=== PATIENT | female | born 1930 | race American Indian/Alaskan Native ===

== ENCOUNTER 2016-08-31 10:09 | Observation (INO) | payer MEDICARE, OTHER ==
[2016-08-31 10:24] VITALS: BMI 27.8
--- NOTE | 2016-08-31 10:37 | ED PDOC ---
Arrival/HPI - General Historian: Patient <Becky Morgan - Last Filed: 08/31/16 12:25> <Luca Nunezsteff - Last Filed: 08/31/16 16:24> - General Chief Complaint: Shortness Of Breath Time Seen by Provider: 08/31/16 10:15 - History of Present Illness Narrative History of Present Illness (Text): 08/31/16 10:29 86yo female with PMHx of congestive heart failure, arrhythmia with pace maker in place present with complaint of dyspnea on exertion and lower leg edema. States that lower leg edema started a week ago and IVY with orthopnea started yesterday. Admits to cough. Notes that she had cold like symptoms a week ago and just came back from vacation yesterday. She did not take her medications today. Denies chest pain, fever, chills, diaphoresis, calf pain, abdominal pain , nausea, vomiting, diarrhea, dizziness, any other complaint. she have a port in place on her right sided sternal chest. (Becky Morgan) Past Medical History - Provider Review Nursing Documentation Reviewed: Yes - Infectious Disease Hx of Infectious Diseases: None - Tetanus Immunization Tetanus Immunization: Unknown - Reproductive Menopause: Yes - Cardiac Hx Cardiac Disorders: Yes (Chronic Afib, cardiomyopathy) Hx Congestive Heart Failure: Yes (R port chest for primacor) Hx Hypertension: Yes (Pulmonary HTN) Hx Pacemaker: Yes Hx Peripheral Edema: Yes Other/Comment: defib with pacemaker - Pulmonary Hx Respiratory Disorders: Yes Hx Chronic Obstructive Pulmonary Disease (COPD): Yes - Neurological HX Cerebrovascular Accident: Yes - HEENT Hx HEENT Disorder: Yes (eyeglasses) Hx Blind: No - Renal Hx Renal Disorder: No - Endocrine/Metabolic Hx Hypothyroidism: Yes - Hematological/Oncological Hx Blood Transfusions: No Hx Blood Transfusion Reaction: No - Integumentary Hx Dermatological Disorder: Yes (b/l pedal edema) - Musculoskeletal/Rheumatological Hx Falls: Yes - Gastrointestinal Hx Gastrointestinal Disorders: Yes Other/Comment: ABDOMINAL HERNIA REPAIR,CHOLECYSTECTOMY - Genitourinary/Gynecological Hx Genitourinary Disorders: No Hx Reproductive Disorders: No - Psychiatric Hx Emotional Abuse: No Hx Physical Abuse: No Hx Substance Use: No - Surgical History Hx Cholecystectomy: Yes Other/Comment: hammer toe surgery, laminectomy in 1990, had an abdominal hernia repair. pacemaker/defib in L chest wall. R chest wall port placement - Anesthesia Hx Anesthesia: Yes Hx Anesthesia Reactions: No Hx Malignant Hyperthermia: No - Suicidal Assessment Feels Threatened In Home Enviroment: No <Becky Morgan - Last Filed: 08/31/16 12:25> Family/Social History - Physician Review Nursing Documentation Reviewed: Yes Family/Social History: Unknown Family HX Smoking Status: Former Smoker Hx Alcohol Use: No Hx Substance Use: No <Becky Morgan A - Last Filed: 08/31/16 12:25> Allergies/Home Meds <Becky Morgan A - Last Filed: 08/31/16 12:25> <Natty Nunez - Last Filed: 08/31/16 16:24> Allergies/Adverse Reactions: Allergies codeine Allergy (Verified 08/31/16 10:22) SHORTNESS OF BREATH Penicillins Allergy (Verified 08/31/16 10:22) RASH Review of Systems - Physician Review All systems were reviewed & negative as marked: Yes - Review of Systems Constitutional: Normal Eyes: Normal ENT: Normal Respiratory: SOB, Cough. absent: Sputum, Wheezing Cardiovascular: Edema, IVY, Orthopnea. absent: Chest Pain, Palpitations, Calf Pain Gastrointestinal: Normal Genitourinary Female: Normal Musculoskeletal: Normal Skin: Normal Neurological: Normal Endocrine: Normal Hemo/Lymphatic: Normal Psychiatric: Normal <Becky Morgan A - Last Filed: 08/31/16 12:25> Physical Exam Vital Signs Reviewed: Yes Temperature: Afebrile Blood Pressure: Normal Pulse: Regular Respiratory Rate: Normal Appearance: Positive for: Well-Appearing, Non-Toxic, Comfortable Pain Distress: None Mental Status: Positive for: Alert and Oriented X 3 - Systems Exam Head: Present: Atraumatic, Normocephalic Pupils: Present: PERRL Extroacular Muscles: Present: EOMI Conjunctiva: Present: Normal Mouth: Present: Moist Mucous Membranes Neck: Present: Normal Range of Motion Respiratory/Chest: Present: Clear to Auscultation, Good Air Exchange, Other ( bibsilar crackles noted). No: Respiratory Distress, Accessory Muscle Use, Wheezes, Decreased Breath Sounds, Rales, Retracting, Rhonchi, Tachypneic Cardiovascular: Present: Regular Rate and Rhythm, Normal S1, S2. No: Murmurs Abdomen: Present: Normal Bowel Sounds. No: Tenderness, Distention, Peritoneal Signs Back: Present: Normal Inspection Upper Extremity: Present: Normal Inspection. No: Cyanosis, Edema Lower Extremity: Present: Normal Inspection, Edema (3+ bipedal edema noted), CALF TENDERNESS, NORMAL PULSES, Normal ROM. No: Tenderness Neurological: Present: GCS=15, CN II-XII Intact, Speech Normal Skin: Present: Warm, Dry, Normal Color. No: Rashes Psychiatric: Present: Alert, Oriented x 3, Normal Insight, Normal Concentration <Diru,Happiness A - Last Filed: 08/31/16 12:25> Medical Decision Making <Diru,Happiness A - Last Filed: 08/31/16 12:25> <Natty Nunez - Last Filed: 08/31/16 16:24> ED Course and Treatment: 08/31/16 10:38 PT with history of CHF in ED for IVY and orthopnea. She is not hypoxic and anon toxic in ED. LE edema noted. Labs was ordered Chest xray ordered EKG - Completely paced @72bpm Pt likely having CHF exacerbation. She did not take her Lasix today. Will wait for lab and reassess for possible admission. 08/31/16 12:25 Pt remain hemodynamic (Diru,Happiness A) 08/31/16 16:22 Patient seen and examined by me with PA. History and meds reviewed. On exam, she has edema with crackles in both lung kraus, oxygen saturation is 86% on room air, when placed on nasal cannula oxygen saturations improved to 98%. Patient is on milrinone drip, will consult cardiology and restart drip, order lasix for likely component of CHF. Treatment plan d/w hospitalist and family, plan to admit for CHF, cardiac monitoring. On re-exam, no respiratory distress noted. (Natty Nunez) - Lab Interpretations Lab Results: 08/31/16 10:50 08/31/16 11:25 Lab Results 08/31/16 13:10: Urine Color Yellow, Urine Appearance Sl cloudy, Urine pH 6.0, Ur Specific [place] 1.015, Urine Protein Trace H, Urine Glucose (UA) Negative, Urine Ketones Negative, Urine Blood Trace-intact H, Urine Nitrate Negative, Urine Bilirubin Negative, Urine Urobilinogen 1.0 H, Ur Leukocyte Esterase Small H, Urine RBC 0 - 2, Urine WBC 0 - 2, Ur Epithelial Cells 1 - 3 08/31/16 11:25: PT 22.7 H, INR 2.10 H, APTT 31.1 H 08/31/16 11:25: Digoxin 1.5 08/31/16 11:25: Sodium 135, Chloride 96 L, Potassium 3.9, Carbon Dioxide 29, Anion Gap 14, BUN 25 H, Creatinine 1.4, Est GFR ( Amer) 43, Est GFR (Non- Af Amer) 36, Random Glucose 90, Calcium 9.3, Total Bilirubin 1.5 H, AST 29, ALT 27, Alkaline Phosphatase 97, Lactate Dehydrogenase 665, Total Creatine Kinase 69 , Troponin I 0.07 D, NT-Pro-B Natriuret Pep 6300 H, Total Protein 7.2, Albumin 3.7, Globulin 3.5, Albumin/Globulin Ratio 1.1 08/31/16 10:50: pO2 48, VBG pH 7.38, VBG pCO2 56.0, VBG HCO3 33.1 H, VBG Total CO2 34.8 H, VBG O2 Sat (Calc) 84.5 H, VBG Base Excess 6.6 H, VBG Potassium 4.0, Sodium 137.0, Chloride 98.0, Glucose 91, Lactate 1.8, FiO2 21.0, Venous Blood Potassium 4.0 08/31/16 10:50: WBC 6.8, RBC 3.72, Hgb 11.4 L, Hct 35.1 L, MCV 94.4, MCH 30.6, MCHC 32.5, RDW 17.0 H, Plt Count 170, MPV 10.6, Gran % 54.9, Lymph % (Auto) 32.0 , [place] % (Auto) 10.3 H, Eos % (Auto) 1.9, Baso % (Auto) 0.9, Gran # 3.72, Lymph # 2.2, [place] # 0.7 H, Eos # 0.1, Baso # 0.06 - RAD Interpretation Radiology Orders: 08/31/16 10:27 CHEST PORTABLE [RAD] Stat - Medication Orders Current Medication Orders: Amiodarone HCl (Cordarone) 400 mg PO 0800,1800 YAA Colchicine (Colocrys) 0.6 mg PO DAILY YAA Digoxin (Lanoxin) 0.125 mg PO 1400 YAA Last Admin: 08/31/16 15:10 Dose: 0.125 mg Doxycycline Hyclate (Doryx) 100 mg PO BID [facility] PRN Reason: Protocol Furosemide (Lasix) 40 mg IVP BID YAA Guaifenesin (Robitussin) 100 mg PO Q4H PRN PRN Reason: Cough Milrinone Lactate/Dextrose (Primacor 20mg/100ml D5w) 100 mls @ 4.545 mls/hr IV .Q22H1M PRN; Protocol; 0.2 MCG/KG/MIN PRN Reason: TITRATE PER MD ORDER Last Admin: 08/31/16 13:48 Dose: 4.545 mls/hr Isosorbide Mononitrate (Imdur) 60 mg PO 0600 YAA Levothyroxine Sodium (Synthroid) 112 mcg PO 0600 YAA Losartan Potassium (Cozaar) 100 mg PO DAILY YAA Metoprolol Succinate (Toprol Xl) 50 mg PO BRK YAA Pantoprazole Sodium (Protonix Ec Tab) 40 mg PO 0600 YAA Potassium Chloride (K-Dur 20 Meq Er Tab) 20 meq PO 0800,1800 YAA Warfarin Sodium (Coumadin) 7.5 mg PO 1800 [facility] PRN Reason: Protocol Discontinued Medications Doxycycline Hyclate (Doryx) 100 mg PO DAILY [facility] PRN Reason: Protocol Furosemide (Lasix) 40 mg IVP ONCE ONE Stop: 08/31/16 12:22 Last Admin: 08/31/16 13:58 Dose: 40 mg - PA / SENIOR MOBILE DEVELOPER / Resident Statement /DO has reviewed & agrees with the documentation as recorded. /DO has examined the patient and agrees with the treatment plan. <Natty Nunez - Last Filed: 08/31/16 16:24> Disposition/Present on Arrival - Present on Arrival Any Indicators Present on Arrival: No History of DVT/PE: No History of Uncontrolled Diabetes: No Urinary Catheter: No History of Decub. Ulcer: No History Surgical Site Infection Following: None - Disposition Have Diagnosis and Disposition been Completed?: Yes Disposition Time: 12:25 <Becky Morgan - Last Filed: 08/31/16 12:25> <Natty Nunez - Last Filed: 08/31/16 16:24> - Disposition Diagnosis: Congestive heart failure, Pneumonia Disposition: HOSPITALIZED Patient Problems: Current Active Problems Problem Status Onset Congestive heart failure Acute Pneumonia Acute Condition: FAIR
[2016-08-31 11:15] LABS: BASO # 0.06 K/mm3 (0.0-2.0); BASO % 0.9 % (0.0-3.0); EOS # 0.1 (0.0-0.7); EOS % 1.9 % (1.5-5.0); GRAN # 3.72 (1.4-6.5); GRAN % 54.9 % (50.0-68.0); HEMOGLOBIN 11.4 gm/dL (12.0-16.0); LYMPH # 2.2 (1.2-3.4); MEAN CELL VOLUME 94.4 fL (80.0-105.0); MEAN CORPUSCULAR HEMOGLOBIN 30.6 pg (25.0-35.0); MEAN CORPUSCULAR HGB CONC 32.5 g/dl (31.0-37.0); MEAN PLATELET VOLUME 10.6 fl (7.0-11.0); MONO # 0.7 (0.1-0.6); MONO % 10.3 % (1.0-6.0); PLATELET COUNT 170 10^3/uL (120.0-450.0); RBC 3.72 10^6/uL (3.5-6.1); WHITE BLOOD COUNT 6.8 10^3/ul (4.5-11.0)
[2016-08-31 11:16] LABS: VENOUS BLOOD GAS BASE EXCESS 6.6 mmol/L (0.0-2.0); VENOUS BLOOD GAS PO2 48 mm/Hg (30-55); VENOUS BLOOD PH 7.38 (7.32-7.43)
[2016-08-31 11:42] LABS: ALB/GLOB RATIO 1.1 (1.1-1.8); ALBUMIN 3.7 g/dL (3.0-4.8); CALCIUM 9.3 mg/dL (8.4-10.5)
[2016-08-31 11:47] LABS: INR 2.1 (0.93-1.08); PARTIAL THROMBOPLASTIN TIME 31.1 Seconds (23.7-30.8); PROTHROMBIN TIME 22.7 Seconds (9.9-11.8)
--- NOTE | 2016-08-31 11:52 | CARD ---
APPROVED REPORT EKG Measurement Heart [id number] <Conclusion> Electronic ventricular pacemaker
[2016-08-31 11:54] LABS: TROPONIN I 0.07 ng/mL
--- NOTE | 2016-08-31 12:02 | RAD ---
HISTORY: SOB COMPARISON: 03/29/2016 FINDINGS: The right IJV line terminates at the cavoatrial junction. LUNGS: Lung markings are accentuated with prominent central vasculature. There is pulmonary redistribution. There is question of left retrocardiac opacity PLEURA: There are small pleural effusions. No pneumothorax. CARDIOVASCULAR: There is persistent moderate cardiomegaly. Stable position of left-sided transvenous permanent pacing device. OSSEOUS STRUCTURES: No significant abnormalities. VISUALIZED UPPER ABDOMEN: Normal. OTHER FINDINGS: None. IMPRESSION: Findings are compatible with mild congestive heart failure. Left lower lobe atelectasis/pneumonia. Follow-up is advised.
[2016-08-31 13:24] LABS: URINE APPEARANCE SL CLOUDY (CLEAR); URINE BILIRUBIN NEGATIVE (NEGATIVE); URINE BLOOD TRACE-INTACT (NEGATIVE); URINE COLOR YELLOW (YELLOW); URINE GLUCOSE (UA) NEGATIVE (NEGATIVE); URINE LEUKOCYTE ESTERASE SMALL Leu/uL (NEGATIVE); URINE NITRATE NEGATIVE (NEGATIVE); URINE PROTEIN TRACE mg/dL (<30 mg/dL)
[2016-08-31 13:40] LABS: URINE RBC 0 - 2 /hpf (0-2); URINE WBC 0 - 2 /hpf (0-6)
[2016-08-31] MEDS: Milrinone 20mg/100ml D5W 100 ML IV PRN (13:48)
[2016-08-31] MEDS ORDERED: guaiFENesin 100 mg/5 ml Syrup UD PO PRN (15:00)
[2016-08-31] MEDS: Digoxin 125 mcg (0.125 mg) Tab PO SCH (15:10)
--- NOTE | 2016-08-31 15:39 | CP.PCM.HP ---
<Dino Prather - Last Filed: 08/31/16 15:21> History of Present Illness - History of Present Illness History of Present Illness: CC: Shortness of breath This is a 86 y/o female with hx systolic heart failure, atrial fibrillation - on coumadin, hypothyroidism presenting with complaints of shortness of breath for the past 5 days. Patient and daughter, who is at bedside, note increasing dyspnea on exertion. Patient ambulates about 15 to 20 paces back and forth to the bathroom at home. She is unable to exert herself beyond this without significant dyspnea. Patient and daughter state she is compliant with all medications. Patient has been on Milrinone infusion for about 2 years. Patient does report a cold-like illness about 3 weeks ago with an associated cough. She denies any other more recent illness. Patient also denies any chest pain, arm pain, or back pain. She further denies abdominal pain, nausea, vomiting or diarrhea. Most recent echo done on 03/2016 reveals an EF of 8.7% with 4 chamber dilation. PMH: systolic heart failure s/p ICD placement, Afib w/ pacer, hypothyroidism, gout, PSH: laminectomy, cholecystectomy, hernia repair FH: non-contributory Allergies: codeine Social hx: former smoker - quit 1990. Denies alcohol or illicit drug use PMD: Dr. [facility] [place]: Dr. Alcantara Present on Admission - Present on Admission Any Indicators Present on Admission: No Review of Systems - Constitutional Constitutional: Anorexia. absent: Chills, Fever - EENT Eyes: absent: Blurred Vision, Change in Vision Nose/Mouth/Throat: absent: Nasal Congestion, Nasal Discharge, Sore Throat - Cardiovascular Cardiovascular: Dyspnea, Dyspnea on Exertion, Edema, Leg Edema. absent: Chest Pain, Diaphoresis, Lightheadedness, Palpitations, Syncope - Respiratory Respiratory: Cough, Dyspnea. absent: Hemoptysis, Wheezing - Gastrointestinal Gastrointestinal: absent: Abdominal Pain, Diarrhea, Nausea, Vomiting - Genitourinary Genitourinary: absent: Dysuria, Hematuria - Musculoskeletal Musculoskeletal: absent: Back Pain - Integumentary Integumentary: absent: Pruritus, Rash - Neurological Neurological: absent: Dizziness, Numbness, Focal Weakness - Psychiatric Psychiatric: absent: Anxiety, Depression - Endocrine Endocrine: absent: Fatigue, Palpitations Past Patient History - Infectious Disease Hx of Infectious Diseases: None - Tetanus Immunizations Tetanus Immunization: Unknown - Past Medical History & Family History Past Medical History?: Yes - Past Social History Smoking Status: Former Smoker - CARDIAC Hx Cardiac Disorders: Yes (Chronic Afib, cardiomyopathy) Hx Congestive Heart Failure: Yes (R port chest for primacor) Hx Hypertension: Yes (Pulmonary HTN) Hx Pacemaker: Yes Hx Peripheral Edema: Yes Other/Comment: defib with pacemaker - PULMONARY Hx Respiratory Disorders: Yes Hx Chronic Obstructive Pulmonary Disease (COPD): Yes - NEUROLOGICAL HX Cerebrovascular Accident: Yes - HEENT Hx HEENT Problems: Yes (eyeglasses) Hx Blind: No - RENAL Hx Chronic Kidney Disease: No - ENDOCRINE/METABOLIC Hx Hypothyroidism: Yes - HEMATOLOGICAL/ONCOLOGICAL Hx Blood Transfusions: No Hx Blood Transfusion Reaction: No - INTEGUMENTARY Hx Dermatological Problems: Yes (b/l pedal edema) - MUSCULOSKELETAL/RHEUMATOLOGICAL Hx Falls: Yes - GASTROINTESTINAL Hx Gastrointestinal Disorders: Yes Other/Comment: ABDOMINAL HERNIA REPAIR,CHOLECYSTECTOMY - GENITOURINARY/GYNECOLOGICAL Hx Genitourinary Disorders: No Hx Reproductive Disorders: No - PSYCHIATRIC Hx Emotional Abuse: No Hx Physical Abuse: No Hx Substance Use: No - SURGICAL HISTORY Hx Cholecystectomy: Yes Other/Comment: hammer toe surgery, laminectomy in 1990, had an abdominal hernia repair. pacemaker/defib in L chest wall. R chest wall port placement - ANESTHESIA Hx Anesthesia: Yes Hx Anesthesia Reactions: No Hx Malignant Hyperthermia: No Meds Allergies/Adverse Reactions: Allergies Allergy/AdvReac Type Severity Reaction Status Date / Time codeine Allergy SHORTNESS Verified 08/31/16 10:22 OF BREATH Penicillins Allergy RASH Verified 08/31/16 10:22 Physical Exam - Constitutional Appears: Non-toxic, No Acute Distress - Head Exam Head Exam: ATRAUMATIC, NORMOCEPHALIC - Eye Exam Eye Exam: EOMI, PERRL - ENT Exam ENT Exam: Mucous Membranes Dry - Neck Exam Neck exam: Positive for: Normal Inspection - Respiratory Exam Respiratory Exam: Rales (right base ). absent: Accessory Muscle Use, Clear to Auscultation Bilateral, Rhonchi, Wheezes, Respiratory Distress - Cardiovascular Exam Cardiovascular Exam: REGULAR RHYTHM, +S1, +S2 - GI/Abdominal Exam GI & Abdominal Exam: Soft. absent: Distended, Tenderness - Extremities Exam Extremities exam: Positive for: full ROM, pedal edema, pedal pulses present. Negative for: calf tenderness, tenderness - Neurological Exam Neurological exam: Alert, Oriented x3 - Psychiatric Exam Psychiatric exam: Normal Affect, Normal Mood - Skin Skin Exam: Dry, Warm Results - Vital Signs Recent Vital Signs: Last Vital Signs Temp 97.9 F 08/31/16 10:24 Pulse 70 08/31/16 13:48 Resp 18 08/31/16 13:26 BP 140/71 08/31/16 13:58 Pulse Ox 97 08/31/16 13:26 - Labs Result Diagrams: 08/31/16 10:50 08/31/16 11:25 Assessment & Plan - Assessment and Plan (Free Text) Assessment: 86 y/o female with severe systolic heart failure presenting with shortness of breath secondary to CHF exacerbation. Recent echo reveals EF 8.7%. Patient is on continuous Milrinone infusion with an ICD. There is some pulmonary venous congestion noted on chest xray however this is similar to old films. There is mild LE edema. No evidence of acute cardiac ischemia. exacerbation of systolic heart failure - Lasix 40mg IV daily - continue home medications includin Digoxin, Milrinone, Lopressor, Losartan - Cardiology consulted - f.u I/O's - low sodium diet - started on Doxycycline as there is a recent hx of illness with cough hx atrial fibrillation - afib rate controlled - continue amiodarone - continue warfarin - f/u daily INR hx hypothroidism - continue synthroid - f/u TSH hx gout - continue colchicine ppx - cont warfarin - scd's - protonix 40 mg iv daily Patient seen and discussed with attending. <Marvin Guerrero - Last Filed: 08/31/16 16:25> Results - Vital Signs Recent Vital Signs: Last Vital Signs Temp 97.9 F 08/31/16 10:24 Pulse 70 08/31/16 15:27 Resp 18 08/31/16 15:27 BP 138/68 08/31/16 15:27 Pulse Ox 100 08/31/16 15:27 - Labs Result Diagrams: 08/31/16 10:50 08/31/16 11:25 Attending/Attestation - Attestation I have personally seen and examined this patient.: Yes I have fully participated in the care of the patient.: Yes I have reviewed all pertinent clinical information: Yes Notes (Text): 08/31/16 16:17 attending note; Patient seen and examined with resident in ER. Patient's daughter by the bedside. Patient is a 85-year-old female with a past medical history of cardiomyopathy, AICD, valvular heart disease, pulmonary hypertension, on home milrinone drip is admitted with increasing leg swelling and shortness of breath. Acute decompensated systolic heart failure. strict I's and O's. Daily weights. Cardiac diet ordered. Cardiology evaluation with requested. Continue milrinone drip. last echo showed EF of 9% in mar 2016.. advanced cardiomyopathy. continue digoxin, amiadarone, cozaar amd metoprolol. Therapeutic INR; continue on Coumadin. Upon discharge patient will follow-up with PMD . patient is DNR only. The diagnosis and treatment discussed with patient and patient's daughter in detail. 08/31/16 16:24
[2016-08-31] MEDS: Potassium Chloride 20 mEq ER Tab PO SCH (19:02)
[2016-08-31] MEDS ORDERED: Pneumococcal 23-Valent Vaccine IM ONE (19:40)
[2016-09-01] MEDS: Levothyroxine 112 MCG TAB PO SCH (05:34)
[2016-09-01] MEDS: Pantoprazole 40 mg EC Tab PO SCH (05:34)
[2016-09-01] MEDS: Potassium Chloride 20 mEq ER Tab PO SCH ×2 (09:23→17:53)
[2016-09-01] MEDS: Metoprolol Succinate 50 mg XL Tab PO SCH (09:23)
--- NOTE | 2016-09-01 12:09 | CP.PCM.PN ---
<YamilkaDino - Last Filed: 09/02/16 06:59> Subjective - Date & Time of Evaluation Date of Evaluation: 09/01/16 Time of Evaluation: 12:03 - Subjective Subjective: Patient seen and examined. No acute events overnight. Patient continues to complain of shortness of breath. Denies chest pain, palpitations. Continued on nasal oxygen. Objective - Vital Signs/Intake and Output Vital Signs (last 24 hours): Temp Pulse Resp BP Pulse Ox 97.8 F 70 20 140/82 98 09/01/16 05:57 09/01/16 09:23 09/01/16 05:57 09/01/16 09:24 09/01/16 05:57 Intake and Output: 09/01/16 09/01/16 06:59 18:59 Intake Total 148 Output Total 0 Balance 148 - Medications Medications: Current Medications Amiodarone HCl (Cordarone) 400 mg PO 0800,1800 [facility] Last Admin: 09/01/16 09:22 Dose: 400 mg Colchicine (Colocrys) 0.6 mg PO DAILY [facility] Last Admin: 09/01/16 09:23 Dose: 0.6 mg Digoxin (Lanoxin) 0.125 mg PO 1400 [facility] Last Admin: 08/31/16 15:10 Dose: 0.125 mg Doxycycline Hyclate (Doryx) 100 mg PO BID [facility] PRN Reason: Protocol Last Admin: 09/01/16 09:23 Dose: 100 mg Furosemide (Lasix) 40 mg IVP BID [facility] Last Admin: 09/01/16 09:24 Dose: 40 mg Guaifenesin (Robitussin) 100 mg PO Q4H PRN PRN Reason: Cough Milrinone Lactate/Dextrose (Primacor 20mg/100ml D5w) 100 mls @ 4.545 mls/hr IV .Q22H1M PRN; Protocol; 0.2 MCG/KG/MIN PRN Reason: TITRATE PER MD ORDER Last Admin: 08/31/16 13:48 Dose: 4.545 mls/hr Isosorbide Mononitrate (Imdur) 60 mg PO 0600 [facility] Last Admin: 09/01/16 05:34 Dose: 60 mg Levothyroxine Sodium (Synthroid) 112 mcg PO 0600 [facility] Last Admin: 09/01/16 05:34 Dose: 112 mcg Losartan Potassium (Cozaar) 100 mg PO DAILY [facility] Last Admin: 09/01/16 09:22 Dose: 100 mg Metoprolol Succinate (Toprol Xl) 50 mg PO BRK [facility] Last Admin: 09/01/16 09:23 Dose: 50 mg Pantoprazole Sodium (Protonix Ec Tab) 40 mg PO 0600 [facility] Last Admin: 09/01/16 05:34 Dose: 40 mg Potassium Chloride (K-Dur 20 Meq Er Tab) 20 meq PO 0800,1800 [facility] Last Admin: 09/01/16 09:23 Dose: 20 meq Warfarin Sodium (Coumadin) 7.5 mg PO 1800 [facility] PRN Reason: Protocol Last Admin: 08/31/16 19:02 Dose: 7.5 mg - Labs Labs: PT 22.7 Seconds (9.9-11.8) H 08/31/16 11:25 INR 2.10 (0.93-1.08) H 08/31/16 11:25 APTT 31.1 Seconds (23.7-30.8) H 08/31/16 11:25 - Constitutional Appears: Non-toxic, No Acute Distress - Head Exam Head Exam: ATRAUMATIC, NORMOCEPHALIC - Eye Exam Eye Exam: EOMI, PERRL - ENT Exam ENT Exam: Mucous Membranes Moist - Neck Exam Neck Exam: Full ROM, Normal Inspection - Respiratory Exam Respiratory Exam: Rales (bases). absent: Clear to Ausculation Bilateral, Rhonchi, Wheezes - Cardiovascular Exam Cardiovascular Exam: REGULAR RHYTHM, +S1, +S2 - GI/Abdominal Exam GI & Abdominal Exam: Soft, Normal Bowel Sounds. absent: Tenderness - Extremities Exam Extremities Exam: Full ROM, Pedal Edema (bilaterally extending to ankles ) - Neurological Exam Neurological Exam: Alert, Awake, Oriented x3 - Psychiatric Exam Psychiatric exam: Normal Affect, Normal Mood - Skin Skin Exam: Dry, Warm Assessment and Plan - Assessment and Plan (Free Text) Assessment: 86 y/o female with severe systolic heart failure presenting with shortness of breath secondary to CHF exacerbation. Recent echo reveals EF 8.7%. Patient is on continuous Milrinone infusion with an ICD. There is some pulmonary venous congestion noted on chest xray however this is similar to old films. There is mild LE edema. No evidence of acute cardiac ischemia. exacerbation of systolic heart failure - Lasix 40mg IV daily - continue home medications includin Digoxin, Milrinone, Lopressor, Losartan - Cardiology consulted - f.u I/O's - low sodium diet - started on Doxycycline as there is a recent hx of illness with cough hx atrial fibrillation - afib rate controlled - continue amiodarone - continue warfarin - f/u daily INR hx hypothroidism - continue synthroid - f/u TSH hx gout - continue colchicine ppx - cont warfarin - scd's - protonix 40 mg iv daily Patient seen and discussed with attending. <Marleny Man - Last Filed: 09/02/16 21:44> Objective - Vital Signs/Intake and Output Vital Signs (last 24 hours): Temp Pulse Resp BP Pulse Ox 97.5 F L 73 18 148/71 100 09/02/16 18:00 09/02/16 18:00 09/02/16 18:00 09/02/16 18:00 09/02/16 06:00 Intake and Output: 09/02/16 09/03/16 18:59 06:59 Intake Total 522 898 Output Total 500 850 Balance 22 48 - Medications Medications: Current Medications Amiodarone HCl (Cordarone) 400 mg PO 0800,1800 [facility] Last Admin: 09/02/16 08:36 Dose: Not Given Colchicine (Colocrys) 0.6 mg PO DAILY [facility] Last Admin: 09/02/16 10:04 Dose: 0.6 mg Digoxin (Lanoxin) 0.125 mg PO 1400 [facility] Last Admin: 09/02/16 14:21 Dose: 0.125 mg Doxycycline Hyclate (Doryx) 100 mg PO BID [facility] PRN Reason: Protocol Last Admin: 09/02/16 17:39 Dose: 100 mg Furosemide (Lasix) 40 mg IVP BID [facility] Last Admin: 09/02/16 17:38 Dose: 40 mg Guaifenesin (Robitussin) 100 mg PO Q4H PRN PRN Reason: Cough Milrinone Lactate/Dextrose (Primacor 20mg/100ml D5w) 100 mls @ 4.545 mls/hr IV .Q22H1M PRN; Protocol; 0.2 MCG/KG/MIN PRN Reason: TITRATE PER MD ORDER Last Admin: 09/02/16 09:57 Dose: 0.19 mcg/kg/min, 4.5 mls/hr Isosorbide Mononitrate (Imdur) 60 mg PO 0600 [facility] Last Admin: 09/02/16 05:35 Dose: 60 mg Levothyroxine Sodium (Synthroid) 112 mcg PO 0600 [facility] Last Admin: 09/02/16 05:35 Dose: 112 mcg Losartan Potassium (Cozaar) 100 mg PO DAILY [facility] Last Admin: 09/02/16 10:05 Dose: 100 mg Metoprolol Succinate (Toprol Xl) 50 mg PO BRK [facility] Last Admin: 09/02/16 08:40 Dose: 50 mg Pantoprazole Sodium (Protonix Ec Tab) 40 mg PO 0600 [facility] Last Admin: 09/02/16 05:35 Dose: 40 mg Potassium Chloride (K-Dur 20 Meq Er Tab) 20 meq PO 0800,1800 [facility] Last Admin: 09/02/16 17:39 Dose: 20 meq Warfarin Sodium (Coumadin) 7.5 mg PO 1800 [facility] PRN Reason: Protocol Last Admin: 09/02/16 17:39 Dose: 7.5 mg - Labs Labs: 09/02/16 06:10 09/02/16 06:10 PT 25.4 Seconds (9.9-11.8) H 09/02/16 06:10 INR 2.35 (0.93-1.08) H 09/02/16 06:10 APTT 31.1 Seconds (23.7-30.8) H 08/31/16 11:25 Attending/Attestation - Attestation I have personally seen and examined this patient.: Yes I have fully participated in the care of the patient.: Yes I have reviewed all pertinent clinical information, including history, physical exam and plan: Yes Notes (Text): 09/01/16 86 year old female with past medical history of cardiomyopathy, AICD, pulmonary hypertension and afib who is admitted for CHF exacerbation. Continue with iv lasix and milrinone. Daily weights and strict Is and Os. She is also on coumadin for anticoagulation. Cardiology is following. Marleny Man MD Hospitalist.
[2016-09-01] MEDS: Milrinone 20mg/100ml D5W 100 ML IV PRN (12:22)
--- NOTE | 2016-09-01 12:59 | CP.PCM.CON ---
History of Present Illness - History of Present Illness History of Present Illness: Britt Barlow is an 86-year-old old and well known to us with a history of a congestive cardiomyopathy and severe LV dysfunction. She was admitted with worsening dyspnea and leg edema from home. She was treated with IV diuretics in the emergency room. She feels mildly improved. She continues to have exertional dyspnea with minimal effort. She claims compliance with her medications. She has been on chronic home milrinone infusion as well. Review of Systems - Constitutional Constitutional: Weight Gain - Cardiovascular Cardiovascular: Dyspnea on Exertion, Edema - Respiratory Respiratory: Dyspnea - Gastrointestinal Gastrointestinal: absent: As Per HPI, Abdominal Pain, Belching, Bloating, Change in Bowel Habits, Change in Stool Character, Coffee Ground Emesis, Constipation, Cramping, Diarrhea, Dyspepsia, Dysphagia, Early Satiety, Excessive Flatus, Fecal Incontinence, Heartburn, Hematemesis, Hematochezia, Loose Stools, Melena, Nausea, Odynophagia, Temesmus, Vomiting, Other - Musculoskeletal Musculoskeletal: Limited Range of Motion, Stiffness Past Patient History - Infectious Disease Hx of Infectious Diseases: None - Tetanus Immunizations Tetanus Immunization: Unknown - Past Medical History & Family History Past Medical History?: Yes - Past Social History Smoking Status: Former Smoker - CARDIAC Hx Cardiac Disorders: Yes (Chronic Afib, cardiomyopathy) Hx Congestive Heart Failure: Yes (R port chest for primacor) Hx Hypertension: Yes (Pulmonary HTN) Hx Internal Defibrillator: Yes Hx Pacemaker: Yes Hx Peripheral Edema: Yes (+1 pitting ) Other/Comment: defib with pacemaker, aicd implant 2006 replaced 2011, rcw pac for milrinone infusion - PULMONARY Hx Respiratory Disorders: Yes Hx Chronic Obstructive Pulmonary Disease (COPD): Yes - NEUROLOGICAL HX Cerebrovascular Accident: Yes - HEENT Hx HEENT Problems: Yes (eyeglasses) Hx Blind: No Hx Cataracts: Yes (r eye 01/24/13) - RENAL Hx Chronic Kidney Disease: No - ENDOCRINE/METABOLIC Hx Hypothyroidism: Yes - HEMATOLOGICAL/ONCOLOGICAL Hx Blood Transfusions: No Hx Blood Transfusion Reaction: No - INTEGUMENTARY Hx Dermatological Problems: Yes (b/l pedal edema) - MUSCULOSKELETAL/RHEUMATOLOGICAL Hx Falls: No - GASTROINTESTINAL Hx Gastrointestinal Disorders: Yes Other/Comment: ABDOMINAL HERNIA REPAIR,CHOLECYSTECTOMY - GENITOURINARY/GYNECOLOGICAL Other/Comment: r breast bx benigh - PSYCHIATRIC Hx Substance Use: No - SURGICAL HISTORY Hx Cholecystectomy: Yes Other/Comment: hammer toe surgery, laminectomy in 1990, had an abdominal hernia repair. pacemaker/defib in L chest wall. R chest wall port placement - ANESTHESIA Hx Anesthesia: Yes Hx Anesthesia Reactions: No Hx Malignant Hyperthermia: No Meds Allergies/Adverse Reactions: Allergies Allergy/AdvReac Type Severity Reaction Status Date / Time codeine Allergy SHORTNESS Verified 08/31/16 10:22 OF BREATH Penicillins Allergy RASH Verified 08/31/16 10:22 - Medications Medications: Current Medications Amiodarone HCl (Cordarone) 400 mg PO 0800,1800 [facility] Last Admin: 09/01/16 09:22 Dose: 400 mg Colchicine (Colocrys) 0.6 mg PO DAILY [facility] Last Admin: 09/01/16 09:23 Dose: 0.6 mg Digoxin (Lanoxin) 0.125 mg PO 1400 [facility] Last Admin: 08/31/16 15:10 Dose: 0.125 mg Doxycycline Hyclate (Doryx) 100 mg PO BID [facility] PRN Reason: Protocol Last Admin: 09/01/16 09:23 Dose: 100 mg Furosemide (Lasix) 40 mg IVP BID [facility] Last Admin: 09/01/16 09:24 Dose: 40 mg Guaifenesin (Robitussin) 100 mg PO Q4H PRN PRN Reason: Cough Milrinone Lactate/Dextrose (Primacor 20mg/100ml D5w) 100 mls @ 4.545 mls/hr IV .Q22H1M PRN; Protocol; 0.2 MCG/KG/MIN PRN Reason: TITRATE PER MD ORDER Last Admin: 09/01/16 12:22 Dose: 0.19 mcg/kg/min, 4.5 mls/hr Isosorbide Mononitrate (Imdur) 60 mg PO 0600 [facility] Last Admin: 09/01/16 05:34 Dose: 60 mg Levothyroxine Sodium (Synthroid) 112 mcg PO 0600 [facility] Last Admin: 09/01/16 05:34 Dose: 112 mcg Losartan Potassium (Cozaar) 100 mg PO DAILY [facility] Last Admin: 09/01/16 09:22 Dose: 100 mg Metoprolol Succinate (Toprol Xl) 50 mg PO BRK [facility] Last Admin: 09/01/16 09:23 Dose: 50 mg Pantoprazole Sodium (Protonix Ec Tab) 40 mg PO 0600 [facility] Last Admin: 09/01/16 05:34 Dose: 40 mg Potassium Chloride (K-Dur 20 Meq Er Tab) 20 meq PO 0800,1800 [facility] Last Admin: 09/01/16 09:23 Dose: 20 meq Warfarin Sodium (Coumadin) 7.5 mg PO 1800 [facility] PRN Reason: Protocol Last Admin: 08/31/16 19:02 Dose: 7.5 mg Physical Exam - Constitutional Appears: Chronically Ill - Head Exam Head Exam: NORMAL INSPECTION - Respiratory Exam Additional comments: Diminished breath sounds at the bases. Bilateral rhonchi are heard. - Cardiovascular Exam Cardiovascular Exam: REGULAR RHYTHM - Expanded Cardiovascular Exam Expanded Type of murmur: Systolic Location: [place], [place] Lower Sternal Border - GI/Abdominal Exam GI & Abdominal Exam: Normal Bowel Sounds, Soft - Extremities Exam Extremities exam: Positive for: pedal edema - Neurological Exam Neurological exam: Alert, Oriented x3 - Psychiatric Exam Psychiatric exam: Normal Affect, Normal Mood Results - Vital Signs Recent Vital Signs: Last Vital Signs Temp 97.8 F 09/01/16 05:57 Pulse 74 09/01/16 12:22 Resp 19 09/01/16 12:00 BP 125/69 09/01/16 12:22 Pulse Ox 98 09/01/16 05:57 - Labs Result Diagrams: 08/31/16 10:50 08/31/16 11:25 - EKG Data EKG comments: ventricular paced rhythm, unchanged Assessment & Plan - Assessment and Plan (Free Text) Assessment: Impression: * Decompensated congestive heart failure, acute on chronic, systolic * severe congestive cardiomyopathy * Status post ICD implant Recommendations: * Continue milrinone infusion. * IV diuretics for now. * Continue rest of her oral medications unchanged. * Leg elevation and sodium restriction. * Will follow. - Date & Time Date: 09/01/16 Time: 12:00
[2016-09-01] MEDS: Digoxin 125 mcg (0.125 mg) Tab PO SCH (13:45)
[2016-09-02 00:16] VITALS: O2SAT 100
[2016-09-02] MEDS: Levothyroxine 112 MCG TAB PO SCH (05:35)
[2016-09-02] MEDS: Pantoprazole 40 mg EC Tab PO SCH (05:35)
[2016-09-02 06:40] LABS: INR 2.35 (0.93-1.08); PROTHROMBIN TIME 25.4 Seconds (9.9-11.8)
[2016-09-02 06:44] LABS: ALBUMIN 3.6 g/dL (3.0-4.8); CALCIUM 8.9 mg/dL (8.4-10.5)
[2016-09-02 06:54] LABS: BASO # 0.04 K/mm3 (0.0-2.0); BASO % 0.6 % (0.0-3.0); EOS # 0.2 (0.0-0.7); EOS % 3.4 % (1.5-5.0); GRAN # 4.13 (1.4-6.5); GRAN % 61.3 % (50.0-68.0); HEMOGLOBIN 11.3 gm/dL (12.0-16.0); LYMPH # 1.6 (1.2-3.4); LYMPH % 24.2 % (22.0-35.0); MEAN CELL VOLUME 94.4 fL (80.0-105.0); MEAN CORPUSCULAR HEMOGLOBIN 30.1 pg (25.0-35.0); MEAN CORPUSCULAR HGB CONC 31.9 g/dl (31.0-37.0); MEAN PLATELET VOLUME 10.7 fl (7.0-11.0); MONO # 0.7 (0.1-0.6); MONO % 10.5 % (1.0-6.0); PLATELET COUNT 152 10^3/uL (120.0-450.0); RBC 3.75 10^6/uL (3.5-6.1); WHITE BLOOD COUNT 6.7 10^3/ul (4.5-11.0)
--- NOTE | 2016-09-02 08:34 | CP.PCM.PN ---
Subjective - Date & Time of Evaluation Date of Evaluation: 09/02/16 Time of Evaluation: 07:00 - Subjective Subjective: Stable on 2R. Less dyspnea. She feels better. GI distress with amiod. doses>she wants to stop it. V/S noted. V. Paced PE: Lungs: rhonchi Cor.: S1S2 Abd.: soft Ext.: + edema Neuro.: alert I/O not done Labs noted: INR = 2.35, Cr.= 1.3, K+= 4.2 BC x2 NG at 24 hrs. Objective - Vital Signs/Intake and Output Vital Signs (last 24 hours): Temp Pulse Resp BP Pulse Ox 97.3 F L 65 18 126/72 100 09/02/16 06:00 09/02/16 06:00 09/02/16 06:00 09/02/16 06:00 09/02/16 06:00 Intake and Output: 09/02/16 09/02/16 06:59 18:59 Intake Total 120 122 Balance 120 122 - Medications Medications: Current Medications Amiodarone HCl (Cordarone) 400 mg PO 0800,1800 [facility] Last Admin: 09/01/16 18:01 Dose: Not Given Colchicine (Colocrys) 0.6 mg PO DAILY [facility] Last Admin: 09/01/16 09:23 Dose: 0.6 mg Digoxin (Lanoxin) 0.125 mg PO 1400 [facility] Last Admin: 09/01/16 13:45 Dose: 0.125 mg Doxycycline Hyclate (Doryx) 100 mg PO BID [facility] PRN Reason: Protocol Last Admin: 09/01/16 17:55 Dose: 100 mg Furosemide (Lasix) 40 mg IVP BID [facility] Last Admin: 09/01/16 17:55 Dose: 40 mg Guaifenesin (Robitussin) 100 mg PO Q4H PRN PRN Reason: Cough Milrinone Lactate/Dextrose (Primacor 20mg/100ml D5w) 100 mls @ 4.545 mls/hr IV .Q22H1M PRN; Protocol; 0.2 MCG/KG/MIN PRN Reason: TITRATE PER MD ORDER Last Admin: 09/01/16 12:22 Dose: 0.19 mcg/kg/min, 4.5 mls/hr Isosorbide Mononitrate (Imdur) 60 mg PO 0600 [facility] Last Admin: 09/02/16 05:35 Dose: 60 mg Levothyroxine Sodium (Synthroid) 112 mcg PO 0600 [facility] Last Admin: 09/02/16 05:35 Dose: 112 mcg Losartan Potassium (Cozaar) 100 mg PO DAILY [facility] Last Admin: 09/01/16 09:22 Dose: 100 mg Metoprolol Succinate (Toprol Xl) 50 mg PO BRK [facility] Last Admin: 09/01/16 09:23 Dose: 50 mg Pantoprazole Sodium (Protonix Ec Tab) 40 mg PO 0600 [facility] Last Admin: 09/02/16 05:35 Dose: 40 mg Potassium Chloride (K-Dur 20 Meq Er Tab) 20 meq PO 0800,1800 [facility] Last Admin: 09/01/16 17:53 Dose: 20 meq Warfarin Sodium (Coumadin) 7.5 mg PO 1800 [facility] PRN Reason: Protocol Last Admin: 09/01/16 17:54 Dose: 7.5 mg - Labs Labs: 09/02/16 06:10 09/02/16 06:10 PT 25.4 Seconds (9.9-11.8) H 09/02/16 06:10 INR 2.35 (0.93-1.08) H 09/02/16 06:10 APTT 31.1 Seconds (23.7-30.8) H 08/31/16 11:25 Assessment and Plan - Assessment and Plan (Free Text) Assessment: Dyspnea and edema CHF, Class IV with exacerbation CMP with severe LVD on home milrinone infusion VT/Bi-V ICD Severe MR, TR and PH CVA Gout Hypothyroidism S/P GB, Back and hernia surgeries Plan: Continue IV Lasix and milrinone infusion Hold amiodarone b/o GI upset Monitor I/O, weights, sats., labs. OOB as mireille. Will follow.
[2016-09-02] MEDS: Potassium Chloride 20 mEq ER Tab PO SCH ×2 (08:39→17:39)
[2016-09-02] MEDS: Metoprolol Succinate 50 mg XL Tab PO SCH (08:40)
[2016-09-02] MEDS: Milrinone 20mg/100ml D5W 100 ML IV PRN (09:57)
--- NOTE | 2016-09-02 11:50 | CP.PCM.PN ---
<YamilkaDino - Last Filed: 09/02/16 14:05> Subjective - Date & Time of Evaluation Date of Evaluation: 09/02/16 Time of Evaluation: 11:47 - Subjective Subjective: Patient seen and examined. No acute events overnight. Continued on nasal oxygen with adequate oxygen saturation. Shortness of breath is improved. 650cc/24hr urine output. Patient denies chest pain, abdominal pain, fever or chills. Objective - Vital Signs/Intake and Output Vital Signs (last 24 hours): Temp Pulse Resp BP Pulse Ox 97.3 F L 65 18 128/70 100 09/02/16 06:00 09/02/16 08:40 09/02/16 06:00 09/02/16 10:04 09/02/16 06:00 Intake and Output: 09/02/16 09/02/16 06:59 18:59 Intake Total 120 222 Balance 120 222 - Medications Medications: Current Medications Amiodarone HCl (Cordarone) 400 mg PO 0800,1800 [facility] Last Admin: 09/02/16 08:36 Dose: Not Given Colchicine (Colocrys) 0.6 mg PO DAILY [facility] Last Admin: 09/02/16 10:04 Dose: 0.6 mg Digoxin (Lanoxin) 0.125 mg PO 1400 [facility] Last Admin: 09/01/16 13:45 Dose: 0.125 mg Doxycycline Hyclate (Doryx) 100 mg PO BID [facility] PRN Reason: Protocol Last Admin: 09/02/16 10:04 Dose: 100 mg Furosemide (Lasix) 40 mg IVP BID [facility] Last Admin: 09/02/16 10:04 Dose: 40 mg Guaifenesin (Robitussin) 100 mg PO Q4H PRN PRN Reason: Cough Milrinone Lactate/Dextrose (Primacor 20mg/100ml D5w) 100 mls @ 4.545 mls/hr IV .Q22H1M PRN; Protocol; 0.2 MCG/KG/MIN PRN Reason: TITRATE PER MD ORDER Last Admin: 09/02/16 09:57 Dose: 0.19 mcg/kg/min, 4.5 mls/hr Isosorbide Mononitrate (Imdur) 60 mg PO 0600 [facility] Last Admin: 09/02/16 05:35 Dose: 60 mg Levothyroxine Sodium (Synthroid) 112 mcg PO 0600 [facility] Last Admin: 09/02/16 05:35 Dose: 112 mcg Losartan Potassium (Cozaar) 100 mg PO DAILY [facility] Last Admin: 09/02/16 10:05 Dose: 100 mg Metoprolol Succinate (Toprol Xl) 50 mg PO BRK [facility] Last Admin: 09/02/16 08:40 Dose: 50 mg Pantoprazole Sodium (Protonix Ec Tab) 40 mg PO 0600 [facility] Last Admin: 09/02/16 05:35 Dose: 40 mg Potassium Chloride (K-Dur 20 Meq Er Tab) 20 meq PO 0800,1800 [facility] Last Admin: 09/02/16 08:39 Dose: 20 meq Warfarin Sodium (Coumadin) 7.5 mg PO 1800 [facility] PRN Reason: Protocol Last Admin: 09/01/16 17:54 Dose: 7.5 mg - Labs Labs: 09/02/16 06:10 09/02/16 06:10 PT 25.4 Seconds (9.9-11.8) H 09/02/16 06:10 INR 2.35 (0.93-1.08) H 09/02/16 06:10 APTT 31.1 Seconds (23.7-30.8) H 08/31/16 11:25 - Constitutional Appears: Non-toxic, No Acute Distress - Head Exam Head Exam: ATRAUMATIC, NORMOCEPHALIC - Eye Exam Eye Exam: EOMI, PERRL - ENT Exam ENT Exam: Mucous Membranes Moist - Neck Exam Neck Exam: Full ROM, Normal Inspection - Respiratory Exam Respiratory Exam: Rales (bilateral bases ). absent: Accessory Muscle Use, Clear to Ausculation Bilateral, Rhonchi, Wheezes, Respiratory Distress - Cardiovascular Exam Cardiovascular Exam: Irregular Rhythm, +S1, +S2. absent: Tachycardia - GI/Abdominal Exam GI & Abdominal Exam: Soft, Normal Bowel Sounds. absent: Tenderness - Extremities Exam Extremities Exam: Pedal Edema (mild ). absent: Calf Tenderness - Neurological Exam Neurological Exam: Alert, Awake, Oriented x3 - Psychiatric Exam Psychiatric exam: Normal Affect, Normal Mood - Skin Skin Exam: Dry, Warm Assessment and Plan - Assessment and Plan (Free Text) Assessment: 86 y/o female with severe systolic heart failure presenting with shortness of breath secondary to CHF exacerbation. Recent echo reveals EF 8.7%. Patient is on continuous Milrinone infusion with an ICD. LE edema and respiratory status is improved. Adequate urine output. exacerbation of systolic heart failure - Lasix 40mg IV daily - continue home medications includin Digoxin, Milrinone, Lopressor, Losartan - Cardiology following -rec continued medical management as above. - f.u I/O's - low sodium diet - started on Doxycycline as there is a recent hx of illness with cough hx atrial fibrillation - afib rate controlled - amiodarone held due to gastric upset - continue warfarin - f/u daily INR hx hypothroidism - continue synthroid hx gout - continue colchicine ppx - cont warfarin - scd's - protonix 40 mg iv daily Patient seen and discussed with attending. <Marvin Guerrero - Last Filed: 09/02/16 15:52> Objective - Vital Signs/Intake and Output Vital Signs (last 24 hours): Temp Pulse Resp BP Pulse Ox 97.4 F L 71 18 135/74 100 09/02/16 12:00 09/02/16 12:00 09/02/16 12:00 09/02/16 12:00 09/02/16 06:00 Intake and Output: 09/02/16 09/02/16 06:59 18:59 Intake Total 120 222 Balance 120 222 - Medications Medications: Current Medications Amiodarone HCl (Cordarone) 400 mg PO 0800,1800 [facility] Last Admin: 09/02/16 08:36 Dose: Not Given Colchicine (Colocrys) 0.6 mg PO DAILY [facility] Last Admin: 09/02/16 10:04 Dose: 0.6 mg Digoxin (Lanoxin) 0.125 mg PO 1400 [facility] Last Admin: 09/02/16 14:21 Dose: 0.125 mg Doxycycline Hyclate (Doryx) 100 mg PO BID [facility] PRN Reason: Protocol Last Admin: 09/02/16 10:04 Dose: 100 mg Furosemide (Lasix) 40 mg IVP BID [facility] Last Admin: 09/02/16 10:04 Dose: 40 mg Guaifenesin (Robitussin) 100 mg PO Q4H PRN PRN Reason: Cough Milrinone Lactate/Dextrose (Primacor 20mg/100ml D5w) 100 mls @ 4.545 mls/hr IV .Q22H1M PRN; Protocol; 0.2 MCG/KG/MIN PRN Reason: TITRATE PER MD ORDER Last Admin: 09/02/16 09:57 Dose: 0.19 mcg/kg/min, 4.5 mls/hr Isosorbide Mononitrate (Imdur) 60 mg PO 0600 [facility] Last Admin: 09/02/16 05:35 Dose: 60 mg Levothyroxine Sodium (Synthroid) 112 mcg PO 0600 [facility] Last Admin: 09/02/16 05:35 Dose: 112 mcg Losartan Potassium (Cozaar) 100 mg PO DAILY [facility] Last Admin: 09/02/16 10:05 Dose: 100 mg Metoprolol Succinate (Toprol Xl) 50 mg PO BRK [facility] Last Admin: 09/02/16 08:40 Dose: 50 mg Pantoprazole Sodium (Protonix Ec Tab) 40 mg PO 0600 [facility] Last Admin: 09/02/16 05:35 Dose: 40 mg Potassium Chloride (K-Dur 20 Meq Er Tab) 20 meq PO 0800,1800 [facility] Last Admin: 09/02/16 08:39 Dose: 20 meq Warfarin Sodium (Coumadin) 7.5 mg PO 1800 [facility] PRN Reason: Protocol Last Admin: 09/01/16 17:54 Dose: 7.5 mg - Labs Labs: 09/02/16 06:10 09/02/16 06:10 PT 25.4 Seconds (9.9-11.8) H 09/02/16 06:10 INR 2.35 (0.93-1.08) H 09/02/16 06:10 APTT 31.1 Seconds (23.7-30.8) H 08/31/16 11:25 Attending/Attestation - Attestation I have personally seen and examined this patient.: Yes I have fully participated in the care of the patient.: Yes I have reviewed all pertinent clinical information, including history, physical exam and plan: Yes Notes (Text): 09/02/16 15:49 attending note; Patient seen and examined with resident in ER. Patient's daughter by the bedside. Patient is a 85-year-old female with a past medical history of cardiomyopathy, AICD, valvular heart disease, pulmonary hypertension, on home milrinone drip is admitted with increasing leg swelling and shortness of breath. Acute decompensated systolic heart failure. leg swelling is improving slowly. Cardiology evaluation with appreciated. Continue milrinone drip. last echo showed EF of 9% in mar 2016.. advanced cardiomyopathy. continue digoxin, cozaar amd metoprolol. amiadarone on hold. Therapeutic INR; continue on Coumadin. Upon discharge patient will follow-up with PMD . patient is DNR only. The diagnosis and treatment discussed with patient and patient's daughter in detail.
[2016-09-02] MEDS: Digoxin 125 mcg (0.125 mg) Tab PO SCH (14:21)
[2016-09-02 14:22] VITALS: PULSE 71
[2016-09-03] MEDS: Pantoprazole 40 mg EC Tab PO SCH (06:12)
[2016-09-03] MEDS: Levothyroxine 112 MCG TAB PO SCH (06:12)
[2016-09-03] MEDS: Milrinone 20mg/100ml D5W 100 ML IV PRN (06:12)
[2016-09-03 07:29] VITALS: TEMP 97.4
--- NOTE | 2016-09-03 08:01 | CP.PCM.PN ---
Subjective - Date & Time of Evaluation Date of Evaluation: 09/03/16 Time of Evaluation: 07:00 - Subjective Subjective: Stable on 2R. Less dyspnea. She feels better. GI distress with amiod. doses>she wants to stop it. V/S noted. V. Paced PE: Lungs: rhonchi Cor.: S1S2 Abd.: soft Ext.: + edema Neuro.: alert I/O: urine out 1350 cc. according to evening nurse. Labs 09/02 noted: Tp's labs pending. BC x2 NG at 48 hrs. Objective - Vital Signs/Intake and Output Vital Signs (last 24 hours): Temp Pulse Resp BP Pulse Ox 97.4 F L 74 21 128/72 100 09/03/16 06:00 09/03/16 06:00 09/03/16 06:00 09/03/16 06:00 09/03/16 00:01 Intake and Output: 09/03/16 09/03/16 06:59 18:59 Intake Total 2015 Output Total 1999 Balance 16 - Medications Medications: Current Medications Amiodarone HCl (Cordarone) 400 mg PO 0800,1800 [facility] Last Admin: 09/02/16 08:36 Dose: Not Given Colchicine (Colocrys) 0.6 mg PO DAILY [facility] Last Admin: 09/02/16 10:04 Dose: 0.6 mg Digoxin (Lanoxin) 0.125 mg PO 1400 [facility] Last Admin: 09/02/16 14:21 Dose: 0.125 mg Doxycycline Hyclate (Doryx) 100 mg PO BID [facility] PRN Reason: Protocol Last Admin: 09/02/16 17:39 Dose: 100 mg Furosemide (Lasix) 40 mg IVP BID [facility] Last Admin: 09/02/16 17:38 Dose: 40 mg Guaifenesin (Robitussin) 100 mg PO Q4H PRN PRN Reason: Cough Milrinone Lactate/Dextrose (Primacor 20mg/100ml D5w) 100 mls @ 4.545 mls/hr IV .Q22H1M PRN; Protocol; 0.2 MCG/KG/MIN PRN Reason: TITRATE PER MD ORDER Last Admin: 09/03/16 06:12 Dose: 0.19 mcg/kg/min, 4.318 mls/hr Isosorbide Mononitrate (Imdur) 60 mg PO 0600 [facility] Last Admin: 09/03/16 06:12 Dose: 60 mg Levothyroxine Sodium (Synthroid) 112 mcg PO 0600 [facility] Last Admin: 09/03/16 06:12 Dose: 112 mcg Losartan Potassium (Cozaar) 100 mg PO DAILY [facility] Last Admin: 09/02/16 10:05 Dose: 100 mg Metoprolol Succinate (Toprol Xl) 50 mg PO BRK [facility] Last Admin: 09/02/16 08:40 Dose: 50 mg Pantoprazole Sodium (Protonix Ec Tab) 40 mg PO 0600 [facility] Last Admin: 09/03/16 06:12 Dose: 40 mg Potassium Chloride (K-Dur 20 Meq Er Tab) 20 meq PO 0800,1800 [facility] Last Admin: 09/02/16 17:39 Dose: 20 meq Warfarin Sodium (Coumadin) 7.5 mg PO 1800 [facility] PRN Reason: Protocol Last Admin: 09/02/16 17:39 Dose: 7.5 mg - Labs Labs: 09/02/16 06:10 09/02/16 06:10 PT 25.4 Seconds (9.9-11.8) H 09/02/16 06:10 INR 2.35 (0.93-1.08) H 09/02/16 06:10 APTT 31.1 Seconds (23.7-30.8) H 08/31/16 11:25 Assessment and Plan - Assessment and Plan (Free Text) Assessment: Dyspnea and edema CHF, 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 Continue IV Lasix and milrinone infusion Hold amiodarone b/o GI upset Monitor I/O, weights, sats., labs. OOB as mireille./PT Will follow.
[2016-09-03] MEDS: Potassium Chloride 20 mEq ER Tab PO SCH ×2 (08:18→17:26)
[2016-09-03] MEDS: Metoprolol Succinate 50 mg XL Tab PO SCH (08:18)
[2016-09-03 09:00] LABS: ALBUMIN 3.5 g/dL (3.0-4.8); CALCIUM 8.7 mg/dL (8.4-10.5)
[2016-09-03 09:04] LABS: BASO # 0.04 K/mm3 (0.0-2.0); BASO % 0.6 % (0.0-3.0); EOS # 0.3 (0.0-0.7); EOS % 3.8 % (1.5-5.0); GRAN # 3.72 (1.4-6.5); HEMOGLOBIN 11.2 gm/dL (12.0-16.0); LYMPH % 29.4 % (22.0-35.0); MEAN CELL VOLUME 95.1 fL (80.0-105.0); MEAN CORPUSCULAR HEMOGLOBIN 30.6 pg (25.0-35.0); MEAN CORPUSCULAR HGB CONC 32.2 g/dl (31.0-37.0); MEAN PLATELET VOLUME 10.7 fl (7.0-11.0); MONO # 0.7 (0.1-0.6); MONO % 10.2 % (1.0-6.0); PLATELET COUNT 158 10^3/uL (120.0-450.0); RBC 3.66 10^6/uL (3.5-6.1); RED CELL DISTRIBUTION WIDTH 16.8 % (11.5-14.5); WHITE BLOOD COUNT 6.6 10^3/ul (4.5-11.0)
[2016-09-03 09:21] LABS: PROTHROMBIN TIME 45.3 Seconds (9.9-11.8)
[2016-09-03 09:24] LABS: INR 4.19 (0.93-1.08)
[2016-09-03 12:16] VITALS: RESP 18
[2016-09-03] MEDS: Digoxin 125 mcg (0.125 mg) Tab PO SCH (14:11)
--- NOTE | 2016-09-03 15:33 | CP.PCM.DIS ---
Provider - Provider Date of Admission: 08/31/16 14:27 Attending physician: Marvin Guerrero MD Primary care physician: Boaz Green MD Time Spent in preparation of Discharge (in minutes): 35 Diagnosis - Discharge Diagnosis (1) Congestive heart failure Status: Acute Hospital Course - Lab Results Lab Results: Most Recent Lab Values WBC 6.6 10^3/ul (4.5-11.0) 09/03/16 08:45 RBC 3.66 10^6/uL (3.5-6.1) 09/03/16 08:45 Hgb 11.2 gm/dL (12.0-16.0) L 09/03/16 08:45 Hct 34.8 % (36.0-48.0) L 09/03/16 08:45 MCV 95.1 fL (80.0-105.0) 09/03/16 08:45 MCH 30.6 pg (25.0-35.0) 09/03/16 08:45 MCHC 32.2 g/dl (31.0-37.0) 09/03/16 08:45 RDW 16.8 % (11.5-14.5) H 09/03/16 08:45 Plt Count 158 10^3/uL (120.0-450.0) 09/03/16 08:45 MPV 10.7 fl (7.0-11.0) 09/03/16 08:45 Gran % 56.0 % (50.0-68.0) 09/03/16 08:45 Lymph % (Auto) 29.4 % (22.0-35.0) 09/03/16 08:45 [place] % (Auto) 10.2 % (1.0-6.0) H 09/03/16 08:45 Eos % (Auto) 3.8 % (1.5-5.0) 09/03/16 08:45 Baso % (Auto) 0.6 % (0.0-3.0) 09/03/16 08:45 Gran # 3.72 (1.4-6.5) 09/03/16 08:45 Lymph # 2.0 (1.2-3.4) 09/03/16 08:45 [place] # 0.7 (0.1-0.6) H 09/03/16 08:45 Eos # 0.3 (0.0-0.7) 09/03/16 08:45 Baso # 0.04 K/mm3 (0.0-2.0) 09/03/16 08:45 PT 45.3 Seconds (9.9-11.8) H* 09/03/16 08:45 INR 4.19 (0.93-1.08) H* 09/03/16 08:45 APTT 31.1 Seconds (23.7-30.8) H 08/31/16 11:25 pO2 48 mm/Hg (30-55) 08/31/16 10:50 VBG pH 7.38 (7.32-7.43) 08/31/16 10:50 VBG pCO2 56.0 (40-60) 08/31/16 10:50 VBG HCO3 33.1 mmol/l (21-28) H 08/31/16 10:50 VBG Total CO2 34.8 mmol.L (22-28) H 08/31/16 10:50 VBG O2 Sat (Calc) 84.5 % (40-65) H 08/31/16 10:50 VBG Base Excess 6.6 mmol/L (0.0-2.0) H 08/31/16 10:50 VBG Potassium 4.0 mmol/L (3.6-5.2) 08/31/16 10:50 Sodium 137.0 mmol/L (132-148) 08/31/16 10:50 Chloride 98.0 mmol/L (98-107) 08/31/16 10:50 Glucose 91 mg/dl (65-105) 08/31/16 10:50 Lactate 1.8 mmol/L (0.7-2.1) 08/31/16 10:50 FiO2 21.0 % 08/31/16 10:50 Sodium 136 mmol/L (132-148) 09/03/16 08:45 Potassium 5.0 mmol/L (3.6-5.0) 09/03/16 08:45 Chloride 96 mmol/L (98-107) L 09/03/16 08:45 Carbon Dioxide 32 mmol/L (21-33) 09/03/16 08:45 Anion Gap 13 (10-20) 09/03/16 08:45 BUN 28 mg/dL (7-21) H 09/03/16 08:45 Creatinine 1.4 mg/dL (0.5-1.4) 09/03/16 08:45 Est GFR ( Amer) 43 09/03/16 08:45 Est GFR (Non-Af Amer) 36 09/03/16 08:45 Random Glucose 121 mg/dL (70-110) H 09/03/16 08:45 Calcium 8.7 mg/dL (8.4-10.5) 09/03/16 08:45 Total Bilirubin 1.3 mg/dL (0.2-1.3) 09/03/16 08:45 AST 33 U/L (15-39) 09/03/16 08:45 ALT 32 U/L (7-56) 09/03/16 08:45 Alkaline Phosphatase 99 U/L (38-133) 09/03/16 08:45 Lactate Dehydrogenase 665 U/L (333-699) 08/31/16 11:25 Total Creatine Kinase 69 U/L (35-230) 08/31/16 11:25 Troponin I 0.07 ng/mL D 08/31/16 11:25 NT-Pro-B Natriuret Pep 6300 pg/mL (0-450) H 08/31/16 11:25 Total Protein 7.0 g/dL (5.8-8.3) 09/03/16 08:45 Albumin 3.5 g/dL (3.0-4.8) 09/03/16 08:45 Globulin 3.5 gm/dL 09/03/16 08:45 Albumin/Globulin Ratio 1.0 (1.1-1.8) L 09/03/16 08:45 TSH 3rd Generation 4.27 mIU/mL (0.46-4.68) 09/02/16 06:10 Venous Blood Potassium 4.0 mmol/L (3.6-5.2) 08/31/16 10:50 Urine Color Yellow (YELLOW) 08/31/16 13:10 Urine Appearance Sl cloudy (CLEAR) 08/31/16 13:10 Urine pH 6.0 (4.7-8.0) 08/31/16 13:10 Ur Specific [place] 1.015 (1.005-1.035) 08/31/16 13:10 Urine Protein Trace mg/dL (<30 mg/dL) H 08/31/16 13:10 Urine Glucose (UA) Negative mg/dL (NEGATIVE) 08/31/16 13:10 Urine Ketones Negative mg/dL (NEGATIVE) 08/31/16 13:10 Urine Blood Trace-intact (NEGATIVE) H 08/31/16 13:10 Urine Nitrate Negative (NEGATIVE) 08/31/16 13:10 Urine Bilirubin Negative (NEGATIVE) 08/31/16 13:10 Urine Urobilinogen 1.0 E.U./dL (<1 E.U./dL) H 08/31/16 13:10 Ur Leukocyte Esterase Small Nay/uL (NEGATIVE) H 08/31/16 13:10 Urine RBC 0 - 2 /hpf (0-2) 08/31/16 13:10 Urine WBC 0 - 2 /hpf (0-6) 08/31/16 13:10 Ur Epithelial Cells 1 - 3 /hpf (0-5) 08/31/16 13:10 Digoxin 1.5 ng/mL (0.8-2.0) 08/31/16 11:25 - Hospital Course Hospital Course: This is a 86 y/o female with hx systolic heart failure, atrial fibrillation - on coumadin, hypothyroidism presenting with complaints of shortness of breath for the past 5 days. Patient and daughter, who is at bedside, note increasing dyspnea on exertion. Patient ambulates about 15 to 20 paces back and forth to the bathroom at home. She is unable to exert herself beyond this without significant dyspnea. Patient and daughter state she is compliant with all medications. Patient has been on Milrinone infusion for about 2 years. Patient does report a cold-like illness about 3 weeks ago with an associated cough. She denies any other more recent illness. Patient also denies any chest pain, arm pain, or back pain. She further denies abdominal pain, nausea, vomiting or diarrhea. Most recent echo done on 03/2016 reveals an EF of 8.7% with 4 chamber dilation. Patient was admitted with CHF exacerbation. Chest xray revealed mild pulmonary edema Discharge Exam - Head Exam Head Exam: ATRAUMATIC, NORMOCEPHALIC Discharge Plan - Follow Up Plan Condition: FAIR Disposition: REHAB FACILITY/REHAB UNIT Referrals: Boaz Green MD [Primary Care Provider] -
--- NOTE | 2016-09-03 15:42 | CP.PCM.DIS ---
<Dino Prather - Last Filed: 09/03/16 15:38> Provider - Provider Date of Admission: 08/31/16 14:27 Attending physician: Marvin Guerrero MD Primary care physician: Boaz Green MD Consults: cardiology - Dr. Alcantara Time Spent in preparation of Discharge (in minutes): 35 Diagnosis - Discharge Diagnosis (1) Congestive heart failure Status: Acute Hospital Course - Lab Results Lab Results: Most Recent Lab Values WBC 6.6 10^3/ul (4.5-11.0) 09/03/16 08:45 RBC 3.66 10^6/uL (3.5-6.1) 09/03/16 08:45 Hgb 11.2 gm/dL (12.0-16.0) L 09/03/16 08:45 Hct 34.8 % (36.0-48.0) L 09/03/16 08:45 MCV 95.1 fL (80.0-105.0) 09/03/16 08:45 MCH 30.6 pg (25.0-35.0) 09/03/16 08:45 MCHC 32.2 g/dl (31.0-37.0) 09/03/16 08:45 RDW 16.8 % (11.5-14.5) H 09/03/16 08:45 Plt Count 158 10^3/uL (120.0-450.0) 09/03/16 08:45 MPV 10.7 fl (7.0-11.0) 09/03/16 08:45 Gran % 56.0 % (50.0-68.0) 09/03/16 08:45 Lymph % (Auto) 29.4 % (22.0-35.0) 09/03/16 08:45 [place] % (Auto) 10.2 % (1.0-6.0) H 09/03/16 08:45 Eos % (Auto) 3.8 % (1.5-5.0) 09/03/16 08:45 Baso % (Auto) 0.6 % (0.0-3.0) 09/03/16 08:45 Gran # 3.72 (1.4-6.5) 09/03/16 08:45 Lymph # 2.0 (1.2-3.4) 09/03/16 08:45 [place] # 0.7 (0.1-0.6) H 09/03/16 08:45 Eos # 0.3 (0.0-0.7) 09/03/16 08:45 Baso # 0.04 K/mm3 (0.0-2.0) 09/03/16 08:45 PT 45.3 Seconds (9.9-11.8) H* 09/03/16 08:45 INR 4.19 (0.93-1.08) H* 09/03/16 08:45 APTT 31.1 Seconds (23.7-30.8) H 08/31/16 11:25 pO2 48 mm/Hg (30-55) 08/31/16 10:50 VBG pH 7.38 (7.32-7.43) 08/31/16 10:50 VBG pCO2 56.0 (40-60) 08/31/16 10:50 VBG HCO3 33.1 mmol/l (21-28) H 08/31/16 10:50 VBG Total CO2 34.8 mmol.L (22-28) H 08/31/16 10:50 VBG O2 Sat (Calc) 84.5 % (40-65) H 08/31/16 10:50 VBG Base Excess 6.6 mmol/L (0.0-2.0) H 08/31/16 10:50 VBG Potassium 4.0 mmol/L (3.6-5.2) 08/31/16 10:50 Sodium 137.0 mmol/L (132-148) 08/31/16 10:50 Chloride 98.0 mmol/L (98-107) 08/31/16 10:50 Glucose 91 mg/dl (65-105) 08/31/16 10:50 Lactate 1.8 mmol/L (0.7-2.1) 08/31/16 10:50 FiO2 21.0 % 08/31/16 10:50 Sodium 136 mmol/L (132-148) 09/03/16 08:45 Potassium 5.0 mmol/L (3.6-5.0) 09/03/16 08:45 Chloride 96 mmol/L (98-107) L 09/03/16 08:45 Carbon Dioxide 32 mmol/L (21-33) 09/03/16 08:45 Anion Gap 13 (10-20) 09/03/16 08:45 BUN 28 mg/dL (7-21) H 09/03/16 08:45 Creatinine 1.4 mg/dL (0.5-1.4) 09/03/16 08:45 Est GFR ( Amer) 43 09/03/16 08:45 Est GFR (Non-Af Amer) 36 09/03/16 08:45 Random Glucose 121 mg/dL (70-110) H 09/03/16 08:45 Calcium 8.7 mg/dL (8.4-10.5) 09/03/16 08:45 Total Bilirubin 1.3 mg/dL (0.2-1.3) 09/03/16 08:45 AST 33 U/L (15-39) 09/03/16 08:45 ALT 32 U/L (7-56) 09/03/16 08:45 Alkaline Phosphatase 99 U/L (38-133) 09/03/16 08:45 Lactate Dehydrogenase 665 U/L (333-699) 08/31/16 11:25 Total Creatine Kinase 69 U/L (35-230) 08/31/16 11:25 Troponin I 0.07 ng/mL D 08/31/16 11:25 NT-Pro-B Natriuret Pep 6300 pg/mL (0-450) H 08/31/16 11:25 Total Protein 7.0 g/dL (5.8-8.3) 09/03/16 08:45 Albumin 3.5 g/dL (3.0-4.8) 09/03/16 08:45 Globulin 3.5 gm/dL 09/03/16 08:45 Albumin/Globulin Ratio 1.0 (1.1-1.8) L 09/03/16 08:45 TSH 3rd Generation 4.27 mIU/mL (0.46-4.68) 09/02/16 06:10 Venous Blood Potassium 4.0 mmol/L (3.6-5.2) 08/31/16 10:50 Urine Color Yellow (YELLOW) 08/31/16 13:10 Urine Appearance Sl cloudy (CLEAR) 08/31/16 13:10 Urine pH 6.0 (4.7-8.0) 08/31/16 13:10 Ur Specific [place] 1.015 (1.005-1.035) 08/31/16 13:10 Urine Protein Trace mg/dL (<30 mg/dL) H 08/31/16 13:10 Urine Glucose (UA) Negative mg/dL (NEGATIVE) 08/31/16 13:10 Urine Ketones Negative mg/dL (NEGATIVE) 08/31/16 13:10 Urine Blood Trace-intact (NEGATIVE) H 08/31/16 13:10 Urine Nitrate Negative (NEGATIVE) 08/31/16 13:10 Urine Bilirubin Negative (NEGATIVE) 08/31/16 13:10 Urine Urobilinogen 1.0 E.U./dL (<1 E.U./dL) H 08/31/16 13:10 Ur Leukocyte Esterase Small Nay/uL (NEGATIVE) H 08/31/16 13:10 Urine RBC 0 - 2 /hpf (0-2) 08/31/16 13:10 Urine WBC 0 - 2 /hpf (0-6) 08/31/16 13:10 Ur Epithelial Cells 1 - 3 /hpf (0-5) 08/31/16 13:10 Digoxin 1.5 ng/mL (0.8-2.0) 08/31/16 11:25 - Hospital Course Hospital Course: This is a 86 y/o female with hx systolic heart failure, atrial fibrillation - on coumadin, hypothyroidism presenting with complaints of shortness of breath for the past 5 days. Patient and daughter, who is at bedside, note increasing dyspnea on exertion. Patient ambulates about 15 to 20 paces back and forth to the bathroom at home. She is unable to exert herself beyond this without significant dyspnea. Patient and daughter state she is compliant with all medications. Patient has been on Milrinone infusion for about 2 years. Patient does report a cold-like illness about 3 weeks ago with an associated cough. She denies any other more recent illness. Patient also denies any chest pain, arm pain, or back pain. She further denies abdominal pain, nausea, vomiting or diarrhea. Most recent echo done on 03/2016 reveals an EF of 8.7% with 4 chamber dilation. The patient was admitted with acute CHF exacerbation. Chest xray revealed mild pulmonary edema however this was relatively unchanged from prior images. The patient was continued on Milrinone as well as beta emilia, aspirin, statin, VIDA/ARB. Lasix was given IV BID with improvement in LE edema as well as respiratory status. Cardiology was consulted and recommended continued medical management. Echo was done in March, revealing EF of 8.7%. Patient was evaluated by PT and assess to be deconditioned and would benefit from physical rehabilitation. The patient is transferred to TCU for further medical management of CHF as well as for physical rehabilitation. Discharge Exam - Head Exam Head Exam: ATRAUMATIC, NORMOCEPHALIC - Eye Exam Eye Exam: EOMI, PERRL - ENT Exam ENT Exam: Mucous Membranes Moist - Respiratory Exam Respiratory Exam: Rales. absent: Rhonchi, Wheezes, Respiratory Distress - Cardiovascular Exam Cardiovascular Exam: REGULAR RHYTHM, +S1, +S2 - GI/Abdominal Exam GI & Abdominal Exam: Normal Bowel Sounds, Unremarkable - Extremities Exam Extremities exam: full ROM, pedal edema - Neurological Exam Neurological exam: Alert, Oriented x3 - Psychiatric Exam Psychiatric exam: Normal Affect, Normal Mood - Skin Skin Exam: Dry, Warm Discharge Plan - Follow Up Plan Condition: FAIR Disposition: REHAB FACILITY/REHAB UNIT Instructions: Heart Failure (DC), Heart Failure (GEN), Chest Pain (DC), Pacemaker (DC), Pulmonary Edema (GEN) Additional Instructions: 1. Transfer to TCU. 2. Follow up with Cardiology DR. Alcantara. 3. Follow up with PT. 4. Follow up with PMD DR. Green. Referrals: Boaz Green MD [Primary Care Provider] - <Marvin Guerrero - Last Filed: 09/03/16 17:03> Provider - Provider Date of Admission: 08/31/16 14:27 Attending physician: Marvin Guerrero MD Primary care physician: Boaz Green MD Hospital Course - Lab Results Lab Results: Most Recent Lab Values WBC 6.6 10^3/ul (4.5-11.0) 09/03/16 08:45 RBC 3.66 10^6/uL (3.5-6.1) 09/03/16 08:45 Hgb 11.2 gm/dL (12.0-16.0) L 09/03/16 08:45 Hct 34.8 % (36.0-48.0) L 09/03/16 08:45 MCV 95.1 fL (80.0-105.0) 09/03/16 08:45 MCH 30.6 pg (25.0-35.0) 09/03/16 08:45 MCHC 32.2 g/dl (31.0-37.0) 09/03/16 08:45 RDW 16.8 % (11.5-14.5) H 09/03/16 08:45 Plt Count 158 10^3/uL (120.0-450.0) 09/03/16 08:45 MPV 10.7 fl (7.0-11.0) 09/03/16 08:45 Gran % 56.0 % (50.0-68.0) 09/03/16 08:45 Lymph % (Auto) 29.4 % (22.0-35.0) 09/03/16 08:45 [place] % (Auto) 10.2 % (1.0-6.0) H 09/03/16 08:45 Eos % (Auto) 3.8 % (1.5-5.0) 09/03/16 08:45 Baso % (Auto) 0.6 % (0.0-3.0) 09/03/16 08:45 Gran # 3.72 (1.4-6.5) 09/03/16 08:45 Lymph # 2.0 (1.2-3.4) 09/03/16 08:45 [place] # 0.7 (0.1-0.6) H 09/03/16 08:45 Eos # 0.3 (0.0-0.7) 09/03/16 08:45 Baso # 0.04 K/mm3 (0.0-2.0) 09/03/16 08:45 PT 45.3 Seconds (9.9-11.8) H* 09/03/16 08:45 INR 4.19 (0.93-1.08) H* 09/03/16 08:45 APTT 31.1 Seconds (23.7-30.8) H 08/31/16 11:25 pO2 48 mm/Hg (30-55) 08/31/16 10:50 VBG pH 7.38 (7.32-7.43) 08/31/16 10:50 VBG pCO2 56.0 (40-60) 08/31/16 10:50 VBG HCO3 33.1 mmol/l (21-28) H 08/31/16 10:50 VBG Total CO2 34.8 mmol.L (22-28) H 08/31/16 10:50 VBG O2 Sat (Calc) 84.5 % (40-65) H 08/31/16 10:50 VBG Base Excess 6.6 mmol/L (0.0-2.0) H 08/31/16 10:50 VBG Potassium 4.0 mmol/L (3.6-5.2) 08/31/16 10:50 Sodium 137.0 mmol/L (132-148) 08/31/16 10:50 Chloride 98.0 mmol/L (98-107) 08/31/16 10:50 Glucose 91 mg/dl (65-105) 08/31/16 10:50 Lactate 1.8 mmol/L (0.7-2.1) 08/31/16 10:50 FiO2 21.0 % 08/31/16 10:50 Sodium 136 mmol/L (132-148) 09/03/16 08:45 Potassium 5.0 mmol/L (3.6-5.0) 09/03/16 08:45 Chloride 96 mmol/L (98-107) L 09/03/16 08:45 Carbon Dioxide 32 mmol/L (21-33) 09/03/16 08:45 Anion Gap 13 (10-20) 09/03/16 08:45 BUN 28 mg/dL (7-21) H 09/03/16 08:45 Creatinine 1.4 mg/dL (0.5-1.4) 09/03/16 08:45 Est GFR ( Amer) 43 09/03/16 08:45 Est GFR (Non-Af Amer) 36 09/03/16 08:45 Random Glucose 121 mg/dL (70-110) H 09/03/16 08:45 Calcium 8.7 mg/dL (8.4-10.5) 09/03/16 08:45 Total Bilirubin 1.3 mg/dL (0.2-1.3) 09/03/16 08:45 AST 33 U/L (15-39) 09/03/16 08:45 ALT 32 U/L (7-56) 09/03/16 08:45 Alkaline Phosphatase 99 U/L (38-133) 09/03/16 08:45 Lactate Dehydrogenase 665 U/L (333-699) 08/31/16 11:25 Total Creatine Kinase 69 U/L (35-230) 08/31/16 11:25 Troponin I 0.07 ng/mL D 08/31/16 11:25 NT-Pro-B Natriuret Pep 6300 pg/mL (0-450) H 08/31/16 11:25 Total Protein 7.0 g/dL (5.8-8.3) 09/03/16 08:45 Albumin 3.5 g/dL (3.0-4.8) 09/03/16 08:45 Globulin 3.5 gm/dL 09/03/16 08:45 Albumin/Globulin Ratio 1.0 (1.1-1.8) L 09/03/16 08:45 TSH 3rd Generation 4.27 mIU/mL (0.46-4.68) 09/02/16 06:10 Venous Blood Potassium 4.0 mmol/L (3.6-5.2) 08/31/16 10:50 Urine Color Yellow (YELLOW) 08/31/16 13:10 Urine Appearance Sl cloudy (CLEAR) 08/31/16 13:10 Urine pH 6.0 (4.7-8.0) 08/31/16 13:10 Ur Specific [place] 1.015 (1.005-1.035) 08/31/16 13:10 Urine Protein Trace mg/dL (<30 mg/dL) H 08/31/16 13:10 Urine Glucose (UA) Negative mg/dL (NEGATIVE) 08/31/16 13:10 Urine Ketones Negative mg/dL (NEGATIVE) 08/31/16 13:10 Urine Blood Trace-intact (NEGATIVE) H 08/31/16 13:10 Urine Nitrate Negative (NEGATIVE) 08/31/16 13:10 Urine Bilirubin Negative (NEGATIVE) 08/31/16 13:10 Urine Urobilinogen 1.0 E.U./dL (<1 E.U./dL) H 08/31/16 13:10 Ur Leukocyte Esterase Small Nay/uL (NEGATIVE) H 08/31/16 13:10 Urine RBC 0 - 2 /hpf (0-2) 08/31/16 13:10 Urine WBC 0 - 2 /hpf (0-6) 08/31/16 13:10 Ur Epithelial Cells 1 - 3 /hpf (0-5) 08/31/16 13:10 Digoxin 1.5 ng/mL (0.8-2.0) 08/31/16 11:25 Attending/Attestation - Attestation I have personally seen and examined this patient.: Yes I have fully participated in the care of the patient.: Yes I have reviewed all pertinent clinical information, including history, physical exam and plan: Yes Notes (Text): 09/03/16 17:01 attending note; Patient seen and examined with resident. Patient is a 85-year-old female with a past medical history of cardiomyopathy, AICD, valvular heart disease, pulmonary hypertension, on home milrinone drip is admitted with increasing leg swelling and shortness of breath. Acute decompensated systolic heart failure. leg swelling is improving slowly. Cardiology evaluation with appreciated. Continue milrinone drip. continue digoxin, cozaar amd metoprolol. amiadarone on hold. Therapeutic INR; continue on Coumadin. PT evaluation appreciated. Transfer the patient to TCU. Upon discharge patient will follow-up with PMD . diagnosis; severe cardiomyopathy AICD pulmonary hypertension
[2016-09-03 17:28] VITALS: BP 124/63
[2016-09-03 18:19] VITALS: PULSE 70
== END 2016-09-03 18:11 ==
LOC: ED 10:09 → INTOOBSV 14:27 → ERH 14:27 → 2RNO 17:19
PROVIDERS: ADMIT Internal Medicine; ATTEND Internal Medicine
DX: I11.0 Hypertensive heart disease with heart failure (principal); I50.23 Acute on chronic systolic (congestive) heart failure; I27.2 Other secondary pulmonary hypertension; I42.0 Dilated cardiomyopathy; I48.2 Chronic atrial fibrillation; M10.9 Gout, unspecified; E03.9 Hypothyroidism, unspecified; Z66 Do not resuscitate; J44.9 Chronic obstructive pulmonary disease, unspecified; Z79.01 Long term (current) use of anticoagulants; Z86.73 Personal history of transient ischemic attack (TIA), and cerebral infarction without residual deficits; Z95.810 Presence of automatic (implantable) cardiac defibrillator; Z87.891 Personal history of nicotine dependence
CPT/HCPCS: 36415; 71010; 80053; 80162; 81001; 82550; 82803; 83615; 83880; 84443; 84484; 85025; 85610; 85730; 87040; 87086; 93005; 96374; 97110; 97116; 97162; 97530; 99285; G0378; G8978; G8979; J1940; J2260

== ENCOUNTER 2016-09-03 18:12 | Inpatient (IN) | payer MEDICARE, OTHER ==
[2016-09-03 18:42] VITALS: BMI 27.6
[2016-09-03] MEDS ORDERED: guaiFENesin 100 mg/5 ml Syrup UD PO PRN (18:42)
[2016-09-03] MEDS ORDERED: [UNRECOGNIZED DRUG - OTHER] IV SCH (18:45)
[2016-09-03] MEDS ORDERED: MILRINONE 20 MG/100 ML IV SCH (18:45)
[2016-09-03] MEDS ORDERED: Milrinone 20mg/100ml D5W 100 ML IV PRN (19:03)
[2016-09-04] MEDS: Milrinone 20mg/100ml D5W 100 ML IV PRN ×2 (05:09→23:58)
[2016-09-04] MEDS: Pantoprazole 40 mg EC Tab PO SCH (05:11)
[2016-09-04] MEDS: Levothyroxine 112 MCG TAB PO SCH (06:31)
[2016-09-04 06:37] LABS: BASO # 0.05 K/mm3 (0.0-2.0); BASO % 0.8 % (0.0-3.0); EOS # 0.2 (0.0-0.7); EOS % 3.2 % (1.5-5.0); GRAN # 3.43 (1.4-6.5); GRAN % 54.4 % (50.0-68.0); HEMOGLOBIN 11.4 gm/dL (12.0-16.0); LYMPH # 1.9 (1.2-3.4); MEAN CELL VOLUME 94.5 fL (80.0-105.0); MEAN CORPUSCULAR HEMOGLOBIN 30.1 pg (25.0-35.0); MEAN CORPUSCULAR HGB CONC 31.8 g/dl (31.0-37.0); MEAN PLATELET VOLUME 10.6 fl (7.0-11.0); MONO # 0.7 (0.1-0.6); MONO % 11.6 % (1.0-6.0); PLATELET COUNT 155 10^3/uL (120.0-450.0); RBC 3.79 10^6/uL (3.5-6.1); RED CELL DISTRIBUTION WIDTH 16.9 % (11.5-14.5); WHITE BLOOD COUNT 6.3 10^3/ul (4.5-11.0)
[2016-09-04 06:41] LABS: CALCIUM 9.1 mg/dL (8.4-10.5)
[2016-09-04 06:51] LABS: PROTHROMBIN TIME 55.4 Seconds (9.9-11.8)
[2016-09-04 06:54] LABS: INR 5.13 (0.93-1.08)
[2016-09-04] MEDS: Potassium Chloride 20 mEq ER Tab PO SCH (08:39)
[2016-09-04] MEDS: Metoprolol Succinate 50 mg XL Tab PO SCH (08:46)
--- NOTE | 2016-09-04 22:42 | CP.PCM.HP ---
<Jose Enrique Feliz - Last Filed: 09/04/16 22:39> Meds Allergies/Adverse Reactions: Allergies Allergy/AdvReac Type Severity Reaction Status Date / Time codeine Allergy SHORTNESS Verified 08/31/16 10:22 OF BREATH Penicillins Allergy RASH Verified 08/31/16 10:22 Results - Vital Signs Recent Vital Signs: Last Vital Signs Temp 98.1 F 09/04/16 05:48 Pulse 77 09/04/16 08:46 Resp 20 09/04/16 05:48 BP 126/69 09/04/16 13:37 Pulse Ox 100 09/04/16 05:48 - Labs Result Diagrams: 09/04/16 06:20 09/04/16 06:20 Labs: Laboratory Results - last 24 hr 09/04/16 09/04/16 09/04/16 06:20 06:20 06:20 WBC 6.3 RBC 3.79 Hgb 11.4 L Hct 35.8 L MCV 94.5 MCH 30.1 MCHC 31.8 RDW 16.9 H Plt Count 155 MPV 10.6 Gran % 54.4 Lymph % (Auto) 30.0 [place] % (Auto) 11.6 H Eos % (Auto) 3.2 Baso % (Auto) 0.8 Gran # 3.43 Lymph # 1.9 [place] # 0.7 H Eos # 0.2 Baso # 0.05 PT 55.4 H* INR 5.13 H* Sodium 136 Potassium 4.6 Chloride 98 Carbon Dioxide 28 Anion Gap 15 BUN 30 H Creatinine 1.3 Est GFR ( Amer) 47 Est GFR (Non-Af Amer) 39 Random Glucose 87 Calcium 9.1 Attending/Attestation - Attestation I have personally seen and examined this patient.: Yes I have fully participated in the care of the patient.: Yes I have reviewed all pertinent clinical information: Yes Notes (Text): 09/04/16 22:39 Patient recently discharged from the acute care facility. Currently undergoing rehab in TCU setting. Abdominal symptoms are improved. Labs and INR noted. Hold coumadin. Cardiology consultation needed for continuation of Amiodarone. Agree with the plan of care outlined by the resident. <Dino Prather - Last Filed: 09/05/16 16:26> History of Present Illness - History of Present Illness History of Present Illness: This is a 86 y/o female with hx systolic heart failure, atrial fibrillation - on coumadin, hypothyroidism presenting with complaints of shortness of breath for the past 5 days. Patient and daughter, who is at bedside, note increasing dyspnea on exertion. Patient ambulates about 15 to 20 paces back and forth to the bathroom at home. She is unable to exert herself beyond this without significant dyspnea. Patient and daughter state she is compliant with all medications. Patient has been on Milrinone infusion for about 2 years. Patient does report a cold-like illness about 3 weeks ago with an associated cough. She denies any other more recent illness. Patient also denies any chest pain, arm pain, or back pain. She further denies abdominal pain, nausea, vomiting or diarrhea. Most recent echo done on 03/2016 reveals an EF of 8.7% with 4 chamber dilation. The patient was admitted with acute CHF exacerbation. Chest xray revealed mild pulmonary edema however this was relatively unchanged from prior images. The patient was continued on Milrinone as well as beta emilia, aspirin, statin, VIDA/ARB. Lasix was given IV BID with improvement in LE edema as well as respiratory status. Cardiology was consulted and recommended continued medical management. Echo was done in March, revealing EF of 8.7%. Patient was evaluated by PT and assess to be deconditioned and would benefit from physical rehabilitation. The patient is transferred to TCU for further medical management of CHF as well as for physical rehabilitation. Currently the patient is in TCU sitting up in the chair. Shortness of breath is improved. Patient is participating in physical therapy. She is afebrile. Denies chest pain, abdominal pain, n/v/d, fever or chills. Present on Admission - Present on Admission Any Indicators Present on Admission: No Past Patient History - Infectious Disease Hx of Infectious Diseases: None - Tetanus Immunizations Tetanus Immunization: Unknown - Past Medical History & Family History Past Medical History?: Yes - Past Social History Smoking Status: Former Smoker - CARDIAC Hx Cardiac Disorders: Yes (Chronic Afib, cardiomyopathy) Hx Congestive Heart Failure: Yes (R port chest for primacor) Hx Hypertension: Yes (Pulmonary HTN) - PULMONARY Hx Chronic Obstructive Pulmonary Disease (COPD): Yes - NEUROLOGICAL HX Cerebrovascular Accident: Yes - HEENT Hx HEENT Problems: Yes (eyeglasses) Hx Blind: No Hx Cataracts: Yes (r eye 01/24/13) - RENAL Hx Chronic Kidney Disease: No - ENDOCRINE/METABOLIC Hx Hypothyroidism: Yes - HEMATOLOGICAL/ONCOLOGICAL Hx Blood Transfusions: No Hx Blood Transfusion Reaction: No - INTEGUMENTARY Hx Dermatological Problems: Yes (b/l pedal edema) - MUSCULOSKELETAL/RHEUMATOLOGICAL Hx Falls: Yes - GASTROINTESTINAL Hx Gastrointestinal Disorders: Yes Other/Comment: ABDOMINAL HERNIA REPAIR,CHOLECYSTECTOMY - GENITOURINARY/GYNECOLOGICAL Hx Reproductive Disorders: No Other/Comment: r breast bx benigh - PSYCHIATRIC Hx Emotional Abuse: No Hx Physical Abuse: No - SURGICAL HISTORY Hx Cholecystectomy: Yes Other/Comment: hammer toe surgery, laminectomy in 1990, had an abdominal hernia repair. pacemaker/defib in L chest wall. R chest wall port placement - ANESTHESIA Hx Anesthesia: Yes Hx Anesthesia Reactions: No Hx Malignant Hyperthermia: No Results - Vital Signs Recent Vital Signs: Last Vital Signs Temp 98.1 F 09/04/16 05:48 Pulse 77 09/04/16 08:46 Resp 20 09/04/16 05:48 BP 126/69 09/04/16 08:46 Pulse Ox 100 09/04/16 05:48 - Labs Result Diagrams: 09/05/16 08:10 09/05/16 08:10 Labs: Laboratory Results - last 24 hr 09/04/16 09/04/16 09/04/16 06:20 06:20 06:20 WBC 6.3 RBC 3.79 Hgb 11.4 L Hct 35.8 L MCV 94.5 MCH 30.1 MCHC 31.8 RDW 16.9 H Plt Count 155 MPV 10.6 Gran % 54.4 Lymph % (Auto) 30.0 [place] % (Auto) 11.6 H Eos % (Auto) 3.2 Baso % (Auto) 0.8 Gran # 3.43 Lymph # 1.9 [place] # 0.7 H Eos # 0.2 Baso # 0.05 PT 55.4 H* INR 5.13 H* Sodium 136 Potassium 4.6 Chloride 98 Carbon Dioxide 28 Anion Gap 15 BUN 30 H Creatinine 1.3 Est GFR ( Amer) 47 Est GFR (Non-Af Amer) 39 Random Glucose 87 Calcium 9.1
[2016-09-05] MEDS: Levothyroxine 112 MCG TAB PO SCH (06:10)
[2016-09-05] MEDS: Pantoprazole 40 mg EC Tab PO SCH (06:10)
[2016-09-05] MEDS: Potassium Chloride 20 mEq ER Tab PO SCH ×2 (08:06→17:11)
[2016-09-05] MEDS: Metoprolol Succinate 50 mg XL Tab PO SCH (08:07)
[2016-09-05 08:33] LABS: BASO # 0.04 K/mm3 (0.0-2.0); BASO % 0.6 % (0.0-3.0); CALCIUM 9.3 mg/dL (8.4-10.5); EOS # 0.3 (0.0-0.7); GRAN # 3.12 (1.4-6.5); GRAN % 50.1 % (50.0-68.0); HEMOGLOBIN 10.9 gm/dL (12.0-16.0); LYMPH # 2.3 (1.2-3.4); MEAN CELL VOLUME 93.9 fL (80.0-105.0); MEAN CORPUSCULAR HEMOGLOBIN 30.4 pg (25.0-35.0); MEAN CORPUSCULAR HGB CONC 32.4 g/dl (31.0-37.0); MEAN PLATELET VOLUME 10.7 fl (7.0-11.0); MONO # 0.5 (0.1-0.6); MONO % 8.3 % (1.0-6.0); PLATELET COUNT 165 10^3/uL (120.0-450.0); RBC 3.58 10^6/uL (3.5-6.1); RED CELL DISTRIBUTION WIDTH 16.6 % (11.5-14.5); WHITE BLOOD COUNT 6.2 10^3/ul (4.5-11.0)
[2016-09-05 08:41] LABS: PROTHROMBIN TIME 42.6 Seconds (9.9-11.8)
[2016-09-05 08:59] LABS: INR 3.94 (0.93-1.08)
[2016-09-05] MEDS: Digoxin 125 mcg (0.125 mg) Tab PO SCH (14:14)
[2016-09-05] MEDS: Milrinone 20mg/100ml D5W 100 ML IV PRN (19:15)
[2016-09-06] MEDS: Pantoprazole 40 mg EC Tab PO SCH (05:30)
[2016-09-06] MEDS: Levothyroxine 112 MCG TAB PO SCH (05:30)
--- NOTE | 2016-09-06 07:59 | CP.PCM.PN ---
Subjective - Date & Time of Evaluation Date of Evaluation: 09/06/16 Time of Evaluation: 07:00 - Subjective Subjective: Stable in TCU. She feels better. No CP, SOB, edema V/S noted. PE: Lungs: clear Cor.: S1S2 Abd.: soft Ext.: no edema Neuro.: alert Labs noted 09/05: INR = 3.94. Todays's labs pending. Objective - Vital Signs/Intake and Output Vital Signs (last 24 hours): Temp Pulse Resp BP Pulse Ox 97.5 F L 69 20 127/67 99 09/06/16 06:00 09/06/16 06:00 09/06/16 06:00 09/06/16 06:00 09/06/16 06:00 Intake and Output: 09/06/16 09/06/16 06:59 18:59 Intake Total 100 Balance 100 - Medications Medications: Current Medications Colchicine (Colocrys) 0.6 mg PO DAILY YAA PRN Reason: Protocol Last Admin: 09/05/16 10:01 Dose: 0.6 mg Digoxin (Lanoxin) 0.125 mg PO 1400 YAA PRN Reason: Protocol Last Admin: 09/05/16 14:14 Dose: 0.125 mg Doxycycline Hyclate (Doryx) 100 mg PO BID YAA PRN Reason: Protocol Last Admin: 09/05/16 17:11 Dose: 100 mg Furosemide (Lasix) 40 mg IVP 0600,1400 YAA PRN Reason: Protocol Last Admin: 09/06/16 05:27 Dose: 40 mg Guaifenesin (Robitussin) 100 mg PO Q4H PRN; Protocol PRN Reason: Cough Milrinone Lactate/Dextrose (Primacor 20mg/100ml D5w) 100 mls @ 4.545 mls/hr IV .Q22H1M PRN; Protocol; 0.2 MCG/KG/MIN PRN Reason: TITRATE PER MD ORDER Last Admin: 09/05/16 19:15 Dose: 0.2 mcg/kg/min, 4.545 mls/hr Isosorbide Mononitrate (Imdur) 60 mg PO 0600 YAA PRN Reason: Protocol Last Admin: 09/06/16 05:30 Dose: 60 mg Levothyroxine Sodium (Synthroid) 112 mcg PO 0600 YAA PRN Reason: Protocol Last Admin: 09/06/16 05:30 Dose: 112 mcg Losartan Potassium (Cozaar) 100 mg PO DAILY YAA PRN Reason: Protocol Last Admin: 09/05/16 10:01 Dose: 100 mg Metoprolol Succinate (Toprol Xl) 50 mg PO 0800 YAA PRN Reason: Protocol Last Admin: 09/05/16 08:07 Dose: 50 mg Pantoprazole Sodium (Protonix Ec Tab) 40 mg PO 0600 YAA PRN Reason: Protocol Last Admin: 09/06/16 05:30 Dose: 40 mg Potassium Chloride (K-Dur 20 Meq Er Tab) 20 meq PO 0800,1800 YAA PRN Reason: Protocol Last Admin: 09/05/16 17:11 Dose: 20 meq Warfarin Sodium (Coumadin) 7.5 mg PO 1800 YAA PRN Reason: Protocol - Labs Labs: 09/05/16 08:10 09/05/16 08:10 PT 42.6 Seconds (9.9-11.8) H* 09/05/16 08:10 INR 3.94 (0.93-1.08) H* 09/05/16 08:10 Assessment and Plan - Assessment and Plan (Free Text) Assessment: Dyspnea, edema CHF/Class IV CMP/severe LVD/home milrinone infusion Severe MR, TR and PH CVA Gout Hypothyroidism S/P GB, Back and hernia surgeries Plan: Await AM labs. IV > PO Lasix Warfarin by INR's OOB/PT/Rehab efforts
[2016-09-06] MEDS: Potassium Chloride 20 mEq ER Tab PO SCH ×2 (09:00→18:22)
[2016-09-06] MEDS: Metoprolol Succinate 50 mg XL Tab PO SCH (11:29)
[2016-09-06] MEDS: Digoxin 125 mcg (0.125 mg) Tab PO SCH (13:52)
[2016-09-06 16:00] LABS: HEMOGLOBIN 11.4 gm/dL (12.0-16.0); MEAN CELL VOLUME 92.5 fL (80.0-105.0); MEAN CORPUSCULAR HEMOGLOBIN 30.4 pg (25.0-35.0); MEAN CORPUSCULAR HGB CONC 32.9 g/dl (31.0-37.0); MEAN PLATELET VOLUME 10.6 fl (7.0-11.0); RBC 3.75 10^6/uL (3.5-6.1); RED CELL DISTRIBUTION WIDTH 16.2 % (11.5-14.5); WHITE BLOOD COUNT 6.8 10^3/ul (4.5-11.0)
--- NOTE | 2016-09-06 16:02 | CP.PCM.PN ---
<BRITNI DAMON - Last Filed: 09/06/16 17:43> Subjective - Date & Time of Evaluation Date of Evaluation: 09/06/16 Time of Evaluation: 10:25 - Subjective Subjective: Medicine Progress Note: Pt was seen and assessed at bedside. Pt stable in TCU with no new complaints. Pt states that her dyspnea has improved over the course of hospital stay. Pt denied headache, dizziness, fever, dyspnea, chest pain, nausea/vomiting, diarrhea or abdominal pain Objective - Vital Signs/Intake and Output Vital Signs (last 24 hours): Temp Pulse Resp BP Pulse Ox 97.6 F 69 12 121/63 94 L 09/06/16 10:46 09/06/16 11:29 09/06/16 10:46 09/06/16 11:29 09/06/16 10:46 Intake and Output: 09/06/16 09/06/16 06:59 18:59 Intake Total 100 Balance 100 - Medications Medications: Current Medications Colchicine (Colocrys) 0.6 mg PO DAILY [facility] PRN Reason: Protocol Last Admin: 09/06/16 11:30 Dose: 0.6 mg Digoxin (Lanoxin) 0.125 mg PO 1400 [facility] PRN Reason: Protocol Last Admin: 09/06/16 13:52 Dose: 0.125 mg Doxycycline Hyclate (Doryx) 100 mg PO BID [facility] PRN Reason: Protocol Last Admin: 09/06/16 11:00 Dose: 100 mg Furosemide (Lasix) 40 mg PO DAILY [facility] Last Admin: 09/06/16 11:00 Dose: 40 mg Guaifenesin (Robitussin) 100 mg PO Q4H PRN; Protocol PRN Reason: Cough Milrinone Lactate/Dextrose (Primacor 20mg/100ml D5w) 100 mls @ 4.545 mls/hr IV .Q22H1M PRN; Protocol; 0.2 MCG/KG/MIN PRN Reason: TITRATE PER MD ORDER Last Admin: 09/05/16 19:15 Dose: 0.2 mcg/kg/min, 4.545 mls/hr Isosorbide Mononitrate (Imdur) 60 mg PO 0600 [facility] PRN Reason: Protocol Last Admin: 09/06/16 05:30 Dose: 60 mg Levothyroxine Sodium (Synthroid) 112 mcg PO 0600 [facility] PRN Reason: Protocol Last Admin: 09/06/16 05:30 Dose: 112 mcg Losartan Potassium (Cozaar) 100 mg PO DAILY [facility] PRN Reason: Protocol Last Admin: 09/06/16 11:00 Dose: 100 mg Metoprolol Succinate (Toprol Xl) 50 mg PO 0800 [facility] PRN Reason: Protocol Last Admin: 09/06/16 11:29 Dose: 50 mg Pantoprazole Sodium (Protonix Ec Tab) 40 mg PO 0600 [facility] PRN Reason: Protocol Last Admin: 09/06/16 05:30 Dose: 40 mg Potassium Chloride (K-Dur 20 Meq Er Tab) 20 meq PO 0800,1800 [facility] PRN Reason: Protocol Last Admin: 09/06/16 09:00 Dose: 20 meq Warfarin Sodium (Coumadin) 7.5 mg PO 1800 [facility] PRN Reason: Protocol - Labs Labs: 09/05/16 08:10 09/05/16 08:10 PT 42.6 Seconds (9.9-11.8) H* 09/05/16 08:10 INR 3.94 (0.93-1.08) H* 09/05/16 08:10 - Head Exam Head Exam: ATRAUMATIC, NORMAL INSPECTION, NORMOCEPHALIC - Eye Exam Eye Exam: EOMI, Normal appearance - ENT Exam ENT Exam: Mucous Membranes Moist, Normal Exam - Neck Exam Neck Exam: Full ROM - Respiratory Exam Respiratory Exam: Clear to Ausculation Bilateral, NORMAL BREATHING PATTERN. absent: Rales, Wheezes, Respiratory Distress - Cardiovascular Exam Cardiovascular Exam: REGULAR RHYTHM, +S1, +S2. absent: Murmur - GI/Abdominal Exam GI & Abdominal Exam: absent: Distended - Extremities Exam Extremities Exam: absent: Calf Tenderness, Pedal Edema - Neurological Exam Neurological Exam: Alert, Awake, CN II-XII Intact, Oriented x3 - Psychiatric Exam Psychiatric exam: Normal Affect, Normal Mood - Skin Skin Exam: Normal Color Assessment and Plan - Assessment and Plan (Free Text) Assessment: 86 yo female with a history of systolic heart failure and afib who was admitted for dyspnea 1. CHF -Pt transitioned from IV to PO Lasix -Continue Cozaar, Toprol XL and Milrinone injections -CMP qd ordered to assess electrolytes -euvomlemic on exam -Continue PT therapy 2. Afib -hold coumadin for now based on supratherapeutic INR of 3.27 -INR scheduled qd -will await cardiology consult for continuation of amiodarone 3. GI ppx -protonix Case and plan was seen reviewed and discussed in detail with Dr Man. <Marleny Man - Last Filed: 09/07/16 08:06> Objective - Vital Signs/Intake and Output Vital Signs (last 24 hours): Temp Pulse Resp BP Pulse Ox 97.6 F 76 12 112/60 94 L 09/06/16 10:46 09/06/16 18:16 09/06/16 10:46 09/06/16 18:16 09/06/16 10:46 - Medications Medications: Current Medications Colchicine (Colocrys) 0.6 mg PO DAILY [facility] PRN Reason: Protocol Last Admin: 09/06/16 11:30 Dose: 0.6 mg Digoxin (Lanoxin) 0.125 mg PO 1400 [facility] PRN Reason: Protocol Last Admin: 09/06/16 13:52 Dose: 0.125 mg Doxycycline Hyclate (Doryx) 100 mg PO BID [facility] PRN Reason: Protocol Last Admin: 09/06/16 18:22 Dose: 100 mg Furosemide (Lasix) 40 mg PO DAILY [facility] Last Admin: 09/06/16 11:00 Dose: 40 mg Guaifenesin (Robitussin) 100 mg PO Q4H PRN; Protocol PRN Reason: Cough Milrinone Lactate/Dextrose (Primacor 20mg/100ml D5w) 100 mls @ 4.545 mls/hr IV .Q22H1M PRN; Protocol; 0.2 MCG/KG/MIN PRN Reason: TITRATE PER MD ORDER Last Admin: 09/06/16 18:16 Dose: 0.2 mcg/kg/min, 4.545 mls/hr Isosorbide Mononitrate (Imdur) 60 mg PO 0600 [facility] PRN Reason: Protocol Last Admin: 09/07/16 05:30 Dose: 60 mg Levothyroxine Sodium (Synthroid) 112 mcg PO 0600 [facility] PRN Reason: Protocol Last Admin: 09/07/16 05:30 Dose: 112 mcg Losartan Potassium (Cozaar) 100 mg PO DAILY [facility] PRN Reason: Protocol Last Admin: 09/06/16 11:00 Dose: 100 mg Metoprolol Succinate (Toprol Xl) 50 mg PO 0800 [facility] PRN Reason: Protocol Last Admin: 09/06/16 11:29 Dose: 50 mg Pantoprazole Sodium (Protonix Ec Tab) 40 mg PO 0600 [facility] PRN Reason: Protocol Last Admin: 09/07/16 05:30 Dose: 40 mg Potassium Chloride (K-Dur 20 Meq Er Tab) 20 meq PO 0800,1800 [facility] PRN Reason: Protocol Last Admin: 09/06/16 18:22 Dose: 20 meq Warfarin Sodium (Coumadin) 7.5 mg PO 1800 [facility] PRN Reason: Protocol - Labs Labs: 09/07/16 05:30 09/07/16 05:30 PT 29.1 Seconds (9.9-11.8) H 09/07/16 05:30 INR 2.69 (0.93-1.08) H 09/07/16 05:30 Attending/Attestation - Attestation I have personally seen and examined this patient.: Yes I have fully participated in the care of the patient.: Yes I have reviewed all pertinent clinical information, including history, physical exam and plan: Yes Notes (Text): 09/06/16 86 year old female with past medical history of cardiomyopathy, systolic CHF and chronic afib who presented with CHF exacerbation. Her symptoms improved with iv lasix and milrinone and she was transferred to TCU for rehab therapy. Her lasix was switched to po and decreased to once daily. She is on cozaar and toprol as well. Cardiology is following the patient. Creatinine today is mildly elevated at 1.5, probably from diuretics as above. Will monitor for now , if increasing may need to hold cozaar. Her coumadin is on hold due to supratherapeutic INR. Today's level is 3.27. Her amiodarone is currently on hold; will follow up with cardiology when to resume. Marleny Man MD Hospitalist.
[2016-09-06 16:15] LABS: CALCIUM 9.3 mg/dL (8.4-10.5)
[2016-09-06 16:19] LABS: INR 3.27 (0.93-1.08); PROTHROMBIN TIME 35.3 Seconds (9.9-11.8)
[2016-09-06] MEDS: Milrinone 20mg/100ml D5W 100 ML IV PRN (18:16)
[2016-09-07] MEDS: Levothyroxine 112 MCG TAB PO SCH (05:30)
[2016-09-07] MEDS: Pantoprazole 40 mg EC Tab PO SCH (05:30)
[2016-09-07 06:06] LABS: BASO # 0.06 K/mm3 (0.0-2.0); EOS # 0.2 (0.0-0.7); EOS % 3.8 % (1.5-5.0); GRAN % 55.7 % (50.0-68.0); HEMOGLOBIN 11.4 gm/dL (12.0-16.0); LYMPH % 31.1 % (22.0-35.0); MEAN CELL VOLUME 92.5 fL (80.0-105.0); MEAN CORPUSCULAR HEMOGLOBIN 30.7 pg (25.0-35.0); MEAN CORPUSCULAR HGB CONC 33.2 g/dl (31.0-37.0); MEAN PLATELET VOLUME 10.8 fl (7.0-11.0); MONO # 0.5 (0.1-0.6); MONO % 8.4 % (1.0-6.0); PLATELET COUNT 176 10^3/uL (120.0-450.0); RBC 3.71 10^6/uL (3.5-6.1); RED CELL DISTRIBUTION WIDTH 16.3 % (11.5-14.5); WHITE BLOOD COUNT 6.3 10^3/ul (4.5-11.0)
[2016-09-07 06:08] LABS: INR 2.69 (0.93-1.08); PROTHROMBIN TIME 29.1 Seconds (9.9-11.8)
[2016-09-07 06:21] LABS: ALB/GLOB RATIO 0.9 (1.1-1.8); ALBUMIN 3.7 g/dL (3.0-4.8); CALCIUM 9.4 mg/dL (8.4-10.5)
[2016-09-07] MEDS: Potassium Chloride 20 mEq ER Tab PO SCH ×2 (08:00→17:38)
[2016-09-07] MEDS: Metoprolol Succinate 50 mg XL Tab PO SCH (08:12)
--- NOTE | 2016-09-07 10:00 | CP.PCM.PN ---
Subjective - Date & Time of Evaluation Date of Evaluation: 09/07/16 Time of Evaluation: 09:15 - Subjective Subjective: . Seen for followup on transitional care unit. Feeling a little better. Edema is improved. Continues to participate in physical therapy. denies any chest pain. Exertional dyspnea about the same. Objective - Vital Signs/Intake and Output Vital Signs (last 24 hours): Temp Pulse Resp BP Pulse Ox 97.6 F 69 12 116/64 94 L 09/06/16 10:46 09/07/16 08:12 09/06/16 10:46 09/07/16 08:12 09/06/16 10:46 - Medications Medications: Current Medications Colchicine (Colocrys) 0.6 mg PO DAILY [facility] PRN Reason: Protocol Last Admin: 09/06/16 11:30 Dose: 0.6 mg Digoxin (Lanoxin) 0.125 mg PO 1400 [facility] PRN Reason: Protocol Last Admin: 09/06/16 13:52 Dose: 0.125 mg Doxycycline Hyclate (Doryx) 100 mg PO BID [facility] PRN Reason: Protocol Last Admin: 09/06/16 18:22 Dose: 100 mg Furosemide (Lasix) 40 mg PO DAILY [facility] Last Admin: 09/06/16 11:00 Dose: 40 mg Guaifenesin (Robitussin) 100 mg PO Q4H PRN; Protocol PRN Reason: Cough Milrinone Lactate/Dextrose (Primacor 20mg/100ml D5w) 100 mls @ 4.545 mls/hr IV .Q22H1M PRN; Protocol; 0.2 MCG/KG/MIN PRN Reason: TITRATE PER MD ORDER Last Admin: 09/06/16 18:16 Dose: 0.2 mcg/kg/min, 4.545 mls/hr Isosorbide Mononitrate (Imdur) 60 mg PO 0600 [facility] PRN Reason: Protocol Last Admin: 09/07/16 05:30 Dose: 60 mg Levothyroxine Sodium (Synthroid) 112 mcg PO 0600 [facility] PRN Reason: Protocol Last Admin: 09/07/16 05:30 Dose: 112 mcg Losartan Potassium (Cozaar) 100 mg PO DAILY [facility] PRN Reason: Protocol Last Admin: 09/06/16 11:00 Dose: 100 mg Metoprolol Succinate (Toprol Xl) 50 mg PO 0800 [facility] PRN Reason: Protocol Last Admin: 09/07/16 08:12 Dose: 50 mg Pantoprazole Sodium (Protonix Ec Tab) 40 mg PO 0600 [facility] PRN Reason: Protocol Last Admin: 09/07/16 05:30 Dose: 40 mg Potassium Chloride (K-Dur 20 Meq Er Tab) 20 meq PO 0800,1800 [facility] PRN Reason: Protocol Last Admin: 09/06/16 18:22 Dose: 20 meq Warfarin Sodium (Coumadin) 7.5 mg PO 1800 [facility] PRN Reason: Protocol - Labs Labs: 09/07/16 05:30 09/07/16 05:30 PT 29.1 Seconds (9.9-11.8) H 09/07/16 05:30 INR 2.69 (0.93-1.08) H 09/07/16 05:30 - Constitutional Appears: Well - Neck Exam Neck Exam: Full ROM, Normal Inspection. absent: Lymphadenopathy - Respiratory Exam Respiratory Exam: Clear to Ausculation Bilateral - Cardiovascular Exam Cardiovascular Exam: absent: Murmur Additional comments: Soft heart tones. Soft systolic murmur at the left sternal border and apex. - GI/Abdominal Exam GI & Abdominal Exam: Soft, Normal Bowel Sounds. absent: Tenderness Assessment and Plan - Assessment and Plan (Free Text) Assessment: . Impression: * Severe LV dysfunction * Dilated cardiomyopathy * Mitral and tricuspid regurgitation. * History of ventricular tachycardia, status post ICD implant * all no known dependency. Plan: . Recommendations: * Continue current cardiac medications. * Continue milrinone infusion. * Resume amiodarone. * Continue exercise efforts as able.
[2016-09-07] MEDS: Digoxin 125 mcg (0.125 mg) Tab PO SCH (14:34)
[2016-09-08] MEDS: Levothyroxine 112 MCG TAB PO SCH (05:55)
[2016-09-08] MEDS: Pantoprazole 40 mg EC Tab PO SCH (05:55)
[2016-09-08 06:27] LABS: BASO # 0.04 K/mm3 (0.0-2.0); BASO % 0.6 % (0.0-3.0); EOS # 0.3 (0.0-0.7); EOS % 4.2 % (1.5-5.0); GRAN # 3.44 (1.4-6.5); GRAN % 55.4 % (50.0-68.0); HEMOGLOBIN 10.9 gm/dL (12.0-16.0); LYMPH # 1.9 (1.2-3.4); LYMPH % 30.3 % (22.0-35.0); MEAN CELL VOLUME 92.1 fL (80.0-105.0); MEAN CORPUSCULAR HEMOGLOBIN 29.7 pg (25.0-35.0); MEAN CORPUSCULAR HGB CONC 32.2 g/dl (31.0-37.0); MEAN PLATELET VOLUME 10.9 fl (7.0-11.0); MONO # 0.6 (0.1-0.6); MONO % 9.5 % (1.0-6.0); PLATELET COUNT 160 10^3/uL (120.0-450.0); RBC 3.67 10^6/uL (3.5-6.1); RED CELL DISTRIBUTION WIDTH 16.4 % (11.5-14.5); WHITE BLOOD COUNT 6.2 10^3/ul (4.5-11.0)
[2016-09-08 06:36] LABS: INR 2.31 (0.93-1.08); PROTHROMBIN TIME 24.9 Seconds (9.9-11.8)
[2016-09-08 06:39] LABS: ALBUMIN 3.5 g/dL (3.0-4.8); CALCIUM 9.3 mg/dL (8.4-10.5)
[2016-09-08] MEDS: Potassium Chloride 20 mEq ER Tab PO SCH ×2 (08:39→18:26)
[2016-09-08] MEDS: Metoprolol Succinate 50 mg XL Tab PO SCH (08:39)
--- NOTE | 2016-09-08 10:11 | CP.PCM.PN ---
Subjective - Date & Time of Evaluation Date of Evaluation: 09/08/16 Time of Evaluation: 08:50 - Subjective Subjective: Seen for follow up on transitional care unit. Feeling better. Does notice some mild ankle edema. Refusing amiodarone. States that she is extremely concerned about potential side effects. Concerned that she will lose her vision. Objective - Vital Signs/Intake and Output Vital Signs (last 24 hours): Temp Pulse Resp BP Pulse Ox 97.5 F L 69 18 120/64 99 09/08/16 06:00 09/08/16 08:39 09/08/16 06:00 09/08/16 08:39 09/08/16 06:00 Intake and Output: 09/08/16 09/08/16 06:59 18:59 Intake Total 480 Balance 480 - Medications Medications: Current Medications Amiodarone HCl (Cordarone) 200 mg PO BID [facility] Last Admin: 09/07/16 17:38 Dose: 200 mg Colchicine (Colocrys) 0.6 mg PO DAILY [facility] PRN Reason: Protocol Last Admin: 09/07/16 11:35 Dose: 0.6 mg Digoxin (Lanoxin) 0.125 mg PO 1400 [facility] PRN Reason: Protocol Last Admin: 09/07/16 14:34 Dose: 0.125 mg Doxycycline Hyclate (Doryx) 100 mg PO BID [facility] PRN Reason: Protocol Last Admin: 09/07/16 17:39 Dose: Not Given Furosemide (Lasix) 40 mg PO DAILY [facility] Last Admin: 09/07/16 11:36 Dose: 40 mg Guaifenesin (Robitussin) 100 mg PO Q4H PRN; Protocol PRN Reason: Cough Milrinone Lactate/Dextrose (Primacor 20mg/100ml D5w) 100 mls @ 4.545 mls/hr IV .Q22H1M PRN; Protocol; 0.2 MCG/KG/MIN PRN Reason: TITRATE PER MD ORDER Last Admin: 09/06/16 18:16 Dose: 0.2 mcg/kg/min, 4.545 mls/hr Isosorbide Mononitrate (Imdur) 60 mg PO 0600 [facility] PRN Reason: Protocol Last Admin: 09/08/16 05:54 Dose: 60 mg Levothyroxine Sodium (Synthroid) 112 mcg PO 0600 [facility] PRN Reason: Protocol Last Admin: 09/08/16 05:55 Dose: 112 mcg Losartan Potassium (Cozaar) 100 mg PO DAILY [facility] PRN Reason: Protocol Last Admin: 09/07/16 11:35 Dose: 100 mg Metoprolol Succinate (Toprol Xl) 50 mg PO 0800 [facility] PRN Reason: Protocol Last Admin: 09/08/16 08:39 Dose: 50 mg Pantoprazole Sodium (Protonix Ec Tab) 40 mg PO 0600 [facility] PRN Reason: Protocol Last Admin: 09/08/16 05:55 Dose: 40 mg Potassium Chloride (K-Dur 20 Meq Er Tab) 20 meq PO 0800,1800 [facility] PRN Reason: Protocol Last Admin: 09/08/16 08:39 Dose: 20 meq Warfarin Sodium (Coumadin) 4 mg PO 1800 [facility] PRN Reason: Protocol Last Admin: 09/07/16 17:39 Dose: 4 mg - Labs Labs: 09/08/16 05:50 09/08/16 05:50 PT 24.9 Seconds (9.9-11.8) H 09/08/16 05:50 INR 2.31 (0.93-1.08) H 09/08/16 05:50 - Constitutional Appears: No Acute Distress - Neck Exam Neck Exam: Full ROM, Normal Inspection. absent: Lymphadenopathy - Respiratory Exam Additional comments: bilateral rhonchi. - Cardiovascular Exam Additional comments: soft tones. Systolic murmur present at the lateral border and apex. Soft S3 present. - GI/Abdominal Exam GI & Abdominal Exam: Soft, Normal Bowel Sounds. absent: Tenderness - Extremities Exam Additional comments: trace to 1+ bilateral lower extremity edema. - Neurological Exam Neurological Exam: Alert, Oriented x3 Assessment and Plan - Assessment and Plan (Free Text) Assessment: Impression: * Severe congestive cardiomyopathy with recent acute on chronic congestive heart failure, predominant systolic. * History of ventricular tachycardia, status post ICD implant. * Chronic atrial fibrillation. * Mitral and tricuspid regurgitation. * Severely deconditioned. Plan: Recommendations: * Had discussion regarding potential benefit of amiodarone given prior ventricle tachycardia. Explained that visual problems at this point are not likely. * Discussed risks and benefits oftherapy but she continues to refuse amiodarone use. * Continue rest of medications unchanged. * Add compression stockings to combat peripheral edema. * Increase activities as tolerated.
[2016-09-08] MEDS: Digoxin 125 mcg (0.125 mg) Tab PO SCH (13:22)
--- NOTE | 2016-09-08 16:40 | CP.PCM.PN ---
<BRITNI DAMON - Last Filed: 09/08/16 16:48> Subjective - Date & Time of Evaluation Date of Evaluation: 09/08/16 Time of Evaluation: 10:15 - Subjective Subjective: Medicine Progress Note: Pt seen and assessed at bedside in TCU. Pt has no complaints at this time. States that previous nausea has resolved. Pt denies SOB, chest pain, fever, headache, visual changes, nausea/vomiting, and abdominal pain. Objective - Vital Signs/Intake and Output Vital Signs (last 24 hours): Temp Pulse Resp BP Pulse Ox 98.3 F 18 L 70 H 176/88 H 95 09/08/16 16:00 09/08/16 16:00 09/08/16 16:00 09/08/16 16:00 09/08/16 10:00 Intake and Output: 09/08/16 09/08/16 06:59 18:59 Intake Total 480 Balance 480 - Medications Medications: Current Medications Colchicine (Colocrys) 0.6 mg PO DAILY [facility] PRN Reason: Protocol Last Admin: 09/08/16 10:26 Dose: 0.6 mg Digoxin (Lanoxin) 0.125 mg PO 1400 [facility] PRN Reason: Protocol Last Admin: 09/08/16 13:22 Dose: 0.125 mg Doxycycline Hyclate (Doryx) 100 mg PO BID [facility] PRN Reason: Protocol Last Admin: 09/08/16 13:22 Dose: Not Given Furosemide (Lasix) 40 mg PO DAILY [facility] Last Admin: 09/08/16 10:26 Dose: 40 mg Guaifenesin (Robitussin) 100 mg PO Q4H PRN; Protocol PRN Reason: Cough Milrinone Lactate/Dextrose (Primacor 20mg/100ml D5w) 100 mls @ 4.545 mls/hr IV .Q22H1M PRN; Protocol; 0.2 MCG/KG/MIN PRN Reason: TITRATE PER MD ORDER Last Admin: 09/06/16 18:16 Dose: 0.2 mcg/kg/min, 4.545 mls/hr Isosorbide Mononitrate (Imdur) 60 mg PO 0600 [facility] PRN Reason: Protocol Last Admin: 09/08/16 05:54 Dose: 60 mg Levothyroxine Sodium (Synthroid) 112 mcg PO 0600 [facility] PRN Reason: Protocol Last Admin: 09/08/16 05:55 Dose: 112 mcg Losartan Potassium (Cozaar) 100 mg PO DAILY [facility] PRN Reason: Protocol Last Admin: 09/08/16 10:26 Dose: 100 mg Metoprolol Succinate (Toprol Xl) 50 mg PO 0800 [facility] PRN Reason: Protocol Last Admin: 09/08/16 08:39 Dose: 50 mg Pantoprazole Sodium (Protonix Ec Tab) 40 mg PO 0600 [facility] PRN Reason: Protocol Last Admin: 09/08/16 05:55 Dose: 40 mg Potassium Chloride (K-Dur 20 Meq Er Tab) 20 meq PO 0800,1800 [facility] PRN Reason: Protocol Last Admin: 09/08/16 08:39 Dose: 20 meq Warfarin Sodium (Coumadin) 4 mg PO 1800 [facility] PRN Reason: Protocol Last Admin: 09/07/16 17:39 Dose: 4 mg - Labs Labs: 09/08/16 05:50 09/08/16 05:50 PT 24.9 Seconds (9.9-11.8) H 09/08/16 05:50 INR 2.31 (0.93-1.08) H 09/08/16 05:50 - Constitutional Appears: No Acute Distress - Head Exam Head Exam: ATRAUMATIC, NORMAL INSPECTION - Eye Exam Eye Exam: EOMI, Normal appearance - ENT Exam ENT Exam: Mucous Membranes Moist, Normal Exam - Neck Exam Neck Exam: Full ROM - Respiratory Exam Respiratory Exam: Clear to Ausculation Bilateral, NORMAL BREATHING PATTERN. absent: Rales, Rhonchi, Wheezes, Respiratory Distress - Cardiovascular Exam Cardiovascular Exam: REGULAR RHYTHM, +S1, +S2. absent: Murmur - GI/Abdominal Exam GI & Abdominal Exam: absent: Distended, Tenderness - Extremities Exam Extremities Exam: absent: Calf Tenderness, Pedal Edema - Neurological Exam Neurological Exam: Alert, Awake, Normal Gait - Psychiatric Exam Psychiatric exam: Normal Affect, Normal Mood - Skin Skin Exam: Dry, Intact, Normal Color, Warm Assessment and Plan - Assessment and Plan (Free Text) Assessment: 86 yo female with a history of systolic heart failure and afib who was admitted for dyspnea 1. CHF -Pt currently tolerating PO Lasix with stable creatinine -Continue Cozaar, Toprol XL and Milrinone injections -CMP qd ordered to assess electrolytes -plan to work with PT for 2-3 more days -will consult with oil field caser for length of stay 2. Afib -Comadin 4 PO started -INR in therapeutic range at 2.31 today -INR scheduled qd -still refuses amiodarone after cardio consult 3. GI ppx -protonix Case and plan was seen reviewed and discussed in detail with Dr Man. <Marleny Man - Last Filed: 09/08/16 17:32> Objective - Vital Signs/Intake and Output Vital Signs (last 24 hours): Temp Pulse Resp BP Pulse Ox 98.3 F 18 L 70 H 176/88 H 95 09/08/16 16:00 09/08/16 16:00 09/08/16 16:00 09/08/16 16:00 09/08/16 10:00 Intake and Output: 09/08/16 09/08/16 06:59 18:59 Intake Total 480 Balance 480 - Medications Medications: Current Medications Colchicine (Colocrys) 0.6 mg PO DAILY [facility] PRN Reason: Protocol Last Admin: 09/08/16 10:26 Dose: 0.6 mg Digoxin (Lanoxin) 0.125 mg PO 1400 [facility] PRN Reason: Protocol Last Admin: 09/08/16 13:22 Dose: 0.125 mg Doxycycline Hyclate (Doryx) 100 mg PO BID [facility] PRN Reason: Protocol Last Admin: 09/08/16 13:22 Dose: Not Given Furosemide (Lasix) 40 mg PO DAILY [facility] Last Admin: 09/08/16 10:26 Dose: 40 mg Guaifenesin (Robitussin) 100 mg PO Q4H PRN; Protocol PRN Reason: Cough Milrinone Lactate/Dextrose (Primacor 20mg/100ml D5w) 100 mls @ 4.545 mls/hr IV .Q22H1M PRN; Protocol; 0.2 MCG/KG/MIN PRN Reason: TITRATE PER MD ORDER Last Admin: 09/06/16 18:16 Dose: 0.2 mcg/kg/min, 4.545 mls/hr Isosorbide Mononitrate (Imdur) 60 mg PO 0600 [facility] PRN Reason: Protocol Last Admin: 09/08/16 05:54 Dose: 60 mg Levothyroxine Sodium (Synthroid) 112 mcg PO 0600 [facility] PRN Reason: Protocol Last Admin: 09/08/16 05:55 Dose: 112 mcg Losartan Potassium (Cozaar) 100 mg PO DAILY [facility] PRN Reason: Protocol Last Admin: 09/08/16 10:26 Dose: 100 mg Metoprolol Succinate (Toprol Xl) 50 mg PO 0800 [facility] PRN Reason: Protocol Last Admin: 09/08/16 08:39 Dose: 50 mg Pantoprazole Sodium (Protonix Ec Tab) 40 mg PO 0600 [facility] PRN Reason: Protocol Last Admin: 09/08/16 05:55 Dose: 40 mg Potassium Chloride (K-Dur 20 Meq Er Tab) 20 meq PO 0800,1800 [facility] PRN Reason: Protocol Last Admin: 09/08/16 08:39 Dose: 20 meq Warfarin Sodium (Coumadin) 4 mg PO 1800 [facility] PRN Reason: Protocol Last Admin: 09/07/16 17:39 Dose: 4 mg - Labs Labs: 09/08/16 05:50 09/08/16 05:50 PT 24.9 Seconds (9.9-11.8) H 09/08/16 05:50 INR 2.31 (0.93-1.08) H 09/08/16 05:50 Attending/Attestation - Attestation I have personally seen and examined this patient.: Yes I have fully participated in the care of the patient.: Yes I have reviewed all pertinent clinical information, including history, physical exam and plan: Yes Notes (Text): 09/08/16 17:28 86 year old female with past medical history of cardiomyopathy, systolic CHF and chronic afib who presented with CHF exacerbation. Her symptoms improved with iv lasix and milrinone and she was transferred to TCU for rehab therapy. She is currently on po lasix, cozaar, toprol and milrinone. Cardiology is following the patient. Amiodarone was resumed by cardiology which the patient is currently refusing. Her coumadin was initially held due to supratherapeutic INR which has come down. INR today is 2.31 and she is on 4 mg of coumadin. Continue with physical therapy. She is currently out of bed to chair. Daughter is at bedside and questions were answered. Marleny Man MD Hospitalist.
[2016-09-09] MEDS: Levothyroxine 112 MCG TAB PO SCH (05:30)
[2016-09-09] MEDS: Pantoprazole 40 mg EC Tab PO SCH (05:31)
[2016-09-09 05:49] LABS: BASO # 0.04 K/mm3 (0.0-2.0); BASO % 0.7 % (0.0-3.0); EOS # 0.2 (0.0-0.7); EOS % 3.3 % (1.5-5.0); GRAN # 3.44 (1.4-6.5); GRAN % 55.9 % (50.0-68.0); HEMOGLOBIN 10.9 gm/dL (12.0-16.0); LYMPH # 1.8 (1.2-3.4); LYMPH % 29.8 % (22.0-35.0); MEAN CELL VOLUME 91.7 fL (80.0-105.0); MEAN CORPUSCULAR HEMOGLOBIN 30.1 pg (25.0-35.0); MEAN CORPUSCULAR HGB CONC 32.8 g/dl (31.0-37.0); MEAN PLATELET VOLUME 10.4 fl (7.0-11.0); MONO # 0.6 (0.1-0.6); MONO % 10.3 % (1.0-6.0); PLATELET COUNT 155 10^3/uL (120.0-450.0); RBC 3.62 10^6/uL (3.5-6.1); RED CELL DISTRIBUTION WIDTH 16.4 % (11.5-14.5); WHITE BLOOD COUNT 6.1 10^3/ul (4.5-11.0)
[2016-09-09 06:00] LABS: INR 2.38 (0.93-1.08); PROTHROMBIN TIME 25.7 Seconds (9.9-11.8)
[2016-09-09 06:14] LABS: ALB/GLOB RATIO 0.9 (1.1-1.8); ALBUMIN 3.4 g/dL (3.0-4.8); CALCIUM 9.1 mg/dL (8.4-10.5)
[2016-09-09] MEDS: Potassium Chloride 20 mEq ER Tab PO SCH ×3 (08:36→17:55)
[2016-09-09] MEDS: Metoprolol Succinate 50 mg XL Tab PO SCH (08:38)
--- NOTE | 2016-09-09 08:38 | CP.PCM.PN ---
Subjective - Date & Time of Evaluation Date of Evaluation: 09/09/16 Time of Evaluation: 07:00 - Subjective Subjective: Stable in TCU. She feels better. No CP, SOB, edema V/S noted. PE: Lungs: clear Cor.: S1S2 Abd.: soft Ext.: no edema Neuro.: alert Labs noted : INR= 2.38, Cr.= 1.5, K+= 4.4 Objective - Vital Signs/Intake and Output Vital Signs (last 24 hours): Temp Pulse Resp BP Pulse Ox 98.3 F 18 L 70 H 176/88 H 95 09/08/16 16:00 09/08/16 16:00 09/08/16 16:00 09/08/16 16:00 09/08/16 10:00 Intake and Output: 09/09/16 09/09/16 06:59 18:59 Intake Total 420 Balance 420 - Medications Medications: Current Medications Colchicine (Colocrys) 0.6 mg PO DAILY [facility] PRN Reason: Protocol Last Admin: 09/08/16 10:26 Dose: 0.6 mg Digoxin (Lanoxin) 0.125 mg PO 1400 [facility] PRN Reason: Protocol Last Admin: 09/08/16 13:22 Dose: 0.125 mg Doxycycline Hyclate (Doryx) 100 mg PO BID [facility] PRN Reason: Protocol Last Admin: 09/08/16 18:26 Dose: Not Given Furosemide (Lasix) 40 mg PO DAILY [facility] Last Admin: 09/08/16 10:26 Dose: 40 mg Guaifenesin (Robitussin) 100 mg PO Q4H PRN; Protocol PRN Reason: Cough Milrinone Lactate/Dextrose (Primacor 20mg/100ml D5w) 100 mls @ 4.545 mls/hr IV .Q22H1M PRN; Protocol; 0.2 MCG/KG/MIN PRN Reason: TITRATE PER MD ORDER Last Admin: 09/06/16 18:16 Dose: 0.2 mcg/kg/min, 4.545 mls/hr Isosorbide Mononitrate (Imdur) 60 mg PO 0600 [facility] PRN Reason: Protocol Last Admin: 09/09/16 05:31 Dose: 60 mg Levothyroxine Sodium (Synthroid) 112 mcg PO 0600 [facility] PRN Reason: Protocol Last Admin: 09/09/16 05:30 Dose: 112 mcg Losartan Potassium (Cozaar) 100 mg PO DAILY [facility] PRN Reason: Protocol Last Admin: 09/08/16 10:26 Dose: 100 mg Metoprolol Succinate (Toprol Xl) 50 mg PO 0800 [facility] PRN Reason: Protocol Last Admin: 09/08/16 08:39 Dose: 50 mg Pantoprazole Sodium (Protonix Ec Tab) 40 mg PO 0600 [facility] PRN Reason: Protocol Last Admin: 09/09/16 05:31 Dose: 40 mg Potassium Chloride (K-Dur 20 Meq Er Tab) 20 meq PO 0800,1800 [facility] PRN Reason: Protocol Last Admin: 09/08/16 18:26 Dose: 20 meq Warfarin Sodium (Coumadin) 4 mg PO 1800 [facility] PRN Reason: Protocol Last Admin: 09/08/16 18:25 Dose: 4 mg - Labs Labs: 09/09/16 05:35 09/09/16 05:35 PT 25.7 Seconds (9.9-11.8) H 09/09/16 05:35 INR 2.38 (0.93-1.08) H 09/09/16 05:35 Assessment and Plan - Assessment and Plan (Free Text) Assessment: Dyspnea, edema 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 for now. Will continue to discuss with her.
[2016-09-09] MEDS: Digoxin 125 mcg (0.125 mg) Tab PO SCH ×2 (14:26→14:28)
[2016-09-09 16:54] VITALS: RESP 18
[2016-09-10 06:22] VITALS: BP 129/58; PULSE 70; TEMP 97.8; O2SAT 97
[2016-09-10] MEDS: Pantoprazole 40 mg EC Tab PO SCH (06:57)
[2016-09-10] MEDS: Levothyroxine 112 MCG TAB PO SCH (06:57)
[2016-09-10 07:35] LABS: INR 2.62 (0.93-1.08); PROTHROMBIN TIME 28.3 Seconds (9.9-11.8)
[2016-09-10] MEDS: Metoprolol Succinate 50 mg XL Tab PO SCH (08:05)
[2016-09-10] MEDS: Potassium Chloride 20 mEq ER Tab PO SCH (08:47)
--- NOTE | 2016-09-10 09:01 | CP.PCM.PN ---
Subjective - Date & Time of Evaluation Date of Evaluation: 09/10/16 Time of Evaluation: 07:00 - Subjective Subjective: Stable in TCU. Ambulated yesterday. Barnhart well until last night when she developed low abd. pain. She could not sleep. Still mild pain this AM. Had BMs yesterday. V/S noted. PE: Lungs: clear Cor.: S1S2 Abd.: soft Ext.: no edema Neuro.: alert Labs noted : INR= 2.62 Objective - Vital Signs/Intake and Output Vital Signs (last 24 hours): Temp Pulse Resp BP Pulse Ox 97.8 F 70 18 129/58 L 97 09/10/16 06:00 09/10/16 06:00 09/10/16 06:00 09/10/16 06:00 09/10/16 06:00 - Medications Medications: Current Medications Colchicine (Colocrys) 0.6 mg PO DAILY [facility] PRN Reason: Protocol Last Admin: 09/09/16 09:39 Dose: 0.6 mg Digoxin (Lanoxin) 0.125 mg PO 1400 [facility] PRN Reason: Protocol Last Admin: 09/09/16 14:28 Dose: 0.125 mg Doxycycline Hyclate (Doryx) 100 mg PO BID [facility] PRN Reason: Protocol Last Admin: 09/09/16 17:57 Dose: Not Given Furosemide (Lasix) 40 mg PO DAILY [facility] Last Admin: 09/09/16 09:42 Dose: 40 mg Guaifenesin (Robitussin) 100 mg PO Q4H PRN; Protocol PRN Reason: Cough Milrinone Lactate/Dextrose (Primacor 20mg/100ml D5w) 100 mls @ 4.545 mls/hr IV .Q22H1M PRN; Protocol; 0.2 MCG/KG/MIN PRN Reason: TITRATE PER MD ORDER Last Admin: 09/06/16 18:16 Dose: 0.2 mcg/kg/min, 4.545 mls/hr Isosorbide Mononitrate (Imdur) 60 mg PO 0600 [facility] PRN Reason: Protocol Last Admin: 09/10/16 06:57 Dose: 60 mg Levothyroxine Sodium (Synthroid) 112 mcg PO 0600 [facility] PRN Reason: Protocol Last Admin: 09/10/16 06:57 Dose: 112 mcg Losartan Potassium (Cozaar) 100 mg PO DAILY [facility] PRN Reason: Protocol Last Admin: 09/09/16 09:40 Dose: 100 mg Metoprolol Succinate (Toprol Xl) 50 mg PO 0800 [facility] PRN Reason: Protocol Last Admin: 09/09/16 08:38 Dose: 50 mg Pantoprazole Sodium (Protonix Ec Tab) 40 mg PO 0600 [facility] PRN Reason: Protocol Last Admin: 09/10/16 06:57 Dose: 40 mg Potassium Chloride (K-Dur 20 Meq Er Tab) 20 meq PO 0800,1800 [facility] PRN Reason: Protocol Last Admin: 09/10/16 08:47 Dose: 20 meq Warfarin Sodium (Coumadin) 4 mg PO 1800 [facility] PRN Reason: Protocol Last Admin: 09/09/16 17:54 Dose: 4 mg - Labs Labs: 09/09/16 05:35 09/09/16 05:35 PT 28.3 Seconds (9.9-11.8) H 09/10/16 07:00 INR 2.62 (0.93-1.08) H 09/10/16 07:00 Assessment and Plan - Assessment and Plan (Free Text) Assessment: Abdominal Pain Dyspnea, edema CHF/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 Pain. Continue PO Lasix Warfarin by INR's OOB/PT/Rehab efforts Hold amiod. for now. Will continue to discuss with her.
--- NOTE | 2016-09-10 11:36 | CP.PCM.DIS ---
<BRITNI DAMON - Last Filed: 09/10/16 13:03> Provider - Provider Date of Admission: 09/03/16 18:12 Attending physician: Marleny Man MD Primary care physician: Boaz Green MD Consults: Cardiology: Dr. Maria and Dr. Thompson Time Spent in preparation of Discharge (in minutes): 52 Hospital Course - Lab Results Lab Results: Most Recent Lab Values WBC 6.1 10^3/ul (4.5-11.0) 09/09/16 05:35 RBC 3.62 10^6/uL (3.5-6.1) 09/09/16 05:35 Hgb 10.9 gm/dL (12.0-16.0) L 09/09/16 05:35 Hct 33.2 % (36.0-48.0) L 09/09/16 05:35 MCV 91.7 fL (80.0-105.0) 09/09/16 05:35 MCH 30.1 pg (25.0-35.0) 09/09/16 05:35 MCHC 32.8 g/dl (31.0-37.0) 09/09/16 05:35 RDW 16.4 % (11.5-14.5) H 09/09/16 05:35 Plt Count 155 10^3/uL (120.0-450.0) 09/09/16 05:35 MPV 10.4 fl (7.0-11.0) 09/09/16 05:35 Gran % 55.9 % (50.0-68.0) 09/09/16 05:35 Lymph % (Auto) 29.8 % (22.0-35.0) 09/09/16 05:35 [place] % (Auto) 10.3 % (1.0-6.0) H 09/09/16 05:35 Eos % (Auto) 3.3 % (1.5-5.0) 09/09/16 05:35 Baso % (Auto) 0.7 % (0.0-3.0) 09/09/16 05:35 Gran # 3.44 (1.4-6.5) 09/09/16 05:35 Lymph # 1.8 (1.2-3.4) 09/09/16 05:35 [place] # 0.6 (0.1-0.6) 09/09/16 05:35 Eos # 0.2 (0.0-0.7) 09/09/16 05:35 Baso # 0.04 K/mm3 (0.0-2.0) 09/09/16 05:35 PT 28.3 Seconds (9.9-11.8) H 09/10/16 07:00 INR 2.62 (0.93-1.08) H 09/10/16 07:00 Sodium 135 mmol/L (132-148) 09/09/16 05:35 Potassium 4.4 mmol/L (3.6-5.0) 09/09/16 05:35 Chloride 97 mmol/L (98-107) L 09/09/16 05:35 Carbon Dioxide 29 mmol/L (21-33) 09/09/16 05:35 Anion Gap 13 (10-20) 09/09/16 05:35 BUN 40 mg/dL (7-21) H 09/09/16 05:35 Creatinine 1.5 mg/dL (0.5-1.4) H 09/09/16 05:35 Est GFR ( Amer) 40 09/09/16 05:35 Est GFR (Non-Af Amer) 33 09/09/16 05:35 Random Glucose 82 mg/dL (70-110) 09/09/16 05:35 Calcium 9.1 mg/dL (8.4-10.5) 09/09/16 05:35 Total Bilirubin 1.4 mg/dL (0.2-1.3) H 09/09/16 05:35 AST 34 U/L (15-39) 09/09/16 05:35 ALT 34 U/L (7-56) 09/09/16 05:35 Alkaline Phosphatase 105 U/L (38-133) 09/09/16 05:35 Total Protein 7.0 g/dL (5.8-8.3) 09/09/16 05:35 Albumin 3.4 g/dL (3.0-4.8) 09/09/16 05:35 Globulin 3.6 gm/dL 09/09/16 05:35 Albumin/Globulin Ratio 0.9 (1.1-1.8) L 09/09/16 05:35 - Hospital Course Hospital Course: 86 year old female with a past medical history of systolic heart failure, atrial fibrillation, and hypothyroidism presented with complaints of shortness of breath for the past 5 days. A Chest Xray revealed mild pulmonary edema, however this was relatively unchanged from prior images. The patient was continued on Milrinone as well as beta emilia, aspirin, statin, VIDA/ARB. Lasix was given IV BID with improvement in LE edema as well as respiratory status. Cardiology was consulted and recommended continued medical management. Echo was done in March, revealing EF of 8.7%. Patient was evaluated by PT and assessed to be deconditioned and would benefit from physical rehabilitation. The patient then transferred to TCU for further medical management of CHF as well as for physical rehabilitation. An abdominal xray was performed and showed no acute process. - Date & Time of H&P Date of H&P: 09/04/16 Time of H&P: 11:45 Discharge Exam - Head Exam Head Exam: ATRAUMATIC, NORMAL INSPECTION - Eye Exam Eye Exam: EOMI, Normal appearance - ENT Exam ENT Exam: Mucous Membranes Moist, Normal Exam - Neck Exam Neck exam: Full Rom - Respiratory Exam Respiratory Exam: NORMAL BREATHING PATTERN, UNREMARKABLE. absent: Rales, Rhonchi, Wheezes, Respiratory Distress - Cardiovascular Exam Cardiovascular Exam: REGULAR RHYTHM, RRR, +S1, +S2 - GI/Abdominal Exam GI & Abdominal Exam: Normal Bowel Sounds. absent: Distended, Mass - Extremities Exam Additional comments: no lower extremity edema or tenderness - Neurological Exam Neurological exam: Alert, Normal Gait, Oriented x3 - Psychiatric Exam Psychiatric exam: Normal Affect, Normal Mood - Skin Skin Exam: Dry, Intact, Normal Color, Warm Discharge Plan - Discharge Medications Prescriptions: Milrinone 20mg/100ml D5W [Primacor 20mg/100ml D5W] 20 mg IV 2XW #104 bag Pantoprazole [Protonix EC Tab] 40 mg PO 0600 #30 ect Warfarin [Coumadin] 3 mg PO 1800 #30 tab - Follow Up Plan Condition: GOOD Disposition: HOME/ ROUTINE Instructions: Heart Failure (DC), Dilated Cardiomyopathy (DC), Pulmonary Edema (DC), Laminectomy (DC), Gout (DC) Additional Instructions: 1. If you have new or worsening symptoms, please seek emergency medical assistance. 2. Schedule a follow up visit with your primary care physician to discuss the medical conditions addressed at this hospital visit. 3. Follow up with Dr. Castrejon for your gastrointestinal discomfort. Referrals: Boaz Green MD [Primary Care Provider] - <Marleny Man - Last Filed: 09/10/16 13:18> Provider - Provider Date of Admission: 09/03/16 18:12 Attending physician: Marleny Man MD Primary care physician: Boaz Green MD Hospital Course - Lab Results Lab Results: Most Recent Lab Values WBC 6.1 10^3/ul (4.5-11.0) 09/09/16 05:35 RBC 3.62 10^6/uL (3.5-6.1) 09/09/16 05:35 Hgb 10.9 gm/dL (12.0-16.0) L 09/09/16 05:35 Hct 33.2 % (36.0-48.0) L 09/09/16 05:35 MCV 91.7 fL (80.0-105.0) 09/09/16 05:35 MCH 30.1 pg (25.0-35.0) 09/09/16 05:35 MCHC 32.8 g/dl (31.0-37.0) 09/09/16 05:35 RDW 16.4 % (11.5-14.5) H 09/09/16 05:35 Plt Count 155 10^3/uL (120.0-450.0) 09/09/16 05:35 MPV 10.4 fl (7.0-11.0) 09/09/16 05:35 Gran % 55.9 % (50.0-68.0) 09/09/16 05:35 Lymph % (Auto) 29.8 % (22.0-35.0) 09/09/16 05:35 [place] % (Auto) 10.3 % (1.0-6.0) H 09/09/16 05:35 Eos % (Auto) 3.3 % (1.5-5.0) 09/09/16 05:35 Baso % (Auto) 0.7 % (0.0-3.0) 09/09/16 05:35 Gran # 3.44 (1.4-6.5) 09/09/16 05:35 Lymph # 1.8 (1.2-3.4) 09/09/16 05:35 [place] # 0.6 (0.1-0.6) 09/09/16 05:35 Eos # 0.2 (0.0-0.7) 09/09/16 05:35 Baso # 0.04 K/mm3 (0.0-2.0) 09/09/16 05:35 PT 28.3 Seconds (9.9-11.8) H 09/10/16 07:00 INR 2.62 (0.93-1.08) H 09/10/16 07:00 Sodium 135 mmol/L (132-148) 09/09/16 05:35 Potassium 4.4 mmol/L (3.6-5.0) 09/09/16 05:35 Chloride 97 mmol/L (98-107) L 09/09/16 05:35 Carbon Dioxide 29 mmol/L (21-33) 09/09/16 05:35 Anion Gap 13 (10-20) 09/09/16 05:35 BUN 40 mg/dL (7-21) H 09/09/16 05:35 Creatinine 1.5 mg/dL (0.5-1.4) H 09/09/16 05:35 Est GFR ( Amer) 40 09/09/16 05:35 Est GFR (Non-Af Amer) 33 09/09/16 05:35 Random Glucose 82 mg/dL (70-110) 09/09/16 05:35 Calcium 9.1 mg/dL (8.4-10.5) 09/09/16 05:35 Total Bilirubin 1.4 mg/dL (0.2-1.3) H 09/09/16 05:35 AST 34 U/L (15-39) 09/09/16 05:35 ALT 34 U/L (7-56) 09/09/16 05:35 Alkaline Phosphatase 105 U/L (38-133) 09/09/16 05:35 Total Protein 7.0 g/dL (5.8-8.3) 09/09/16 05:35 Albumin 3.4 g/dL (3.0-4.8) 09/09/16 05:35 Globulin 3.6 gm/dL 09/09/16 05:35 Albumin/Globulin Ratio 0.9 (1.1-1.8) L 09/09/16 05:35 Attending/Attestation - Attestation I have personally seen and examined this patient.: Yes I have fully participated in the care of the patient.: Yes I have reviewed all pertinent clinical information, including history, physical exam and plan: Yes Notes (Text): 09/10/16 13:09 86 year old female with past medical history of cardiomyopathy, systolic CHF and chronic afib who presented with CHF exacerbation. Her symptoms improved with iv lasix and milrinone and she was transferred to TCU for rehab therapy. She was maintained on po lasix, cozaar, toprol and milrinone and followed by cardiology. Patient refused to be on amiodarone. She is on coumadin for afib. Today she complained of mild epigastric pain x 2 weeks. AXR was negative. She is tolerating diet. She is on PPI. Patient will be discharged home today. Follow up with pmd and cardiology. If abdominal discomfort persists follow up with GI. Marleny Man MD Hospitalist.
--- NOTE | 2016-09-10 12:09 | RAD ---
HISTORY: Abdominal pain COMPARISON: No prior. FINDINGS: BOWEL: Normal. No obstruction. No free air. BONES: Multilevel degenerative changes are seen OTHER FINDINGS: None. IMPRESSION: No active disease.
[2016-09-10] MEDS: Digoxin 125 mcg (0.125 mg) Tab PO SCH (13:38)
[2016-09-10 13:40] VITALS: PULSE 69
--- NOTE | 2016-09-15 12:58 | CP.PCM.PN ---
Subjective - Date & Time of Evaluation Date of Evaluation: 09/04/16 Time of Evaluation: 09:12 - Subjective Subjective: Pt is seen sitting in bed on the transition of care. She is comfortable at rest. She states her dyspnea is somewhat improved. Her current meds include IV Milrinone, Coumadin 7.5mg daily, Colchicine, Cozaar 100 mg daily, Doxycycline, Imdur 60 mg daily, Lasix 40mg BID, K 20 mEq BID, Digoxin .125 mg daily, Protonix 40 mg daily, Synthroid 112 micrograms daily, Metropolol XL 50 mg daily, Objective - Vital Signs/Intake and Output Vital Signs (last 24 hours): Temp Pulse Resp BP Pulse Ox 97.8 F 70 18 129/58 L 97 09/10/16 06:00 09/10/16 08:05 09/10/16 06:00 09/10/16 09:54 09/10/16 06:00 - Medications Medications: Her current meds include IV Milrinone, Coumadin 7.5mg daily, Colchicine, Cozaar 100 mg daily, Doxycycline, Imdur 60 mg daily, Lasix 40mg BID, K 20 mEq BID, Digoxin .125 mg daily, Protonix 40 mg daily, Synthroid 112 micrograms daily, Metropolol XL 50 mg daily, - Labs Labs: 09/09/16 05:35 09/09/16 05:35 PT 28.3 Seconds (9.9-11.8) H 09/10/16 07:00 INR 2.62 (0.93-1.08) H 09/10/16 07:00 - Constitutional Appears: Other (Very elderly woman who appears comfortable at rest. BP 126/70 Pulse 76 Respirations are 16. She is afebrile.) - Respiratory Exam Respiratory Exam: Rhonchi Additional comments: Bilateral scattered rhonchi with diminished breath sounds at the left base - Cardiovascular Exam Cardiovascular Exam: absent: JVD Additional comments: PMI displaced laterally with soft tones noted, systolic murmur present lower left sternal border in the apex. - GI/Abdominal Exam GI & Abdominal Exam: Soft, Normal Bowel Sounds. absent: Tenderness Additional comments: obese - Extremities Exam Extremities Exam: Pedal Edema (trace) - Additional Findings Additional findings: Diagnostic data: K is 4.6, BUN and Creatinine are 30 and 1.3 Hemoglobin and Hematocrit are 11.4 and 35.8 with a white count of 6.3 and a platelet count of 155,000 INR today is 5.13 Assessment and Plan - Assessment and Plan (Free Text) Assessment: 1. [id number] Decompensated CHF predominantly systolic, clinically improved 2.Congestive cardiomyopathy nonischemic 3. Excessive anticoagulation 4. Rester problems as noted Plan: Coumadin will be withheld for today. IV Lasix will be continued. Chronic Milrinone therapy will be continued as well. Daily INR will be monitored. We will continue to follow along and make further recommendations as appropriate.
== END 2016-09-10 18:04 | disposition home or self-care (01) | DRG 293 ==
LOC: TRCU 18:12
PROVIDERS: ADMIT Internal Medicine; ATTEND Internal Medicine
PROC: F07Z9FZ Gait Training/Functional Ambulation Treatment using Assistive, Adaptive, Supportive or Protective Equipment (ICD-10-PCS; principal; 2016-09-04)
PROC: F08Z4FZ Home Management Treatment using Assistive, Adaptive, Supportive or Protective Equipment (ICD-10-PCS; 2016-09-06)
DX: I11.0 Hypertensive heart disease with heart failure (principal); I50.23 Acute on chronic systolic (congestive) heart failure; I27.2 Other secondary pulmonary hypertension; I42.0 Dilated cardiomyopathy; I48.2 Chronic atrial fibrillation; Z79.01 Long term (current) use of anticoagulants; I08.1 Rheumatic disorders of both mitral and tricuspid valves; E03.9 Hypothyroidism, unspecified; M10.9 Gout, unspecified; R79.1 Abnormal coagulation profile; Z86.73 Personal history of transient ischemic attack (TIA), and cerebral infarction without residual deficits; Z95.810 Presence of automatic (implantable) cardiac defibrillator; Z87.891 Personal history of nicotine dependence

== ENCOUNTER 2016-09-25 06:12 | Inpatient (IN) | payer MEDICARE, OTHER ==
[2016-09-25 06:16] VITALS: BMI 28.3
--- NOTE | 2016-09-25 07:35 | ED PDOC ---
Arrival/HPI - General Chief Complaint: Shortness Of Breath Time Seen by Provider: 09/25/16 07:07 Historian: Patient - History of Present Illness Narrative History of Present Illness (Text): 09/25/16 07:07 Britt Barlow is an 86 year old, whose past medical history includes congestive heart failure, arrhythmia with pace maker, female who presents to the emergency department complaining of shortness of breath and bilateral swelling to her legs for a few weeks. Patient notes that she was in the hospital a few days ago for the same symptoms which have been consistent since leaving the hospital. Patient states that she experiences difficulty walking and her symptoms worsen upon exertion. Patient says that she met with her sales representative electric service, Dr. Alcantara, two days ago for the same symptoms and states that she was advised to come to the ER. Patient denies any fever, chills, chest pain , nausea, vomiting, diarrhea, urinary symptoms, back pain, neck pain, headache, dizziness, or any other complaints. PMD: Dr. Green Hotel Maintenance Technician: Dr. Alcantara Time/Duration: < month Symptom Onset: Gradual Symptom Course: Unchanged Severity Level: Moderate Activities at Onset: Rest Context: Home Past Medical History - Provider Review Nursing Documentation Reviewed: Yes - Infectious Disease Hx of Infectious Diseases: None - Tetanus Immunization Tetanus Immunization: Unknown - Cardiac Hx Cardiac Disorders: Yes (Chronic Afib, cardiomyopathy) Hx Hypertension: Yes (Pulmonary HTN) - Pulmonary Hx Chronic Obstructive Pulmonary Disease (COPD): Yes - Neurological HX Cerebrovascular Accident: Yes - HEENT Hx HEENT Disorder: Yes (eyeglasses) Hx Blind: No Hx Cataracts: Yes (r eye 01/24/13) - Renal Hx Renal Disorder: No - Endocrine/Metabolic Hx Hypothyroidism: Yes - Hematological/Oncological Hx Blood Transfusions: No Hx Blood Transfusion Reaction: No - Integumentary Hx Dermatological Disorder: Yes (b/l pedal edema) - Musculoskeletal/Rheumatological Hx Falls: Yes - Gastrointestinal Hx Gastrointestinal Disorders: Yes Other/Comment: ABDOMINAL HERNIA REPAIR,CHOLECYSTECTOMY - Genitourinary/Gynecological Hx Reproductive Disorders: No Other/Comment: r breast bx benigh - Psychiatric Hx Emotional Abuse: No Hx Physical Abuse: No Hx Substance Use: No - Surgical History Hx Cholecystectomy: Yes Other/Comment: hammer toe surgery, laminectomy in 1990, had an abdominal hernia repair. pacemaker/defib in L chest wall. R chest wall port placement - Anesthesia Hx Anesthesia: Yes Hx Anesthesia Reactions: No Hx Malignant Hyperthermia: No - Suicidal Assessment Feels Threatened In Home Enviroment: No Family/Social History - Physician Review Nursing Documentation Reviewed: Yes Family/Social History: No Known Family HX Smoking Status: Former Smoker Hx Alcohol Use: No Hx Substance Use: No Allergies/Home Meds Allergies/Adverse Reactions: Allergies codeine Allergy (Verified 09/25/16 06:16) SHORTNESS OF BREATH Penicillins Allergy (Verified 09/25/16 06:16) RASH Review of Systems - Review of Systems Constitutional: Fatigue. absent: Fevers Eyes: absent: Vision Changes, Eye Pain ENT: absent: Hearing Changes, Sore Throat, Rhinorrhea Respiratory: SOB. absent: Cough Cardiovascular: Edema, IVY, Orthopnea. absent: Chest Pain, Syncope Gastrointestinal: absent: Abdominal Pain, Nausea, Vomiting Genitourinary Female: absent: Dysuria Musculoskeletal: absent: Arthralgias, Back Pain Skin: absent: Rash Neurological: absent: Headache, Dizziness, Focal Weakness Endocrine: absent: Diaphoresis Hemo/Lymphatic: absent: Adenopathy Psychiatric: absent: Anxiety Physical Exam - Physical Exam Narrative Physical Exam (Text): Head: Atraumatic. Normocephalic. Eyes: PERRL. EOMI. Conjunctivae are not pale. ENT: Mucous membranes are moist and intact. Oropharynx is clear and symmetric. Neck: Positive JVD. No meningeal signs. Cardiovascular: Right sided chest wall port in place. Regular rate and rhythm, systolic murmur. Pulmonary/Chest: Bilateral Crackles. Mildly tachypneic. No respiratory distress. No retractions. Abdominal: Soft and non-distended. There is no tenderness. No rebound, guarding, or rigidity. No organomegaly. Good bowel sounds. Back: No CVA tenderness. Extremities: Positive bilateral LE Edema. No calf pain. Full range of motion. Skin: Skin is warm and dry. No petechiae. No purpura. Neurological: Alert, awake, and oriented to person, place, time, and situation. Normal speech. Motor and sensory intact. Psychiatric: Good eye contact. Normal interaction, affect, and behavior. Vital Signs Reviewed: Yes Vital Signs Temp Pulse Resp BP Pulse Ox 09/25/16 09:01 75 127/74 09/25/16 08:49 74 130/71 07/22/17 08:12 72 17 130/71 96 09/25/16 07:27 116/64 09/25/16 06:30 24 97 09/25/16 06:24 97.6 F 76 24 129/70 96 Temperature: Afebrile Blood Pressure: Normal Pulse: Regular Respiratory Rate: Tachypneic Appearance: Positive for: Non-Toxic, Comfortable Pain Distress: Mild Mental Status: Positive for: Alert and Oriented X 3 Medical Decision Making ED Course and Treatment: 09/25/16 0707 Impression: 86 year old female complaining of shortness of breath and bilateral swelling to LE for a few weeks. Differential Diagnosis included but are not limited to: Cardiomyopathy vs. CHF Plan: -- EKG -- Chest X-ray -- Urinalysis -- Labs -- Reassess and disposition Prior Visits: Notes and results from previous visits were reviewed. Patient last seen in the ED on 08/31/16 for dyspnea on exertion and lower leg edema for one week. Patient was admitted to hospitalist care for further evaluation. Progress Notes: Patient is not hypoxic on room air, but crackles noted with elevated BNP, chest xray also suggestive of pulmonary vascular congestion. EKG: Ordered, reviewed, and independently interpreted the EKG. Rate : 76 BPM Rhythm : Electronic ventricular pace maker rhythm Interpretation : No ST-segment elevations or depressions, no T-wave inversions, normal intervals. Patient already on Milrinone drip. IV lasix ordered. 09/25/16 08:[address] Alcantara, patient's sales representative electric service, exam and labs reviewed. Will admit for management of CHF. No active bleeding. Anemia noted, but chronic. No calf pain. On re-examination, respiratory rate is 14 at rest. 09/25/16 08:[address] Guerrero, who is aware and agrees with patient plant for admission. - Lab Interpretations Lab Results: 09/25/16 06:40 09/25/16 06:40 Lab Results 09/25/16 06:40: Digoxin 1.3 09/25/16 06:40: Sodium 138, Potassium 3.4 L, Chloride 98, Carbon Dioxide 30, Anion Gap 13, BUN 30 H, Creatinine 1.4, Est GFR ( Amer) 43, Est GFR (Non- Af Amer) 36, Random Glucose 107, Calcium 9.2, Total Bilirubin 0.9, AST 29, ALT 26, Alkaline Phosphatase 92, Lactate Dehydrogenase 560, Total Creatine Kinase 41 , Troponin I 0.06, NT-Pro-B Natriuret Pep 4000 H, Total Protein 7.0, Albumin 3.5 , Globulin 3.6, Albumin/Globulin Ratio 1.0 L 09/25/16 06:40: PT 16.1 H, INR 1.49 H, APTT 28.9 09/25/16 06:40: WBC 6.0, RBC 3.57, Hgb 10.6 L, Hct 33.2 L, MCV 93.0, MCH 29.7, MCHC 31.9, RDW 16.7 H, Plt Count 155, MPV 11.2 H, Gran % 62.0, Lymph % (Auto) 25.5, [place] % (Auto) 9.7 H, Eos % (Auto) 2.3, Baso % (Auto) 0.5, Gran # 3.73, Lymph # 1.5, [place] # 0.6, Eos # 0.1, Baso # 0.03 I have reviewed the lab results: Yes - RAD Interpretation Radiology Orders: 09/25/16 07:13 CHEST PORTABLE [RAD] Stat - EKG Interpretation Interpreted by ED Physician: Yes Type: 12 lead EKG - Medication Orders Current Medication Orders: Amiodarone HCl (Cordarone) 400 mg PO 0800,1800 YAA Digoxin (Lanoxin) 0.125 mg PO 1400 YAA Enoxaparin Sodium (Lovenox) 70 mg SC Q12H YAA PRN Reason: Protocol Furosemide (Lasix) 40 mg IVP Q12 YAA Guaifenesin (Robitussin) 100 mg PO Q4H PRN PRN Reason: Cough Milrinone Lactate/Dextrose (Primacor 20mg/100ml D5w) 100 mls @ 4.627 mls/hr IV .[id number] PRN; Protocol; 0.2 MCG/KG/MIN PRN Reason: TITRATE PER MD ORDER Last Admin: 09/25/16 09:01 Dose: 0.2 mcg/kg/min, 4.627 mls/hr Isosorbide Mononitrate (Imdur) 60 mg PO 0600 YAA Levothyroxine Sodium (Synthroid) 112 mcg PO 0600 YAA Losartan Potassium (Cozaar) 100 mg PO DAILY YAA Metoprolol Succinate (Toprol Xl) 50 mg PO BRK YAA Last Admin: 09/25/16 08:49 Dose: 50 mg Pantoprazole Sodium (Protonix Ec Tab) 40 mg PO 0600 YAA Potassium Chloride (Potassium Chloride Oral Soln) 40 meq PO DAILY YAA Warfarin Sodium (Coumadin) 5 mg PO 1800 YAA PRN Reason: Protocol Discontinued Medications Furosemide (Lasix) 40 mg IVP ONCE ONE Stop: 09/25/16 07:15 Last Admin: 09/25/16 07:27 Dose: 40 mg Non-Formulary Medication (Milrinone 20mg/100ml D5w [Primacor 20mg/100ml D5w]) 20 mg IV 2XW YAA Potassium Chloride (K-Dur 20 Meq Er Tab) 20 meq PO STAT STA Stop: 09/25/16 08:22 Last Admin: 09/25/16 08:46 Dose: Potassium Chloride (K-Dur 20 Meq Er Tab) 20 meq PO 0800,1800 YAA Potassium Chloride (Potassium Chloride Oral Soln) 40 meq PO ONCE ONE Stop: 09/25/16 08:43 Last Admin: 09/25/16 08:49 Dose: 40 meq - Dewayneibe Statement The provider has reviewed the documentation as recorded by the Shaila Vuong Provider Scribe Attestation: All medical record entries made by the Dewayneibgwen were at my direction and personally dictated by me. I have reviewed the chart and agree that the record accurately reflects my personal performance of the history, physical exam, medical decision making, and the department course for this patient. I have also personally directed, reviewed, and agree with the discharge instructions and disposition. Disposition/Present on Arrival - Present on Arrival Any Indicators Present on Arrival: No History of DVT/PE: No History of Uncontrolled Diabetes: No Urinary Catheter: No History of Decub. Ulcer: No History Surgical Site Infection Following: None - Disposition Have Diagnosis and Disposition been Completed?: Yes Diagnosis: Congestive heart failure Disposition: HOSPITALIZED Disposition Time: 08:18 Patient Plan: Admission, Observation, Telemetry Patient Problems: Current Active Problems Problem Status Onset Congestive heart failure Acute Condition: FAIR
[2016-09-25 07:48] LABS: ALBUMIN 3.5 g/dL (3.0-4.8); CALCIUM 9.2 mg/dL (8.4-10.5)
[2016-09-25 07:57] LABS: TROPONIN I 0.06 ng/mL
[2016-09-25 08:01] LABS: INR 1.49 (0.93-1.08); PARTIAL THROMBOPLASTIN TIME 28.9 Seconds (23.7-30.8); PROTHROMBIN TIME 16.1 Seconds (9.9-11.8)
[2016-09-25 08:04] LABS: BASO # 0.03 K/mm3 (0.0-2.0); BASO % 0.5 % (0.0-3.0); EOS # 0.1 (0.0-0.7); EOS % 2.3 % (1.5-5.0); GRAN # 3.73 (1.4-6.5); HEMOGLOBIN 10.6 gm/dL (12.0-16.0); LYMPH # 1.5 (1.2-3.4); LYMPH % 25.5 % (22.0-35.0); MEAN CORPUSCULAR HEMOGLOBIN 29.7 pg (25.0-35.0); MEAN CORPUSCULAR HGB CONC 31.9 g/dl (31.0-37.0); MEAN PLATELET VOLUME 11.2 fl (7.0-11.0); MONO # 0.6 (0.1-0.6); MONO % 9.7 % (1.0-6.0); PLATELET COUNT 155 10^3/uL (120.0-450.0); RBC 3.57 10^6/uL (3.5-6.1); RED CELL DISTRIBUTION WIDTH 16.7 % (11.5-14.5)
[2016-09-25] MEDS ORDERED: Potassium Chloride 20 mEq ER Tab PO STA (08:21)
[2016-09-25] MEDS ORDERED: guaiFENesin 100 mg/5 ml Syrup UD PO PRN (08:37)
[2016-09-25] MEDS ORDERED: Potassium Chloride 40 mEq/30 ml LIQ UD PO ONE (08:42)
[2016-09-25] MEDS: Metoprolol Succinate 50 mg XL Tab PO SCH (08:49)
[2016-09-25] MEDS: Milrinone 20mg/100ml D5W 100 ML IV PRN (09:01)
[2016-09-25] MEDS ORDERED: Potassium Chloride 40 mEq/30 ml LIQ UD PO SCH (10:00)
[2016-09-25] MEDS ORDERED: [UNRECOGNIZED DRUG - OTHER] IV SCH (10:00)
[2016-09-25] MEDS ORDERED: MILRINONE 20 MG/100 ML IV SCH (10:00)
[2016-09-25] MEDS: Enoxaparin 80 mg Syringe SC SCH ×2 (10:49→21:12)
--- NOTE | 2016-09-25 12:11 | CP.PCM.HP ---
<BRITNI DAMON - Last Filed: 09/25/16 12:00> History of Present Illness - History of Present Illness History of Present Illness: CC: Shortness of breath/Leg Swelling Mrs. Barlow is an 86 year old female with a past medical history of systolic heart failure, atrial fibrillation, and hypothyroidism presenting with complaints of shortness of breath and bilateral lower leg swelling for a few weeks. Patient was recently discharged from [facility] a few weeks ago where she was admitted after presenting with similar symptoms. She reports the shortness of breath and leg swelling have been consistent for quite some time now. Patient states that she experiences dyspnea when walking even 20 steps and her symptoms worsen upon further exertion. Patient says that she met with her mucker operator, Dr. Alcantara, two days ago for the same symptoms and states that she was advised to come to the ER. She reports that she didn't go at that time because she "just didn't want to". Patient states that she is compliant with all medications and has been on a Milrinone infusion for 2 years. She denies any recent illness, headache, changes in vision, chest pain, palpitations, abdominal pain, nausea, vomiting or diarrhea. Most recent echo done on 03/2016 reveals an EF of 8.7% with 4 chamber dilation. PMH: Systolic Heart Failure w/ ICD placement, Atrial Fibrillation w/ PPM, Hypothyroidism, Gout PSH: Laminectomy, Cholecystectomy, Hernia Repair FH: non-contributory Allergies: codeine, penicillins Social hx: former smoker - quit 1990. Denies alcohol or illicit drug use PMD: Dr. Green Supervisor Smoke Control: Dr. Alcantara Present on Admission - Present on Admission Any Indicators Present on Admission: No Review of Systems - Review of Systems Review of Systems: Please refer to HPI Past Patient History - Infectious Disease Hx of Infectious Diseases: None - Tetanus Immunizations Tetanus Immunization: Unknown - Past Medical History & Family History Past Medical History?: Yes - Past Social History Smoking Status: Former Smoker - CARDIAC Hx Cardiac Disorders: Yes (Chronic Afib, cardiomyopathy) Hx Hypertension: Yes (Pulmonary HTN) - PULMONARY Hx Chronic Obstructive Pulmonary Disease (COPD): Yes - NEUROLOGICAL HX Cerebrovascular Accident: Yes - HEENT Hx HEENT Problems: Yes (eyeglasses) Hx Blind: No Hx Cataracts: Yes (r eye 01/24/13) - RENAL Hx Chronic Kidney Disease: No - ENDOCRINE/METABOLIC Hx Hypothyroidism: Yes - HEMATOLOGICAL/ONCOLOGICAL Hx Blood Transfusions: No Hx Blood Transfusion Reaction: No - INTEGUMENTARY Hx Dermatological Problems: Yes (b/l pedal edema) - MUSCULOSKELETAL/RHEUMATOLOGICAL Hx Falls: Yes - GASTROINTESTINAL Hx Gastrointestinal Disorders: Yes Other/Comment: ABDOMINAL HERNIA REPAIR,CHOLECYSTECTOMY - GENITOURINARY/GYNECOLOGICAL Hx Reproductive Disorders: No Other/Comment: r breast bx benigh - PSYCHIATRIC Hx Emotional Abuse: No Hx Physical Abuse: No Hx Substance Use: No - SURGICAL HISTORY Hx Cholecystectomy: Yes Other/Comment: hammer toe surgery, laminectomy in 1990, had an abdominal hernia repair. pacemaker/defib in L chest wall. R chest wall port placement - ANESTHESIA Hx Anesthesia: Yes Hx Anesthesia Reactions: No Hx Malignant Hyperthermia: No Meds Allergies/Adverse Reactions: Allergies Allergy/AdvReac Type Severity Reaction Status Date / Time codeine Allergy SHORTNESS Verified 09/25/16 12:23 OF BREATH Penicillins Allergy RASH Verified 09/25/16 12:23 Physical Exam - Constitutional Appears: No Acute Distress - Head Exam Head Exam: NORMAL INSPECTION, NORMOCEPHALIC - Eye Exam Eye Exam: EOMI, Normal appearance - ENT Exam ENT Exam: Mucous Membranes Moist, Normal Exam - Neck Exam Neck exam: Positive for: Full Rom. Negative for: Lymphadenopathy Additional comments: JVD - Respiratory Exam Respiratory Exam: Rhonchi. absent: Chest Wall Tenderness, Prolonged Expiratory Phase, Respiratory Distress - Cardiovascular Exam Cardiovascular Exam: REGULAR RHYTHM, RRR, Systolic Murmur Additional comments: R chest wall port in place - GI/Abdominal Exam GI & Abdominal Exam: Normal Bowel Sounds. absent: Diminished Bowel Sounds, Distended, Firm, Tenderness - Extremities Exam Extremities exam: Positive for: pedal edema, pedal pulses present. Negative for : calf tenderness Additional comments: 2+ pitting edema bilaterally extending up from the ankles to the mid calf - Back Exam Back exam: absent: CVA tenderness (L), CVA tenderness (R) - Neurological Exam Neurological exam: Alert, Oriented x3 - Psychiatric Exam Psychiatric exam: Normal Affect, Normal Mood - Skin Skin Exam: Dry, Intact, Normal Color, Warm Results - Vital Signs Recent Vital Signs: Last Vital Signs Temp 97.7 F 09/25/16 10:43 Pulse 74 09/25/16 10:43 Resp 21 09/25/16 10:43 BP 134/78 09/25/16 10:43 Pulse Ox 96 09/25/16 10:43 - Labs Result Diagrams: 09/25/16 06:40 09/25/16 06:40 - EKG Data EKG Interpreted by: ER Physician EKG shows normal: Sinus rhythm, Intervals, QRS complexes, ST-T waves Rate: Normal Assessment & Plan - Assessment and Plan (Free Text) Assessment: Mrs. Barlow is an 86 year old female with a past medical history of systolic heart failure, atrial fibrillation, and hypothyroidism presenting with complaints of shortness of breath and bilateral lower leg swelling. Plan: 1. CHF Exacerbation -Cardiology ([facility]) consulted, all recommendations appreciated; [facility] follows patient in clinic -EKG and Chest XR done in ED, reports pending -follow up with U/S doppler of bilateral LE's done to r/o DVT -40mg Lasix given once in ED -IV Lasix 40mg Q12, Digoxin, Cozaar, Toprol -Heart healthy diet and strict I's and O's -PT/OT evaluation and treatment when clinically appropriate -Telemetry 2. History of Atrial Fibrillation -cont home amiodarone and milrinone -Coumadin 5mg and Therapeutic Lovenox -INR of 1.49 today; will monitor and adjust AC regiment accordingly 3. Hypokalemia -40meq KCl oral solution given once in ED -cont home KCl 4. History of Hypothyroidism -cont home synthroid 5. GI/DVT Prohpylaxis -Protonix/Lovenox Patient seen and case discussed in detail with attending, Dr. Guerreor. - Date & Time Date: 09/25/16 Time: 12:49 Decision To Admit - . Bed Request Type: Telemetry <Marvin Guerrero - Last Filed: 09/25/16 14:34> Results - Vital Signs Recent Vital Signs: Last Vital Signs Temp 97.7 F 09/25/16 12:23 Pulse 74 09/25/16 12:23 Resp 21 09/25/16 12:23 BP 134/78 09/25/16 12:23 Pulse Ox 96 09/25/16 10:43 - Labs Result Diagrams: 09/25/16 06:40 09/25/16 06:40 Attending/Attestation - Attestation I have personally seen and examined this patient.: Yes I have fully participated in the care of the patient.: Yes I have reviewed all pertinent clinical information: Yes Notes (Text): 09/25/16 14:30 attending note; Patient seen and examined with resident in ER. Patient's sister and son by the bedside. Patient is a 85-year-old female with a past medical history of cardiomyopathy, AICD, valvular heart disease, pulmonary hypertension, on home milrinone drip is admitted with increasing leg swelling and shortness of breath. Acute decompensated systolic heart failure on chronic CHF. Git 1 dose of IV lasix in ER. strict I's and O's. Daily weights. Cardiac diet ordered. Cardiology evaluation with requested. Continue milrinone drip. last echo showed EF of 9% in mar 2016.. advanced cardiomyopathy. continue digoxin, amiadarone, cozaar amd metoprolol. SUbTherapeutic INR; continue on Coumadin. started on lovenox bridge therapy till INR is therapeutic. General Deconditioning. Upon discharge patient will follow-up with PMD . The diagnosis and treatment discussed with patient in detail. 09/25/16 14:34
--- NOTE | 2016-09-25 13:04 | RAD ---
HISTORY: sob, chf COMPARISON: 08/31/2016 FINDINGS: LUNGS: Minimal opacity at right lung base, likely subsegmental atelectasis. No infiltrate PLEURA: Elsewhere. Very small right pleural effusion. No definite left pleural effusion though costophrenic angle is obscured by AICD electronic nodule. CARDIOVASCULAR: Normal heart size. AICD. Right internal jugular central venous infusion port. OSSEOUS STRUCTURES: No significant abnormalities. VISUALIZED UPPER ABDOMEN: Normal. OTHER FINDINGS: None. IMPRESSION: Small right pleural effusion. Probable subsegmental atelectasis at right base. AICD.
--- NOTE | 2016-09-25 13:07 | US ---
HISTORY: Leg pain and swelling. Evaluate for DVT PHYSICIAN(S): Ki Ruth MD. TECHNIQUE: Duplex sonography and color-flow Doppler with graded compression were used to evaluate the deep venous systems of both lower extremities. The exam is somewhat limited by edema. The tibial veins are not well seen. FINDINGS: The visualized deep venous systems of both lower extremities are sonographically normal and compressible. Normal wave forms and augmentation are seen. There is no sonographic evidence for deep venous thrombosis in the visualized segments of both lower extremities. IMPRESSION: No sonographic evidence for deep venous thrombosis in the visualized segments of both lower extremities.
[2016-09-25] MEDS ORDERED: Pneumococcal 23-Valent Vaccine IM ONE (13:09)
[2016-09-25] MEDS: Digoxin 125 mcg (0.125 mg) Tab PO SCH (13:37)
[2016-09-25] MEDS ORDERED: Potassium Chloride 20 mEq ER Tab PO SCH (18:00)
--- NOTE | 2016-09-25 20:43 | CARD ---
APPROVED REPORT EKG Measurement Heart [id number] <Conclusion> Atrial sensed, ventricular paced rhythm, PVCs
[2016-09-26 00:34] LABS: PH,URINE 6.5 (4.7-8.0); URINE BILIRUBIN NEGATIVE (NEGATIVE); URINE BLOOD NEGATIVE (NEGATIVE); URINE GLUCOSE (UA) NEGATIVE (NEGATIVE); URINE LEUKOCYTE ESTERASE MODERATE Leu/uL (NEGATIVE); URINE NITRATE NEGATIVE (NEGATIVE); URINE PROTEIN NEGATIVE mg/dL (<30 mg/dL)
[2016-09-26 00:40] LABS: URINE APPEARANCE CLEAR (CLEAR)
[2016-09-26 00:51] LABS: URINE AMORPHOUS SEDIMENT TRACE; URINE BACTERIA TRACE (NEG)
[2016-09-26] MEDS: Milrinone 20mg/100ml D5W 100 ML IV PRN ×3 (02:00→20:58)
[2016-09-26] MEDS: Levothyroxine 112 MCG TAB PO SCH (05:07)
[2016-09-26] MEDS: Pantoprazole 40 mg EC Tab PO SCH (05:07)
[2016-09-26 07:56] LABS: INR 1.99 (0.93-1.08); PARTIAL THROMBOPLASTIN TIME 37.7 Seconds (23.7-30.8); PROTHROMBIN TIME 21.5 Seconds (9.9-11.8)
[2016-09-26] MEDS: Metoprolol Succinate 50 mg XL Tab PO SCH (08:03)
[2016-09-26 08:09] LABS: BASO # 0.08 K/mm3 (0.0-2.0); BASO % 1.1 % (0.0-3.0); EOS # 0.1 (0.0-0.7); EOS % 1.3 % (1.5-5.0); GRAN # 4.21 (1.4-6.5); GRAN % 59.6 % (50.0-68.0); HEMOGLOBIN 11.8 gm/dL (12.0-16.0); LYMPH # 1.9 (1.2-3.4); LYMPH % 27.5 % (22.0-35.0); MEAN CELL VOLUME 93.6 fL (80.0-105.0); MEAN CORPUSCULAR HEMOGLOBIN 30.1 pg (25.0-35.0); MEAN CORPUSCULAR HGB CONC 32.2 g/dl (31.0-37.0); MONO # 0.7 (0.1-0.6); MONO % 10.5 % (1.0-6.0); PLATELET COUNT 143 10^3/uL (120.0-450.0); RBC 3.92 10^6/uL (3.5-6.1); WHITE BLOOD COUNT 7.1 10^3/ul (4.5-11.0)
[2016-09-26] MEDS ORDERED: Milrinone 20mg/100ml D5W 100 ML IV PRN (09:00)
[2016-09-26 09:11] LABS: ALBUMIN 3.5 g/dL (3.0-4.8); CALCIUM 9.7 mg/dL (8.4-10.5)
[2016-09-26] MEDS: Potassium Chloride 20 mEq ER Tab PO SCH ×2 (09:38→17:15)
--- NOTE | 2016-09-26 11:59 | CP.PCM.PN ---
<BRITNI DAMON - Last Filed: 09/26/16 15:38> Subjective - Date & Time of Evaluation Date of Evaluation: 09/26/16 Time of Evaluation: 08:00 - Subjective Subjective: Medicine Progress Note: Pt seen and assessed at bedside. Pt had no new complaints at todays visit. She does report that she had an episode overnight where it was hard to catch her breath but that this is a chronic night-time problem for her and has since resolved requiring no intervention. Pt denies headache, fever, changes in vision , chest pain, palpitations, shortness of breath, abdominal pain, N/V, or diarrhea. Objective - Vital Signs/Intake and Output Vital Signs (last 24 hours): Temp Pulse Resp BP Pulse Ox 98.2 F 68 18 133/69 98 09/26/16 06:00 09/26/16 10:00 09/26/16 06:00 09/26/16 09:37 09/26/16 06:00 Intake and Output: 09/26/16 09/26/16 06:59 18:59 Intake Total 155 120 Output Total 400 Balance 155 -280 - Medications Medications: Current Medications Digoxin (Lanoxin) 0.125 mg PO 1400 [facility] Last Admin: 09/25/16 13:37 Dose: 0.125 mg Furosemide (Lasix) 40 mg IVP Q12 [facility] Last Admin: 09/26/16 09:37 Dose: 40 mg Guaifenesin (Robitussin) 100 mg PO Q4H PRN PRN Reason: Cough Milrinone Lactate/Dextrose (Primacor 20mg/100ml D5w) 100 mls @ 5.783 mls/hr IV .[id number] PRN; 0.25 MCG/KG/MIN PRN Reason: TITRATE PER MD ORDER Last Admin: 09/26/16 09:35 Dose: 5.783 mls/hr Isosorbide Mononitrate (Imdur) 60 mg PO 0600 [facility] Last Admin: 09/26/16 05:07 Dose: 60 mg Levothyroxine Sodium (Synthroid) 112 mcg PO 0600 [facility] Last Admin: 09/26/16 05:07 Dose: 112 mcg Losartan Potassium (Cozaar) 100 mg PO DAILY [facility] Last Admin: 09/26/16 09:38 Dose: 100 mg Metoprolol Succinate (Toprol Xl) 50 mg PO BRK [facility] Last Admin: 09/26/16 08:03 Dose: 50 mg Pantoprazole Sodium (Protonix Ec Tab) 40 mg PO 0600 [facility] Last Admin: 09/26/16 05:07 Dose: 40 mg Potassium Chloride (K-Dur 20 Meq Er Tab) 30 meq PO BID [facility] Last Admin: 09/26/16 09:38 Dose: 30 meq Warfarin Sodium (Coumadin) 5 mg PO 1800 [facility] PRN Reason: Protocol - Labs Labs: 09/26/16 07:30 09/26/16 07:30 PT 21.5 Seconds (9.9-11.8) H 09/26/16 07:00 INR 1.99 (0.93-1.08) H 09/26/16 07:00 APTT 37.7 Seconds (23.7-30.8) H 09/26/16 07:00 - Constitutional Appears: No Acute Distress - Head Exam Head Exam: NORMAL INSPECTION, NORMOCEPHALIC - Eye Exam Eye Exam: EOMI, Normal appearance - ENT Exam ENT Exam: Mucous Membranes Moist, Normal Exam - Neck Exam Neck Exam: Full ROM - Respiratory Exam Respiratory Exam: Clear to Ausculation Bilateral, NORMAL BREATHING PATTERN. absent: Rales, Rhonchi, Wheezes, Respiratory Distress - Cardiovascular Exam Cardiovascular Exam: REGULAR RHYTHM, +S1, +S2, Murmur. absent: JVD - GI/Abdominal Exam GI & Abdominal Exam: Normal Bowel Sounds. absent: Distended, Guarding, Tenderness - Extremities Exam Extremities Exam: Normal Capillary Refill, Pedal Edema. absent: Calf Tenderness , Tenderness Additional comments: +1 pitting pedal edema bilaterally extending to ankles - Neurological Exam Neurological Exam: Alert, Awake, Oriented x3 - Psychiatric Exam Psychiatric exam: Normal Affect, Normal Mood - Skin Skin Exam: Dry, Intact, Normal Color, Warm Assessment and Plan - Assessment and Plan (Free Text) Assessment: Mrs. Barlow is an 86 year old female with a past medical history of systolic heart failure, atrial fibrillation, and hypothyroidism presenting with complaints of shortness of breath and bilateral lower leg swelling for a few weeks. Plan: 1. CHF Exacerbation -Cardiology ([facility]) consulted, all recommendations appreciated ([facility] follows patient in clinic); f/u recommendations -EKG showed atrial sensed, ventricular paced rhythm, and PVC's -Chest XRay showed right pleural effusion and possible atelectasis in right lung base -U/S Doppler showed no active DVT's -cont IV Lasix 40mg Q12, Digoxin, Cozaar, Toprol -Heart healthy diet and strict I's and O's -PT/OT evaluation and treatment when clinically appropriate -cont telemetry monitoring 2. History of Atrial Fibrillation -cont home amiodarone and milrinone -cont Coumadin 5mg -DC Therapeutic Lovenox with INR of 1.99 today -will monitor and adjust AC regiment accordingly 3. Hypokalemia -acutely improved with K+ 4.6 -cont home KCl for supplementation given on lasix 4. History of Hypothyroidism -cont home synthroid 5. DNR/DNI Status -discussed with patient -states that she wants to be "comfortable" but does not want to be resuscitated or intubated -will obtain proper documentation and place in chart 6. GI/DVT Prohpylaxis -Protonix/Coumadin Patient seen and case discussed in detail with attending, Dr. Guerrero. <Marvin Guerrero - Last Filed: 09/26/16 16:11> Objective - Vital Signs/Intake and Output Vital Signs (last 24 hours): Temp Pulse Resp BP Pulse Ox 97.5 F L 72 18 133/64 98 09/26/16 12:00 09/26/16 14:00 09/26/16 12:00 09/26/16 12:00 09/26/16 06:00 Intake and Output: 09/26/16 09/26/16 06:59 18:59 Intake Total 155 480 Output Total 800 Balance 155 -320 - Medications Medications: Current Medications Digoxin (Lanoxin) 0.125 mg PO 1400 [facility] Last Admin: 09/26/16 13:00 Dose: 0.125 mg Furosemide (Lasix) 40 mg IVP Q12 [facility] Last Admin: 09/26/16 09:37 Dose: 40 mg Guaifenesin (Robitussin) 100 mg PO Q4H PRN PRN Reason: Cough Milrinone Lactate/Dextrose (Primacor 20mg/100ml D5w) 100 mls @ 5.783 mls/hr IV .[id number] PRN; 0.25 MCG/KG/MIN PRN Reason: TITRATE PER MD ORDER Last Admin: 09/26/16 09:35 Dose: 5.783 mls/hr Isosorbide Mononitrate (Imdur) 60 mg PO 0600 [facility] Last Admin: 09/26/16 05:07 Dose: 60 mg Levothyroxine Sodium (Synthroid) 112 mcg PO 0600 [facility] Last Admin: 09/26/16 05:07 Dose: 112 mcg Losartan Potassium (Cozaar) 100 mg PO DAILY [facility] Last Admin: 09/26/16 09:38 Dose: 100 mg Metoprolol Succinate (Toprol Xl) 50 mg PO BRK [facility] Last Admin: 09/26/16 08:03 Dose: 50 mg Pantoprazole Sodium (Protonix Ec Tab) 40 mg PO 0600 [facility] Last Admin: 09/26/16 05:07 Dose: 40 mg Potassium Chloride (K-Dur 20 Meq Er Tab) 30 meq PO BID [facility] Last Admin: 09/26/16 09:38 Dose: 30 meq Warfarin Sodium (Coumadin) 5 mg PO 1800 [facility] PRN Reason: Protocol - Labs Labs: 09/26/16 07:30 09/26/16 07:30 PT 21.5 Seconds (9.9-11.8) H 09/26/16 07:00 INR 1.99 (0.93-1.08) H 09/26/16 07:00 APTT 37.7 Seconds (23.7-30.8) H 09/26/16 07:00 Attending/Attestation - Attestation I have personally seen and examined this patient.: Yes I have fully participated in the care of the patient.: Yes I have reviewed all pertinent clinical information, including history, physical exam and plan: Yes Notes (Text): 09/26/16 16:08 Attending note; Patient seen and examined with resident. Patient is a 85-year-old female with a past medical history of cardiomyopathy, AICD, valvular heart disease, pulmonary hypertension, on home milrinone drip is admitted with increasing leg swelling and shortness of breath. Acute decompensated systolic heart failure on chronic CHF. continue IV Lasix. Leg swelling is improving. Shortness of breath is improving slowly. strict I's and O's. Daily weights. Cardiac diet ordered. Cardiology evaluation with appreciated. Continue milrinone drip. last echo showed EF of 9% in mar 2016.. advanced cardiomyopathy. continue digoxin, amiadarone, cozaar amd metoprolol. amiodarone stopped by cardiology. INR is 1.99. continue on Coumadin. started on lovenox bridge therapy till INR is therapeutic. General Deconditioning. physical therapy evaluation requested. Upon discharge patient will follow-up with PMD . The diagnosis and treatment discussed with patient in detail. advanced directives discussed with patient. Patient wishes for DNI DNR.
[2016-09-26] MEDS: Digoxin 125 mcg (0.125 mg) Tab PO SCH (13:00)
--- NOTE | 2016-09-26 14:23 | CON ---
DATE: 09/26/2016 CONSULTATION INDICATIONS: Shortness of breath, edema and cardiomyopathy. HISTORY OF PRESENT ILLNESS: This is an 86-year-old woman well known to me, admitted yesterday when she presented to the emergency room with several weeks of increasing shortness of breath and edema. She was seen in the office a few days earlier and declined admission at that time, but the symptoms got worst and she came to the emergency room. She did not have chest pain. There is orthopnea. There is no PND, syncope, presyncope, lightheadedness, dizziness or vertigo. There is no fever, chills, cough, sputum production, hemoptysis, abdominal pain, nausea, vomiting, diarrhea, constipation or melena. PAST MEDICAL HISTORY: Complex. She has known severe congestive cardiomyopathy with recurrent CHF class IV, on home milrinone infusion. There is a history of a defibrillator, paroxysmal atrial fibrillation, stroke, gout, hypothyroidism, and gallbladder, back and hernia surgeries. Recent echocardiography reveals severe LV dysfunction as well as severe MR, TR and pulmonary hypertension. MEDICATIONS AT THE TIME OF ADMISSION: Include home milrinone at 0.2 mcg per kilogram per minute, colchicine, Warfarin, Cozaar, Imdur, potassium chloride, Digoxin, Lasix, pantoprazole, Synthroid and metoprolol. ALLERGIES: SHE NOTES ALLERGIES TO CODEINE AND PENICILLIN. SOCIAL HISTORY: She lives at home and has assistance from her family. She does not smokes cigarettes currently, but she did remotely. She does not drink alcohol. She is ambulatory, but limited. FAMILY HISTORY: Noncontributory. REVIEW OF SYSTEMS: Ten point review of systems, otherwise unremarkable except as noted above. PHYSICAL EXAMINATION: GENERAL: She is a well-developed elderly woman, lying flat in bed on telemetry in no acute distress. VITAL SIGNS: Notable for ventricular pace rhythm at 70 beats per minute, blood pressure of 113/68, respirations of 18 to 22, and O2 saturation of 96% to 98% on nasal canula and room air. HEENT: Reveals neck pain distention. No thyromegaly. No carotid bruit. Mucous membranes are moist. Conjunctivae pale. NECK: Supple. CHEST: Lung kraus; a few rales at the bases. CARDIOPULMONARY: Examination of the heart revealed a regular rhythm with normal first and second heart sounds and systolic murmur along with left sternal border. The PMI is displaced laterally. ABDOMEN: Soft and bowel sounds are present. No mass or organomegaly, tenderness, rebound or guarding. No CVA tenderness. No palpable abdominal aortic aneurysm. EXTREMITIES: Examination revealed cyanosis. There is 2+ lower extremity edema to the shins. NEUROLOGIC: Awake, alert and oriented. PSYCHIATRIC: Normal to less than mood and affect. SKIN: Warm and dry. No rashes or cellulitis. LABORATORY AND IMAGING DATA: A chest x-ray; a portable study reveals small right pleural effusion, probable subsegmental atelectasis at right base. EKG reveals a ventricular paced rhythm, atrial sensed. White count is normal, platelet count is normal, hemoglobin is 10.6, and hematocrit is 33.2. PT is 16.1, repeat 21.5. INR is 1.49, repeat 1.99. PTT is 28.9, repeat 37.7. Electrolytes are normal with the potassium of 3.4. BUN of 30, and creatinine of 1.4. LFT's are unremarkable. CK of 41, troponin of 0.06, and BNP of 4000. Digoxin level is 1.3. 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 PLAN: I agreed with current plans. At this point, I will increase her milrinone to 0.25 mcg/kg per minute. She will get IV Lasix 40 mg IV q. 12 h. I will increase her p.o. potassium supplementation. We will monitor I's and O's and daily weights. She can be out of bed to chair. I will review her old records. I will continue her usual medications including warfarin at 5 mg daily and monitor INRs daily. She will continue to get Cozaar, isosorbide, Digoxin, Protonix, Synthroid, and metoprolol. At this point, she does not want to take amiodarone. She has had ventricular tachycardia in the past as well as paroxysmal atrial fibrillation. This may have to be reinstituted, but at the moment, she is reluctant. I will follow along with you and I will make additional recommendation based on a clinical course. Juan Jose Alcantara MD [facility] # [id number] [facility]
[2016-09-27] MEDS: Levothyroxine 112 MCG TAB PO SCH (05:22)
[2016-09-27] MEDS: Pantoprazole 40 mg EC Tab PO SCH (05:22)
[2016-09-27] MEDS: Metoprolol Succinate 50 mg XL Tab PO SCH (07:46)
[2016-09-27 07:51] LABS: BASO # 0.05 K/mm3 (0.0-2.0); BASO % 0.8 % (0.0-3.0); EOS # 0.1 (0.0-0.7); EOS % 1.8 % (1.5-5.0); GRAN # 4.22 (1.4-6.5); HEMOGLOBIN 10.9 gm/dL (12.0-16.0); LYMPH # 1.5 (1.2-3.4); LYMPH % 22.8 % (22.0-35.0); MEAN CELL VOLUME 92.5 fL (80.0-105.0); MEAN CORPUSCULAR HEMOGLOBIN 30.1 pg (25.0-35.0); MEAN CORPUSCULAR HGB CONC 32.5 g/dl (31.0-37.0); MEAN PLATELET VOLUME 11.5 fl (7.0-11.0); MONO # 0.7 (0.1-0.6); MONO % 10.6 % (1.0-6.0); PLATELET COUNT 155 10^3/uL (120.0-450.0); RBC 3.62 10^6/uL (3.5-6.1); RED CELL DISTRIBUTION WIDTH 16.5 % (11.5-14.5); WHITE BLOOD COUNT 6.6 10^3/ul (4.5-11.0)
[2016-09-27 08:01] LABS: INR 2.49 (0.93-1.08); PROTHROMBIN TIME 26.9 Seconds (9.9-11.8)
[2016-09-27 08:11] LABS: ALB/GLOB RATIO 0.9 (1.1-1.8); ALBUMIN 3.5 g/dL (3.0-4.8); CALCIUM 9.2 mg/dL (8.4-10.5); MAGNESIUM 1.7 mg/dL (1.7-2.2)
--- NOTE | 2016-09-27 08:32 | CP.PCM.PN ---
Subjective - Date & Time of Evaluation Date of Evaluation: 09/27/16 Time of Evaluation: 07:00 - Subjective Subjective: Stable on 2R. No CP or SOB but "restless" around 2 or 3 AM. V/S noted. V. Paced. PE Lungs: rhonchi Cor.: S1S2 Abd.: soft Ext.: decreased edema Neuro.: alert urine out: 1300 cc. Labs noted: INR 2.49, Cr. 1.3 Objective - Vital Signs/Intake and Output Vital Signs (last 24 hours): Temp Pulse Resp BP Pulse Ox 97.5 F L 79 18 134/69 95 09/27/16 06:00 09/27/16 07:46 09/27/16 06:00 09/27/16 07:46 09/27/16 06:00 Intake and Output: 09/27/16 09/27/16 06:59 18:59 Intake Total 680 Output Total 300 Balance 380 - Medications Medications: Current Medications Digoxin (Lanoxin) 0.125 mg PO 1400 [facility] Last Admin: 09/26/16 13:00 Dose: 0.125 mg Furosemide (Lasix) 40 mg IVP Q12 [facility] Last Admin: 09/26/16 20:59 Dose: 40 mg Guaifenesin (Robitussin) 100 mg PO Q4H PRN PRN Reason: Cough Milrinone Lactate/Dextrose (Primacor 20mg/100ml D5w) 100 mls @ 5.783 mls/hr IV .[id number] PRN; 0.25 MCG/KG/MIN PRN Reason: TITRATE PER MD ORDER Last Admin: 09/26/16 20:58 Dose: 5.783 mls/hr Isosorbide Mononitrate (Imdur) 60 mg PO 0600 [facility] Last Admin: 09/27/16 05:22 Dose: 60 mg Levothyroxine Sodium (Synthroid) 112 mcg PO 0600 [facility] Last Admin: 09/27/16 05:22 Dose: 112 mcg Losartan Potassium (Cozaar) 100 mg PO DAILY [facility] Last Admin: 09/26/16 09:38 Dose: 100 mg Metolazone (Zaroxolyn) 2.5 mg PO ONCE ONE Stop: 09/27/16 09:01 Metoprolol Succinate (Toprol Xl) 50 mg PO BRK [facility] Last Admin: 09/27/16 07:46 Dose: 50 mg Pantoprazole Sodium (Protonix Ec Tab) 40 mg PO 0600 [facility] Last Admin: 09/27/16 05:22 Dose: 40 mg Potassium Chloride (K-Dur 20 Meq Er Tab) 30 meq PO BID [facility] Last Admin: 09/26/16 17:15 Dose: 30 meq Warfarin Sodium (Coumadin) 5 mg PO 1800 [facility] PRN Reason: Protocol Last Admin: 09/26/16 17:15 Dose: 5 mg - Labs Labs: 09/27/16 07:30 09/27/16 07:30 PT 26.9 Seconds (9.9-11.8) H 09/27/16 07:30 INR 2.49 (0.93-1.08) H 09/27/16 07:30 APTT 37.7 Seconds (23.7-30.8) H 09/26/16 07:00 Assessment and Plan - Assessment and Plan (Free Text) Assessment: Dyspnea and edema CMP with severe LVD, home milrinone CHF IV VT/ICD PAF Echo: severe LVD, severe MR, TR and PH CVA Gout Hypothyroidism Surgeries: Back, GB and Hernia Plan: Add metolazone today Continue IV Lasix, IV milrinone at 0.25 ug./Kg./min. OOB as mireille/PT Monitor labs, I/O, sats., K, etc. Will follow.
[2016-09-27] MEDS ORDERED: metOLazone 2.5 MG TAB PO ONE (09:00)
[2016-09-27] MEDS: Potassium Chloride 20 mEq ER Tab PO SCH (09:19)
--- NOTE | 2016-09-27 11:21 | CP.PCM.PN ---
<BRITNI DAMON - Last Filed: 09/27/16 11:18> Subjective - Date & Time of Evaluation Date of Evaluation: 09/27/16 Time of Evaluation: 07:30 - Subjective Subjective: Medicine Progress Note: Pt seen and assessed at bedside. Pt had no new complaints at todays visit. She reports that her leg swelling has "gone down" now that she is sitting in her chair and elevating her legs more. Pt denies headache, fever, changes in vision , chest pain, palpitations, shortness of breath, abdominal pain, N/V, or diarrhea. Objective - Vital Signs/Intake and Output Vital Signs (last 24 hours): Temp Pulse Resp BP Pulse Ox 97.5 F L 69 18 122/64 95 09/27/16 06:00 09/27/16 10:00 09/27/16 06:00 09/27/16 09:19 09/27/16 06:00 Intake and Output: 09/27/16 09/27/16 06:59 18:59 Intake Total 680 Output Total 300 Balance 380 - Medications Medications: Current Medications Digoxin (Lanoxin) 0.125 mg PO 1400 [facility] Last Admin: 09/26/16 13:00 Dose: 0.125 mg Furosemide (Lasix) 40 mg IVP Q12 [facility] Last Admin: 09/27/16 09:19 Dose: 40 mg Guaifenesin (Robitussin) 100 mg PO Q4H PRN PRN Reason: Cough Milrinone Lactate/Dextrose (Primacor 20mg/100ml D5w) 100 mls @ 5.783 mls/hr IV .[id number] PRN; 0.25 MCG/KG/MIN PRN Reason: TITRATE PER MD ORDER Last Admin: 09/26/16 20:58 Dose: 5.783 mls/hr Isosorbide Mononitrate (Imdur) 60 mg PO 0600 [facility] Last Admin: 09/27/16 05:22 Dose: 60 mg Levothyroxine Sodium (Synthroid) 112 mcg PO 0600 [facility] Last Admin: 09/27/16 05:22 Dose: 112 mcg Losartan Potassium (Cozaar) 100 mg PO DAILY [facility] Last Admin: 09/27/16 09:19 Dose: 100 mg Metoprolol Succinate (Toprol Xl) 50 mg PO BRK [facility] Last Admin: 09/27/16 07:46 Dose: 50 mg Pantoprazole Sodium (Protonix Ec Tab) 40 mg PO 0600 [facility] Last Admin: 09/27/16 05:22 Dose: 40 mg Potassium Chloride (K-Dur 20 Meq Er Tab) 30 meq PO BID [facility] Last Admin: 09/27/16 09:19 Dose: 30 meq Warfarin Sodium (Coumadin) 5 mg PO 1800 [facility] PRN Reason: Protocol Last Admin: 09/26/16 17:15 Dose: 5 mg - Labs Labs: 09/27/16 07:30 09/27/16 07:30 PT 26.9 Seconds (9.9-11.8) H 09/27/16 07:30 INR 2.49 (0.93-1.08) H 09/27/16 07:30 APTT 37.7 Seconds (23.7-30.8) H 09/26/16 07:00 - Constitutional Appears: No Acute Distress - Head Exam Head Exam: NORMAL INSPECTION - Eye Exam Eye Exam: EOMI, Normal appearance - ENT Exam ENT Exam: Mucous Membranes Moist, Normal Exam - Neck Exam Neck Exam: Full ROM - Respiratory Exam Respiratory Exam: Rhonchi, NORMAL BREATHING PATTERN. absent: Rales, Wheezes, Respiratory Distress Additional comments: Lower and middle right lobe rhonci - Cardiovascular Exam Cardiovascular Exam: REGULAR RHYTHM, +S1, +S2, Murmur - GI/Abdominal Exam GI & Abdominal Exam: Normal Bowel Sounds. absent: Distended, Firm, Tenderness - Extremities Exam Extremities Exam: Normal Capillary Refill, Pedal Edema. absent: Calf Tenderness Additional comments: +1 pitting edema bilaterally extending to the ankle - Neurological Exam Neurological Exam: Alert, Awake, Oriented x3 - Psychiatric Exam Psychiatric exam: Normal Affect, Normal Mood - Skin Skin Exam: Dry, Intact, Normal Color, Warm Assessment and Plan - Assessment and Plan (Free Text) Assessment: Mrs. Barlow is an 86 year old female with a past medical history of systolic heart failure, atrial fibrillation, and hypothyroidism presenting with complaints of shortness of breath and bilateral lower leg swelling for a few weeks. Plan: 1. CHF Exacerbation, NYHA Stage III -Cardiology ([facility]) consulted, all recommendations appreciated ([facility] follows patient in clinic); f/u recommendations -EKG showed atrial sensed, ventricular paced rhythm, and PVC's -Chest XRay showed right pleural effusion and possible atelectasis in right lung base -U/S Doppler showed no active DVT's -cont IV Lasix 40mg Q12, Digoxin, Cozaar, Toprol -start aldactone 25mg daily for NYHA Stage III CHF -milirinone dosage increased to 0.25, per cardiology -Heart healthy diet and strict I's and O's -PT/OT evaluation and treatment -cont telemetry monitoring 2. History of Atrial Fibrillation -cont home amiodarone -cont Coumadin 5mg; INR of 2.49 today -will monitor and adjust AC regiment accordingly 3. Hypokalemia -acutely improved with K+ 4.4 -holding home KCl with the start of new medication aldactone, which spares K+ -will cont to monitor with daily CMP's 4. History of Hypothyroidism -cont home synthroid 5. DNR/DNI Status -discussed with patient -states that she wants to be "comfortable" but does not want to be resuscitated or intubated -will obtain proper documentation and place in chart 6. GI/DVT Prohpylaxis -Protonix/Coumadin Patient seen and case discussed in detail with attending, Dr. Guerrero. <Marvin Guerrero - Last Filed: 09/27/16 15:12> Objective - Vital Signs/Intake and Output Vital Signs (last 24 hours): Temp Pulse Resp BP Pulse Ox 97.6 F 67 18 144/77 95 09/27/16 12:00 09/27/16 12:00 09/27/16 12:00 09/27/16 12:00 09/27/16 06:00 - Medications Medications: Current Medications Digoxin (Lanoxin) 0.125 mg PO 1400 [facility] Last Admin: 09/27/16 13:39 Dose: 0.125 mg Furosemide (Lasix) 40 mg IVP Q12 [facility] Last Admin: 09/27/16 09:19 Dose: 40 mg Guaifenesin (Robitussin) 100 mg PO Q4H PRN PRN Reason: Cough Milrinone Lactate/Dextrose (Primacor 20mg/100ml D5w) 100 mls @ 5.783 mls/hr IV .[id number] PRN; 0.25 MCG/KG/MIN PRN Reason: TITRATE PER MD ORDER Last Admin: 09/26/16 20:58 Dose: 5.783 mls/hr Isosorbide Mononitrate (Imdur) 60 mg PO 0600 [facility] Last Admin: 09/27/16 05:22 Dose: 60 mg Levothyroxine Sodium (Synthroid) 112 mcg PO 0600 [facility] Last Admin: 09/27/16 05:22 Dose: 112 mcg Losartan Potassium (Cozaar) 100 mg PO DAILY [facility] Last Admin: 09/27/16 09:19 Dose: 100 mg Metoprolol Succinate (Toprol Xl) 50 mg PO BRK [facility] Last Admin: 09/27/16 07:46 Dose: 50 mg Pantoprazole Sodium (Protonix Ec Tab) 40 mg PO 0600 [facility] Last Admin: 09/27/16 05:22 Dose: 40 mg Potassium Chloride (K-Dur 20 Meq Er Tab) 30 meq PO BID [facility] Last Admin: 09/27/16 09:19 Dose: 30 meq Spironolactone (Aldactone) 25 mg PO DAILY [facility] Warfarin Sodium (Coumadin) 5 mg PO 1800 [facility] PRN Reason: Protocol Last Admin: 09/26/16 17:15 Dose: 5 mg - Labs Labs: PT 26.9 Seconds (9.9-11.8) H 09/27/16 07:30 INR 2.49 (0.93-1.08) H 09/27/16 07:30 APTT 37.7 Seconds (23.7-30.8) H 09/26/16 07:00 Attending/Attestation - Attestation I have personally seen and examined this patient.: Yes I have fully participated in the care of the patient.: Yes I have reviewed all pertinent clinical information, including history, physical exam and plan: Yes Notes (Text): 09/27/16 14:50 Attending note; Patient seen and examined with resident. Patient is a 85-year-old female with a past medical history of cardiomyopathy, AICD, valvular heart disease, pulmonary hypertension, on home milrinone drip is admitted with increasing leg swelling and shortness of breath. Acute decompensated systolic heart failure on chronic CHF. continue IV Lasix. Leg swelling is improving. Shortness of breath is improving slowly. Cardiology evaluation with appreciated. Continue milrinone drip. last echo showed EF of 9% in mar 2016. advanced cardiomyopathy. continue digoxin, cozaar and metoprolol. INR is therapeutic . continue on Coumadin. General Deconditioning. physical therapy evaluation appreciated. TCU evaluation requested. Upon discharge patient will follow-up with PMD . The diagnosis and treatment discussed with patient in detail. Patient is DNI DNR.
[2016-09-27] MEDS: Digoxin 125 mcg (0.125 mg) Tab PO SCH (13:39)
[2016-09-27] MEDS: Milrinone 20mg/100ml D5W 100 ML IV PRN (15:53)
[2016-09-28] MEDS: Levothyroxine 112 MCG TAB PO SCH (05:26)
[2016-09-28] MEDS: Pantoprazole 40 mg EC Tab PO SCH (05:27)
[2016-09-28 05:46] LABS: BASO # 0.04 K/mm3 (0.0-2.0); BASO % 0.6 % (0.0-3.0); EOS # 0.3 (0.0-0.7); EOS % 4.8 % (1.5-5.0); GRAN # 4.16 (1.4-6.5); GRAN % 60.1 % (50.0-68.0); HEMOGLOBIN 10.5 gm/dL (12.0-16.0); LYMPH # 1.7 (1.2-3.4); LYMPH % 24.1 % (22.0-35.0); MEAN CELL VOLUME 92.1 fL (80.0-105.0); MEAN CORPUSCULAR HEMOGLOBIN 29.7 pg (25.0-35.0); MEAN CORPUSCULAR HGB CONC 32.3 g/dl (31.0-37.0); MEAN PLATELET VOLUME 11.1 fl (7.0-11.0); MONO # 0.7 (0.1-0.6); MONO % 10.4 % (1.0-6.0); PLATELET COUNT 157 10^3/uL (120.0-450.0); RBC 3.53 10^6/uL (3.5-6.1); RED CELL DISTRIBUTION WIDTH 16.5 % (11.5-14.5); WHITE BLOOD COUNT 6.9 10^3/ul (4.5-11.0)
[2016-09-28 05:57] LABS: INR 2.43 (0.93-1.08); PROTHROMBIN TIME 26.2 Seconds (9.9-11.8)
[2016-09-28 06:15] LABS: ALB/GLOB RATIO 0.9 (1.1-1.8); ALBUMIN 3.3 g/dL (3.0-4.8); CALCIUM 9.3 mg/dL (8.4-10.5); MAGNESIUM 1.7 mg/dL (1.7-2.2)
[2016-09-28] MEDS: Milrinone 20mg/100ml D5W 100 ML IV PRN (07:05)
--- NOTE | 2016-09-28 08:23 | CP.PCM.PN ---
Subjective - Date & Time of Evaluation Date of Evaluation: 09/28/16 Time of Evaluation: 07:00 - Subjective Subjective: Stable on 2R. No CP or SOB. Less edema. V/S noted. V. Paced. PE Lungs: rhonchi Cor.: S1S2 Abd.: soft Ext.: decreased edema Neuro.: alert urine out: 2300 cc. (paper record, not recorded in EHR) Labs noted: INR 2.43, Cr. 1.4, K= 4.1 Objective - Vital Signs/Intake and Output Vital Signs (last 24 hours): Temp Pulse Resp BP Pulse Ox 98.1 F 66 18 127/57 L 100 09/28/16 06:00 09/28/16 07:05 09/28/16 06:00 09/28/16 07:05 09/28/16 06:00 Intake and Output: 09/28/16 09/28/16 06:59 18:59 Intake Total 450 Output Total 400 Balance 50 - Medications Medications: Current Medications Digoxin (Lanoxin) 0.125 mg PO 1400 [facility] Last Admin: 09/27/16 13:39 Dose: 0.125 mg Furosemide (Lasix) 40 mg IVP Q12 [facility] Last Admin: 09/27/16 21:57 Dose: 40 mg Guaifenesin (Robitussin) 100 mg PO Q4H PRN PRN Reason: Cough Milrinone Lactate/Dextrose (Primacor 20mg/100ml D5w) 100 mls @ 5.783 mls/hr IV .[id number] PRN; 0.25 MCG/KG/MIN PRN Reason: TITRATE PER MD ORDER Last Admin: 09/28/16 07:05 Dose: 5.783 mls/hr Isosorbide Mononitrate (Imdur) 60 mg PO 0600 [facility] Last Admin: 09/28/16 05:27 Dose: 60 mg Levothyroxine Sodium (Synthroid) 112 mcg PO 0600 [facility] Last Admin: 09/28/16 05:26 Dose: 112 mcg Losartan Potassium (Cozaar) 100 mg PO DAILY [facility] Last Admin: 09/27/16 09:19 Dose: 100 mg Metolazone (Zaroxolyn) 2.5 mg PO ONCE ONE Stop: 09/28/16 09:01 Metoprolol Succinate (Toprol Xl) 50 mg PO BRK [facility] Last Admin: 09/27/16 07:46 Dose: 50 mg Pantoprazole Sodium (Protonix Ec Tab) 40 mg PO 0600 [facility] Last Admin: 09/28/16 05:27 Dose: 40 mg Potassium Chloride (K-Dur 20 Meq Er Tab) 30 meq PO BID [facility] Last Admin: 09/27/16 09:19 Dose: 30 meq Warfarin Sodium (Coumadin) 5 mg PO 1800 [facility] PRN Reason: Protocol Last Admin: 09/27/16 18:31 Dose: 5 mg - Labs Labs: 09/28/16 05:20 09/28/16 05:20 PT 26.2 Seconds (9.9-11.8) H 09/28/16 05:20 INR 2.43 (0.93-1.08) H 09/28/16 05:20 APTT 37.7 Seconds (23.7-30.8) H 09/26/16 07:00 Assessment and Plan - Assessment and Plan (Free Text) Assessment: Dyspnea and edema CMP with severe LVD, home milrinone CHF IV VT/ICD PAF Echo: severe LVD, severe MR, TR and PH CVA Gout Hypothyroidism Surgeries: Back, GB and Hernia Plan: Metolazone 2.5 mg. PO today Continue IV Lasix, IV milrinone at 0.25 ug./Kg./min. PO KCL. D/C spironolactone OOB as mireille/PT Monitor labs, I/O, sats., K, etc. Will follow.
[2016-09-28] MEDS: Metoprolol Succinate 50 mg XL Tab PO SCH (08:48)
[2016-09-28] MEDS ORDERED: metOLazone 2.5 MG TAB PO ONE (09:00)
[2016-09-28] MEDS: Potassium Chloride 20 mEq ER Tab PO SCH ×2 (09:40→17:04)
[2016-09-28] MEDS: Digoxin 125 mcg (0.125 mg) Tab PO SCH (13:36)
--- NOTE | 2016-09-28 14:25 | CP.PCM.PN ---
<BRITNI DAMON - Last Filed: 09/28/16 14:20> Subjective - Date & Time of Evaluation Date of Evaluation: 09/28/16 Time of Evaluation: 09:00 - Subjective Subjective: Medicine Progress Note: Pt seen and assessed with patient sitting upright with lower extremities elevated in chair. Pt had no new complaints at todays visit. She reports that her leg swelling has "gone down" and she has had no new difficulty breathing. Pt denies headache, fever, changes in vision, chest pain, palpitations, shortness of breath, abdominal pain, N/V, constipation or diarrhea. Objective - Vital Signs/Intake and Output Vital Signs (last 24 hours): Temp Pulse Resp BP Pulse Ox 97.4 F L 61 20 130/59 L 100 09/28/16 12:00 09/28/16 12:00 09/28/16 12:00 09/28/16 12:00 09/28/16 06:00 Intake and Output: 09/28/16 09/28/16 06:59 18:59 Intake Total 450 Output Total 400 Balance 50 - Medications Medications: Current Medications Digoxin (Lanoxin) 0.125 mg PO 1400 [facility] Last Admin: 09/28/16 13:36 Dose: 0.125 mg Furosemide (Lasix) 40 mg IVP Q12 [facility] Last Admin: 09/28/16 09:38 Dose: 40 mg Guaifenesin (Robitussin) 100 mg PO Q4H PRN PRN Reason: Cough Milrinone Lactate/Dextrose (Primacor 20mg/100ml D5w) 100 mls @ 5.783 mls/hr IV .[id number] PRN; 0.25 MCG/KG/MIN PRN Reason: TITRATE PER MD ORDER Last Admin: 09/28/16 07:05 Dose: 5.783 mls/hr Isosorbide Mononitrate (Imdur) 60 mg PO 0600 [facility] Last Admin: 09/28/16 05:27 Dose: 60 mg Levothyroxine Sodium (Synthroid) 112 mcg PO 0600 [facility] Last Admin: 09/28/16 05:26 Dose: 112 mcg Losartan Potassium (Cozaar) 100 mg PO DAILY [facility] Last Admin: 09/28/16 09:38 Dose: 100 mg Metoprolol Succinate (Toprol Xl) 50 mg PO BRK [facility] Last Admin: 09/28/16 08:48 Dose: 50 mg Pantoprazole Sodium (Protonix Ec Tab) 40 mg PO 0600 [facility] Last Admin: 09/28/16 05:27 Dose: 40 mg Potassium Chloride (K-Dur 20 Meq Er Tab) 30 meq PO BID [facility] Last Admin: 09/28/16 09:40 Dose: Not Given Warfarin Sodium (Coumadin) 5 mg PO 1800 [facility] PRN Reason: Protocol Last Admin: 09/27/16 18:31 Dose: 5 mg - Labs Labs: 09/28/16 05:20 09/28/16 05:20 PT 26.2 Seconds (9.9-11.8) H 09/28/16 05:20 INR 2.43 (0.93-1.08) H 09/28/16 05:20 APTT 37.7 Seconds (23.7-30.8) H 09/26/16 07:00 - Constitutional Appears: No Acute Distress - Head Exam Head Exam: NORMAL INSPECTION, NORMOCEPHALIC - Eye Exam Eye Exam: EOMI, Normal appearance - ENT Exam ENT Exam: Mucous Membranes Moist, Normal Exam - Neck Exam Neck Exam: Full ROM. absent: Lymphadenopathy - Respiratory Exam Respiratory Exam: Rhonchi, NORMAL BREATHING PATTERN. absent: Rales, Wheezes, Respiratory Distress, Stridor Additional comments: rhochorous breath sounds in R lower and middle lobes; L lung with clear breath sounds - Cardiovascular Exam Cardiovascular Exam: REGULAR RHYTHM, RRR, +S1, +S2. absent: Bradycardia, Tachycardia, Murmur - GI/Abdominal Exam GI & Abdominal Exam: Soft, Normal Bowel Sounds. absent: Distended, Firm, Guarding, Tenderness - Extremities Exam Extremities Exam: Full ROM, Normal Capillary Refill, Pedal Edema. absent: Calf Tenderness Additional comments: +1 pitting edema of bilateral lower extremities; stable from previous exam - Neurological Exam Neurological Exam: Alert, Awake, Oriented x3 - Psychiatric Exam Psychiatric exam: Normal Affect, Normal Mood - Skin Skin Exam: Dry, Intact, Normal Color, Warm Additional comments: R chest wall portacath in place with no signs of infection Assessment and Plan - Assessment and Plan (Free Text) Assessment: Mrs. Barlow is an 86 year old female with a past medical history of systolic heart failure, atrial fibrillation, and hypothyroidism presenting with complaints of shortness of breath and bilateral lower leg swelling for a few weeks. Plan: 1. CHF Exacerbation, NYHA Stage III -Cardiology ([facility]) consulted, all recommendations appreciated ([facility] follows patient in clinic); f/u recommendations -EKG showed atrial sensed, ventricular paced rhythm, and PVC's -Chest XRay showed right pleural effusion and possible atelectasis in right lung base -U/S Doppler showed no active DVT's -cont IV Lasix 40mg Q12, Digoxin, Cozaar, Toprol -D/C aldactone and restart PO KCl, per cardiology -milirinone dosage increased to 0.25, per cardiology -Heart healthy diet and strict I's and O's; patient with 2300cc of UOP per paper chart reports -PT/OT recommends TCU upon discharge -/CM reports sending TCU evaluation this AM (09/28) -cont telemetry monitoring 2. History of Atrial Fibrillation -cont home amiodarone -cont Coumadin 5mg; INR of 2.43 today -will monitor and adjust AC regiment accordingly 3. Hypokalemia -acutely improved with K+ 4.1 -restart PO KCl, per cardiology -will cont to monitor with daily CMP's 4. History of Hypothyroidism -cont home synthroid 5. DNR/DNI Status -discussed with patient and obtained her wished verbally -states that she wants to be "comfortable" but does not want to be resuscitated or intubated -F/U proper documentation to place in chart 6. GI/DVT Prohpylaxis -Protonix/Coumadin Patient seen and case discussed in detail with attending, Dr. Lopez. <Jessica GALLARDO,Eloise - Last Filed: 09/28/16 17:36> Objective - Vital Signs/Intake and Output Vital Signs (last 24 hours): Temp Pulse Resp BP Pulse Ox 97.4 F L 60 20 130/59 L 100 09/28/16 12:00 09/28/16 14:00 09/28/16 12:00 09/28/16 12:00 09/28/16 06:00 Intake and Output: 09/28/16 09/28/16 06:59 18:59 Intake Total 450 Output Total 400 Balance 50 - Medications Medications: Current Medications Digoxin (Lanoxin) 0.125 mg PO 1400 [facility] Last Admin: 09/28/16 13:36 Dose: 0.125 mg Furosemide (Lasix) 40 mg IVP Q12 [facility] Last Admin: 09/28/16 09:38 Dose: 40 mg Guaifenesin (Robitussin) 100 mg PO Q4H PRN PRN Reason: Cough Milrinone Lactate/Dextrose (Primacor 20mg/100ml D5w) 100 mls @ 5.783 mls/hr IV .[id number] PRN; 0.25 MCG/KG/MIN PRN Reason: TITRATE PER MD ORDER Last Admin: 09/28/16 07:05 Dose: 5.783 mls/hr Isosorbide Mononitrate (Imdur) 60 mg PO 0600 [facility] Last Admin: 09/28/16 05:27 Dose: 60 mg Levothyroxine Sodium (Synthroid) 112 mcg PO 0600 [facility] Last Admin: 09/28/16 05:26 Dose: 112 mcg Losartan Potassium (Cozaar) 100 mg PO DAILY [facility] Last Admin: 09/28/16 09:38 Dose: 100 mg Metoprolol Succinate (Toprol Xl) 50 mg PO BRK [facility] Last Admin: 09/28/16 08:48 Dose: 50 mg Pantoprazole Sodium (Protonix Ec Tab) 40 mg PO 0600 [facility] Last Admin: 09/28/16 05:27 Dose: 40 mg Potassium Chloride (K-Dur 20 Meq Er Tab) 30 meq PO BID [facility] Last Admin: 09/28/16 17:04 Dose: 30 meq Warfarin Sodium (Coumadin) 5 mg PO 1800 [facility] PRN Reason: Protocol Last Admin: 09/28/16 17:04 Dose: 5 mg - Labs Labs: 09/28/16 05:20 09/28/16 05:20 PT 26.2 Seconds (9.9-11.8) H 09/28/16 05:20 INR 2.43 (0.93-1.08) H 09/28/16 05:20 APTT 37.7 Seconds (23.7-30.8) H 09/26/16 07:00 Attending/Attestation - Attestation I have personally seen and examined this patient.: Yes I have fully participated in the care of the patient.: Yes I have reviewed all pertinent clinical information, including history, physical exam and plan: Yes Notes (Text): 09/28/16 17:32 Patient was seen and examined with durable medical equipment repairer. Agreed with resident assessment and plan. 86 year old female with a past medical history of systolic heart failure, atrial fibrillation, and hypothyroidism is admitted with acute on chronic systolic CHF, improving with IV lasix, Milrinone infusion, leg swelling and dyspnea is improving.Renal functions are stable. Aldactone dose can be increased if renal functions remain stable. Management plan was discussed in detail with patient Education was provided.
[2016-09-29] MEDS: Milrinone 20mg/100ml D5W 100 ML IV PRN ×2 (00:20→19:00)
[2016-09-29] MEDS: Pantoprazole 40 mg EC Tab PO SCH (06:00)
[2016-09-29] MEDS: Levothyroxine 112 MCG TAB PO SCH (06:00)
[2016-09-29 07:07] LABS: BASO # 0.05 K/mm3 (0.0-2.0); BASO % 0.7 % (0.0-3.0); EOS # 0.4 (0.0-0.7); EOS % 5.7 % (1.5-5.0); GRAN % 58.5 % (50.0-68.0); HEMOGLOBIN 10.6 gm/dL (12.0-16.0); LYMPH # 1.8 (1.2-3.4); LYMPH % 25.2 % (22.0-35.0); MEAN CORPUSCULAR HEMOGLOBIN 29.7 pg (25.0-35.0); MEAN CORPUSCULAR HGB CONC 31.9 g/dl (31.0-37.0); MEAN PLATELET VOLUME 11.3 fl (7.0-11.0); MONO # 0.7 (0.1-0.6); MONO % 9.9 % (1.0-6.0); PLATELET COUNT 165 10^3/uL (120.0-450.0); RBC 3.57 10^6/uL (3.5-6.1); RED CELL DISTRIBUTION WIDTH 16.5 % (11.5-14.5); WHITE BLOOD COUNT 7.2 10^3/ul (4.5-11.0)
[2016-09-29 07:18] LABS: CALCIUM 9.2 mg/dL (8.4-10.5); MAGNESIUM 1.6 mg/dL (1.7-2.2)
[2016-09-29] MEDS ORDERED: Magnesium Sulfate 1 gm in D5W 1 GM/100 ML BAG IVPB ONE (07:31)
[2016-09-29] MEDS: Metoprolol Succinate 50 mg XL Tab PO SCH (08:06)
[2016-09-29] MEDS: Potassium Chloride 20 mEq ER Tab PO SCH ×2 (09:46→17:01)
[2016-09-29 13:02] VITALS: PULSE 85
[2016-09-29] MEDS: Digoxin 125 mcg (0.125 mg) Tab PO SCH (13:02)
--- NOTE | 2016-09-29 18:43 | CP.PCM.PN ---
<BRITNI DAMON - Last Filed: 09/29/16 18:13> Subjective - Date & Time of Evaluation Date of Evaluation: 09/29/16 Time of Evaluation: 07:15 - Subjective Subjective: Medicine Progress Note: Pt seen and assessed at bedside. Pt reported that she has been having bilateral knee and foot pain "on and off" since shes been here but that it got worse last night. She states that she gets this pain at home from time to time and it resolves with tylenol. Pt denies headache, fever, changes in vision, chest pain , palpitations, shortness of breath, abdominal pain, N/V, constipation or diarrhea. Objective - Vital Signs/Intake and Output Vital Signs (last 24 hours): Temp Pulse Resp BP Pulse Ox 97.7 F 59 L 20 126/59 L 100 09/29/16 18:00 09/29/16 18:00 09/29/16 18:00 09/29/16 18:00 09/29/16 06:00 Intake and Output: 09/29/16 09/29/16 06:59 18:59 Intake Total 320 970 Output Total 3050 Balance 320 -2080 - Medications Medications: Current Medications Acetaminophen (Tylenol 325mg Tab) 650 mg PO Q6H PRN PRN Reason: Pain, severe (8-10) Digoxin (Lanoxin) 0.125 mg PO 1400 [facility] Last Admin: 09/29/16 13:02 Dose: 0.125 mg Furosemide (Lasix) 40 mg PO BID [facility] Guaifenesin (Robitussin) 100 mg PO Q4H PRN PRN Reason: Cough Milrinone Lactate/Dextrose (Primacor 20mg/100ml D5w) 100 mls @ 5.783 mls/hr IV .[id number] PRN; 0.25 MCG/KG/MIN PRN Reason: TITRATE PER MD ORDER Last Admin: 09/29/16 00:20 Dose: 5.783 mls/hr Isosorbide Mononitrate (Imdur) 60 mg PO 0600 [facility] Last Admin: 09/29/16 06:00 Dose: 60 mg Levothyroxine Sodium (Synthroid) 112 mcg PO 0600 [facility] Last Admin: 09/29/16 06:00 Dose: 112 mcg Losartan Potassium (Cozaar) 100 mg PO DAILY [facility] Last Admin: 09/29/16 09:46 Dose: 100 mg Metoprolol Succinate (Toprol Xl) 50 mg PO BRK [facility] Last Admin: 09/29/16 08:06 Dose: 50 mg Pantoprazole Sodium (Protonix Ec Tab) 40 mg PO 0600 [facility] Last Admin: 09/29/16 06:00 Dose: 40 mg Potassium Chloride (K-Dur 20 Meq Er Tab) 30 meq PO BID [facility] Last Admin: 09/29/16 17:01 Dose: 30 meq Warfarin Sodium (Coumadin) 5 mg PO 1800 [facility] PRN Reason: Protocol Last Admin: 09/29/16 17:01 Dose: 5 mg - Labs Labs: 09/29/16 05:00 09/29/16 06:00 PT 26.2 Seconds (9.9-11.8) H 09/28/16 05:20 INR 2.43 (0.93-1.08) H 09/28/16 05:20 APTT 37.7 Seconds (23.7-30.8) H 09/26/16 07:00 - Constitutional Appears: No Acute Distress - Head Exam Head Exam: NORMAL INSPECTION, NORMOCEPHALIC - Eye Exam Eye Exam: EOMI, Normal appearance - ENT Exam ENT Exam: Mucous Membranes Moist, Normal Exam - Neck Exam Neck Exam: Full ROM - Respiratory Exam Respiratory Exam: Rhonchi, NORMAL BREATHING PATTERN. absent: Rales, Wheezes, Respiratory Distress, Stridor Additional comments: rhonic to R lower lobe; improved from previous exam - Cardiovascular Exam Cardiovascular Exam: REGULAR RHYTHM, RRR, +S1, +S2, Murmur - GI/Abdominal Exam GI & Abdominal Exam: Normal Bowel Sounds. absent: Firm, Guarding, Tenderness - Extremities Exam Extremities Exam: Normal Capillary Refill, Pedal Edema, Tenderness. absent: Calf Tenderness Additional comments: Bilateral +1 pitting edema and tenderness of the ventral surface of the foot bilaterally as well as tenderness of both knees to palpation. Pedal pulses present. - Neurological Exam Neurological Exam: Alert, Awake, Oriented x3 - Psychiatric Exam Psychiatric exam: Normal Affect, Normal Mood - Skin Skin Exam: Dry, Intact, Normal Color, Warm Assessment and Plan - Assessment and Plan (Free Text) Assessment: Mrs. Barlow is an 86 year old female with a past medical history of systolic heart failure, atrial fibrillation, and hypothyroidism presenting with complaints of shortness of breath and bilateral lower leg swelling for a few weeks. Plan: 1. CHF Exacerbation, NYHA Stage III -Cardiology ([facility]) consulted, all recommendations appreciated ([facility] follows patient in clinic); f/u recommendations -EKG showed atrial sensed, ventricular paced rhythm, and PVC's -Chest XRay showed right pleural effusion and possible atelectasis in right lung base -U/S Doppler showed no active DVT's -IV Lasix changed from 40mg to 20mg for the PM dose on 09/29; Lasix 40mg PO BID starting 09/29 -cont milrinone drip, Digoxin, Cozaar, Toprol, KCl -Heart healthy diet and strict I's and O's; patient with 3050cc of UOP -PT/OT recommends TCU upon discharge -SW/CM reports that patient approved for TCU for 7 days; will discharge when patient had bed in TCU -cont telemetry monitoring 2. History of Atrial Fibrillation -cont home amiodarone -cont Coumadin 5mg; INR of 2.43 09/28 -will monitor and adjust AC regiment accordingly 3. Hypokalemia -acutely improved with K+ 3.9 -cont PO KCl, per cardiology -will cont to monitor with daily CMP's 4. Lower Extremity Pain -start Tylenol PRN 5. History of Hypothyroidism -cont home synthroid 6. DNR/DNI Status -discussed with patient and obtained her wished verbally -states that she wants to be "comfortable" but does not want to be resuscitated or intubated -F/U proper documentation to place in chart 7. GI/DVT Prohpylaxis -Protonix/Coumadin Patient seen and case discussed in detail with attending, Dr. Lopez. <Jessica GALLARDO,Brookevisaliajane - Last Filed: 09/30/16 15:19> Objective - Vital Signs/Intake and Output Vital Signs (last 24 hours): Temp Pulse Resp BP Pulse Ox 98 F 60 16 128/58 L 99 09/30/16 11:29 09/30/16 13:14 09/30/16 11:29 09/30/16 13:14 09/30/16 11:21 Intake and Output: 09/30/16 09/30/16 06:59 18:59 Intake Total 959 Output Total 975 Balance -16 - Labs Labs: 09/30/16 07:00 09/30/16 07:00 PT 30.0 Seconds (9.9-11.8) H 09/30/16 07:00 INR 2.78 (0.93-1.08) H 09/30/16 07:00 APTT 37.7 Seconds (23.7-30.8) H 09/26/16 07:00 Attending/Attestation - Attestation I have personally seen and examined this patient.: Yes I have fully participated in the care of the patient.: Yes I have reviewed all pertinent clinical information, including history, physical exam and plan: Yes Notes (Text): 09/30/16 15:19 Patient was seen and examined with medical lab director. Agreed with resident assessment and plan. Management plan was discussed in detail with patient Education was provided.
--- NOTE | 2016-09-29 21:26 | PN ---
DATE: 09/29/2016 SUBJECTIVE: The patient is seen lying in bed on telemetry. She complains of fatigue. She denies any dyspnea at rest. Her leg edema has improved. CURRENT MEDICATIONS: Include, intravenous milrinone, warfarin, Losartan 100 mg daily, Imdur 60 mg daily, potassium supplement, digoxin 0.125 mg daily, Lasix 20 mg b.i.d., Protonix, Synthroid, and Toprol-XL 50 mg daily. PHYSICAL EXAMINATION: GENERAL: She is a very elderly woman who appears chronically ill. VITAL SIGNS: Her blood pressure is 126/60 with pulse of 60, with ventricular pacing, respirations are 14. She is currently afebrile. HEENT: No JVD. CHEST: Diminished breath sounds at the bases. HEART: PMI displaced laterally. Very soft tones noted. ABDOMEN: Soft and nontender, normoactive bowel sounds. EXTREMITIES: Trace ankle edema. DIAGNOSTIC DATA: Potassium is 3.9. BUN and creatinine are 30 and 1.3. Magnesium is 1.6. Hemoglobin and hematocrit 10.6 and 33.2 with a white count of 7.2, platelet count 165,000. Intake and output from yesterday reportedly 250 and 1750 respectively. IMPRESSION: 1. Acute on chronic congestive heart failure, predominantly systolic. 2. 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 3. History of ventricular tachycardia, status post implantable cardioverter defibrillator implant. 4. Severe mitral regurgitation and tricuspid regurgitation. 5. Prior cerebrovascular accident. RECOMMENDATIONS: Current medications will be continued. Oral Lasix will be continued for now. There is no role for combined intravenous and oral dosing as ordered. Her overall prognosis remains poor. Comfort measures are advised. DNR order is in place. We will follow along as needed. Dino Thompson MD YEHUDA
[2016-09-30] MEDS: Levothyroxine 112 MCG TAB PO SCH (05:20)
[2016-09-30] MEDS: Pantoprazole 40 mg EC Tab PO SCH (05:21)
[2016-09-30 07:29] LABS: BASO # 0.03 K/mm3 (0.0-2.0); BASO % 0.4 % (0.0-3.0); EOS # 0.4 (0.0-0.7); EOS % 5.6 % (1.5-5.0); GRAN # 3.69 (1.4-6.5); HEMOGLOBIN 10.4 gm/dL (12.0-16.0); LYMPH # 2.2 (1.2-3.4); LYMPH % 31.2 % (22.0-35.0); MEAN CELL VOLUME 92.8 fL (80.0-105.0); MEAN CORPUSCULAR HEMOGLOBIN 29.9 pg (25.0-35.0); MEAN CORPUSCULAR HGB CONC 32.2 g/dl (31.0-37.0); MONO # 0.7 (0.1-0.6); MONO % 9.8 % (1.0-6.0); PLATELET COUNT 170 10^3/uL (120.0-450.0); RBC 3.48 10^6/uL (3.5-6.1); RED CELL DISTRIBUTION WIDTH 16.3 % (11.5-14.5)
[2016-09-30 07:34] LABS: INR 2.78 (0.93-1.08)
--- NOTE | 2016-09-30 07:44 | CP.PCM.PN ---
Subjective - Date & Time of Evaluation Date of Evaluation: 09/30/16 Time of Evaluation: 07:00 - Subjective Subjective: Stable on 2R. No CP or SOB. Less edema. V/S noted. V. Paced. PE Lungs: rhonchi Cor.: S1S2 Abd.: soft Ext.: min. edema Neuro.: alert urine out:1928/4025. Wt = 168 Labs 09/29 noted: Todays INR 2.78 other labs pending. Objective - Vital Signs/Intake and Output Vital Signs (last 24 hours): Temp Pulse Resp BP Pulse Ox 98.3 F 63 19 130/64 94 L 09/30/16 06:00 09/30/16 06:00 09/30/16 06:00 09/30/16 06:00 09/30/16 06:00 Intake and Output: 09/30/16 09/30/16 06:59 18:59 Intake Total 959 Output Total 975 Balance -16 - Medications Medications: Current Medications Acetaminophen (Tylenol 325mg Tab) 650 mg PO Q6H PRN PRN Reason: Pain, severe (8-10) Last Admin: 09/29/16 22:09 Dose: 650 mg Digoxin (Lanoxin) 0.125 mg PO 1400 [facility] Last Admin: 09/29/16 13:02 Dose: 0.125 mg Furosemide (Lasix) 40 mg PO BID [facility] Guaifenesin (Robitussin) 100 mg PO Q4H PRN PRN Reason: Cough Last Admin: 09/30/16 05:21 Dose: 100 mg Milrinone Lactate/Dextrose (Primacor 20mg/100ml D5w) 100 mls @ 5.783 mls/hr IV .[id number] PRN; 0.25 MCG/KG/MIN PRN Reason: TITRATE PER MD ORDER Last Admin: 09/29/16 19:00 Dose: 5.783 mls/hr Isosorbide Mononitrate (Imdur) 60 mg PO 0600 [facility] Last Admin: 09/30/16 05:20 Dose: 60 mg Levothyroxine Sodium (Synthroid) 112 mcg PO 0600 [facility] Last Admin: 09/30/16 05:20 Dose: 112 mcg Losartan Potassium (Cozaar) 100 mg PO DAILY [facility] Last Admin: 09/29/16 09:46 Dose: 100 mg Metoprolol Succinate (Toprol Xl) 50 mg PO BRK [facility] Last Admin: 09/29/16 08:06 Dose: 50 mg Pantoprazole Sodium (Protonix Ec Tab) 40 mg PO 0600 [facility] Last Admin: 09/30/16 05:21 Dose: 40 mg Potassium Chloride (K-Dur 20 Meq Er Tab) 30 meq PO BID [facility] Last Admin: 09/29/16 17:01 Dose: 30 meq Warfarin Sodium (Coumadin) 5 mg PO 1800 [facility] PRN Reason: Protocol Last Admin: 09/29/16 17:01 Dose: 5 mg - Labs Labs: 09/29/16 05:00 09/29/16 06:00 PT 30.0 Seconds (9.9-11.8) H 09/30/16 07:00 INR 2.78 (0.93-1.08) H 09/30/16 07:00 APTT 37.7 Seconds (23.7-30.8) H 09/26/16 07:00 Assessment and Plan - Assessment and Plan (Free Text) Assessment: Dyspnea and edema CMP with severe LVD, 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 Continue PO Lasix, IV milrinone at 0.25 ug./Kg./min. OOB as mireille/PT TCU Eval. Monitor labs, I/O, sats., K, etc. Will follow.
[2016-09-30 07:55] LABS: ALBUMIN 3.3 g/dL (3.0-4.8)
[2016-09-30] MEDS: Metoprolol Succinate 50 mg XL Tab PO SCH (08:14)
[2016-09-30] MEDS: Potassium Chloride 20 mEq ER Tab PO SCH (09:42)
[2016-09-30 11:18] VITALS: RESP 16; O2SAT 99
[2016-09-30 11:32] VITALS: TEMP 98
[2016-09-30] MEDS: Milrinone 20mg/100ml D5W 100 ML IV PRN (13:14)
[2016-09-30 13:26] VITALS: BP 128/58; PULSE 60
--- NOTE | 2016-09-30 23:23 | CP.PCM.DIS ---
<BRITNI DAMON - Last Filed: 09/30/16 23:17> Provider - Provider Date of Admission: 09/27/16 13:23 Attending physician: Eloise Lopez MD Consults: Cardio: [facility] Time Spent in preparation of Discharge (in minutes): 51 Hospital Course - Lab Results Lab Results: Most Recent Lab Values WBC 7.0 10^3/ul (4.5-11.0) 09/30/16 07:00 RBC 3.48 10^6/uL (3.5-6.1) L 09/30/16 07:00 Hgb 10.4 gm/dL (12.0-16.0) L 09/30/16 07:00 Hct 32.3 % (36.0-48.0) L 09/30/16 07:00 MCV 92.8 fL (80.0-105.0) 09/30/16 07:00 MCH 29.9 pg (25.0-35.0) 09/30/16 07:00 MCHC 32.2 g/dl (31.0-37.0) 09/30/16 07:00 RDW 16.3 % (11.5-14.5) H 09/30/16 07:00 Plt Count 170 10^3/uL (120.0-450.0) 09/30/16 07:00 MPV 11.0 fl (7.0-11.0) 09/30/16 07:00 Gran % 53.0 % (50.0-68.0) 09/30/16 07:00 Lymph % (Auto) 31.2 % (22.0-35.0) 09/30/16 07:00 [place] % (Auto) 9.8 % (1.0-6.0) H 09/30/16 07:00 Eos % (Auto) 5.6 % (1.5-5.0) H 09/30/16 07:00 Baso % (Auto) 0.4 % (0.0-3.0) 09/30/16 07:00 Gran # 3.69 (1.4-6.5) 09/30/16 07:00 Lymph # 2.2 (1.2-3.4) 09/30/16 07:00 [place] # 0.7 (0.1-0.6) H 09/30/16 07:00 Eos # 0.4 (0.0-0.7) 09/30/16 07:00 Baso # 0.03 K/mm3 (0.0-2.0) 09/30/16 07:00 PT 30.0 Seconds (9.9-11.8) H 09/30/16 07:00 INR 2.78 (0.93-1.08) H 09/30/16 07:00 APTT 37.7 Seconds (23.7-30.8) H 09/26/16 07:00 Sodium 134 mmol/L (132-148) 09/30/16 07:00 Potassium 4.5 mmol/L (3.6-5.0) 09/30/16 07:00 Chloride 90 mmol/L (95-110) L 09/30/16 07:00 Carbon Dioxide 36 mmol/L (21-33) H 09/30/16 07:00 Anion Gap 13 (10-20) 09/30/16 07:00 BUN 27 mg/dL (7-21) H 09/30/16 07:00 Creatinine 1.1 mg/dL (0.5-1.4) 09/30/16 07:00 Est GFR ( Amer) 57 09/30/16 07:00 Est GFR (Non-Af Amer) 47 09/30/16 07:00 Random Glucose 85 mg/dL (70-110) 09/30/16 07:00 Calcium 9.0 mg/dL (8.4-10.5) 09/30/16 07:00 Magnesium 1.6 mg/dL (1.7-2.2) L 09/29/16 06:00 Total Bilirubin 0.9 mg/dL (0.2-1.3) 09/30/16 07:00 AST 28 U/L (15-39) 09/30/16 07:00 ALT 27 U/L (7-56) 09/30/16 07:00 Alkaline Phosphatase 94 U/L (38-133) 09/30/16 07:00 Lactate Dehydrogenase 560 U/L (333-699) 09/25/16 06:40 Total Creatine Kinase 41 U/L (35-230) 09/25/16 06:40 Troponin I 0.06 ng/mL 09/25/16 06:40 NT-Pro-B Natriuret Pep 4000 pg/mL (0-450) H 09/25/16 06:40 Total Protein 6.6 g/dL (5.8-8.3) 09/30/16 07:00 Albumin 3.3 g/dL (3.0-4.8) 09/30/16 07:00 Globulin 3.3 gm/dL 09/30/16 07:00 Albumin/Globulin Ratio 1.0 (1.1-1.8) L 09/30/16 07:00 TSH 3rd Generation 2.88 mIU/mL (0.46-4.68) 09/26/16 07:00 Urine Color yellow (YELLOW) 09/26/16 00:20 Urine Appearance Clear (CLEAR) 09/26/16 00:20 Urine pH 6.5 (4.7-8.0) 09/26/16 00:20 Ur Specific [place] 1.015 (1.005-1.035) 09/26/16 00:20 Urine Protein Negative mg/dL (<30 mg/dL) 09/26/16 00:20 Urine Glucose (UA) Negative mg/dL (NEGATIVE) 09/26/16 00:20 Urine Ketones Negative mg/dL (NEGATIVE) 09/26/16 00:20 Urine Blood Negative (NEGATIVE) 09/26/16 00:20 Urine Nitrate Negative (NEGATIVE) 09/26/16 00:20 Urine Bilirubin Negative (NEGATIVE) 09/26/16 00:20 Urine Urobilinogen 1.0 E.U./dL (<1 E.U./dL) H 09/26/16 00:20 Ur Leukocyte Esterase Moderate Nay/uL (NEGATIVE) H 09/26/16 00:20 Urine RBC TEST NOT PERFORMED 09/26/16 00:20 Urine WBC 5 - 10 /hpf (0-6) 09/26/16 00:20 Ur Epithelial Cells 10 - 12 /hpf (0-5) 09/26/16 00:20 Amorphous Sediment Trace 09/26/16 00:20 Urine Bacteria Trace (NEG) 09/26/16 00:20 Digoxin 1.3 ng/mL (0.8-2.0) 09/25/16 06:40 - Hospital Course Hospital Course: Mrs. Barlow is an 86 year old female with a past medical history of systolic heart failure, atrial fibrillation, and hypothyroidism presenting with complaints of shortness of breath and bilateral lower leg swelling for a few weeks. Cardiology was consulted. ECG ordered and showed no acute changes. An ECHO was not ordered because one had been done in March that showed EF of 8.7%. Patient treated symptomatically with IV Lasix 40mg BID as well as continuance of her home medications once she was admitted. She was eventually transitioned to PO Lasix 40mg BID. She had no major events during the course of the next 5 days and was managed symptomatically until her discharge to the TCU for deconditioning on 09/30. During her stay, she informed medicine team that she would like to be DNR/DNI, and this was noted in orders. - Date & Time of H&P Date of H&P: 09/25/16 Time of H&P: 12:00 Discharge Exam - Head Exam Head Exam: NORMAL INSPECTION, NORMOCEPHALIC - Eye Exam Eye Exam: EOMI, Normal appearance - ENT Exam ENT Exam: Mucous Membranes Moist, Normal Exam - Neck Exam Neck exam: Full Rom - Respiratory Exam Respiratory Exam: NORMAL BREATHING PATTERN, UNREMARKABLE. absent: Rales, Rhonchi, Wheezes, Respiratory Distress - Cardiovascular Exam Cardiovascular Exam: REGULAR RHYTHM, RRR, +S1, +S2, Systolic Murmur - GI/Abdominal Exam GI & Abdominal Exam: Normal Bowel Sounds. absent: Distended, Firm, Tenderness - Extremities Exam Additional comments: no calf tenderness or pedal edema bilaterally on exam - Neurological Exam Neurological exam: Alert, Oriented x3 - Psychiatric Exam Psychiatric exam: Normal Affect, Normal Mood - Skin Skin Exam: Dry, Intact, Normal Color, Warm Discharge Plan - Follow Up Plan Condition: FAIR Disposition: TRANSF TO SNF Instructions: Heart Failure (DC), Pulmonary Edema (DC) Additional Instructions: TRANSFER TO TCU. Continue all medications as ordered on floor <Eloise Lopez MD - Last Filed: 10/01/16 15:04> Provider - Provider Date of Admission: 09/27/16 13:23 Attending physician: Eloise Lopez MD Hospital Course - Lab Results Lab Results: Most Recent Lab Values WBC 7.0 10^3/ul (4.5-11.0) 09/30/16 07:00 RBC 3.48 10^6/uL (3.5-6.1) L 09/30/16 07:00 Hgb 10.4 gm/dL (12.0-16.0) L 09/30/16 07:00 Hct 32.3 % (36.0-48.0) L 09/30/16 07:00 MCV 92.8 fL (80.0-105.0) 09/30/16 07:00 MCH 29.9 pg (25.0-35.0) 09/30/16 07:00 MCHC 32.2 g/dl (31.0-37.0) 09/30/16 07:00 RDW 16.3 % (11.5-14.5) H 09/30/16 07:00 Plt Count 170 10^3/uL (120.0-450.0) 09/30/16 07:00 MPV 11.0 fl (7.0-11.0) 09/30/16 07:00 Gran % 53.0 % (50.0-68.0) 09/30/16 07:00 Lymph % (Auto) 31.2 % (22.0-35.0) 09/30/16 07:00 [place] % (Auto) 9.8 % (1.0-6.0) H 09/30/16 07:00 Eos % (Auto) 5.6 % (1.5-5.0) H 09/30/16 07:00 Baso % (Auto) 0.4 % (0.0-3.0) 09/30/16 07:00 Gran # 3.69 (1.4-6.5) 09/30/16 07:00 Lymph # 2.2 (1.2-3.4) 09/30/16 07:00 [place] # 0.7 (0.1-0.6) H 09/30/16 07:00 Eos # 0.4 (0.0-0.7) 09/30/16 07:00 Baso # 0.03 K/mm3 (0.0-2.0) 09/30/16 07:00 PT 30.0 Seconds (9.9-11.8) H 09/30/16 07:00 INR 2.78 (0.93-1.08) H 09/30/16 07:00 APTT 37.7 Seconds (23.7-30.8) H 09/26/16 07:00 Sodium 134 mmol/L (132-148) 09/30/16 07:00 Potassium 4.5 mmol/L (3.6-5.0) 09/30/16 07:00 Chloride 90 mmol/L (95-110) L 09/30/16 07:00 Carbon Dioxide 36 mmol/L (21-33) H 09/30/16 07:00 Anion Gap 13 (10-20) 09/30/16 07:00 BUN 27 mg/dL (7-21) H 09/30/16 07:00 Creatinine 1.1 mg/dL (0.5-1.4) 09/30/16 07:00 Est GFR ( Amer) 57 09/30/16 07:00 Est GFR (Non-Af Amer) 47 09/30/16 07:00 Random Glucose 85 mg/dL (70-110) 09/30/16 07:00 Calcium 9.0 mg/dL (8.4-10.5) 09/30/16 07:00 Magnesium 1.6 mg/dL (1.7-2.2) L 09/29/16 06:00 Total Bilirubin 0.9 mg/dL (0.2-1.3) 09/30/16 07:00 AST 28 U/L (15-39) 09/30/16 07:00 ALT 27 U/L (7-56) 09/30/16 07:00 Alkaline Phosphatase 94 U/L (38-133) 09/30/16 07:00 Lactate Dehydrogenase 560 U/L (333-699) 09/25/16 06:40 Total Creatine Kinase 41 U/L (35-230) 09/25/16 06:40 Troponin I 0.06 ng/mL 09/25/16 06:40 NT-Pro-B Natriuret Pep 4000 pg/mL (0-450) H 09/25/16 06:40 Total Protein 6.6 g/dL (5.8-8.3) 09/30/16 07:00 Albumin 3.3 g/dL (3.0-4.8) 09/30/16 07:00 Globulin 3.3 gm/dL 09/30/16 07:00 Albumin/Globulin Ratio 1.0 (1.1-1.8) L 09/30/16 07:00 TSH 3rd Generation 2.88 mIU/mL (0.46-4.68) 09/26/16 07:00 Urine Color yellow (YELLOW) 09/26/16 00:20 Urine Appearance Clear (CLEAR) 09/26/16 00:20 Urine pH 6.5 (4.7-8.0) 09/26/16 00:20 Ur Specific [place] 1.015 (1.005-1.035) 09/26/16 00:20 Urine Protein Negative mg/dL (<30 mg/dL) 09/26/16 00:20 Urine Glucose (UA) Negative mg/dL (NEGATIVE) 09/26/16 00:20 Urine Ketones Negative mg/dL (NEGATIVE) 09/26/16 00:20 Urine Blood Negative (NEGATIVE) 09/26/16 00:20 Urine Nitrate Negative (NEGATIVE) 09/26/16 00:20 Urine Bilirubin Negative (NEGATIVE) 09/26/16 00:20 Urine Urobilinogen 1.0 E.U./dL (<1 E.U./dL) H 09/26/16 00:20 Ur Leukocyte Esterase Moderate Nay/uL (NEGATIVE) H 09/26/16 00:20 Urine RBC TEST NOT PERFORMED 09/26/16 00:20 Urine WBC 5 - 10 /hpf (0-6) 09/26/16 00:20 Ur Epithelial Cells 10 - 12 /hpf (0-5) 09/26/16 00:20 Amorphous Sediment Trace 09/26/16 00:20 Urine Bacteria Trace (NEG) 09/26/16 00:20 Digoxin 1.3 ng/mL (0.8-2.0) 09/25/16 06:40 Attending/Attestation - Attestation I have personally seen and examined this patient.: Yes I have fully participated in the care of the patient.: Yes I have reviewed all pertinent clinical information, including history, physical exam and plan: Yes Notes (Text): 10/01/16 15:00 Patient was seen and examined with medical liaison. Agreed with resident assessment and plan. 86 year old female with a past medical history of systolic heart failure, atrial fibrillation, and hypothyroidism was admitted with acute on chronic systolic CHF, Shortness of breath and leg swelling has improved with diuresis and Milrinone infusion. Renal functions are stable. Patient is deconditioned, will be discharged to TCU for rehabilitation. Management plan was discussed in detail with patient Education was provided.
== END 2016-09-30 14:00 | DRG 292 ==
LOC: ED 06:12 → ERH 08:35 → 2RSO 09:58 → OBSVTOIN 09-27 13:23 → 2RSO 09-27 20:51
PROVIDERS: ADMIT Hospitalist; ATTEND Internal Medicine
DX: I50.23 Acute on chronic systolic (congestive) heart failure (principal); I42.0 Dilated cardiomyopathy; I27.2 Other secondary pulmonary hypertension; I48.0 Paroxysmal atrial fibrillation; M10.9 Gout, unspecified; E03.9 Hypothyroidism, unspecified; E87.6 Hypokalemia; I08.1 Rheumatic disorders of both mitral and tricuspid valves; Z66 Do not resuscitate; Z86.73 Personal history of transient ischemic attack (TIA), and cerebral infarction without residual deficits; Z95.810 Presence of automatic (implantable) cardiac defibrillator; Z87.891 Personal history of nicotine dependence

== ENCOUNTER 2016-09-30 14:02 | Inpatient (IN) | payer MEDICARE, OTHER ==
[2016-09-30 14:10] VITALS: BMI 26.6
[2016-09-30] MEDS ORDERED: guaiFENesin 100 mg/5 ml Syrup UD PO PRN (15:11)
[2016-09-30] MEDS ORDERED: Pneumococcal 23-Valent Vaccine IM ONE (16:07)
[2016-09-30] MEDS: Potassium Chloride 10 mEq ER Tab PO SCH (17:45)
[2016-10-01] MEDS: Milrinone 20mg/100ml D5W 100 ML IV PRN (05:51)
[2016-10-01] MEDS: Levothyroxine 112 MCG TAB PO SCH (05:59)
[2016-10-01] MEDS: Pantoprazole 40 mg EC Tab PO SCH (05:59)
--- NOTE | 2016-10-01 07:17 | CP.PCM.HP ---
<BRITNI DAMON - Last Filed: 10/01/16 13:38> History of Present Illness - History of Present Illness History of Present Illness: CC: Deconditioning HPI: Mrs. Barlow is an 86 year old female with a past medical history of systolic heart failure, atrial fibrillation, and hypothyroidism who presented with complaints of shortness of breath and bilateral lower leg swelling on 09/25. Cardiology was consulted. ECG ordered and showed no acute changes. An ECHO was not ordered because one had been done in March that showed EF of 8.7%. Patient treated symptomatically with IV Lasix 40mg BID as well as continuance of her home medications once she was admitted. She was eventually transitioned to PO Lasix 40mg BID. She had no major events during the course of the next 5 days and was managed symptomatically until her discharge to the TCU for deconditioning on 09/30. Currently, patient is complaining of continued foot and knee pain which is noted to be chronic. This pain has not changed in quality or intensity She has no other complaints at this time. PMH: Systolic Heart Failure w/ ICD placement, Atrial Fibrillation w/ PPM, Hypothyroidism, Gout PSH: Laminectomy, Cholecystectomy, Hernia Repair FH: non-contributory Allergies: codeine, penicillins Social hx: former smoker - quit 1990. Denies alcohol or illicit drug use PMD: Dr. Green Vascular Ultrasound Technician: Dr. Alcantara Present on Admission - Present on Admission Any Indicators Present on Admission: No Review of Systems - Review of Systems Review of Systems: Refer to HPI Past Patient History - Infectious Disease Hx of Infectious Diseases: None - Tetanus Immunizations Tetanus Immunization: Unknown - Past Medical History & Family History Past Medical History?: Yes - Past Social History Smoking Status: Former Smoker - CARDIAC Hx Cardiac Disorders: Yes (Chronic Afib, cardiomyopathy) Hx Hypertension: Yes (Pulmonary HTN) - PULMONARY Hx Chronic Obstructive Pulmonary Disease (COPD): Yes - NEUROLOGICAL HX Cerebrovascular Accident: Yes - HEENT Hx HEENT Problems: Yes (eyeglasses) Hx Blind: No Hx Cataracts: Yes (r eye 01/24/13) - RENAL Hx Chronic Kidney Disease: No - ENDOCRINE/METABOLIC Hx Hypothyroidism: Yes - HEMATOLOGICAL/ONCOLOGICAL Hx Blood Transfusions: No Hx Blood Transfusion Reaction: No - INTEGUMENTARY Hx Dermatological Problems: Yes (b/l pedal edema) - MUSCULOSKELETAL/RHEUMATOLOGICAL Hx Falls: Yes - GASTROINTESTINAL Hx Gastrointestinal Disorders: Yes (HERNIA SX,CHOLEYCSTECTOMY) - GENITOURINARY/GYNECOLOGICAL Hx Genitourinary Disorders: No Hx Reproductive Disorders: No - PSYCHIATRIC Hx Emotional Abuse: No Hx Physical Abuse: No Hx Substance Use: No - SURGICAL HISTORY Hx Cholecystectomy: Yes Other/Comment: hammer toe surgery, laminectomy in 1990, had an abdominal hernia repair. pacemaker/defib in L chest wall. R chest wall port placement - ANESTHESIA Hx Anesthesia: Yes Hx Anesthesia Reactions: No Hx Malignant Hyperthermia: No Meds Allergies/Adverse Reactions: Allergies Allergy/AdvReac Type Severity Reaction Status Date / Time codeine Allergy SHORTNESS Verified 09/25/16 12:23 OF BREATH Penicillins Allergy RASH Verified 09/25/16 12:23 Physical Exam - Constitutional Appears: No Acute Distress - Head Exam Head Exam: NORMAL INSPECTION, NORMOCEPHALIC - Eye Exam Eye Exam: EOMI, Normal appearance - ENT Exam ENT Exam: Mucous Membranes Moist, Normal Exam - Neck Exam Neck exam: Positive for: Full Rom - Respiratory Exam Respiratory Exam: NORMAL BREATHING PATTERN. absent: Rales, Wheezes, Respiratory Distress - Cardiovascular Exam Cardiovascular Exam: REGULAR RHYTHM, +S1, +S2, Systolic Murmur. absent: Bradycardia, Tachycardia - GI/Abdominal Exam GI & Abdominal Exam: Normal Bowel Sounds. absent: Distended, Firm, Tenderness - Extremities Exam Extremities exam: Positive for: normal capillary refill, tenderness, pedal pulses present. Negative for: calf tenderness, pedal edema - Neurological Exam Neurological exam: Alert, Oriented x3 - Psychiatric Exam Psychiatric exam: Normal Affect, Normal Mood - Skin Skin Exam: Dry, Intact, Normal Color, Warm Results - Vital Signs Recent Vital Signs: Last Vital Signs Temp 97.2 F L 09/30/16 16:30 Pulse 72 10/01/16 05:51 Resp 18 09/30/16 16:30 BP 132/69 10/01/16 05:51 Pulse Ox 99 09/30/16 16:30 - Labs Result Diagrams: 10/01/16 10:00 10/01/16 10:00 Assessment & Plan - Assessment and Plan (Free Text) Assessment: Mrs. Barlow is an 86 year old female with a past medical history of systolic heart failure, atrial fibrillation, and hypothyroidism presenting with deconditioning s/p discharge from [facility] to [facility]. Plan: 1. CHF Exacerbation, NYHA Stage III -Cardiology ([facility]) consulted, all recommendations appreciated ([facility] follows patient in clinic); f/u recommendations -start Lasix 40mg PO BID -cont milrinone drip, Digoxin, Cozaar, Toprol, KCl -Heart healthy diet and strict I's and O's -cont PT/OT 2. History of Atrial Fibrillation -cont home amiodarone -cont Coumadin 5mg -will monitor and adjust AC regiment accordingly 3. Hypokalemia -cont PO KCl -will cont to monitor with daily CMP's 4. Lower Extremity Pain -bilateral knee xray -started prednisone 30mg once to see if relief is provided -follow up uric acid 5. History of Hypothyroidism -cont home synthroid 6. DNR/DNI Status -discussed with patient and obtained her wished verbally -states that she wants to be "comfortable" but does not want to be resuscitated or intubated -F/U proper documentation to place in chart 7. GI/DVT Prohpylaxis -Protonix/Coumadin Patient seen and case discussed in detail with attending, Dr. Lopez. - Date & Time Date: 10/01/16 Time: 07:30 <Jessica GALLARDO,[facility] - Last Filed: 10/01/16 15:07> Results - Vital Signs Recent Vital Signs: Last Vital Signs Temp 98.7 F 10/01/16 10:18 Pulse 59 L 10/01/16 10:18 Resp 18 10/01/16 10:18 BP 110/50 L 10/01/16 10:27 Pulse Ox 94 L 10/01/16 10:18 - Labs Result Diagrams: 10/01/16 10:00 10/01/16 10:00 Labs: Laboratory Results - last 24 hr 10/01/16 10/01/16 10/01/16 10:00 10:00 10:00 WBC 6.7 RBC 3.68 Hgb 10.9 L Hct 34.5 L MCV 93.8 MCH 29.6 MCHC 31.6 RDW 16.3 H Plt Count 171 MPV 9.9 Gran % 60.9 Lymph % (Auto) 24.3 [place] % (Auto) 9.6 H Eos % (Auto) 4.5 Baso % (Auto) 0.7 Gran # 4.07 Lymph # 1.6 [place] # 0.6 Eos # 0.3 Baso # 0.05 PT 28.4 H INR 2.63 H Sodium 136 Potassium 3.8 Chloride 91 L Carbon Dioxide 38 H Anion Gap 11 BUN 26 H Creatinine 1.2 Est GFR ( Amer) 52 Est GFR (Non-Af Amer) 43 Random Glucose 103 Uric Acid Calcium 9.3 Magnesium 1.6 L Total Bilirubin 1.0 AST 29 ALT 26 Alkaline Phosphatase 93 Total Protein 7.0 Albumin 3.5 Globulin 3.5 Albumin/Globulin Ratio 1.0 L 10/01/16 12:20 WBC RBC Hgb Hct MCV MCH MCHC RDW Plt Count MPV Gran % Lymph % (Auto) [place] % (Auto) Eos % (Auto) Baso % (Auto) Gran # Lymph # [place] # Eos # Baso # PT INR Sodium Potassium Chloride Carbon Dioxide Anion Gap BUN Creatinine Est GFR ( Amer) Est GFR (Non-Af Amer) Random Glucose Uric Acid 8.7 H Calcium Magnesium Total Bilirubin AST ALT Alkaline Phosphatase Total Protein Albumin Globulin Albumin/Globulin Ratio Attending/Attestation - Attestation I have personally seen and examined this patient.: Yes I have fully participated in the care of the patient.: Yes I have reviewed all pertinent clinical information: Yes Notes (Text): 10/01/16 15:05 Patient was seen and examined with district medical examiner. Agreed with resident assessment and plan. 86 year old female with a past medical history of systolic heart failure, atrial fibrillation, and hypothyroidism was admitted with acute on chronic systolic CHF, Shortness of breath and leg swelling has improved with diuresis and Milrinone infusion. Renal functions are stable. Patient is deconditioned, and is admitted to TCU for rehabilitation.Patient is c /o knee and ankle pain, no swelling of joint, has history of gout, will check uric acid level , will also get X rays. Management plan was discussed in detail with patient Education was provided.
--- NOTE | 2016-10-01 08:34 | CP.PCM.PN ---
Subjective - Date & Time of Evaluation Date of Evaluation: 10/01/16 Time of Evaluation: 07:00 - Subjective Subjective: Stable in TCU now. + joint pains but no SOB or CP. Edema is gone now. V/S noted. PE: Lungs: few rhonchi Cor.: S1S2 Abd.: soft Ext. no edema Neuro.: alert Labs pending. Objective - Vital Signs/Intake and Output Vital Signs (last 24 hours): Temp Pulse Resp BP Pulse Ox 97.2 F L 72 18 132/69 99 09/30/16 16:30 10/01/16 05:51 09/30/16 16:30 10/01/16 05:51 09/30/16 16:30 - Medications Medications: Current Medications Acetaminophen (Tylenol 325mg Tab) 650 mg PO Q6H PRN PRN Reason: Pain, moderate (4-7) Digoxin (Lanoxin) 0.125 mg PO 1400 [facility] Furosemide (Lasix) 40 mg PO BID [facility] Last Admin: 09/30/16 17:47 Dose: 40 mg Guaifenesin (Robitussin) 100 mg PO Q4H PRN PRN Reason: Cough Milrinone Lactate/Dextrose (Primacor 20mg/100ml D5w) 100 mls @ 5.783 mls/hr IV .[id number] PRN; Protocol PRN Reason: TITRATE PER MD ORDER Last Admin: 10/01/16 05:51 Dose: 5.783 mls/hr Isosorbide Mononitrate (Imdur) 60 mg PO 0600 [facility] Last Admin: 10/01/16 05:59 Dose: 60 mg Levothyroxine Sodium (Synthroid) 112 mcg PO 0600 [facility] Last Admin: 10/01/16 05:59 Dose: 112 mcg Losartan Potassium (Cozaar) 100 mg PO DAILY [facility] Metoprolol Succinate (Toprol Xl) 50 mg PO BRK [facility] Pantoprazole Sodium (Protonix Ec Tab) 40 mg PO 0600 [facility] Last Admin: 10/01/16 05:59 Dose: 40 mg Potassium Chloride (Klor-Con 10) 30 meq PO BID [facility] Last Admin: 09/30/16 17:45 Dose: 30 meq Warfarin Sodium (Coumadin) 5 mg PO 1800 [facility] PRN Reason: Protocol Last Admin: 09/30/16 17:44 Dose: 5 mg Assessment and Plan - Assessment and Plan (Free Text) Assessment: Dyspnea,edema, improved CMP with severe LVD on home milrinone CHF IV VT/ICD PAF CVA Gout, possible acute attack Hypothyroidism Surgeries: back, GB, Hernia Echo: Severe LVD, MR,TR and PH Plan: Rx. for joint wong, possible acute gout Continue cardiac meds and IV milrinone Await AM labs, INR OOB as mireille/PT/Rehab Efforts
[2016-10-01] MEDS: Metoprolol Succinate 50 mg XL Tab PO SCH (08:39)
[2016-10-01] MEDS: Potassium Chloride 10 mEq ER Tab PO SCH ×2 (10:27→17:33)
[2016-10-01 10:29] LABS: BASO # 0.05 K/mm3 (0.0-2.0); BASO % 0.7 % (0.0-3.0); EOS # 0.3 (0.0-0.7); EOS % 4.5 % (1.5-5.0); GRAN # 4.07 (1.4-6.5); GRAN % 60.9 % (50.0-68.0); HEMOGLOBIN 10.9 gm/dL (12.0-16.0); LYMPH # 1.6 (1.2-3.4); LYMPH % 24.3 % (22.0-35.0); MEAN CELL VOLUME 93.8 fL (80.0-105.0); MEAN CORPUSCULAR HEMOGLOBIN 29.6 pg (25.0-35.0); MEAN CORPUSCULAR HGB CONC 31.6 g/dl (31.0-37.0); MEAN PLATELET VOLUME 9.9 fl (7.0-11.0); MONO # 0.6 (0.1-0.6); MONO % 9.6 % (1.0-6.0); PLATELET COUNT 171 10^3/uL (120.0-450.0); RBC 3.68 10^6/uL (3.5-6.1); RED CELL DISTRIBUTION WIDTH 16.3 % (11.5-14.5); WHITE BLOOD COUNT 6.7 10^3/ul (4.5-11.0)
[2016-10-01 10:38] LABS: INR 2.63 (0.93-1.08); PROTHROMBIN TIME 28.4 Seconds (9.9-11.8)
[2016-10-01 10:39] LABS: ALBUMIN 3.5 g/dL (3.0-4.8); CALCIUM 9.3 mg/dL (8.4-10.5); MAGNESIUM 1.6 mg/dL (1.7-2.2)
[2016-10-01] MEDS: Digoxin 125 mcg (0.125 mg) Tab PO SCH (15:02)
[2016-10-01] MEDS: Magnesium Oxide 400 mg Tab UD PO SCH ×2 (15:03→17:35)
--- NOTE | 2016-10-01 15:14 | RAD ---
PROCEDURE: Bilateral knees dated 09/23/2016. HISTORY: Pain. COMPARISON: No prior study available comparison FINDINGS: Right knee findings: Current study reveals no evidence of acute displaced fracture nor dislocation. There are calcifications are present within the lateral and to a lesser degree medial compartments are consistent with chondrocalcinosis. Rule out CPPD. 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 . Small posterior patellar osteophytes and exuberant anterior inferior and slightly smaller anterior superior patella enthesophyte. Left knee findings: No evidence of acute displaced fracture nor dislocation. . . Note also made of calcifications within the lateral and medial compartments consist with chondrocalcinosis; rule out CPPD. 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 Prominent anterior superior and smaller anterior inferior patellar enthesophytes. Suspect trace suprapatellar joint effusion. Impression: No acute fractures. Chondrocalcinosis; rule out CPPD. The secondary degenerative osteoarthritis changes both knees most notably affecting the lateral and patellofemoral compartments as detailed above.
[2016-10-02 07:38] LABS: BASO # 0.02 K/mm3 (0.0-2.0); BASO % 0.3 % (0.0-3.0); GRAN # 5.38 (1.4-6.5); GRAN % 77.3 % (50.0-68.0); HEMOGLOBIN 11.2 gm/dL (12.0-16.0); LYMPH # 1.3 (1.2-3.4); LYMPH % 18.7 % (22.0-35.0); MEAN CELL VOLUME 92.5 fL (80.0-105.0); MEAN CORPUSCULAR HEMOGLOBIN 29.9 pg (25.0-35.0); MEAN CORPUSCULAR HGB CONC 32.4 g/dl (31.0-37.0); MEAN PLATELET VOLUME 10.5 fl (7.0-11.0); MONO # 0.3 (0.1-0.6); MONO % 3.7 % (1.0-6.0); PLATELET COUNT 205 10^3/uL (120.0-450.0); RBC 3.74 10^6/uL (3.5-6.1)
[2016-10-02 07:46] LABS: INR 2.44 (0.93-1.08); PROTHROMBIN TIME 26.3 Seconds (9.9-11.8)
[2016-10-02] MEDS: Pantoprazole 40 mg EC Tab PO SCH (07:49)
[2016-10-02] MEDS: Levothyroxine 112 MCG TAB PO SCH (07:49)
[2016-10-02 07:56] LABS: ALBUMIN 3.6 g/dL (3.0-4.8); CALCIUM 9.4 mg/dL (8.4-10.5)
[2016-10-02] MEDS: Metoprolol Succinate 50 mg XL Tab PO SCH (08:14)
[2016-10-02] MEDS: Potassium Chloride 10 mEq ER Tab PO SCH ×2 (11:30→17:54)
[2016-10-02] MEDS: Magnesium Oxide 400 mg Tab UD PO SCH ×3 (11:30→17:55)
--- NOTE | 2016-10-02 12:42 | PN ---
DATE: 10/02/2016 SUBJECTIVE: The patient is seen sitting in a chair in TCU. She is currently comfortable. She denies any dyspnea at rest. CURRENT MEDICATIONS: Include warfarin, Cozaar, Imdur, potassium, digoxin, Lasix 40 mg b.i.d., milrinone infusion, Protonix, Synthroid, metoprolol 50 mg daily. OBJECTIVE: GENERAL: She is a very elderly woman, appears comfortable at the present time. VITAL SIGNS: Her blood pressure is 122/76 with a pulse of 70 regular, respirations are 16. She is afebrile. HEENT: No JVD. CHEST: Diminished breath sounds at the bases. HEART: PMI displaced laterally with soft tones are noted. ABDOMEN: Soft and nontender with bowel sounds. EXTREMITIES: Trace edema. DIAGNOSTIC DATA: Potassium of 5.0, BUN and creatinine of 31 and 1.1. Hemoglobin and hematocrit 11.2 and 34.6 with a white count of 7.0, and platelet count 205,000. INR is 2.44. IMPRESSION: 1. 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 History of ventricular tachycardia, status post implantable cardioverter defibrillator. 3. Paroxysmal atrial fibrillation. 4. Possible acute knee gout. RECOMMENDATIONS: Her current medications should be continued. IV milrinone infusion is planned. Maintenance of the prerenal state is advised. Increase activities as tolerated as recommended. We will continue to follow and make further recommendations as appropriate. Dino Thompson MD MTDD
[2016-10-02] MEDS: Digoxin 125 mcg (0.125 mg) Tab PO SCH (13:40)
[2016-10-02] MEDS: Milrinone 20mg/100ml D5W 100 ML IV PRN (14:40)
[2016-10-03] MEDS: Milrinone 20mg/100ml D5W 100 ML IV PRN ×2 (06:07→23:29)
[2016-10-03] MEDS: Pantoprazole 40 mg EC Tab PO SCH (06:10)
[2016-10-03] MEDS: Levothyroxine 112 MCG TAB PO SCH (06:10)
[2016-10-03 07:05] LABS: CALCIUM 9.2 mg/dL (8.4-10.5); MAGNESIUM 2.2 mg/dL (1.7-2.2)
[2016-10-03] MEDS: Metoprolol Succinate 50 mg XL Tab PO SCH (08:23)
[2016-10-03] MEDS: Magnesium Oxide 400 mg Tab UD PO SCH ×3 (11:37→17:49)
--- NOTE | 2016-10-03 12:35 | CP.PCM.PN ---
<IsidroJose - Last Filed: 10/03/16 12:35> Subjective - Date & Time of Evaluation Date of Evaluation: 10/03/16 Time of Evaluation: 08:45 - Subjective Subjective: Pt s/e bedside. Pt states she is feeling well, pain is chronic but no worse. No further complaints. Objective - Vital Signs/Intake and Output Vital Signs (last 24 hours): Temp Pulse Resp BP Pulse Ox 98.0 F 68 18 137/57 L 97 10/02/16 16:27 10/03/16 08:23 10/02/16 16:27 10/03/16 11:38 10/02/16 06:00 Intake and Output: 10/03/16 10/03/16 06:59 18:59 Intake Total 200 Balance 200 - Medications Medications: Current Medications Acetaminophen (Tylenol 325mg Tab) 650 mg PO Q6H PRN PRN Reason: Pain, moderate (4-7) Last Admin: 10/01/16 08:40 Dose: 650 mg Digoxin (Lanoxin) 0.125 mg PO 1400 [facility] Last Admin: 10/02/16 13:40 Dose: 0.125 mg Furosemide (Lasix) 20 mg PO BID [facility] Last Admin: 10/03/16 11:38 Dose: 20 mg Guaifenesin (Robitussin) 100 mg PO Q4H PRN PRN Reason: Cough Milrinone Lactate/Dextrose (Primacor 20mg/100ml D5w) 100 mls @ 5.783 mls/hr IV .[id number] PRN; Protocol PRN Reason: TITRATE PER MD ORDER Last Admin: 10/03/16 06:07 Dose: 5.783 mls/hr Isosorbide Mononitrate (Imdur) 60 mg PO 0600 [facility] Last Admin: 10/03/16 06:10 Dose: 60 mg Levothyroxine Sodium (Synthroid) 112 mcg PO 0600 [facility] Last Admin: 10/03/16 06:10 Dose: 112 mcg Losartan Potassium (Cozaar) 100 mg PO DAILY [facility] Last Admin: 10/02/16 11:29 Dose: 100 mg Magnesium Oxide (Mag-Ox) 400 mg PO TID [facility] Last Admin: 10/03/16 11:37 Dose: 400 mg Metoprolol Succinate (Toprol Xl) 50 mg PO BRK [facility] Last Admin: 10/03/16 08:23 Dose: 50 mg Pantoprazole Sodium (Protonix Ec Tab) 40 mg PO 0600 [facility] Last Admin: 10/03/16 06:10 Dose: 40 mg Warfarin Sodium (Coumadin) 5 mg PO 1800 [facility] PRN Reason: Protocol Last Admin: 10/02/16 17:54 Dose: 5 mg - Labs Labs: 10/02/16 07:00 10/03/16 06:00 PT 26.3 Seconds (9.9-11.8) H 10/02/16 07:00 INR 2.44 (0.93-1.08) H 10/02/16 07:00 - Additional Findings Additional findings: Phys Exam: VS as below Constitutional: a&o x 4, nad Head and Neck: neck supple, no jvd, trachea midline, carotid midline, no cervical/head mass Eyes: chip, nonicteric sclera, eom intact ENT: auditory acuity grossly intact, throat not congested, no nasal deformity Cardio: rrr, no m/r/g, no carotid bruit, nml s1, s2 Pulm: no accessory muscle use, equal nml breath sounds bilaterally, ctab Abd: s/nt/nd, nbs x 4 q, no palpable masses Derm: no rashes, no ulcers, no lesions Extr: + pt no longer has edema; no cyanosis, no calf tenderness, no lesions, no varicosities Neuro: cn II-XII grossly intact, ue and le 5/5 muscle strength bilaterally, no los ue, le bilaterally and core Assessment and Plan - Assessment and Plan (Free Text) Assessment: Assessment: Mrs. Barlow is an 86 year old female with a past medical history of systolic heart failure, atrial fibrillation, and hypothyroidism presenting with deconditioning s/p discharge from [facility] to [facility]. Plan: 1. CHF Exacerbation, NYHA Stage III -Cardiology ([facility]) consulted, all recommendations appreciated ([facility] follows patient in clinic); f/u recommendations -Lasix down to 20 mg PO bid -cont milrinone drip, Digoxin, Cozaar, Toprol, KCl -Heart healthy diet and strict I's and O's -cont PT/OT 2. History of Atrial Fibrillation -cont home amiodarone -cont Coumadin 5mg -will monitor and adjust AC regiment accordingly 3. Hypokalemia -Was noted to be slightly hyPERkalemic today - will recheck labs, hold losartan and K+. Once potassium normalizes, can resume potassium -will cont to monitor with daily CMP's 4. Lower Extremity Pain -bilateral knee xray -10 mg prednisone today; 5 tmrw; then stop -follow up uric acid 5. History of Hypothyroidism -cont home synthroid 6. DNR/DNI Status -discussed with patient and obtained her wished verbally -states that she wants to be "comfortable" but does not want to be resuscitated or intubated -F/U proper documentation to place in chart 7. GI/DVT Prohpylaxis -Protonix/Coumadin Patient seen and case discussed in detail with attending, Dr. Lopez. <Jessica GALLARDO,[facility] - Last Filed: 10/03/16 13:14> Objective - Vital Signs/Intake and Output Vital Signs (last 24 hours): Temp Pulse Resp BP Pulse Ox 98.0 F 68 18 137/57 L 97 10/02/16 16:27 10/03/16 08:23 10/02/16 16:27 10/03/16 11:38 10/02/16 06:00 Intake and Output: 10/03/16 10/03/16 06:59 18:59 Intake Total 200 Balance 200 - Medications Medications: Current Medications Acetaminophen (Tylenol 325mg Tab) 650 mg PO Q6H PRN PRN Reason: Pain, moderate (4-7) Last Admin: 10/01/16 08:40 Dose: 650 mg Digoxin (Lanoxin) 0.125 mg PO 1400 [facility] Last Admin: 10/02/16 13:40 Dose: 0.125 mg Furosemide (Lasix) 20 mg PO BID [facility] Last Admin: 10/03/16 11:38 Dose: 20 mg Guaifenesin (Robitussin) 100 mg PO Q4H PRN PRN Reason: Cough Milrinone Lactate/Dextrose (Primacor 20mg/100ml D5w) 100 mls @ 5.783 mls/hr IV .[id number] PRN; Protocol PRN Reason: TITRATE PER MD ORDER Last Admin: 10/03/16 06:07 Dose: 5.783 mls/hr Isosorbide Mononitrate (Imdur) 60 mg PO 0600 [facility] Last Admin: 10/03/16 06:10 Dose: 60 mg Levothyroxine Sodium (Synthroid) 112 mcg PO 0600 [facility] Last Admin: 10/03/16 06:10 Dose: 112 mcg Losartan Potassium (Cozaar) 100 mg PO DAILY [facility] Last Admin: 10/02/16 11:29 Dose: 100 mg Magnesium Oxide (Mag-Ox) 400 mg PO TID [facility] Last Admin: 10/03/16 11:37 Dose: 400 mg Metoprolol Succinate (Toprol Xl) 50 mg PO BRK [facility] Last Admin: 10/03/16 08:23 Dose: 50 mg Pantoprazole Sodium (Protonix Ec Tab) 40 mg PO 0600 [facility] Last Admin: 10/03/16 06:10 Dose: 40 mg Warfarin Sodium (Coumadin) 5 mg PO 1800 [facility] PRN Reason: Protocol Last Admin: 10/02/16 17:54 Dose: 5 mg - Labs Labs: 10/02/16 07:00 10/03/16 06:00 PT 26.3 Seconds (9.9-11.8) H 10/02/16 07:00 INR 2.44 (0.93-1.08) H 10/02/16 07:00 Attending/Attestation - Attestation I have personally seen and examined this patient.: Yes I have fully participated in the care of the patient.: Yes I have reviewed all pertinent clinical information, including history, physical exam and plan: Yes Notes (Text): 10/03/16 13:08 Patient was seen and examined with emergency medicine medical director. 86 year old female with a past medical history of systolic heart failure, atrial fibrillation, and hypothyroidism was admitted with acute on chronic systolic CHF, was initially on telemetry floor and then was transfered to TCU. Shortness of breath and leg swelling improved with diuresis and Milrinone infusion. Creatinin is mildly increased , will decrease the dose of lasix to 20 mg PO BID.Potassium is 5.4 today, will stop PO KCL, will hold ARB, EKG is negative for hyperkalemic changes, patient is asymptomatic, will repeat K level. Knee pain was due to gout, uric acid level was high , has improved with prednisone. Management plan was discussed in detail with patient Education was provided. 10/03/16 13:13
--- NOTE | 2016-10-03 13:32 | CARD ---
APPROVED REPORT EKG Measurement Heart [id number] [id number] <Conclusion> AV sequential or dual chamber electronic pacemaker
[2016-10-03] MEDS: Digoxin 125 mcg (0.125 mg) Tab PO SCH (13:58)
[2016-10-04] MEDS ORDERED: Oxycodone/Acetaminophen 5/325 mg Tab PO PRN (02:36)
[2016-10-04] MEDS: Levothyroxine 112 MCG TAB PO SCH (06:21)
[2016-10-04] MEDS: Pantoprazole 40 mg EC Tab PO SCH (06:21)
--- NOTE | 2016-10-04 08:04 | CP.PCM.PN ---
Subjective - Date & Time of Evaluation Date of Evaluation: 10/04/16 Time of Evaluation: 07:00 - Subjective Subjective: Stable in TCU. + joint pains but no SOB or CP. V/S noted. PE: Lungs: few rhonchi Cor.: S1S2 Abd.: soft Ext. no edema Neuro.: alert Labs 10/03 noted. K+= 5.4 > 4.9 ECG 10/03 noted: AV paced. Objective - Vital Signs/Intake and Output Vital Signs (last 24 hours): Temp Pulse Resp BP Pulse Ox 97.5 F L 61 18 123/55 L 97 10/03/16 10:00 10/03/16 10:00 10/03/16 10:00 10/03/16 17:49 10/02/16 06:00 Intake and Output: 10/04/16 10/04/16 06:59 18:59 Intake Total 1000 Balance 1000 - Medications Medications: Current Medications Acetaminophen (Tylenol 325mg Tab) 650 mg PO Q6H PRN PRN Reason: Pain, moderate (4-7) Last Admin: 10/03/16 21:02 Dose: 650 mg Digoxin (Lanoxin) 0.125 mg PO 1400 [facility] Last Admin: 10/03/16 13:58 Dose: Not Given Furosemide (Lasix) 20 mg PO BID [facility] Last Admin: 10/03/16 17:49 Dose: 20 mg Guaifenesin (Robitussin) 100 mg PO Q4H PRN PRN Reason: Cough Milrinone Lactate/Dextrose (Primacor 20mg/100ml D5w) 100 mls @ 5.783 mls/hr IV .[id number] PRN; Protocol PRN Reason: TITRATE PER MD ORDER Last Admin: 10/03/16 23:29 Dose: 5.783 mls/hr Isosorbide Mononitrate (Imdur) 60 mg PO 0600 [facility] Last Admin: 10/04/16 06:21 Dose: 60 mg Ketorolac Tromethamine (Toradol) 30 mg IVP Q6H PRN PRN Reason: Pain, moderate (4-7) Levothyroxine Sodium (Synthroid) 112 mcg PO 0600 [facility] Last Admin: 10/04/16 06:21 Dose: 112 mcg Losartan Potassium (Cozaar) 100 mg PO DAILY [facility] Last Admin: 10/02/16 11:29 Dose: 100 mg Magnesium Oxide (Mag-Ox) 400 mg PO TID [facility] Last Admin: 10/03/16 17:49 Dose: 400 mg Metoprolol Succinate (Toprol Xl) 50 mg PO BRK [facility] Last Admin: 10/03/16 08:23 Dose: 50 mg Pantoprazole Sodium (Protonix Ec Tab) 40 mg PO 0600 [facility] Last Admin: 10/04/16 06:21 Dose: 40 mg Warfarin Sodium (Coumadin) 5 mg PO 1800 [facility] PRN Reason: Protocol Last Admin: 10/03/16 17:49 Dose: 5 mg - Labs Labs: 10/02/16 07:00 10/03/16 12:50 PT 26.3 Seconds (9.9-11.8) H 10/02/16 07:00 INR 2.44 (0.93-1.08) H 10/02/16 07:00 Assessment and Plan - Assessment and Plan (Free Text) Assessment: Dyspnea,edema, improved CMP with severe LVD on home milrinone CHF IV VT/ICD PAF CVA Gout, possible acute attack Hypothyroidism Surgeries: back, GB, Hernia Echo: Severe LVD, MR,TR and PH Plan: Rx. for joint pans. Continue cardiac meds and IV milrinone Await AM labs, INR today OOB as mireille/PT/Rehab Efforts
[2016-10-04] MEDS: Metoprolol Succinate 50 mg XL Tab PO SCH (08:27)
[2016-10-04 09:22] LABS: INR 3.36 (0.93-1.08); PROTHROMBIN TIME 36.3 Seconds (9.9-11.8)
[2016-10-04] MEDS: Magnesium Oxide 400 mg Tab UD PO SCH ×3 (09:34→17:06)
[2016-10-04] MEDS: Digoxin 125 mcg (0.125 mg) Tab PO SCH (14:22)
[2016-10-04] MEDS: Milrinone 20mg/100ml D5W 100 ML IV PRN (17:01)
[2016-10-05] MEDS: Pantoprazole 40 mg EC Tab PO SCH (06:09)
[2016-10-05] MEDS: Levothyroxine 112 MCG TAB PO SCH (06:09)
[2016-10-05 07:28] LABS: INR 2.95 (0.93-1.08); PROTHROMBIN TIME 31.9 Seconds (9.9-11.8)
--- NOTE | 2016-10-05 07:41 | CP.PCM.PN ---
Subjective - Date & Time of Evaluation Date of Evaluation: 10/05/16 Time of Evaluation: 07:00 - Subjective Subjective: Stable in TCU. + joint pains but no SOB or CP. V/S noted. PE: Lungs: few rhonchi Cor.: S1S2 Abd.: soft Ext. no edema Neuro.: alert Labs pending. INR = 2.95 ECG 10/03 noted: AV paced. Objective - Vital Signs/Intake and Output Vital Signs (last 24 hours): Temp Pulse Resp BP Pulse Ox 97.9 F 60 20 130/58 L 97 10/04/16 15:58 10/04/16 17:01 10/04/16 15:58 10/04/16 17:06 10/04/16 15:58 - Medications Medications: Current Medications Acetaminophen (Tylenol 325mg Tab) 650 mg PO Q6H PRN PRN Reason: Pain, moderate (4-7) Last Admin: 10/05/16 03:57 Dose: 650 mg Digoxin (Lanoxin) 0.125 mg PO 1400 [facility] Last Admin: 10/04/16 14:22 Dose: 0.125 mg Furosemide (Lasix) 20 mg PO BID [facility] Last Admin: 10/04/16 17:06 Dose: 20 mg Guaifenesin (Robitussin) 100 mg PO Q4H PRN PRN Reason: Cough Milrinone Lactate/Dextrose (Primacor 20mg/100ml D5w) 100 mls @ 5.783 mls/hr IV .[id number] PRN; Protocol PRN Reason: TITRATE PER MD ORDER Last Admin: 10/04/16 17:01 Dose: 5.783 mls/hr Isosorbide Mononitrate (Imdur) 60 mg PO 0600 [facility] Last Admin: 10/05/16 06:09 Dose: 60 mg Levothyroxine Sodium (Synthroid) 112 mcg PO 0600 [facility] Last Admin: 10/05/16 06:09 Dose: 112 mcg Losartan Potassium (Cozaar) 100 mg PO DAILY [facility] Last Admin: 10/04/16 09:34 Dose: 100 mg Magnesium Oxide (Mag-Ox) 400 mg PO TID [facility] Last Admin: 10/04/16 17:06 Dose: 400 mg Metoprolol Succinate (Toprol Xl) 50 mg PO BRK [facility] Last Admin: 07/31/17 08:27 Dose: 50 mg Pantoprazole Sodium (Protonix Ec Tab) 40 mg PO 0600 [facility] Last Admin: 10/05/16 06:09 Dose: 40 mg Prednisone (Prednisone Tab) 5 mg PO DAILY [facility] Warfarin Sodium (Coumadin) 5 mg PO 1800 [facility] PRN Reason: Protocol Last Admin: 10/03/16 17:49 Dose: 5 mg - Labs Labs: 10/02/16 07:00 10/04/16 09:00 PT 31.9 Seconds (9.9-11.8) H* 10/05/16 06:00 INR 2.95 (0.93-1.08) H 10/05/16 06:00 Assessment and Plan - Assessment and Plan (Free Text) Assessment: Dyspnea,edema, improved CMP with severe LVD on home milrinone CHF IV VT/ICD PAF CVA Gout, possible acute attack Hypothyroidism Surgeries: back, GB, Hernia Echo: Severe LVD, MR,TR and PH Plan: Rx. for joint pains. Would not use prednisone. Suggest: D/W her head men's golf coach Dr. Green ([phone]) Continue cardiac meds and IV milrinone Await AM BMP. Hold warfarin today. Monitor INR's daily. OOB as mireille/PT/Rehab Efforts
[2016-10-05 08:12] LABS: CALCIUM 8.8 mg/dL (8.4-10.5)
[2016-10-05] MEDS: Metoprolol Succinate 50 mg XL Tab PO SCH (09:00)
[2016-10-05] MEDS: Magnesium Oxide 400 mg Tab UD PO SCH ×3 (10:22→17:52)
[2016-10-05 11:32] LABS: BASO # 0.05 K/mm3 (0.0-2.0); BASO % 0.6 % (0.0-3.0); EOS # 0.2 (0.0-0.7); EOS % 2.2 % (1.5-5.0); GRAN # 4.39 (1.4-6.5); GRAN % 50.7 % (50.0-68.0); HEMOGLOBIN 10.7 gm/dL (12.0-16.0); LYMPH % 34.1 % (22.0-35.0); MEAN CELL VOLUME 93.9 fL (80.0-105.0); MEAN CORPUSCULAR HEMOGLOBIN 29.9 pg (25.0-35.0); MEAN CORPUSCULAR HGB CONC 31.8 g/dl (31.0-37.0); MEAN PLATELET VOLUME 9.6 fl (7.0-11.0); MONO # 1.1 (0.1-0.6); MONO % 12.4 % (1.0-6.0); PLATELET COUNT 205 10^3/uL (120.0-450.0); RBC 3.58 10^6/uL (3.5-6.1); RED CELL DISTRIBUTION WIDTH 15.9 % (11.5-14.5); WHITE BLOOD COUNT 8.7 10^3/ul (4.5-11.0)
[2016-10-05] MEDS: Digoxin 125 mcg (0.125 mg) Tab PO SCH (13:39)
--- NOTE | 2016-10-05 13:56 | CP.PCM.PN ---
<ToritoEvelin - Last Filed: 10/05/16 13:52> Subjective - Date & Time of Evaluation Date of Evaluation: 10/05/16 Time of Evaluation: 13:52 - Subjective Subjective: PT S&E at bedside. JENNIFER. Complaining of the same pain as yesterday in the right foot, knees. Patient denies F/C, N/V, C/D. Patient is tolerating pain well. Patient has no other complaints. Objective - Vital Signs/Intake and Output Vital Signs (last 24 hours): Temp Pulse Resp BP Pulse Ox 98.5 F 60 18 131/52 L 97 10/05/16 10:17 10/05/16 10:17 10/05/16 10:17 10/05/16 10:21 10/05/16 10:17 - Medications Medications: Current Medications Acetaminophen (Tylenol 325mg Tab) 650 mg PO Q6H PRN PRN Reason: Pain, moderate (4-7) Last Admin: 10/05/16 10:25 Dose: 650 mg Colchicine (Colocrys) 0.6 mg PO DAILY [facility] Last Admin: 10/05/16 10:20 Dose: 0.6 mg Digoxin (Lanoxin) 0.125 mg PO 1400 [facility] Last Admin: 10/05/16 13:39 Dose: 0.125 mg Furosemide (Lasix) 20 mg PO BID [facility] Last Admin: 10/05/16 10:21 Dose: 20 mg Guaifenesin (Robitussin) 100 mg PO Q4H PRN PRN Reason: Cough Milrinone Lactate/Dextrose (Primacor 20mg/100ml D5w) 100 mls @ 5.783 mls/hr IV .[id number] PRN; Protocol PRN Reason: TITRATE PER MD ORDER Last Admin: 10/04/16 17:01 Dose: 5.783 mls/hr Isosorbide Mononitrate (Imdur) 60 mg PO 0600 [facility] Last Admin: 10/05/16 06:09 Dose: 60 mg Levothyroxine Sodium (Synthroid) 112 mcg PO 0600 [facility] Last Admin: 10/05/16 06:09 Dose: 112 mcg Losartan Potassium (Cozaar) 100 mg PO DAILY [facility] Last Admin: 10/05/16 10:21 Dose: 100 mg Magnesium Oxide (Mag-Ox) 400 mg PO TID [facility] Last Admin: 10/05/16 10:22 Dose: 400 mg Metoprolol Succinate (Toprol Xl) 50 mg PO BRK [facility] Last Admin: 10/05/16 09:00 Dose: 50 mg Pantoprazole Sodium (Protonix Ec Tab) 40 mg PO 0600 [facility] Last Admin: 10/05/16 06:09 Dose: 40 mg Warfarin Sodium (Coumadin) 2 mg PO 1800 [facility] PRN Reason: Protocol - Labs Labs: 10/05/16 11:29 10/05/16 06:00 PT 31.9 Seconds (9.9-11.8) H* 10/05/16 06:00 INR 2.95 (0.93-1.08) H 10/05/16 06:00 - Constitutional Appears: No Acute Distress - Head Exam Head Exam: NORMAL INSPECTION - Eye Exam Eye Exam: EOMI, Normal appearance - ENT Exam ENT Exam: Mucous Membranes Moist - Neck Exam Neck Exam: Full ROM, Normal Inspection - Respiratory Exam Respiratory Exam: NORMAL BREATHING PATTERN. absent: Accessory Muscle Use, Wheezes, Respiratory Distress - Cardiovascular Exam Cardiovascular Exam: REGULAR RHYTHM. absent: Bradycardia, Tachycardia - Extremities Exam Extremities Exam: Tenderness. absent: Pedal Edema Additional comments: patient has pain on bottom of right foot: tenderness to palpation. - Neurological Exam Neurological Exam: Alert, Awake, Oriented x3 - Skin Skin Exam: Dry, Intact, Normal Color, Warm Assessment and Plan - Assessment and Plan (Free Text) Assessment: 86F presents with CHF exacerbation. Patient has a PMH of Systolic HF, EF 8.7%, hypothyroid, gout, and afib. 1) Afib 2) CHF, EF 8.7% 3)hypothyroid 4) gout Plan: Diet: HHD, supplemental diet PT eval and treat ordered. f/u HOB elevated OOB as tolerated PRN 1) Afib coumadin 2) CHF, EF 8.7% lasix 20 mg PO Q4H PRN isosorbide mononitrate meoprolol succ digoxin 3)hypothyroid levothyhroxine 4) gout, worsening joint pain colchicine prednisone 20 mg given today 5) Pain: tylenol, <Rangasamy,Ajantha - Last Filed: 10/05/16 15:09> Objective - Vital Signs/Intake and Output Vital Signs (last 24 hours): Temp Pulse Resp BP Pulse Ox 98.5 F 60 18 131/52 L 97 10/05/16 10:17 10/05/16 10:17 10/05/16 10:17 10/05/16 10:21 10/05/16 10:17 Intake and Output: 10/05/16 10/05/16 06:59 18:59 Intake Total 100 Balance 100 - Medications Medications: Current Medications Acetaminophen (Tylenol 325mg Tab) 650 mg PO Q6H PRN PRN Reason: Pain, moderate (4-7) Last Admin: 10/05/16 10:25 Dose: 650 mg Colchicine (Colocrys) 0.6 mg PO DAILY [facility] Last Admin: 10/05/16 10:20 Dose: 0.6 mg Digoxin (Lanoxin) 0.125 mg PO 1400 [facility] Last Admin: 10/05/16 13:39 Dose: 0.125 mg Furosemide (Lasix) 20 mg PO BID [facility] Last Admin: 10/05/16 10:21 Dose: 20 mg Guaifenesin (Robitussin) 100 mg PO Q4H PRN PRN Reason: Cough Milrinone Lactate/Dextrose (Primacor 20mg/100ml D5w) 100 mls @ 5.783 mls/hr IV .[id number] PRN; Protocol PRN Reason: TITRATE PER MD ORDER Last Admin: 10/05/16 14:37 Dose: 5.783 mls/hr Isosorbide Mononitrate (Imdur) 60 mg PO 0600 [facility] Last Admin: 10/05/16 06:09 Dose: 60 mg Levothyroxine Sodium (Synthroid) 112 mcg PO 0600 [facility] Last Admin: 10/05/16 06:09 Dose: 112 mcg Losartan Potassium (Cozaar) 100 mg PO DAILY [facility] Last Admin: 10/05/16 10:21 Dose: 100 mg Magnesium Oxide (Mag-Ox) 400 mg PO TID [facility] Last Admin: 10/05/16 10:22 Dose: 400 mg Metoprolol Succinate (Toprol Xl) 50 mg PO BRK [facility] Last Admin: 10/05/16 09:00 Dose: 50 mg Pantoprazole Sodium (Protonix Ec Tab) 40 mg PO 0600 [facility] Last Admin: 10/05/16 06:09 Dose: 40 mg Warfarin Sodium (Coumadin) 2 mg PO 1800 [facility] PRN Reason: Protocol - Labs Labs: 10/05/16 11:29 10/05/16 11:59 PT 31.9 Seconds (9.9-11.8) H* 10/05/16 06:00 INR 2.95 (0.93-1.08) H 10/05/16 06:00 Attending/Attestation - Attestation I have personally seen and examined this patient.: Yes I have fully participated in the care of the patient.: Yes I have reviewed all pertinent clinical information, including history, physical exam and plan: Yes Notes (Text): 10/05/16 15:08 Attending note; Patient seen and examined in TCU. Patient is a 85-year-old female with a past medical history of cardiomyopathy, AICD, pulmonary hypertension, on home milrinone drip is admitted with Acute decompensated systolic heart failure on chronic CHF. continue I Lasix. Leg swelling is improving. Shortness of breath is improving slowly. Cardiology evaluation with appreciated. INR is 2.9 today. Coumadin on hold. Continue aggressive physical therapy. Upon discharge patient will follow-up with PMD . The diagnosis and treatment discussed with patient in detail. DNI DNR.
[2016-10-05 14:08] LABS: ALBUMIN 3.4 g/dL (3.0-4.8); CALCIUM 8.9 mg/dL (8.4-10.5)
[2016-10-05] MEDS: Milrinone 20mg/100ml D5W 100 ML IV PRN (14:37)
[2016-10-06] MEDS: Levothyroxine 112 MCG TAB PO SCH (05:54)
[2016-10-06] MEDS: Pantoprazole 40 mg EC Tab PO SCH (05:54)
[2016-10-06] MEDS: Milrinone 20mg/100ml D5W 100 ML IV PRN ×2 (05:56→22:15)
[2016-10-06 07:05] LABS: INR 2.35 (0.93-1.08); PROTHROMBIN TIME 25.4 Seconds (9.9-11.8)
[2016-10-06] MEDS: Metoprolol Succinate 50 mg XL Tab PO SCH (08:35)
[2016-10-06] MEDS: Magnesium Oxide 400 mg Tab UD PO SCH ×3 (09:07→17:35)
--- NOTE | 2016-10-06 10:56 | PN ---
DATE: 10/06/2016 SUBJECTIVE: The patient is seen sitting in a chair in Transitional Care Unit. She continues to have exquisite pain involving her left knee. She states that her dyspnea has improved. CURRENT MEDICATIONS: Include colchicine 0.6 mg daily, Coumadin was 5 mg daily, Imdur 60 mg daily, digoxin 0.125 mg daily, Lasix 20 mg b.i.d., magnesium supplement, milrinone infusion, Protonix 40 mg daily, Robitussin, Synthroid 112 mcg daily, Toprol-XL 50 mg daily. OBJECTIVE: GENERAL: She is a very elderly woman who appears uncomfortable because of her knee pain. VITAL SIGNS: Her blood pressure is 130/64 with a pulse of 68, respirations are 16. She is afebrile. HEENT: No JVD. CHEST: Diminished breath sounds at the bases. HEART: PMI displaced laterally with soft tones noted. ABDOMEN: Soft and nontender, normoactive bowel sounds. EXTREMITIES: Trace leg edema, moderate rubor and tenderness of the left knee is noted. IMPRESSION: 1. Decompensated congestive heart failure, [id number], predominantly systolic. 2. Severe left ventricular dysfunction, maintained on milrinone therapy. 3. History of ventricular tachycardia, status post implantable cardioverter-defibrillator implant. 4. Probable gout flare-up. 5. Mitral and tricuspid regurgitation. 6. Paroxysmal atrial fibrillation. RECOMMENDATIONS: Her current cardiac medications should continue. It would be advised for her to increase her colchicine dose for a short term in attempt to control her gout symptoms. Continue monitoring for renal function is advised. We will continue to follow and make further recommendations as appropriate. Dino Thompson MD [facility]
--- NOTE | 2016-10-06 12:25 | RAD ---
PROCEDURE: Left Knee Radiographs. HISTORY: Pain. COMPARISON: None. FINDINGS: BONES: Normal. No fracture. JOINTS: Meniscal calcifications are seen consistent with chondrocalcinosis JOINT EFFUSION: None. OTHER FINDINGS: None. IMPRESSION: Chondrocalcinosis.
[2016-10-06] MEDS: Digoxin 125 mcg (0.125 mg) Tab PO SCH (13:49)
[2016-10-07] MEDS: Levothyroxine 112 MCG TAB PO SCH (05:08)
[2016-10-07] MEDS: Pantoprazole 40 mg EC Tab PO SCH (05:08)
--- NOTE | 2016-10-07 07:53 | CP.PCM.PN ---
Subjective - Date & Time of Evaluation Date of Evaluation: 10/07/16 Time of Evaluation: 07:00 - Subjective Subjective: Stable in TCU. Left knee pain better. No SOB or CP. V/S noted. PE: Lungs: few rhonchi Cor.: S1S2 Abd.: soft Ext. no edema Neuro.: alert Labs 10/06 noted. INR = 2.35. Today's labs pending. ECG 10/03 noted: AV paced. Knee Xray noted. Objective - Vital Signs/Intake and Output Vital Signs (last 24 hours): Temp Pulse Resp BP Pulse Ox 98.4 F 60 18 137/57 L 99 10/07/16 06:00 10/07/16 06:00 10/07/16 06:00 10/07/16 06:00 10/07/16 06:00 Intake and Output: 10/07/16 10/07/16 06:59 18:59 Intake Total 100 Balance 100 - Medications Medications: Current Medications Acetaminophen (Tylenol 325mg Tab) 650 mg PO Q6H PRN PRN Reason: Pain, moderate (4-7) Last Admin: 10/06/16 09:08 Dose: 650 mg Bupivacaine HCl (Marcaine 0.5%) 0.5 ml IJ ONCE ONE Stop: 10/07/16 08:01 Colchicine (Colocrys) 0.6 mg PO Q6H [facility] Stop: 10/09/16 04:01 Last Admin: 10/07/16 05:08 Dose: 0.6 mg Digoxin (Lanoxin) 0.125 mg PO 1400 [facility] Last Admin: 10/06/16 13:49 Dose: 0.125 mg Furosemide (Lasix) 20 mg PO BID [facility] Last Admin: 10/06/16 17:34 Dose: 20 mg Guaifenesin (Robitussin) 100 mg PO Q4H PRN PRN Reason: Cough Milrinone Lactate/Dextrose (Primacor 20mg/100ml D5w) 100 mls @ 5.783 mls/hr IV .[id number] PRN; Protocol PRN Reason: TITRATE PER MD ORDER Last Admin: 10/06/16 22:15 Dose: 5.783 mls/hr Isosorbide Mononitrate (Imdur) 60 mg PO 0600 [facility] Last Admin: 10/07/16 05:08 Dose: 60 mg Levothyroxine Sodium (Synthroid) 112 mcg PO 0600 [facility] Last Admin: 10/07/16 05:08 Dose: 112 mcg Losartan Potassium (Cozaar) 100 mg PO DAILY [facility] Last Admin: 10/06/16 09:07 Dose: 100 mg Magnesium Oxide (Mag-Ox) 400 mg PO TID [facility] Last Admin: 10/06/16 17:35 Dose: 400 mg Methylprednisolone Acetate (Depo-Medrol) 40 mg IM ONCE ONE Stop: 10/07/16 08:01 Metoprolol Succinate (Toprol Xl) 50 mg PO BRK [facility] Last Admin: 10/06/16 08:35 Dose: 50 mg Pantoprazole Sodium (Protonix Ec Tab) 40 mg PO 0600 [facility] Last Admin: 10/07/16 05:08 Dose: 40 mg Warfarin Sodium (Coumadin) 2 mg PO 1800 [facility] PRN Reason: Protocol Last Admin: 10/06/16 17:34 Dose: 2 mg - Labs Labs: 10/05/16 11:29 10/05/16 11:59 PT 25.4 Seconds (9.9-11.8) H 10/06/16 06:30 INR 2.35 (0.93-1.08) H 10/06/16 06:30 Assessment and Plan - Assessment and Plan (Free Text) Assessment: Dyspnea,edema, improved CMP with severe LVD on home milrinone CHF IV VT/ICD PAF CVA Gout, possible acute attack Hypothyroidism Surgeries: back, GB, Hernia Echo: Severe LVD, MR,TR and PH Plan: Ortho Eval. Getting colchicine Q 6 Hrs. Continue cardiac meds and IV milrinone Monitor INR's daily. OOB as mireille/PT/Rehab Efforts
[2016-10-07] MEDS ORDERED: MethylPREDNISolone Depo 40 mg/ml Inj IM ONE (08:00)
[2016-10-07] MEDS ORDERED: Bupivacaine 0.5% Inj(30mL) IJ ONE (08:00)
[2016-10-07 08:27] LABS: BASO # 0.05 K/mm3 (0.0-2.0); BASO % 0.6 % (0.0-3.0); EOS # 0.3 (0.0-0.7); EOS % 3.9 % (1.5-5.0); GRAN # 3.98 (1.4-6.5); GRAN % 50.2 % (50.0-68.0); HEMOGLOBIN 10.8 gm/dL (12.0-16.0); LYMPH # 2.9 (1.2-3.4); LYMPH % 36.6 % (22.0-35.0); MEAN CELL VOLUME 92.9 fL (80.0-105.0); MEAN CORPUSCULAR HEMOGLOBIN 29.7 pg (25.0-35.0); MEAN PLATELET VOLUME 9.9 fl (7.0-11.0); MONO # 0.7 (0.1-0.6); MONO % 8.7 % (1.0-6.0); PLATELET COUNT 238 10^3/uL (120.0-450.0); RBC 3.64 10^6/uL (3.5-6.1); RED CELL DISTRIBUTION WIDTH 15.8 % (11.5-14.5); WHITE BLOOD COUNT 7.9 10^3/ul (4.5-11.0)
[2016-10-07] MEDS: Metoprolol Succinate 50 mg XL Tab PO SCH (08:32)
[2016-10-07 08:39] LABS: ALB/GLOB RATIO 0.9 (1.1-1.8); ALBUMIN 3.3 g/dL (3.0-4.8); CALCIUM 8.7 mg/dL (8.4-10.5)
[2016-10-07 08:50] LABS: INR 1.79 (0.93-1.08); PROTHROMBIN TIME 19.3 Seconds (9.9-11.8)
[2016-10-07] MEDS: Magnesium Oxide 400 mg Tab UD PO SCH ×3 (09:28→17:48)
--- NOTE | 2016-10-07 11:22 | CP.PCM.PN ---
<ToritoEvelin - Last Filed: 10/07/16 19:22> Subjective - Date & Time of Evaluation Date of Evaluation: 10/07/16 Time of Evaluation: 11:18 - Subjective Subjective: PT S&E at bedside. JENNIFER. Patient states she met with Dr. Hope, who gave her an injection in her left knee. PT is tolerating pain well. Patient denies F/ C, N/V, C/D. Objective - Vital Signs/Intake and Output Vital Signs (last 24 hours): Temp Pulse Resp BP Pulse Ox 97.5 F L 60 18 124/62 96 10/07/16 10:49 10/07/16 10:49 10/07/16 10:49 10/07/16 10:49 10/07/16 10:49 Intake and Output: 10/07/16 10/07/16 06:59 18:59 Intake Total 100 Balance 100 - Medications Medications: Current Medications Acetaminophen (Tylenol 325mg Tab) 650 mg PO Q6H PRN PRN Reason: Pain, moderate (4-7) Last Admin: 10/06/16 09:08 Dose: 650 mg Colchicine (Colocrys) 0.6 mg PO Q6H [facility] Stop: 10/09/16 04:01 Last Admin: 10/07/16 09:28 Dose: 0.6 mg Digoxin (Lanoxin) 0.125 mg PO 1400 [facility] Last Admin: 10/06/16 13:49 Dose: 0.125 mg Furosemide (Lasix) 20 mg PO BID [facility] Last Admin: 10/07/16 09:34 Dose: 20 mg Guaifenesin (Robitussin) 100 mg PO Q4H PRN PRN Reason: Cough Milrinone Lactate/Dextrose (Primacor 20mg/100ml D5w) 100 mls @ 5.783 mls/hr IV .[id number] PRN; Protocol PRN Reason: TITRATE PER MD ORDER Last Admin: 10/06/16 22:15 Dose: 5.783 mls/hr Isosorbide Mononitrate (Imdur) 60 mg PO 0600 [facility] Last Admin: 10/07/16 05:08 Dose: 60 mg Levothyroxine Sodium (Synthroid) 112 mcg PO 0600 [facility] Last Admin: 10/07/16 05:08 Dose: 112 mcg Losartan Potassium (Cozaar) 100 mg PO DAILY [facility] Last Admin: 10/07/16 09:28 Dose: 100 mg Magnesium Oxide (Mag-Ox) 400 mg PO TID [facility] Last Admin: 10/07/16 09:28 Dose: 400 mg Metoprolol Succinate (Toprol Xl) 50 mg PO BRK [facility] Last Admin: 10/07/16 08:32 Dose: 50 mg Pantoprazole Sodium (Protonix Ec Tab) 40 mg PO 0600 [facility] Last Admin: 10/07/16 05:08 Dose: 40 mg Warfarin Sodium (Coumadin) 4 mg PO 1800 [facility] PRN Reason: Protocol - Labs Labs: 10/07/16 08:20 10/07/16 08:20 PT 19.3 Seconds (9.9-11.8) H 10/07/16 06:00 INR 1.79 (0.93-1.08) H 10/07/16 06:00 - Constitutional Appears: Non-toxic - Head Exam Head Exam: NORMAL INSPECTION, NORMOCEPHALIC - Eye Exam Eye Exam: EOMI, Normal appearance - ENT Exam ENT Exam: Mucous Membranes Moist - Respiratory Exam Respiratory Exam: Clear to Ausculation Bilateral, NORMAL BREATHING PATTERN. absent: Accessory Muscle Use, Respiratory Distress - Cardiovascular Exam Cardiovascular Exam: REGULAR RHYTHM. absent: Bradycardia, Tachycardia - GI/Abdominal Exam GI & Abdominal Exam: Soft. absent: Firm, Guarding, Rigid, Tenderness, Hypoactive Bowel Sounds - Neurological Exam Neurological Exam: Alert, Awake, Normal Gait - Skin Skin Exam: Dry, Intact, Normal Color, Warm Assessment and Plan - Assessment and Plan (Free Text) Assessment: 86F presents with CHF exacerbation. Patient has a PMH of Systolic HF, EF 8.7%, hypothyroid, gout, and afib. 1) Afib 2) CHF, EF 8.7% 3)hypothyroid 4) gout Plan: Diet: HHD, supplemental diet f/u PT eval and treat HOB elevated OOB as tolerated PRN 1) Afib coumadin 2) CHF, EF 8.7% lasix 20 mg PO Q4H PRN isosorbide mononitrate meoprolol succ digoxin 3)hypothyroid levothyhroxine 4) gout, worsening joint pain colchicine 5) Pain: tylenol Evelin Eng, DO PGY1 <Marvin Guerrero - Last Filed: 10/09/16 12:17> Objective - Vital Signs/Intake and Output Vital Signs (last 24 hours): Temp Pulse Resp BP Pulse Ox 97.7 F 60 20 132/61 100 10/08/16 16:58 10/08/16 16:58 10/08/16 16:58 10/08/16 17:42 10/08/16 16:58 - Labs Labs: 10/07/16 08:20 10/07/16 08:20 PT 14.7 Seconds (9.9-11.8) H 10/08/16 08:00 INR 1.36 (0.93-1.08) H 10/08/16 08:00 Attending/Attestation - Attestation I have personally seen and examined this patient.: Yes I have fully participated in the care of the patient.: Yes I have reviewed all pertinent clinical information, including history, physical exam and plan: Yes Notes (Text): 10/09/16 12:15 Attending note; Patient seen and examined in TCU. Patient is a 85-year-old female with a past medical history of cardiomyopathy, AICD, pulmonary hypertension, on home milrinone drip is admitted with Acute decompensated systolic heart failure on chronic CHF. continue I Lasix. Leg swelling is improving. Shortness of breath is improving slowly. Cardiology evaluation with appreciated. INR is 1.79 today. continue Coumadin. Left knee swelling. s/p steroid injection by DR. Ambriz. continue colchicine. X ray showed chondrocalcinosis. Continue physical therapy. Upon discharge patient will follow-up with PMD . The diagnosis and treatment discussed with patient in detail. DNI DNR.
[2016-10-07] MEDS: Digoxin 125 mcg (0.125 mg) Tab PO SCH (13:58)
[2016-10-07] MEDS: Milrinone 20mg/100ml D5W 100 ML IV PRN (18:03)
[2016-10-08] MEDS: Levothyroxine 112 MCG TAB PO SCH (06:17)
[2016-10-08] MEDS: Pantoprazole 40 mg EC Tab PO SCH (06:17)
--- NOTE | 2016-10-08 07:39 | CP.PCM.PN ---
Subjective - Date & Time of Evaluation Date of Evaluation: 10/08/16 Time of Evaluation: 07:00 - Subjective Subjective: Stable in TCU. Left knee pain better s/p injection. No SOB or CP. V/S noted. PE: Lungs: few rhonchi Cor.: S1S2 Abd.: soft Ext. no edema Neuro.: alert Labs 10/07 noted. INR = 1.79, K+= 5.0. Today's labs pending. ECG 10/03 noted: AV paced. Knee Xray noted. Objective - Vital Signs/Intake and Output Vital Signs (last 24 hours): Temp Pulse Resp BP Pulse Ox 97.4 F L 63 14 143/66 96 10/07/16 17:07 10/07/16 17:07 10/07/16 17:07 10/07/16 17:49 10/07/16 10:49 - Medications Medications: Current Medications Acetaminophen (Tylenol 325mg Tab) 650 mg PO Q6H PRN PRN Reason: Pain, moderate (4-7) Last Admin: 10/06/16 09:08 Dose: 650 mg Colchicine (Colocrys) 0.6 mg PO Q6H [facility] Stop: 10/09/16 04:01 Last Admin: 10/08/16 05:00 Dose: 0.6 mg Digoxin (Lanoxin) 0.125 mg PO 1400 [facility] Last Admin: 10/07/16 13:58 Dose: 0.125 mg Furosemide (Lasix) 20 mg PO BID [facility] Last Admin: 10/07/16 17:49 Dose: 20 mg Guaifenesin (Robitussin) 100 mg PO Q4H PRN PRN Reason: Cough Milrinone Lactate/Dextrose (Primacor 20mg/100ml D5w) 100 mls @ 5.783 mls/hr IV .[id number] PRN; Protocol PRN Reason: TITRATE PER MD ORDER Last Admin: 10/07/16 18:03 Dose: 5.783 mls/hr Isosorbide Mononitrate (Imdur) 60 mg PO 0600 [facility] Last Admin: 10/08/16 06:17 Dose: 60 mg Levothyroxine Sodium (Synthroid) 112 mcg PO 0600 [facility] Last Admin: 10/08/16 06:17 Dose: 112 mcg Losartan Potassium (Cozaar) 100 mg PO DAILY [facility] Last Admin: 10/07/16 09:28 Dose: 100 mg Magnesium Oxide (Mag-Ox) 400 mg PO TID [facility] Last Admin: 10/07/16 17:48 Dose: 400 mg Metoprolol Succinate (Toprol Xl) 50 mg PO BRK [facility] Last Admin: 10/07/16 08:32 Dose: 50 mg Pantoprazole Sodium (Protonix Ec Tab) 40 mg PO 0600 [facility] Last Admin: 10/08/16 06:17 Dose: 40 mg Warfarin Sodium (Coumadin) 4 mg PO 1800 [facility] PRN Reason: Protocol Last Admin: 10/07/16 17:53 Dose: 4 mg - Labs Labs: 10/07/16 08:20 10/07/16 08:20 PT 19.3 Seconds (9.9-11.8) H 10/07/16 06:00 INR 1.79 (0.93-1.08) H 10/07/16 06:00 Assessment and Plan - Assessment and Plan (Free Text) Assessment: Dyspnea,edema, improved CMP with severe LVD on home milrinone CHF IV VT/ICD PAF CVA Gout, possible acute attack Hypothyroidism Surgeries: back, GB, Hernia Echo: Severe LVD, MR,TR and PH Plan: Ortho Eval. Getting colchicine. Knee injected. Continue cardiac meds and IV milrinone Monitor INR's daily. OOB as mireille/PT/Rehab Efforts
--- NOTE | 2016-10-08 08:27 | CON ---
DATE: 10/07/2016 This is an 86-year-old female who denies any history of trauma. The patient has a long history of having left knee problems. The patient has seen an orthopedic surgeon as an outpatient . On examination of the left knee . She does have both medial and lateral joint line tenderness as well as 100 degrees of flexion . LABORATORY DATA: X-rays of the left knee shows degenerative changes calcinosis. No acute fractures or dislocations are appreciated. ASSESSMENT AND PLAN: treatment options and we are going to try a steroid injection to see if this helps calm her pain down. Risks and benefits were discussed and she wants to proceed. Left knee . The plan at this point, weight bear as tolerated and she is going to follow up with her orthopedic surgeon once she gets discharge from the hospital. Zander Hope MD
[2016-10-08] MEDS: Metoprolol Succinate 50 mg XL Tab PO SCH (08:33)
[2016-10-08 08:39] LABS: INR 1.36 (0.93-1.08); PROTHROMBIN TIME 14.7 Seconds (9.9-11.8)
[2016-10-08] MEDS: Magnesium Oxide 400 mg Tab UD PO SCH ×3 (09:35→17:42)
[2016-10-08 10:47] VITALS: TEMP 97.7; O2SAT 100
[2016-10-08] MEDS: Milrinone 20mg/100ml D5W 100 ML IV PRN (12:43)
[2016-10-08] MEDS: Digoxin 125 mcg (0.125 mg) Tab PO SCH (13:44)
[2016-10-08 13:46] VITALS: PULSE 64
--- NOTE | 2016-10-08 16:49 | CP.PCM.DIS ---
<Evelin Ugarte - Last Filed: 10/08/16 16:56> Provider - Provider Date of Admission: 09/30/16 14:02 Attending physician: Marvin Guerrero MD Consults: Dr. Hope Time Spent in preparation of Discharge (in minutes): 20 Hospital Course - Lab Results Lab Results: Most Recent Lab Values WBC 7.9 10^3/ul (4.5-11.0) 10/07/16 08:20 RBC 3.64 10^6/uL (3.5-6.1) 10/07/16 08:20 Hgb 10.8 gm/dL (12.0-16.0) L 10/07/16 08:20 Hct 33.8 % (36.0-48.0) L 10/07/16 08:20 MCV 92.9 fL (80.0-105.0) 10/07/16 08:20 MCH 29.7 pg (25.0-35.0) 10/07/16 08:20 MCHC 32.0 g/dl (31.0-37.0) 10/07/16 08:20 RDW 15.8 % (11.5-14.5) H 10/07/16 08:20 Plt Count 238 10^3/uL (120.0-450.0) 10/07/16 08:20 MPV 9.9 fl (7.0-11.0) 10/07/16 08:20 Gran % 50.2 % (50.0-68.0) 10/07/16 08:20 Lymph % (Auto) 36.6 % (22.0-35.0) H 10/07/16 08:20 [place] % (Auto) 8.7 % (1.0-6.0) H 10/07/16 08:20 Eos % (Auto) 3.9 % (1.5-5.0) 10/07/16 08:20 Baso % (Auto) 0.6 % (0.0-3.0) 10/07/16 08:20 Gran # 3.98 (1.4-6.5) 10/07/16 08:20 Lymph # 2.9 (1.2-3.4) 10/07/16 08:20 [place] # 0.7 (0.1-0.6) H 10/07/16 08:20 Eos # 0.3 (0.0-0.7) 10/07/16 08:20 Baso # 0.05 K/mm3 (0.0-2.0) 10/07/16 08:20 PT 14.7 Seconds (9.9-11.8) H 10/08/16 08:00 INR 1.36 (0.93-1.08) H 10/08/16 08:00 Sodium 135 mmol/L (132-148) 10/07/16 08:20 Potassium 5.0 mmol/L (3.6-5.0) 10/07/16 08:20 Chloride 98 mmol/L (98-107) 10/07/16 08:20 Carbon Dioxide 29 mmol/L (21-33) 10/07/16 08:20 Anion Gap 13 (10-20) 10/07/16 08:20 BUN 40 mg/dL (7-21) H 10/07/16 08:20 Creatinine 1.2 mg/dL (0.5-1.4) 10/07/16 08:20 Est GFR ( Amer) 52 10/07/16 08:20 Est GFR (Non-Af Amer) 43 10/07/16 08:20 Random Glucose 85 mg/dL (70-110) 10/07/16 08:20 Uric Acid 7.5 mg/dL (2.5-6.2) H 10/08/16 08:00 Calcium 8.7 mg/dL (8.4-10.5) 10/07/16 08:20 Magnesium 2.2 mg/dL (1.7-2.2) 10/03/16 06:00 Total Bilirubin 1.0 mg/dL (0.2-1.3) 10/07/16 08:20 AST 52 U/L (15-39) H 10/07/16 08:20 ALT 54 U/L (7-56) 10/07/16 08:20 Alkaline Phosphatase 100 U/L (38-133) 10/07/16 08:20 Total Protein 6.9 g/dL (5.8-8.3) 10/07/16 08:20 Albumin 3.3 g/dL (3.0-4.8) 10/07/16 08:20 Globulin 3.6 gm/dL 10/07/16 08:20 Albumin/Globulin Ratio 0.9 (1.1-1.8) L 10/07/16 08:20 Vitamin B6 < 2.0 ng/mL (2.1-21.7) L 10/04/16 19:20 Vitamin B12 737 pg/mL (239-931) 10/04/16 11:59 - Hospital Course Hospital Course: 86 year old female presented with complaints of shortness of breath and bilateral lower leg swelling on 09/25. past medical history of systolic heart failure, atrial fibrillation, and hypothyroidism Cardiology was consulted. ECG ordered and showed no acute changes. An ECHO was not ordered because one had been done in March that showed EF of 8.7%. Patient treated symptomatically with IV Lasix 40mg BID as well as continuance of her home medications once she was admitted. Patient as transitioned to Lasix 40mg POBID. Patient had no major events during the course of the next 5 days and was managed symptomatically until her discharge to the TCU for deconditioning on 09/30. During her stay in the TCU, patient complained of continued foot and knee pain which is noted to be chronic. This pain has not changed in quality or intensity She has no other complaints at this time. Dr. Hope was consulted to evaluate and a left knee steroid injection was placed. PMH: Systolic Heart Failure w/ ICD placement, Atrial Fibrillation w/ PPM, Hypothyroidism, Gout PSH: Laminectomy, Cholecystectomy, Hernia Repair FH: non-contributory Allergies: codeine, penicillins Social hx: former smoker - quit 1990. Denies alcohol or illicit drug use PMD: Dr. Green Silverware Supervisor: Dr. Alcantara Imaging" Dr. Alcantara: CHF Dr. Hope: Left Knee Pain 10/06 XRAY knee: chondrocalcinosis 10/01 XRAY knee: no evidence of acute displaced fracture or dislocation. consistent with chondrocalcinosis 10/03 EKbpm, paced rate Patient was seen and examined at beside today. Patient states pain, but tolerates it well. Patient denies CP, F/C, N/V. Patient states she's doing better and is aware of plans for discharge to [facility]. - Date & Time of H&P Date of H&P: 10/08/16 Time of H&P: 16:58 Discharge Exam - Head Exam Head Exam: NORMAL INSPECTION, NORMOCEPHALIC - Eye Exam Eye Exam: EOMI, Normal appearance - ENT Exam ENT Exam: Mucous Membranes Moist - Neck Exam Neck exam: Full Rom - Respiratory Exam Respiratory Exam: Decreased Breath Sounds, NORMAL BREATHING PATTERN. absent: Accessory Muscle Use, Respiratory Distress - Cardiovascular Exam Cardiovascular Exam: REGULAR RHYTHM - GI/Abdominal Exam GI & Abdominal Exam: Soft, Unremarkable. absent: Tenderness - Extremities Exam Extremities exam: tenderness Additional comments: arthritic bilateral knees - Neurological Exam Neurological exam: Alert, Oriented x3 - Skin Skin Exam: Dry, Intact, Normal Color, Warm Discharge Plan - Follow Up Plan Condition: IMPROVED Disposition: REHAB FACILITY/REHAB UNIT Patient education suggested?: Yes Instructions: Dobutamine/Dextrose Premix (By injection), Heart Failure (DC), Heart Failure (GEN), Pacemaker (DC), Pacemaker (GEN), Pulmonary Edema (DC), Pulmonary Edema (GEN), Fall Prevention for Older Adults (GEN), Bacterial Pneumonia (DC), Ascites (DC), Ascites (GEN) Additional Instructions: Continue with current medications monitor uric acid levels if patient admits to pain in joints take warfarin 6mg POQD for two days 10/09, 10/10, (recheck INR on wednesday 10/11) <Jessica GALLARDO,[facility] - Last Filed: 10/08/16 17:26> Provider - Provider Date of Admission: 09/30/16 14:02 Attending physician: Marvin Guerrero MD Hospital Course - Lab Results Lab Results: Most Recent Lab Values WBC 7.9 10^3/ul (4.5-11.0) 10/07/16 08:20 RBC 3.64 10^6/uL (3.5-6.1) 10/07/16 08:20 Hgb 10.8 gm/dL (12.0-16.0) L 10/07/16 08:20 Hct 33.8 % (36.0-48.0) L 10/07/16 08:20 MCV 92.9 fL (80.0-105.0) 10/07/16 08:20 MCH 29.7 pg (25.0-35.0) 10/07/16 08:20 MCHC 32.0 g/dl (31.0-37.0) 10/07/16 08:20 RDW 15.8 % (11.5-14.5) H 10/07/16 08:20 Plt Count 238 10^3/uL (120.0-450.0) 10/07/16 08:20 MPV 9.9 fl (7.0-11.0) 10/07/16 08:20 Gran % 50.2 % (50.0-68.0) 10/07/16 08:20 Lymph % (Auto) 36.6 % (22.0-35.0) H 10/07/16 08:20 [place] % (Auto) 8.7 % (1.0-6.0) H 10/07/16 08:20 Eos % (Auto) 3.9 % (1.5-5.0) 10/07/16 08:20 Baso % (Auto) 0.6 % (0.0-3.0) 10/07/16 08:20 Gran # 3.98 (1.4-6.5) 10/07/16 08:20 Lymph # 2.9 (1.2-3.4) 10/07/16 08:20 [place] # 0.7 (0.1-0.6) H 10/07/16 08:20 Eos # 0.3 (0.0-0.7) 10/07/16 08:20 Baso # 0.05 K/mm3 (0.0-2.0) 10/07/16 08:20 PT 14.7 Seconds (9.9-11.8) H 10/08/16 08:00 INR 1.36 (0.93-1.08) H 10/08/16 08:00 Sodium 135 mmol/L (132-148) 10/07/16 08:20 Potassium 5.0 mmol/L (3.6-5.0) 10/07/16 08:20 Chloride 98 mmol/L (98-107) 10/07/16 08:20 Carbon Dioxide 29 mmol/L (21-33) 10/07/16 08:20 Anion Gap 13 (10-20) 10/07/16 08:20 BUN 40 mg/dL (7-21) H 10/07/16 08:20 Creatinine 1.2 mg/dL (0.5-1.4) 10/07/16 08:20 Est GFR ( Amer) 52 10/07/16 08:20 Est GFR (Non-Af Amer) 43 10/07/16 08:20 Random Glucose 85 mg/dL (70-110) 10/07/16 08:20 Uric Acid 7.5 mg/dL (2.5-6.2) H 10/08/16 08:00 Calcium 8.7 mg/dL (8.4-10.5) 10/07/16 08:20 Magnesium 2.2 mg/dL (1.7-2.2) 10/03/16 06:00 Total Bilirubin 1.0 mg/dL (0.2-1.3) 10/07/16 08:20 AST 52 U/L (15-39) H 10/07/16 08:20 ALT 54 U/L (7-56) 10/07/16 08:20 Alkaline Phosphatase 100 U/L (38-133) 10/07/16 08:20 Total Protein 6.9 g/dL (5.8-8.3) 10/07/16 08:20 Albumin 3.3 g/dL (3.0-4.8) 10/07/16 08:20 Globulin 3.6 gm/dL 10/07/16 08:20 Albumin/Globulin Ratio 0.9 (1.1-1.8) L 10/07/16 08:20 Vitamin B6 < 2.0 ng/mL (2.1-21.7) L 10/04/16 19:20 Vitamin B12 737 pg/mL (239-931) 10/04/16 11:59 Attending/Attestation - Attestation I have personally seen and examined this patient.: Yes I have fully participated in the care of the patient.: Yes I have reviewed all pertinent clinical information, including history, physical exam and plan: Yes Notes (Text): 10/08/16 17:20 Patient was seen and examined with medical driver. 86 year old female with a past medical history of systolic heart failure, atrial fibrillation, and hypothyroidism was admitted with acute on chronic systolic CHF, was initially on telemetry floor and then was transferred to TCU. Shortness of breath and leg swelling improved with diuresis and Milrinone infusion. Creatinin is at base line on ,Patient is on oral lasix. Patient INR is not therapeutic warfarin dose has been increased to 6 mg po daily , will need repeat INR in 3 days ( 10/11/16).Warfarin dose may need to be changed based on INR. , Patient is going to be discharged to [facility]. Prognosis is guarded. Management plan was discussed in detail with patient Education was provided.
[2016-10-08 16:59] VITALS: BP 132/61; PULSE 60; RESP 20
== END 2016-10-09 00:33 | DRG 292 ==
LOC: TRCU 14:02
PROVIDERS: ADMIT Internal Medicine; ATTEND Internal Medicine
PROC: F07Z9FZ Gait Training/Functional Ambulation Treatment using Assistive, Adaptive, Supportive or Protective Equipment (ICD-10-PCS; principal; 2016-10-01)
PROC: F08Z4FZ Home Management Treatment using Assistive, Adaptive, Supportive or Protective Equipment (ICD-10-PCS; 2016-10-01)
PROC: 3E0U33Z Introduction of Anti-inflammatory into Joints, Percutaneous Approach (ICD-10-PCS; 2016-10-07)
DX: I50.23 Acute on chronic systolic (congestive) heart failure (principal); I42.9 Cardiomyopathy, unspecified; I27.2 Other secondary pulmonary hypertension; I48.0 Paroxysmal atrial fibrillation; J44.9 Chronic obstructive pulmonary disease, unspecified; E03.9 Hypothyroidism, unspecified; M10.9 Gout, unspecified; Z66 Do not resuscitate; I08.1 Rheumatic disorders of both mitral and tricuspid valves; M25.562 Pain in left knee; Z79.01 Long term (current) use of anticoagulants; Z95.810 Presence of automatic (implantable) cardiac defibrillator; Z86.73 Personal history of transient ischemic attack (TIA), and cerebral infarction without residual deficits; Z87.891 Personal history of nicotine dependence

== ENCOUNTER 2017-01-31 13:49 | Inpatient (IN) | payer MEDICARE, OTHER ==
--- NOTE | 2017-01-31 14:16 | ED PDOC ---
Arrival/HPI - General Chief Complaint: Shortness Of Breath Time Seen by Provider: 01/31/17 13:59 Historian: Patient, Family - History of Present Illness Time/Duration: Other (Several days) Symptom Onset: Gradual Symptom Course: Worsening Severity Level: Moderate Activities at Onset: Rest Associated Symptoms (Text): 01/31/17 14:14 Patient complains of a several day history of worsening shortness of breath, especially dyspnea on exertion. Complains of increasing pedal edema and weight gain. She has a history of CHF and is on a chronic milrinone drip. She reports she has been taking her Lasix 80 mg. She denies any chest pain. She quit smoking 25 years ago. No cough congestion or URI. Past Medical History - Provider Review Nursing Documentation Reviewed: Yes - Infectious Disease Hx of Infectious Diseases: None - Tetanus Immunization Tetanus Immunization: Unknown - Cardiac Hx Congestive Heart Failure: Yes - Pulmonary Hx Chronic Obstructive Pulmonary Disease (COPD): Yes - Neurological HX Cerebrovascular Accident: Yes - HEENT Hx HEENT Disorder: Yes (eyeglasses) Hx Blind: No Hx Cataracts: Yes (r eye 01/24/13) - Renal Hx Renal Disorder: No - Endocrine/Metabolic Hx Hypothyroidism: Yes - Hematological/Oncological Hx Blood Transfusions: No Hx Blood Transfusion Reaction: No - Integumentary Hx Dermatological Disorder: Yes (b/l pedal edema) - Musculoskeletal/Rheumatological Hx Falls: Yes - Gastrointestinal Hx Gastrointestinal Disorders: Yes (HERNIA SX,CHOLEYCSTECTOMY) - Genitourinary/Gynecological Hx Genitourinary Disorders: No Hx Reproductive Disorders: No - Psychiatric Hx Emotional Abuse: No Hx Physical Abuse: No Hx Substance Use: No - Surgical History Hx Cholecystectomy: Yes Other/Comment: hammer toe surgery, laminectomy in 1990, had an abdominal hernia repair. pacemaker/defib in L chest wall. R chest wall port placement - Anesthesia Hx Anesthesia: Yes Hx Anesthesia Reactions: No Hx Malignant Hyperthermia: No - Suicidal Assessment Feels Threatened In Home Enviroment: No Family/Social History - Physician Review Nursing Documentation Reviewed: Yes Family/Social History: Unknown Family HX Smoking Status: Former Smoker Hx Alcohol Use: No Hx Substance Use: No Allergies/Home Meds Allergies/Adverse Reactions: Allergies codeine Allergy (Verified 01/31/17 14:21) SHORTNESS OF BREATH Penicillins Allergy (Verified 01/31/17 14:21) RASH Home Medications: Home Meds Medication Instructions Recorded Confirmed Furosemide [Lasix] 40 mg PO BID 01/31/17 01/31/17 Metoprolol Succinate [Toprol XL] 25 mg PO BID 01/31/17 01/31/17 Potassium Chloride [K-Dur 20 mEq 20 meq PO DAILY 01/31/17 01/31/17 ER Tab] Review of Systems - Physician Review All systems were reviewed & negative as marked: Yes - Review of Systems Constitutional: Fatigue. absent: Fevers Respiratory: SOB. absent: Cough, Sputum, Wheezing Cardiovascular: absent: Chest Pain, Palpitations, Syncope Gastrointestinal: absent: Abdominal Pain, Nausea, Vomiting Genitourinary Female: Normal Neurological: Normal Physical Exam Vital Signs Pulse Resp BP Pulse Ox 01/31/17 14:51 70 20 121/67 99 01/31/17 14:38 131/97 H 01/31/17 14:25 20 99 01/31/17 14:14 80 17 131/97 H 100 Temperature: Afebrile Blood Pressure: Normal Pulse: Regular Respiratory Rate: Normal Appearance: Positive for: Well-Appearing, Non-Toxic, Uncomfortable Pain Distress: None Mental Status: Positive for: Alert and Oriented X 3 - Systems Exam Head: Present: Atraumatic, Normocephalic Pupils: Present: PERRL Extroacular Muscles: Present: EOMI Conjunctiva: Present: Normal Mouth: Present: Moist Mucous Membranes Pharnyx: No: ERYTHEMA, EXUDATE, TONSILS ENLARGED Neck: Present: Normal Range of Motion Respiratory/Chest: Present: Decreased Breath Sounds, Rales (bibasilar rales). No: Respiratory Distress, Accessory Muscle Use, Wheezes, Retracting, Rhonchi, Tachypneic Cardiovascular: Present: Regular Rate and Rhythm, Normal S1, S2. No: Murmurs Abdomen: Present: Normal Bowel Sounds. No: Tenderness, Distention, Peritoneal Signs, Rebound, Guarding Upper Extremity: Present: Normal Inspection. No: Cyanosis, Edema Lower Extremity: Present: Edema (2+ bilateral lower extremity edema) Neurological: Present: GCS=15, CN II-XII Intact, Speech Normal, Motor Func Grossly Intact Skin: Present: Warm, Dry, Normal Color. No: Rashes Psychiatric: Present: Alert, Oriented x 3, Normal Insight, Normal Concentration Medical Decision Making ED Course and Treatment: 01/31/17 14:16 EKG is pacing rate approximately 70 01/31/2017 14:50 Chest X-ray IMPRESSION: Mild vascular congestion. Dictator: Riky Patel MD - Lab Interpretations Lab Results: 01/31/17 14:30 01/31/17 15:09 Lab Results 01/31/17 15:09: Sodium 139, Potassium 4.4, Chloride 100, Carbon Dioxide 29, Anion Gap 15, BUN 26 H, Creatinine 1.3 H, Est GFR ( Amer) 47, Est GFR ( Non-Af Amer) 39, Random Glucose 88, Calcium 9.5, Total Bilirubin 1.5 H, AST 27, ALT 26, Alkaline Phosphatase 109, Lactate Dehydrogenase 640, Total Creatine Kinase 49, Troponin I 0.07, NT-Pro-B Natriuret Pep 5540 H, Total Protein 7.8, Albumin 3.9, Globulin 3.9, Albumin/Globulin Ratio 1.0 L 01/31/17 15:08: PT 32.3 H, INR 2.90 H, APTT 36.9 H 01/31/17 14:30: WBC 6.6, RBC 3.47 L, Hgb 10.8 L, Hct 33.5 L, MCV 96.5, MCH 31.1 , MCHC 32.2, RDW 16.7 H, Plt Count 204, MPV 11.1 H, Gran % 62.0, Lymph % (Auto) 26.2, [place] % (Auto) 9.3 H, Eos % (Auto) 1.7, Baso % (Auto) 0.8, Gran # 4.12, Lymph # 1.7, [place] # 0.6, Eos # 0.1, Baso # 0.05 - RAD Interpretation Radiology Orders: 01/31/17 14:12 CHEST PORTABLE [RAD] Stat Chest one view shows cardiomegaly CHF and a pacemaker present Printing Roller Handler: Radiologist - Medication Orders Current Medication Orders: Discontinued Medications Furosemide (Lasix) 80 mg IVP ONCE ONE Stop: 01/31/17 14:14 Last Admin: 01/31/17 14:38 Dose: 80 mg MAR Blood Pressure Document 01/31/17 14:38 SE (Rec: 01/31/17 14:38 SE [id number]) Blood Pressure Blood Pressure (100/60-150/90 mm Hg) 131/97 IVP Administration Document 01/31/17 14:38 SE (Rec: 01/31/17 14:38 SE [id number]) Charges for Administration # of IVP Administrations 1 Disposition/Present on Arrival - Present on Arrival Any Indicators Present on Arrival: No History of DVT/PE: No History of Uncontrolled Diabetes: No Urinary Catheter: No History of Decub. Ulcer: No History Surgical Site Infection Following: None - Disposition Have Diagnosis and Disposition been Completed?: Yes Diagnosis: Congestive heart failure, Dyspnea Disposition: HOSPITALIZED Disposition Time: 16:12 Patient Plan: Observation, Telemetry Condition: FAIR Discharge Instructions (ExitCare): Heart Failure (ED) Referrals: Boaz Green MD [Primary Care Provider] - Follow up with primary Forms: Glyde (Maori)
[2017-01-31 14:44] LABS: BASO # 0.05 K/mm3 (0.0-2.0); BASO % 0.8 % (0.0-3.0); EOS # 0.1 (0.0-0.7); EOS % 1.7 % (1.5-5.0); GRAN # 4.12 (1.4-6.5); HEMATOCRIT 33.5 % (36.0-48.0); LYMPH # 1.7 (1.2-3.4); LYMPH % 26.2 % (22.0-35.0); MEAN CELL VOLUME 96.5 fl (80.0-105.0); MEAN CORPUSCULAR HEMOGLOBIN 31.1 pg (25.0-35.0); MEAN CORPUSCULAR HGB CONC 32.2 g/dl (31.0-37.0); MEAN PLATELET VOLUME 11.1 fl (7.0-11.0); MONO # 0.6 (0.1-0.6); MONO % 9.3 % (1.0-6.0); RED CELL DISTRIBUTION WIDTH 16.7 % (11.5-14.5); WHITE BLOOD COUNT 6.6 10^3/ul (4.5-11.0)
--- NOTE | 2017-01-31 14:52 | RAD ---
HISTORY: sob COMPARISON: 09/25/2016 FINDINGS: LUNGS: No active pulmonary disease. PLEURA: No significant pleural effusion identified, no pneumothorax apparent. CARDIOVASCULAR: Moderate cardiomegaly. Mild vascular congestion. OSSEOUS STRUCTURES: No significant abnormalities. VISUALIZED UPPER ABDOMEN: Normal. OTHER FINDINGS: Dual lead pacemaker. Right-sided Port-A-Cath IMPRESSION: Mild vascular congestion
[2017-01-31 15:26] LABS: INR 2.9 (0.93-1.08); PARTIAL THROMBOPLASTIN TIME 36.9 Seconds (25.1-36.5)
[2017-01-31 15:33] LABS: TROPONIN I 0.07 ng/mL
[2017-01-31 15:39] LABS: BILIRUBIN,TOTAL 1.5 mg/dL (0.2-1.3); CALCIUM 9.5 mg/dL (8.4-10.5); POTASSIUM 4.4 mmol/L (3.6-5.0); TOTAL PROTEIN 7.8 g/dL (5.8-8.3)
[2017-01-31] MEDS ORDERED: [UNRECOGNIZED DRUG - OTHER] IV SCH (17:30)
[2017-01-31] MEDS ORDERED: MILRINONE 20 MG/100 ML IV SCH (17:30)
[2017-01-31] MEDS ORDERED: Milrinone 20mg/100ml D5W 100 ML IV PRN (17:32)
--- NOTE | 2017-01-31 17:38 | CP.PCM.HP ---
Addendum entered and electronically signed by Marcos Leroy DO 01/31/17 17: 54: Plan: DAPHNE Likely secondary to CHF exacerbation Will continue to trend creatinine daily Original Note: <Marcos Leroy - Last Filed: 01/31/17 17:33> History of Present Illness - History of Present Illness History of Present Illness: 86 y/o F with PMH of CHF with EF of 8% and ICD placement on home Milrinone , A- fib, hypothyroidism, and gout presents to the hospital for a 2 week history of progressive SOB. Pt states she first noticed her legs becoming more edematous and she became progressively short of breath. Pt becomes short of breath when walking to the bathroom. Pt states she has been compliant with all her medications. Pt is on a home Milrinone drip that is changed twice weekly, on Tuesday and Tuesday. Pt was last here in 09/2016 for CHF exacerbation. Pt was sent to [facility] for CESARIO. Pt did not follow up with deicer repairer electric after leaving hospital. Pt currently lives at home by herself. She uses a cane for ambulation. Denies CP, N/V/D, fever, chills, recent sick contacts, blurry vision, numbness, tingling, falls, cold/heat intolerance. PMH: Systolic Heart Failure w/ ICD placement, Atrial Fibrillation, Hypothyroidism, Gout PSH: Laminectomy, Cholecystectomy, Hernia Repair FH: non-contributory Allergies: codeine, penicillins Social hx: former smoker, quit 1990. Denies alcohol or illicit drug use Medications: As per MAY PMD: Dr. Green Concert Pianist: Dr. Alcantara Present on Admission - Present on Admission Any Indicators Present on Admission: No Review of Systems - Review of Systems Review of Systems: 12 pt ROS as per HPI, otherwise negative. Past Patient History - Infectious Disease Hx of Infectious Diseases: None - Tetanus Immunizations Tetanus Immunization: Unknown - Past Medical History & Family History Past Medical History?: Yes - Past Social History Smoking Status: Former Smoker - CARDIAC Hx Congestive Heart Failure: Yes - PULMONARY Hx Chronic Obstructive Pulmonary Disease (COPD): Yes - NEUROLOGICAL HX Cerebrovascular Accident: Yes - HEENT Hx HEENT Problems: Yes (eyeglasses) Hx Blind: No Hx Cataracts: Yes (r eye 01/24/13) - RENAL Hx Chronic Kidney Disease: No - ENDOCRINE/METABOLIC Hx Hypothyroidism: Yes - HEMATOLOGICAL/ONCOLOGICAL Hx Blood Transfusions: No Hx Blood Transfusion Reaction: No - INTEGUMENTARY Hx Dermatological Problems: Yes (b/l pedal edema) - MUSCULOSKELETAL/RHEUMATOLOGICAL Hx Falls: Yes - GASTROINTESTINAL Hx Gastrointestinal Disorders: Yes (HERNIA SX,CHOLEYCSTECTOMY) - GENITOURINARY/GYNECOLOGICAL Hx Genitourinary Disorders: No Hx Reproductive Disorders: No - PSYCHIATRIC Hx Emotional Abuse: No Hx Physical Abuse: No Hx Substance Use: No - SURGICAL HISTORY Hx Cholecystectomy: Yes Other/Comment: hammer toe surgery, laminectomy in 1990, had an abdominal hernia repair. pacemaker/defib in L chest wall. R chest wall port placement - ANESTHESIA Hx Anesthesia: Yes Hx Anesthesia Reactions: No Hx Malignant Hyperthermia: No Meds Allergies/Adverse Reactions: Allergies Allergy/AdvReac Type Severity Reaction Status Date / Time codeine Allergy SHORTNESS Verified 01/31/17 21:19 OF BREATH Penicillins Allergy RASH Verified 01/31/17 21:19 Physical Exam - Constitutional Appears: Non-toxic, No Acute Distress - Head Exam Head Exam: ATRAUMATIC, NORMAL INSPECTION, NORMOCEPHALIC - Eye Exam Eye Exam: EOMI, Normal appearance - ENT Exam ENT Exam: Mucous Membranes Moist, Normal Exam - Neck Exam Neck exam: Positive for: Normal Inspection. Negative for: Lymphadenopathy - Respiratory Exam Respiratory Exam: Rales (Mild b/l lower lung kraus), NORMAL BREATHING PATTERN. absent: Rhonchi, Wheezes - Cardiovascular Exam Cardiovascular Exam: RRR, +S1, +S2 Additional comments: Chest port for Milrinone - GI/Abdominal Exam GI & Abdominal Exam: Normal Bowel Sounds, Soft. absent: Tenderness - Extremities Exam Extremities exam: Positive for: pedal edema (2+ to knees b/l). Negative for: calf tenderness - Neurological Exam Neurological exam: Alert, CN II-XII Intact, Oriented x3 - Psychiatric Exam Psychiatric exam: Normal Affect, Normal Mood - Skin Skin Exam: Intact, Normal Color, Warm Results - Vital Signs Recent Vital Signs: Last Vital Signs Temp Pulse 73 01/31/17 17:03 Resp 18 01/31/17 17:03 BP 122/68 01/31/17 17:03 Pulse Ox 100 01/31/17 17:03 - Labs Result Diagrams: 01/31/17 14:30 01/31/17 15:09 Labs: Laboratory Results - last 24 hr 01/31/17 01/31/17 01/31/17 14:30 15:08 15:09 WBC 6.6 RBC 3.47 L Hgb 10.8 L Hct 33.5 L MCV 96.5 MCH 31.1 MCHC 32.2 RDW 16.7 H Plt Count 204 MPV 11.1 H Gran % 62.0 Lymph % (Auto) 26.2 [place] % (Auto) 9.3 H Eos % (Auto) 1.7 Baso % (Auto) 0.8 Gran # 4.12 Lymph # 1.7 [place] # 0.6 Eos # 0.1 Baso # 0.05 PT 32.3 H INR 2.90 H APTT 36.9 H Sodium 139 Potassium 4.4 Chloride 100 Carbon Dioxide 29 Anion Gap 15 BUN 26 H Creatinine 1.3 H Est GFR ( Amer) 47 Est GFR (Non-Af Amer) 39 Random Glucose 88 Calcium 9.5 Total Bilirubin 1.5 H AST 27 ALT 26 Alkaline Phosphatase 109 Lactate Dehydrogenase 640 Total Creatine Kinase 49 Troponin I 0.07 NT-Pro-B Natriuret Pep 5540 H Total Protein 7.8 Albumin 3.9 Globulin 3.9 Albumin/Globulin Ratio 1.0 L Assessment & Plan - Assessment and Plan (Free Text) Plan: 86 y/o F with PMH of CHF with EF of 8% and ICD placement, A-fib, hypothyroidism , and gout presents with CHF exacerbation. Pt will receive diuretic therapy and have home meds restarted. Will change Warfarin to 4 mg as INR is 2.9. Will consult cardiology and monitor pt closely. 1. CHF exacerbation Lasix 40 mg daily Continue Milrinone drip Continue home Digoxin, Imdur, Cozaar Hold Toprol in acute exacerbation Strict I's and O's Daily weights Head of bed to 30 degrees HHD, low salt diet Cardiology consulted 2. A-fib Rate controlled Change Warfarin to 4 mg daily INR daily 3. Hypothyroidism Continue Synthroid 4. Gout Continue Colchicine 5. PPX Warfarin Protonix Mariaa, PGY-2 <Marvin Guerrero - Last Filed: 02/01/17 12:38> Results - Vital Signs Recent Vital Signs: Last Vital Signs Temp 98.1 F 02/01/17 05:32 Pulse 72 02/01/17 10:00 Resp 14 02/01/17 05:32 BP 128/75 02/01/17 10:27 Pulse Ox 91 L 02/01/17 05:32 - Labs Result Diagrams: 02/01/17 06:30 02/01/17 06:30 Attending/Attestation - Attestation I have personally seen and examined this patient.: Yes I have fully participated in the care of the patient.: Yes I have reviewed all pertinent clinical information: Yes Notes (Text): attending note; Patient seen and examined with resident in ER. Patient is a 85-year-old female with a past medical history of cardiomyopathy, AICD, pulmonary hypertension, on home milrinone drip is admitted with Acute decompensated systolic heart failure on chronic CHF. started on IV Lasix. strict input and output ordered. Daily weight ordered. The patient gained about 10 pounds over a few weeks. Patient is also noncompliance with low salt diet. Cardiology evaluation with Requested. Continue milrinone drip. INR is 2.9 today. decreased the dose of Coumadin. monitor INR closely. Upon discharge patient will follow-up with PMD . The diagnosis and treatment discussed with patient in detail.
[2017-01-31] MEDS: Milrinone 20mg/100ml D5W 100 ML IV PRN (17:58)
--- NOTE | 2017-01-31 18:54 | CARD ---
APPROVED REPORT EKG Measurement Heart [id number] P96 [id number] <Conclusion> Electronic ventricular pacemaker
[2017-01-31] MEDS ORDERED: Pneumococcal 23-Valent Vaccine IM ONE (23:20)
[2017-01-31] MEDS ORDERED: Influenza Vaccine 60 mcg/0.5 mL SYR (4YR UP) IM ONE (23:20)
[2017-02-01] MEDS: Levothyroxine 112 MCG TAB PO SCH (05:47)
[2017-02-01] MEDS: Pantoprazole 40 mg EC Tab PO SCH (05:47)
[2017-02-01 06:59] LABS: BASO # 0.08 K/mm3 (0.0-2.0); BASO % 1.1 % (0.0-3.0); EOS # 0.1 (0.0-0.7); EOS % 1.6 % (1.5-5.0); GRAN # 3.85 (1.4-6.5); LYMPH # 2.4 (1.2-3.4); LYMPH % 34.3 % (22.0-35.0); MEAN CELL VOLUME 96.4 fl (80.0-105.0); MEAN CORPUSCULAR HEMOGLOBIN 30.4 pg (25.0-35.0); MEAN CORPUSCULAR HGB CONC 31.6 g/dl (31.0-37.0); MEAN PLATELET VOLUME 10.8 fl (7.0-11.0); MONO # 0.6 (0.1-0.6); RED CELL DISTRIBUTION WIDTH 16.1 % (11.5-14.5)
[2017-02-01 07:00] LABS: BILIRUBIN,TOTAL 1.8 mg/dL (0.2-1.3); CALCIUM 9.2 mg/dL (8.4-10.5); POTASSIUM 4.1 mmol/L (3.6-5.0)
[2017-02-01] MEDS: Milrinone 20mg/100ml D5W 100 ML IV PRN (08:14)
[2017-02-01] MEDS ORDERED: Potassium Chloride 20 mEq ER Tab PO SCH (10:00)
--- NOTE | 2017-02-01 11:30 | CP.PCM.PN ---
<Feliberto Sprague - Last Filed: 02/01/17 11:51> Subjective - Date & Time of Evaluation Date of Evaluation: 02/01/17 Time of Evaluation: 11:27 - Subjective Subjective: Feliberto Sprague DO, PGY-1, Hospitalist Service Patient seen and examined at bedside. Patient reports improvement in breathing since admission. Patient is sitting OOB in chair. Denies chest pain, nausea, vomiting, or diaphoresis. Objective - Vital Signs/Intake and Output Vital Signs (last 24 hours): Temp Pulse Resp BP Pulse Ox 98.1 F 69 14 128/75 91 L 02/01/17 05:32 02/01/17 05:32 02/01/17 05:32 02/01/17 10:27 02/01/17 05:32 - Medications Medications: Current Medications Colchicine (Colocrys) 0.6 mg PO DAILY [facility] Last Admin: 02/01/17 10:27 Dose: 0.6 mg Digoxin (Lanoxin) 0.125 mg PO 1400 [facility] Furosemide (Lasix) 40 mg IVP BID [facility] Last Admin: 02/01/17 10:27 Dose: 40 mg Milrinone Lactate/Dextrose (Primacor 20mg/100ml D5w) 100 mls @ 5.39 mls/hr IV .[id number] PRN; Protocol; 0.233 MCG/KG/MIN PRN Reason: TITRATE PER MD ORDER Last Admin: 02/01/17 08:14 Dose: 0.233 mcg/kg/min, 5.39 mls/hr Isosorbide Mononitrate (Imdur) 60 mg PO 0600 [facility] Last Admin: 02/01/17 05:47 Dose: 60 mg Levothyroxine Sodium (Synthroid) 112 mcg PO 0600 [facility] Last Admin: 02/01/17 05:47 Dose: 112 mcg Losartan Potassium (Cozaar) 100 mg PO DAILY [facility] Last Admin: 02/01/17 10:27 Dose: 100 mg Pantoprazole Sodium (Protonix Ec Tab) 40 mg PO 0600 [facility] Last Admin: 02/01/17 05:47 Dose: 40 mg Potassium Chloride (K-Dur 20 Meq Er Tab) 20 meq PO DAILY [facility] Last Admin: 02/01/17 10:26 Dose: 20 meq Warfarin Sodium (Coumadin) 4 mg PO 1800 [facility] PRN Reason: Protocol Last Admin: 01/31/17 19:00 Dose: 4 mg - Labs Labs: PT 33.7 SECONDS (9.4-12.5) H 02/01/17 06:30 INR 3.00 (0.93-1.08) H 02/01/17 06:30 APTT 36.9 Seconds (25.1-36.5) H 01/31/17 15:08 - Constitutional Appears: Non-toxic, No Acute Distress - Head Exam Head Exam: ATRAUMATIC, NORMOCEPHALIC - Eye Exam Eye Exam: EOMI, Normal appearance, PERRL Pupil Exam: NORMAL ACCOMODATION - ENT Exam ENT Exam: Mucous Membranes Moist, Normal Oropharynx - Neck Exam Additional comments: JVD noted - Respiratory Exam Respiratory Exam: Rales (heard diffusely ) - Cardiovascular Exam Cardiovascular Exam: +S1, +S2 Additional comments: Paced - GI/Abdominal Exam GI & Abdominal Exam: Soft, Normal Bowel Sounds - Extremities Exam Extremities Exam: Normal Capillary Refill. absent: Calf Tenderness Additional comments: 3/4 pitting edema bilaterally - Back Exam Back Exam: NORMAL INSPECTION. absent: CVA tenderness (L), CVA tenderness (R) - Neurological Exam Neurological Exam: Alert, CN II-XII Intact, Oriented x3 - Psychiatric Exam Psychiatric exam: Normal Affect, Normal Mood - Skin Skin Exam: Dry, Intact, Normal Color, Warm Assessment and Plan - Assessment and Plan (Free Text) Assessment: 86 year old female with a past medical of CHF (EF of 8% with an AICD on IV Milrinone), atrial fibrillation, hypothyroidism, and gout who presents with acute on chronic CHF exacerbation. Plan: 1. CHF exacerbation Lasix 40 mg daily Continue Milrinone drip Continue home Digoxin, Imdur, Cozaar Strict I's and O's Daily weights Head of bed to 30 degrees HHD, low salt diet Cardiology consulted 2. A-fib Rate controlled Warfarin held given INR of 3.0, will repeat INR daily INR daily 3. Hypothyroidism Continue Synthroid 4. Gout Continue Colchicine 5. PPX Warfarin Protonix <Rangasamy,Ajantha - Last Filed: 02/01/17 12:42> Objective - Vital Signs/Intake and Output Vital Signs (last 24 hours): Temp Pulse Resp BP Pulse Ox 98.1 F 72 14 128/75 91 L 02/01/17 05:32 02/01/17 10:00 02/01/17 05:32 02/01/17 10:27 02/01/17 05:32 - Medications Medications: Current Medications Colchicine (Colocrys) 0.6 mg PO DAILY [facility] Last Admin: 02/01/17 10:27 Dose: 0.6 mg Digoxin (Lanoxin) 0.125 mg PO 1400 [facility] Furosemide (Lasix) 40 mg IVP BID [facility] Last Admin: 02/01/17 10:27 Dose: 40 mg Milrinone Lactate/Dextrose (Primacor 20mg/100ml D5w) 100 mls @ 5.39 mls/hr IV .[id number] PRN; Protocol; 0.233 MCG/KG/MIN PRN Reason: TITRATE PER MD ORDER Last Admin: 02/01/17 08:14 Dose: 0.233 mcg/kg/min, 5.39 mls/hr Isosorbide Mononitrate (Imdur) 60 mg PO 0600 [facility] Last Admin: 02/01/17 05:47 Dose: 60 mg Levothyroxine Sodium (Synthroid) 112 mcg PO 0600 [facility] Last Admin: 02/01/17 05:47 Dose: 112 mcg Losartan Potassium (Cozaar) 100 mg PO DAILY [facility] Last Admin: 02/01/17 10:27 Dose: 100 mg Pantoprazole Sodium (Protonix Ec Tab) 40 mg PO 0600 [facility] Last Admin: 02/01/17 05:47 Dose: 40 mg Spironolactone (Aldactone) 25 mg PO BID [facility] Warfarin Sodium (Coumadin) 4 mg PO 1800 [facility] PRN Reason: Protocol Last Admin: 01/31/17 19:00 Dose: 4 mg - Labs Labs: PT 33.7 SECONDS (9.4-12.5) H 02/01/17 06:30 INR 3.00 (0.93-1.08) H 02/01/17 06:30 APTT 36.9 Seconds (25.1-36.5) H 01/31/17 15:08 Attending/Attestation - Attestation I have personally seen and examined this patient.: Yes I have fully participated in the care of the patient.: Yes I have reviewed all pertinent clinical information, including history, physical exam and plan: Yes Notes (Text): 02/01/17 12:41 attending note; Patient seen and examined with resident. Patient is a 85-year-old female with a past medical history of cardiomyopathy, AICD, pulmonary hypertension, on home milrinone drip is admitted with Acute decompensated systolic heart failure on chronic CHF. started on IV Lasix. chronic swelling is improving. Urine output is increasing. The patient gained about 10 pounds over a few weeks. Patient is also noncompliance with low salt diet. Cardiology evaluation with Dr. Serna appreciated. Continue milrinone drip. Aldactone added. INR is 3.0 today.hold Coumadin. monitor INR closely. PT evaluation requested. Upon discharge patient will follow-up with PMD . The diagnosis and treatment discussed with patient in detail.
[2017-02-01] MEDS: Digoxin 125 mcg (0.125 mg) Tab PO SCH (15:00)
--- NOTE | 2017-02-01 21:01 | CON ---
DATE: 02/01/2017 REQUESTING PHYSICIAN: Marvin Guerrero MD REASON FOR CONSULTATION: Dyspnea and leg edema. HISTORY OF PRESENT ILLNESS: This is an 86-year-old woman well known to us with history of superior LV systolic dysfunction secondary to congestive cardiomyopathy as well as history of atrial fibrillation and prior ICD implant, maintained on milrinone therapy at home. Over the past several weeks, she has had worsening dyspnea, leg edema as well as weight gain. She presents to the emergency room and was admitted. She last admitted several months ago and was sent to subacute rehabilitation center; however, recently returned home. She complained compliance with her medications as well as dietary restrictions. PAST MEDICAL HISTORY: Notable for the problems mentioned above. She has a history of hypothyroidism, gout, prior cholecystectomy, back surgery, and hernia repair. MEDICATIONS: Her medications at home include intravenous milrinone, colchicine, Coumadin, losartan 100 mg daily, Imdur 60 mg daily, potassium supplement, digoxin 0.125 mg daily, Lasix 40 mg b.i.d., Synthroid, and metoprolol 25 mg b.i.d. SOCIAL HISTORY: She is a former smoker. She denies alcohol use. FAMILY HISTORY: Both parents are from age-related illness. REVIEW OF SYSTEMS: A 10-point review of systems is notable mainly for the problems as mentioned above. PHYSICAL EXAMINATION: GENERAL: She is a very elderly woman who is comfortable at rest. VITAL SIGNS: Her blood pressure is 128/76 with pulse of 70 with ventricular pacing, respirations are 14, and she is afebrile. NECK: JVD is present. Neck is supple. CHEST: Bibasilar rales. HEART: PMI displaced laterally with soft tones noted. Systolic murmur is present in the lower left sternal border as well as the apex. ABDOMEN: Soft and nontender with normoactive bowel sounds. Liver is palpable 4 cm below the left costal margin. EXTREMITIES: Revealed 2 to 3+ leg edema bilaterally. SKIN: Warm and dry. PSYCHIATRIC: Normal mood and affect. NEUROLOGIC: No gross motor or sensory deficits appreciated. DIAGNOSTIC DATA: Potassium 4.1 and BUN and creatinine 27 and 1.3. White count is 7.0, hemoglobin and hematocrit 10.1 and 32.0 with a platelet count of 174,000. INR was 3.0. BNP is 5540. Troponin is 0.07. Electrocardiogram reveals ventricular paced rhythm. Chest x-ray reveals moderately increased cardiac silhouette unchanged from prior films with some mild vascular congestion noted. IMPRESSION: 1. Decompensated congestive heart failure, [id number], predominantly systolic. 2. Congestive cardiomyopathy. 3. Severe left ventricular systolic dysfunction. 4. Underlying atrial fibrillation with conduction system disease. 5. History of ventricular tachycardia, status post implantable cardioverter defibrillator implant. RECOMMENDATIONS: IV Lasix will be continued for now. Oral spironolactone will be added. IV milrinone will be continued as well. The rest of medications will be continued and unchanged at this time. Sodium and fluid restrictions are advised given advanced age, obviously continue conservative management is most appropriate. We will be happy to follow throughout the hospital course as needed. Dino Thompson MD
[2017-02-02] MEDS: Milrinone 20mg/100ml D5W 100 ML IV PRN ×2 (01:20→18:19)
[2017-02-02] MEDS: Levothyroxine 112 MCG TAB PO SCH (06:32)
[2017-02-02] MEDS: Pantoprazole 40 mg EC Tab PO SCH (06:32)
--- NOTE | 2017-02-02 07:42 | CP.PCM.PN ---
<Feliberto Sprague - Last Filed: 02/02/17 08:00> Subjective - Date & Time of Evaluation Date of Evaluation: 02/02/17 Time of Evaluation: 07:38 - Subjective Subjective: Feliberto Sprague DO, PGY-1, Hospitalist Service Patient seen and examined at bedside. Patient denies any CP, SOB, N/V/D. Nurse reports no events overnight. Objective - Vital Signs/Intake and Output Vital Signs (last 24 hours): Temp Pulse Resp BP Pulse Ox 97.9 F 70 18 116/71 91 L 02/02/17 00:01 02/02/17 00:01 02/02/17 00:01 02/02/17 00:01 02/01/17 05:32 Intake and Output: 02/02/17 02/02/17 06:59 18:59 Intake Total 500 Balance 500 - Medications Medications: Current Medications Colchicine (Colocrys) 0.6 mg PO DAILY [facility] Last Admin: 02/01/17 10:27 Dose: 0.6 mg Digoxin (Lanoxin) 0.125 mg PO 1400 [facility] Last Admin: 02/01/17 15:00 Dose: 0.125 mg Furosemide (Lasix) 40 mg IVP BID [facility] Last Admin: 02/01/17 17:16 Dose: 40 mg Milrinone Lactate/Dextrose (Primacor 20mg/100ml D5w) 100 mls @ 5.39 mls/hr IV .[id number] PRN; Protocol; 0.233 MCG/KG/MIN PRN Reason: TITRATE PER MD ORDER Last Admin: 02/02/17 01:20 Dose: 0.233 mcg/kg/min, 5.39 mls/hr Isosorbide Mononitrate (Imdur) 60 mg PO 0600 [facility] Last Admin: 02/02/17 06:32 Dose: 60 mg Levothyroxine Sodium (Synthroid) 112 mcg PO 0600 [facility] Last Admin: 02/02/17 06:32 Dose: 112 mcg Losartan Potassium (Cozaar) 100 mg PO DAILY [facility] Last Admin: 02/01/17 10:27 Dose: 100 mg Pantoprazole Sodium (Protonix Ec Tab) 40 mg PO 0600 [facility] Last Admin: 02/02/17 06:32 Dose: 40 mg Spironolactone (Aldactone) 25 mg PO BID [facility] Last Admin: 02/01/17 17:16 Dose: 25 mg Warfarin Sodium (Coumadin) 4 mg PO 1800 [facility] PRN Reason: Protocol Last Admin: 01/31/17 19:00 Dose: 4 mg - Labs Labs: PT 33.7 SECONDS (9.4-12.5) H 02/01/17 06:30 INR 3.00 (0.93-1.08) H 02/01/17 06:30 APTT 36.9 Seconds (25.1-36.5) H 01/31/17 15:08 - Constitutional Appears: Non-toxic, No Acute Distress - Head Exam Head Exam: ATRAUMATIC, NORMOCEPHALIC - Eye Exam Eye Exam: EOMI, Normal appearance, PERRL - ENT Exam ENT Exam: Mucous Membranes Moist, Normal Oropharynx - Neck Exam Additional comments: JVD present, liver palpated 4 cm below the costal margin. - Respiratory Exam Respiratory Exam: Clear to Ausculation Bilateral, NORMAL BREATHING PATTERN - Cardiovascular Exam Cardiovascular Exam: RRR, +S1, +S2 - GI/Abdominal Exam GI & Abdominal Exam: Soft, Normal Bowel Sounds - Extremities Exam Extremities Exam: Normal Capillary Refill. absent: Calf Tenderness Additional comments: 2/4 LE edema, patient wearing tight fitting compression stockings. - Back Exam Back Exam: NORMAL INSPECTION. absent: CVA tenderness (L), CVA tenderness (R) - Neurological Exam Neurological Exam: Alert, Awake, CN II-XII Intact, Oriented x3 - Psychiatric Exam Psychiatric exam: Normal Affect, Normal Mood - Skin Skin Exam: Dry, Intact, Normal Color, Warm Assessment and Plan - Assessment and Plan (Free Text) Assessment: 86 year old female with a past medical of CHF (EF of 8% with an AICD on IV Milrinone), atrial fibrillation, hypothyroidism, and gout who presents with acute on chronic CHF exacerbation. Plan: 1. CHF exacerbation Lasix 40 mg daily Continue Milrinone drip Digoxin 0.125 Isosorbide mononitrate Cozaar 100 mg Spirinolactone 25 mg BID Strict I's and O's Daily weights Head of bed to 30 degrees HHD, low salt diet Cardiology consulted 2. A-fib Rate controlled Warfarin held given INR of 3.0 on 02/01, will repeat INR daily 3. Hypothyroidism Continue Synthroid 4. Gout Continue Colchicine 5. PPX Warfarin (held) Protonix 40 mg <RangasaCornelius [email or web address] - Last Filed: 02/02/17 14:29> Objective - Vital Signs/Intake and Output Vital Signs (last 24 hours): Temp Pulse Resp BP Pulse Ox 97.6 F 70 18 128/59 L 96 02/02/17 12:00 02/02/17 12:00 02/02/17 12:00 02/02/17 12:00 02/02/17 06:00 Intake and Output: 02/02/17 02/02/17 06:59 18:59 Intake Total 500 Balance 500 - Medications Medications: Current Medications Colchicine (Colocrys) 0.6 mg PO DAILY [facility] Last Admin: 02/02/17 09:43 Dose: 0.6 mg Digoxin (Lanoxin) 0.125 mg PO 1400 [facility] Last Admin: 02/02/17 14:19 Dose: 0.125 mg Furosemide (Lasix) 40 mg IVP BID [facility] Last Admin: 02/02/17 09:44 Dose: 40 mg Milrinone Lactate/Dextrose (Primacor 20mg/100ml D5w) 100 mls @ 5.39 mls/hr IV .[id number] PRN; Protocol; 0.233 MCG/KG/MIN PRN Reason: TITRATE PER MD ORDER Last Admin: 02/02/17 01:20 Dose: 0.233 mcg/kg/min, 5.39 mls/hr Isosorbide Mononitrate (Imdur) 60 mg PO 0600 [facility] Last Admin: 02/02/17 06:32 Dose: 60 mg Levothyroxine Sodium (Synthroid) 112 mcg PO 0600 [facility] Last Admin: 02/02/17 06:32 Dose: 112 mcg Losartan Potassium (Cozaar) 100 mg PO DAILY [facility] Last Admin: 02/02/17 09:43 Dose: 100 mg Ondansetron HCl (Zofran Inj) 4 mg IVP Q4H PRN PRN Reason: Nausea/Vomiting Pantoprazole Sodium (Protonix Ec Tab) 40 mg PO 0600 [facility] Last Admin: 02/02/17 06:32 Dose: 40 mg Spironolactone (Aldactone) 25 mg PO BID [facility] Last Admin: 02/02/17 09:43 Dose: 25 mg Warfarin Sodium (Coumadin) 4 mg PO 1800 [facility] PRN Reason: Protocol Last Admin: 01/31/17 19:00 Dose: 4 mg - Labs Labs: 02/02/17 09:30 PT 32.2 SECONDS (9.4-12.5) H 02/02/17 09:30 INR 2.87 (0.93-1.08) H 02/02/17 09:30 APTT 36.9 Seconds (25.1-36.5) H 01/31/17 15:08 Attending/Attestation - Attestation I have personally seen and examined this patient.: Yes I have fully participated in the care of the patient.: Yes I have reviewed all pertinent clinical information, including history, physical exam and plan: Yes Notes (Text): 02/02/17 14:27 attending note; Patient seen and examined with resident. Patient is a 85-year-old female with a past medical history of cardiomyopathy, AICD, pulmonary hypertension, on home milrinone drip is admitted with Acute decompensated systolic heart failure on chronic CHF. started on IV Lasix. leg swelling is improving. Urine output is increasing. Cardiology evaluation with Dr. Serna appreciated. Continue milrinone drip. Aldactone added. INR is 2.8 today.hold Coumadin. monitor INR closely. PT evaluation appreciated. TCU evaluation requested. Upon discharge patient will follow-up with PMD .
[2017-02-02 08:06] VITALS: O2SAT 96
--- NOTE | 2017-02-02 10:08 | IP.NPCORE ---
Heart Failure Core Measure - Heart Failure Ejection Fraction: Less Than 40 % Left Ventricular Function to be assessed after discharge: Yes VIDA Inhibitor Prescribed: No Contraindication/Reason for not providing: shorty Angiotensin II Receptor Marisa Prescribed: Yes AnticoagulationTherapy for Atrial Fibrillation/Atrialflutter: Yes Aldosterone Antagonist Prescribed: Yes Hydralazine Nitrate Prescribed: Yes Implantable Cardioverter Defibrillator Therapy: Yes Cardiac Resynchronization Therapy Prescribed: Yes - Follow up Will be discharged to: Home Follow Up Date (must be within 7 days from discharge): 02/09/17 Follow Up Time: 09:00
[2017-02-02 10:13] LABS: INR 2.87 (0.93-1.08)
[2017-02-02 10:18] VITALS: BMI 28.6
[2017-02-02 10:22] LABS: ALB/GLOB RATIO 1.1 (1.1-1.8); BILIRUBIN,TOTAL 1.9 mg/dL (0.2-1.3); CALCIUM 9.2 mg/dL (8.4-10.5); POTASSIUM 4.7 mmol/L (3.6-5.0); TOTAL PROTEIN 6.4 g/dL (5.8-8.3)
--- NOTE | 2017-02-02 12:51 | CP.PCM.DIS ---
<Feliberto Sprague - Last Filed: 02/02/17 13:13> Provider - Provider Date of Admission: 02/01/17 09:14 Attending physician: Marvin Guerrero MD Primary care physician: Boaz Green MD Consults: Dr. Alcantraa Time Spent in preparation of Discharge (in minutes): 35 Hospital Course - Lab Results Lab Results: Most Recent Lab Values WBC 7.0 10^3/ul (4.5-11.0) 02/01/17 06:30 RBC 3.32 10^6/uL (3.5-6.1) L 02/01/17 06:30 Hgb 10.1 g/dL (12.0-16.0) L 02/01/17 06:30 Hct 32.0 % (36.0-48.0) L 02/01/17 06:30 MCV 96.4 fl (80.0-105.0) 02/01/17 06:30 MCH 30.4 pg (25.0-35.0) 02/01/17 06:30 MCHC 31.6 g/dl (31.0-37.0) 02/01/17 06:30 RDW 16.1 % (11.5-14.5) H 02/01/17 06:30 Plt Count 174 10^3/uL (120.0-450.0) 02/01/17 06:30 MPV 10.8 fl (7.0-11.0) 02/01/17 06:30 Gran % 55.0 % (50.0-68.0) 02/01/17 06:30 Lymph % (Auto) 34.3 % (22.0-35.0) 02/01/17 06:30 Roane % (Auto) 8.0 % (1.0-6.0) H 02/01/17 06:30 Eos % (Auto) 1.6 % (1.5-5.0) 02/01/17 06:30 Baso % (Auto) 1.1 % (0.0-3.0) 02/01/17 06:30 Gran # 3.85 (1.4-6.5) 02/01/17 06:30 Lymph # 2.4 (1.2-3.4) 02/01/17 06:30 Roane # 0.6 (0.1-0.6) 02/01/17 06:30 Eos # 0.1 (0.0-0.7) 02/01/17 06:30 Baso # 0.08 K/mm3 (0.0-2.0) 02/01/17 06:30 PT 32.2 SECONDS (9.4-12.5) H 02/02/17 09:30 INR 2.87 (0.93-1.08) H 02/02/17 09:30 APTT 36.9 Seconds (25.1-36.5) H 01/31/17 15:08 Sodium 135 mmol/L (132-148) 02/02/17 09:30 Potassium 4.7 mmol/L (3.6-5.0) 02/02/17 09:30 Chloride 101 mmol/L (98-107) 02/02/17 09:30 Carbon Dioxide 25 mmol/L (21-33) 02/02/17 09:30 Anion Gap 14 (10-20) 02/02/17 09:30 BUN 28 mg/dL (7-21) H 02/02/17 09:30 Creatinine 1.3 mg/dl (0.7-1.2) H 02/02/17 09:30 Est GFR ( Amer) 47 02/02/17 09:30 Est GFR (Non-Af Amer) 39 02/02/17 09:30 Random Glucose 138 mg/dL (70-110) H 02/02/17 09:30 Calcium 9.2 mg/dL (8.4-10.5) 02/02/17 09:30 Total Bilirubin 1.9 mg/dL (0.2-1.3) H 02/02/17 09:30 AST 28 U/L (14-36) 02/02/17 09:30 ALT 25 U/L (7-56) 02/02/17 09:30 Alkaline Phosphatase 89 U/L (38-126) 02/02/17 09:30 Lactate Dehydrogenase 640 U/L (333-699) 01/31/17 15:09 Total Creatine Kinase 49 U/L (35-230) 01/31/17 15:09 Troponin I 0.07 ng/mL 01/31/17 15:09 NT-Pro-B Natriuret Pep 5540 pg/mL (0-450) H 01/31/17 15:09 Total Protein 6.4 g/dL (5.8-8.3) 02/02/17 09:30 Albumin 3.4 g/dL (3.0-4.8) 02/02/17 09:30 Globulin 3.1 gm/dL 02/02/17 09:30 Albumin/Globulin Ratio 1.1 (1.1-1.8) 02/02/17 09:30 Digoxin 1.0 ng/mL (0.8-2.0) 01/31/17 18:40 - Hospital Course Hospital Course: 86 year old female with a past medical history of CHF (EF of 8%) maintained on a Milrinone drip with an AICD and biventricular pacemaker, congestive cardiomyopathy, atrial fibrillation, hypothyrodism, and gout who presented with gradually worsening dyspnea and lower extremity edema. She was found to have an acute on chronic CHF exacerbation and an DAPHNE. She was medically stabilized on telemetry by resuming her home medications, oxygen, and IV diuretics. Physical therapy saw the patient and recommended CESARIO. Subsequently, the patient was discharged with instructions to restrict her sodium intake, monitor her weight daily using the same scale, and to follow up with her PMD. - Date & Time of H&P Date of H&P: 02/02/17 Time of H&P: 13:06 Discharge Exam - Head Exam Head Exam: ATRAUMATIC, NORMOCEPHALIC - Eye Exam Eye Exam: EOMI, Normal appearance - ENT Exam ENT Exam: Mucous Membranes Moist, Normal Oropharynx - Neck Exam Neck exam: Normal Inspection Additional comments: JVD present - Respiratory Exam Respiratory Exam: Decreased Breath Sounds, NORMAL BREATHING PATTERN. absent: Respiratory Distress - Cardiovascular Exam Cardiovascular Exam: RRR, +S1, +S2 - GI/Abdominal Exam GI & Abdominal Exam: Normal Bowel Sounds Additional comments: liver palpated 4 cm below the costal margin - Extremities Exam Additional comments: 2/4 pitting edema (patient is wearing compression stockings) - Back Exam Back exam: NORMAL INSPECTION. absent: CVA tenderness (L), CVA tenderness (R) - Neurological Exam Neurological exam: Alert, CN II-XII Intact, Oriented x3 - Psychiatric Exam Psychiatric exam: Normal Affect, Normal Mood - Skin Skin Exam: Dry, Intact, Normal Color, Warm Discharge Plan - Follow Up Plan Condition: FAIR Disposition: REHAB FACILITY/REHAB UNIT Instructions: Heart Failure (DC), Heart Failure (GEN), Pacemaker (DC), Pacemaker (GEN), Pulmonary Edema (DC), Pulmonary Edema (GEN), Ascites (DC), Ascites (GEN) Additional Instructions: 1) Patient to take any medications as prescribed. 2) Patient to follow up with PMD within 7 days of discharge. 3) Patient to monitor weight daily using the same scale. 4) Patient to restrict Na intake. 5) Patient to return to the ED for any worsening of symptoms. Referrals: Boaz Green MD [Primary Care Provider] - <Marvin Guerrero - Last Filed: 02/02/17 16:30> Provider - Provider Date of Admission: 02/01/17 09:14 Attending physician: Marvin Guerrero MD Primary care physician: Boaz Green MD Hospital Course - Lab Results Lab Results: Most Recent Lab Values WBC 7.0 10^3/ul (4.5-11.0) 02/01/17 06:30 RBC 3.32 10^6/uL (3.5-6.1) L 02/01/17 06:30 Hgb 10.1 g/dL (12.0-16.0) L 02/01/17 06:30 Hct 32.0 % (36.0-48.0) L 02/01/17 06:30 MCV 96.4 fl (80.0-105.0) 02/01/17 06:30 MCH 30.4 pg (25.0-35.0) 02/01/17 06:30 MCHC 31.6 g/dl (31.0-37.0) 02/01/17 06:30 RDW 16.1 % (11.5-14.5) H 02/01/17 06:30 Plt Count 174 10^3/uL (120.0-450.0) 02/01/17 06:30 MPV 10.8 fl (7.0-11.0) 02/01/17 06:30 Gran % 55.0 % (50.0-68.0) 02/01/17 06:30 Lymph % (Auto) 34.3 % (22.0-35.0) 02/01/17 06:30 Roane % (Auto) 8.0 % (1.0-6.0) H 02/01/17 06:30 Eos % (Auto) 1.6 % (1.5-5.0) 02/01/17 06:30 Baso % (Auto) 1.1 % (0.0-3.0) 02/01/17 06:30 Gran # 3.85 (1.4-6.5) 02/01/17 06:30 Lymph # 2.4 (1.2-3.4) 02/01/17 06:30 Roane # 0.6 (0.1-0.6) 02/01/17 06:30 Eos # 0.1 (0.0-0.7) 02/01/17 06:30 Baso # 0.08 K/mm3 (0.0-2.0) 02/01/17 06:30 PT 32.2 SECONDS (9.4-12.5) H 02/02/17 09:30 INR 2.87 (0.93-1.08) H 02/02/17 09:30 APTT 36.9 Seconds (25.1-36.5) H 01/31/17 15:08 Sodium 135 mmol/L (132-148) 02/02/17 09:30 Potassium 4.7 mmol/L (3.6-5.0) 02/02/17 09:30 Chloride 101 mmol/L (98-107) 02/02/17 09:30 Carbon Dioxide 25 mmol/L (21-33) 02/02/17 09:30 Anion Gap 14 (10-20) 02/02/17 09:30 BUN 28 mg/dL (7-21) H 02/02/17 09:30 Creatinine 1.3 mg/dl (0.7-1.2) H 02/02/17 09:30 Est GFR ( Amer) 47 02/02/17 09:30 Est GFR (Non-Af Amer) 39 02/02/17 09:30 Random Glucose 138 mg/dL (70-110) H 02/02/17 09:30 Calcium 9.2 mg/dL (8.4-10.5) 02/02/17 09:30 Total Bilirubin 1.9 mg/dL (0.2-1.3) H 02/02/17 09:30 AST 28 U/L (14-36) 02/02/17 09:30 ALT 25 U/L (7-56) 02/02/17 09:30 Alkaline Phosphatase 89 U/L (38-126) 02/02/17 09:30 Lactate Dehydrogenase 640 U/L (333-699) 01/31/17 15:09 Total Creatine Kinase 49 U/L (35-230) 01/31/17 15:09 Troponin I 0.07 ng/mL 01/31/17 15:09 NT-Pro-B Natriuret Pep 5540 pg/mL (0-450) H 01/31/17 15:09 Total Protein 6.4 g/dL (5.8-8.3) 02/02/17 09:30 Albumin 3.4 g/dL (3.0-4.8) 02/02/17 09:30 Globulin 3.1 gm/dL 02/02/17 09:30 Albumin/Globulin Ratio 1.1 (1.1-1.8) 02/02/17 09:30 Digoxin 1.0 ng/mL (0.8-2.0) 01/31/17 18:40 Attending/Attestation - Attestation I have personally seen and examined this patient.: Yes I have fully participated in the care of the patient.: Yes I have reviewed all pertinent clinical information, including history, physical exam and plan: Yes Notes (Text): 02/02/17 16:29 attending note; Patient seen and examined with resident. Patient is a 85-year-old female with a past medical history of cardiomyopathy, AICD/ppm, pulmonary hypertension, on home milrinone drip is admitted with Acute decompensated systolic heart failure on chronic CHF. on IV Lasix. leg swelling is improving. Urine output is increasing. Cardiology evaluation with Dr. Serna appreciated. Continue milrinone drip. Aldactone added. INR is 2.8 today.hold Coumadin. monitor INR closely. PT evaluation appreciated. transfer to TCU today. Upon discharge patient will follow-up with PMD .
[2017-02-02 14:19] VITALS: PULSE 72
[2017-02-02] MEDS: Digoxin 125 mcg (0.125 mg) Tab PO SCH (14:19)
[2017-02-02 17:31] VITALS: BP 136/76
[2017-02-02 17:37] VITALS: RESP 20; TEMP 97.4
--- NOTE | 2017-02-02 18:02 | PN ---
DATE: 02/02/2017 SUBJECTIVE: The patient is seen sitting in bed on telemetry. She is feeling somewhat better. Dyspnea is improved. Seen in the presence of her family. CURRENT MEDICATIONS: Include Aldactone 25 mg b.i.d., colchicine, Coumadin, losartan 100 mg daily, Imdur 60 mg daily, digoxin 0.125 mg daily, Lasix 40 mg b.i.d., milrinone infusion, Protonix, and Synthroid 112 mcg daily. OBJECTIVE: GENERAL: She is a very elderly woman, appears comfortable at rest. VITAL SIGNS: Blood pressure is 130/50 with a pulse of 70 in ventricular paced, respiration 16. She is afebrile. HEENT: No JVD. CHEST: Bibasilar rales. HEART: PMI displaced laterally with soft tones present. ABDOMEN: Soft, nontender with bowel sounds. EXTREMITIES: 2+ leg edema. Compression stockings are in place. DIAGNOSTIC DATA: Potassium 4.7, BUN and creatinine 28 and 1.3. INR is 2.87, potassium 4.7. Intake and output not accurately recorded. IMPRESSION: 1. Decompensated congestive heart failure, acute on chronic; clinically improving. 2. Severe left ventricular systolic dysfunction. 3. History of ventricle tachycardia status post implantable cardioverter-defibrillator implant. RECOMMENDATIONS: Her current medications should continue. The plan is being made for possible TCU evaluation. Continue sodium and fluid restriction are advised. Her overall prognosis remains poor. DNR/DNI orders in place. We will follow as needed. Dino Thompson MD
[2017-02-02 18:24] VITALS: PULSE 72
== END 2017-02-02 18:50 | DRG 292 ==
LOC: ED 13:49 → ERH 16:26 → 2RSO 18:11 → OBSVTOIN 02-01 09:14
PROVIDERS: ADMIT Internal Medicine; ATTEND Internal Medicine
DX: I50.23 Acute on chronic systolic (congestive) heart failure (principal); I42.8 Other cardiomyopathies; N17.9 Acute kidney failure, unspecified; I27.20 Pulmonary hypertension, unspecified; J44.9 Chronic obstructive pulmonary disease, unspecified; I48.91 Unspecified atrial fibrillation; E03.9 Hypothyroidism, unspecified; I45.9 Conduction disorder, unspecified; M10.9 Gout, unspecified; Z86.73 Personal history of transient ischemic attack (TIA), and cerebral infarction without residual deficits; Z86.79 Personal history of other diseases of the circulatory system; Z95.0 Presence of cardiac pacemaker; Z95.810 Presence of automatic (implantable) cardiac defibrillator; Z91.11 Patient's noncompliance with dietary regimen; Z90.49 Acquired absence of other specified parts of digestive tract; Z87.891 Personal history of nicotine dependence; H26.9 Unspecified cataract; Z88.5 Allergy status to narcotic agent; Z88.0 Allergy status to penicillin; R40.2412 Glasgow coma scale score 13-15, at arrival to emergency department

== ENCOUNTER 2017-02-02 18:54 | Inpatient (IN) | payer MEDICARE, OTHER ==
[2017-02-02 20:04] VITALS: BMI 29.8
[2017-02-02] MEDS ORDERED: Influenza Vaccine 60 mcg/0.5 mL SYR (4YR UP) IM ONE (21:08)
[2017-02-02] MEDS ORDERED: Pneumococcal 23-Valent Vaccine IM ONE (21:08)
[2017-02-03] MEDS: Levothyroxine 112 MCG TAB PO SCH (05:12)
[2017-02-03] MEDS: Pantoprazole 40 mg EC Tab PO SCH (05:14)
--- NOTE | 2017-02-03 07:52 | CP.PCM.HP ---
<Feliberto Sprague - Last Filed: 02/03/17 13:04> History of Present Illness - History of Present Illness History of Present Illness: 86 year old female with a past medical history of CHF (EF of 8%)- maintained on a Milrinone drip for the past 2.5 years with an AICD and pacemaker- atrial fibrillation, hypothyroidism, and gout who presented with gradually worsening dyspnea and lower extremity edema. She was found to have an acute decompensated systolic heart failure on chronic CHF exacerbation and an DAPHNE. She was medically stabilized on telemetry by resuming her home medications, providing oxygen therapy, and IV diuretics. Physical therapy saw the patient and recommended Subacute Rehabilation. Subsequently, the patient was discharged with instructions to restrict her sodium intake, monitor her weight daily, and to follow up with her PMD when she is discharged from the Transitional Care Unit. She was admitted to the TCU for deconditioning and gait instability. Cardiology will continue to monitor the patient and she will be monitored closely for her chronic medical problems. Present on Admission - Present on Admission Any Indicators Present on Admission: No Review of Systems - Constitutional Constitutional: absent: Anorexia, Daytime Sleepiness, Excessive Sweating - EENT Eyes: absent: Blurred Vision, Dry Eye Ears: absent: Decreased Hearing, Ear Discharge, Ear Pain Nose/Mouth/Throat: absent: Nasal Congestion, Nasal Discharge, Nose Pain - Cardiovascular Cardiovascular: Edema, Leg Edema. absent: Chest Pain, Palpitations - Respiratory Respiratory: absent: Cough, Dyspnea, Excessive Mucous Production - Gastrointestinal Gastrointestinal: absent: Abdominal Pain, Bloating, Dysphagia - Genitourinary Genitourinary: absent: Change in Urinary Stream, Urinary Frequency - Musculoskeletal Musculoskeletal: absent: Back Pain, Muscle Cramps - Neurological Neurological: absent: Abnormal Hearing, Burning Sensations, Confusion, Focal Weakness - Psychiatric Psychiatric: absent: Behavioral Changes, Homicidal Ideation, Hopelessness, Panic Attacks - Endocrine Endocrine: absent: Excessive Sweating, Heat Intolorance, Increase in Ring/Shoe/ Hat Size Past Patient History - Infectious Disease Hx of Infectious Diseases: None - Tetanus Immunizations Tetanus Immunization: Unknown - Past Medical History & Family History Past Medical History?: Yes - Past Social History Smoking Status: Former Smoker - CARDIAC Hx Cardiac Disorders: Yes Hx Circulatory Problems: Yes Hx Congestive Heart Failure: Yes - PULMONARY Hx Respiratory Disorders: Yes (USED TO SMOKE CIGARETTES QUIT 25 YRS AGO.) Hx Chronic Obstructive Pulmonary Disease (COPD): Yes Hx Pneumonia: Yes - NEUROLOGICAL Hx Neurological Disorder: Yes HX Cerebrovascular Accident: Yes - HEENT Hx HEENT Problems: Yes (eyeglasses) Hx Blind: No Hx Cataracts: Yes (r eye 01/24/13) - RENAL Hx Chronic Kidney Disease: No - ENDOCRINE/METABOLIC Hx Endocrine Disorders: Yes Hx Hypothyroidism: Yes - HEMATOLOGICAL/ONCOLOGICAL Hx Blood Disorders: No - INTEGUMENTARY Hx Dermatological Problems: Yes (b/l pedal edema) - MUSCULOSKELETAL/RHEUMATOLOGICAL Hx Falls: Yes - GASTROINTESTINAL Hx Gastrointestinal Disorders: Yes (CHOLECYSTECTOMY,HERNIORHAPPHY) - GENITOURINARY/GYNECOLOGICAL Hx Genitourinary Disorders: No Hx Reproductive Disorders: No - PSYCHIATRIC Hx Emotional Abuse: No Hx Physical Abuse: No Hx Substance Use: No - SURGICAL HISTORY Hx Surgeries: Yes (CATARAC SX) Hx Cholecystectomy: Yes Other/Comment: hammer toe surgery, laminectomy in 1990, had an abdominal hernia repair. pacemaker/defib in L chest wall. R chest wall port placement - ANESTHESIA Hx Anesthesia: Yes Hx Anesthesia Reactions: No Hx Malignant Hyperthermia: No Meds Allergies/Adverse Reactions: Allergies Allergy/AdvReac Type Severity Reaction Status Date / Time codeine Allergy SHORTNESS Verified 02/02/17 19:56 OF BREATH Penicillins Allergy RASH Verified 02/02/17 19:56 Physical Exam - Constitutional Appears: Non-toxic, No Acute Distress - Head Exam Head Exam: ATRAUMATIC, NORMOCEPHALIC - Eye Exam Eye Exam: EOMI, Normal appearance, PERRL - ENT Exam ENT Exam: Mucous Membranes Moist, Normal Oropharynx - Neck Exam Neck exam: Positive for: Normal Inspection Additional comments: JVD - Respiratory Exam Respiratory Exam: Rales (left greater than right), NORMAL BREATHING PATTERN - Cardiovascular Exam Cardiovascular Exam: RRR, +S1, +S2 - GI/Abdominal Exam GI & Abdominal Exam: Normal Bowel Sounds, Soft - Extremities Exam Additional comments: 1/4 pitting edema - Back Exam Back exam: NORMAL INSPECTION. absent: CVA tenderness (L), CVA tenderness (R) - Neurological Exam Neurological exam: Alert, CN II-XII Intact, Oriented x3 - Psychiatric Exam Psychiatric exam: Normal Affect, Normal Mood - Skin Skin Exam: Dry, Intact, Normal Color, Warm Results - Vital Signs Recent Vital Signs: Last Vital Signs Temp 97.5 F L 02/03/17 06:00 Pulse 70 02/03/17 06:00 Resp 20 02/03/17 06:00 BP 138/62 02/03/17 06:00 Pulse Ox 92 L 02/03/17 06:00 - Labs Result Diagrams: 02/03/17 08:00 02/03/17 08:00 Assessment & Plan - Assessment and Plan (Free Text) Assessment: 86 year old female with a past medical of CHF (EF of 8% with an AICD on IV Milrinone for the past 2.5 years), atrial fibrillation, hypothyroidism, and gout who presents with acute on chronic CHF that improved significantly with medical therapy, including, but not limited to diuresis, oxygen therapy, and the the recommendations from exercise instruct. Plan: 1. CHF exacerbation Lasix 40 mg daily Continue Milrinone drip Digoxin 0.125 Isosorbide mononitrate Cozaar 100 mg Spirinolactone 25 mg BID Strict I's and O's Daily weights Head of bed to 30 degrees HHD, low salt diet Cardiology consulted 2. Atrial fibrillation Rate controlled with Carvedilol Warfarin held given INR of 3.0 on 02/01, will repeat INR daily 3. Hypothyroidism Continue Synthroid 4. Gout Continue Colchicine 5. PPX Warfarin (held) Protonix 40 mg 6) Physical therapy for deconditioning and gait instabillity - Date & Time Date: 02/03/17 Time: 13:08 <Marvin Guerrero - Last Filed: 02/03/17 16:08> Results - Vital Signs Recent Vital Signs: Last Vital Signs Temp 97.5 F L 02/03/17 14:00 Pulse 70 02/03/17 14:00 Resp 18 02/03/17 14:00 BP 129/64 02/03/17 14:00 Pulse Ox 98 02/03/17 14:00 - Labs Result Diagrams: 02/03/17 08:00 02/03/17 08:00 Labs: Laboratory Results - last 24 hr 02/03/17 02/03/17 02/03/17 08:00 08:00 08:00 WBC 7.2 RBC 3.46 L Hgb 10.7 L Hct 33.4 L MCV 96.5 MCH 30.9 MCHC 32.0 RDW 15.9 H Plt Count 189 MPV 10.5 Gran % 60.5 Lymph % (Auto) 25.3 Williams % (Auto) 10.8 H Eos % (Auto) 2.6 Baso % (Auto) 0.8 Gran # 4.34 Lymph # 1.8 Williams # 0.8 H Eos # 0.2 Baso # 0.06 PT 29.7 H INR 2.65 H Sodium 137 Potassium 4.5 Chloride 99 Carbon Dioxide 29 Anion Gap 14 BUN 28 H Creatinine 1.4 H Est GFR ( Amer) 43 Est GFR (Non-Af Amer) 36 Random Glucose 102 Calcium 9.6 Total Bilirubin 2.4 H AST 29 ALT 32 Alkaline Phosphatase 116 Total Protein 7.5 Albumin 3.7 Globulin 3.8 Albumin/Globulin Ratio 1.0 L Attending/Attestation - Attestation I have personally seen and examined this patient.: Yes I have fully participated in the care of the patient.: Yes I have reviewed all pertinent clinical information: Yes Notes (Text): 02/03/17 16:06 attending note; Patient seen and examined with resident in TCU. Patient is a 85-year-old female with a past medical history of cardiomyopathy, AICD/ppm, pulmonary hypertension, on home milrinone drip is admitted with Acute decompensated systolic heart failure on chronic CHF. on IV Lasix. leg swelling is improving. Urine output is increasing. weight is 175 lbs today. Cardiology evaluation appreciated. Continue milrinone drip. Aldactone added. INR is 2.6 today. monitor INR closely. Continue physical therapy and gait training. Upon discharge patient will follow-up with PMD .
[2017-02-03 08:13] LABS: BASO # 0.06 K/mm3 (0.0-2.0); BASO % 0.8 % (0.0-3.0); EOS # 0.2 (0.0-0.7); EOS % 2.6 % (1.5-5.0); GRAN # 4.34 (1.4-6.5); GRAN % 60.5 % (50.0-68.0); HEMATOCRIT 33.4 % (36.0-48.0); LYMPH # 1.8 (1.2-3.4); LYMPH % 25.3 % (22.0-35.0); MEAN CELL VOLUME 96.5 fl (80.0-105.0); MEAN CORPUSCULAR HEMOGLOBIN 30.9 pg (25.0-35.0); MEAN PLATELET VOLUME 10.5 fl (7.0-11.0); MONO # 0.8 (0.1-0.6); MONO % 10.8 % (1.0-6.0); RED CELL DISTRIBUTION WIDTH 15.9 % (11.5-14.5); WHITE BLOOD COUNT 7.2 10^3/ul (4.5-11.0)
--- NOTE | 2017-02-03 08:16 | CP.PCM.PN ---
Subjective - Date & Time of Evaluation Date of Evaluation: 02/03/17 Time of Evaluation: 07:00 - Subjective Subjective: Stable on TCU now. She feels better. No CP or SOB V/S noted PE: Lungs: few rhonchi Cor: S1s2, sys. murmur Abd.: soft Ext: no edema Neuro: alert 02/01 and 02/02 labs noted. Objective - Vital Signs/Intake and Output Vital Signs (last 24 hours): Temp Pulse Resp BP Pulse Ox 97.5 F L 70 20 138/62 92 L 02/03/17 06:00 02/03/17 06:00 02/03/17 06:00 02/03/17 06:00 02/03/17 06:00 - Medications Medications: Current Medications Colchicine (Colocrys) 0.6 mg PO DAILY YAA PRN Reason: Protocol Digoxin (Lanoxin) 0.125 mg PO 1400 YAA PRN Reason: Protocol Furosemide (Lasix) 40 mg IVP BID YAA PRN Reason: Protocol Milrinone Lactate/Dextrose (Primacor 20mg/100ml D5w) 100 mls @ 5.866 mls/hr IV .Q17H3M PRN; Protocol; 0.233 MCG/KG/MIN PRN Reason: TITRATE PER MD ORDER Isosorbide Mononitrate (Imdur) 60 mg PO 0600 YAA PRN Reason: Protocol Last Admin: 02/03/17 05:14 Dose: 60 mg Levothyroxine Sodium (Synthroid) 112 mcg PO 0600 YAA PRN Reason: Protocol Last Admin: 02/03/17 05:12 Dose: 112 mcg Losartan Potassium (Cozaar) 100 mg PO DAILY YAA PRN Reason: Protocol Ondansetron HCl (Zofran Inj) 4 mg IVP Q4H PRN; Protocol PRN Reason: Nausea/Vomiting Pantoprazole Sodium (Protonix Ec Tab) 40 mg PO 0600 YAA PRN Reason: Protocol Last Admin: 02/03/17 05:14 Dose: 40 mg Spironolactone (Aldactone) 25 mg PO BID YAA PRN Reason: Protocol Warfarin Sodium (Coumadin) 4 mg PO 1800 YAA PRN Reason: Protocol Assessment and Plan - Assessment and Plan (Free Text) Assessment: Dyspnea/Edema CHF-IV CCM on home milrinone infusion Severe MR,TR and PH on echo PAF ICD Stroke Gout Hypothyroidism GB, Back and Hernia Surgery Plan: TCU/PT/Rehab Efforts Continue milrinone, IV Lasix, PO spironolactone Monitor Labs OOB as mireille Will Follow.
[2017-02-03 08:20] LABS: INR 2.65 (0.93-1.08)
[2017-02-03 09:21] LABS: BILIRUBIN,TOTAL 2.4 mg/dL (0.2-1.3); CALCIUM 9.6 mg/dL (8.4-10.5); POTASSIUM 4.5 mmol/L (3.6-5.0); TOTAL PROTEIN 7.5 g/dL (5.8-8.3)
[2017-02-03] MEDS: Milrinone 20mg/100ml D5W 100 ML IV PRN (11:10)
[2017-02-03] MEDS: Digoxin 125 mcg (0.125 mg) Tab PO SCH (13:08)
[2017-02-04] MEDS: Pantoprazole 40 mg EC Tab PO SCH (05:08)
[2017-02-04] MEDS: Levothyroxine 112 MCG TAB PO SCH (05:08)
[2017-02-04] MEDS: Milrinone 20mg/100ml D5W 100 ML IV PRN (06:03)
--- NOTE | 2017-02-04 08:15 | CP.PCM.PN ---
Subjective - Date & Time of Evaluation Date of Evaluation: 02/04/17 Time of Evaluation: 07:00 - Subjective Subjective: Stable on TCU now. She feels better. No CP or SOB. No edema now. + ambulation yesterday. V/S noted PE: Lungs: few rhonchi Cor: S1s2, sys. murmur Abd.: soft Ext: no edema Neuro: alert 02/03 labs noted. INR 2.65. Today's labs pending. Objective - Vital Signs/Intake and Output Vital Signs (last 24 hours): Temp Pulse Resp BP Pulse Ox 97.7 F 69 20 119/56 L 93 L 02/04/17 05:51 02/04/17 06:03 02/04/17 05:51 02/04/17 06:03 02/04/17 05:51 Intake and Output: 02/04/17 02/04/17 06:59 18:59 Intake Total 420 Balance 420 - Medications Medications: Current Medications Colchicine (Colocrys) 0.6 mg PO DAILY YAA PRN Reason: Protocol Digoxin (Lanoxin) 0.125 mg PO 1400 YAA PRN Reason: Protocol Last Admin: 02/03/17 13:08 Dose: 0.125 mg Furosemide (Lasix) 40 mg IVP DAILY YAA PRN Reason: Protocol Milrinone Lactate/Dextrose (Primacor 20mg/100ml D5w) 100 mls @ 5.866 mls/hr IV .Q17H3M PRN; Protocol; 0.233 MCG/KG/MIN PRN Reason: TITRATE PER MD ORDER Last Admin: 02/04/17 06:03 Dose: 0.233 mcg/kg/min, 5.866 mls/hr Isosorbide Mononitrate (Imdur) 60 mg PO 0600 YAA PRN Reason: Protocol Last Admin: 02/04/17 05:08 Dose: 60 mg Levothyroxine Sodium (Synthroid) 112 mcg PO 0600 YAA PRN Reason: Protocol Last Admin: 02/04/17 05:08 Dose: 112 mcg Losartan Potassium (Cozaar) 100 mg PO DAILY YAA PRN Reason: Protocol Last Admin: 02/03/17 10:43 Dose: 100 mg Ondansetron HCl (Zofran Inj) 4 mg IVP Q4H PRN; Protocol PRN Reason: Nausea/Vomiting Pantoprazole Sodium (Protonix Ec Tab) 40 mg PO 0600 YAA PRN Reason: Protocol Last Admin: 02/04/17 05:08 Dose: 40 mg Spironolactone (Aldactone) 25 mg PO BID YAA PRN Reason: Protocol Last Admin: 02/03/17 17:19 Dose: 25 mg Warfarin Sodium (Coumadin) 4 mg PO 1800 YAA PRN Reason: Protocol Last Admin: 02/03/17 17:22 Dose: 4 mg - Labs Labs: 02/03/17 08:00 02/03/17 08:00 PT 29.7 SECONDS (9.4-12.5) H 02/03/17 08:00 INR 2.65 (0.93-1.08) H 02/03/17 08:00 Assessment and Plan - Assessment and Plan (Free Text) Assessment: Dyspnea/Edema CHF-IV CCM on home milrinone infusion Severe MR,TR and PH on echo PAF ICD Stroke Gout Hypothyroidism GB, Back and Hernia Surgery Plan: Todays's labs pending. TCU/PT/Rehab Efforts Continue milrinone,PO spironolactone. Switch to PO lasix. Monitor Labs, INR's OOB as mireille Will Follow.
[2017-02-04 08:30] LABS: INR 2.26 (0.93-1.08)
[2017-02-04 08:49] LABS: BILIRUBIN,TOTAL 1.9 mg/dL (0.2-1.3); CALCIUM 9.4 mg/dL (8.4-10.5); POTASSIUM 4.5 mmol/L (3.6-5.0); TOTAL PROTEIN 6.8 g/dL (5.8-8.3)
[2017-02-04] MEDS: Digoxin 125 mcg (0.125 mg) Tab PO SCH (13:38)
[2017-02-05] MEDS: Milrinone 20mg/100ml D5W 100 ML IV PRN ×2 (00:57→21:48)
[2017-02-05] MEDS: Pantoprazole 40 mg EC Tab PO SCH (05:08)
[2017-02-05] MEDS: Levothyroxine 112 MCG TAB PO SCH (05:09)
[2017-02-05 08:15] LABS: INR 2.27 (0.93-1.08)
--- NOTE | 2017-02-05 11:16 | CP.PCM.PN ---
<Feliberto Sprague - Last Filed: 02/05/17 12:02> Subjective - Date & Time of Evaluation Date of Evaluation: 02/05/17 Time of Evaluation: 08:35 - Subjective Subjective: Feliberto Sprague DO, PGY-1, Hospitalist Service Patient seen and examined at bedside. Patient denies any increase in weight, changes in appetite, dyspnea, or worsening LE edema. Nurse reports no events overnight. Objective - Vital Signs/Intake and Output Vital Signs (last 24 hours): Temp Pulse Resp BP Pulse Ox 97.6 F 67 20 124/54 L 98 02/05/17 06:00 02/05/17 06:00 02/05/17 06:00 02/05/17 10:51 02/05/17 06:00 Intake and Output: 02/05/17 02/05/17 06:59 18:59 Intake Total 100 Balance 100 - Medications Medications: Current Medications Colchicine (Colocrys) 0.6 mg PO DAILY [facility] PRN Reason: Protocol Last Admin: 02/05/17 10:50 Dose: 0.6 mg Digoxin (Lanoxin) 0.125 mg PO 1400 [facility] PRN Reason: Protocol Last Admin: 02/04/17 13:38 Dose: 0.125 mg Furosemide (Lasix) 40 mg PO DAILY [facility] Last Admin: 02/05/17 10:51 Dose: 40 mg Milrinone Lactate/Dextrose (Primacor 20mg/100ml D5w) 100 mls @ 5.866 mls/hr IV .Q17H3M PRN; Protocol; 0.233 MCG/KG/MIN PRN Reason: TITRATE PER MD ORDER Last Admin: 02/05/17 00:57 Dose: 0.233 mcg/kg/min, 5.866 mls/hr Isosorbide Mononitrate (Imdur) 60 mg PO 0600 [facility] PRN Reason: Protocol Last Admin: 02/05/17 05:09 Dose: 60 mg Levothyroxine Sodium (Synthroid) 112 mcg PO 0600 [facility] PRN Reason: Protocol Last Admin: 02/05/17 05:09 Dose: 112 mcg Losartan Potassium (Cozaar) 100 mg PO DAILY [facility] PRN Reason: Protocol Last Admin: 02/05/17 10:50 Dose: Not Given Metoprolol Tartrate (Lopressor) 25 mg PO BRKDIN [facility] Ondansetron HCl (Zofran Inj) 4 mg IVP Q4H PRN; Protocol PRN Reason: Nausea/Vomiting Pantoprazole Sodium (Protonix Ec Tab) 40 mg PO 0600 [facility] PRN Reason: Protocol Last Admin: 02/05/17 05:08 Dose: 40 mg Spironolactone (Aldactone) 25 mg PO BID [facility] PRN Reason: Protocol Last Admin: 02/05/17 10:50 Dose: 25 mg Warfarin Sodium (Coumadin) 2 mg PO 1800 [facility] PRN Reason: Protocol Last Admin: 02/04/17 17:11 Dose: 2 mg - Labs Labs: 02/03/17 08:00 02/04/17 08:00 PT 25.4 SECONDS (9.4-12.5) H 02/05/17 07:20 INR 2.27 (0.93-1.08) H 02/05/17 07:20 - Constitutional Appears: Well, No Acute Distress - Head Exam Head Exam: ATRAUMATIC, NORMOCEPHALIC - Eye Exam Eye Exam: EOMI, Normal appearance - ENT Exam ENT Exam: Mucous Membranes Moist, Normal Oropharynx - Neck Exam Neck Exam: Normal Inspection. absent: Lymphadenopathy - Respiratory Exam Respiratory Exam: Rales (left lung base), NORMAL BREATHING PATTERN - Cardiovascular Exam Cardiovascular Exam: RRR, +S1, +S2 - GI/Abdominal Exam GI & Abdominal Exam: Soft, Normal Bowel Sounds - Extremities Exam Extremities Exam: Normal Capillary Refill, Normal Inspection. absent: Pedal Edema - Back Exam Back Exam: NORMAL INSPECTION. absent: CVA tenderness (L), CVA tenderness (R) - Neurological Exam Neurological Exam: Alert, Awake, CN II-XII Intact, Oriented x3 - Psychiatric Exam Psychiatric exam: Normal Affect, Normal Mood - Skin Skin Exam: Dry, Intact, Normal Color, Warm Assessment and Plan - Assessment and Plan (Free Text) Assessment: 86 year old female with a past medical of CHF (EF of 8% with an AICD on IV Milrinone for the past 2.5 years), atrial fibrillation, hypothyroidism, and gout who presents with acute on chronic CHF that improved significantly with medical therapy, including, but not limited to diuresis, oxygen therapy, and the the recommendations from cardiology. She is currently in the TCU receiving physical therapy for deconditioning. Her weight has come down, legs are much less swollen, and her symptoms of dyspnea has nearly resolved. Plan: 1) CHF exacerbation -Lasix 40 mg daily -Continue Milrinone drip -Digoxin 0.125 - Isosorbide mononitrate 60 mg PO daily - Cozaar 100 mg -Spirinonolactone 25 mg BID -Strict I's and O's -Daily weights: 174 lbs -Head of bed to 30 degrees -HHD, low salt diet - MARLEEN stockings added 2) Atrial fibrillation - Metoprolol 25 mg BID - Coumadin 2 mg PO daily: monitor INR daily in AM 3) Hypothyroidism -Continue Synthroid 112 mcg PO daily 4) Gout -Colchicine 0.6 mg daily PO 5. GI prophylaxis -Protonix 40 mg 6) Physical therapy: deconditioning and gait instability <Marvin Guerrero - Last Filed: 02/05/17 13:37> Objective - Vital Signs/Intake and Output Vital Signs (last 24 hours): Temp Pulse Resp BP Pulse Ox 97.6 F 67 20 124/54 L 98 02/05/17 06:00 02/05/17 06:00 02/05/17 06:00 02/05/17 10:51 02/05/17 06:00 Intake and Output: 02/05/17 02/05/17 06:59 18:59 Intake Total 100 Balance 100 - Medications Medications: Current Medications Colchicine (Colocrys) 0.6 mg PO DAILY [facility] PRN Reason: Protocol Last Admin: 02/05/17 10:50 Dose: 0.6 mg Digoxin (Lanoxin) 0.125 mg PO 1400 [facility] PRN Reason: Protocol Last Admin: 02/04/17 13:38 Dose: 0.125 mg Furosemide (Lasix) 40 mg PO DAILY [facility] Last Admin: 02/05/17 10:51 Dose: 40 mg Milrinone Lactate/Dextrose (Primacor 20mg/100ml D5w) 100 mls @ 5.866 mls/hr IV .Q17H3M PRN; Protocol; 0.233 MCG/KG/MIN PRN Reason: TITRATE PER MD ORDER Last Admin: 02/05/17 00:57 Dose: 0.233 mcg/kg/min, 5.866 mls/hr Isosorbide Mononitrate (Imdur) 60 mg PO 0600 [facility] PRN Reason: Protocol Last Admin: 02/05/17 05:09 Dose: 60 mg Levothyroxine Sodium (Synthroid) 112 mcg PO 0600 [facility] PRN Reason: Protocol Last Admin: 02/05/17 05:09 Dose: 112 mcg Losartan Potassium (Cozaar) 100 mg PO DAILY [facility] PRN Reason: Protocol Last Admin: 02/05/17 10:50 Dose: Not Given Metoprolol Tartrate (Lopressor) 25 mg PO BRKDIN [facility] Ondansetron HCl (Zofran Inj) 4 mg IVP Q4H PRN; Protocol PRN Reason: Nausea/Vomiting Pantoprazole Sodium (Protonix Ec Tab) 40 mg PO 0600 [facility] PRN Reason: Protocol Last Admin: 02/05/17 05:08 Dose: 40 mg Spironolactone (Aldactone) 25 mg PO BID [facility] PRN Reason: Protocol Last Admin: 02/05/17 10:50 Dose: 25 mg Warfarin Sodium (Coumadin) 2 mg PO 1800 [facility] PRN Reason: Protocol Last Admin: 02/04/17 17:11 Dose: 2 mg - Labs Labs: 02/03/17 08:00 02/04/17 08:00 PT 25.4 SECONDS (9.4-12.5) H 02/05/17 07:20 INR 2.27 (0.93-1.08) H 02/05/17 07:20 Attending/Attestation - Attestation I have personally seen and examined this patient.: Yes I have fully participated in the care of the patient.: Yes I have reviewed all pertinent clinical information, including history, physical exam and plan: Yes Notes (Text): 02/05/17 13:36 attending note; Patient seen and examined with resident in TCU. Patient is a 85-year-old female with a past medical history of cardiomyopathy, AICD/ppm, pulmonary hypertension, on home milrinone drip is admitted with Acute decompensated systolic heart failure on chronic CHF. Treated with IV Lasix. leg swelling is improving. Urine output is increasing. weight is 174 lbs today. Currently on by mouth Lasix. Cardiology evaluation appreciated. Continue milrinone drip. Aldactone added. INR is 2.2 today. Continue Coumadin. Continue physical therapy and gait training. Upon discharge patient will follow-up with PMD .
--- NOTE | 2017-02-05 11:44 | PN ---
DATE: 02/05/2017 SUBJECTIVE: The patient is seen lying in bed on Transitional Care Unit. She feels better. Her dyspnea is improved. She continues to have some leg edema. Her medications remain unchanged. They are Aldactone 25 mg b.i.d., Colchicine 0.6 mg daily, Coumadin, Cozaar 100 mg daily, Imdur 60 mg daily, digoxin 0.125 mg daily, Lasix 40 mg daily, milrinone infusion, Protonix, Synthroid 112 mcg daily. PHYSICAL EXAMINATION: GENERAL: She is a very elderly woman, appears comfortable at rest. VITAL SIGNS: Her blood pressure is 122/60 with a pulse of 66, respirations are 14. She is afebrile. HEENT: No JVD. CHEST: Bilateral scattered rhonchi with faint rales at the left base. HEART: PMI displaced laterally with soft tones noted. ABDOMEN: Soft, nontender. Normoactive bowel sounds. EXTREMITIES: 1+ leg edema. DIAGNOSTIC DATA: INR is 2.27. Last BUN and creatinine were 28 and 1.5 with a potassium of 4.5. IMPRESSION: 1. Advanced congestive heart failure with recent decompensation, predominantly systolic. 2. Congestive cardiomyopathy. 3. Severe mitral and tricuspid regurgitation. 4. Paroxysmal atrial fibrillation. 5. Status post prior implantable cardioverter-defibrillator implant. RECOMMENDATIONS: Her all medications will be continued at this time as well as her IV milrinone. Her beta emilia therapy will be resumed as this was discontinued for some unclear reason. Decreased activity and exercise as advised. Continue use of compression stockings as advised as well. Continued sodium restriction was recommended. We will continue to follow and make further recommendations as appropriate. Dino Thompson MD
[2017-02-05] MEDS: Digoxin 125 mcg (0.125 mg) Tab PO SCH (14:16)
[2017-02-06] MEDS: Levothyroxine 112 MCG TAB PO SCH (05:44)
[2017-02-06] MEDS: Pantoprazole 40 mg EC Tab PO SCH (05:44)
[2017-02-06 07:30] LABS: INR 2.36 (0.93-1.08)
[2017-02-06] MEDS: Digoxin 125 mcg (0.125 mg) Tab PO SCH (14:44)
[2017-02-06] MEDS: Milrinone 20mg/100ml D5W 100 ML IV PRN (16:55)
[2017-02-07] MEDS: Levothyroxine 112 MCG TAB PO SCH (05:23)
[2017-02-07] MEDS: Pantoprazole 40 mg EC Tab PO SCH (05:23)
--- NOTE | 2017-02-07 07:16 | CP.PCM.PN ---
<Feliberto Sprague - Last Filed: 02/07/17 11:57> Subjective - Date & Time of Evaluation Date of Evaluation: 02/07/17 Time of Evaluation: 07:13 - Subjective Subjective: Feliberto Sprague DO, PGY-1, Hospitalist Service Patient seen and examined at bedside. Patient is sleeping in recliner. Patient denies any fever, chills, dyspnea, chest pain, or worsening lower extremity edema. Last weight was 174 lbs taken yesterday on a standing scale. Input have equaled output for the past 2 days. Night resident reports patient complained of headache and was given 650 of Acetaminophen at 22:30 last night. Objective - Vital Signs/Intake and Output Vital Signs (last 24 hours): Temp Pulse Resp BP Pulse Ox 97.7 F 70 20 126/81 97 02/07/17 06:00 02/07/17 06:00 02/07/17 06:00 02/07/17 06:00 02/07/17 06:00 - Medications Medications: Current Medications Colchicine (Colocrys) 0.6 mg PO DAILY [facility] PRN Reason: Protocol Last Admin: 02/06/17 10:14 Dose: 0.6 mg Digoxin (Lanoxin) 0.125 mg PO 1400 [facility] PRN Reason: Protocol Last Admin: 02/06/17 14:44 Dose: 0.125 mg Furosemide (Lasix) 40 mg PO DAILY [facility] Last Admin: 02/06/17 10:14 Dose: 40 mg Milrinone Lactate/Dextrose (Primacor 20mg/100ml D5w) 100 mls @ 5.866 mls/hr IV .Q17H3M PRN; Protocol; 0.233 MCG/KG/MIN PRN Reason: TITRATE PER MD ORDER Last Admin: 02/06/17 16:55 Dose: 0.233 mcg/kg/min, 5.866 mls/hr Isosorbide Mononitrate (Imdur) 60 mg PO 0600 [facility] PRN Reason: Protocol Last Admin: 02/07/17 05:23 Dose: 60 mg Levothyroxine Sodium (Synthroid) 112 mcg PO 0600 [facility] PRN Reason: Protocol Last Admin: 02/07/17 05:23 Dose: 112 mcg Losartan Potassium (Cozaar) 100 mg PO DAILY [facility] PRN Reason: Protocol Last Admin: 02/06/17 10:14 Dose: 100 mg Metoprolol Tartrate (Lopressor) 25 mg PO BRKDIN [facility] Last Admin: 02/06/17 17:43 Dose: 25 mg Ondansetron HCl (Zofran Inj) 4 mg IVP Q4H PRN; Protocol PRN Reason: Nausea/Vomiting Last Admin: 02/06/17 11:41 Dose: 4 mg Pantoprazole Sodium (Protonix Ec Tab) 40 mg PO 0600 [facility] PRN Reason: Protocol Last Admin: 02/07/17 05:23 Dose: 40 mg Spironolactone (Aldactone) 25 mg PO BID [facility] PRN Reason: Protocol Last Admin: 02/06/17 17:43 Dose: 25 mg Warfarin Sodium (Coumadin) 2 mg PO 1800 [facility] PRN Reason: Protocol Last Admin: 02/06/17 17:44 Dose: 2 mg - Labs Labs: 02/03/17 08:00 02/04/17 08:00 PT 26.4 SECONDS (9.4-12.5) H 02/06/17 06:00 INR 2.36 (0.93-1.08) H 02/06/17 06:00 - Constitutional Appears: Well, Non-toxic, No Acute Distress - Head Exam Head Exam: ATRAUMATIC, NORMOCEPHALIC - Eye Exam Eye Exam: EOMI, Normal appearance, PERRL Pupil Exam: NORMAL ACCOMODATION - ENT Exam ENT Exam: Mucous Membranes Moist - Neck Exam Neck Exam: Normal Inspection. absent: Lymphadenopathy - Respiratory Exam Respiratory Exam: Rales (some rales in left lung base, right lung was clear to auscultation) - Cardiovascular Exam Cardiovascular Exam: RRR, +S1, +S2 - GI/Abdominal Exam GI & Abdominal Exam: Soft, Normal Bowel Sounds - Extremities Exam Extremities Exam: Normal Capillary Refill, Normal Inspection. absent: Pedal Edema Additional comments: Wearing Marleen stockings, 2/4 pitting edema bilaterally - Back Exam Back Exam: NORMAL INSPECTION. absent: CVA tenderness (L), CVA tenderness (R) - Neurological Exam Neurological Exam: Alert, Awake, CN II-XII Intact, Oriented x3 Neuro motor strength exam: Left Upper Extremity: 5, Right Upper Extremity: 5, Left Lower Extremity: 5, Right Lower Extremity: 5 - Psychiatric Exam Psychiatric exam: Normal Affect, Normal Mood - Skin Skin Exam: Dry, Intact, Normal Color, Warm Assessment and Plan - Assessment and Plan (Free Text) Assessment: 86 year old female with a past medical of CHF (EF of 8% with an AICD on IV Milrinone for the past 2.5 years), atrial fibrillation, hypothyroidism, and gout who presents with acute on chronic CHF that improved significantly with medical therapy, including, but not limited to diuresis, oxygen therapy, and the the recommendations from cardiology. She is currently in the TCU receiving physical therapy for deconditioning. Her weight has come down, her legs are much less swollen, her symptoms of dyspnea have resolved, and her INR is currently therapeutic. Plan: 1) CHF exacerbation -Lasix 40 mg daily -Continue Milrinone drip -Digoxin 0.125 - Isosorbide mononitrate 60 mg PO daily - Cozaar 100 mg -Spirinonolactone 25 mg BID -Strict I's and O's -Daily weights: 174 lbs -Head of bed to 30 degrees -HHD, low salt diet - MARLEEN stockings 2) Atrial fibrillation - Metoprolol 25 mg BID - Coumadin 2 mg PO daily: monitor INR daily in AM 3) Hypothyroidism -Continue Synthroid 112 mcg PO daily 4) Gout -Colchicine 0.6 mg daily PO 5. GI prophylaxis -Protonix 40 mg 6) Physical therapy: continue with deconditioning and gait instability <Marleny Man - Last Filed: 02/07/17 12:10> Objective - Vital Signs/Intake and Output Vital Signs (last 24 hours): Temp Pulse Resp BP Pulse Ox 98.8 F 70 16 112/52 L 97 02/07/17 11:22 02/07/17 11:22 02/07/17 11:22 02/07/17 11:22 02/07/17 11:22 - Medications Medications: Current Medications Colchicine (Colocrys) 0.6 mg PO DAILY [facility] PRN Reason: Protocol Last Admin: 02/07/17 10:40 Dose: 0.6 mg Digoxin (Lanoxin) 0.125 mg PO 1400 [facility] PRN Reason: Protocol Last Admin: 02/06/17 14:44 Dose: 0.125 mg Furosemide (Lasix) 40 mg PO DAILY [facility] Last Admin: 02/07/17 10:58 Dose: 40 mg Milrinone Lactate/Dextrose (Primacor 20mg/100ml D5w) 100 mls @ 5.866 mls/hr IV .Q17H3M PRN; Protocol; 0.233 MCG/KG/MIN PRN Reason: TITRATE PER MD ORDER Last Admin: 02/06/17 16:55 Dose: 0.233 mcg/kg/min, 5.866 mls/hr Isosorbide Mononitrate (Imdur) 60 mg PO 0600 [facility] PRN Reason: Protocol Last Admin: 02/07/17 05:23 Dose: 60 mg Levothyroxine Sodium (Synthroid) 112 mcg PO 0600 [facility] PRN Reason: Protocol Last Admin: 02/07/17 05:23 Dose: 112 mcg Losartan Potassium (Cozaar) 100 mg PO DAILY [facility] PRN Reason: Protocol Last Admin: 02/07/17 10:58 Dose: Not Given Metoprolol Tartrate (Lopressor) 25 mg PO BRKDIN [facility] Last Admin: 02/07/17 08:31 Dose: 25 mg Ondansetron HCl (Zofran Inj) 4 mg IVP Q4H PRN; Protocol PRN Reason: Nausea/Vomiting Last Admin: 02/06/17 11:41 Dose: 4 mg Pantoprazole Sodium (Protonix Ec Tab) 40 mg PO 0600 [facility] PRN Reason: Protocol Last Admin: 02/07/17 05:23 Dose: 40 mg Spironolactone (Aldactone) 25 mg PO BID [facility] PRN Reason: Protocol Last Admin: 02/07/17 10:40 Dose: 25 mg Warfarin Sodium (Coumadin) 2 mg PO 1800 [facility] PRN Reason: Protocol Last Admin: 02/06/17 17:44 Dose: 2 mg - Labs Labs: 02/03/17 08:00 02/04/17 08:00 PT 24.4 SECONDS (9.4-12.5) H 02/07/17 08:55 INR 2.18 (0.93-1.08) H 02/07/17 08:55 Attending/Attestation - Attestation I have personally seen and examined this patient.: Yes I have fully participated in the care of the patient.: Yes I have reviewed all pertinent clinical information, including history, physical exam and plan: Yes Notes (Text): 02/07/17 12:06 86 year old female with past medical history of cardiomyopathy, AICD/PPM, and hypothyroidism who was admitted for acute CHF exaceration. Symptoms improved with iv lasix and milrinone infusion. She is also on spironalactone, digoxin, imdur, cozaar and metoprolol. She is on coumadin and metoprolol for history of AFib. INR this morning is 2.18. Cardiology is following the patient. Continue with synthroid for hypothyroidism. Continue with physical therapy while in TCU. Marleny Man MD Hospitalist.
--- NOTE | 2017-02-07 08:01 | CP.PCM.PN ---
Subjective - Date & Time of Evaluation Date of Evaluation: 02/07/17 Time of Evaluation: 07:00 - Subjective Subjective: Stable on TCU. Nausea and vomited once, clear fluid, during the night. No CP or SOB. V/S noted PE: Lungs: few rhonchi Cor: S1s2, sys. murmur Abd.: soft Ext: no edema Neuro: alert 02/06 INR = 2.36 Objective - Vital Signs/Intake and Output Vital Signs (last 24 hours): Temp Pulse Resp BP Pulse Ox 97.7 F 70 20 126/81 97 02/07/17 06:00 02/07/17 06:00 02/07/17 06:00 02/07/17 06:00 02/07/17 06:00 - Medications Medications: Current Medications Colchicine (Colocrys) 0.6 mg PO DAILY [facility] PRN Reason: Protocol Last Admin: 02/06/17 10:14 Dose: 0.6 mg Digoxin (Lanoxin) 0.125 mg PO 1400 [facility] PRN Reason: Protocol Last Admin: 02/06/17 14:44 Dose: 0.125 mg Furosemide (Lasix) 40 mg PO DAILY [facility] Last Admin: 02/06/17 10:14 Dose: 40 mg Milrinone Lactate/Dextrose (Primacor 20mg/100ml D5w) 100 mls @ 5.866 mls/hr IV .Q17H3M PRN; Protocol; 0.233 MCG/KG/MIN PRN Reason: TITRATE PER MD ORDER Last Admin: 02/06/17 16:55 Dose: 0.233 mcg/kg/min, 5.866 mls/hr Isosorbide Mononitrate (Imdur) 60 mg PO 0600 [facility] PRN Reason: Protocol Last Admin: 02/07/17 05:23 Dose: 60 mg Levothyroxine Sodium (Synthroid) 112 mcg PO 0600 [facility] PRN Reason: Protocol Last Admin: 02/07/17 05:23 Dose: 112 mcg Losartan Potassium (Cozaar) 100 mg PO DAILY [facility] PRN Reason: Protocol Last Admin: 02/06/17 10:14 Dose: 100 mg Metoprolol Tartrate (Lopressor) 25 mg PO BRKDIN [facility] Last Admin: 02/06/17 17:43 Dose: 25 mg Ondansetron HCl (Zofran Inj) 4 mg IVP Q4H PRN; Protocol PRN Reason: Nausea/Vomiting Last Admin: 02/06/17 11:41 Dose: 4 mg Pantoprazole Sodium (Protonix Ec Tab) 40 mg PO 0600 [facility] PRN Reason: Protocol Last Admin: 02/07/17 05:23 Dose: 40 mg Spironolactone (Aldactone) 25 mg PO BID [facility] PRN Reason: Protocol Last Admin: 02/06/17 17:43 Dose: 25 mg Warfarin Sodium (Coumadin) 2 mg PO 1800 [facility] PRN Reason: Protocol Last Admin: 02/06/17 17:44 Dose: 2 mg - Labs Labs: 02/03/17 08:00 02/04/17 08:00 PT 26.4 SECONDS (9.4-12.5) H 02/06/17 06:00 INR 2.36 (0.93-1.08) H 02/06/17 06:00 Assessment and Plan - Assessment and Plan (Free Text) Assessment: Dyspnea/Edema CHF-IV CCM on home milrinone infusion Severe MR,TR and PH on echo PAF ICD Stroke Gout Hypothyroidism GB, Back and Hernia Surgery Plan: Await today's INR TCU/PT/Rehab Efforts Continue milrinone,PO spironolactone, PO lasix. Monitor Labs, INR's in AM OOB as mireille Will Follow.
[2017-02-07 09:08] LABS: INR 2.18 (0.93-1.08)
[2017-02-07] MEDS: Milrinone 20mg/100ml D5W 100 ML IV PRN (12:14)
[2017-02-07] MEDS: Digoxin 125 mcg (0.125 mg) Tab PO SCH (14:27)
[2017-02-08] MEDS: Levothyroxine 112 MCG TAB PO SCH (05:42)
[2017-02-08] MEDS: Pantoprazole 40 mg EC Tab PO SCH (05:43)
[2017-02-08 07:22] LABS: INR 2.01 (0.93-1.08)
[2017-02-08 07:29] LABS: CALCIUM 9.2 mg/dL (8.4-10.5); MAGNESIUM 1.8 mg/dL (1.7-2.2)
[2017-02-08] MEDS: Milrinone 20mg/100ml D5W 100 ML IV PRN ×2 (07:39→23:38)
--- NOTE | 2017-02-08 07:58 | CP.PCM.PN ---
Subjective - Date & Time of Evaluation Date of Evaluation: 02/08/17 Time of Evaluation: 07:00 - Subjective Subjective: Stable on TCU. No CP or SOB. V/S noted PE: Lungs: few rhonchi Cor: S1s2, sys. murmur Abd.: soft Ext: no edema Neuro: alert 02/06 INR = 2.01, Cr. = 1.6, += 5.0 Objective - Vital Signs/Intake and Output Vital Signs (last 24 hours): Temp Pulse Resp BP Pulse Ox 98.0 F 69 20 123/58 L 97 02/08/17 06:00 02/08/17 07:39 02/08/17 06:00 02/08/17 07:39 02/08/17 06:00 Intake and Output: 02/08/17 02/08/17 06:59 18:59 Intake Total 100 Balance 100 - Medications Medications: Current Medications Colchicine (Colocrys) 0.6 mg PO DAILY [facility] PRN Reason: Protocol Last Admin: 02/07/17 10:40 Dose: 0.6 mg Digoxin (Lanoxin) 0.125 mg PO 1400 [facility] PRN Reason: Protocol Last Admin: 02/07/17 14:27 Dose: 0.125 mg Furosemide (Lasix) 40 mg PO DAILY [facility] Last Admin: 02/07/17 10:58 Dose: 40 mg Milrinone Lactate/Dextrose (Primacor 20mg/100ml D5w) 100 mls @ 5.866 mls/hr IV .Q17H3M PRN; Protocol; 0.233 MCG/KG/MIN PRN Reason: TITRATE PER MD ORDER Last Admin: 02/08/17 07:39 Dose: 0.233 mcg/kg/min, 5.866 mls/hr Isosorbide Mononitrate (Imdur) 60 mg PO 0600 [facility] PRN Reason: Protocol Last Admin: 02/08/17 05:43 Dose: 60 mg Levothyroxine Sodium (Synthroid) 112 mcg PO 0600 [facility] PRN Reason: Protocol Last Admin: 02/08/17 05:42 Dose: 112 mcg Losartan Potassium (Cozaar) 100 mg PO DAILY [facility] PRN Reason: Protocol Last Admin: 02/07/17 10:58 Dose: Not Given Metoprolol Tartrate (Lopressor) 25 mg PO BRKDIN [facility] Last Admin: 02/07/17 18:53 Dose: Not Given Ondansetron HCl (Zofran Inj) 4 mg IVP Q4H PRN; Protocol PRN Reason: Nausea/Vomiting Last Admin: 02/06/17 11:41 Dose: 4 mg Pantoprazole Sodium (Protonix Ec Tab) 40 mg PO 0600 [facility] PRN Reason: Protocol Last Admin: 02/08/17 05:43 Dose: 40 mg Spironolactone (Aldactone) 25 mg PO BID [facility] PRN Reason: Protocol Last Admin: 02/07/17 18:55 Dose: 25 mg Warfarin Sodium (Coumadin) 2.5 mg PO 1800 [facility] PRN Reason: Protocol Last Admin: 02/07/17 18:52 Dose: 2.5 mg - Labs Labs: 02/03/17 08:00 02/08/17 06:30 PT 22.4 SECONDS (9.4-12.5) H 02/08/17 06:50 INR 2.01 (0.93-1.08) H 02/08/17 06:50 Assessment and Plan - Assessment and Plan (Free Text) Assessment: Dyspnea/Edema CHF-IV CCM on home milrinone infusion Severe MR,TR and PH on echo PAF ICD Stroke Gout Hypothyroidism GB, Back and Hernia Surgery Plan: TCU/PT/Rehab Efforts Continue milrinone, PO lasix. Hold spironolactone today. Recheck K+, Cr. in AM. OOB as mireille Will Follow.
[2017-02-08 09:45] LABS: BASO # 0.05 K/mm3 (0.0-2.0); BASO % 0.7 % (0.0-3.0); EOS # 0.2 (0.0-0.7); GRAN # 4.22 (1.4-6.5); GRAN % 59.7 % (50.0-68.0); HEMATOCRIT 32.7 % (36.0-48.0); LYMPH # 1.9 (1.2-3.4); LYMPH % 27.1 % (22.0-35.0); MEAN CORPUSCULAR HEMOGLOBIN 31.2 pg (25.0-35.0); MEAN CORPUSCULAR HGB CONC 32.1 g/dl (31.0-37.0); MEAN PLATELET VOLUME 10.6 fl (7.0-11.0); MONO # 0.7 (0.1-0.6); MONO % 9.5 % (1.0-6.0); RED CELL DISTRIBUTION WIDTH 15.7 % (11.5-14.5); WHITE BLOOD COUNT 7.1 10^3/ul (4.5-11.0)
[2017-02-08] MEDS: Digoxin 125 mcg (0.125 mg) Tab PO SCH (13:53)
[2017-02-09] MEDS: Pantoprazole 40 mg EC Tab PO SCH (05:27)
[2017-02-09] MEDS: Levothyroxine 112 MCG TAB PO SCH (05:27)
[2017-02-09 07:51] LABS: INR 1.98 (0.93-1.08)
[2017-02-09 08:10] LABS: CALCIUM 9.3 mg/dL (8.4-10.5); POTASSIUM 5.1 mmol/L (3.6-5.0)
--- NOTE | 2017-02-09 09:58 | PN ---
DATE: 02/09/2017 SUBJECTIVE: The patient is seen lying in bed on Transitional Care Unit. She is comfortable at the present time. She denies any dyspnea at rest. She said unaware of any palpitations. Plan is being made for discharge home soon. Her current medications include Aldactone 25 mg b.i.d., colchicine 0.6 mg daily, Coumadin 2.5 mg daily, Cozaar 100 mg daily, Imdur 60 mg daily, digoxin 0.125 mg daily, Lasix 40 mg daily, metoprolol 25 mg b.i.d., milrinone infusion, Protonix, Synthroid 112 mcg daily and Zofran p.r.n. OBJECTIVE: GENERAL: She is a very elderly woman who is comfortable at rest. VITAL SIGNS: Blood pressure is 116/56 with pulse of 70, respirations are 14. She is afebrile. HEENT: No JVD. CHEST: Bilateral scattered rhonchi. HEART: PMI displaced laterally with soft tones noted. Systolic murmur at the apex. ABDOMEN: Soft, nontender with normoactive bowel sounds. EXTREMITIES: Trace ankle edema. DIAGNOSTIC DATA: BUN, creatinine at 30 and 1.5, potassium 5.1, INR is 1.98. IMPRESSION: 1. Congestive cardiomyopathy with class III heart failure symptoms, maintained on home milrinone infusion. 2. Severe mitral and tricuspid regurgitation. 3. Paroxysmal atrial fibrillation. 4. Status post implantable cardioverter-defibrillator implant. 5. Prior cerebrovascular accident. RECOMMENDATIONS: Her current medications should continue. From a cardiac standpoint, she appears fairly stable for discharge once medically cleared. An outpatient followup will be arranged upon discharge. Continue sodium and fluid restriction advised. Dino Thompson MD
--- NOTE | 2017-02-09 11:27 | CP.PCM.PN ---
<Feliberto Sprague - Last Filed: 02/09/17 13:57> Subjective - Date & Time of Evaluation Date of Evaluation: 02/09/17 Time of Evaluation: 11:25 - Subjective Subjective: Feliberto Sprague DO, PGY-1, Hospitalist Service Patient seen and examined at bedside. Patient denies any chest pain, dyspnea, nausea, vomiting or diarrhea. Nurse reports no events overnight. Patient is agreeable to going home tomorrow. Objective - Vital Signs/Intake and Output Vital Signs (last 24 hours): Temp Pulse Resp BP Pulse Ox 97.6 F 71 20 108/56 L 96 02/09/17 05:59 02/09/17 08:30 02/09/17 05:59 02/09/17 10:39 02/09/17 05:59 Intake and Output: 02/09/17 02/09/17 06:59 18:59 Intake Total 100 Balance 100 - Medications Medications: Current Medications Colchicine (Colocrys) 0.[address] [facility] PRN Reason: Protocol Last Admin: 02/09/17 10:37 Dose: 0.6 mg Digoxin (Lanoxin) 0.[address] [facility] PRN Reason: Protocol Last Admin: 02/08/17 13:53 Dose: 0.125 mg Furosemide (Lasix) [address] [facility] Last Admin: 02/09/17 10:39 Dose: 40 mg Milrinone Lactate/Dextrose (Primacor 20mg/100ml D5w) 100 mls @ 5.866 mls/hr IV .Q17H3M PRN; Protocol; 0.233 MCG/KG/MIN PRN Reason: TITRATE PER MD ORDER Last Admin: 02/08/17 23:38 Dose: 0.233 mcg/kg/min, 5.866 mls/hr Isosorbide Mononitrate (Imdur) [address] [facility] PRN Reason: Protocol Last Admin: 02/09/17 05:28 Dose: 60 mg Levothyroxine Sodium (Synthroid) [address] [facility] PRN Reason: Protocol Last Admin: 02/09/17 05:27 Dose: 112 mcg Losartan Potassium (Cozaar) [address] [facility] PRN Reason: Protocol Last Admin: 02/09/17 10:39 Dose: Not Given Metoprolol Tartrate (Lopressor) [address] [facility] Last Admin: 02/09/17 08:30 Dose: Not Given Ondansetron HCl (Zofran Inj) 4 mg IVP Q4H PRN; Protocol PRN Reason: Nausea/Vomiting Last Admin: 02/06/17 11:41 Dose: 4 mg Pantoprazole Sodium (Protonix Ec Tab) [address] [facility] PRN Reason: Protocol Last Admin: 02/09/17 05:27 Dose: 40 mg Spironolactone (Aldactone) [address] [facility] PRN Reason: Protocol Last Admin: 02/09/17 10:37 Dose: 25 mg Warfarin Sodium (Coumadin) 2.[address] [facility] PRN Reason: Protocol Last Admin: 02/08/17 17:38 Dose: 2.5 mg Warfarin Sodium (Coumadin) [address] [facility] PRN Reason: Protocol - Labs Labs: 02/08/17 09:20 02/09/17 07:10 PT 22.1 SECONDS (9.4-12.5) H 02/09/17 07:10 INR 1.98 (0.93-1.08) H 02/09/17 07:10 - Constitutional Appears: Well, Non-toxic - Head Exam Head Exam: ATRAUMATIC, NORMOCEPHALIC - Eye Exam Eye Exam: EOMI, Normal appearance Pupil Exam: NORMAL ACCOMODATION - ENT Exam ENT Exam: Mucous Membranes Moist - Neck Exam Neck Exam: Normal Inspection - Respiratory Exam Respiratory Exam: Clear to Ausculation Bilateral, NORMAL BREATHING PATTERN. absent: Rales - Cardiovascular Exam Cardiovascular Exam: Irregular Rhythm, +S1, +S2 - GI/Abdominal Exam GI & Abdominal Exam: Soft, Normal Bowel Sounds - Extremities Exam Extremities Exam: Full ROM, Normal Capillary Refill, Normal Inspection - Back Exam Back Exam: NORMAL INSPECTION. absent: CVA tenderness (L), CVA tenderness (R) - Neurological Exam Neurological Exam: Alert, Awake, CN II-XII Intact, Oriented x3 - Psychiatric Exam Psychiatric exam: Normal Affect, Normal Mood - Skin Skin Exam: Dry, Intact, Normal Color, Warm Assessment and Plan - Assessment and Plan (Free Text) Assessment: 86 year old female with a past medical of congestive cardiomyopathy (EF of 8% with an AICD on IV Milrinone for the past 2.5 years), atrial fibrillation, hypothyroidism, and gout who presents with acute on chronic CHF that improved significantly with medical therapy, including, but not limited to diuresis, oxygen therapy, and the the recommendations from cardiology. She is currently in the TCU receiving physical therapy for deconditioning. Her weight has come down, her legs are much less swollen, her symptoms of dyspnea have resolved. Plan: 1) CHF exacerbation -Lasix 40 mg daily -Continue Milrinone drip -Digoxin 0.125 - Isosorbide mononitrate 60 mg PO daily - Cozaar 100 mg -Spirinonolactone 25 mg BID (hold) -Strict I's and O's: balance of zero -Daily weights: 174 lbs -Head of bed to 30 degrees -HHD, low salt diet -MARLEEN stockings 1a) Elevated Cr and hyperkalemia: Spirinolactone held 2) Atrial fibrillation - Metoprolol 25 mg BID - Coumadin increased from 2.5 to 3 mg PO daily: last INR was 1.98. 3) Hypothyroidism -Continue Synthroid 112 mcg PO daily 4) Gout -Colchicine 0.6 mg daily PO 5. GI prophylaxis -Protonix 40 mg 6) Physical therapy: continue with deconditioning and gait instability Disposition: Patient to be discharged tomorrow. Infusion services will set up the at home Milrinone drip. <Marleny Man - Last Filed: 02/09/17 15:27> Objective - Vital Signs/Intake and Output Vital Signs (last 24 hours): Temp Pulse Resp BP Pulse Ox 97.6 F 71 20 108/56 L 96 02/09/17 05:59 02/09/17 08:30 02/09/17 05:59 02/09/17 10:39 02/09/17 05:59 Intake and Output: 02/09/17 02/09/17 06:59 18:59 Intake Total 100 Balance 100 - Medications Medications: Current Medications Colchicine (Colocrys) 0.6 mg PO DAILY [facility] PRN Reason: Protocol Last Admin: 02/09/17 10:37 Dose: 0.6 mg Digoxin (Lanoxin) 0.125 mg PO 1400 [facility] PRN Reason: Protocol Last Admin: 02/09/17 14:42 Dose: 0.125 mg Furosemide (Lasix) 40 mg PO DAILY [facility] Last Admin: 02/09/17 10:39 Dose: 40 mg Milrinone Lactate/Dextrose (Primacor 20mg/100ml D5w) 100 mls @ 5.866 mls/hr IV .Q17H3M PRN; Protocol; 0.233 MCG/KG/MIN PRN Reason: TITRATE PER MD ORDER Last Admin: 02/08/17 23:38 Dose: 0.233 mcg/kg/min, 5.866 mls/hr Isosorbide Mononitrate (Imdur) [address] [facility] PRN Reason: Protocol Last Admin: 02/09/17 05:28 Dose: 60 mg Levothyroxine Sodium (Synthroid) 112 mcg PO 0600 [facility] PRN Reason: Protocol Last Admin: 02/09/17 05:27 Dose: 112 mcg Losartan Potassium (Cozaar) [address] [facility] PRN Reason: Protocol Last Admin: 02/09/17 10:39 Dose: Not Given Metoprolol Tartrate (Lopressor) 25 mg PO BRKDIN [facility] Last Admin: 02/09/17 08:30 Dose: Not Given Ondansetron HCl (Zofran Inj) 4 mg IVP Q4H PRN; Protocol PRN Reason: Nausea/Vomiting Last Admin: 02/06/17 11:41 Dose: 4 mg Pantoprazole Sodium (Protonix Ec Tab) [address] [facility] PRN Reason: Protocol Last Admin: 02/09/17 05:27 Dose: 40 mg Spironolactone (Aldactone) [address] [facility] PRN Reason: Protocol Last Admin: 02/09/17 10:37 Dose: 25 mg Warfarin Sodium (Coumadin) [address] [facility] PRN Reason: Protocol - Labs Labs: 02/08/17 09:20 02/09/17 07:10 PT 22.1 SECONDS (9.4-12.5) H 02/09/17 07:10 INR 1.98 (0.93-1.08) H 02/09/17 07:10 Attending/Attestation - Attestation I have personally seen and examined this patient.: Yes I have fully participated in the care of the patient.: Yes I have reviewed all pertinent clinical information, including history, physical exam and plan: Yes Notes (Text): 02/09/17 14:47 86 year old female with past medical history of cardiomyopathy, AICD/PPM, and hypothyroidism who was admitted for acute CHF exaceration. Symptoms improved with iv lasix and milrinone infusion. She was also on spironalactone, digoxin, imdur, cozaar and metoprolol. Her spironalactone was held due to CKD which is stable. Potassium today is 5.1. Will monitor and repeat tomorrow. She is on coumadin and metoprolol for history of AFib. INR this morning is 1.98. Will increase her coumadin. Cardiology is following the patient. Continue with synthroid for hypothyroidism. Continue with physical therapy while in TCU. D/c planning possibly tomorrow. Marleny Man MD Hospitalist.
[2017-02-09] MEDS: Digoxin 125 mcg (0.125 mg) Tab PO SCH (14:42)
[2017-02-09 14:43] VITALS: PULSE 70
[2017-02-09] MEDS: Milrinone 20mg/100ml D5W 100 ML IV PRN (18:02)
[2017-02-10] MEDS: Pantoprazole 40 mg EC Tab PO SCH (05:44)
[2017-02-10] MEDS: Levothyroxine 112 MCG TAB PO SCH (05:44)
[2017-02-10 06:18] VITALS: RESP 20; O2SAT 99
--- NOTE | 2017-02-10 07:46 | CP.PCM.PN ---
Subjective - Date & Time of Evaluation Date of Evaluation: 02/10/17 Time of Evaluation: 07:00 - Subjective Subjective: Stable on TCU. No CP or SOB. V/S noted PE: Lungs: few rhonchi Cor: S1s2, sys. murmur Abd.: soft Ext: no edema Neuro: alert 02/09 INR = 1.98, Cr. = 1.5, += 5.1 Objective - Vital Signs/Intake and Output Vital Signs (last 24 hours): Temp Pulse Resp BP Pulse Ox 98 F 69 20 143/67 99 02/10/17 06:00 02/10/17 06:00 02/10/17 06:00 02/10/17 06:00 02/10/17 06:00 - Medications Medications: Current Medications Colchicine (Colocrys) 0.6 mg PO DAILY [facility] PRN Reason: Protocol Last Admin: 02/09/17 10:37 Dose: 0.6 mg Digoxin (Lanoxin) 0.125 mg PO 1400 [facility] PRN Reason: Protocol Last Admin: 02/09/17 14:42 Dose: 0.125 mg Furosemide (Lasix) 40 mg PO DAILY [facility] Last Admin: 02/09/17 10:39 Dose: 40 mg Milrinone Lactate/Dextrose (Primacor 20mg/100ml D5w) 100 mls @ 5.866 mls/hr IV .Q17H3M PRN; Protocol; 0.233 MCG/KG/MIN PRN Reason: TITRATE PER MD ORDER Last Admin: 02/09/17 18:02 Dose: 0.233 mcg/kg/min, 5.866 mls/hr Isosorbide Mononitrate (Imdur) 60 mg PO 0600 [facility] PRN Reason: Protocol Last Admin: 02/10/17 05:44 Dose: 60 mg Levothyroxine Sodium (Synthroid) 112 mcg PO 0600 [facility] PRN Reason: Protocol Last Admin: 02/10/17 05:44 Dose: 112 mcg Losartan Potassium (Cozaar) 100 mg PO DAILY [facility] PRN Reason: Protocol Last Admin: 02/09/17 10:39 Dose: Not Given Metoprolol Tartrate (Lopressor) 25 mg PO BRKDIN [facility] Last Admin: 02/09/17 18:00 Dose: 25 mg Ondansetron HCl (Zofran Inj) 4 mg IVP Q4H PRN; Protocol PRN Reason: Nausea/Vomiting Last Admin: 02/06/17 11:41 Dose: 4 mg Pantoprazole Sodium (Protonix Ec Tab) 40 mg PO 0600 [facility] PRN Reason: Protocol Last Admin: 02/10/17 05:44 Dose: 40 mg Spironolactone (Aldactone) 25 mg PO BID [facility] PRN Reason: Protocol Last Admin: 02/09/17 18:00 Dose: 25 mg Warfarin Sodium (Coumadin) 3 mg PO 1800 [facility] PRN Reason: Protocol Last Admin: 02/09/17 18:01 Dose: 3 mg - Labs Labs: 02/08/17 09:20 02/09/17 07:10 PT 22.1 SECONDS (9.4-12.5) H 02/09/17 07:10 INR 1.98 (0.93-1.08) H 02/09/17 07:10 Assessment and Plan - Assessment and Plan (Free Text) Assessment: Dyspnea/Edema CHF-IV CCM on home milrinone infusion Severe MR,TR and PH on echo PAF ICD Stroke Gout Hypothyroidism GB, Back and Hernia Surgery Plan: TCU/PT/Rehab Efforts Continue milrinone, PO lasix. Reduce spironolactone to 25 mg. QD. Hold spironolactone today. OOB as mireille. D/C planning for today. Will arrange OV for next week and infusion service for milrinone.
[2017-02-10 07:50] LABS: INR 1.94 (0.93-1.08)
[2017-02-10 08:24] LABS: BILIRUBIN,TOTAL 1.6 mg/dL (0.2-1.3); CALCIUM 9.4 mg/dL (8.4-10.5); POTASSIUM 4.8 mmol/L (3.6-5.0); TOTAL PROTEIN 7.2 g/dL (5.8-8.3)
[2017-02-10 10:16] VITALS: BP 140/78; PULSE 88
[2017-02-10 12:41] VITALS: TEMP 98
--- NOTE | 2017-02-10 14:06 | CP.PCM.DIS ---
<Feliberto Sprague - Last Filed: 02/10/17 14:35> Provider - Provider Date of Admission: 02/02/17 18:54 Attending physician: Marleny Man MD Primary care physician: Boaz Green MD Consults: Dr. Alcantara and Dr. Hunt Time Spent in preparation of Discharge (in minutes): 45 Hospital Course - Lab Results Lab Results: Most Recent Lab Values WBC 7.1 10^3/ul (4.5-11.0) 02/08/17 09:20 RBC 3.37 10^6/uL (3.5-6.1) L 02/08/17 09:20 Hgb 10.5 g/dL (12.0-16.0) L 02/08/17 09:20 Hct 32.7 % (36.0-48.0) L 02/08/17 09:20 MCV 97.0 fl (80.0-105.0) 02/08/17 09:20 MCH 31.2 pg (25.0-35.0) 02/08/17 09:20 MCHC 32.1 g/dl (31.0-37.0) 02/08/17 09:20 RDW 15.7 % (11.5-14.5) H 02/08/17 09:20 Plt Count 162 10^3/uL (120.0-450.0) 02/08/17 09:20 MPV 10.6 fl (7.0-11.0) 02/08/17 09:20 Gran % 59.7 % (50.0-68.0) 02/08/17 09:20 Lymph % (Auto) 27.1 % (22.0-35.0) 02/08/17 09:20 [place] % (Auto) 9.5 % (1.0-6.0) H 02/08/17 09:20 Eos % (Auto) 3.0 % (1.5-5.0) 02/08/17 09:20 Baso % (Auto) 0.7 % (0.0-3.0) 02/08/17 09:20 Gran # 4.22 (1.4-6.5) 02/08/17 09:20 Lymph # 1.9 (1.2-3.4) 02/08/17 09:20 [place] # 0.7 (0.1-0.6) H 02/08/17 09:20 Eos # 0.2 (0.0-0.7) 02/08/17 09:20 Baso # 0.05 K/mm3 (0.0-2.0) 02/08/17 09:20 PT 21.6 SECONDS (9.4-12.5) H 02/10/17 07:00 INR 1.94 (0.93-1.08) H 02/10/17 07:00 Sodium 132 mmol/L (132-148) 02/10/17 07:00 Potassium 4.8 mmol/L (3.6-5.0) 02/10/17 07:00 Chloride 97 mmol/L (98-107) L 02/10/17 07:00 Carbon Dioxide 25 mmol/L (21-33) 02/10/17 07:00 Anion Gap 15 (10-20) 02/10/17 07:00 BUN 30 mg/dL (7-21) H 02/10/17 07:00 Creatinine 1.5 mg/dl (0.7-1.2) H 02/10/17 07:00 Est GFR ( Amer) 40 02/10/17 07:00 Est GFR (Non-Af Amer) 33 02/10/17 07:00 Random Glucose 89 mg/dL (70-110) 02/10/17 07:00 Calcium 9.4 mg/dL (8.4-10.5) 02/10/17 07:00 Magnesium 1.8 mg/dL (1.7-2.2) 02/08/17 06:30 Total Bilirubin 1.6 mg/dL (0.2-1.3) H 02/10/17 07:00 AST 30 U/L (14-36) 02/10/17 07:00 ALT 26 U/L (7-56) 02/10/17 07:00 Alkaline Phosphatase 104 U/L (38-126) 02/10/17 07:00 Total Protein 7.2 g/dL (5.8-8.3) 02/10/17 07:00 Albumin 3.6 g/dL (3.0-4.8) 02/10/17 07:00 Globulin 3.6 gm/dL 02/10/17 07:00 Albumin/Globulin Ratio 1.0 (1.1-1.8) L 02/10/17 07:00 - Hospital Course Hospital Course: 86 year old female with a past medical of congestive cardiomyopathy (EF of 8% with an AICD on IV Milrinone for the past 2.5 years), atrial fibrillation, hypothyroidism, and gout who presents with acute on chronic CHF that improved significantly with medical therapy, including, but not limited to diuresis, oxygen therapy, and recommendations from cardiology. Whilst in the hospital her weight came down to baseline, her lower extremity edema improved, and her symptoms of dyspnea resolved. She was transferred to the Transitional Care Unit with physical therapy for deconditioning. . Whilst in the the Transitional Care Unit she was treated with physical therapy and followed by cardiology daily. She was educated on checking her weight daily using the same scale, restricting her Sodium intake to less than 2 grams, monitoring her urine output, eating a heart healthy diet, arranged for at home health services (including infusion services) and informed to follow-up with her PMD and have her INR checked and her Coumadin dosed accordingly. - Date & Time of H&P Date of H&P: 02/10/17 Time of H&P: 14:19 Discharge Exam - Head Exam Head Exam: ATRAUMATIC, NORMOCEPHALIC - Eye Exam Eye Exam: EOMI, Normal appearance, PERRL - ENT Exam ENT Exam: Mucous Membranes Moist, Normal Oropharynx - Neck Exam Neck exam: Normal Inspection Additional comments: No JVD - Respiratory Exam Respiratory Exam: Clear to PA & Lateral, NORMAL BREATHING PATTERN - Cardiovascular Exam Cardiovascular Exam: RRR, +S1, +S2 - GI/Abdominal Exam GI & Abdominal Exam: Normal Bowel Sounds, Unremarkable. absent: Guarding - Extremities Exam Extremities exam: normal capillary refill, pedal edema (trace) - Back Exam Back exam: NORMAL INSPECTION. absent: CVA tenderness (L), CVA tenderness (R) - Neurological Exam Neurological exam: Alert, CN II-XII Intact, Oriented x3 - Psychiatric Exam Psychiatric exam: Normal Affect, Normal Mood - Skin Skin Exam: Dry, Intact, Normal Color, Warm Discharge Plan - Discharge Medications Prescriptions: Colchicine 0.6 mg PO DAILY 30 Days tablet Digoxin [Lanoxin] 0.125 mg PO 1400 #30 tab Furosemide [Lasix] 20 mg PO BID #60 tab Isosorbide Mononitrate [Imdur] 60 mg PO 0600 #30 tab Levothyroxine [Synthroid] 112 mcg PO 0600 30 Days #30 tab Losartan [Cozaar] 100 mg PO DAILY #30 tab Metoprolol Succinate [Toprol XL] 50 mg PO ONCE #30 tab Warfarin [Coumadin] 4 mg PO DAILY #4 tab - Follow Up Plan Condition: GOOD Disposition: HOME/ ROUTINE Instructions: Heart Failure (DC), Heart Failure (GEN), Atrial Fibrillation (DC) , Pacemaker (DC), Pacemaker (GEN), Pulmonary Edema (DC), Pulmonary Edema (GEN), Ascites (DC), Ascites (GEN), Fall Prevention (DC), Edema (DC), Stroke (DC) Additional Instructions: 1) Patient to follow up with her PMD within the next week. 2) Patient to check INR within the next 3 days 3) Patient to take any medications as directed. 4) Patient to restrict Na intake to less than 2 grams per day. 5) Patient to return to the ED for any worsening of symptoms. Referrals: Boaz Green MD [Primary Care Provider] - Clinical Quality Measures - CQM - Heart Failure Ejection Fraction: Less Than 40 % Beta-Marisa Prescribed: Metoprolol Succinate Angiotensin II Receptor Marisa Prescribed: Yes AnticoagulationTherapy for Atrial Fibrillation/Atrialflutter: Yes Aldosterone Antagonist Prescribed: Yes Implantable Cardioverter Defibrillator Therapy: Yes Will be discharged to: Home Follow Up Date (must be within 7 days from discharge): 02/22/17 Follow Up Time: 14:45 - Date & Time of Discharge Summary Date of Discharge Summary: 02/10/17 Time of Discharge Summary: 14:22 <Marleny Man - Last Filed: 02/10/17 14:52> Provider - Provider Date of Admission: 02/02/17 18:54 Attending physician: Marleny Man MD Primary care physician: Boaz Green MD Hospital Course - Lab Results Lab Results: Most Recent Lab Values WBC 7.1 10^3/ul (4.5-11.0) 02/08/17 09:20 RBC 3.37 10^6/uL (3.5-6.1) L 02/08/17 09:20 Hgb 10.5 g/dL (12.0-16.0) L 02/08/17 09:20 Hct 32.7 % (36.0-48.0) L 02/08/17 09:20 MCV 97.0 fl (80.0-105.0) 02/08/17 09:20 MCH 31.2 pg (25.0-35.0) 02/08/17 09:20 MCHC 32.1 g/dl (31.0-37.0) 02/08/17 09:20 RDW 15.7 % (11.5-14.5) H 02/08/17 09:20 Plt Count 162 10^3/uL (120.0-450.0) 02/08/17 09:20 MPV 10.6 fl (7.0-11.0) 02/08/17 09:20 Gran % 59.7 % (50.0-68.0) 02/08/17 09:20 Lymph % (Auto) 27.1 % (22.0-35.0) 02/08/17 09:20 [place] % (Auto) 9.5 % (1.0-6.0) H 02/08/17 09:20 Eos % (Auto) 3.0 % (1.5-5.0) 02/08/17 09:20 Baso % (Auto) 0.7 % (0.0-3.0) 02/08/17 09:20 Gran # 4.22 (1.4-6.5) 02/08/17 09:20 Lymph # 1.9 (1.2-3.4) 02/08/17 09:20 [place] # 0.7 (0.1-0.6) H 02/08/17 09:20 Eos # 0.2 (0.0-0.7) 02/08/17 09:20 Baso # 0.05 K/mm3 (0.0-2.0) 02/08/17 09:20 PT 21.6 SECONDS (9.4-12.5) H 02/10/17 07:00 INR 1.94 (0.93-1.08) H 02/10/17 07:00 Sodium 132 mmol/L (132-148) 02/10/17 07:00 Potassium 4.8 mmol/L (3.6-5.0) 02/10/17 07:00 Chloride 97 mmol/L (98-107) L 02/10/17 07:00 Carbon Dioxide 25 mmol/L (21-33) 02/10/17 07:00 Anion Gap 15 (10-20) 02/10/17 07:00 BUN 30 mg/dL (7-21) H 02/10/17 07:00 Creatinine 1.5 mg/dl (0.7-1.2) H 02/10/17 07:00 Est GFR ( Amer) 40 02/10/17 07:00 Est GFR (Non-Af Amer) 33 02/10/17 07:00 Random Glucose 89 mg/dL (70-110) 02/10/17 07:00 Calcium 9.4 mg/dL (8.4-10.5) 02/10/17 07:00 Magnesium 1.8 mg/dL (1.7-2.2) 02/08/17 06:30 Total Bilirubin 1.6 mg/dL (0.2-1.3) H 02/10/17 07:00 AST 30 U/L (14-36) 02/10/17 07:00 ALT 26 U/L (7-56) 02/10/17 07:00 Alkaline Phosphatase 104 U/L (38-126) 02/10/17 07:00 Total Protein 7.2 g/dL (5.8-8.3) 02/10/17 07:00 Albumin 3.6 g/dL (3.0-4.8) 02/10/17 07:00 Globulin 3.6 gm/dL 02/10/17 07:00 Albumin/Globulin Ratio 1.0 (1.1-1.8) L 02/10/17 07:00 Attending/Attestation - Attestation I have personally seen and examined this patient.: Yes I have fully participated in the care of the patient.: Yes I have reviewed all pertinent clinical information, including history, physical exam and plan: Yes Notes (Text): 02/10/17 14:49 86 year old female with past medical history of cardiomyopathy, AICD/PPM, and hypothyroidism who was admitted for acute CHF exaceration. She was on milrinone infusion and started on iv lasix with improvement of symptoms. She was transferred to TCU for physical therapy. She was being followed by cardiology. Overall she is doing well. She is being discharged home today. Follow up with pmd and cardiology. Monitor creatinine and INR checks per pmd. Marleny Man MD Hospitalist.
== END 2017-02-10 12:59 | disposition home or self-care (01) | DRG 292 ==
LOC: TRCU 18:54
PROVIDERS: ADMIT Internal Medicine; ATTEND Internal Medicine
PROC: F07Z9FZ Gait Training/Functional Ambulation Treatment using Assistive, Adaptive, Supportive or Protective Equipment (ICD-10-PCS; principal; 2017-02-03)
PROC: F07 Physical Rehabilitation and Diagnostic Audiology, Rehabilitation, Motor Treatment (ICD-10-PCS; 2017-02-03)
PROC: F08Z4ZZ Home Management Treatment (ICD-10-PCS; 2017-02-03)
DX: I50.23 Acute on chronic systolic (congestive) heart failure (principal); I42.0 Dilated cardiomyopathy; N17.9 Acute kidney failure, unspecified; I27.20 Pulmonary hypertension, unspecified; I08.1 Rheumatic disorders of both mitral and tricuspid valves; E03.9 Hypothyroidism, unspecified; I48.0 Paroxysmal atrial fibrillation; Z86.73 Personal history of transient ischemic attack (TIA), and cerebral infarction without residual deficits; M10.9 Gout, unspecified; J44.9 Chronic obstructive pulmonary disease, unspecified; N18.9 Chronic kidney disease, unspecified; Z79.01 Long term (current) use of anticoagulants; Z79.899 Other long term (current) drug therapy; Z87.01 Personal history of pneumonia (recurrent); Z87.891 Personal history of nicotine dependence; Z90.49 Acquired absence of other specified parts of digestive tract

== ENCOUNTER 2017-03-01 14:54 | Inpatient (IN) | payer MEDICARE, OTHER ==
[2017-03-01 14:55] VITALS: BMI 29.8
--- NOTE | 2017-03-01 15:16 | ED PDOC ---
Arrival/HPI - General Chief Complaint: Shortness Of Breath Time Seen by Provider: 03/01/17 15:08 Historian: Patient, Family - History of Present Illness Narrative History of Present Illness (Text): 03/01/17 15:15 86yr old female with hx of chf on chronic milrinone drip presents today with with worsening lower leg swelling and increasing shortness of breath. pt c/o dyspnea on exertion. pt states that she noticed the swelling in the lower legs has been increasing and now spreading to the upper thighs. no fever/chills. denies cough. no vomiting/diarrhea. 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 Time/Duration: Other (2-3 days) Symptom Onset: Gradual Symptom Course: Worsening Past Medical History - Provider Review Nursing Documentation Reviewed: Yes - Travel History Have you recently traveled outside [place] w/in the past 3 mons?: No - Infectious Disease Hx of Infectious Diseases: None - Tetanus Immunization Tetanus Immunization: Unknown - Cardiac Hx Cardiac Arrhythmia: Yes Hx Congestive Heart Failure: Yes Hx Pacemaker: Yes Hx Peripheral Edema: Yes - Pulmonary Hx Respiratory Disorders: Yes (USED TO SMOKE CIGARETTES QUIT 25 YRS AGO.) Hx Chronic Obstructive Pulmonary Disease (COPD): Yes Hx Pneumonia: Yes - Neurological Hx Neurological Disorder: Yes HX Cerebrovascular Accident: Yes - HEENT Hx HEENT Disorder: Yes (eyeglasses) Hx Blind: No Hx Cataracts: Yes (r eye 01/24/13) - Renal Hx Renal Disorder: No - Endocrine/Metabolic Hx Hypothyroidism: Yes - Hematological/Oncological Hx Blood Disorders: No - Integumentary Hx Dermatological Disorder: Yes (b/l pedal edema) - Musculoskeletal/Rheumatological Hx Arthritis: Yes (Gout) - Gastrointestinal Hx Gastrointestinal Disorders: Yes (CHOLECYSTECTOMY,HERNIORHAPPHY) - Genitourinary/Gynecological Hx Genitourinary Disorders: No Hx Reproductive Disorders: No - Psychiatric Hx Emotional Abuse: No Hx Physical Abuse: No Hx Substance Use: No - Surgical History Hx Cholecystectomy: Yes Other/Comment: hammer toe surgery, laminectomy in 1990, had an abdominal hernia repair. pacemaker/defib in L chest wall. R chest wall port placement - Anesthesia Hx Anesthesia: Yes Hx Anesthesia Reactions: No Hx Malignant Hyperthermia: No - Suicidal Assessment Feels Threatened In Home Enviroment: No Family/Social History - Physician Review Nursing Documentation Reviewed: Yes Family/Social History: Unknown Family HX Smoking Status: Former Smoker Hx Alcohol Use: No Hx Substance Use: No Allergies/Home Meds Allergies/Adverse Reactions: Allergies codeine Allergy (Verified 03/01/17 15:05) SHORTNESS OF BREATH Penicillins Allergy (Verified 03/01/17 15:05) RASH Review of Systems - Review of Systems Constitutional: absent: Fatigue, Fevers ENT: absent: Sinus Congestion Respiratory: SOB, Other (IVY). absent: Cough Cardiovascular: absent: Chest Pain, Palpitations Gastrointestinal: absent: Abdominal Pain, Nausea, Vomiting Genitourinary Female: absent: Dysuria Musculoskeletal: Other (bilateral leg swelling) Skin: absent: Rash Neurological: absent: Headache, Dizziness Psychiatric: absent: Anxiety, Depression Physical Exam Vital Signs Reviewed: Yes Vital Signs Temp Pulse Resp BP Pulse Ox 03/01/17 20:05 69 18 131/68 97 03/01/17 18:52 70 126/64 03/01/17 18:42 70 126/64 03/01/17 16:51 72 18 129/60 97 03/01/17 16:50 129/60 03/01/17 15:58 20 97 03/01/17 15:18 97.5 F L 70 16 137/65 96 Temperature: Afebrile Blood Pressure: Normal Pulse: Regular Respiratory Rate: Normal Appearance: Positive for: Well-Appearing, Non-Toxic, Comfortable Pain Distress: None Mental Status: Positive for: Alert and Oriented X 3 - Systems Exam Head: Present: Atraumatic Mouth: Present: Moist Mucous Membranes Neck: Present: Normal Range of Motion Respiratory/Chest: Present: Good Air Exchange, Decreased Breath Sounds, Rales ( Bibasilar rales). No: Clear to Auscultation, Respiratory Distress, Accessory Muscle Use Cardiovascular: Present: Regular Rate and Rhythm, Murmurs Abdomen: No: Tenderness Back: Present: Normal Inspection. No: Midline Tenderness, Paraspinal Tenderness Upper Extremity: Present: Normal ROM Lower Extremity: Present: Edema, Neurovascularly Intact, Capillary Refill < 2 s Neurological: Present: GCS=15, Speech Normal Skin: Present: Warm, Dry Psychiatric: Present: Alert, Oriented x 3 Medical Decision Making ED Course and Treatment: 03/01/17 15:47 86-year-old female with CHF on milrinone drip complaining of dyspnea on exertion and bilateral lower leg swelling that has been worsening denies CP vitals are stable; pt speaking in full sentences. cbc WNL cmp: cr; 1.6 BNP:5140 cxr;FINDINGS: The right IJV line terminates at the cavoatrial junction. LUNGS: The lungs are well inflated. Again seen is pulmonary venous congestion and fluid in minor fissure. PLEURA: There are small bilateral pleural effusions, no pneumothorax apparent. CARDIOVASCULAR: There is persistent moderate cardiomegaly. There is stable position of a left- sided dual lead transvenous permanent pacing device. OSSEOUS STRUCTURES: Within normal limits for the patient's age. VISUALIZED UPPER ABDOMEN: Normal. OTHER FINDINGS: None. IMPRESSION: Mild congestive heart failure. ekg; electronic paced rhythm at 70 bpm 40mg lasix iv pt seen and evaluated by dr. vásquez 03/01/17 16:[address] Lopez; accepts tele obs for chf exacerbation. Impression: CHF observational status admission to tele. 03/01/17 17:[address] santiago; advised continue milrinone drip, and lasix. - Lab Interpretations Lab Results: 03/01/17 15:30 03/01/17 15:30 Lab Results 03/01/17 15:30: Lactate Dehydrogenase 804 H, Total Creatine Kinase 70, Troponin I 0.07 03/01/17 15:30: WBC 5.7, RBC 3.93, Hgb 11.8 L, Hct 36.6, MCV 93.1 D, MCH 30.0, MCHC 32.2, RDW 14.9 H, Plt Count 183, MPV 11.5 H, Gran % 66.9, Lymph % (Auto) 21.8 L, [place] % (Auto) 7.3 H, Eos % (Auto) 2.4, Baso % (Auto) 1.6, Gran # 3.84, Lymph # 1.3, [place] # 0.4, Eos # 0.1, Baso # 0.09 03/01/17 15:30: Sodium 136, Potassium 4.1, Chloride 99, Carbon Dioxide 25, Anion Gap 16, BUN 39 H, Creatinine 1.6 H, Est GFR ( Amer) 37, Est GFR ( Non-Af Amer) 31, Random Glucose 143 H, Calcium 9.6, Total Bilirubin 2.1 H, AST 40 H D, ALT 31, Alkaline Phosphatase 123, NT-Pro-B Natriuret Pep 5140 H, Total Protein 7.9, Albumin 3.8, Globulin 4.0, Albumin/Globulin Ratio 1.0 L, Lipase 34 03/01/17 15:30: PT 23.2 H, INR 2.10 H, APTT 34.1 - RAD Interpretation Radiology Orders: 03/01/17 15:10 CHEST PORTABLE [RAD] Stat - Medication Orders Current Medication Orders: Colchicine (Colocrys) 0.6 mg PO DAILY YAA Last Admin: 03/01/17 18:42 Dose: 0.6 mg Digoxin (Lanoxin) 0.125 mg PO 1400 YAA Furosemide (Lasix) 40 mg IVP Q12 YAA Milrinone Lactate/Dextrose (Primacor 20mg/100ml D5w) 100 mls @ 4.74 mls/hr IV .Q21H6M PRN; Protocol; 0.2 MCG/KG/MIN PRN Reason: TITRATE PER MD ORDER Last Admin: 03/01/17 18:52 Dose: 0.2 mcg/kg/min, 4.74 mls/hr eMAR Start Stop Document 03/01/17 18:52 EQ (Rec: 03/01/17 19:00 [id number]) Intravenous Solution Start Date 03/01/17 Start Time 18:52 MAR Pulse and Blood Pressure Document 03/01/17 18:52 EQ (Rec: 03/01/17 19:[address] [facility] [id number]) Pulse Pulse Rate (60-90 beats/min) 70 Blood Pressure Blood Pressure (100/60-150/90 mm Hg) 126/64 Titration Intervention Document 03/01/17 18:52 EQ (Rec: 03/01/17 19:[address] [facility] [place] [id number]) Titration Intake Waste Amount 0 Container Volume 100 Titration Dosing Titration Dose 0.2 IV Rate 4.74 Intake/Decrease Started Isosorbide Mononitrate (Imdur) 60 mg PO 0600 [facility] Levothyroxine Sodium (Synthroid) 112 mcg PO 0600 [facility] Losartan Potassium (Cozaar) 100 mg PO DAILY [facility] Metoprolol Succinate (Toprol Xl) 50 mg PO ONCE YAA Last Admin: 03/01/17 18:42 Dose: 50 mg MAR Pulse and Blood Pressure Document 03/01/17 18:42 EQ (Rec: 03/01/17 18:[address] [facility] [id number]) Pulse Pulse Rate (60-90 beats/min) 70 Blood Pressure Blood Pressure (100/60-150/90 mm Hg) 126/64 Pantoprazole Sodium (Protonix Inj) 40 mg IVP Q12 YAA Spironolactone (Aldactone) 25 mg PO ONCE YAA Last Admin: 03/01/17 18:42 Dose: 25 mg Warfarin Sodium (Coumadin) 4 mg PO 1800 YAA Last Admin: 03/01/17 18:42 Dose: 4 mg MAR aPTT Document 03/01/17 18:42 EQ (Rec: 03/01/17 18:47 EQ [facility] [id number]) aPTT aPTT (secs) 2.1 Discontinued Medications Furosemide (Lasix) 40 mg IVP STAT STA Stop: 03/01/17 16:28 Last Admin: 03/01/17 16:50 Dose: 40 mg MAR Blood Pressure Document 03/01/17 16:50 EQ (Rec: 03/01/17 16:50 EQ [facility] [id number]) Blood Pressure Blood Pressure (100/60-150/90 mm Hg) 129/60 IVP Administration Document 03/01/17 16:50 EQ (Rec: 03/01/17 16:50 EQ [facility] [id number]) Charges for Administration # of IVP Administrations 1 Warfarin Sodium (Coumadin) 4 mg PO ONCE ONE Stop: 03/01/17 18:46 Last Admin: 03/01/17 19:03 Dose: MAR aPTT Document 03/01/17 19:03 EQ (Rec: 03/01/17 19:03 EQ [facility] [id number]) aPTT aPTT (secs) 2.1 Disposition/Present on Arrival - Present on Arrival Any Indicators Present on Arrival: No History of DVT/PE: No History of Uncontrolled Diabetes: No Urinary Catheter: No History of Decub. Ulcer: No History Surgical Site Infection Following: None - Disposition Have Diagnosis and Disposition been Completed?: Yes Diagnosis: Congestive heart failure, Pedal edema Disposition: HOSPITALIZED Disposition Time: 16:30 Patient Plan: Observation Patient Problems: Current Active Problems Problem Status Onset Congestive heart failure Acute Pedal edema Acute Condition: FAIR
--- NOTE | 2017-03-01 16:00 | RAD ---
HISTORY: shortness of breath/leg edema COMPARISON: 01/31/2017. FINDINGS: The right IJV line terminates at the cavoatrial junction. LUNGS: The lungs are well inflated. Again seen is pulmonary venous congestion and fluid in minor fissure. PLEURA: There are small bilateral pleural effusions, no pneumothorax apparent. CARDIOVASCULAR: There is persistent moderate cardiomegaly. There is stable position of a left-sided dual lead transvenous permanent pacing device. OSSEOUS STRUCTURES: Within normal limits for the patient's age. VISUALIZED UPPER ABDOMEN: Normal. OTHER FINDINGS: None. IMPRESSION: Mild congestive heart failure.
[2017-03-01 16:03] LABS: BASO # 0.09 K/mm3 (0.0-2.0); BASO % 1.6 % (0.0-3.0); EOS # 0.1 (0.0-0.7); EOS % 2.4 % (1.5-5.0); GRAN # 3.84 (1.4-6.5); GRAN % 66.9 % (50.0-68.0); HEMOGLOBIN 11.8 g/dL (12.0-16.0); LYMPH # 1.3 (1.2-3.4); LYMPH % 21.8 % (22.0-35.0); MEAN CELL VOLUME 93.1 fl (80.0-105.0); MEAN CORPUSCULAR HGB CONC 32.2 g/dl (31.0-37.0); MEAN PLATELET VOLUME 11.5 fl (7.0-11.0); MONO # 0.4 (0.1-0.6); MONO % 7.3 % (1.0-6.0); RBC 3.93 10^6/uL (3.5-6.1); RED CELL DISTRIBUTION WIDTH 14.9 % (11.5-14.5); WHITE BLOOD COUNT 5.7 10^3/ul (4.5-11.0)
[2017-03-01 16:15] LABS: ALBUMIN 3.8 g/dL (3.0-4.8); CALCIUM 9.6 mg/dL (8.4-10.5)
[2017-03-01 16:18] LABS: INR 2.1 (0.93-1.08); PARTIAL THROMBOPLASTIN TIME 34.1 Seconds (25.1-36.5); PROTHROMBIN TIME 23.2 SECONDS (9.4-12.5)
[2017-03-01 17:33] LABS: TROPONIN I 0.07 ng/mL
--- NOTE | 2017-03-01 17:34 | CARD ---
APPROVED REPORT EKG Measurement Heart [id number] NE [id number] [id number] <Conclusion> Electronic ventricular pacemaker
--- NOTE | 2017-03-01 17:48 | CP.PCM.HP ---
<Delicia Burciaga - Last Filed: 03/01/17 17:40> History of Present Illness - History of Present Illness History of Present Illness: Delicia Burciaga, PGY1, H&P for Dr Lopez: CC: worsening lower extremity swelling 86yr old female with hx of chf (EF 8% on 03/2016) on chronic milrinone drip, AICD, afib on Coumadin, hypothyroidism, gout, [place] [facility] [place], presents for worsening lower extremity edema for past 1 week. Pt was recent [place] [facility] [place] for same complaint. Pt states that she is also sob with mild exertion, like walking around house, but that is her baseline. Pt states that her lower extremity swelling now extends to her bilateral knees. Denies swelling, increased warmth or tenderness to the area. Denies fever, chills, n/v, abdominal pain, cough, urinary symptoms. Pt called Dr alcantara this evening for her LE swelling and was told to come here. In ED, pt afebrile, hemodynamically stable, bibasilar crackles on lung exam, bnp 5140 (prev 5540), therapeutic INR, mild elevation in AST 40, Cr 1.6 ( baseline 1.4). CXR shows midl vascular congestion, EKG shows HR 70, electronic paced rhythm. Given Lasix 40 mg iV x1. Explained to pt, daughter and sister at bedside regarding resuscitation status, and pt states that she would like to be DNR/DNI. 12 point ROS obtained and neg as per HPI PMH: Systolic Heart Failure w/ ICD placement, Atrial Fibrillation, Hypothyroidism, Gout PSH: Laminectomy, Cholecystectomy, Hernia Repair FH: non-contributory Allergies: codeine, penicillins Social hx: former smoker, quit 1990. Denies alcohol or illicit drug use Medications: As per MAR PMD: Dr. Green Drapery Worker: Dr. Alcantara Present on Admission - Present on Admission Any Indicators Present on Admission: No History of DVT/PE: No History of Uncontrolled Diabetes: No Urinary Catheter: No Decubitus Ulcer Present: No Review of Systems - Review of Systems All systems: reviewed and no additional remarkable complaints except Review of Systems: as per HPI Past Patient History - Infectious Disease Hx of Infectious Diseases: None - Tetanus Immunizations Tetanus Immunization: Unknown - Past Medical History & Family History Past Medical History?: Yes - Past Social History Smoking Status: Former Smoker - CARDIAC Hx Cardia Arrhythmia: Yes Hx Congestive Heart Failure: Yes Hx Pacemaker: Yes Hx Peripheral Edema: Yes - PULMONARY Hx Respiratory Disorders: Yes (USED TO SMOKE CIGARETTES QUIT 25 YRS AGO.) Hx Chronic Obstructive Pulmonary Disease (COPD): Yes Hx Pneumonia: Yes - NEUROLOGICAL Hx Neurological Disorder: Yes HX Cerebrovascular Accident: Yes - HEENT Hx HEENT Problems: Yes (eyeglasses) Hx Blind: No Hx Cataracts: Yes (r eye 01/24/13) - RENAL Hx Chronic Kidney Disease: No - ENDOCRINE/METABOLIC Hx Hypothyroidism: Yes - HEMATOLOGICAL/ONCOLOGICAL Hx Blood Disorders: No - INTEGUMENTARY Hx Dermatological Problems: Yes (b/l pedal edema) - MUSCULOSKELETAL/RHEUMATOLOGICAL Hx Arthritis: Yes (Gout) - GASTROINTESTINAL Hx Gastrointestinal Disorders: Yes (CHOLECYSTECTOMY,HERNIORHAPPHY) - GENITOURINARY/GYNECOLOGICAL Hx Genitourinary Disorders: No Hx Reproductive Disorders: No - PSYCHIATRIC Hx Emotional Abuse: No Hx Physical Abuse: No Hx Substance Use: No - SURGICAL HISTORY Hx Cholecystectomy: Yes Other/Comment: hammer toe surgery, laminectomy in 1990, had an abdominal hernia repair. pacemaker/defib in L chest wall. R chest wall port placement - ANESTHESIA Hx Anesthesia: Yes Hx Anesthesia Reactions: No Hx Malignant Hyperthermia: No Meds Allergies/Adverse Reactions: Allergies Allergy/AdvReac Type Severity Reaction Status Date / Time codeine Allergy SHORTNESS Verified 03/01/17 15:05 OF BREATH Penicillins Allergy RASH Verified 03/01/17 15:05 Physical Exam - Constitutional Appears: Non-toxic, Older Than Stated Age, Chronically Ill - Head Exam Head Exam: ATRAUMATIC, NORMOCEPHALIC - Eye Exam Eye Exam: EOMI, PERRL. absent: Conjunctival injection, Scleral icterus Pupil Exam: NORMAL ACCOMODATION, PERRL - ENT Exam ENT Exam: Mucous Membranes Moist - Neck Exam Neck exam: Negative for: Lymphadenopathy, Tenderness, Thyromegaly Additional comments: + JVD - Respiratory Exam Respiratory Exam: absent: Accessory Muscle Use, Respiratory Distress Additional comments: + bibasilar crackles - Cardiovascular Exam Cardiovascular Exam: +S1, +S2 Additional comments: paced - GI/Abdominal Exam GI & Abdominal Exam: Normal Bowel Sounds, Soft. absent: Distended, Guarding, Mass, Organomegaly, Rebound, Rigid, Tenderness - Extremities Exam Extremities exam: Positive for: pedal edema, pedal pulses present. Negative for : calf tenderness Additional comments: + DP pulses, 1+ due to overlying edema 3+ edema b/l extending to below the knee - Back Exam Back exam: NORMAL INSPECTION - Neurological Exam Neurological exam: Alert, Oriented x3 - Psychiatric Exam Psychiatric exam: Normal Affect, Normal Mood - Skin Skin Exam: Dry, Normal Color, Warm Results - Vital Signs Recent Vital Signs: Last Vital Signs Temp 97.5 F L 03/01/17 15:18 Pulse 72 03/01/17 16:51 Resp 18 03/01/17 16:51 BP 129/60 03/01/17 16:51 Pulse Ox 97 03/01/17 16:51 - Labs Result Diagrams: 03/01/17 15:30 03/01/17 15:30 Assessment & Plan - Assessment and Plan (Free Text) Assessment: 86 y/o F with PMH of CHF with EF of 8% and ICD placement on chronic IV milrinone therapy (for past 2.5 years), A-fib on Coumadin, hypothyroidism, and gout admitted for worsening of lower extremity edema: Worsening LE edema: 2/2 likely CHF exacerbation - F/u UA - Received 40 mg IV lasix in ED. - Last echo 03/2016 showed EF 8%. Severe MR/TR. four chamber enlargement, severe lv systolic dysfxn - cont home IV milrinone, BB, ARB, DIgoxin, Coazaar, Aldactone - Strict I&Os - Daily weights - Fluid restriction - HHD, 2 gm Na, <1200 ml fluids - Cont to monitor leg swelling and lung exam. Elevated Cr: 2/2 likely CKD - baseline Cr 1.3-1.4 - Cont to monitor - Avoid nephrotoxic drugs/contrast A-fib: Rate controlled C/w Warfarin 4 mg daily INR daily Hypothyroidism: Continue Synthroid Gout: Continue Colchicine PPX Warfarin Protonix Discussed with Dr Jessica Burciaga, PGY1 - Date & Time Date: 03/01/17 Time: 18:01 <Eloise Lopez - Last Filed: 03/02/17 13:38> Results - Vital Signs Recent Vital Signs: Last Vital Signs Temp 98.4 F 03/02/17 12:00 Pulse 71 03/02/17 12:00 Resp 19 03/02/17 12:00 BP 106/63 03/02/17 12:00 Pulse Ox 99 03/02/17 06:00 - Labs Result Diagrams: 03/02/17 06:00 03/02/17 06:00 Labs: Laboratory Results - last 24 hr 03/01/17 03/01/17 03/02/17 19:57 20:50 02:30 WBC RBC Hgb Hct MCV MCH MCHC RDW Plt Count MPV Gran % Lymph % (Auto) [place] % (Auto) Eos % (Auto) Baso % (Auto) Gran # Lymph # [place] # Eos # Baso # PT INR APTT Sodium Potassium Chloride Carbon Dioxide Anion Gap BUN Creatinine Est GFR ( Amer) Est GFR (Non-Af Amer) Random Glucose Calcium Phosphorus Magnesium Total Bilirubin AST ALT Alkaline Phosphatase Troponin I 0.06 0.07 Total Protein Albumin Globulin Albumin/Globulin Ratio Urine Color Yellow Urine Appearance Clear Urine pH 6.0 Ur Specific [place] 1.010 Urine Protein Negative Urine Glucose (UA) Negative Urine Ketones Negative Urine Blood Negative Urine Nitrate Negative Urine Bilirubin Negative Urine Urobilinogen 0.2 Ur Leukocyte Esterase Negative 03/02/17 03/02/17 03/02/17 06:00 06:00 06:00 WBC 6.0 RBC 3.56 Hgb 10.5 L Hct 33.1 L MCV 93.0 MCH 29.5 MCHC 31.7 RDW 15.0 H Plt Count 163 MPV 11.5 H Gran % 61.6 Lymph % (Auto) 25.7 [place] % (Auto) 8.6 H Eos % (Auto) 2.8 Baso % (Auto) 1.3 Gran # 3.72 Lymph # 1.6 [place] # 0.5 Eos # 0.2 Baso # 0.08 PT 24.8 H INR 2.22 H APTT 129.1 H* Sodium 136 Potassium 3.8 Chloride 99 Carbon Dioxide 27 Anion Gap 14 BUN 40 H Creatinine 1.6 H Est GFR ( Amer) 37 Est GFR (Non-Af Amer) 31 Random Glucose 100 Calcium 9.0 Phosphorus 3.7 Magnesium 1.7 Total Bilirubin 1.3 AST 30 ALT 29 Alkaline Phosphatase 114 Troponin I Total Protein 6.9 Albumin 3.3 Globulin 3.6 Albumin/Globulin Ratio 0.9 L Urine Color Urine Appearance Urine pH Ur Specific [place] Urine Protein Urine Glucose (UA) Urine Ketones Urine Blood Urine Nitrate Urine Bilirubin Urine Urobilinogen Ur Leukocyte Esterase 03/02/17 09:10 WBC RBC Hgb Hct MCV MCH MCHC RDW Plt Count MPV Gran % Lymph % (Auto) [place] % (Auto) Eos % (Auto) Baso % (Auto) Gran # Lymph # [place] # Eos # Baso # PT 23.7 H INR 2.12 H APTT 35.9 Sodium Potassium Chloride Carbon Dioxide Anion Gap BUN Creatinine Est GFR ( Amer) Est GFR (Non-Af Amer) Random Glucose Calcium Phosphorus Magnesium Total Bilirubin AST ALT Alkaline Phosphatase Troponin I Total Protein Albumin Globulin Albumin/Globulin Ratio Urine Color Urine Appearance Urine pH Ur Specific [place] Urine Protein Urine Glucose (UA) Urine Ketones Urine Blood Urine Nitrate Urine Bilirubin Urine Urobilinogen Ur Leukocyte Esterase Attending/Attestation - Attestation I have personally seen and examined this patient.: Yes I have fully participated in the care of the patient.: Yes I have reviewed all pertinent clinical information: Yes Notes (Text): 03/02/17 13:30 Patient was seen and examined with medical photographer. Family is at bed side. 86 year old female with a past medical history of systolic heart failure EF 8-10%,SP AICD , atrial fibrillation on anticogulation with warfarin and hypothyroidism is admitted with acute on chronic systolic CHF, Agreed with IV lasix, we will monitor BUN and creatinin. We will continue Milrinone infusion. Patient INR is therapeutic warfarin with current dose . Patient is DNR and DNI. Prognosis is guarded. Management plan was discussed in detail with patient Education was provided.
[2017-03-01] MEDS: Metoprolol Succinate 50 mg XL Tab PO SCH (18:42)
[2017-03-01] MEDS: Milrinone 20mg/100ml D5W 100 ML IV PRN (18:52)
[2017-03-01 21:24] LABS: URINE BILIRUBIN NEGATIVE (NEGATIVE); URINE BLOOD NEGATIVE (NEGATIVE); URINE GLUCOSE (UA) NEGATIVE (NEGATIVE); URINE LEUKOCYTE ESTERASE NEGATIVE Leu/uL (NEGATIVE); URINE NITRATE NEGATIVE (NEGATIVE); URINE PROTEIN NEGATIVE mg/dL (<30 mg/dL); URINE UROBILINOGEN 0.2 E.U./dL (<1 E.U./dL)
[2017-03-01 21:25] LABS: URINE APPEARANCE CLEAR (CLEAR); URINE COLOR YELLOW (YELLOW)
[2017-03-02] MEDS: Levothyroxine 112 MCG TAB PO SCH (05:17)
[2017-03-02 06:13] LABS: BASO # 0.08 K/mm3 (0.0-2.0); BASO % 1.3 % (0.0-3.0); EOS # 0.2 (0.0-0.7); EOS % 2.8 % (1.5-5.0); GRAN # 3.72 (1.4-6.5); GRAN % 61.6 % (50.0-68.0); HEMOGLOBIN 10.5 g/dL (12.0-16.0); LYMPH # 1.6 (1.2-3.4); LYMPH % 25.7 % (22.0-35.0); MEAN CORPUSCULAR HEMOGLOBIN 29.5 pg (25.0-35.0); MEAN CORPUSCULAR HGB CONC 31.7 g/dl (31.0-37.0); MEAN PLATELET VOLUME 11.5 fl (7.0-11.0); MONO # 0.5 (0.1-0.6); MONO % 8.6 % (1.0-6.0); RBC 3.56 10^6/uL (3.5-6.1)
[2017-03-02 06:32] LABS: INR 2.22 (0.93-1.08); PROTHROMBIN TIME 24.8 SECONDS (9.4-12.5)
[2017-03-02 06:43] LABS: PARTIAL THROMBOPLASTIN TIME 129.1 Seconds (25.1-36.5)
[2017-03-02 07:39] LABS: ALB/GLOB RATIO 0.9 (1.1-1.8); ALBUMIN 3.3 g/dL (3.0-4.8); MAGNESIUM 1.7 mg/dL (1.7-2.2)
[2017-03-02 10:11] LABS: INR 2.12 (0.93-1.08); PARTIAL THROMBOPLASTIN TIME 35.9 Seconds (25.1-36.5); PROTHROMBIN TIME 23.7 SECONDS (9.4-12.5)
--- NOTE | 2017-03-02 13:16 | CP.PCM.PN ---
<Delicia Burciaga - Last Filed: 03/02/17 13:12> Subjective - Date & Time of Evaluation Date of Evaluation: 03/02/17 Time of Evaluation: 13:13 - Subjective Subjective: Delicia Burciaga, PGY1, Medicine Progress Note for Dr Lopez: Patient seen and examined at bedside. Patient was mildly more SOB overnight, and was put on 2 L NC, felt better and saturating well. No acute events. states that her leg swelling is mildly improving with diuresis, denies cp, sob, palpitations, diaphoresis, fever, chills, cough, abdominal pain, urniary complaints. Objective - Vital Signs/Intake and Output Vital Signs (last 24 hours): Temp Pulse Resp BP Pulse Ox 98.4 F 71 19 106/63 99 03/02/17 12:00 03/02/17 12:00 03/02/17 12:00 03/02/17 12:00 03/02/17 06:00 Intake and Output: 03/02/17 03/02/17 06:59 18:59 Intake Total 172 Output Total 1200 Balance -1028 - Medications Medications: Current Medications Colchicine (Colocrys) 0.6 mg PO DAILY [facility] Last Admin: 03/02/17 10:03 Dose: 0.6 mg Digoxin (Lanoxin) 0.125 mg PO 1400 [facility] Furosemide (Lasix) 40 mg IVP Q12 [facility] Last Admin: 03/02/17 10:03 Dose: 40 mg Milrinone Lactate/Dextrose (Primacor 20mg/100ml D5w) 100 mls @ 4.74 mls/hr IV .Q21H6M PRN; Protocol; 0.2 MCG/KG/MIN PRN Reason: TITRATE PER MD ORDER Last Admin: 03/01/17 18:52 Dose: 0.2 mcg/kg/min, 4.74 mls/hr Isosorbide Mononitrate (Imdur) 60 mg PO 0600 [facility] Last Admin: 03/02/17 05:17 Dose: 60 mg Levothyroxine Sodium (Synthroid) 112 mcg PO 0600 [facility] Last Admin: 03/02/17 05:17 Dose: 112 mcg Losartan Potassium (Cozaar) 100 mg PO DAILY [facility] Last Admin: 03/02/17 10:03 Dose: 100 mg Metoprolol Succinate (Toprol Xl) 50 mg PO ONCE [facility] Last Admin: 12/26/17 18:42 Dose: 50 mg Pantoprazole Sodium (Protonix Inj) 40 mg IVP Q12 [facility] Last Admin: 03/02/17 10:02 Dose: 40 mg Spironolactone (Aldactone) 25 mg PO ONCE [facility] Last Admin: 03/01/17 18:42 Dose: 25 mg Warfarin Sodium (Coumadin) 4 mg PO 1800 [facility] Last Admin: 03/01/17 18:42 Dose: 4 mg - Labs Labs: 03/02/17 06:00 03/02/17 06:00 PT 23.7 SECONDS (9.4-12.5) H 03/02/17 09:10 INR 2.12 (0.93-1.08) H 03/02/17 09:10 APTT 35.9 Seconds (25.1-36.5) 03/02/17 09:10 - Additional Findings Additional findings: - Constitutional Appears: Non-toxic, Older Than Stated Age, Chronically Ill - Head Exam Head Exam: ATRAUMATIC, NORMOCEPHALIC - Eye Exam Eye Exam: EOMI, PERRL. absent: Conjunctival injection, Scleral icterus Pupil Exam: NORMAL ACCOMODATION, PERRL - ENT Exam ENT Exam: Mucous Membranes Moist - Neck Exam Neck exam: Negative for: Lymphadenopathy, Tenderness, Thyromegaly Additional comments: + JVD - Respiratory Exam Respiratory Exam: absent: Accessory Muscle Use, Respiratory Distress Additional comments: + bibasilar crackles, improved since yesterday - Cardiovascular Exam Cardiovascular Exam: +S1, +S2 Additional comments: paced - GI/Abdominal Exam GI & Abdominal Exam: Normal Bowel Sounds, Soft. absent: Distended, Guarding, Mass, Organomegaly, Rebound, Rigid, Tenderness - Extremities Exam Extremities exam: Positive for: pedal edema, pedal pulses present. Negative for : calf tenderness Additional comments: + DP pulses, 2-3+ edema b/l extending to below the knee, MARLEEN stockings on - Back Exam Back exam: NORMAL INSPECTION - Neurological Exam Neurological exam: Alert, Oriented x3 - Psychiatric Exam Psychiatric exam: Normal Affect, Normal Mood - Skin Skin Exam: Dry, Normal Color, Warm Assessment and Plan - Assessment and Plan (Free Text) Assessment: 86 y/o F with PMH of CHF with EF of 8% and AICD placement on chronic IV milrinone therapy (for past 2.5 years), A-fib on Coumadin, hypothyroidism, and gout admitted for worsening of lower extremity edema: Worsening LE edema: 2/2 likely CHF exacerbation - UA neg for infection, trops 0.06->0.06->0.07 (same as prev admissions). - Received 40 mg IV lasix in ED. - Last echo 03/2016 showed EF 8%. Severe MR/TR. four chamber enlargement, severe lv systolic dysfxn - cont home IV milrinone, BB, ARB, DIgoxin, Coazaar, Aldactone - Strict I&Os - Daily weights - Fluid restriction - HHD, 2 gm Na, <1200 ml fluids - UO 1200 ml for past 12 hours. - will taper down on IV lasix to 20 mg IV BID - Cardio consulted Dr Alcantara. F/u recs. - Cont to monitor leg swelling and lung exam. Elevated Cr: 2/2 likely CKD - baseline Cr 1.3-1.4 - Cont to monitor - Avoid nephrotoxic drugs/contrast A-fib: Rate controlled C/w Warfarin 4 mg daily Therapeutic today INR daily Hypothyroidism: Continue Synthroid Gout: Continue Colchicine PPX Warfarin Protonix Discussed with Dr Jessica Burciaga, PGY1 <Eloise Lopez - Last Filed: 03/02/17 13:39> Objective - Vital Signs/Intake and Output Vital Signs (last 24 hours): Temp Pulse Resp BP Pulse Ox 98.4 F 71 19 106/63 99 03/02/17 12:00 03/02/17 12:00 03/02/17 12:00 03/02/17 12:00 03/02/17 06:00 Intake and Output: 03/02/17 03/02/17 06:59 18:59 Intake Total 172 Output Total 1200 Balance -1028 - Medications Medications: Current Medications Colchicine (Colocrys) 0.6 mg PO DAILY [facility] Last Admin: 03/02/17 10:03 Dose: 0.6 mg Digoxin (Lanoxin) 0.125 mg PO 1400 [facility] Furosemide (Lasix) 20 mg IVP Q12 [facility] Milrinone Lactate/Dextrose (Primacor 20mg/100ml D5w) 100 mls @ 4.74 mls/hr IV .Q21H6M PRN; Protocol; 0.2 MCG/KG/MIN PRN Reason: TITRATE PER MD ORDER Last Admin: 03/01/17 18:52 Dose: 0.2 mcg/kg/min, 4.74 mls/hr Isosorbide Mononitrate (Imdur) 60 mg PO 0600 [facility] Last Admin: 03/02/17 05:17 Dose: 60 mg Levothyroxine Sodium (Synthroid) 112 mcg PO 0600 [facility] Last Admin: 03/02/17 05:17 Dose: 112 mcg Losartan Potassium (Cozaar) 100 mg PO DAILY [facility] Last Admin: 03/02/17 10:03 Dose: 100 mg Metoprolol Succinate (Toprol Xl) 50 mg PO ONCE [facility] Last Admin: 03/01/17 18:42 Dose: 50 mg Pantoprazole Sodium (Protonix Inj) 40 mg IVP Q12 [facility] Last Admin: 03/02/17 10:02 Dose: 40 mg Spironolactone (Aldactone) 25 mg PO ONCE [facility] Last Admin: 03/01/17 18:42 Dose: 25 mg Warfarin Sodium (Coumadin) 4 mg PO 1800 [facility] Last Admin: 03/01/17 18:42 Dose: 4 mg - Labs Labs: 03/02/17 06:00 03/02/17 06:00 PT 23.7 SECONDS (9.4-12.5) H 03/02/17 09:10 INR 2.12 (0.93-1.08) H 03/02/17 09:10 APTT 35.9 Seconds (25.1-36.5) 03/02/17 09:10 Attending/Attestation - Attestation I have personally seen and examined this patient.: Yes I have fully participated in the care of the patient.: Yes I have reviewed all pertinent clinical information, including history, physical exam and plan: Yes Notes (Text): 03/02/17 13:38 Patient was seen and examined with medical technologist blood bank. 86 year old female with a past medical history of systolic heart failure EF 8-10%,SP AICD , atrial fibrillation on anticogulation with warfarin and hypothyroidism was admitted with acute on chronic systolic CHF, improvinf with IV lasix, Creatinin is stable. Patient INR is therapeutic warfarin with current dose . Patient is DNR and DNI. Prognosis is guarded. Management plan was discussed in detail with patient Education was provided.
[2017-03-02] MEDS: Milrinone 20mg/100ml D5W 100 ML IV PRN (13:52)
[2017-03-02] MEDS: Digoxin 125 mcg (0.125 mg) Tab PO SCH (13:53)
[2017-03-02] MEDS: Metoprolol Succinate 50 mg XL Tab PO SCH (22:02)
[2017-03-02] MEDS: Pantoprazole 40 mg EC Tab PO SCH (22:25)
[2017-03-03] MEDS: Levothyroxine 112 MCG TAB PO SCH (05:36)
[2017-03-03 06:32] LABS: BASO # 0.04 K/mm3 (0.0-2.0); BASO % 0.7 % (0.0-3.0); EOS # 0.2 (0.0-0.7); EOS % 3.7 % (1.5-5.0); GRAN # 3.49 (1.4-6.5); GRAN % 57.9 % (50.0-68.0); HEMOGLOBIN 10.2 g/dL (12.0-16.0); LYMPH # 1.6 (1.2-3.4); LYMPH % 27.1 % (22.0-35.0); MEAN CELL VOLUME 93.2 fl (80.0-105.0); MEAN CORPUSCULAR HGB CONC 32.2 g/dl (31.0-37.0); MEAN PLATELET VOLUME 10.8 fl (7.0-11.0); MONO # 0.6 (0.1-0.6); MONO % 10.6 % (1.0-6.0); RBC 3.4 10^6/uL (3.5-6.1); RED CELL DISTRIBUTION WIDTH 15.2 % (11.5-14.5)
[2017-03-03 06:40] LABS: INR 1.95 (0.93-1.08); PROTHROMBIN TIME 21.8 SECONDS (9.4-12.5)
[2017-03-03 06:41] LABS: ALB/GLOB RATIO 0.9 (1.1-1.8); ALBUMIN 3.3 g/dL (3.0-4.8); CALCIUM 8.9 mg/dL (8.4-10.5); MAGNESIUM 1.6 mg/dL (1.7-2.2)
[2017-03-03] MEDS ORDERED: Magnesium Sulfate 2 GM in Sodium Chloride 0.9% 100 ML IVPB ONE (07:36)
[2017-03-03] MEDS ORDERED: Potassium Chloride 20 mEq ER Tab PO SCH (08:00)
[2017-03-03] MEDS: Milrinone 20mg/100ml D5W 100 ML IV PRN (10:17)
[2017-03-03] MEDS: Potassium Chloride 10 mEq ER Tab PO SCH ×2 (10:20→17:27)
[2017-03-03] MEDS: Pantoprazole 40 mg EC Tab PO SCH ×2 (10:20→21:11)
--- NOTE | 2017-03-03 10:25 | CON ---
DATE: 03/03/2017 INDICATIONS: Shortness of breath and congestive heart failure. 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 She was admitted to telemetry. She has been treated with IV Lasix and she has improved. There was no chest pain. There was some orthopnea. There was no syncope, palpitations, dizziness, vertigo, fever, chills, cough, sputum production, hemoptysis, abdominal pain, nausea, vomiting, diarrhea, constipation, or melena. PAST MEDICAL HISTORY: Her past medical history is complex. She has a known severe cardiomyopathy with class IV congestive heart failure, on home milrinone therapy and several recent [facility] admissions for similar symptoms. She has paroxysmal atrial fibrillation. She has a defibrillator. There is a history of stroke, gout, hypothyroidism. Gallbladder, back and hernia surgery. Echocardiography fairly recently has shown severe LV dysfunction with severe MR, TR, and pulmonary hypertension. MEDICATIONS: At the time of admission were Aldactone, colchicine, warfarin, losartan, isosorbide, digoxin, Lasix, milrinone infusion, Synthroid and metoprolol. ALLERGIES: SHE NOTES ALLERGIES TO CODEINE AND PENICILLINS. FAMILY HISTORY: Noncontributory. SOCIAL HISTORY: She lives in a home with assistance of her family. She is a former smoker. She does not drink alcohol. She is ambulatory, but very limited. REVIEW OF SYSTEMS: A 10-point review of systems otherwise unremarkable except as noted above. PHYSICAL EXAMINATION: GENERAL: She is a well-developed elderly woman lying in bed on telemetry, in no acute distress. She is afebrile. She has ventricular pacing. VITAL SIGNS: Blood pressure 126/62, respirations 18 to 19, O2 saturation 99% on nasal cannula. HEENT: Reveals no neck vein distention, thyromegaly or carotid bruits. Mucous membrane is moist. Conjunctivae are pink. NECK: Supple. LUNGS: Scattered rales. HEART: Revealed normal first and second heart sounds. PMI is laterally displaced. ABDOMEN: Soft. Bowel sounds are present. No mass, organomegaly, tenderness, rebound, guarding, CVA tenderness, or palpable abdominal aortic aneurysm. EXTREMITIES: Reveals significant lower extremity edema still present. NEUROLOGIC: Awake, alert, and oriented. PSYCHIATRIC: Normal mood and affect. SKIN: Warm and dry. No rash or cellulitis. LABORATORY AND IMAGING: A portable chest x-ray revealed mild congestive heart failure. EKG demonstrates ventricular pacing. White count is normal. Hemoglobin 10.2, hematocrit 31.7, and platelet counts are normal. PT/INR consistent with warfarin therapy today 21.8 and 1.95 respectively. PTT is 32. Electrolytes today unremarkable except for potassium of 3.3, BUN 34, creatinine 1.4, LFTs unremarkable. Magnesium 1.6. Troponin were negative. Lipase was negative. 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 PLAN: I agree with current plans. She is on telemetry. She is getting IV Lasix q. 12 hours. I would continue milrinone infusion and her other cardiac medications including spironolactone, warfarin, Losartan, isosorbide, potassium replacement, digoxin, magnesium replacement, and metoprolol. She can be out of bed to chair. Potassium is being replaced. We will monitor labs, I and O. We will check stool for occult blood. We will review her old records and echocardiogram. I will increase milrinone to 2.5 mcg. I will follow along with you. I will make additional recommendations based on her clinical course. Juan Jose Alcantara MD MTDD
--- NOTE | 2017-03-03 11:15 | CP.PCM.CON ---
History of Present Illness - History of Present Illness History of Present Illness: Palliative consult requested by Dr Rosio Sparks Reason: Goals of care/advance care planning 86 kaela old female with history CHF, LV dysfunction, milrinone drip at home who presented with worsening edema of lower extremities and increasing shortness of breath/dyspnea on exertion. Denied chest pain,fever chills,nausea, vomiting, diarrhea. Chest x ray showed mild congestive disease. Labs; HGB 10.8, BUN. 108, Creat. 1.6, LDH 804, Bili. 2.1 AST. 40, BNP 5140. PMHx: CAD, CHF, ICD,cardiomyopthy, milrinone drip,atrial fibrillation, hypothyroidism, gout, s/p hernia repair. Social History: Former smoker, no alcohol or drug use.Lives independently. Family History: Non contributory. Advance Care Planning: The patient does not have an Advanced Directive. She is DNR/DNI. Review of Systems: As per HPI, 12 point review otherwise negative. Past Patient History - Infectious Disease Hx of Infectious Diseases: None - Tetanus Immunizations Tetanus Immunization: Unknown - Past Medical History & Family History Past Medical History?: Yes - Past Social History Smoking Status: Former Smoker - CARDIAC Hx Cardiac Disorders: Yes Hx Cardia Arrhythmia: Yes Hx Congestive Heart Failure: Yes Hx Hypercholesterolemia: Yes Hx Hypertension: Yes - PULMONARY Hx Chronic Obstructive Pulmonary Disease (COPD): Yes - NEUROLOGICAL HX Cerebrovascular Accident: Yes - HEENT Hx Cataracts: Yes - RENAL Hx Chronic Kidney Disease: No - ENDOCRINE/METABOLIC Hx Hypothyroidism: Yes - HEMATOLOGICAL/ONCOLOGICAL Hx Blood Disorders: No - INTEGUMENTARY Hx Dermatological Problems: Yes (b/l pedal edema) - MUSCULOSKELETAL/RHEUMATOLOGICAL Hx Arthritis: Yes Hx Falls: Yes Hx Gout: Yes - GASTROINTESTINAL Hx Gastrointestinal Disorders: Yes (CHOLECYSTECTOMY,HERNIORHAPPHY) - GENITOURINARY/GYNECOLOGICAL Hx Genitourinary Disorders: No Hx Reproductive Disorders: No - PSYCHIATRIC Hx Substance Use: No - SURGICAL HISTORY Hx Cholecystectomy: Yes - ANESTHESIA Hx Anesthesia: Yes Hx Anesthesia Reactions: No Hx Malignant Hyperthermia: No Meds Allergies/Adverse Reactions: Allergies Allergy/AdvReac Type Severity Reaction Status Date / Time codeine Allergy SHORTNESS Verified 03/01/17 15:05 OF BREATH Penicillins Allergy RASH Verified 03/01/17 15:05 - Medications Medications: Current Medications Colchicine (Colocrys) 0.6 mg PO DAILY [facility] Last Admin: 03/03/17 10:20 Dose: 0.6 mg Digoxin (Lanoxin) 0.125 mg PO 1400 [facility] Last Admin: 03/02/17 13:53 Dose: 0.125 mg Furosemide (Lasix) 20 mg IVP Q12 [facility] Last Admin: 03/03/17 10:20 Dose: 20 mg Milrinone Lactate/Dextrose (Primacor 20mg/100ml D5w) 100 mls @ 5.925 mls/hr IV .[id number] PRN; Protocol; 0.25 MCG/KG/MIN PRN Reason: TITRATE PER MD ORDER Last Admin: 03/03/17 10:17 Dose: 0.25 mcg/kg/min, 5.925 mls/hr Isosorbide Mononitrate (Imdur) 60 mg PO 0600 [facility] Last Admin: 03/03/17 05:36 Dose: 60 mg Levothyroxine Sodium (Synthroid) 112 mcg PO 0600 [facility] Last Admin: 03/03/17 05:36 Dose: 112 mcg Losartan Potassium (Cozaar) 100 mg PO DAILY [facility] Last Admin: 03/03/17 10:20 Dose: 100 mg Magnesium Oxide (Mag-Ox) 400 mg PO DAILY [facility] Stop: 03/03/17 14:01 Metoprolol Succinate (Toprol Xl) 50 mg PO ONCE [facility] Last Admin: 03/02/17 22:02 Dose: Not Given Pantoprazole Sodium (Protonix Ec Tab) 40 mg PO Q12 [facility] Last Admin: 03/03/17 10:20 Dose: 40 mg Potassium Chloride (Klor-Con 10) 30 meq PO BID [facility] Last Admin: 03/03/17 10:20 Dose: 30 meq Spironolactone (Aldactone) 25 mg PO ONCE [facility] Last Admin: 03/02/17 22:01 Dose: Not Given Warfarin Sodium (Coumadin) 4 mg PO 1800 [facility] Last Admin: 03/02/17 18:50 Dose: 4 mg Physical Exam - Constitutional Appears: Chronically Ill - Head Exam Head Exam: NORMOCEPHALIC - Eye Exam Eye Exam: Normal appearance, PERRL - ENT Exam ENT Exam: Mucous Membranes Moist, Normal Oropharynx - Neck Exam Neck exam: Positive for: Normal Inspection - Respiratory Exam Respiratory Exam: Decreased Breath Sounds, Rales - Cardiovascular Exam Cardiovascular Exam: REGULAR RHYTHM, +S1, +S2 - GI/Abdominal Exam GI & Abdominal Exam: Normal Bowel Sounds, Soft Additional comments: no tenderness - Extremities Exam Additional comments: 2 + edema of both lower extremities - Back Exam Back exam: NORMAL INSPECTION - Neurological Exam Neurological exam: Alert, Oriented x3 - Skin Skin Exam: Dry, Warm - Additional Findings Additional findings: Palliative performance scale rating 40 Results - Vital Signs Recent Vital Signs: Last Vital Signs Temp 98.1 F 03/03/17 06:00 Pulse 65 03/03/17 10:17 Resp 18 03/03/17 06:00 BP 113/52 L 03/03/17 10:20 Pulse Ox 99 03/03/17 06:00 - Labs Result Diagrams: 03/03/17 06:00 03/03/17 06:00 Labs: Laboratory Results - last 24 hr 03/03/17 03/03/17 03/03/17 06:00 06:00 06:00 WBC 6.0 RBC 3.40 L Hgb 10.2 L Hct 31.7 L MCV 93.2 MCH 30.0 MCHC 32.2 RDW 15.2 H Plt Count 158 MPV 10.8 Gran % 57.9 Lymph % (Auto) 27.1 [place] % (Auto) 10.6 H Eos % (Auto) 3.7 Baso % (Auto) 0.7 Gran # 3.49 Lymph # 1.6 [place] # 0.6 Eos # 0.2 Baso # 0.04 PT 21.8 H INR 1.95 H APTT 32.0 Sodium 137 Potassium 3.3 L Chloride 100 Carbon Dioxide 28 Anion Gap 13 BUN 34 H Creatinine 1.4 H Est GFR ( Amer) 43 Est GFR (Non-Af Amer) 36 Random Glucose 89 Calcium 8.9 Phosphorus 3.0 Magnesium 1.6 L Total Bilirubin 1.0 AST 34 ALT 26 Alkaline Phosphatase 117 Total Protein 6.8 Albumin 3.3 Globulin 3.5 Albumin/Globulin Ratio 0.9 L Assessment & Plan - Assessment and Plan (Free Text) Assessment: 86 year old female with history of severe cardiomyopathy /class IV congestive heart failure who is admitted with CHF exacerbation, shortness of breath and lower extremity edema. The patient is alert, oriented and of pleasant demeanor. 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 Goals of care discussion ensued. The patient does not want hospice care. She plans to move to her daughter's home in [place] in June. In the interim she wants to get her affairs in order. She will consider rehab if recommended. We also discussed resuscitation status. The patient is clear that she does not want to be intubated or have CPR. POLST directive explained, questions answered. POLST: DNR /DNI completed.The patients daughter Jonas Brandt is her health care proxy. A copy is placed on the chart. Psychosocial support given. Time sent with patient in goals of care and advance care planning discussion, 30 minutes Plan: POLST:DNR/DNI Palliative support in establishing goals of care
[2017-03-03] MEDS ORDERED: Magnesium Oxide 400 mg Tab UD PO ONE (14:00)
--- NOTE | 2017-03-03 14:03 | CP.PCM.PN ---
<Delicia Burciaga - Last Filed: 03/03/17 13:59> Subjective - Date & Time of Evaluation Date of Evaluation: 03/03/17 Time of Evaluation: 13:59 - Subjective Subjective: Delicia Burciaga, PGY1, Medicine Progress Note for Dr Lopez: Patient seen and examined at bedside. No acute events overnight. Patient states that her lower extremity edema is mildly decreasing. Her urine output has been 1400 ml/24 hours. Denies fever, chills, cp, increasing sob, abdominal pain, urinary symptoms. Objective - Vital Signs/Intake and Output Vital Signs (last 24 hours): Temp Pulse Resp BP Pulse Ox 98.6 F 69 18 116/59 L 99 03/03/17 12:00 03/03/17 12:00 03/03/17 12:00 03/03/17 12:00 03/03/17 06:00 Intake and Output: 03/03/17 03/03/17 06:59 18:59 Intake Total 256 Output Total 600 Balance -344 - Medications Medications: Current Medications Colchicine (Colocrys) 0.6 mg PO DAILY [facility] Last Admin: 03/03/17 10:20 Dose: 0.6 mg Digoxin (Lanoxin) 0.125 mg PO 1400 [facility] Last Admin: 03/02/17 13:53 Dose: 0.125 mg Furosemide (Lasix) 20 mg IVP Q12 [facility] Last Admin: 03/03/17 10:20 Dose: 20 mg Milrinone Lactate/Dextrose (Primacor 20mg/100ml D5w) 100 mls @ 5.925 mls/hr IV .[id number] PRN; Protocol; 0.25 MCG/KG/MIN PRN Reason: TITRATE PER MD ORDER Last Admin: 03/03/17 10:17 Dose: 0.25 mcg/kg/min, 5.925 mls/hr Isosorbide Mononitrate (Imdur) 60 mg PO 0600 [facility] Last Admin: 03/03/17 05:36 Dose: 60 mg Levothyroxine Sodium (Synthroid) 112 mcg PO 0600 [facility] Last Admin: 03/03/17 05:36 Dose: 112 mcg Losartan Potassium (Cozaar) 100 mg PO DAILY [facility] Last Admin: 03/03/17 10:20 Dose: 100 mg Magnesium Oxide (Mag-Ox) 400 mg PO DAILY [facility] Stop: 03/03/17 14:01 Metoprolol Succinate (Toprol Xl) 50 mg PO ONCE [facility] Last Admin: 03/02/17 22:02 Dose: Not Given Pantoprazole Sodium (Protonix Ec Tab) 40 mg PO Q12 [facility] Last Admin: 03/03/17 10:20 Dose: 40 mg Potassium Chloride (Klor-Con 10) 30 meq PO BID [facility] Last Admin: 03/03/17 10:20 Dose: 30 meq Spironolactone (Aldactone) 25 mg PO ONCE [facility] Last Admin: 03/02/17 22:01 Dose: Not Given Warfarin Sodium (Coumadin) 4 mg PO 1800 [facility] Last Admin: 03/02/17 18:50 Dose: 4 mg - Labs Labs: 03/03/17 06:00 03/03/17 06:00 PT 21.8 SECONDS (9.4-12.5) H 03/03/17 06:00 INR 1.95 (0.93-1.08) H 03/03/17 06:00 APTT 32.0 Seconds (25.1-36.5) 03/03/17 06:00 - Additional Findings Additional findings: - Constitutional Appears: Non-toxic, Older Than Stated Age, Chronically Ill - Head Exam Head Exam: ATRAUMATIC, NORMOCEPHALIC - Eye Exam Eye Exam: EOMI, PERRL. absent: Conjunctival injection, Scleral icterus Pupil Exam: NORMAL ACCOMODATION, PERRL - ENT Exam ENT Exam: Mucous Membranes Moist - Neck Exam Neck exam: Negative for: Lymphadenopathy, Tenderness, Thyromegaly Additional comments: + JVD - Respiratory Exam Respiratory Exam: absent: Accessory Muscle Use, Respiratory Distress Additional comments: + bibasilar crackles - Cardiovascular Exam Cardiovascular Exam: +S1, +S2 Additional comments: paced - GI/Abdominal Exam GI & Abdominal Exam: Normal Bowel Sounds, Soft. absent: Distended, Guarding, Mass, Organomegaly, Rebound, Rigid, Tenderness - Extremities Exam Extremities exam: Positive for: pedal edema, pedal pulses present. Negative for : calf tenderness Additional comments: + DP pulses, 2-3+ edema b/l extending to below the knee, MARLEEN stockings on - Back Exam Back exam: NORMAL INSPECTION - Neurological Exam Neurological exam: Alert, Oriented x3 - Psychiatric Exam Psychiatric exam: Normal Affect, Normal Mood - Skin Skin Exam: Dry, Normal Color, Warm Assessment and Plan - Assessment and Plan (Free Text) Assessment: 86 y/o F with PMH of CHF with EF of 8% and AICD placement on chronic IV milrinone therapy (for past 2.5 years), A-fib on Coumadin, hypothyroidism, and gout admitted for worsening of lower extremity edema: Worsening LE edema: 2/2 likely CHF exacerbation - UA neg for infection, trops 0.06->0.06->0.07 (same as prev admissions). - Received 40 mg IV lasix in ED. - Last echo 03/2016 showed EF 8%. Severe MR/TR. four chamber enlargement, severe lv systolic dysfxn - cont home IV milrinone, BB, ARB, DIgoxin, Cozaar, Aldactone - Strict I&Os - Daily weights - Fluid restriction - HHD, 2 gm Na, <1200 ml fluids - UO 1400 ml for past 24 hours. - Cont with V lasix to 20 mg IV BID. Will give 40 mg IV lasix x1 dose now. - Cardio consulted Dr Alcantara. F/u recs. - Cont to monitor leg swelling and lung exam. Elevated Cr: 2/2 likely CKD - baseline Cr 1.3-1.4 - Cont to monitor - Avoid nephrotoxic drugs/contrast Hypomagnesemia and Hypokalemia: - Mg 1.6, K 3.3 - Repleted - Cont to monitor A-fib: Rate controlled C/w Warfarin 4 mg daily Therapeutic today INR daily Hypothyroidism: Continue Synthroid Gout: Continue Colchicine PPX Warfarin Protonix Dispo: PT eval recommends TCU. F/u CM regarding TCU placement/availability. Will obtain Palliative consult. Lives alone at home, has nearby daughter and sister to help her out. Case seen and discussed with Dr Lopez. Delicia Burciaga, PGY1 <Eloise Lopez - Last Filed: 03/03/17 14:34> Objective - Vital Signs/Intake and Output Vital Signs (last 24 hours): Temp Pulse Resp BP Pulse Ox 98.6 F 69 18 116/59 L 99 03/03/17 12:00 03/03/17 12:00 03/03/17 12:00 03/03/17 12:00 03/03/17 06:00 Intake and Output: 03/03/17 03/03/17 06:59 18:59 Intake Total 256 Output Total 600 Balance -344 - Medications Medications: Current Medications Colchicine (Colocrys) 0.6 mg PO DAILY [facility] Last Admin: 03/03/17 10:20 Dose: 0.6 mg Digoxin (Lanoxin) 0.125 mg PO 1400 [facility] Last Admin: 03/02/17 13:53 Dose: 0.125 mg Furosemide (Lasix) 20 mg IVP Q12 [facility] Last Admin: 03/03/17 10:20 Dose: 20 mg Milrinone Lactate/Dextrose (Primacor 20mg/100ml D5w) 100 mls @ 5.925 mls/hr IV .[id number] PRN; Protocol; 0.25 MCG/KG/MIN PRN Reason: TITRATE PER MD ORDER Last Admin: 03/03/17 10:17 Dose: 0.25 mcg/kg/min, 5.925 mls/hr Isosorbide Mononitrate (Imdur) 60 mg PO 0600 [facility] Last Admin: 03/03/17 05:36 Dose: 60 mg Levothyroxine Sodium (Synthroid) 112 mcg PO 0600 [facility] Last Admin: 03/03/17 05:36 Dose: 112 mcg Losartan Potassium (Cozaar) 100 mg PO DAILY [facility] Last Admin: 03/03/17 10:20 Dose: 100 mg Metoprolol Succinate (Toprol Xl) 50 mg PO ONCE [facility] Last Admin: 03/02/17 22:02 Dose: Not Given Pantoprazole Sodium (Protonix Ec Tab) 40 mg PO Q12 [facility] Last Admin: 03/03/17 10:20 Dose: 40 mg Potassium Chloride (Klor-Con 10) 30 meq PO BID [facility] Last Admin: 03/03/17 10:20 Dose: 30 meq Spironolactone (Aldactone) 25 mg PO ONCE [facility] Last Admin: 03/02/17 22:01 Dose: Not Given Warfarin Sodium (Coumadin) 4 mg PO 1800 [facility] Last Admin: 03/02/17 18:50 Dose: 4 mg - Labs Labs: 03/03/17 06:00 03/03/17 06:00 PT 21.8 SECONDS (9.4-12.5) H 03/03/17 06:00 INR 1.95 (0.93-1.08) H 03/03/17 06:00 APTT 32.0 Seconds (25.1-36.5) 03/03/17 06:00 Attending/Attestation - Attestation I have personally seen and examined this patient.: Yes I have fully participated in the care of the patient.: Yes I have reviewed all pertinent clinical information, including history, physical exam and plan: Yes Notes (Text): 03/03/17 14:28 Patient was seen and examined with medical sales specialist. 86 year old female with a past medical history of systolic heart failure EF 8-10%,SP AICD , atrial fibrillation on anticogulation with warfarin and hypothyroidism was admitted with acute on chronic systolic CHF, Patient had good diuresis yesterday, will continue IV lasix, renal functions are stable Patient is DNR and DNI. Prognosis is guarded. Management plan was discussed in detail with patient Education was provided.
[2017-03-03] MEDS: Digoxin 125 mcg (0.125 mg) Tab PO SCH (14:49)
[2017-03-03 14:54] VITALS: PULSE 71
[2017-03-04] MEDS: Milrinone 20mg/100ml D5W 100 ML IV PRN (01:45)
[2017-03-04] MEDS: Levothyroxine 112 MCG TAB PO SCH (05:21)
[2017-03-04 06:22] LABS: BASO # 0.04 K/mm3 (0.0-2.0); BASO % 0.6 % (0.0-3.0); EOS # 0.2 (0.0-0.7); EOS % 2.9 % (1.5-5.0); GRAN # 4.22 (1.4-6.5); GRAN % 64.8 % (50.0-68.0); HEMOGLOBIN 10.3 g/dL (12.0-16.0); LYMPH # 1.5 (1.2-3.4); LYMPH % 22.5 % (22.0-35.0); MEAN CELL VOLUME 93.2 fl (80.0-105.0); MEAN CORPUSCULAR HEMOGLOBIN 29.3 pg (25.0-35.0); MEAN CORPUSCULAR HGB CONC 31.5 g/dl (31.0-37.0); MEAN PLATELET VOLUME 11.3 fl (7.0-11.0); MONO # 0.6 (0.1-0.6); MONO % 9.2 % (1.0-6.0); RBC 3.51 10^6/uL (3.5-6.1); RED CELL DISTRIBUTION WIDTH 15.4 % (11.5-14.5); WHITE BLOOD COUNT 6.5 10^3/ul (4.5-11.0)
[2017-03-04 06:26] LABS: INR 2.17 (0.93-1.08); PARTIAL THROMBOPLASTIN TIME 33.2 Seconds (25.1-36.5); PROTHROMBIN TIME 24.2 SECONDS (9.4-12.5)
[2017-03-04 06:40] LABS: ALB/GLOB RATIO 0.9 (1.1-1.8); ALBUMIN 3.3 g/dL (3.0-4.8); CALCIUM 9.2 mg/dL (8.4-10.5); MAGNESIUM 1.9 mg/dL (1.7-2.2)
[2017-03-04 06:55] VITALS: RESP 20; O2SAT 99
[2017-03-04] MEDS: Pantoprazole 40 mg EC Tab PO SCH (09:08)
[2017-03-04] MEDS: Potassium Chloride 10 mEq ER Tab PO SCH (09:09)
--- NOTE | 2017-03-04 09:27 | CP.PCM.PN ---
Subjective - Date & Time of Evaluation Date of Evaluation: 03/04/17 Time of Evaluation: 07:00 - Subjective Subjective: Stable on 2R. Upset with noisy roommate/family. Less edema and dyspnea. V/S noted. V. Paced PE: Lungs: rhonchi Cor.: S1S2 Abd.: soft Ext.: decreased edema Neuro.: alert I/O= 611/100 recorded Labs: INR= 2.17, Cr.= 1.4, K+= 4.4, Mg++= 1.9 Objective - Vital Signs/Intake and Output Vital Signs (last 24 hours): Temp Pulse Resp BP Pulse Ox 98.9 F 72 20 128/63 99 03/04/17 06:00 03/04/17 06:00 03/04/17 06:00 03/04/17 06:00 03/04/17 06:00 Intake and Output: 03/04/17 03/04/17 06:59 18:59 Intake Total 100 611 Output Total 100 Balance 100 511 - Medications Medications: Current Medications Colchicine (Colocrys) 0.6 mg PO DAILY [facility] Last Admin: 03/03/17 10:20 Dose: 0.6 mg Digoxin (Lanoxin) 0.125 mg PO 1400 [facility] Last Admin: 03/03/17 14:49 Dose: 0.125 mg Furosemide (Lasix) 40 mg IVP Q12 [facility] Milrinone Lactate/Dextrose (Primacor 20mg/100ml D5w) 100 mls @ 5.925 mls/hr IV .[id number] PRN; Protocol; 0.25 MCG/KG/MIN PRN Reason: TITRATE PER MD ORDER Last Admin: 03/04/17 01:45 Dose: 0.25 mcg/kg/min, 5.925 mls/hr Isosorbide Mononitrate (Imdur) 60 mg PO 0600 [facility] Last Admin: 03/04/17 05:21 Dose: 60 mg Levothyroxine Sodium (Synthroid) 112 mcg PO 0600 [facility] Last Admin: 03/04/17 05:21 Dose: 112 mcg Losartan Potassium (Cozaar) 100 mg PO DAILY [facility] Last Admin: 03/03/17 10:20 Dose: 100 mg Pantoprazole Sodium (Protonix Ec Tab) 40 mg PO Q12 [facility] Last Admin: 03/03/17 21:11 Dose: 40 mg Potassium Chloride (Klor-Con 10) 30 meq PO BID [facility] Last Admin: 03/03/17 17:27 Dose: 30 meq Warfarin Sodium (Coumadin) 4 mg PO 1800 [facility] Last Admin: 03/03/17 17:27 Dose: 4 mg - Labs Labs: 03/04/17 05:15 03/04/17 05:15 PT 24.2 SECONDS (9.4-12.5) H 03/04/17 05:15 INR 2.17 (0.93-1.08) H 03/04/17 05:15 APTT 33.2 Seconds (25.1-36.5) 03/04/17 05:15 Assessment and Plan - Assessment and Plan (Free Text) Assessment: Dyspnea and edema CCM/CHF lV/on home milrinone tx. Echo: Severe LVD, MR, TR and PH PAF ICD CVA Gout Hypothyroidism GB, Back and Hernia Surgery Plan: Increase IV Lasix to 40 BID Change room/roommate if possible Continue milrinone at 025 ug./Kg./min Monitor labs, I/O, sats., etc. DNR/DNI noted
[2017-03-04] MEDS ORDERED: [UNRECOGNIZED DRUG - OTHER] IV SCH (10:00)
[2017-03-04] MEDS ORDERED: MILRINONE 20 MG/100 ML IV SCH (10:00)
--- NOTE | 2017-03-04 11:28 | CP.PCM.DIS ---
<Delicia Burciaga - Last Filed: 03/04/17 12:14> Provider - Provider Date of Admission: 03/01/17 18:49 Attending physician: Eloise Lopez MD Primary care physician: Boaz Green MD Consults: Cardio [place] Pall[facility] [place] [facility] Time Spent in preparation of Discharge (in minutes): 35 Diagnosis - Discharge Diagnosis (1) Congestive heart failure Status: Chronic (2) Pedal edema Status: Chronic Hospital Course - Lab Results Lab Results: Most Recent Lab Values WBC 6.5 10^3/ul (4.5-11.0) 03/04/17 05:15 RBC 3.51 10^6/uL (3.5-6.1) 03/04/17 05:15 Hgb 10.3 g/dL (12.0-16.0) L 03/04/17 05:15 Hct 32.7 % (36.0-48.0) L 03/04/17 05:15 MCV 93.2 fl (80.0-105.0) 03/04/17 05:15 MCH 29.3 pg (25.0-35.0) 03/04/17 05:15 MCHC 31.5 g/dl (31.0-37.0) 03/04/17 05:15 RDW 15.4 % (11.5-14.5) H 03/04/17 05:15 Plt Count 173 10^3/uL (120.0-450.0) 03/04/17 05:15 MPV 11.3 fl (7.0-11.0) H 03/04/17 05:15 Gran % 64.8 % (50.0-68.0) 03/04/17 05:15 Lymph % (Auto) 22.5 % (22.0-35.0) 03/04/17 05:15 Brown % (Auto) 9.2 % (1.0-6.0) H 03/04/17 05:15 Eos % (Auto) 2.9 % (1.5-5.0) 03/04/17 05:15 Baso % (Auto) 0.6 % (0.0-3.0) 03/04/17 05:15 Gran # 4.22 (1.4-6.5) 03/04/17 05:15 Lymph # 1.5 (1.2-3.4) 03/04/17 05:15 Brown # 0.6 (0.1-0.6) 03/04/17 05:15 Eos # 0.2 (0.0-0.7) 03/04/17 05:15 Baso # 0.04 K/mm3 (0.0-2.0) 03/04/17 05:15 PT 24.2 SECONDS (9.4-12.5) H 03/04/17 05:15 INR 2.17 (0.93-1.08) H 03/04/17 05:15 APTT 33.2 Seconds (25.1-36.5) 03/04/17 05:15 Sodium 137 mmol/L (132-148) 03/04/17 05:15 Potassium 4.4 mmol/L (3.6-5.0) 03/04/17 05:15 Chloride 103 mmol/L (98-107) 03/04/17 05:15 Carbon Dioxide 27 mmol/L (21-33) 03/04/17 05:15 Anion Gap 12 (10-20) 03/04/17 05:15 BUN 33 mg/dL (7-21) H 03/04/17 05:15 Creatinine 1.4 mg/dl (0.7-1.2) H 03/04/17 05:15 Est GFR ( Amer) 43 03/04/17 05:15 Est GFR (Non-Af Amer) 36 03/04/17 05:15 Random Glucose 104 mg/dL (70-110) 03/04/17 05:15 Calcium 9.2 mg/dL (8.4-10.5) 03/04/17 05:15 Phosphorus 2.4 mg/dL (2.5-4.5) L 03/04/17 05:15 Magnesium 1.9 mg/dL (1.7-2.2) 03/04/17 05:15 Total Bilirubin 1.0 mg/dL (0.2-1.3) 03/04/17 05:15 AST 34 U/L (14-36) 03/04/17 05:15 ALT 29 U/L (7-56) 03/04/17 05:15 Alkaline Phosphatase 125 U/L (38-126) 03/04/17 05:15 Lactate Dehydrogenase 804 U/L (333-699) H 03/01/17 15:30 Total Creatine Kinase 70 U/L (35-230) 03/01/17 15:30 Troponin I 0.07 ng/mL 03/02/17 02:30 NT-Pro-B Natriuret Pep 5140 pg/mL (0-450) H 03/01/17 15:30 Total Protein 6.9 g/dL (5.8-8.3) 03/04/17 05:15 Albumin 3.3 g/dL (3.0-4.8) 03/04/17 05:15 Globulin 3.6 gm/dL 03/04/17 05:15 Albumin/Globulin Ratio 0.9 (1.1-1.8) L 03/04/17 05:15 Lipase 34 U/L (23-300) 03/01/17 15:30 Urine Color Yellow (YELLOW) 03/01/17 20:50 Urine Appearance Clear (CLEAR) 03/01/17 20:50 Urine pH 6.0 (4.7-8.0) 03/01/17 20:50 Ur Specific [place] 1.010 (1.005-1.035) 03/01/17 20:50 Urine Protein Negative mg/dL (<30 mg/dL) 03/01/17 20:50 Urine Glucose (UA) Negative mg/dL (NEGATIVE) 03/01/17 20:50 Urine Ketones Negative mg/dL (NEGATIVE) 03/01/17 20:50 Urine Blood Negative (NEGATIVE) 03/01/17 20:50 Urine Nitrate Negative (NEGATIVE) 03/01/17 20:50 Urine Bilirubin Negative (NEGATIVE) 03/01/17 20:50 Urine Urobilinogen 0.2 E.U./dL (<1 E.U./dL) 03/01/17 20:50 Ur Leukocyte Esterase Negative Nay/uL (NEGATIVE) 03/01/17 20:50 - Hospital Course Hospital Course: 86 years old female with hx of chf (EF 8% on 03/2016) on chronic milrinone drip , AICD, afib on Coumadin, hypothyroidism, gout, frequent visits to [facility] for CHF exacerbation, presents for worsening lower extremity edema for past 1 week. Pt was recently discharged from [facility] on 02/10/17 for same complaint. Pt states that she is also sob with mild exertion, like walking around house, but that is her baseline. Pt states that her lower extremity swelling now extends to her bilateral knees. Denies swelling, increased warmth or tenderness to the area. Denies fever, chills, n/v, abdominal pain, cough, urinary symptoms. Pt called Dr santiago this evening for her LE swelling and was told to come here. In ED, pt afebrile, hemodynamically stable, bibasilar crackles on lung exam, bnp 5140 ( prev 5540), therapeutic INR, mild elevation in AST 40, Cr 1.6 (baseline 1.4). CXR shows midl vascular congestion, EKG shows HR 70, electronic paced rhythm. Given Lasix 40 mg iV x1. UA negative for infection. Explained to pt, daughter and sister at bedside regarding resuscitation status, and pt states that she would like to be DNR/DNI. We were able to diurese her well with Lasix and Aldactone. PT recommends TCU. Patient to be discharged to TCU on same meds as here. Discussed with Dr Lopez. Discharge Exam - Additional Findings Additional findings: - Constitutional Appears: Non-toxic, Older Than Stated Age, Chronically Ill - Head Exam Head Exam: ATRAUMATIC, NORMOCEPHALIC - Eye Exam Eye Exam: EOMI, PERRL. absent: Conjunctival injection, Scleral icterus Pupil Exam: NORMAL ACCOMODATION, PERRL - ENT Exam ENT Exam: Mucous Membranes Moist - Neck Exam Neck exam: Negative for: Lymphadenopathy, Tenderness, Thyromegaly - Respiratory Exam Respiratory Exam: absent: Accessory Muscle Use, Respiratory Distress Additional comments: + bibasilar crackles - Cardiovascular Exam Cardiovascular Exam: +S1, +S2 Additional comments: paced - GI/Abdominal Exam GI & Abdominal Exam: Normal Bowel Sounds, Soft. absent: Distended, Guarding, Mass, Organomegaly, Rebound, Rigid, Tenderness - Extremities Exam Extremities exam: Positive for: pedal edema, pedal pulses present. Negative for : calf tenderness Additional comments: + DP pulses, 2-3+ edema b/l extending to below the knee - Back Exam Back exam: NORMAL INSPECTION - Neurological Exam Neurological exam: Alert, Oriented x3 - Psychiatric Exam Psychiatric exam: Normal Affect, Normal Mood - Skin Skin Exam: Dry, Normal Color, Warm Discharge Plan - Follow Up Plan Condition: FAIR Disposition: TRANSF TO SNF Patient education suggested?: Yes Instructions: Heart Failure (DC), Pacemaker (DC), Pulmonary Edema (DC), Heart Healthy Diet (DC) Additional Instructions: - Please continue the same medications as in the hospital. - We will keep monitoring you in TCU. Referrals: Boaz Green MD [Primary Care Provider] - <Eloise Lopez - Last Filed: 03/04/17 14:51> Provider - Provider Date of Admission: 03/01/17 18:49 Attending physician: Eloise Lopez MD Primary care physician: Boaz Green MD Hospital Course - Lab Results Lab Results: Most Recent Lab Values WBC 6.5 10^3/ul (4.5-11.0) 03/04/17 05:15 RBC 3.51 10^6/uL (3.5-6.1) 03/04/17 05:15 Hgb 10.3 g/dL (12.0-16.0) L 03/04/17 05:15 Hct 32.7 % (36.0-48.0) L 03/04/17 05:15 MCV 93.2 fl (80.0-105.0) 03/04/17 05:15 MCH 29.3 pg (25.0-35.0) 03/04/17 05:15 MCHC 31.5 g/dl (31.0-37.0) 03/04/17 05:15 RDW 15.4 % (11.5-14.5) H 03/04/17 05:15 Plt Count 173 10^3/uL (120.0-450.0) 03/04/17 05:15 MPV 11.3 fl (7.0-11.0) H 03/04/17 05:15 Gran % 64.8 % (50.0-68.0) 03/04/17 05:15 Lymph % (Auto) 22.5 % (22.0-35.0) 03/04/17 05:15 Brown % (Auto) 9.2 % (1.0-6.0) H 03/04/17 05:15 Eos % (Auto) 2.9 % (1.5-5.0) 03/04/17 05:15 Baso % (Auto) 0.6 % (0.0-3.0) 03/04/17 05:15 Gran # 4.22 (1.4-6.5) 03/04/17 05:15 Lymph # 1.5 (1.2-3.4) 03/04/17 05:15 Brown # 0.6 (0.1-0.6) 03/04/17 05:15 Eos # 0.2 (0.0-0.7) 03/04/17 05:15 Baso # 0.04 K/mm3 (0.0-2.0) 03/04/17 05:15 PT 24.2 SECONDS (9.4-12.5) H 03/04/17 05:15 INR 2.17 (0.93-1.08) H 03/04/17 05:15 APTT 33.2 Seconds (25.1-36.5) 03/04/17 05:15 Sodium 137 mmol/L (132-148) 03/04/17 05:15 Potassium 4.4 mmol/L (3.6-5.0) 03/04/17 05:15 Chloride 103 mmol/L (98-107) 03/04/17 05:15 Carbon Dioxide 27 mmol/L (21-33) 03/04/17 05:15 Anion Gap 12 (10-20) 03/04/17 05:15 BUN 33 mg/dL (7-21) H 03/04/17 05:15 Creatinine 1.4 mg/dl (0.7-1.2) H 03/04/17 05:15 Est GFR ( Amer) 43 03/04/17 05:15 Est GFR (Non-Af Amer) 36 03/04/17 05:15 Random Glucose 104 mg/dL (70-110) 03/04/17 05:15 Calcium 9.2 mg/dL (8.4-10.5) 03/04/17 05:15 Phosphorus 2.4 mg/dL (2.5-4.5) L 03/04/17 05:15 Magnesium 1.9 mg/dL (1.7-2.2) 03/04/17 05:15 Total Bilirubin 1.0 mg/dL (0.2-1.3) 03/04/17 05:15 AST 34 U/L (14-36) 03/04/17 05:15 ALT 29 U/L (7-56) 03/04/17 05:15 Alkaline Phosphatase 125 U/L (38-126) 03/04/17 05:15 Lactate Dehydrogenase 804 U/L (333-699) H 03/01/17 15:30 Total Creatine Kinase 70 U/L (35-230) 03/01/17 15:30 Troponin I 0.07 ng/mL 03/02/17 02:30 NT-Pro-B Natriuret Pep 5140 pg/mL (0-450) H 03/01/17 15:30 Total Protein 6.9 g/dL (5.8-8.3) 03/04/17 05:15 Albumin 3.3 g/dL (3.0-4.8) 03/04/17 05:15 Globulin 3.6 gm/dL 03/04/17 05:15 Albumin/Globulin Ratio 0.9 (1.1-1.8) L 03/04/17 05:15 Lipase 34 U/L (23-300) 03/01/17 15:30 Urine Color Yellow (YELLOW) 03/01/17 20:50 Urine Appearance Clear (CLEAR) 03/01/17 20:50 Urine pH 6.0 (4.7-8.0) 03/01/17 20:50 Ur Specific [place] 1.010 (1.005-1.035) 03/01/17 20:50 Urine Protein Negative mg/dL (<30 mg/dL) 03/01/17 20:50 Urine Glucose (UA) Negative mg/dL (NEGATIVE) 03/01/17 20:50 Urine Ketones Negative mg/dL (NEGATIVE) 03/01/17 20:50 Urine Blood Negative (NEGATIVE) 03/01/17 20:50 Urine Nitrate Negative (NEGATIVE) 03/01/17 20:50 Urine Bilirubin Negative (NEGATIVE) 03/01/17 20:50 Urine Urobilinogen 0.2 E.U./dL (<1 E.U./dL) 03/01/17 20:50 Ur Leukocyte Esterase Negative Nay/uL (NEGATIVE) 03/01/17 20:50 Attending/Attestation - Attestation I have personally seen and examined this patient.: Yes I have fully participated in the care of the patient.: Yes I have reviewed all pertinent clinical information, including history, physical exam and plan: Yes Notes (Text): 03/04/17 14:41 Patient was seen and examined with nurses medical assistants phlebotomists. Family is at bed side. 86 year old female with a past medical history of systolic heart failure EF 8-10%,SP AICD , chronic atrial fibrillation on anticoagulation with warfarin and hypothyroidism was admitted with acute on chronic systolic CHF, treated with IV lasix, improving slowly, on room air.Renal functions are stable.She is on room air.She will be discharged to TCU for rehabilitation. Patient INR is therapeutic warfarin with current dose . Patient is DNR and DNI. Prognosis is guarded. Management plan was discussed in detail with patient Education was provided.
[2017-03-04 12:10] VITALS: BP 135/64; PULSE 71; TEMP 97.5
== END 2017-03-04 13:02 | DRG 291 ==
LOC: ED 14:54 → ERH 16:31 → OBSVTOIN 18:49 → 2RSO 20:33
PROVIDERS: ADMIT Internal Medicine; ATTEND Internal Medicine
DX: I13.0 Hypertensive heart and chronic kidney disease with heart failure and stage 1 through stage 4 chronic kidney disease, or unspecified chronic kidney disease (principal); I50.23 Acute on chronic systolic (congestive) heart failure; I27.20 Pulmonary hypertension, unspecified; I42.9 Cardiomyopathy, unspecified; E83.42 Hypomagnesemia; J44.9 Chronic obstructive pulmonary disease, unspecified; I48.0 Paroxysmal atrial fibrillation; Z79.01 Long term (current) use of anticoagulants; I48.2 Chronic atrial fibrillation; E03.9 Hypothyroidism, unspecified; M10.9 Gout, unspecified; N18.9 Chronic kidney disease, unspecified; Z66 Do not resuscitate; I25.10 Atherosclerotic heart disease of native coronary artery without angina pectoris; E78.00 Pure hypercholesterolemia, unspecified; E87.6 Hypokalemia; Z95.810 Presence of automatic (implantable) cardiac defibrillator; Z86.73 Personal history of transient ischemic attack (TIA), and cerebral infarction without residual deficits; Z87.891 Personal history of nicotine dependence

== ENCOUNTER 2017-03-04 13:07 | Inpatient (IN) | payer MEDICARE, OTHER ==
[2017-03-04 13:10] VITALS: BMI 25.3
[2017-03-04] MEDS ORDERED: Milrinone 20mg/100ml D5W 100 ML IV PRN ×2 (13:11→13:59)
[2017-03-04] MEDS ORDERED: Influenza Vaccine 60 mcg/0.5 mL SYR (4YR UP) IM ONE (15:22)
[2017-03-04] MEDS ORDERED: Pneumococcal 23-Valent Vaccine IM ONE (15:22)
[2017-03-04] MEDS: Digoxin 125 mcg (0.125 mg) Tab PO SCH (16:22)
[2017-03-04] MEDS: Pantoprazole 40 mg EC Tab PO SCH (16:22)
[2017-03-04] MEDS: guaiFENesin DM 100 mg-10 mg/5 ml UD PO PRN (17:59)
[2017-03-04] MEDS: Milrinone 20mg/100ml D5W 100 ML IV PRN (21:21)
[2017-03-05] MEDS: Levothyroxine 112 MCG TAB PO SCH (05:36)
[2017-03-05] MEDS: Pantoprazole 40 mg EC Tab PO SCH ×2 (05:36→17:00)
[2017-03-05 07:48] LABS: BASO # 0.1 K/mm3 (0.0-2.0); BASO % 1.7 % (0.0-3.0); EOS # 0.1 (0.0-0.7); EOS % 1.5 % (1.5-5.0); GRAN # 3.77 (1.4-6.5); HEMOGLOBIN 10.5 g/dL (12.0-16.0); LYMPH # 1.2 (1.2-3.4); LYMPH % 20.8 % (22.0-35.0); MEAN CELL VOLUME 92.7 fl (80.0-105.0); MEAN CORPUSCULAR HEMOGLOBIN 29.6 pg (25.0-35.0); MEAN CORPUSCULAR HGB CONC 31.9 g/dl (31.0-37.0); MONO # 0.7 (0.1-0.6); RBC 3.55 10^6/uL (3.5-6.1); RED CELL DISTRIBUTION WIDTH 15.1 % (11.5-14.5); WHITE BLOOD COUNT 5.9 10^3/ul (4.5-11.0)
[2017-03-05 07:52] LABS: ALBUMIN 3.6 g/dL (3.0-4.8); CALCIUM 9.5 mg/dL (8.4-10.5); MAGNESIUM 1.8 mg/dL (1.7-2.2)
[2017-03-05 08:18] LABS: INR 2.47 (0.93-1.08); PARTIAL THROMBOPLASTIN TIME 33.1 Seconds (25.1-36.5); PROTHROMBIN TIME 27.7 SECONDS (9.4-12.5)
[2017-03-05] MEDS: Potassium Chloride 10 mEq ER Tab PO SCH (08:34)
--- NOTE | 2017-03-05 09:03 | PN ---
DATE: 03/05/2017 SUBJECTIVE: The patient is seen lying in bed in the TCU. She feels somewhat better. She still has some dyspnea and peripheral edema. She hopes to travel to [place], [place], to visit her daughter upon discharge. CURRENT MEDICATIONS: Remain Aldactone 25 mg b.i.d., colchicine, Coumadin, Cozaar 100 mg daily, Imdur 60 mg daily, potassium supplement, digoxin 0.125 mg daily, Lasix 40 mg IV b.i.d., Primacor infusion, Protonix, and Synthroid. OBJECTIVE: GENERAL: She is a very elderly woman who appears comfortable at rest. VITAL SIGNS: Blood pressure is 154/60 with the pulse of 70 and respirations are 14 and she is afebrile. HEENT: No JVD. CHEST: Bibasilar rales. HEART: PMI displaced laterally with very soft tones noted. ABDOMEN: Soft and nontender with normoactive bowel sounds. EXTREMITIES: Revealed 2+ leg edema. DIAGNOSTIC DATA: Potassium 4.5, BUN and creatinine 33 and 1.4. Hemoglobin and hematocrit 10.5 and 32.9 with the white count of 5.9 and platelet count of 169,000. IMPRESSION: 1. Decompensated congestive heart failure, [id number], with frequent recurrence predominantly systolic. 2. Congestive cardiomyopathy, maintained on home milrinone infusion. 3. Severe mitral and tricuspid regurgitation. 4. Paroxysmal atrial fibrillation. 5. Status post ICD implant. RECOMMENDATIONS: Her current medications will be continued for now. A dose of Zaroxolyn will be added today in an attempt to increase the diuresis. DNR/DNI order is in place. In general, conservative management will be most appropriate. We will continue to follow and make further recommendations as appropriate. Dino Thompson MD
[2017-03-05] MEDS ORDERED: metOLazone 5 MG TAB PO ONE (10:00)
[2017-03-05] MEDS: Milrinone 20mg/100ml D5W 100 ML IV PRN (12:12)
[2017-03-05] MEDS: Digoxin 125 mcg (0.125 mg) Tab PO SCH (14:10)
[2017-03-05] MEDS: guaiFENesin DM 100 mg-10 mg/5 ml UD PO PRN (14:13)
--- NOTE | 2017-03-05 16:15 | CP.PCM.HP ---
<Giles Taylor - Last Filed: 03/05/17 16:09> History of Present Illness - History of Present Illness History of Present Illness: 86 years old female with hx of chf (EF 8% on 03/2016) on chronic milrinone drip , AICD, afib on Coumadin, hypothyroidism, gout, frequent visits to [facility] for CHF exacerbation, presented for worsening lower extremity edema for past 1 week. Pt was recently discharged from [facility] on 02/10/17 for same complaint. Pt stated that she was also sob with mild exertion, like walking around house, but that is her baseline. Pt states that her lower extremity swelling now extends to her bilateral knees. Denies swelling, increased warmth or tenderness to the area. Denies fever, chills, n/v, abdominal pain, cough, urinary symptoms. Pt called Dr alcantara for her LE swelling and was told to come to ED. In ED, pt afebrile, hemodynamically stable, bibasilar crackles on lung exam, bnp 5140 (prev 5540), therapeutic INR, mild elevation in AST 40, Cr 1.6 (baseline 1.4). CXR showed mild vascular congestion, EKG shows HR 70, electronic paced rhythm. Given Lasix 40 mg iV x1. UA negative for infection. Explained to pt, daughter and sister at bedside regarding resuscitation status, and pt states that she would like to be DNR/DNI. We were able to diurese her well with Lasix and Aldactone. Admitted to TCU for deconditioning. ROS POSITIVES: SOB (Chronic) NEGATIVES: Fever, chills, abdominal pain, and urinary symptoms. PMH: Systolic Heart Failure w/ ICD placement, Atrial Fibrillation, Hypothyroidism, Gout PSH: Laminectomy, Cholecystectomy, Hernia Repair FH: non-contributory Allergies: codeine, penicillins Social hx: former smoker, quit 1990. Denies alcohol or illicit drug use Medications: As per MAY PMD: Dr. Green Maintenance Machine Repairer: Dr. Alacntara Present on Admission - Present on Admission Any Indicators Present on Admission: No Past Patient History - Infectious Disease Hx of Infectious Diseases: None - Tetanus Immunizations Tetanus Immunization: Unknown - Past Medical History & Family History Past Medical History?: Yes - Past Social History Smoking Status: Former Smoker - CARDIAC Hx Cardiac Disorders: Yes Hx Congestive Heart Failure: Yes - PULMONARY Hx Chronic Obstructive Pulmonary Disease (COPD): Yes - NEUROLOGICAL HX Cerebrovascular Accident: Yes - HEENT Hx Cataracts: Yes - RENAL Hx Chronic Kidney Disease: No - ENDOCRINE/METABOLIC Hx Hypothyroidism: Yes - HEMATOLOGICAL/ONCOLOGICAL Hx Blood Disorders: No - INTEGUMENTARY Hx Dermatological Problems: Yes (b/l pedal edema) - MUSCULOSKELETAL/RHEUMATOLOGICAL Hx Falls: No - GASTROINTESTINAL Hx Gastrointestinal Disorders: Yes (CHOLECYSTECTOMY,HERNIORHAPPHY) - GENITOURINARY/GYNECOLOGICAL Hx Reproductive Disorders: No - PSYCHIATRIC Hx Substance Use: No - SURGICAL HISTORY Hx Cholecystectomy: Yes - ANESTHESIA Hx Anesthesia: Yes Hx Anesthesia Reactions: No Hx Malignant Hyperthermia: No Meds Allergies/Adverse Reactions: Allergies Allergy/AdvReac Type Severity Reaction Status Date / Time codeine Allergy SHORTNESS Verified 03/01/17 15:05 OF BREATH Penicillins Allergy RASH Verified 03/01/17 15:05 Results - Vital Signs Recent Vital Signs: Last Vital Signs Temp 97.1 F L 03/05/17 10:00 Pulse 70 03/05/17 10:00 Resp 18 03/05/17 10:00 BP 111/61 03/05/17 14:11 Pulse Ox 94 L 03/05/17 10:00 - Labs Result Diagrams: 03/05/17 07:00 03/05/17 07:00 Labs: Laboratory Results - last 24 hr 03/05/17 03/05/17 03/05/17 07:00 07:00 07:00 WBC 5.9 RBC 3.55 Hgb 10.5 L Hct 32.9 L MCV 92.7 MCH 29.6 MCHC 31.9 RDW 15.1 H Plt Count 169 MPV 11.0 Gran % 64.0 Lymph % (Auto) 20.8 L Kent % (Auto) 12.0 H Eos % (Auto) 1.5 Baso % (Auto) 1.7 Gran # 3.77 Lymph # 1.2 Kent # 0.7 H Eos # 0.1 Baso # 0.10 PT 27.7 H INR 2.47 H APTT 33.1 Sodium 135 Potassium 4.5 Chloride 99 Carbon Dioxide 23 Anion Gap 18 BUN 33 H Creatinine 1.4 H Est GFR ( Amer) 43 Est GFR (Non-Af Amer) 36 Random Glucose 92 Calcium 9.5 Phosphorus 2.8 Magnesium 1.8 Total Bilirubin 1.7 H AST 34 ALT 34 Alkaline Phosphatase 135 H Total Protein 7.3 Albumin 3.6 Globulin 3.7 Albumin/Globulin Ratio 1.0 L Assessment & Plan - Assessment and Plan (Free Text) Assessment: 86 y/o F with PMH of CHF with EF of 8% and AICD placement on chronic IV milrinone therapy (for past 2.5 years), A-fib on Coumadin, hypothyroidism, and gout admitted for worsening of lower extremity edema. Transferred to TCU for deconditioning Plan: CHF exacerbation - UA neg for infection, trops 0.06->0.06->0.07 (same as prev admissions). - Received 40 mg IV lasix in ED. - Last echo 03/2016 showed EF 8%. Severe MR/TR. four chamber enlargement, severe lv systolic dysfxn - cont home IV milrinone, BB, ARB, DIgoxin, Cozaar, Aldactone - Strict I&Os - Daily weights - Fluid restriction (1200ml) - HHD, 2 gm Na, <1200 ml fluids - UO 1400 ml for past 24 hours. - Cont with V lasix to 20 mg IV BID. - Cardio consulted Dr Alcantara. - Recs Appreciated Added Zaroxolyn - Cont to monitor leg swelling and lung exam. Elevated Cr: 2/2 likely CKD - baseline Cr 1.3-1.4 - Cont to monitor - Avoid nephrotoxic drugs/contrast Hypomagnesemia and Hypokalemia: -Monitor A-fib: Rate controlled C/w Warfarin 4 mg daily Therapeutic today INR daily Hypothyroidism: Continue Synthroid Gout: Continue Colchicine PPX Warfarin Protonix Case seen and discussed with Dr Lopez. Giles Taylor, PGY1 <Eloise Lopez - Last Filed: 03/09/17 13:08> Results - Vital Signs Recent Vital Signs: Last Vital Signs Temp 98 F 03/09/17 06:00 Pulse 70 03/09/17 12:03 Resp 20 03/09/17 06:00 BP 96/46 L 03/09/17 06:14 Pulse Ox 99 03/09/17 12:03 - Labs Result Diagrams: 03/07/17 08:00 03/09/17 06:00 Labs: Laboratory Results - last 24 hr 03/09/17 03/09/17 06:00 06:00 PT 28.3 H INR 2.52 H Sodium 134 Potassium 4.5 Chloride 91 L Carbon Dioxide 33 Anion Gap 14 BUN 31 H Creatinine 1.5 H Est GFR ( Amer) 40 Est GFR (Non-Af Amer) 33 Random Glucose 90 Calcium 9.2 Attending/Attestation - Attestation I have personally seen and examined this patient.: Yes I have fully participated in the care of the patient.: Yes I have reviewed all pertinent clinical information: Yes Notes (Text): 03/09/17 13:07 Patient was seen and examined with medical research scientist. Family is at bed side. 86 year old female with a past medical history of systolic heart failure EF 8-10%,SP AICD , chronic atrial fibrillation on anticoagulation with warfarin and hypothyroidism was admitted with acute on chronic systolic CHF, treated with IV lasix, improving slowly, on room air.Renal functions are stable.She is on room air.She was discharged from hospital to to TCU for rehabilitation.We will continue IV lasix and will get physical therapy .We will monitor BUN and creatinin Patient INR is therapeutic warfarin with current dose . Patient is DNR and DNI. Prognosis is guarded. Management plan was discussed in detail with patient Education was provided.
[2017-03-06] MEDS: Milrinone 20mg/100ml D5W 100 ML IV PRN (05:18)
[2017-03-06] MEDS: Pantoprazole 40 mg EC Tab PO SCH ×2 (05:25→17:00)
[2017-03-06] MEDS: Levothyroxine 112 MCG TAB PO SCH (05:25)
[2017-03-06 08:06] LABS: CALCIUM 9.5 mg/dL (8.4-10.5)
[2017-03-06] MEDS: Potassium Chloride 10 mEq ER Tab PO SCH (08:21)
[2017-03-06] MEDS: guaiFENesin DM 100 mg-10 mg/5 ml UD PO PRN (13:05)
[2017-03-06] MEDS: Digoxin 125 mcg (0.125 mg) Tab PO SCH (14:33)
[2017-03-07] MEDS: Milrinone 20mg/100ml D5W 100 ML IV PRN ×2 (01:52→23:56)
[2017-03-07] MEDS: Pantoprazole 40 mg EC Tab PO SCH ×2 (06:38→18:26)
[2017-03-07] MEDS: Levothyroxine 112 MCG TAB PO SCH (06:38)
[2017-03-07 08:12] LABS: BASO # 0.04 K/mm3 (0.0-2.0); BASO % 0.8 % (0.0-3.0); EOS # 0.2 (0.0-0.7); EOS % 3.3 % (1.5-5.0); GRAN # 3.03 (1.4-6.5); GRAN % 59.3 % (50.0-68.0); HEMOGLOBIN 10.7 g/dL (12.0-16.0); LYMPH # 1.1 (1.2-3.4); LYMPH % 22.3 % (22.0-35.0); MEAN CELL VOLUME 91.6 fl (80.0-105.0); MEAN CORPUSCULAR HGB CONC 32.7 g/dl (31.0-37.0); MEAN PLATELET VOLUME 10.5 fl (7.0-11.0); MONO # 0.7 (0.1-0.6); MONO % 14.3 % (1.0-6.0); RBC 3.57 10^6/uL (3.5-6.1); WHITE BLOOD COUNT 5.1 10^3/ul (4.5-11.0)
[2017-03-07 08:17] LABS: CALCIUM 9.6 mg/dL (8.4-10.5)
[2017-03-07] MEDS: Potassium Chloride 10 mEq ER Tab PO SCH (08:23)
--- NOTE | 2017-03-07 11:52 | CP.PCM.PN ---
<Estuardo Traore - Last Filed: 03/07/17 11:59> Subjective - Date & Time of Evaluation Date of Evaluation: 03/07/17 Time of Evaluation: 06:00 - Subjective Subjective: Patient seen and evaluated bedside. States she was breathing okay, walking around and feeling better. She also stated her swelling had improved in her legs. No additional complaints at this time. Objective - Vital Signs/Intake and Output Vital Signs (last 24 hours): Temp Pulse Resp BP Pulse Ox 97.1 F L 70 18 121/63 94 L 03/05/17 10:00 03/05/17 10:00 03/05/17 10:00 03/07/17 06:07 03/05/17 10:00 Intake and Output: 03/07/17 03/07/17 06:59 18:59 Intake Total 100 Balance 100 - Medications Medications: Current Medications Colchicine (Colocrys) 0.6 mg PO DAILY YAA PRN Reason: Protocol Last Admin: 03/07/17 10:02 Dose: 0.6 mg Digoxin (Lanoxin) 0.125 mg PO 1400 YAA PRN Reason: Protocol Last Admin: 03/06/17 14:33 Dose: 0.125 mg Furosemide (Lasix) 40 mg IVP 0600,1400 YAA PRN Reason: Protocol Last Admin: 03/07/17 06:07 Dose: 40 mg Guaifenesin/Dextromethorphan (Robitussin Dm) 5 ml PO Q4H PRN PRN Reason: Cough Last Admin: 03/06/17 13:05 Dose: 5 ml Milrinone Lactate/Dextrose (Primacor 20mg/100ml D5w) 100 mls @ 5.985 mls/hr IV .[id number] PRN; Protocol; 0.28 MCG/KG/MIN PRN Reason: TITRATE PER MD ORDER Last Admin: 03/07/17 01:52 Dose: 0.28 mcg/kg/min, 5.985 mls/hr Isosorbide Mononitrate (Imdur) 60 mg PO 0600 YAA PRN Reason: Protocol Last Admin: 03/07/17 06:38 Dose: 60 mg Levothyroxine Sodium (Synthroid) 112 mcg PO 0600 YAA PRN Reason: Protocol Last Admin: 03/07/17 06:38 Dose: 112 mcg Losartan Potassium (Cozaar) 100 mg PO DAILY YAA PRN Reason: Protocol Last Admin: 03/07/17 10:07 Dose: 100 mg Pantoprazole Sodium (Protonix Ec Tab) 40 mg PO 0600,1600 YAA PRN Reason: Protocol Last Admin: 03/07/17 06:38 Dose: 40 mg Potassium Chloride (Klor-Con 10) 30 meq PO 0800 YAA PRN Reason: Protocol Last Admin: 03/07/17 08:23 Dose: 30 meq Spironolactone (Aldactone) 25 mg PO BID YAA PRN Reason: Protocol Last Admin: 03/07/17 10:02 Dose: 25 mg Warfarin Sodium (Coumadin) 4 mg PO 1800 YAA PRN Reason: Protocol Last Admin: 03/06/17 17:53 Dose: 4 mg - Labs Labs: 03/07/17 08:00 03/07/17 08:00 PT 27.7 SECONDS (9.4-12.5) H 03/05/17 07:00 INR 2.47 (0.93-1.08) H 03/05/17 07:00 APTT 33.1 Seconds (25.1-36.5) 03/05/17 07:00 - Constitutional Appears: Non-toxic, No Acute Distress, Chronically Ill - Head Exam Head Exam: ATRAUMATIC, NORMAL INSPECTION, NORMOCEPHALIC - Eye Exam Eye Exam: EOMI, PERRL - ENT Exam ENT Exam: Mucous Membranes Moist - Neck Exam Neck Exam: absent: Lymphadenopathy, Tenderness - Respiratory Exam Respiratory Exam: NORMAL BREATHING PATTERN Additional comments: bibasilar crackles - Cardiovascular Exam Cardiovascular Exam: +S1, +S2 Additional comments: Paced - GI/Abdominal Exam GI & Abdominal Exam: Soft, Normal Bowel Sounds. absent: Tenderness - Extremities Exam Extremities Exam: Pedal Edema - Neurological Exam Neurological Exam: Alert, Awake, Oriented x3 Assessment and Plan - Assessment and Plan (Free Text) Assessment: 86 y/o F with PMH of CHF with EF of 8% and AICD placement on chronic IV milrinone therapy (for past 2.5 years), A-fib on Coumadin, hypothyroidism, and gout admitted for worsening of lower extremity edema. Transferred to TCU for deconditioning. Plan: 1. CHF exacerbation - UA neg for infection, trops 0.06->0.06->0.07 (same as prev admissions). - Received 40 mg IV lasix in ED. - Last echo 03/2016 showed EF 8%. Severe MR/TR. four chamber enlargement, severe lv systolic dysfxn - cont home IV milrinone, BB, ARB, DIgoxin, Cozaar, Aldactone - Strict I&Os - Daily weights - Fluid restriction (1200ml) - HHD, 2 gm Na, <1200 ml fluids - Cont with V lasix to 20 mg IV BID. - Cardio consulted Dr Alcantara. - Recs Appreciated -Added Zaroxolyn - Cont to monitor leg swelling and lung exam. 2. Elevated Cr: 2/2 likely CKD - baseline Cr 1.3-1.4, Cr today was 1,4 - Cont to monitor - Avoid nephrotoxic drugs/contrast Hypomagnesemia and Hypokalemia: -Monitor A-fib: -Rate controlled -C/w Warfarin 4 mg daily -Therapeutic today -INR daily Hypothyroidism: -Continue Synthroid Gout: -Continue Colchicine PPX -Warfarin -Protonix <Marleny Man A - Last Filed: 03/07/17 13:50> Objective - Vital Signs/Intake and Output Vital Signs (last 24 hours): Temp Pulse Resp BP Pulse Ox 97.1 F L 70 18 121/63 94 L 03/05/17 10:00 03/05/17 10:00 03/05/17 10:00 03/07/17 06:07 03/05/17 10:00 Intake and Output: 03/07/17 03/07/17 06:59 18:59 Intake Total 100 Balance 100 - Medications Medications: Current Medications Colchicine (Colocrys) 0.6 mg PO DAILY YAA PRN Reason: Protocol Last Admin: 03/07/17 10:02 Dose: 0.6 mg Digoxin (Lanoxin) 0.125 mg PO 1400 YAA PRN Reason: Protocol Last Admin: 03/06/17 14:33 Dose: 0.125 mg Furosemide (Lasix) 40 mg IVP 0600,1400 YAA PRN Reason: Protocol Last Admin: 03/07/17 06:07 Dose: 40 mg Guaifenesin/Dextromethorphan (Robitussin Dm) 5 ml PO Q4H PRN PRN Reason: Cough Last Admin: 03/06/17 13:05 Dose: 5 ml Milrinone Lactate/Dextrose (Primacor 20mg/100ml D5w) 100 mls @ 5.985 mls/hr IV .[id number] PRN; Protocol; 0.28 MCG/KG/MIN PRN Reason: TITRATE PER MD ORDER Last Admin: 03/07/17 01:52 Dose: 0.28 mcg/kg/min, 5.985 mls/hr Isosorbide Mononitrate (Imdur) 60 mg PO 0600 YAA PRN Reason: Protocol Last Admin: 03/07/17 06:38 Dose: 60 mg Levothyroxine Sodium (Synthroid) 112 mcg PO 0600 YAA PRN Reason: Protocol Last Admin: 03/07/17 06:38 Dose: 112 mcg Losartan Potassium (Cozaar) 100 mg PO DAILY YAA PRN Reason: Protocol Last Admin: 03/07/17 10:07 Dose: 100 mg Pantoprazole Sodium (Protonix Ec Tab) 40 mg PO 0600,1600 YAA PRN Reason: Protocol Last Admin: 03/07/17 06:38 Dose: 40 mg Potassium Chloride (Klor-Con 10) 30 meq PO 0800 YAA PRN Reason: Protocol Last Admin: 03/07/17 08:23 Dose: 30 meq Spironolactone (Aldactone) 25 mg PO BID YAA PRN Reason: Protocol Last Admin: 03/07/17 10:02 Dose: 25 mg Warfarin Sodium (Coumadin) 4 mg PO 1800 YAA PRN Reason: Protocol Last Admin: 03/06/17 17:53 Dose: 4 mg - Labs Labs: 03/07/17 08:00 03/07/17 08:00 PT 31.5 SECONDS (9.4-12.5) H 03/07/17 12:20 INR 2.80 (0.93-1.08) H 03/07/17 12:20 APTT 33.1 Seconds (25.1-36.5) 03/05/17 07:00 Attending/Attestation - Attestation I have personally seen and examined this patient.: Yes I have fully participated in the care of the patient.: Yes I have reviewed all pertinent clinical information, including history, physical exam and plan: Yes Notes (Text): 03/07/17 13:46 86 year old female with past medical history of systolic CHF, s/p AICD, atrial fibrillation on anticoagulation, CKD and hypothyroidism who was admitted for acute on chronic CHF exacerbation. She is on iv lasix, digoxin, imdur, cozaar, spironalactone and milrinonone. Cardiology is following the patient. INR today is 2.8. Will decrease coumadin dose for tonight. Continue to monitor creatinine closely for CKD. Continue with physical therapy while in TCU. Patient is DNR/DNI. Marleny Man MD Hospitalist.
[2017-03-07 12:39] LABS: INR 2.8 (0.93-1.08); PROTHROMBIN TIME 31.5 SECONDS (9.4-12.5)
--- NOTE | 2017-03-07 13:33 | PN ---
DATE: 03/07/2017 SUBJECTIVE: The patient is seen lying in bed on Transitional Care Unit. She is comfortable. Her leg edema is somewhat improved. She has no dyspnea at rest. CURRENT MEDICATIONS: Remain Aldactone 25 mg b.i.d., colchicine 0.6 mg daily, warfarin 4 mg daily, Cozaar 100 mg daily, Imdur 60 mg daily, potassium 30 mEq daily, digoxin 0.125 mg daily, Lasix 40 mg IV b.i.d., milrinone infusion, Protonix, and Synthroid. PHYSICAL EXAMINATION: GENERAL: She is a very elderly woman who appears comfortable at rest. VITAL SIGNS: Her blood pressure is 120/60 with a pulse of 60, respirations are 14. She is afebrile. HEENT: No JVD. CHEST: Bibasilar rales noted. HEART: PMI displaced laterally with very soft tones present. ABDOMEN: Soft, nontender with bowel sounds. EXTREMITIES: 1 to 2+ leg edema. Compression stockings are in place. DIAGNOSTIC DATA: Potassium is 4.4, BUN and creatinine are 32 and 1.4. White count 5.1, hemoglobin and hematocrit 10.7 and 32.7 with a platelet count of 166,000. IMPRESSION: 1. Decompensated congestive heart failure, acute on chronic with severe left ventricular systolic dysfunction and class III heart failure symptoms. 2. Severe mitral and tricuspid regurgitation. 3. Paroxysmal atrial fibrillation. 4. Status post implantable cardioverter-defibrillator implant. RECOMMENDATIONS: Her current medications will be continued for now. Increase activity as tolerated is advised. DNR/DNI order are in place. Her overall prognosis remains extremely limited. Conservative management is advised. I am going to continue to follow and make further recommendations. Dino Thompson MD
[2017-03-07] MEDS: Digoxin 125 mcg (0.125 mg) Tab PO SCH (14:41)
[2017-03-08] MEDS: Levothyroxine 112 MCG TAB PO SCH (06:23)
[2017-03-08] MEDS: Pantoprazole 40 mg EC Tab PO SCH ×2 (06:24→17:00)
[2017-03-08] MEDS: Potassium Chloride 10 mEq ER Tab PO SCH (08:27)
[2017-03-08 09:06] LABS: INR 2.87 (0.93-1.08); PROTHROMBIN TIME 32.2 SECONDS (9.4-12.5)
[2017-03-08] MEDS: Digoxin 125 mcg (0.125 mg) Tab PO SCH (14:44)
[2017-03-08] MEDS: Milrinone 20mg/100ml D5W 100 ML IV PRN (21:53)
[2017-03-09] MEDS: Pantoprazole 40 mg EC Tab PO SCH ×2 (06:13→17:00)
[2017-03-09] MEDS: Levothyroxine 112 MCG TAB PO SCH (06:13)
[2017-03-09 06:58] LABS: CALCIUM 9.2 mg/dL (8.4-10.5)
[2017-03-09 07:19] LABS: INR 2.52 (0.93-1.08); PROTHROMBIN TIME 28.3 SECONDS (9.4-12.5)
[2017-03-09] MEDS: Potassium Chloride 10 mEq ER Tab PO SCH (08:42)
--- NOTE | 2017-03-09 12:21 | CP.PCM.PN ---
<Estuardo Traore - Last Filed: 03/09/17 17:13> Subjective - Date & Time of Evaluation Date of Evaluation: 03/09/17 Time of Evaluation: 06:00 - Subjective Subjective: Patient was seen and examined while seated in chair with legs up. Patient stated she felt better overall, is walking around and swelling has gone down in legs significantly. Objective - Vital Signs/Intake and Output Vital Signs (last 24 hours): Temp Pulse Resp BP Pulse Ox 98 F 70 20 96/46 L 99 03/09/17 06:00 03/09/17 12:03 03/09/17 06:00 03/09/17 06:14 03/09/17 12:03 - Medications Medications: Current Medications Colchicine (Colocrys) 0.6 mg PO DAILY YAA PRN Reason: Protocol Last Admin: 03/08/17 11:00 Dose: 0.6 mg Digoxin (Lanoxin) 0.125 mg PO 1400 YAA PRN Reason: Protocol Last Admin: 03/08/17 14:44 Dose: 0.125 mg Furosemide (Lasix) 40 mg IVP 0600,1400 YAA PRN Reason: Protocol Last Admin: 03/09/17 06:14 Dose: Not Given Guaifenesin/Dextromethorphan (Robitussin Dm) 5 ml PO Q4H PRN PRN Reason: Cough Last Admin: 03/06/17 13:05 Dose: 5 ml Milrinone Lactate/Dextrose (Primacor 20mg/100ml D5w) 100 mls @ 5.985 mls/hr IV .[id number] PRN; Protocol; 0.28 MCG/KG/MIN PRN Reason: TITRATE PER MD ORDER Last Admin: 03/08/17 21:53 Dose: 0.28 mcg/kg/min, 5.985 mls/hr Isosorbide Mononitrate (Imdur) 60 mg PO 0600 YAA PRN Reason: Protocol Last Admin: 03/09/17 06:13 Dose: 60 mg Levothyroxine Sodium (Synthroid) 112 mcg PO 0600 YAA PRN Reason: Protocol Last Admin: 03/09/17 06:13 Dose: 112 mcg Losartan Potassium (Cozaar) 100 mg PO DAILY YAA PRN Reason: Protocol Last Admin: 03/09/17 10:43 Dose: Not Given Pantoprazole Sodium (Protonix Ec Tab) 40 mg PO 0600,1600 YAA PRN Reason: Protocol Last Admin: 03/09/17 06:13 Dose: 40 mg Potassium Chloride (Klor-Con 10) 30 meq PO 0800 YAA PRN Reason: Protocol Last Admin: 03/09/17 08:42 Dose: 30 meq Spironolactone (Aldactone) 25 mg PO BID YAA PRN Reason: Protocol Last Admin: 03/09/17 10:42 Dose: 25 mg Warfarin Sodium (Coumadin) 3 mg PO 1800 YAA PRN Reason: Protocol Last Admin: 03/08/17 17:45 Dose: 3 mg - Labs Labs: 03/07/17 08:00 03/09/17 06:00 PT 28.3 SECONDS (9.4-12.5) H 03/09/17 06:00 INR 2.52 (0.93-1.08) H 03/09/17 06:00 APTT 33.1 Seconds (25.1-36.5) 03/05/17 07:00 - Constitutional Appears: Non-toxic, No Acute Distress - Head Exam Head Exam: ATRAUMATIC, NORMAL INSPECTION, NORMOCEPHALIC - Eye Exam Eye Exam: Normal appearance Pupil Exam: NORMAL ACCOMODATION - ENT Exam ENT Exam: Mucous Membranes Moist - Neck Exam Neck Exam: Full ROM, Normal Inspection - Respiratory Exam Respiratory Exam: NORMAL BREATHING PATTERN Additional comments: mild crackles in right lower lungs - Cardiovascular Exam Cardiovascular Exam: REGULAR RHYTHM, +S1, +S2 - GI/Abdominal Exam GI & Abdominal Exam: Soft - Extremities Exam Extremities Exam: Pedal Edema - Neurological Exam Neurological Exam: Alert, Awake, Oriented x3 Assessment and Plan - Assessment and Plan (Free Text) Assessment: 86 y/o F with PMH of CHF with EF of 8% and AICD placement on chronic IV milrinone therapy (for past 2.5 years), A-fib on Coumadin, hypothyroidism, and gout admitted for worsening of lower extremity edema. Transferred to TCU for deconditioning. Plan: 1. CHF exacerbation - UA neg for infection, trops 0.06->0.06->0.07 (same as prev admissions). - Received 40 mg IV lasix in ED. - Last echo 03/2016 showed EF 8%. Severe MR/TR. four chamber enlargement, severe lv systolic dysfxn - cont home IV milrinone, BB, ARB, DIgoxin, Cozaar, Aldactone - Strict I&Os - Daily weights - Fluid restriction (1200ml) - HHD, 2 gm Na, <1200 ml fluids -Hold lasix IV, switched to Lasix 40 PO due to blood pressure being 96/46 - Cardio consulted Dr Alcantara. - Recs Appreciated -Added Zaroxolyn - Cont to monitor leg swelling and lung exam. 2. Elevated Cr: 2/2 likely CKD - baseline Cr 1.3-1.4, Cr today was 1.5 - Cont to monitor - Avoid nephrotoxic drugs/contrast Hypomagnesemia and Hypokalemia: -Monitor A-fib: -Rate controlled -C/w Warfarin 3 mg daily, INR 2.52 -Therapeutic today -INR daily Hypothyroidism: -Continue Synthroid Gout: -Continue Colchicine PPX -Warfarin -Protonix <Marleny Man - Last Filed: 03/09/17 17:23> Objective - Vital Signs/Intake and Output Vital Signs (last 24 hours): Temp Pulse Resp BP Pulse Ox 98 F 70 20 96/46 L 99 03/09/17 06:00 03/09/17 12:03 03/09/17 06:00 03/09/17 06:14 03/09/17 12:03 - Medications Medications: Current Medications Colchicine (Colocrys) 0.6 mg PO DAILY YAA PRN Reason: Protocol Last Admin: 03/09/17 11:00 Dose: 0.6 mg Digoxin (Lanoxin) 0.125 mg PO 1400 YAA PRN Reason: Protocol Last Admin: 03/09/17 15:00 Dose: 0.125 mg Furosemide (Lasix) 40 mg PO DAILY YAA Guaifenesin/Dextromethorphan (Robitussin Dm) 5 ml PO Q4H PRN PRN Reason: Cough Last Admin: 03/06/17 13:05 Dose: 5 ml Milrinone Lactate/Dextrose (Primacor 20mg/100ml D5w) 100 mls @ 5.985 mls/hr IV .[id number] PRN; Protocol; 0.28 MCG/KG/MIN PRN Reason: TITRATE PER MD ORDER Last Admin: 03/08/17 21:53 Dose: 0.28 mcg/kg/min, 5.985 mls/hr Isosorbide Mononitrate (Imdur) 60 mg PO 0600 YAA PRN Reason: Protocol Last Admin: 03/09/17 06:13 Dose: 60 mg Levothyroxine Sodium (Synthroid) 112 mcg PO 0600 YAA PRN Reason: Protocol Last Admin: 03/09/17 06:13 Dose: 112 mcg Losartan Potassium (Cozaar) 100 mg PO DAILY YAA PRN Reason: Protocol Last Admin: 03/09/17 10:43 Dose: Not Given Pantoprazole Sodium (Protonix Ec Tab) 40 mg PO 0600,1600 YAA PRN Reason: Protocol Last Admin: 03/09/17 06:13 Dose: 40 mg Potassium Chloride (Klor-Con 10) 30 meq PO 0800 YAA PRN Reason: Protocol Last Admin: 03/09/17 08:42 Dose: 30 meq Spironolactone (Aldactone) 25 mg PO BID YAA PRN Reason: Protocol Last Admin: 03/09/17 10:42 Dose: 25 mg Warfarin Sodium (Coumadin) 3 mg PO 1800 YAA PRN Reason: Protocol Last Admin: 03/08/17 17:45 Dose: 3 mg - Labs Labs: 03/07/17 08:00 03/09/17 06:00 PT 28.3 SECONDS (9.4-12.5) H 03/09/17 06:00 INR 2.52 (0.93-1.08) H 03/09/17 06:00 APTT 33.1 Seconds (25.1-36.5) 03/05/17 07:00 Attending/Attestation - Attestation I have personally seen and examined this patient.: Yes I have fully participated in the care of the patient.: Yes I have reviewed all pertinent clinical information, including history, physical exam and plan: Yes Notes (Text): 03/09/17 17:22 86 year old female with past medical history of systolic CHF, s/p AICD, atrial fibrillation on anticoagulation, CKD and hypothyroidism who was admitted for acute on chronic CHF exacerbation. She is on lasix, digoxin, imdur, cozaar, spironalactone and milrinonone. Lasix is switched to po today. She is on coumadin as well for afib. Continue to monitor creatinine closely for CKD. Continue with physical therapy while in TCU. Patient is DNR/DNI. Marleny Man MD Hospitalist.
[2017-03-09] MEDS: Digoxin 125 mcg (0.125 mg) Tab PO SCH (15:00)
[2017-03-09] MEDS: Milrinone 20mg/100ml D5W 100 ML IV PRN (21:53)
--- NOTE | 2017-03-09 22:56 | PN ---
DATE: 03/09/2017 SUBJECTIVE: Patient is seen sitting in a chair on telemetry. She is currently comfortable. Her leg edema is much improved. She continues to have exertional dyspnea. MEDICATIONS: Her current medications include IV milrinone, Aldactone 25 mg b.i.d., colchicine, Coumadin, Cozaar 100 mg daily, Imdur 60 mg daily, digoxin 0.125 mg daily, Lasix 40 mg daily, and potassium supplement as well as Synthroid. PHYSICAL EXAMINATION: GENERAL: She is very elderly woman, appears comfortable at the present time. VITAL SIGNS: Blood pressure is 106/46 with a pulse of 70, respirations are 16. She is afebrile. HEENT: No JVD. CHEST: Diminished breath sounds at the bases. HEART: PMI displaced laterally with very soft tones noted. ABDOMEN: Soft and nontender with normoactive bowel sounds. EXTREMITIES: Trace angle edema. DIAGNOSTIC DATA: Potassium is 4.5, BUN and creatinine 31 and 1.5. INR is 2.5. IMPRESSION: 1. Severe chronic congestive heart failure, clinically improved. 2. Severe systolic dysfunction with class 3 heart failure. 3. Severe mitral and tricuspid regurgitation. 4. Paroxysmal atrial fibrillation. RECOMMENDATIONS: Current medications should be continued. Increased activity is advised as able. Her overall prognosis remains poor. It is her hope that she will be able to travel to [place], [place], to live with her daughter upon discharge. We will be happy to follow along as needed. Dino Thompson MD
[2017-03-10] MEDS: Levothyroxine 112 MCG TAB PO SCH (05:44)
[2017-03-10] MEDS: Pantoprazole 40 mg EC Tab PO SCH ×2 (05:44→16:37)
[2017-03-10 08:23] LABS: INR 2.28 (0.93-1.08); PROTHROMBIN TIME 26.7 SECONDS (9.4-12.5)
[2017-03-10] MEDS: Potassium Chloride 10 mEq ER Tab PO SCH (08:41)
[2017-03-10] MEDS: Digoxin 125 mcg (0.125 mg) Tab PO SCH (14:36)
[2017-03-10] MEDS: Milrinone 20mg/100ml D5W 100 ML IV PRN (17:37)
[2017-03-10 17:44] VITALS: PULSE 70
[2017-03-11] MEDS: Levothyroxine 112 MCG TAB PO SCH (05:18)
[2017-03-11] MEDS: Pantoprazole 40 mg EC Tab PO SCH ×2 (05:18→15:32)
[2017-03-11 07:59] LABS: BASO # 0.07 K/mm3 (0.0-2.0); EOS # 0.4 (0.0-0.7); EOS % 5.7 % (1.5-5.0); GRAN # 3.42 (1.4-6.5); GRAN % 47.7 % (50.0-68.0); HEMOGLOBIN 10.8 g/dL (12.0-16.0); LYMPH # 2.7 (1.2-3.4); LYMPH % 37.9 % (22.0-35.0); MEAN CELL VOLUME 89.8 fl (80.0-105.0); MEAN CORPUSCULAR HGB CONC 32.3 g/dl (31.0-37.0); MEAN PLATELET VOLUME 10.1 fl (7.0-11.0); MONO # 0.6 (0.1-0.6); MONO % 7.7 % (1.0-6.0); RBC 3.72 10^6/uL (3.5-6.1); WHITE BLOOD COUNT 7.2 10^3/ul (4.5-11.0)
[2017-03-11 08:11] LABS: ALB/GLOB RATIO 0.9 (1.1-1.8); ALBUMIN 3.6 g/dL (3.0-4.8); CALCIUM 9.1 mg/dL (8.4-10.5)
[2017-03-11 08:12] LABS: PROTHROMBIN TIME 23.3 SECONDS (9.4-12.5)
[2017-03-11] MEDS: Potassium Chloride 10 mEq ER Tab PO SCH (08:35)
[2017-03-11] MEDS: Milrinone 20mg/100ml D5W 100 ML IV PRN (10:35)
--- NOTE | 2017-03-11 13:06 | CP.PCM.PN ---
<Estuardo Traore - Last Filed: 03/11/17 14:32> Subjective - Date & Time of Evaluation Date of Evaluation: 03/11/17 Time of Evaluation: 06:00 - Subjective Subjective: Patient was seen and evaluated at bedside. Patient was eating breakfast comfortably with no issues. She stated she is walking around well, swelling in legs has gone away and is breathing well. She said because of how she sleeps at night she has pain on her left side for which she was given tylenol for and improved. She denies any other complaints at this time. Objective - Vital Signs/Intake and Output Vital Signs (last 24 hours): Temp Pulse Resp BP Pulse Ox 97.6 F 70 20 116/51 L 98 03/11/17 06:00 03/11/17 06:00 03/11/17 06:00 03/11/17 10:37 03/11/17 06:00 Intake and Output: 03/11/17 03/11/17 06:59 18:59 Intake Total 100 Balance 100 - Medications Medications: Current Medications Acetaminophen (Tylenol 325mg Tab) 650 mg PO Q6H PRN PRN Reason: Pain, Mild (1-3) Last Admin: 03/10/17 22:33 Dose: 650 mg Colchicine (Colocrys) 0.6 mg PO DAILY YAA PRN Reason: Protocol Last Admin: 03/11/17 10:37 Dose: 0.6 mg Digoxin (Lanoxin) 0.125 mg PO 1400 YAA PRN Reason: Protocol Last Admin: 03/10/17 14:36 Dose: 0.125 mg Furosemide (Lasix) 40 mg PO BID YAA Last Admin: 03/11/17 10:37 Dose: 40 mg Guaifenesin/Dextromethorphan (Robitussin Dm) 5 ml PO Q4H PRN PRN Reason: Cough Last Admin: 03/06/17 13:05 Dose: 5 ml Milrinone Lactate/Dextrose (Primacor 20mg/100ml D5w) 100 mls @ 5.985 mls/hr IV .[id number] PRN; Protocol; 0.28 MCG/KG/MIN PRN Reason: TITRATE PER MD ORDER Last Admin: 03/11/17 10:35 Dose: 0.28 mcg/kg/min, 5.985 mls/hr Isosorbide Mononitrate (Imdur) 60 mg PO 0600 YAA PRN Reason: Protocol Last Admin: 03/11/17 05:18 Dose: 60 mg Levothyroxine Sodium (Synthroid) 112 mcg PO 0600 YAA PRN Reason: Protocol Last Admin: 03/11/17 05:18 Dose: 112 mcg Losartan Potassium (Cozaar) 100 mg PO DAILY YAA PRN Reason: Protocol Last Admin: 03/11/17 10:37 Dose: 100 mg Pantoprazole Sodium (Protonix Ec Tab) 40 mg PO 0600,1600 YAA PRN Reason: Protocol Last Admin: 03/11/17 05:18 Dose: 40 mg Potassium Chloride (Klor-Con 10) 30 meq PO 0800 YAA PRN Reason: Protocol Last Admin: 03/11/17 08:35 Dose: 30 meq Spironolactone (Aldactone) 25 mg PO BID YAA PRN Reason: Protocol Last Admin: 03/10/17 17:34 Dose: 25 mg Warfarin Sodium (Coumadin) 4 mg PO 1800 YAA PRN Reason: Protocol Last Admin: 03/10/17 17:35 Dose: 4 mg - Labs Labs: 03/11/17 07:50 03/11/17 07:50 PT 23.3 SECONDS (9.4-12.5) H 03/11/17 07:50 INR 2.00 (0.93-1.08) H 03/11/17 07:50 APTT 33.1 Seconds (25.1-36.5) 03/05/17 07:00 - Constitutional Appears: Well, Non-toxic, No Acute Distress - Head Exam Head Exam: ATRAUMATIC, NORMAL INSPECTION, NORMOCEPHALIC - Eye Exam Eye Exam: EOMI, Normal appearance Pupil Exam: NORMAL ACCOMODATION - ENT Exam ENT Exam: Mucous Membranes Moist, Normal Exam - Neck Exam Neck Exam: Full ROM, Normal Inspection - Respiratory Exam Respiratory Exam: Clear to Ausculation Bilateral, NORMAL BREATHING PATTERN - Cardiovascular Exam Cardiovascular Exam: REGULAR RHYTHM, +S1, +S2 - GI/Abdominal Exam GI & Abdominal Exam: Soft - Extremities Exam Extremities Exam: Normal Capillary Refill. absent: Pedal Edema - Back Exam Back Exam: absent: CVA tenderness (L), CVA tenderness (R) - Neurological Exam Neurological Exam: Alert, Awake, Oriented x3 - Psychiatric Exam Psychiatric exam: Normal Mood Assessment and Plan - Assessment and Plan (Free Text) Plan: 1. CHF exacerbation - UA neg for infection, trops 0.06->0.06->0.07 (same as prev admissions). - Received 40 mg IV lasix in ED. - Last echo 03/2016 showed EF 8%. Severe MR/TR. four chamber enlargement, severe lv systolic dysfxn - cont home IV milrinone, BB, ARB, DIgoxin, Cozaar, Aldactone - Strict I&Os - Daily weights - Fluid restriction (1200ml) - HHD, 2 gm Na, <1200 ml fluids -Lasix PO BID 40 - Cardio consulted Dr Alcantara. - Recs Appreciated -Added Zaroxolyn - Cont to monitor leg swelling and lung exam. 2. Elevated Cr: 2/2 likely CKD - baseline Cr 1.3-1.4, Cr today was 1.4 - Cont to monitor - Avoid nephrotoxic drugs/contrast Hypomagnesemia and Hypokalemia: -Monitor A-fib: -Rate controlled -C/w Warfarin 4 mg daily, INR 2.0 -Therapeutic today -INR daily Hypothyroidism: -Continue Synthroid Gout: -Continue Colchicine PPX -Warfarin-Protonix <Marleny Man A - Last Filed: 03/11/17 14:54> Objective - Vital Signs/Intake and Output Vital Signs (last 24 hours): Temp Pulse Resp BP Pulse Ox 97.6 F 70 20 116/51 L 98 03/11/17 06:00 03/11/17 06:00 03/11/17 06:00 03/11/17 10:37 03/11/17 06:00 Intake and Output: 03/11/17 03/11/17 06:59 18:59 Intake Total 100 Balance 100 - Medications Medications: Current Medications Acetaminophen (Tylenol 325mg Tab) 650 mg PO Q6H PRN PRN Reason: Pain, Mild (1-3) Last Admin: 03/10/17 22:33 Dose: 650 mg Colchicine (Colocrys) 0.6 mg PO DAILY YAA PRN Reason: Protocol Last Admin: 03/11/17 10:37 Dose: 0.6 mg Digoxin (Lanoxin) 0.125 mg PO 1400 YAA PRN Reason: Protocol Last Admin: 03/10/17 14:36 Dose: 0.125 mg Furosemide (Lasix) 40 mg PO BID YAA Last Admin: 03/11/17 10:37 Dose: 40 mg Guaifenesin/Dextromethorphan (Robitussin Dm) 5 ml PO Q4H PRN PRN Reason: Cough Last Admin: 03/06/17 13:05 Dose: 5 ml Milrinone Lactate/Dextrose (Primacor 20mg/100ml D5w) 100 mls @ 5.985 mls/hr IV .[id number] PRN; Protocol; 0.28 MCG/KG/MIN PRN Reason: TITRATE PER MD ORDER Last Admin: 03/11/17 10:35 Dose: 0.28 mcg/kg/min, 5.985 mls/hr Isosorbide Mononitrate (Imdur) 60 mg PO 0600 YAA PRN Reason: Protocol Last Admin: 03/11/17 05:18 Dose: 60 mg Levothyroxine Sodium (Synthroid) 112 mcg PO 0600 YAA PRN Reason: Protocol Last Admin: 03/11/17 05:18 Dose: 112 mcg Losartan Potassium (Cozaar) 100 mg PO DAILY YAA PRN Reason: Protocol Last Admin: 03/11/17 10:37 Dose: 100 mg Pantoprazole Sodium (Protonix Ec Tab) 40 mg PO 0600,1600 YAA PRN Reason: Protocol Last Admin: 03/11/17 05:18 Dose: 40 mg Potassium Chloride (Klor-Con 10) 30 meq PO 0800 YAA PRN Reason: Protocol Last Admin: 03/11/17 08:35 Dose: 30 meq Spironolactone (Aldactone) 25 mg PO BID YAA PRN Reason: Protocol Last Admin: 03/10/17 17:34 Dose: 25 mg Warfarin Sodium (Coumadin) 4 mg PO 1800 [facility] PRN Reason: Protocol Last Admin: 03/10/17 17:35 Dose: 4 mg - Labs Labs: 03/11/17 07:50 03/11/17 07:50 PT 23.3 SECONDS (9.4-12.5) H 03/11/17 07:50 INR 2.00 (0.93-1.08) H 03/11/17 07:50 APTT 33.1 Seconds (25.1-36.5) 03/05/17 07:00 Attending/Attestation - Attestation I have personally seen and examined this patient.: Yes I have fully participated in the care of the patient.: Yes I have reviewed all pertinent clinical information, including history, physical exam and plan: Yes Notes (Text): 03/11/17 14:54 86 year old female with past medical history of systolic CHF, s/p AICD, atrial fibrillation on anticoagulation, CKD and hypothyroidism who was admitted for acute on chronic CHF exacerbation. She is on lasix, digoxin, imdur, cozaar, spironalactone and milrinone. She is on coumadin as well for afib. Continue to monitor creatinine closely for CKD. Continue with physical therapy while in TCU. Patient is DNR/DNI. Possible d/c planning in 1-2 days. Marleny Man MD Hospitalist.
[2017-03-11] MEDS: Digoxin 125 mcg (0.125 mg) Tab PO SCH (14:32)
[2017-03-12] MEDS: Milrinone 20mg/100ml D5W 100 ML IV PRN (02:16)
[2017-03-12] MEDS: Pantoprazole 40 mg EC Tab PO SCH (05:50)
[2017-03-12] MEDS: Levothyroxine 112 MCG TAB PO SCH (05:50)
[2017-03-12] MEDS: Potassium Chloride 10 mEq ER Tab PO SCH (08:34)
--- NOTE | 2017-03-12 09:04 | CP.PCM.PN ---
Subjective - Date & Time of Evaluation Date of Evaluation: 03/12/17 Time of Evaluation: 07:00 - Subjective Subjective: Stable on TCU. No CP. Still IVY with exertions. No edema now. V/S noted. PE Lungs: clear Cor.: S1S2, sys. murmur Abd.: soft Ext.: no edema Neuro.: alert Labs 03/11 noted: K== 5.0, INR= 2.0 Objective - Vital Signs/Intake and Output Vital Signs (last 24 hours): Temp Pulse Resp BP Pulse Ox 97.2 F L 69 24 106/51 L 97 03/12/17 06:00 03/12/17 06:00 03/12/17 06:00 03/12/17 06:00 03/12/17 06:00 Intake and Output: 03/12/17 03/12/17 06:59 18:59 Intake Total 100 Balance 100 - Medications Medications: Current Medications Acetaminophen (Tylenol 325mg Tab) 650 mg PO Q6H PRN PRN Reason: Pain, Mild (1-3) Last Admin: 03/11/17 19:41 Dose: 650 mg Colchicine (Colocrys) 0.6 mg PO DAILY [facility] PRN Reason: Protocol Last Admin: 03/11/17 10:37 Dose: 0.6 mg Digoxin (Lanoxin) 0.125 mg PO 1400 [facility] PRN Reason: Protocol Last Admin: 03/11/17 14:32 Dose: 0.125 mg Furosemide (Lasix) 40 mg PO BID YAA Last Admin: 03/11/17 18:29 Dose: 40 mg Guaifenesin/Dextromethorphan (Robitussin Dm) 5 ml PO Q4H PRN PRN Reason: Cough Last Admin: 03/06/17 13:05 Dose: 5 ml Milrinone Lactate/Dextrose (Primacor 20mg/100ml D5w) 100 mls @ 5.985 mls/hr IV .[id number] PRN; Protocol; 0.28 MCG/KG/MIN PRN Reason: TITRATE PER MD ORDER Last Admin: 03/12/17 02:16 Dose: 0.28 mcg/kg/min, 5.985 mls/hr Isosorbide Mononitrate (Imdur) 60 mg PO 0600 [facility] PRN Reason: Protocol Last Admin: 03/12/17 05:50 Dose: 60 mg Levothyroxine Sodium (Synthroid) 112 mcg PO 0600 YAA PRN Reason: Protocol Last Admin: 03/12/17 05:50 Dose: 112 mcg Losartan Potassium (Cozaar) 100 mg PO DAILY YAA PRN Reason: Protocol Last Admin: 03/11/17 10:37 Dose: 100 mg Pantoprazole Sodium (Protonix Ec Tab) 40 mg PO 0600,1600 YAA PRN Reason: Protocol Last Admin: 03/12/17 05:50 Dose: 40 mg Potassium Chloride (Klor-Con 10) 30 meq PO 0800 YAA PRN Reason: Protocol Last Admin: 03/12/17 08:34 Dose: 30 meq Spironolactone (Aldactone) 25 mg PO BID YAA PRN Reason: Protocol Last Admin: 03/11/17 18:29 Dose: 25 mg Warfarin Sodium (Coumadin) 4 mg PO 1800 YAA PRN Reason: Protocol Last Admin: 03/11/17 18:29 Dose: 4 mg - Labs Labs: 03/11/17 07:50 03/11/17 07:50 PT 23.3 SECONDS (9.4-12.5) H 03/11/17 07:50 INR 2.00 (0.93-1.08) H 03/11/17 07:50 APTT 33.1 Seconds (25.1-36.5) 03/05/17 07:00 Assessment and Plan - Assessment and Plan (Free Text) Assessment: Dyspnea on exertion Edema, resolved CHF CCM lV, on milrinone infusion at home Echo: Severe LVD, MR, TR and PH ICD CVA Gout Hypothyroidism GB, back and Hernia Surgeries Plan: Hold//D/C KCL Check BMP today. Continue home milrinone infusion and weekly labs: BMP and INR's Home later today if labs OK.
[2017-03-12 10:58] VITALS: BP 115/62; PULSE 70; RESP 20; TEMP 97.4; O2SAT 99
[2017-03-12 11:31] LABS: CALCIUM 9.4 mg/dL (8.4-10.5)
--- NOTE | 2017-03-12 14:36 | CP.PCM.DIS ---
<Baldo Finley - Last Filed: 03/12/17 14:26> Provider - Provider Date of Admission: 03/04/17 13:07 Attending physician: Marleny Man MD Primary care physician: Boaz Green MD Time Spent in preparation of Discharge (in minutes): 45 Diagnosis - Discharge Diagnosis (1) Congestive heart failure Status: Chronic Priority: High (2) Pedal edema Status: Chronic Priority: Medium (3) Atrial fibrillation Status: Chronic Priority: Medium (4) History of hypothyroidism Status: Chronic Priority: Medium (5) Gout Status: Chronic Priority: Medium Hospital Course - Lab Results Lab Results: Most Recent Lab Values WBC 7.2 10^3/ul (4.5-11.0) D 03/11/17 07:50 RBC 3.72 10^6/uL (3.5-6.1) 03/11/17 07:50 Hgb 10.8 g/dL (12.0-16.0) L 03/11/17 07:50 Hct 33.4 % (36.0-48.0) L 03/11/17 07:50 MCV 89.8 fl (80.0-105.0) 03/11/17 07:50 MCH 29.0 pg (25.0-35.0) 03/11/17 07:50 MCHC 32.3 g/dl (31.0-37.0) 03/11/17 07:50 RDW 15.0 % (11.5-14.5) H 03/11/17 07:50 Plt Count 188 10^3/uL (120.0-450.0) 03/11/17 07:50 MPV 10.1 fl (7.0-11.0) 03/11/17 07:50 Gran % 47.7 % (50.0-68.0) L 03/11/17 07:50 Lymph % (Auto) 37.9 % (22.0-35.0) H 03/11/17 07:50 [place] % (Auto) 7.7 % (1.0-6.0) H 03/11/17 07:50 Eos % (Auto) 5.7 % (1.5-5.0) H 03/11/17 07:50 Baso % (Auto) 1.0 % (0.0-3.0) 03/11/17 07:50 Gran # 3.42 (1.4-6.5) 03/11/17 07:50 Lymph # 2.7 (1.2-3.4) 03/11/17 07:50 [place] # 0.6 (0.1-0.6) 03/11/17 07:50 Eos # 0.4 (0.0-0.7) 03/11/17 07:50 Baso # 0.07 K/mm3 (0.0-2.0) 03/11/17 07:50 PT 23.3 SECONDS (9.4-12.5) H 03/11/17 07:50 INR 2.00 (0.93-1.08) H 03/11/17 07:50 APTT 33.1 Seconds (25.1-36.5) 03/05/17 07:00 Sodium 132 mmol/L (132-148) 03/12/17 11:00 Potassium 5.0 mmol/L (3.6-5.0) 03/12/17 11:00 Chloride 96 mmol/L (98-107) L 03/12/17 11:00 Carbon Dioxide 26 mmol/L (21-33) 03/12/17 11:00 Anion Gap 15 (10-20) 03/12/17 11:00 BUN 35 mg/dL (7-21) H 03/12/17 11:00 Creatinine 1.4 mg/dl (0.7-1.2) H 03/12/17 11:00 Est GFR ( Amer) 43 03/12/17 11:00 Est GFR (Non-Af Amer) 36 03/12/17 11:00 Random Glucose 136 mg/dL (70-110) H 03/12/17 11:00 Calcium 9.4 mg/dL (8.4-10.5) 03/12/17 11:00 Phosphorus 2.8 mg/dL (2.5-4.5) 03/05/17 07:00 Magnesium 1.8 mg/dL (1.7-2.2) 03/05/17 07:00 Total Bilirubin 0.8 mg/dL (0.2-1.3) 03/11/17 07:50 AST 39 U/L (14-36) H 03/11/17 07:50 ALT 36 U/L (7-56) 03/11/17 07:50 Alkaline Phosphatase 110 U/L (38-126) 03/11/17 07:50 Total Protein 7.3 g/dL (5.8-8.3) 03/11/17 07:50 Albumin 3.6 g/dL (3.0-4.8) 03/11/17 07:50 Globulin 3.8 gm/dL 03/11/17 07:50 Albumin/Globulin Ratio 0.9 (1.1-1.8) L 03/11/17 07:50 - Hospital Course Hospital Course: Patient is a 86 y/o female with a PMHx of CHF with EF of 8% and AICD placement on chronic IV milrinone therapy (for past 2.5 years), A-fib on Coumadin, hypothyroidism, and gout who was originally admitted for worsening of lower extremity edema. With the use of physical examinations, lab work, and imaging the patient was diagnosed with and treated for an CHF exacerbation in addition to her chronic conditions. During her hospital stay the patient was seen by cardiology and their recommendations were both appreciated and utilized in the care for this patient. During their hospital stay the patient underwent physical rehabilitation and their recommendations were reviewed, appreciated, and utilized in the management of the patients clinical course. Patient was treated with inotropic agents, diuretics, antihypertensives, anticoagulants amongst other empiric/therapeutic medications. At this time the patient is medically stable for discharge. Patient understands and appreciates discharge plan. Patient instructed to follow up with primary care physician and Dr. Alcantara within three to five days from discharge. Furthermore, the patient is instructed to take medications as prescribed and to return to emergency room for evaluation of intractable headache, fever, chills, dizziness, chest pain, shortness of breath, abdominal pain, nausea, vomiting, diarrhea, constipation, and urinary symptoms. This is a brief summary of the patients hospital course. Please see patient chart for full details. Discharge Exam - Head Exam Head Exam: ATRAUMATIC, NORMAL INSPECTION, NORMOCEPHALIC - Additional Findings Additional findings: - Constitutional Appears: Well, Non-toxic, No Acute Distress - Head Exam Head Exam: ATRAUMATIC, NORMAL INSPECTION, NORMOCEPHALIC - Eye Exam Eye Exam: EOMI, Normal appearance Pupil Exam: NORMAL ACCOMODATION - ENT Exam ENT Exam: Mucous Membranes Moist, Normal Exam - Neck Exam Neck Exam: Full ROM, Normal Inspection - Respiratory Exam Respiratory Exam: Clear to Ausculation Bilateral, NORMAL BREATHING PATTERN - Cardiovascular Exam Cardiovascular Exam: REGULAR RHYTHM, +S1, +S2 - GI/Abdominal Exam GI & Abdominal Exam: Soft - Extremities Exam Extremities Exam: Normal Capillary Refill. absent: Pedal Edema - Neurological Exam Neurological Exam: Alert, Awake, Oriented x3 - Psychiatric Exam Psychiatric exam: Normal Mood, normal affect Discharge Plan - Discharge Medications Prescriptions: Digoxin [Lanoxin] 0.125 mg PO 1400 #30 tab Furosemide [Lasix] 40 mg PO BID #60 tab Isosorbide Mononitrate [Imdur] 60 mg PO 0600 #30 tab Levothyroxine [Synthroid] 112 mcg PO 0600 #30 tab Losartan [Cozaar] 100 mg PO DAILY #30 tab Spironolactone [Aldactone] 25 mg PO BID #60 tab Warfarin [Coumadin] 4 mg PO 1800 #6 tab - Follow Up Plan Condition: GOOD Disposition: HOME/ ROUTINE Instructions: Heart Failure (DC), Pacemaker (DC), Gout (DC), Cataracts (GEN), Pulmonary Arterial Hypertension (DC), Stroke (DC) Additional Instructions: Patient Instructions: 1. Take medications as prescribed. - do not take potassium supplements until you repeat outpatient BMP and follow up with cardiology and PMD 2. Follow up with PMD and Dr. Alcantara outpatient on 03/14/17. 3. Return to the emergency room for evaluation of intractable headache, fever, chills, dizziness, chest pain, shortness of breath, abdominal pain, nausea, vomiting, diarrhea, constipation, and urinary symptoms Referrals: Juan Jose Alcantara MD [Staff Provider] - Boaz Green MD [Primary Care Provider] - <Marleny Man - Last Filed: 03/12/17 15:05> Provider - Provider Date of Admission: 03/04/17 13:07 Attending physician: Marleny Man MD Primary care physician: Boaz Green MD Hospital Course - Lab Results Lab Results: Most Recent Lab Values WBC 7.2 10^3/ul (4.5-11.0) D 03/11/17 07:50 RBC 3.72 10^6/uL (3.5-6.1) 03/11/17 07:50 Hgb 10.8 g/dL (12.0-16.0) L 03/11/17 07:50 Hct 33.4 % (36.0-48.0) L 03/11/17 07:50 MCV 89.8 fl (80.0-105.0) 03/11/17 07:50 MCH 29.0 pg (25.0-35.0) 03/11/17 07:50 MCHC 32.3 g/dl (31.0-37.0) 03/11/17 07:50 RDW 15.0 % (11.5-14.5) H 03/11/17 07:50 Plt Count 188 10^3/uL (120.0-450.0) 03/11/17 07:50 MPV 10.1 fl (7.0-11.0) 03/11/17 07:50 Gran % 47.7 % (50.0-68.0) L 03/11/17 07:50 Lymph % (Auto) 37.9 % (22.0-35.0) H 03/11/17 07:50 [place] % (Auto) 7.7 % (1.0-6.0) H 03/11/17 07:50 Eos % (Auto) 5.7 % (1.5-5.0) H 03/11/17 07:50 Baso % (Auto) 1.0 % (0.0-3.0) 03/11/17 07:50 Gran # 3.42 (1.4-6.5) 03/11/17 07:50 Lymph # 2.7 (1.2-3.4) 03/11/17 07:50 [place] # 0.6 (0.1-0.6) 03/11/17 07:50 Eos # 0.4 (0.0-0.7) 03/11/17 07:50 Baso # 0.07 K/mm3 (0.0-2.0) 03/11/17 07:50 PT 23.3 SECONDS (9.4-12.5) H 03/11/17 07:50 INR 2.00 (0.93-1.08) H 03/11/17 07:50 APTT 33.1 Seconds (25.1-36.5) 03/05/17 07:00 Sodium 132 mmol/L (132-148) 03/12/17 11:00 Potassium 5.0 mmol/L (3.6-5.0) 03/12/17 11:00 Chloride 96 mmol/L (98-107) L 03/12/17 11:00 Carbon Dioxide 26 mmol/L (21-33) 03/12/17 11:00 Anion Gap 15 (10-20) 03/12/17 11:00 BUN 35 mg/dL (7-21) H 03/12/17 11:00 Creatinine 1.4 mg/dl (0.7-1.2) H 03/12/17 11:00 Est GFR ( Amer) 43 03/12/17 11:00 Est GFR (Non-Af Amer) 36 03/12/17 11:00 Random Glucose 136 mg/dL (70-110) H 03/12/17 11:00 Calcium 9.4 mg/dL (8.4-10.5) 03/12/17 11:00 Phosphorus 2.8 mg/dL (2.5-4.5) 03/05/17 07:00 Magnesium 1.8 mg/dL (1.7-2.2) 03/05/17 07:00 Total Bilirubin 0.8 mg/dL (0.2-1.3) 03/11/17 07:50 AST 39 U/L (14-36) H 03/11/17 07:50 ALT 36 U/L (7-56) 03/11/17 07:50 Alkaline Phosphatase 110 U/L (38-126) 03/11/17 07:50 Total Protein 7.3 g/dL (5.8-8.3) 03/11/17 07:50 Albumin 3.6 g/dL (3.0-4.8) 03/11/17 07:50 Globulin 3.8 gm/dL 03/11/17 07:50 Albumin/Globulin Ratio 0.9 (1.1-1.8) L 03/11/17 07:50 Attending/Attestation - Attestation I have personally seen and examined this patient.: Yes I have fully participated in the care of the patient.: Yes I have reviewed all pertinent clinical information, including history, physical exam and plan: Yes Notes (Text): 03/12/17 15:04 86 year old female with past medical history of systolic CHF, s/p AICD, atrial fibrillation on anticoagulation, CKD and hypothyroidism who was admitted for acute on chronic CHF exacerbation. She was on lasix, digoxin, imdur, cozaar, spironalactone and milrinone. She was also on coumadin for afib. She was tolerated physical therapy well while in TCU. She is discharged home today to follow up with her pmd and cardiology. Monitor PT/INR and BMP (K/Cr) with pmd/supply requirements officer. Marleny Man MD Hospitalist.
[2017-03-12] MEDS: Digoxin 125 mcg (0.125 mg) Tab PO SCH (16:32)
== END 2017-03-12 16:45 | disposition home or self-care (01) | DRG 292 ==
LOC: TRCU 13:07
PROVIDERS: ADMIT Internal Medicine; ATTEND Internal Medicine
PROC: F07Z9FZ Gait Training/Functional Ambulation Treatment using Assistive, Adaptive, Supportive or Protective Equipment (ICD-10-PCS; principal; 2017-03-05)
PROC: F07M6ZZ Therapeutic Exercise Treatment of Musculoskeletal System - Whole Body (ICD-10-PCS; 2017-03-05)
PROC: F08Z2ZZ Grooming/Personal Hygiene Treatment (ICD-10-PCS; 2017-03-07)
PROC: F08Z1ZZ Dressing Techniques Treatment (ICD-10-PCS; 2017-03-07)
DX: I50.23 Acute on chronic systolic (congestive) heart failure (principal); I42.0 Dilated cardiomyopathy; I48.0 Paroxysmal atrial fibrillation; E83.42 Hypomagnesemia; I08.1 Rheumatic disorders of both mitral and tricuspid valves; E03.9 Hypothyroidism, unspecified; Z86.73 Personal history of transient ischemic attack (TIA), and cerebral infarction without residual deficits; J44.9 Chronic obstructive pulmonary disease, unspecified; M10.9 Gout, unspecified; N18.9 Chronic kidney disease, unspecified; Z66 Do not resuscitate; Z79.01 Long term (current) use of anticoagulants; Z87.891 Personal history of nicotine dependence; Z90.49 Acquired absence of other specified parts of digestive tract; Z95.810 Presence of automatic (implantable) cardiac defibrillator; E87.6 Hypokalemia

== ENCOUNTER 2017-04-18 11:56 | Inpatient (IN) | payer MEDICARE, OTHER ==
--- NOTE | 2017-04-18 14:12 | ED PDOC ---
Arrival/HPI - General Chief Complaint: Lower Extremity Problem/Injury Time Seen by Provider: 04/18/17 13:55 Historian: Patient - History of Present Illness Narrative History of Present Illness (Text): 04/18/17 14:00 Britt Barlow is an 86 year old female, whose past medical history includes CHF on chronic milrinone drip, who presents to the emergency department complaining of shortness of breath, worsening LE edema, and chest tightness today. No other complaints offered at this time. Symptom Onset: Gradual Symptom Course: Unchanged Activities at Onset: Light Context: Home Past Medical History - Provider Review Nursing Documentation Reviewed: Yes - Infectious Disease Hx of Infectious Diseases: None - Tetanus Immunization Tetanus Immunization: Unknown - Cardiac Hx Cardiac Disorders: Yes Hx Congestive Heart Failure: Yes (EF 8%) - Pulmonary Hx Chronic Obstructive Pulmonary Disease (COPD): Yes - Neurological HX Cerebrovascular Accident: Yes - HEENT Hx Cataracts: Yes - Renal Hx Renal Disorder: No - Endocrine/Metabolic Hx Hypothyroidism: Yes - Hematological/Oncological Hx Blood Disorders: No - Integumentary Hx Dermatological Disorder: Yes (b/l pedal edema) - Musculoskeletal/Rheumatological Hx Falls: No - Gastrointestinal Hx Gastrointestinal Disorders: Yes (CHOLECYSTECTOMY,HERNIORHAPPHY) - Genitourinary/Gynecological Hx Reproductive Disorders: No - Psychiatric Hx Emotional Abuse: No Hx Physical Abuse: No Hx Substance Use: No - Surgical History Hx Cholecystectomy: Yes - Anesthesia Hx Anesthesia: Yes Hx Anesthesia Reactions: No Hx Malignant Hyperthermia: No - Suicidal Assessment Feels Threatened In Home Enviroment: No Family/Social History - Physician Review Nursing Documentation Reviewed: Yes Family/Social History: No Known Family HX Smoking Status: Former Smoker Hx Alcohol Use: No Hx Substance Use: No Allergies/Home Meds Allergies/Adverse Reactions: Allergies codeine Allergy (Verified 03/01/17 15:05) SHORTNESS OF BREATH Penicillins Allergy (Verified 03/01/17 15:05) RASH Review of Systems - Physician Review All systems were reviewed & negative as marked: Yes - Review of Systems Constitutional: absent: Fevers, Night Sweats Eyes: absent: Vision Changes ENT: absent: Hearing Changes Respiratory: SOB Cardiovascular: Chest Pain (Chest Tightness) Gastrointestinal: absent: Abdominal Pain Genitourinary Female: absent: Dysuria, Frequency Musculoskeletal: Other (Worsening LE edema). absent: Arthralgias Skin: absent: Rash, Pruritis Neurological: absent: Headache Endocrine: absent: Diaphoresis Hemo/Lymphatic: absent: Adenopathy Physical Exam Vital Signs Reviewed: Yes Vital Signs Temp Pulse Resp BP Pulse Ox 04/18/17 20:21 126/66 04/18/17 19:02 70 18 125/54 L 99 04/18/17 17:01 70 18 124/71 100 04/18/17 15:00 70 18 120/72 100 04/18/17 13:45 97.7 F 71 18 115/62 95 Temperature: Afebrile Blood Pressure: Normal Pulse: Regular Respiratory Rate: Normal Appearance: Positive for: Well-Appearing, Non-Toxic, Comfortable Pain Distress: None Mental Status: Positive for: Alert and Oriented X 3 - Systems Exam Head: Present: Atraumatic, Normocephalic Pupils: Present: PERRL Extroacular Muscles: Present: EOMI Conjunctiva: Present: Normal Mouth: Present: Moist Mucous Membranes Neck: Present: Normal Range of Motion Respiratory/Chest: Present: Clear to Auscultation, Good Air Exchange. No: Respiratory Distress, Accessory Muscle Use Cardiovascular: Present: Regular Rate and Rhythm, Normal S1, S2. No: Murmurs Abdomen: Present: Normal Bowel Sounds. No: Tenderness, Distention, Peritoneal Signs Back: Present: Normal Inspection Upper Extremity: Present: Normal Inspection. No: Cyanosis, Edema Lower Extremity: Present: Normal Inspection. No: Edema Neurological: Present: GCS=15, CN II-XII Intact, Speech Normal Skin: Present: Warm, Dry, Normal Color. No: Rashes Psychiatric: Present: Alert, Oriented x 3, Normal Insight, Normal Concentration Medical Decision Making ED Course and Treatment: 04/18/17 14:24 Impression: 86 year old female complaining of shortness of breath, worsening LE edema, and chest tightness today. Differential Diagnosis included but are not limited to: Plan: -- Chest X-ray -- Labs -- Aspirin -- Reassess and disposition Prior Visits: Notes and results from previous visits were reviewed. Patient was last seen in the emergency department on 03/01/17 for worsening lower leg swelling and increasing shortness of breath. Patient was admitted to hospitalist care for further evaluation. Progress Notes: 04/18/17 15:44 Cxray shows "Persistent moderate cardiomegaly and question of small right pleural effusion". EKG shows paced rhythm at 70bpm. Trop x 1 negative. BNP elevated. lasix ordered. Tele observation for chf 04/18/17 21:00 - Lab Interpretations Lab Results: 04/18/17 17:30 04/18/17 17:30 Lab Results 04/18/17 17:30: Sodium 136, Potassium 4.4, Chloride 96 L, Carbon Dioxide 30, Anion Gap 15, BUN 33 H, Creatinine 1.3 H, Est GFR ( Amer) 47, Est GFR ( Non-Af Amer) 39, Random Glucose 90, Calcium 10.3, Phosphorus 3.7, Magnesium 2.1 , Total Bilirubin 0.9, AST 38 H, ALT 36, Alkaline Phosphatase 126, Total Creatine Kinase 30 L, Troponin I 0.06, NT-Pro-B Natriuret Pep 5500 H, Total Protein 7.2, Albumin 3.6, Globulin 3.7, Albumin/Globulin Ratio 1.0 L 04/18/17 17:30: PT 19.2 H, INR 1.67 H, APTT 33.8 04/18/17 17:30: WBC 7.9, RBC 3.76, Hgb 10.8 L, Hct 33.8 L, MCV 89.9, MCH 28.7, MCHC 32.0, RDW 16.8 H, Plt Count 197, MPV 10.1, Gran % 58.0, Lymph % (Auto) 28.7 , [place] % (Auto) 9.1 H, Eos % (Auto) 3.7, Baso % (Auto) 0.5, Gran # 4.60, Lymph # (Auto) 2.3, [place] # (Auto) 0.7 H, Eos # (Auto) 0.3, Baso # (Auto) 0.04 04/18/17 17:20: Influenza Typ A,B (EIA) Negative for flu a/b - RAD Interpretation Radiology Orders: 04/18/17 14:08 CHEST PORTABLE [RAD] Stat - Medication Orders Current Medication Orders: Digoxin (Digoxin) 0.125 mg PO 1400 YAA Furosemide (Lasix) 40 mg IVP BID YAA Isosorbide Mononitrate (Imdur) 60 mg PO 0600 YAA Levothyroxine Sodium (Synthroid) 112 mcg PO 0600 YAA Losartan Potassium (Cozaar) 100 mg PO DAILY YAA Non-Formulary Medication (Milrinone 20mg/100ml D5w [Primacor 20mg/100ml D5w]) 20 mg IV 2XW YAA Spironolactone (Aldactone) 25 mg PO BID YAA Warfarin Sodium (Coumadin) 4 mg PO 1800 YAA PRN Reason: Protocol Discontinued Medications Aspirin (Aspirin Chewable) 81 mg PO STAT STA Stop: 04/18/17 14:10 Last Admin: 04/18/17 17:37 Dose: 81 mg Comments: patient refused Furosemide (Lasix) 40 mg IVP STAT STA Stop: 04/18/17 18:27 Last Admin: 04/18/17 20:21 Dose: 40 mg MAR Blood Pressure Document 04/18/17 20:21 AD (Rec: 04/18/17 20:21 AD [facility] [id number]) Blood Pressure Blood Pressure (100/60-150/90) 126/66 IVP Administration Document 04/18/17 20:21 AD (Rec: 04/18/17 20:21 AD [facility] [id number]) Charges for Administration # of IVP Administrations 1 - Scribe Statement The provider has reviewed the documentation as recorded by the Scribgwen Vuong Provider Scribe Attestation: All medical record entries made by the Scribe were at my direction and personally dictated by me. I have reviewed the chart and agree that the record accurately reflects my personal performance of the history, physical exam, medical decision making, and the department course for this patient. I have also personally directed, reviewed, and agree with the discharge instructions and disposition. Disposition/Present on Arrival - Present on Arrival Any Indicators Present on Arrival: No History of DVT/PE: No History of Uncontrolled Diabetes: No Urinary Catheter: No History of Decub. Ulcer: No History Surgical Site Infection Following: None - Disposition Have Diagnosis and Disposition been Completed?: Yes Diagnosis: Congestive heart failure Disposition: HOSPITALIZED Disposition Time: 18:50 Patient Plan: Observation Condition: FAIR
--- NOTE | 2017-04-18 15:25 | RAD ---
HISTORY: cough COMPARISON: 03/01/2017 FINDINGS: The right IJV line terminates at the cavoatrial junction. LUNGS: Again seen is pulmonary venous congestion. The left lower lobe is obscured by overlying pacemaker. PLEURA: Question of small right pleural effusion, no pneumothorax apparent. CARDIOVASCULAR: There is persistent moderate cardiomegaly. There is stable position of the left-sided dual lead transvenous permanent pacing device. OSSEOUS STRUCTURES: No significant abnormalities. VISUALIZED UPPER ABDOMEN: Normal. OTHER FINDINGS: None. IMPRESSION: Persistent moderate cardiomegaly and question of small right pleural effusion Limited portable examination, the left lower lobe is obscured by pacemaker.
[2017-04-18 17:59] LABS: BASO # 0.04 K/mm3 (0.0-2.0); BASO % 0.5 % (0.0-3.0); EOS # 0.3 (0.0-0.7); EOS % 3.7 % (1.5-5.0); GRAN # 4.6 (1.4-6.5); HEMOGLOBIN 10.8 g/dL (12.0-16.0); LYMPH # 2.3 (1.2-3.4); LYMPH % 28.7 % (22.0-35.0); MEAN CELL VOLUME 89.9 fl (80.0-105.0); MEAN CORPUSCULAR HEMOGLOBIN 28.7 pg (25.0-35.0); MEAN PLATELET VOLUME 10.1 fl (7.0-11.0); MONO # 0.7 (0.1-0.6); MONO % 9.1 % (1.0-6.0); RBC 3.76 10^6/uL (3.5-6.1); RED CELL DISTRIBUTION WIDTH 16.8 % (11.5-14.5); WHITE BLOOD COUNT 7.9 10^3/ul (4.5-11.0)
[2017-04-18 18:19] LABS: ALBUMIN 3.6 g/dL (3.0-4.8); CALCIUM 10.3 mg/dL (8.4-10.5); MAGNESIUM 2.1 mg/dL (1.7-2.2)
[2017-04-18 18:22] LABS: TROPONIN I 0.06 ng/mL
[2017-04-18 18:30] LABS: INR 1.67 (0.93-1.08); PARTIAL THROMBOPLASTIN TIME 33.8 Seconds (25.1-36.5); PROTHROMBIN TIME 19.2 SECONDS (9.4-12.5)
--- NOTE | 2017-04-18 20:34 | CP.PCM.HP ---
<Bobby Frey - Last Filed: 04/18/17 20:54> History of Present Illness - History of Present Illness History of Present Illness: PGY-1 H&P for Dr. Sena Sparks Hospitalist Service CC: Leg swelling This is an 86 year old female with PMHx systolic CHF s/p AICD (EF 8% on previous echocardiogram) on milrinone drip, Atrial fibrillation, Hypothyroidism , gout who presents complaining of worsening leg edema. 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 Alcantara on Tuesday. Patient states that he put her on Lasix 40 mg PO BID and asked her to follow up today. Patient was instructed to go to the ED since her edema had not improved. Patient states that at baseline she will get chest pain and palpitations when walking to the bathroom. She is not complaining of pain at time of encounter; however she notes that she has leg pain chronically. PMHx: Systolic Heart Failure with ICD and on milrinone drip, Atrial Fibrillation , Hypothyroidism, Gout PSHx: Laminectomy, Cholecystectomy, Hernia Repair, ICD placement Allergies: codeine (dyspnea), penicillin (rash) Social: Former smoker, quit in 1990. Denies alcohol or illicit drug use. Medications: As per MAY PMD: Dr. Green [employer] Messenger: Dr. Alcantara Present on Admission - Present on Admission Any Indicators Present on Admission: No Review of Systems - Constitutional Constitutional: absent: Chills, Fever - EENT Eyes: absent: Change in Vision Ears: absent: Decreased Hearing Nose/Mouth/Throat: absent: Nasal Congestion - Cardiovascular Cardiovascular: Chest Pain (with exertion), Dyspnea (with exertion), Palpitations (with exertion) - Respiratory Respiratory: Dyspnea (with exertion). absent: Cough - Gastrointestinal Gastrointestinal: absent: Abdominal Pain, Constipation, Diarrhea, Nausea, Vomiting - Genitourinary Genitourinary: absent: Dysuria - Musculoskeletal Musculoskeletal: Other (intermittent leg pain) - Integumentary Integumentary: absent: Rash - Neurological Neurological: absent: Dizziness - Psychiatric Psychiatric: absent: Anxiety - Endocrine Endocrine: Palpitations (with exertion) Past Patient History - Infectious Disease Hx of Infectious Diseases: None - Tetanus Immunizations Tetanus Immunization: Unknown - Past Medical History & Family History Past Medical History?: Yes - Past Social History Smoking Status: Former Smoker - CARDIAC Hx Cardiac Disorders: Yes Hx Congestive Heart Failure: Yes (EF 8%) - PULMONARY Hx Chronic Obstructive Pulmonary Disease (COPD): Yes - NEUROLOGICAL HX Cerebrovascular Accident: Yes - HEENT Hx Cataracts: Yes - RENAL Hx Chronic Kidney Disease: No - ENDOCRINE/METABOLIC Hx Hypothyroidism: Yes - HEMATOLOGICAL/ONCOLOGICAL Hx Blood Disorders: No - INTEGUMENTARY Hx Dermatological Problems: Yes (b/l pedal edema) - MUSCULOSKELETAL/RHEUMATOLOGICAL Hx Falls: No - GASTROINTESTINAL Hx Gastrointestinal Disorders: Yes (CHOLECYSTECTOMY,HERNIORHAPPHY) - GENITOURINARY/GYNECOLOGICAL Hx Reproductive Disorders: No - PSYCHIATRIC Hx Emotional Abuse: No Hx Physical Abuse: No Hx Substance Use: No - SURGICAL HISTORY Hx Cholecystectomy: Yes - ANESTHESIA Hx Anesthesia: Yes Hx Anesthesia Reactions: No Hx Malignant Hyperthermia: No Meds Allergies/Adverse Reactions: Allergies Allergy/AdvReac Type Severity Reaction Status Date / Time codeine Allergy SHORTNESS Verified 04/19/17 12:50 OF BREATH Penicillins Allergy RASH Verified 04/19/17 12:50 Physical Exam - Constitutional Appears: No Acute Distress, Chronically Ill - Head Exam Head Exam: ATRAUMATIC, NORMOCEPHALIC - Eye Exam Eye Exam: EOMI, Normal appearance - ENT Exam ENT Exam: Mucous Membranes Moist - Respiratory Exam Respiratory Exam: Rales (bibasilar), NORMAL BREATHING PATTERN. absent: Rhonchi , Wheezes, Respiratory Distress - Cardiovascular Exam Cardiovascular Exam: Irregular Rhythm, +S1, +S2. absent: Tachycardia - GI/Abdominal Exam GI & Abdominal Exam: Normal Bowel Sounds, Soft. absent: Distended, Firm, Guarding, Tenderness - Extremities Exam Extremities exam: Positive for: pedal edema (bilateral 2+ pitting) - Neurological Exam Neurological exam: Alert, Oriented x3 - Psychiatric Exam Psychiatric exam: Normal Affect, Normal Mood - Skin Skin Exam: Dry, Warm Results - Vital Signs Recent Vital Signs: Last Vital Signs Temp 97.7 F 04/18/17 13:45 Pulse 70 04/18/17 19:02 Resp 18 04/18/17 19:02 BP 125/54 L 04/18/17 19:02 Pulse Ox 99 04/18/17 19:02 - Labs Result Diagrams: 04/18/17 17:30 04/18/17 17:30 Assessment & Plan - Assessment and Plan (Free Text) Assessment: This is an 86 year old female with PMHx of Systolic CHF with EF of 8% and ICD placement on chronic IV milrinone therapy, A-fib on Coumadin, hypothyroidism, and gout admitted for lower extremity edema. Unlikely due to CHF exacerbation. Renal status at baseline. Patient is mostly bedridden due to severe CHF stage IV. LE edema Unlikely due to CHF exacerbation. Patient is at baseline severely limited. Received 40 mg IV lasix in ED. Last echo 03/2016 showed EF 8%. Severe systolic dysfunction cont home IV milrinone Continue home Losartan, Digoxin, Imdur, Aldactone Switched home PO Lasix to IV 40 mg BID Strict I&Os Daily weights Elevate legs Follow up repeat troponins Elevated Kidney function studies: At baseline Monitor Avoid nephrotoxic agents History of Atrial fibrillation Rate controlled Continue home Warfarin 4 mg daily INR daily History of Hypothyroidism Continue Synthroid History of Gout Continue Colchicine Prophylaxis DVT: Warfarin GI: Protonix Discussed and seen with Dr. Sena Sparks. <Sena Sparks N - Last Filed: 04/21/17 02:28> Results - Vital Signs Recent Vital Signs: Last Vital Signs Temp 97.7 F 04/20/17 23:28 Pulse 70 04/20/17 23:28 Resp 19 04/20/17 23:28 BP 105/62 04/20/17 23:28 Pulse Ox 96 04/20/17 23:28 - Labs Result Diagrams: 04/20/17 06:30 04/20/17 06:30 Labs: Laboratory Results - last 24 hr 04/20/17 04/20/17 04/20/17 06:30 06:30 06:30 WBC 7.5 RBC 3.73 Hgb 10.5 L Hct 33.2 L MCV 89.0 MCH 28.2 MCHC 31.6 RDW 16.9 H Plt Count 200 MPV 10.4 Gran % 59.7 Lymph % (Auto) 27.5 [place] % (Auto) 8.8 H Eos % (Auto) 3.2 Baso % (Auto) 0.8 Gran # 4.51 Lymph # (Auto) 2.1 [place] # (Auto) 0.7 H Eos # (Auto) 0.2 Baso # (Auto) 0.06 PT 19.0 H INR 1.64 H Sodium 135 Potassium 3.9 Chloride 93 L Carbon Dioxide 33 Anion Gap 14 BUN 37 H Creatinine 1.2 Est GFR ( Amer) 52 Est GFR (Non-Af Amer) 43 Random Glucose 94 Calcium 9.4 Phosphorus 3.7 Magnesium 1.6 L
[2017-04-19] MEDS: Levothyroxine 112 MCG TAB PO SCH (06:43)
[2017-04-19 07:57] LABS: BASO # 0.06 K/mm3 (0.0-2.0); BASO % 0.7 % (0.0-3.0); EOS # 0.3 (0.0-0.7); EOS % 3.9 % (1.5-5.0); GRAN # 4.95 (1.4-6.5); GRAN % 58.4 % (50.0-68.0); HEMOGLOBIN 11.3 g/dL (12.0-16.0); LYMPH # 2.4 (1.2-3.4); LYMPH % 28.2 % (22.0-35.0); MEAN CELL VOLUME 89.6 fl (80.0-105.0); MEAN CORPUSCULAR HEMOGLOBIN 28.5 pg (25.0-35.0); MEAN CORPUSCULAR HGB CONC 31.8 g/dl (31.0-37.0); MEAN PLATELET VOLUME 10.2 fl (7.0-11.0); MONO # 0.8 (0.1-0.6); MONO % 8.8 % (1.0-6.0); RBC 3.96 10^6/uL (3.5-6.1); WHITE BLOOD COUNT 8.5 10^3/ul (4.5-11.0)
[2017-04-19 08:10] LABS: INR 1.69 (0.93-1.08); PROTHROMBIN TIME 19.6 SECONDS (9.4-12.5)
[2017-04-19 08:20] LABS: MAGNESIUM 1.9 mg/dL (1.7-2.2)
[2017-04-19 08:24] LABS: TROPONIN I 0.07 ng/mL
[2017-04-19] MEDS ORDERED: metOLazone 2.5 MG TAB PO ONE (09:00)
--- NOTE | 2017-04-19 09:54 | CARD ---
APPROVED REPORT EKG Measurement Heart [id number] <Conclusion> Electronic ventricular pacemaker: 100 % V. Paced A. Fib. No change
[2017-04-19] MEDS: Milrinone 20mg/100ml D5W 100 ML IV SCH (12:37)
[2017-04-19 14:10] VITALS: BMI 26.9
[2017-04-19] MEDS ORDERED: Pneumococcal 23-Valent Vaccine IM ONE (14:10)
[2017-04-19] MEDS ORDERED: Influenza Vaccine 60 mcg/0.5 mL SYR (4YR UP) IM ONE (14:10)
[2017-04-19] MEDS: Digoxin 125 mcg (0.125 mg) Tab PO SCH (15:08)
--- NOTE | 2017-04-19 15:21 | CP.PCM.PN ---
<Mark Schultz - Last Filed: 04/19/17 14:59> Subjective - Date & Time of Evaluation Date of Evaluation: 04/19/17 Time of Evaluation: 09:00 - Subjective Subjective: IM Progress Note for Hospitalist Service Patient seen and examined at bedside in ED (pending available tele-bed). No acute events reported since admission. Today, still complains of bilateral ankle and foot pain, acutely tender to any palpation, predominantly at base of heels and midpoint of plantar region. Denies shortness of breath, reports some improvement of swelling in bilateral LE. Denies chest pain, nausea, emesis. Objective - Vital Signs/Intake and Output Vital Signs (last 24 hours): Temp Pulse Resp BP Pulse Ox 97.7 F 73 18 133/73 100 04/19/17 13:41 04/19/17 14:00 04/19/17 13:41 04/19/17 13:41 04/19/17 07:30 - Medications Medications: Current Medications Colchicine (Colocrys) 0.6 mg PO DAILY [facility] Last Admin: 04/19/17 10:42 Dose: 0.6 mg Digoxin (Digoxin) 0.125 mg PO 1400 YAA Furosemide (Lasix) 40 mg IVP BID [facility] Last Admin: 04/19/17 10:48 Dose: 40 mg Milrinone Lactate/Dextrose (Primacor 20mg/100ml D5w) 100 mls @ 4.409 mls/hr IV .[id number] YAA; 0.2 MCG/KG/MIN PRN Reason: Protocol Last Admin: 04/19/17 12:37 Dose: 0.2 mcg/kg/min, 4.409 mls/hr Isosorbide Mononitrate (Imdur) 60 mg PO 0600 [facility] Last Admin: 04/19/17 06:43 Dose: 60 mg Levothyroxine Sodium (Synthroid) 112 mcg PO 0600 [facility] Last Admin: 04/19/17 06:43 Dose: 112 mcg Losartan Potassium (Cozaar) 100 mg PO DAILY [facility] Last Admin: 04/19/17 10:46 Dose: 100 mg Metoprolol Tartrate (Lopressor) 25 mg PO BID [facility] Last Admin: 04/19/17 10:46 Dose: 25 mg Spironolactone (Aldactone) 25 mg PO BID [facility] Last Admin: 04/19/17 10:46 Dose: Not Given Warfarin Sodium (Coumadin) 4 mg PO 1800 YAA PRN Reason: Protocol - Labs Labs: PT 19.6 SECONDS (9.4-12.5) H 04/19/17 07:45 INR 1.69 (0.93-1.08) H 04/19/17 07:45 APTT 33.8 Seconds (25.1-36.5) 04/18/17 17:30 - Constitutional Appears: Non-toxic, In Acute Distress (due to acute tenderness in bilateral LE) , Chronically Ill - Head Exam Head Exam: ATRAUMATIC, NORMAL INSPECTION, NORMOCEPHALIC - Eye Exam Eye Exam: EOMI, Normal appearance. absent: Conjunctival injection, Scleral icterus Pupil Exam: absent: Irregular, Unequal - ENT Exam ENT Exam: Mucous Membranes Moist (may be skewed, seen while drinking coffee and juice) - Neck Exam Neck Exam: Normal Inspection - Respiratory Exam Respiratory Exam: Rales (bibasilar), NORMAL BREATHING PATTERN. absent: Accessory Muscle Use, Chest Wall Tenderness, Decreased Breath Sounds, Rhonchi, Wheezes, Stridor - Cardiovascular Exam Cardiovascular Exam: REGULAR RHYTHM, RRR, +S1, +S2, Murmur (blowing holosystolic murmur, most prominent at left 3rd intercostal space). absent: Bradycardia, Tachycardia, Irregular Rhythm, JVD, +S4 - GI/Abdominal Exam GI & Abdominal Exam: Soft, Normal Bowel Sounds. absent: Distended, Firm, Rigid , Tenderness - Extremities Exam Additional comments: Chronic skin changes at bilateral feet (cobblestoning of skin), dry/waxy appearing skin on bilateral LE from ankles to below knees No swelling of bilateral knees +1-+2 pitting edema in bilateral LE, from feet to bottom 2/3rds of shins Acutely tender to palpation at plantar midpoint and plantar heel regions of both feet, L>R - Neurological Exam Neurological Exam: Alert, Awake, Oriented x3 - Psychiatric Exam Psychiatric exam: Anxious, Normal Affect - Skin Skin Exam: Dry, Intact, Normal Color, Warm Assessment and Plan - Assessment and Plan (Free Text) Assessment: This is an 86 year old female with PMHx of Systolic CHF with EF of 8% and ICD placement on chronic IV milrinone therapy, A-fib on Coumadin, hypothyroidism, and gout admitted for lower extremity edema and pain. Unlikely due to CHF exacerbation. Renal status at baseline. Patient is mostly bedridden due to severe CHF stage IV and severe bilateral LE pain. Plan: 1) LE edema and pain -CHF exacerbation vs 2/2 mod-severe pulm HTN and TR, possible gout component vs fracture for pain -Received 40 mg IV lasix in ED, continuing IV lasix 40mg BID as per Dr. Alcantara -Last echo 03/2016 showed EF 8%. Severe systolic dysfunction -cont home IV milrinone, Continue home Losartan/Digoxin/Imdur/Aldactone -Strict I&Os, Daily weights, Elevate legs -trops x3 indeterminate (0.05-0.07) -bilateral foot X-rays to rule out fracture -Uric acid level ordered to assess for possible gout -Cardio (Dr. Alcantara) consulted, appreciate all recs 2) CKD -At baseline -Monitor -Avoid nephrotoxic agents 3) History of Atrial fibrillation -Rate controlled -INR subtherapeutic at 1.69, will reassess after next dose of warfarin (home dose 4mg) and adjust accordingly -INR daily 4) History of Hypothyroidism -Continue Synthroid 5) History of Gout -Continue Colchicine Dispo: Tele, pending foot x-ray and continued IV diuresis FEN: Heart-healthy diet Access: Peripheral IVs, right chest port Consults: Cardio Ppx: Protonix for GI, Coumadin + Lovenox 40mg SC daily for DVT ppx Patient seen, reviewed, and discussed with attending, Dr. Man. <Marleny Man - Last Filed: 04/19/17 16:49> Objective - Vital Signs/Intake and Output Vital Signs (last 24 hours): Temp Pulse Resp BP Pulse Ox 97.7 F 73 18 133/73 100 04/19/17 13:41 04/19/17 14:00 04/19/17 13:41 04/19/17 13:41 04/19/17 07:30 - Medications Medications: Current Medications Colchicine (Colocrys) 0.6 mg PO DAILY [facility] Last Admin: 04/19/17 10:42 Dose: 0.6 mg Digoxin (Digoxin) 0.125 mg PO 1400 [facility] Last Admin: 04/19/17 15:08 Dose: 0.125 mg Furosemide (Lasix) 40 mg IVP BID [facility] Last Admin: 02/13/18 10:48 Dose: 40 mg Milrinone Lactate/Dextrose (Primacor 20mg/100ml D5w) 100 mls @ 4.409 mls/hr IV .[id number] YAA; 0.2 MCG/KG/MIN PRN Reason: Protocol Last Admin: 04/19/17 12:37 Dose: 0.2 mcg/kg/min, 4.409 mls/hr Isosorbide Mononitrate (Imdur) 60 mg PO 0600 [facility] Last Admin: 04/19/17 06:43 Dose: 60 mg Levothyroxine Sodium (Synthroid) 112 mcg PO 0600 [facility] Last Admin: 04/19/17 06:43 Dose: 112 mcg Losartan Potassium (Cozaar) 100 mg PO DAILY [facility] Last Admin: 04/19/17 10:46 Dose: 100 mg Metoprolol Tartrate (Lopressor) 25 mg PO BID [facility] Last Admin: 04/19/17 10:46 Dose: 25 mg Spironolactone (Aldactone) 25 mg PO BID [facility] Last Admin: 04/19/17 10:46 Dose: Not Given Warfarin Sodium (Coumadin) 4 mg PO 1800 [facility] PRN Reason: Protocol - Labs Labs: PT 19.6 SECONDS (9.4-12.5) H 04/19/17 07:45 INR 1.69 (0.93-1.08) H 04/19/17 07:45 APTT 33.8 Seconds (25.1-36.5) 04/18/17 17:30 Attending/Attestation - Attestation I have personally seen and examined this patient.: Yes I have fully participated in the care of the patient.: Yes I have reviewed all pertinent clinical information, including history, physical exam and plan: Yes Notes (Text): 04/19/17 16:46 86 year old female who past medical history of systolic CHF s/p ICD, on chronic iv milrinone infusion, afib on coumadin, and gout who presents with LE edema and bilateral feet pain. CXR shows chronic congestion. PBNP is elevated. She was seen by social welfare clerk who recommends iv lasix for diuresis. Continue with home medications including iv milrinone. Xray of the feet ordered. She is resumed on colchichine for gout. She is on coumadin for history of afib. Continue with monitor creatinine closely for CKD. Marleny Man MD Hospitalist.
--- NOTE | 2017-04-19 16:19 | RAD ---
PROCEDURE: Bilateral Feet Radiographs. HISTORY: foot pain worse with palpation, r/o fracture COMPARISON: None. FINDINGS: BONES: Right Foot: Normal. No fracture. Plantar calcaneal spur. Left Foot: Normal. No fracture. Plantar calcaneal spur. JOINTS: Right Foot: Osteoarthritis of MTP 1. Flexion deformity of 2nd 3rd and 4th digits. Left Foot: Osteoarthritis of MTP 1. Flexion deformity of 2nd 3rd and 4th digits. SOFT TISSUES: Right Foot: Normal. Left Foot: Normal. OTHER FINDINGS: None. 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 No acute fracture. Bilateral plantar calcaneal spur.
--- NOTE | 2017-04-19 19:51 | CON ---
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 She was given IV Lasix and feels somewhat better this morning. There was no chest pain. There was orthopnea, dyspnea on exertion, edema, shortness of breath. There was no syncope, palpitation, fever, chills, cough, sputum production, hemoptysis, abdominal pain, nausea, vomiting, diarrhea, constipation or melena. PAST MEDICAL HISTORY: Notable for class IV congestive heart failure. She has a severe cardiomyopathy and she is on home milrinone infusion. Recent echocardiography revealed severe LV dysfunction with severe MR, TR, and pulmonary hypertension. She has chronic AFib, on warfarin. She has a defibrillator in place, which was recently checked. She has a history of stroke, gout, hypothyroidism, gallbladder surgery and back surgery. CURRENT MEDICATIONS: Include Aldactone, colchicine, warfarin, losartan, isosorbide, digoxin, Lasix, Synthroid, metoprolol, milrinone. ALLERGY: SHE NOTES AN ALLERGY TO PENICILLIN AND CODEINE. SOCIAL HISTORY: She continues to live at home with the assistance of her family. She is a former remote smoker. She does not drink alcohol. Her diet is sometimes not strict with regard to sodium intake. REVIEW OF SYSTEMS: [id number] review of systems otherwise unremarkable except is noted above. FAMILY HISTORY: Noncontributory. PHYSICAL EXAMINATION: GENERAL: She is a well-developed elderly woman, sitting on her stretcher in the emergency room, in no acute distress. VITAL SIGNS: Notable for atrial fibrillation with ventricular pacing, blood pressure 123/58, respirations 18, O2 sat 99% to 100% on room air. HEENT: Reveals neck vein distention, no thyroid enlargement, no carotid bruit appreciated. Mucous membranes moist. Conjunctivae pink. NECK: Supple. LUNGS: Lung kraus scattered rhonchi. Few rales at the bases. HEART: Reveals a regular rhythm, normal first and second heart sounds, systolic murmur along the left sternal border with PMI laterally displaced. ABDOMEN: Soft, bowel sounds present. No mass, organomegaly, tenderness, rebound, guarding, CVA tenderness or palpable abdominal aortic aneurysm. EXTREMITIES: Revealed moderated edema at the ankles and shins bilaterally. Negative Homans. NEUROLOGIC: Awake, alert, oriented. SKIN: Warm and dry. No rashes, cellulitis. PSYCHIATRIC: Normal as to mood and affect. LABORATORY AND IMAGING: EKG reveals atrial fibrillation with ventricular pacing, no change from the previous EKG. Chest x-ray is a portable study. It demonstrates persistent moderate cardiomegaly, questionable small right pleural effusion, etc. White count normal. Platelet count normal. Hemoglobin 10.8, hematocrit 33.8. PT 19.2, INR 1.67, PTT 33.8. Electrolytes are unremarkable. BUN 33, creatinine 1.3, blood sugar 90, magnesium 2.1. LFTs mildly abnormal. CK 30, troponin 0.06 and 0.05, BNP 5500. Influenza in negative. 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 PLAN: She will be admitted to Telemetry. We will continue IV milrinone. She will get IV Lasix and p.o. metolazone as well as Aldactone. I will continue her other cardiac meds including aspirin, warfarin, losartan, digoxin, isosorbide. We will also continue colchicine and Synthroid. We will monitor I's and O's and daily weights. We will monitor daily labs and INRs. She can be out of bed to a chair. I will review her old records. We will continue milrinone infusion. I will follow along with you. I will make additional recommendations based on her clinical course. Juan Jose Alcantara MD [facility]
[2017-04-20] MEDS: Milrinone 20mg/100ml D5W 100 ML IV SCH ×2 (04:29→12:38)
[2017-04-20] MEDS: Levothyroxine 112 MCG TAB PO SCH (05:15)
[2017-04-20 07:20] LABS: BASO # 0.06 K/mm3 (0.0-2.0); BASO % 0.8 % (0.0-3.0); EOS # 0.2 (0.0-0.7); EOS % 3.2 % (1.5-5.0); GRAN # 4.51 (1.4-6.5); GRAN % 59.7 % (50.0-68.0); HEMOGLOBIN 10.5 g/dL (12.0-16.0); LYMPH # 2.1 (1.2-3.4); LYMPH % 27.5 % (22.0-35.0); MEAN CORPUSCULAR HEMOGLOBIN 28.2 pg (25.0-35.0); MEAN CORPUSCULAR HGB CONC 31.6 g/dl (31.0-37.0); MEAN PLATELET VOLUME 10.4 fl (7.0-11.0); MONO # 0.7 (0.1-0.6); MONO % 8.8 % (1.0-6.0); RBC 3.73 10^6/uL (3.5-6.1); RED CELL DISTRIBUTION WIDTH 16.9 % (11.5-14.5); WHITE BLOOD COUNT 7.5 10^3/ul (4.5-11.0)
[2017-04-20 07:32] LABS: INR 1.64 (0.93-1.08)
[2017-04-20 07:55] LABS: CALCIUM 9.4 mg/dL (8.4-10.5); MAGNESIUM 1.6 mg/dL (1.7-2.2)
[2017-04-20] MEDS ORDERED: Potassium Chloride 40 mEq/30 ml LIQ UD PO ONE (09:22)
[2017-04-20] MEDS: Magnesium Sulfate 2 GM in Sodium Chloride 0.9% 100 ML IVPB SCH ×2 (10:20→14:47)
--- NOTE | 2017-04-20 14:15 | CP.PCM.PN ---
<Mark Schultz - Last Filed: 04/20/17 14:11> Subjective - Date & Time of Evaluation Date of Evaluation: 04/20/17 Time of Evaluation: 07:50 - Subjective Subjective: IM Progress Note for Hospitalist Service Patient seen and examined at bedside on floors today. No acute events reported overnight. Today, improved LE pain and swelling, reports breathing is "fine." Denies chest pain, shortness of breath, nausea, emesis. Objective - Vital Signs/Intake and Output Vital Signs (last 24 hours): Temp Pulse Resp BP Pulse Ox 98.1 F 71 18 101/58 L 98 04/20/17 12:00 04/20/17 12:00 04/20/17 12:00 04/20/17 12:00 04/20/17 12:00 Intake and Output: 04/20/17 04/20/17 06:59 18:59 Intake Total 725 Output Total 1200 Balance -475 - Medications Medications: Current Medications Colchicine (Colocrys) 0.6 mg PO DAILY [facility] Last Admin: 04/20/17 10:19 Dose: 0.6 mg Digoxin (Digoxin) 0.125 mg PO 1400 [facility] Last Admin: 04/19/17 15:08 Dose: 0.125 mg Furosemide (Lasix) 40 mg IVP BID [facility] Last Admin: 04/20/17 10:18 Dose: 40 mg Milrinone Lactate/Dextrose (Primacor 20mg/100ml D5w) 100 mls @ 4.409 mls/hr IV .[id number] YAA; 0.2 MCG/KG/MIN PRN Reason: Protocol Last Admin: 04/20/17 12:38 Dose: Not Given Magnesium Sulfate 2 gm/ Sodium (Chloride) 104 mls @ 51 mls/hr IVPB Q5H [facility] Stop: 04/20/17 16:33 Last Admin: 04/20/17 10:20 Dose: 51 mls/hr Isosorbide Mononitrate (Imdur) 60 mg PO 0600 [facility] Last Admin: 04/20/17 05:15 Dose: 60 mg Levothyroxine Sodium (Synthroid) 112 mcg PO 0600 [facility] Last Admin: 04/20/17 05:15 Dose: 112 mcg Losartan Potassium (Cozaar) 100 mg PO DAILY [facility] Last Admin: 04/20/17 10:19 Dose: 100 mg Metoprolol Tartrate (Lopressor) 25 mg PO BID [facility] Last Admin: 04/20/17 10:19 Dose: 25 mg Spironolactone (Aldactone) 25 mg PO BID [facility] Last Admin: 04/20/17 10:20 Dose: 25 mg Tramadol HCl (Ultram) 50 mg PO DAILY [facility] Last Admin: 04/20/17 12:43 Dose: 50 mg Warfarin Sodium (Coumadin) 4 mg PO 1800 [facility] PRN Reason: Protocol Last Admin: 04/19/17 17:32 Dose: 4 mg - Labs Labs: 04/20/17 06:30 04/20/17 06:30 PT 19.0 SECONDS (9.4-12.5) H 04/20/17 06:30 INR 1.64 (0.93-1.08) H 04/20/17 06:30 APTT 33.8 Seconds (25.1-36.5) 04/18/17 17:30 - Additional Findings Additional findings: - Constitutional Appears: Non-toxic, No Acute Distress, Chronically Ill - Head Exam Head Exam: ATRAUMATIC, NORMAL INSPECTION, NORMOCEPHALIC - Eye Exam Eye Exam: EOMI, Normal appearance. absent: Conjunctival injection, Scleral icterus Pupil Exam: absent: Irregular, Unequal - ENT Exam ENT Exam: Mucous Membranes Moist (may be skewed, seen while drinking coffee and juice) - Neck Exam Neck Exam: Normal Inspection - Respiratory Exam Respiratory Exam: Rales (bibasilar, improved), NORMAL BREATHING PATTERN. absent : Accessory Muscle Use, Chest Wall Tenderness, Decreased Breath Sounds, Rhonchi , Wheezes, Stridor - Cardiovascular Exam Cardiovascular Exam: REGULAR RHYTHM, RRR, +S1, +S2, Murmur (blowing holosystolic murmur, most prominent at left 3rd intercostal space). absent: Bradycardia, Tachycardia, Irregular Rhythm, JVD, +S4 - GI/Abdominal Exam GI & Abdominal Exam: Soft, Normal Bowel Sounds. absent: Distended, Firm, Rigid , Tenderness - Extremities Exam Additional comments: Chronic skin changes at bilateral feet (cobblestoning of skin), dry/waxy appearing skin on bilateral LE from ankles to below knees No swelling of bilateral knees +1-2 pitting edema in bilateral LE, from feet to bottom 2/3rds of shins, still present but some improvement as compared to yesterday Minimally tender to palpation at plantar midpoint and plantar heel regions of both feet - Neurological Exam Neurological Exam: Alert, Awake, Oriented x3 - Psychiatric Exam Psychiatric exam: Normal Affect and Mood - Skin Skin Exam: Dry, Intact, Normal Color, Warm Assessment and Plan - Assessment and Plan (Free Text) Assessment: This is an 86 year old female with PMHx of Systolic CHF with EF of 8% and ICD placement on chronic IV milrinone therapy, A-fib on Coumadin, hypothyroidism, and gout admitted for lower extremity edema and pain. She is being treated for LE edema, LE pain, and need for IV diuresis (having failed PO diuretics). Plan: 1) LE edema and pain -CHF exacerbation vs 2/2 mod-severe pulm HTN and TR, possible gout component vs fracture for pain -Received 40 mg IV lasix in ED, continuing IV lasix 40mg BID as per Dr. Alcantara -Last echo 03/2016 showed EF 8%. Severe systolic dysfunction -cont home IV milrinone, Continue home Losartan/Digoxin/Imdur/Aldactone -Strict I&Os, Daily weights, Elevate legs -trops x3 indeterminate (0.05-0.07) -bilateral foot X-rays negative for foot fx, notable for bilateral osteoarthritis -Uric acid level elevated at 10.6, but unable to add additional medications due to co-morbidities (Severe CHF, CKD, etc) -Cardio (Dr. Alcantara) consulted, appreciate all recs -Pain persisting, as per PT pt unwilling to participate in walking with PT today due to pain, recs Rehab vs home with services -Discussed with Case Management, will discuss with patient's family to determine family preference for home vs rehab 2) CKD -At baseline -Monitor -Avoid nephrotoxic agents 3) History of Atrial fibrillation -Rate controlled -INR subtherapeutic at 1.64, increased today's coumadin dose to 5mg -INR daily 4) History of Hypothyroidism -Continue Synthroid 5) History of Gout -Continue Colchicine Dispo: Remote Tele, continue IV diuresis and pain control, pending placement/ referral for home services or rehab, possible D/c tomorrow FEN: Heart-healthy diet Access: Peripheral IVs, right chest port Consults: Cardio, PT Ppx: Protonix for GI, Coumadin + Lovenox 40mg SC daily for DVT ppx Patient seen, reviewed, and discussed with attending, Dr. Man. <Marleny Man - Last Filed: 04/20/17 15:38> Objective - Vital Signs/Intake and Output Vital Signs (last 24 hours): Temp Pulse Resp BP Pulse Ox 98.1 F 70 18 101/58 L 98 04/20/17 12:00 04/20/17 14:00 04/20/17 12:00 04/20/17 12:00 04/20/17 12:00 Intake and Output: 04/20/17 04/20/17 06:59 18:59 Intake Total 725 480 Output Total 1200 500 Balance -475 -20 - Medications Medications: Current Medications Colchicine (Colocrys) 0.6 mg PO DAILY [facility] Last Admin: 04/20/17 10:19 Dose: 0.6 mg Digoxin (Digoxin) 0.125 mg PO 1400 [facility] Last Admin: 04/20/17 14:45 Dose: 0.125 mg Furosemide (Lasix) 40 mg IVP BID [facility] Last Admin: 04/20/17 10:18 Dose: 40 mg Milrinone Lactate/Dextrose (Primacor 20mg/100ml D5w) 100 mls @ 4.409 mls/hr IV .[id number] YAA; 0.2 MCG/KG/MIN PRN Reason: Protocol Last Admin: 04/20/17 12:38 Dose: Not Given Magnesium Sulfate 2 gm/ Sodium (Chloride) 104 mls @ 51 mls/hr IVPB Q5H [facility] Stop: 04/20/17 16:33 Last Admin: 04/20/17 14:47 Dose: 51 mls/hr Isosorbide Mononitrate (Imdur) 60 mg PO 0600 [facility] Last Admin: 04/20/17 05:15 Dose: 60 mg Levothyroxine Sodium (Synthroid) 112 mcg PO 0600 [facility] Last Admin: 04/20/17 05:15 Dose: 112 mcg Losartan Potassium (Cozaar) 100 mg PO DAILY [facility] Last Admin: 04/20/17 10:19 Dose: 100 mg Metoprolol Tartrate (Lopressor) 25 mg PO BID [facility] Last Admin: 04/20/17 10:19 Dose: 25 mg Spironolactone (Aldactone) 25 mg PO BID [facility] Last Admin: 02/14/18 10:20 Dose: 25 mg Tramadol HCl (Ultram) 50 mg PO DAILY [facility] Last Admin: 04/20/17 12:43 Dose: 50 mg Warfarin Sodium (Coumadin) 5 mg PO 1800 [facility] PRN Reason: Protocol - Labs Labs: 04/20/17 06:30 04/20/17 06:30 PT 19.0 SECONDS (9.4-12.5) H 04/20/17 06:30 INR 1.64 (0.93-1.08) H 04/20/17 06:30 APTT 33.8 Seconds (25.1-36.5) 04/18/17 17:30 Attending/Attestation - Attestation I have personally seen and examined this patient.: Yes I have fully participated in the care of the patient.: Yes I have reviewed all pertinent clinical information, including history, physical exam and plan: Yes Notes (Text): 04/20/17 15:35 86 year old female who past medical history of systolic CHF s/p ICD, on chronic iv milrinone infusion, afib on coumadin, and gout who presented with dyspnea on exertion, LE edema and bilateral feet pain. CXR shows chronic congestion and PBNP was elevated. She is being followed by the ladle pourer who recommends to continue with iv lasix for diuresis. Continue with home medications including iv milrinone. Xray of the feet were reviewed as above. She is on colchichine for gout and resumed on tramadol for pain. She is on coumadin for history of afib; agree with increasing to 5 mg tonight. Continue with monitor creatinine closely for CKD. Marleny Man MD Hospitalist.
[2017-04-20] MEDS: Digoxin 125 mcg (0.125 mg) Tab PO SCH (14:45)
--- NOTE | 2017-04-20 14:51 | PN ---
DATE: 04/20/2017 SUBJECTIVE: The patient is seen lying in bed on telemetry. She feels significantly better. Leg edema is improved. Dyspnea is improved as well. Her current medications include IV milrinone, Aldactone 25 mg b.i.d., colchicine, Coumadin, Cozaar 100 mg daily, digoxin 0.125 mg daily, Imdur 60 mg daily, Lasix 40 mg b.i.d., metoprolol 25 mg b.i.d., and Synthroid. PHYSICAL EXAMINATION: GENERAL: She is a very elderly woman who appears comfortable at rest. VITAL SIGNS: Her blood pressure is 106/58 with a pulse of 70 with ventricular pacing, respirations are 14. She is afebrile. HEENT: JVD is present. CHEST: Bilateral scattered rhonchi. HEART: PMI displaced laterally with a systolic murmur at the lower left sternal border. ABDOMEN: Soft and nontender. Normoactive bowel sounds. EXTREMITIES: Leg edema 2+. LABORATORY DATA: Potassium 3.9, BUN and creatinine 37 and 1.2. Hemoglobin and hematocrit 10.5 and 33.2 with a white count of 7.5, platelet count of 200,000. Intake and output reported as 425 and 800. IMPRESSION: 1. Decompensated congestive heart failure, [id number], predominantly systolic. 2. Stage IV congestive heart failure, maintained on chronic milrinone infusion at home. 3. Severe mitral and tricuspid regurgitation. 4. Chronic atrial fibrillation, status post implantable cardioverter defibrillator implant. RECOMMENDATIONS: IV Lasix will be continued for now. Oral Zaroxolyn will be added as needed. Daily labs will be checked. Her overall prognosis remains extremely poor. We will continue to follow along and make further recommendations as appropriate. Dino Thompson MD
[2017-04-21] MEDS: Levothyroxine 112 MCG TAB PO SCH (07:05)
[2017-04-21 07:33] LABS: BASO # 0.05 K/mm3 (0.0-2.0); BASO % 0.7 % (0.0-3.0); EOS # 0.3 (0.0-0.7); EOS % 3.8 % (1.5-5.0); GRAN # 4.57 (1.4-6.5); GRAN % 59.8 % (50.0-68.0); HEMOGLOBIN 10.8 g/dL (12.0-16.0); LYMPH % 26.4 % (22.0-35.0); MEAN CELL VOLUME 89.7 fl (80.0-105.0); MEAN CORPUSCULAR HEMOGLOBIN 28.6 pg (25.0-35.0); MEAN PLATELET VOLUME 10.6 fl (7.0-11.0); MONO # 0.7 (0.1-0.6); MONO % 9.3 % (1.0-6.0); RBC 3.77 10^6/uL (3.5-6.1); WHITE BLOOD COUNT 7.6 10^3/ul (4.5-11.0)
[2017-04-21 07:46] LABS: INR 1.69 (0.93-1.08); PROTHROMBIN TIME 19.6 SECONDS (9.4-12.5)
[2017-04-21 08:04] LABS: CALCIUM 9.7 mg/dL (8.4-10.5); MAGNESIUM 2.3 mg/dL (1.7-2.2)
--- NOTE | 2017-04-21 08:10 | CP.PCM.PN ---
Subjective - Date & Time of Evaluation Date of Evaluation: 04/21/17 Time of Evaluation: 07:00 - Subjective Subjective: Stable on 3R. She feels better but continued left heel/foot pain. No CP. Edema minimal now. V/S noted V. Paced. PE: Lungs: few rhonchi Cor: S1S2 Abd.: soft Ext: min. edema Neuro.: alert I/O= 1115/1400 recorded Labs noted: INR= 1.69, Cr.= 1.2, K+= 3.9. U.A was 10.2 Foot Xrays noted. Objective - Vital Signs/Intake and Output Vital Signs (last 24 hours): Temp Pulse Resp BP Pulse Ox 97.5 F L 70 20 109/59 L 97 04/21/17 06:00 04/21/17 06:00 04/21/17 06:00 04/21/17 06:00 04/21/17 06:00 Intake and Output: 04/21/17 04/21/17 06:59 18:59 Intake Total 635 Output Total 900 Balance -265 - Medications Medications: Current Medications Colchicine (Colocrys) 0.6 mg PO DAILY [facility] Last Admin: 04/20/17 10:19 Dose: 0.6 mg Digoxin (Digoxin) 0.125 mg PO 1400 [facility] Last Admin: 04/20/17 14:45 Dose: 0.125 mg Furosemide (Lasix) 40 mg IVP BID [facility] Last Admin: 04/20/17 18:01 Dose: 40 mg Milrinone Lactate/Dextrose (Primacor 20mg/100ml D5w) 100 mls @ 4.409 mls/hr IV .[id number] [facility]; 0.2 MCG/KG/MIN PRN Reason: Protocol Last Admin: 04/20/17 12:38 Dose: Not Given Isosorbide Mononitrate (Imdur) 60 mg PO 0600 [facility] Last Admin: 04/21/17 06:58 Dose: 60 mg Levothyroxine Sodium (Synthroid) 112 mcg PO 0600 [facility] Last Admin: 04/21/17 07:05 Dose: 112 mcg Losartan Potassium (Cozaar) 100 mg PO DAILY [facility] Last Admin: 04/20/17 10:19 Dose: 100 mg Metoprolol Tartrate (Lopressor) 25 mg PO BID [facility] Last Admin: 04/20/17 18:00 Dose: 25 mg Spironolactone (Aldactone) 25 mg PO BID [facility] Last Admin: 04/20/17 18:00 Dose: 25 mg Tramadol HCl (Ultram) 50 mg PO BID PRN PRN Reason: Pain, moderate (4-7) Warfarin Sodium (Coumadin) 5 mg PO 1800 [facility] PRN Reason: Protocol Last Admin: 04/20/17 17:59 Dose: 5 mg - Labs Labs: 04/21/17 06:30 04/20/17 06:30 PT 19.6 SECONDS (9.4-12.5) H 04/21/17 06:30 INR 1.69 (0.93-1.08) H 04/21/17 06:30 APTT 33.8 Seconds (25.1-36.5) 04/18/17 17:30 Assessment and Plan - Assessment and Plan (Free Text) Assessment: Dyspnea/Edema/Orthopnea, improved CHF IV, Home milrinone infusion CCM with svere LVD and valvular heart disease: Severe MR, TR, PH AF ICD CVA Gout Hypothyroid GB and Back Surgery Plan: Continue IV Lasix, PO metolazone and spironolactone Continue IV milrinone Evaluate left foot pain, possible acute gout? Increase colchicine to BID Warfarin 7.5 mg today Monitor: labs, INR, I/O, sats., etc PT/OOB as [facility] Eval.
[2017-04-21] MEDS ORDERED: metOLazone 2.5 MG TAB PO ONE (09:00)
[2017-04-21] MEDS ORDERED: MILRINONE 20 MG/100 ML IV SCH (10:00)
[2017-04-21] MEDS ORDERED: [UNRECOGNIZED DRUG - OTHER] IV SCH (10:00)
[2017-04-21] MEDS: Milrinone 20mg/100ml D5W 100 ML IV SCH ×2 (10:34→23:07)
--- NOTE | 2017-04-21 14:13 | CP.PCM.PN ---
<Mark Schultz - Last Filed: 04/21/17 14:08> Subjective - Date & Time of Evaluation Date of Evaluation: 04/21/17 Time of Evaluation: 07:15 - Subjective Subjective: IM Progress Note for Hospitalist Service Patient seen and examined at bedside on floors today. No acute events reported overnight. Today, still complaining of bilateral foot pain, but reports improved LE swelling and states she is breathing "fine." Denies chest pain, nausea, emesis, productive cough. Yesterday, stated to medical team that she wanted to return home for rehab as she already has home PT visiting 3x per week , but is now stating that she wants to go to a rehab; health social work professor and case management notified. Objective - Vital Signs/Intake and Output Vital Signs (last 24 hours): Temp Pulse Resp BP Pulse Ox 97.6 F 69 18 119/64 97 04/21/17 12:00 04/21/17 12:00 04/21/17 12:00 04/21/17 12:00 04/21/17 06:00 Intake and Output: 04/21/17 04/21/17 06:59 18:59 Intake Total 735 Output Total 900 Balance -165 - Medications Medications: Current Medications Colchicine (Colocrys) 0.6 mg PO BID [facility] Last Admin: 04/21/17 10:38 Dose: 0.6 mg Digoxin (Digoxin) 0.125 mg PO 1400 [facility] Last Admin: 04/20/17 14:45 Dose: 0.125 mg Furosemide (Lasix) 40 mg IVP BID [facility] Last Admin: 04/21/17 10:37 Dose: 40 mg Milrinone Lactate/Dextrose (Primacor 20mg/100ml D5w) 100 mls @ 4.409 mls/hr IV .[id number] [facility]; 0.2 MCG/KG/MIN PRN Reason: Protocol Last Admin: 04/21/17 10:34 Dose: 0.2 mcg/kg/min, 4.409 mls/hr Isosorbide Mononitrate (Imdur) 60 mg PO 0600 [facility] Last Admin: 04/21/17 06:58 Dose: 60 mg Levothyroxine Sodium (Synthroid) 112 mcg PO 0600 [facility] Last Admin: 04/21/17 07:05 Dose: 112 mcg Losartan Potassium (Cozaar) 100 mg PO DAILY [facility] Last Admin: 04/21/17 10:38 Dose: 100 mg Metoprolol Tartrate (Lopressor) 25 mg PO BID [facility] Last Admin: 04/21/17 10:38 Dose: 25 mg Spironolactone (Aldactone) 25 mg PO BID [facility] Last Admin: 04/21/17 10:38 Dose: 25 mg Tramadol HCl (Ultram) 50 mg PO BID PRN PRN Reason: Pain, moderate (4-7) Warfarin Sodium (Coumadin) 5 mg PO 1800 YAA PRN Reason: Protocol - Labs Labs: 04/21/17 06:30 04/21/17 06:30 PT 19.6 SECONDS (9.4-12.5) H 04/21/17 06:30 INR 1.69 (0.93-1.08) H 04/21/17 06:30 APTT 33.8 Seconds (25.1-36.5) 04/18/17 17:30 - Additional Findings Additional findings: - Constitutional Appears: Non-toxic, No Acute Distress, Chronically Ill - Head Exam Head Exam: ATRAUMATIC, NORMAL INSPECTION, NORMOCEPHALIC - Eye Exam Eye Exam: EOMI, Normal appearance. absent: Conjunctival injection, Scleral icterus Pupil Exam: absent: Irregular, Unequal - ENT Exam ENT Exam: Mucous Membranes Moist (may be skewed, seen while drinking coffee and juice) - Neck Exam Neck Exam: Normal Inspection - Respiratory Exam Respiratory Exam: Rales (bibasilar, improved), NORMAL BREATHING PATTERN. absent : Accessory Muscle Use, Chest Wall Tenderness, Decreased Breath Sounds, Rhonchi , Wheezes, Stridor - Cardiovascular Exam Cardiovascular Exam: REGULAR RHYTHM, RRR, +S1, +S2, Murmur (blowing holosystolic murmur, most prominent at left 3rd intercostal space, unchanged). absent: Bradycardia, Tachycardia, Irregular Rhythm, JVD, +S4 - GI/Abdominal Exam GI & Abdominal Exam: Soft, Normal Bowel Sounds. absent: Distended, Firm, Rigid , Tenderness - Extremities Exam Additional comments: Chronic skin changes at bilateral feet (cobblestoning of skin), dry/waxy appearing skin on bilateral LE from ankles to below knees No swelling of bilateral knees +1 pitting edema in bilateral LE, from feet to bottom 1/2 of shins, still present but some improvement as compared to yesterday Moderately tender to palpation at plantar midpoint and plantar heel regions of both feet - Neurological Exam Neurological Exam: Alert, Awake, Oriented x3 - Psychiatric Exam Psychiatric exam: Normal Affect and Mood - Skin Skin Exam: Dry, Intact, Normal Color, Warm Assessment and Plan - Assessment and Plan (Free Text) Assessment: This is an 86 year old female with PMHx of Systolic CHF with EF of 8% and ICD placement on chronic IV milrinone therapy, A-fib on Coumadin, hypothyroidism, and gout admitted for lower extremity edema and pain. She is being treated for LE edema, LE pain, and need for IV diuresis (having failed PO diuretics). Pending placement for rehab. Plan: 1) LE edema and pain -CHF exacerbation vs 2/2 mod-severe pulm HTN and TR, possible gout component vs osteoarthritis -Received 40 mg IV lasix in ED, continuing IV lasix 40mg BID as per Dr. Alcantara -Last echo 03/2016 showed EF 8%. Severe systolic dysfunction -cont home IV milrinone, Continue home Losartan/Digoxin/Imdur/Aldactone -Strict I&Os, Daily weights, Elevate legs -trops x3 indeterminate (0.05-0.07) -bilateral foot X-rays negative for foot fx, notable for bilateral osteoarthritis -Uric acid level elevated at 10.6, but unable to add additional medications due to co-morbidities (Severe CHF, CKD, etc), colchicine increased to BID as per Cardio -Cardio (Dr. Alcantara) consulted, appreciate all recs -Pain persisting, Rehab vs home with services as per PT; pending placement at [facility] as per Case Management (accepted, pending insurance auth) 2) CKD -At baseline -Cr. 1.3 today, was 1.2 -Avoid nephrotoxic agents 3) History of Atrial fibrillation -Rate controlled -INR subtherapeutic at 1.69, coumadin increased to 7.5mg as per Cardio -INR daily 4) History of Hypothyroidism -Continue Synthroid 5) History of Gout -Colchicine increased to BID as per Cardio -Uric acid 10.6, elevated -limited additional treatment options given severe cardiac disease, NSAIDs and Steroids not recommended Dispo: Remote Tele, continue IV diuresis and pain control, pending insurance auth for [facility] for rehab FEN: Heart-healthy diet Access: Peripheral IVs, right chest port Consults: Cardio, PT Ppx: Protonix for GI, Coumadin + Lovenox 40mg SC daily for DVT ppx Patient seen, reviewed, and discussed with attending, Dr. Man. <Marleny Man - Last Filed: 04/21/17 17:13> Objective - Vital Signs/Intake and Output Vital Signs (last 24 hours): Temp Pulse Resp BP Pulse Ox 97.6 F 69 18 119/64 97 04/21/17 12:00 04/21/17 12:00 04/21/17 12:00 04/21/17 12:00 04/21/17 06:00 Intake and Output: 04/21/17 04/21/17 06:59 18:59 Intake Total 735 Output Total 900 Balance -165 - Medications Medications: Current Medications Colchicine (Colocrys) 0.6 mg PO BID [facility] Last Admin: 04/21/17 10:38 Dose: 0.6 mg Digoxin (Digoxin) 0.125 mg PO 1400 [facility] Last Admin: 04/21/17 14:58 Dose: 0.125 mg Furosemide (Lasix) 40 mg IVP BID [facility] Last Admin: 04/21/17 10:37 Dose: 40 mg Milrinone Lactate/Dextrose (Primacor 20mg/100ml D5w) 100 mls @ 4.409 mls/hr IV .[id number] [facility]; 0.2 MCG/KG/MIN PRN Reason: Protocol Last Admin: 04/21/17 10:34 Dose: 0.2 mcg/kg/min, 4.409 mls/hr Isosorbide Mononitrate (Imdur) 60 mg PO 0600 [facility] Last Admin: 04/21/17 06:58 Dose: 60 mg Levothyroxine Sodium (Synthroid) 112 mcg PO 0600 [facility] Last Admin: 04/21/17 07:05 Dose: 112 mcg Losartan Potassium (Cozaar) 100 mg PO DAILY [facility] Last Admin: 04/21/17 10:38 Dose: 100 mg Metoprolol Tartrate (Lopressor) 25 mg PO BID [facility] Last Admin: 04/21/17 10:38 Dose: 25 mg Spironolactone (Aldactone) 25 mg PO BID [facility] Last Admin: 04/21/17 10:38 Dose: 25 mg Tramadol HCl (Ultram) 50 mg PO BID PRN PRN Reason: Pain, moderate (4-7) Last Admin: 04/21/17 15:01 Dose: 50 mg Warfarin Sodium (Coumadin) 5 mg PO 1800 YAA PRN Reason: Protocol - Labs Labs: 04/21/17 06:30 04/21/17 06:30 PT 19.6 SECONDS (9.4-12.5) H 04/21/17 06:30 INR 1.69 (0.93-1.08) H 04/21/17 06:30 APTT 33.8 Seconds (25.1-36.5) 04/18/17 17:30 Attending/Attestation - Attestation I have personally seen and examined this patient.: Yes I have fully participated in the care of the patient.: Yes I have reviewed all pertinent clinical information, including history, physical exam and plan: Yes Notes (Text): 04/21/17 17:11 86 year old female who past medical history of systolic CHF s/p ICD, on chronic iv milrinone infusion, afib on coumadin, and gout who presented with dyspnea on exertion, LE edema and bilateral feet pain. CXR showed chronic congestion and PBNP was elevated. She is being followed by the automatic machines supervisor who recommends to continue with iv lasix for diuresis. Continue with home medications including iv milrinone. Xray of the feet were reviewed as above. She is on colchichine for gout; dose was increased today. She is also on prn tramadol for pain. She is on coumadin for history of afib; dose was also increased today. Continue with monitor creatinine closely for CKD. Continue this physical therapy; will follow up with recommendations for d/c planning home with [facility] vs [facility]. Marleny Man MD Hospitalist.
[2017-04-21] MEDS: Digoxin 125 mcg (0.125 mg) Tab PO SCH (14:58)
[2017-04-22] MEDS: Levothyroxine 112 MCG TAB PO SCH (05:16)
[2017-04-22 07:44] LABS: INR 1.86 (0.93-1.08); PROTHROMBIN TIME 21.7 SECONDS (9.4-12.5)
[2017-04-22 07:47] LABS: CALCIUM 9.3 mg/dL (8.4-10.5); PARTIAL THROMBOPLASTIN TIME 32.8 Seconds (25.1-36.5)
--- NOTE | 2017-04-22 08:00 | CP.PCM.PN ---
Subjective - Date & Time of Evaluation Date of Evaluation: 04/22/17 Time of Evaluation: 07:00 - Subjective Subjective: Stable on 3R. She feels better but continued left heel/foot pain. No CP. Edema minimal now. I spoke with her daughter in yesterday. V/S noted V. Paced. PE: Lungs: few rhonchi Cor: S1S2 Abd.: soft Ext: min. edema Neuro.: alert I/O= 1206/1500 recorded Labs noted: INR= 1.86, Cr.= 1.4, U.A was 10.2 Foot Xrays noted. Objective - Vital Signs/Intake and Output Vital Signs (last 24 hours): Temp Pulse Resp BP Pulse Ox 97.6 F 70 20 104/61 98 04/22/17 06:00 04/22/17 06:00 04/22/17 06:00 04/22/17 06:00 04/22/17 06:00 Intake and Output: 04/22/17 04/22/17 06:59 18:59 Intake Total 1206 Output Total 1500 Balance -294 - Medications Medications: Current Medications Colchicine (Colocrys) 0.6 mg PO BID [facility] Last Admin: 04/21/17 18:37 Dose: 0.6 mg Digoxin (Digoxin) 0.125 mg PO 1400 [facility] Last Admin: 04/21/17 14:58 Dose: 0.125 mg Furosemide (Lasix) 40 mg IVP BID [facility] Last Admin: 04/21/17 18:37 Dose: 40 mg Milrinone Lactate/Dextrose (Primacor 20mg/100ml D5w) 100 mls @ 4.409 mls/hr IV .[id number] [facility]; 0.2 MCG/KG/MIN PRN Reason: Protocol Last Admin: 04/21/17 23:07 Dose: 0.2 mcg/kg/min, 4.409 mls/hr Isosorbide Mononitrate (Imdur) 60 mg PO 0600 [facility] Last Admin: 04/22/17 05:16 Dose: 60 mg Levothyroxine Sodium (Synthroid) 112 mcg PO 0600 [facility] Last Admin: 04/22/17 05:16 Dose: 112 mcg Losartan Potassium (Cozaar) 100 mg PO DAILY [facility] Last Admin: 04/21/17 10:38 Dose: 100 mg Metoprolol Tartrate (Lopressor) 25 mg PO BID [facility] Last Admin: 04/21/17 18:37 Dose: 25 mg Spironolactone (Aldactone) 25 mg PO BID [facility] Last Admin: 04/21/17 18:37 Dose: 25 mg Tramadol HCl (Ultram) 50 mg PO BID PRN PRN Reason: Pain, moderate (4-7) Last Admin: 04/22/17 05:16 Dose: 50 mg Warfarin Sodium (Coumadin) 5 mg PO 1800 [facility] PRN Reason: Protocol - Labs Labs: 04/21/17 06:30 04/22/17 07:15 PT 21.7 SECONDS (9.4-12.5) H 04/22/17 07:15 INR 1.86 (0.93-1.08) H 04/22/17 07:15 APTT 32.8 Seconds (25.1-36.5) 04/22/17 07:15 Assessment and Plan - Assessment and Plan (Free Text) Assessment: Dyspnea/Edema/Orthopnea, improved CHF IV, Home milrinone infusion 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 Podiatry eval. Continue colchicine to BID Warfarin 6 mg today Monitor: labs, INR, I/O, sats., etc PT/OOB as mireille
[2017-04-22 08:30] LABS: MAGNESIUM 1.9 mg/dL (1.7-2.2)
[2017-04-22] MEDS ORDERED: [UNRECOGNIZED DRUG - OTHER] IV SCH (10:00)
[2017-04-22] MEDS: Milrinone 20mg/100ml D5W 100 ML IV SCH ×2 (10:00→19:23)
[2017-04-22] MEDS ORDERED: MILRINONE 20 MG/100 ML IV SCH (10:00)
[2017-04-22] MEDS ORDERED: MethylPREDNISolone 40 mg Vial IVP ONE ×2 (12:12→14:40)
--- NOTE | 2017-04-22 13:00 | CP.PCM.DIS ---
<Mark Schultz - Last Filed: 04/22/17 15:12> Provider - Provider Date of Admission: 04/19/17 13:54 Attending physician: Marleny Man MD Primary care physician: Boaz Green MD Consults: Cardio: uQinton Time Spent in preparation of Discharge (in minutes): 35 Diagnosis - Discharge Diagnosis (1) HFrEF (heart failure with reduced ejection fraction) Status: Chronic Priority: High Comment: Ejection fraction 8% (2) CKD (chronic kidney disease) Status: Chronic Priority: Medium (3) Osteoarthritis Status: Chronic Priority: High Comment: extensive OA in bilateral feet (4) Gout Status: Chronic Priority: Medium (5) Pedal edema Status: Chronic Priority: Medium Hospital Course - Lab Results Lab Results: Most Recent Lab Values WBC 7.6 10^3/ul (4.5-11.0) 04/21/17 06:30 RBC 3.77 10^6/uL (3.5-6.1) 04/21/17 06:30 Hgb 10.8 g/dL (12.0-16.0) L 04/21/17 06:30 Hct 33.8 % (36.0-48.0) L 04/21/17 06:30 MCV 89.7 fl (80.0-105.0) 04/21/17 06:30 MCH 28.6 pg (25.0-35.0) 04/21/17 06:30 MCHC 32.0 g/dl (31.0-37.0) 04/21/17 06:30 RDW 17.0 % (11.5-14.5) H 04/21/17 06:30 Plt Count 204 10^3/uL (120.0-450.0) 04/21/17 06:30 MPV 10.6 fl (7.0-11.0) 04/21/17 06:30 Gran % 59.8 % (50.0-68.0) 04/21/17 06:30 Lymph % (Auto) 26.4 % (22.0-35.0) 04/21/17 06:30 [place] % (Auto) 9.3 % (1.0-6.0) H 04/21/17 06:30 Eos % (Auto) 3.8 % (1.5-5.0) 04/21/17 06:30 Baso % (Auto) 0.7 % (0.0-3.0) 04/21/17 06:30 Gran # 4.57 (1.4-6.5) 04/21/17 06:30 Lymph # (Auto) 2.0 (1.2-3.4) 04/21/17 06:30 [place] # (Auto) 0.7 (0.1-0.6) H 04/21/17 06:30 Eos # (Auto) 0.3 (0.0-0.7) 04/21/17 06:30 Baso # (Auto) 0.05 K/mm3 (0.0-2.0) 04/21/17 06:30 PT 21.7 SECONDS (9.4-12.5) H 04/22/17 07:15 INR 1.86 (0.93-1.08) H 04/22/17 07:15 APTT 32.8 Seconds (25.1-36.5) 04/22/17 07:15 Sodium 135 mmol/L (132-148) 04/22/17 07:15 Potassium 3.9 mmol/L (3.6-5.0) 04/22/17 07:15 Chloride 90 mmol/L (98-107) L 04/22/17 07:15 Carbon Dioxide 35 mmol/L (21-33) H 04/22/17 07:15 Anion Gap 14 (10-20) 04/22/17 07:15 BUN 38 mg/dL (7-21) H 04/22/17 07:15 Creatinine 1.4 mg/dl (0.7-1.2) H 04/22/17 07:15 Est GFR ( Amer) 43 04/22/17 07:15 Est GFR (Non-Af Amer) 36 04/22/17 07:15 Random Glucose 99 mg/dL (70-110) 04/22/17 07:15 Uric Acid 10.2 mg/dL (2.5-6.2) H 04/19/17 11:30 Calcium 9.3 mg/dL (8.4-10.5) 04/22/17 07:15 Phosphorus 3.4 mg/dL (2.5-4.5) 04/22/17 07:15 Magnesium 1.9 mg/dL (1.7-2.2) 04/22/17 07:15 Total Bilirubin 0.9 mg/dL (0.2-1.3) 04/18/17 17:30 AST 38 U/L (14-36) H 04/18/17 17:30 ALT 36 U/L (7-56) 04/18/17 17:30 Alkaline Phosphatase 126 U/L (38-126) 04/18/17 17:30 Total Creatine Kinase 30 U/L (35-230) L 04/18/17 17:30 Troponin I 0.07 ng/mL D 04/19/17 07:45 NT-Pro-B Natriuret Pep 5500 pg/mL (0-450) H 04/18/17 17:30 Total Protein 7.2 g/dL (5.8-8.3) 04/18/17 17:30 Albumin 3.6 g/dL (3.0-4.8) 04/18/17 17:30 Globulin 3.7 gm/dL 04/18/17 17:30 Albumin/Globulin Ratio 1.0 (1.1-1.8) L 04/18/17 17:30 Digoxin 0.6 ng/mL (0.8-2.0) L 04/19/17 07:45 Influenza Typ A,B (EIA) Negative for flu a/b (NEGATIVE) 04/18/17 17:20 - Hospital Course Hospital Course: This is an 86 year old AA female with PMHx of Systolic CHF with EF of 8% and ICD placement on chronic IV milrinone therapy, A-fib on Coumadin, hypothyroidism , and gout admitted for lower extremity edema and pain. She was being treated for LE edema, LE pain, and need for IV diuresis (having failed PO diuretics). Today, she reports normal breathing (states her breathing was fine for several days), improved but still present bilateral foot pain, and improved leg swelling. With additional pain control, she was able to ambulate and is a candidate for rehab, as per PT. While here, she was also seen by Cardio, who recommended continued IV diuresis and increased dosing of her Coumadin while inpatient. She was given a dose of IV solumedrol and started on a Medrol dose pack for her foot pain as per Cardio. Patient was cleared for placement at Sub- acute rehab, and all home medications were continued, with the exception of her home Lasix, which was continued as 40mg PO BID, the dosing she was placed on by Cardio prior to this hospitalization. She was instructed to continue all home meds upon discharge to home, and to follow up with her PMD and her Chief Science Officer within 1 week of discharge. She expressed understanding and agreement with these instructions, all questions were answered to her satisfaction, and she was then discharged to sub-acute rehab. Patient seen, reviewed, and discussed with attending, Dr. Man. Discharge Exam - Head Exam Head Exam: ATRAUMATIC, NORMAL INSPECTION, NORMOCEPHALIC - Additional Findings Additional findings: - Constitutional Appears: Non-toxic, No Acute Distress, Chronically Ill - Head Exam Head Exam: ATRAUMATIC, NORMAL INSPECTION, NORMOCEPHALIC - Eye Exam Eye Exam: EOMI, Normal appearance. absent: Conjunctival injection, Scleral icterus Pupil Exam: absent: Irregular, Unequal - ENT Exam ENT Exam: Mucous Membranes Moist - Neck Exam Neck Exam: Normal Inspection - Respiratory Exam Respiratory Exam: Rales (bibasilar, improved), NORMAL BREATHING PATTERN. absent : Accessory Muscle Use, Chest Wall Tenderness, Decreased Breath Sounds, Rhonchi , Wheezes, Stridor - Cardiovascular Exam Cardiovascular Exam: REGULAR RHYTHM, RRR, +S1, +S2, Murmur (blowing holosystolic murmur, most prominent at left 3rd intercostal space, unchanged). absent: Bradycardia, Tachycardia, Irregular Rhythm, JVD, +S4 - GI/Abdominal Exam GI & Abdominal Exam: Soft, Normal Bowel Sounds. absent: Distended, Firm, Rigid , Tenderness - Extremities Exam Additional comments: Chronic skin changes at bilateral feet (cobblestoning of skin), dry/waxy appearing skin on bilateral LE from ankles to below knees No swelling of bilateral knees +1 pitting edema in bilateral LE, from feet to bottom 1/3rd of shins Moderately tender to palpation at plantar midpoint and plantar heel regions of both feet, L > R - Neurological Exam Neurological Exam: Alert, Awake, Oriented x3 - Psychiatric Exam Psychiatric exam: Normal Affect and Mood - Skin Skin Exam: Dry, Intact, Normal Color, Warm Discharge Plan - Discharge Medications Prescriptions: Colchicine [Colcrys] 0.6 mg PO BID #60 tablet Furosemide [Lasix] 40 mg PO BID #60 tab Warfarin [Coumadin] 6 mg PO 1800 1 Days #2 tab - Follow Up Plan Condition: FAIR Disposition: REHAB FACILITY/REHAB UNIT Instructions: Heart Failure (ED) Additional Instructions: Please take all new medications as prescribed. Please resume all home medications. Please follow up with your PMD and your Chief Science Officer within 1 week of discharge (referrals provided). If you experience new or concerning symptoms, please return the the hospital. Referrals: Juan Jose Alcantara MD [Staff Provider] - Boaz Green MD [Primary Care Provider] - <Marleny Man - Last Filed: 04/22/17 16:51> Provider - Provider Date of Admission: 04/19/17 13:54 Attending physician: Marleny Man MD Primary care physician: Boaz Green MD Hospital Course - Lab Results Lab Results: Most Recent Lab Values WBC 7.6 10^3/ul (4.5-11.0) 04/21/17 06:30 RBC 3.77 10^6/uL (3.5-6.1) 04/21/17 06:30 Hgb 10.8 g/dL (12.0-16.0) L 04/21/17 06:30 Hct 33.8 % (36.0-48.0) L 04/21/17 06:30 MCV 89.7 fl (80.0-105.0) 04/21/17 06:30 MCH 28.6 pg (25.0-35.0) 04/21/17 06:30 MCHC 32.0 g/dl (31.0-37.0) 04/21/17 06:30 RDW 17.0 % (11.5-14.5) H 04/21/17 06:30 Plt Count 204 10^3/uL (120.0-450.0) 04/21/17 06:30 MPV 10.6 fl (7.0-11.0) 04/21/17 06:30 Gran % 59.8 % (50.0-68.0) 04/21/17 06:30 Lymph % (Auto) 26.4 % (22.0-35.0) 04/21/17 06:30 [place] % (Auto) 9.3 % (1.0-6.0) H 04/21/17 06:30 Eos % (Auto) 3.8 % (1.5-5.0) 04/21/17 06:30 Baso % (Auto) 0.7 % (0.0-3.0) 04/21/17 06:30 Gran # 4.57 (1.4-6.5) 04/21/17 06:30 Lymph # (Auto) 2.0 (1.2-3.4) 04/21/17 06:30 [place] # (Auto) 0.7 (0.1-0.6) H 04/21/17 06:30 Eos # (Auto) 0.3 (0.0-0.7) 04/21/17 06:30 Baso # (Auto) 0.05 K/mm3 (0.0-2.0) 04/21/17 06:30 PT 21.7 SECONDS (9.4-12.5) H 04/22/17 07:15 INR 1.86 (0.93-1.08) H 04/22/17 07:15 APTT 32.8 Seconds (25.1-36.5) 04/22/17 07:15 Sodium 135 mmol/L (132-148) 04/22/17 07:15 Potassium 3.9 mmol/L (3.6-5.0) 04/22/17 07:15 Chloride 90 mmol/L (98-107) L 04/22/17 07:15 Carbon Dioxide 35 mmol/L (21-33) H 04/22/17 07:15 Anion Gap 14 (10-20) 04/22/17 07:15 BUN 38 mg/dL (7-21) H 04/22/17 07:15 Creatinine 1.4 mg/dl (0.7-1.2) H 04/22/17 07:15 Est GFR ( Amer) 43 04/22/17 07:15 Est GFR (Non-Af Amer) 36 04/22/17 07:15 Random Glucose 99 mg/dL (70-110) 04/22/17 07:15 Uric Acid 10.2 mg/dL (2.5-6.2) H 04/19/17 11:30 Calcium 9.3 mg/dL (8.4-10.5) 04/22/17 07:15 Phosphorus 3.4 mg/dL (2.5-4.5) 04/22/17 07:15 Magnesium 1.9 mg/dL (1.7-2.2) 04/22/17 07:15 Total Bilirubin 0.9 mg/dL (0.2-1.3) 04/18/17 17:30 AST 38 U/L (14-36) H 04/18/17 17:30 ALT 36 U/L (7-56) 04/18/17 17:30 Alkaline Phosphatase 126 U/L (38-126) 04/18/17 17:30 Total Creatine Kinase 30 U/L (35-230) L 04/18/17 17:30 Troponin I 0.07 ng/mL D 04/19/17 07:45 NT-Pro-B Natriuret Pep 5500 pg/mL (0-450) H 04/18/17 17:30 Total Protein 7.2 g/dL (5.8-8.3) 04/18/17 17:30 Albumin 3.6 g/dL (3.0-4.8) 04/18/17 17:30 Globulin 3.7 gm/dL 04/18/17 17:30 Albumin/Globulin Ratio 1.0 (1.1-1.8) L 04/18/17 17:30 Digoxin 0.6 ng/mL (0.8-2.0) L 04/19/17 07:45 Influenza Typ A,B (EIA) Negative for flu a/b (NEGATIVE) 04/18/17 17:20 Attending/Attestation - Attestation I have personally seen and examined this patient.: Yes I have fully participated in the care of the patient.: Yes I have reviewed all pertinent clinical information, including history, physical exam and plan: Yes Notes (Text): 04/22/17 16:49 86 year old female who past medical history of systolic CHF s/p ICD, on chronic iv milrinone infusion, afib on coumadin, and gout who presented with dyspnea on exertion, LE edema and bilateral feet pain. CXR showed chronic congestion and PBNP was elevated. She was maintained on iv lasix for diuresis in addition to her home medications including iv milrinone with improvement of symptoms. Xray of the feet were reviewed as above. She was on colchichine for gout in addition to prn tramadol for pain. After discussing with Dr. Alcantara she was started on short course of steroids. She was seen by PT and pain is improving. She is on coumadin for history of afib. Continue with monitor creatinine closely for CKD. Overall her symptoms have improved. She is discharged to [facility]. Monitor INR and adjust coumadin accordingly. Follow up with pmd and flatcar whacker. Marleny Man MD Hospitalist.
[2017-04-22] MEDS: Digoxin 125 mcg (0.125 mg) Tab PO SCH (14:43)
[2017-04-22 14:45] VITALS: PULSE 70
[2017-04-22 18:23] VITALS: RESP 19; TEMP 98; O2SAT 90
[2017-04-22 19:26] VITALS: BP 125/52; PULSE 70
== END 2017-04-22 18:55 | DRG 292 ==
LOC: ED 11:56 → ERH 18:37 → 3RSO 04-19 13:14 → OBSVTOIN 04-19 13:54
PROVIDERS: ADMIT Hospitalist; ATTEND Internal Medicine
DX: I50.23 Acute on chronic systolic (congestive) heart failure (principal); I42.9 Cardiomyopathy, unspecified; I08.1 Rheumatic disorders of both mitral and tricuspid valves; I27.20 Pulmonary hypertension, unspecified; E03.9 Hypothyroidism, unspecified; I48.2 Chronic atrial fibrillation; J44.9 Chronic obstructive pulmonary disease, unspecified; M10.9 Gout, unspecified; M19.90 Unspecified osteoarthritis, unspecified site; N18.9 Chronic kidney disease, unspecified; Z79.01 Long term (current) use of anticoagulants; Z79.899 Other long term (current) drug therapy; Z86.73 Personal history of transient ischemic attack (TIA), and cerebral infarction without residual deficits; Z87.891 Personal history of nicotine dependence; Z90.49 Acquired absence of other specified parts of digestive tract; Z95.810 Presence of automatic (implantable) cardiac defibrillator; Z88.5 Allergy status to narcotic agent; Z88.0 Allergy status to penicillin; R40.2412 Glasgow coma scale score 13-15, at arrival to emergency department

== ENCOUNTER 2017-07-15 14:14 | Inpatient (IN) | payer MEDICARE, SELFPAY ==
[2017-07-15 14:15] VITALS: PULSE 70
[2017-07-15] MEDS ORDERED: Morphine 4 mg/ml ISec IVP STA ×2 (14:45→22:43)
--- NOTE | 2017-07-15 14:48 | ED PDOC ---
Arrival/HPI - General Chief Complaint: Lower Extremity Problem/Injury Time Seen by Provider: 07/15/17 14:21 Historian: Patient, Family (2 daughters) - History of Present Illness Time/Duration: Other (Several days) Symptom Onset: Gradual Symptom Course: Worsening Quality: Aching Severity Level: Severe Activities at Onset: Rest Associated Symptoms (Text): 07/15/17 14:46 Patient complains of a several day history of worsening dyspnea on exertion. There is no dyspnea at rest. No chest pain or palpitations. She also complains of severe bilateral lower extremity pain. She is unable to ambulate. She lives at home alone. She is unable to care for herself. There is a milrinone drip running. She has an ejection fraction of approximately 8%. There is chronic bilateral lower extremity pain. Her tramadol is no longer helping. Past Medical History - Infectious Disease Hx of Infectious Diseases: None - Tetanus Immunization Tetanus Immunization: Unknown - Reproductive Menopause: Yes - Cardiac Hx Cardiac Disorders: Yes (PACEMAKER -AICD DEVICE) Hx Congestive Heart Failure: Yes - Pulmonary Hx Chronic Obstructive Pulmonary Disease (COPD): Yes - Neurological HX Cerebrovascular Accident: Yes - HEENT Hx HEENT Disorder: Yes Hx Cataracts: Yes - Renal Hx Renal Disorder: No - Endocrine/Metabolic Hx Hypothyroidism: Yes - Hematological/Oncological Hx Blood Disorders: No - Integumentary Hx Dermatological Disorder: Yes (b/l pedal edema) - Musculoskeletal/Rheumatological Hx Musculoskeletal Disorders: Yes Hx Falls: Yes Hx Unsteady Gait: Yes (WALKER) - Gastrointestinal Hx Gastrointestinal Disorders: Yes (CHOLECYSTECTOMY,HERNIORHAPPHY) - Genitourinary/Gynecological Hx Genitourinary Disorders: No - Psychiatric Hx Emotional Abuse: No Hx Physical Abuse: No Hx Substance Use: No - Surgical History Hx Cholecystectomy: Yes - Anesthesia Hx Anesthesia: Yes Hx Anesthesia Reactions: No Hx Malignant Hyperthermia: No - Suicidal Assessment Feels Threatened In Home Enviroment: No Family/Social History - Physician Review Nursing Documentation Reviewed: Yes Family/Social History: Unknown Family HX Smoking Status: Former Smoker Hx Alcohol Use: No Hx Substance Use: No Allergies/Home Meds Allergies/Adverse Reactions: Allergies codeine Allergy (Verified 04/19/17 12:50) SHORTNESS OF BREATH Penicillins Allergy (Verified 04/19/17 12:50) RASH Home Medications: Home Meds Medication Instructions Recorded Confirmed Digoxin [Digitek] 125 mcg PO DAILY 04/19/17 07/15/17 Isosorbide Mononitrate ER [Imdur 30 mg PO DAILY 04/19/17 07/15/17 ER] Levothyroxine [Synthroid] 112 mcg PO DAILY 04/19/17 07/15/17 Losartan [Cozaar] 100 mg PO DAILY 04/19/17 07/15/17 Metoprolol Succinate 50 mg PO DAILY 04/19/17 07/15/17 Warfarin Sodium [Jantoven] 3 mg PO DAILY 04/19/17 07/15/17 traMADol [Ultram] 50 mg PO QOTHERDAY 04/19/17 07/15/17 Review of Systems - Physician Review All systems were reviewed & negative as marked: Yes - Review of Systems Constitutional: Fatigue. absent: Fevers Respiratory: SOB. absent: Cough, Wheezing Cardiovascular: absent: Chest Pain, Palpitations, Syncope Gastrointestinal: absent: Abdominal Pain, Nausea, Vomiting Musculoskeletal: Arthralgias, Myalgias. absent: Back Pain, Neck Pain Neurological: absent: Headache, Dizziness, Focal Weakness Physical Exam Vital Signs Temp Pulse Resp BP Pulse Ox 07/15/17 15:26 127/80 07/15/17 14:15 97 F L 70 18 127/80 96 Temperature: Afebrile Blood Pressure: Normal Pulse: Regular Respiratory Rate: Normal Appearance: Positive for: Well-Appearing, Non-Toxic, Uncomfortable Pain Distress: Moderate Mental Status: Positive for: Alert and Oriented X 3 - Systems Exam Head: Present: Atraumatic, Normocephalic Pupils: Present: PERRL Extroacular Muscles: Present: EOMI Conjunctiva: Present: Normal Mouth: Present: Moist Mucous Membranes Pharnyx: No: ERYTHEMA, EXUDATE, TONSILS ENLARGED Neck: Present: Normal Range of Motion Respiratory/Chest: Present: Clear to Auscultation, Good Air Exchange, Decreased Breath Sounds. No: Respiratory Distress, Accessory Muscle Use Cardiovascular: Present: Regular Rate and Rhythm, Normal S1, S2. No: Murmurs Abdomen: No: Tenderness, Distention, Peritoneal Signs, Rebound, Guarding Upper Extremity: Present: Normal Inspection. No: Cyanosis, Edema Lower Extremity: Present: Normal Inspection, NORMAL PULSES, Tenderness, Neurovascularly Intact. No: Edema, CALF TENDERNESS, Cyanosis, Normal ROM, Henny 's Sign, Swelling, Erythema, Deformity, Temperature Abnormalties Neurological: Present: GCS=15, CN II-XII Intact, Speech Normal, Motor Func Grossly Intact Skin: Present: Warm, Dry, Normal Color. No: Rashes Psychiatric: Present: Alert, Oriented x 3, Normal Insight, Normal Concentration Medical Decision Making ED Course and Treatment: 07/15/17 15:16 Chest X-ray Creator : Riky Blair MD FINDINGS: LUNGS: No active pulmonary disease. PLEURA: No significant pleural effusion identified, no pneumothorax apparent. CARDIOVASCULAR: Moderate cardiomegaly OSSEOUS STRUCTURES: No significant abnormalities. VISUALIZED UPPER ABDOMEN: Normal. OTHER FINDINGS: Pacemaker IMPRESSION: No active disease. 07/15/17 16:29 Patient's BNP is actually better than usual. Patient's troponin is in the indeterminate range which is where she usually is. Her renal failure has worsened, and she has an elevated potassium. I believe that the patient will need care home placement or living home health aide as the family is unable to care for her. Her leg pain is better with morphine. Discussed with , who will admit. 07/15/17 16:36 EKG is pacing rate approximately 70 - Lab Interpretations Lab Results: 07/15/17 15:27 07/15/17 15:27 Lab Results 07/15/17 15:27: Sodium 138, Potassium 5.5 H, Chloride 94 L, Carbon Dioxide 29, Anion Gap 21 H, BUN 56 H, Creatinine 1.8 H, Est GFR ( Amer) 32, Est GFR ( Non-Af Amer) 27, Random Glucose 105, Calcium 9.5, Magnesium 2.2, Total Bilirubin 1.3, AST 50 H D, ALT 47, Alkaline Phosphatase 192 H D, Lactate Dehydrogenase 666, Total Creatine Kinase 28 L, Troponin I 0.05 D, NT-Pro-B Natriuret Pep 3110 H, Total Protein 7.9, Albumin 3.9, Globulin 4.0, Albumin/ Globulin Ratio 1.0 L 07/15/17 15:27: WBC 11.8 H D, RBC 4.16, Hgb 12.9 D, Hct 38.5, MCV 92.5, MCH 31.0, MCHC 33.5, RDW 16.3 H, Plt Count 216, MPV 10.5, Gran % 65.1, Lymph % (Auto ) 19.6 L, [place] % (Auto) 13.7 H, Eos % (Auto) 1.2 L, Baso % (Auto) 0.4, Gran # 7.67 H, Lymph # (Auto) 2.3, [place] # (Auto) 1.6 H, Eos # (Auto) 0.1, Baso # (Auto ) 0.05 - RAD Interpretation Radiology Orders: 07/15/17 14:44 CHEST PORTABLE [RAD] Stat X-ray chest 1 view shows cardiomegaly with a pacemaker but no infiltrate or effusion. Sound Ranging Crewmember: ED Physician - Medication Orders Current Medication Orders: Discontinued Medications Dextrose (Dextrose 50% Inj) 50 ml IVP STAT STA Stop: 07/15/17 16:22 Furosemide (Lasix) 40 mg IVP STAT STA Stop: 07/15/17 14:45 Last Admin: 07/15/17 15:26 Dose: 40 mg MAR Blood Pressure Document 07/15/17 15:26 SRE (Rec: 07/15/17 15:26 SRE [id number]) Blood Pressure Blood Pressure (100/60-150/90 mm Hg) 127/80 IVP Administration Document 07/15/17 15:26 SRE (Rec: 07/15/17 15:26 SRE [id number]) Charges for Administration # of IVP Administrations 1 Insulin Human Regular (Humulin R) 10 units IV ONCE STA Stop: 07/15/17 16:22 Morphine Sulfate (Morphine) 4 mg IVP STAT STA Stop: 07/15/17 14:46 Last Admin: 07/15/17 15:27 Dose: 4 mg [facility] Pain Assessment Document 07/15/17 15:27 SRE (Rec: 07/15/17 15:27 SRE [id number]) Pain Reassessment Is this a pain reassessment? Yes Sleep Is patient sleeping during reassessment? No Presence of Pain Presence of Pain Yes Pain Scale Used Pain Scale Used Numeric Location Left, Right or Bilateral Bilateral Pain Location Body Site Knee Description Description Constant IVP Administration Document 07/15/17 15:27 SRE (Rec: 07/15/17 15:27 SRE [id number]) Charges for Administration # of IVP Administrations 1 Ondansetron HCl (Zofran Inj) 4 mg IVP ONCE ONE Stop: 07/15/17 14:46 Last Admin: 07/15/17 15:27 Dose: 4 mg IVP Administration Document 07/15/17 15:27 SRE (Rec: 07/15/17 15:27 SRE [id number]) Charges for Administration # of IVP Administrations 1 Disposition/Present on Arrival - Present on Arrival Any Indicators Present on Arrival: No History of DVT/PE: No History of Uncontrolled Diabetes: No Urinary Catheter: No History of Decub. Ulcer: No History Surgical Site Infection Following: None - Disposition Have Diagnosis and Disposition been Completed?: Yes Diagnosis: Congestive heart failure, CKD (chronic kidney disease), Troponin level elevated , Hyperkalemia Disposition: HOSPITALIZED Disposition Time: 16:30 Patient Plan: Admission, Telemetry Patient Problems: Current Active Problems Problem Status Onset Hyperkalemia Acute Troponin level elevated Acute CKD (chronic kidney disease) Chronic Congestive heart failure Chronic Condition: SERIOUS Discharge Instructions (ExitCare): Heart Failure (ED) Referrals: Boaz Green MD [Primary Care Provider] - Follow up with primary Forms: [employer] (Arabic)
--- NOTE | 2017-07-15 15:13 | RAD ---
HISTORY: sob COMPARISON: 04/18/2017 FINDINGS: LUNGS: No active pulmonary disease. PLEURA: No significant pleural effusion identified, no pneumothorax apparent. CARDIOVASCULAR: Moderate cardiomegaly OSSEOUS STRUCTURES: No significant abnormalities. VISUALIZED UPPER ABDOMEN: Normal. OTHER FINDINGS: Pacemaker IMPRESSION: No active disease.
[2017-07-15 15:44] LABS: BASO # 0.05 K/mm3 (0.0-2.0); BASO % 0.4 % (0.0-3.0); EOS # 0.1 (0.0-0.7); EOS % 1.2 % (1.5-5.0); GRAN # 7.67 (1.4-6.5); GRAN % 65.1 % (50.0-68.0); HEMOGLOBIN 12.9 g/dL (12.0-16.0); LYMPH # 2.3 (1.2-3.4); LYMPH % 19.6 % (22.0-35.0); MEAN CELL VOLUME 92.5 fl (80.0-105.0); MEAN CORPUSCULAR HGB CONC 33.5 g/dl (31.0-37.0); MEAN PLATELET VOLUME 10.5 fl (7.0-11.0); MONO # 1.6 (0.1-0.6); MONO % 13.7 % (1.0-6.0); RBC 4.16 10^6/uL (3.5-6.1); RED CELL DISTRIBUTION WIDTH 16.3 % (11.5-14.5); WHITE BLOOD COUNT 11.8 10^3/ul (4.5-11.0)
[2017-07-15 16:17] LABS: ALBUMIN 3.9 g/dL (3.0-4.8); CALCIUM 9.5 mg/dL (8.4-10.5)
[2017-07-15 16:18] LABS: TROPONIN I 0.05 ng/mL
[2017-07-15] MEDS ORDERED: Insulin Regular 1 UNITS/0.01 ML ML IV STA (16:21)
[2017-07-15] MEDS ORDERED: Dextrose 50% SYRINGE Inj (50 ml) IVP STA (16:21)
[2017-07-15 16:43] LABS: INR 3.16 (0.93-1.08); PARTIAL THROMBOPLASTIN TIME 41.6 Seconds (25.1-36.5); PROTHROMBIN TIME 36.9 SECONDS (9.4-12.5)
[2017-07-15] MEDS ORDERED: Sod Polystyrene Sulf 15 gm/60 ml Susp PO ONE (18:17)
[2017-07-15] MEDS: Milrinone 20mg/100ml D5W 100 ML IV PRN (18:49)
[2017-07-15 19:17] VITALS: BMI 26.8
--- NOTE | 2017-07-15 19:59 | CP.PCM.HP ---
<Radha Quintana - Last Filed: 07/16/17 06:19> History of Present Illness - History of Present Illness History of Present Illness: PGY-2 h&p for hospitalist service 86 year old female with PMH systolic CHF s/p AICD (EF 8% on previous echocardiogram) on milrinone drip, Atrial fibrillation, Hypothyroidism, gout who presents complaining of worsening leg and foot pain as well as dyspnea on excretion. Patient states that the lower extremity pain began on Tuesday morning. She states that she began to have difficult walking. She states that the pain did not improve as the week progressed. She states that she spoke with her cotton weigher operator Dr. Hearn recently. Patient states that she is taking Lasix 40 mg PO BID. Patient states that at baseline with her dyspnea. She denies chest pain and palpitations, fever, chills, abd pain, n/v, diarrhea, constipation, dysurea. Patient was recently in the hospital a few month ago for similar symptoms. At that time patient was discharged to rehab. Patients states that once she was discharged from rehab she was feeling better, and pain in her legs were improved. PMH: Systolic Heart Failure with ICD and on milrinone drip, Atrial Fibrillation , Hypothyroidism, Gout PSH: Laminectomy, Cholecystectomy, Hernia Repair, ICD placement Allergies: codeine (dyspnea), penicillin (rash) Social: Former smoker, quit in 1990. Denies alcohol or illicit drug use. family history: heart disease father PMD: Dr. Green Cuprous Chloride Operator: Dr. Hearn Present on Admission - Present on Admission Any Indicators Present on Admission: No Review of Systems - Review of Systems All systems: reviewed and no additional remarkable complaints except Past Patient History - Infectious Disease Hx of Infectious Diseases: None - Tetanus Immunizations Tetanus Immunization: Unknown - Past Medical History & Family History Past Medical History?: Yes - Past Social History Smoking Status: Former Smoker - CARDIAC Hx Cardiac Disorders: Yes (PACEMAKER -AICD DEVICE) Hx Congestive Heart Failure: Yes - PULMONARY Hx Chronic Obstructive Pulmonary Disease (COPD): Yes - NEUROLOGICAL HX Cerebrovascular Accident: Yes - HEENT Hx HEENT Problems: Yes Hx Cataracts: Yes - RENAL Hx Chronic Kidney Disease: No - ENDOCRINE/METABOLIC Hx Hypothyroidism: Yes - HEMATOLOGICAL/ONCOLOGICAL Hx Blood Disorders: No - INTEGUMENTARY Hx Dermatological Problems: Yes (b/l pedal edema) - MUSCULOSKELETAL/RHEUMATOLOGICAL Hx Musculoskeletal Disorders: Yes Hx Falls: Yes Hx Unsteady Gait: Yes (WALKER) - GASTROINTESTINAL Hx Gastrointestinal Disorders: Yes (CHOLECYSTECTOMY,HERNIORHAPPHY) - GENITOURINARY/GYNECOLOGICAL Hx Genitourinary Disorders: No - PSYCHIATRIC Hx Emotional Abuse: No Hx Physical Abuse: No Hx Substance Use: No - SURGICAL HISTORY Hx Cholecystectomy: Yes - ANESTHESIA Hx Anesthesia: Yes Hx Anesthesia Reactions: No Hx Malignant Hyperthermia: No Meds Allergies/Adverse Reactions: Allergies Allergy/AdvReac Type Severity Reaction Status Date / Time codeine Allergy SHORTNESS Verified 07/16/17 04:51 OF BREATH Penicillins Allergy RASH Verified 07/16/17 04:51 Physical Exam - Constitutional Appears: No Acute Distress, Chronically Ill - Head Exam Head Exam: ATRAUMATIC, NORMOCEPHALIC - Eye Exam Eye Exam: EOMI, Normal appearance - ENT Exam ENT Exam: Mucous Membranes Moist - Respiratory Exam Respiratory Exam: Clear to Auscultation Bilateral, NORMAL BREATHING PATTERN. absent: Decreased Breath Sounds, Rales, Rhonchi, Wheezes, Respiratory Distress - Cardiovascular Exam Cardiovascular Exam: REGULAR RHYTHM, +S1, +S2. absent: Bradycardia, Tachycardia , Systolic Murmur - GI/Abdominal Exam GI & Abdominal Exam: Normal Bowel Sounds, Soft. absent: Distended, Firm, Guarding, Tenderness - Extremities Exam Extremities exam: Positive for: pedal edema, tenderness (bilateral feet) - Neurological Exam Neurological exam: Alert, Oriented x3 - Skin Skin Exam: Dry, Intact, Normal Color, Warm Results - Vital Signs Recent Vital Signs: Last Vital Signs Temp 98.6 F 07/15/17 19:19 Pulse 71 07/15/17 19:19 Resp 18 07/15/17 19:19 BP 129/70 07/15/17 19:19 Pulse Ox 97 07/15/17 18:25 - Labs Result Diagrams: 07/15/17 15:27 07/15/17 15:27 Assessment & Plan - Assessment and Plan (Free Text) Assessment: 86 year old female with PMH of Systolic CHF with EF of 8% and ICD placement on chronic IV milrinone therapy, A-fib on Coumadin, hypothyroidism, and gout admitted for lower extremity pain and difficulty ambulating found to have DAPHNE on CKD as well as hyperkalemia. Plan: lower extremity pain and pedal edema - Unlikely due to CHF exacerbation, at baseline - Received 40 mg IV lasix in ED, will hold lasix due to DAPHNE reevaluate tomorrow - Last echo 03/2016 showed EF 8%. Severe systolic dysfunction - cont home IV milrinone - Continue home Digoxin, Imdur - hold losartan due to daphne - Strict I&Os - Daily weights - PT DAPHNE on CKD - hold losartan and lasix - cont Monitor - Avoid nephrotoxic agents - ordered urine lytes to calculate Fe urea - consider nephro consult if not improved Hyperkalemia - patient received insulin with D50 in ED - will give kayexalate - repeat in AM supratheraputic INR - hold warfarin - currently patient is taking 6mg and 3mg on alternating days - will repeat in AM Leukocytosis- mild - possible reactive vs infection - afebrile - will continue to monitor history of CHF - at baseline per patient - continue milirone drip - consult cotton weigher operator Dr. Hearn History of Atrial fibrillation - Rate controlled - hold Warfarin due to supra therapeutic INR - INR daily History of Hypothyroidism - Continue Synthroid History of Gout - Continue Colchicine, does not require renal dosing, GFR above 30 Prophylaxis DVT: supratheraputic INR GI: Protonix <Marleny Man A - Last Filed: 07/16/17 06:58> Results - Vital Signs Recent Vital Signs: Last Vital Signs Temp 98.0 F 07/16/17 05:54 Pulse 70 07/16/17 05:54 Resp 20 07/16/17 05:54 BP 127/61 07/16/17 05:54 Pulse Ox 100 07/16/17 05:54 - Labs Result Diagrams: 07/15/17 15:27 07/15/17 15:27 Labs: Laboratory Results - last 24 hr 07/15/17 21:03 Ur Random Creatinine 91 Ur Random Sodium 18 Ur Random Urea Nitrogn 541 Attending/Attestation - Attestation I have personally seen and examined this patient.: Yes I have fully participated in the care of the patient.: Yes I have reviewed all pertinent clinical information: Yes Notes (Text): 07/15/17 86 year old female with past medical history of systolic CHF s/p ICD on chronic milrinone therapy, afib on coumadin, hyothyroidism and CKD who presents wtih lower extremity pain, weakness with difficulty ambulating and chronic dyspnea. She was found to have acute on chronic renal failure and hyperkalemia. CXR is negative. PBNP is elevated but improved from her baseline. She received iv lasix in ER. Will monitor for response, repeat labs in am and reassess. She is on chronic milrinone therapy. She is on digoxin and imdur. Cardiology evaluation is requested. INR is supratherapeutic so her coumadin will be held for tonight. PT evaluation is requested for weakness. Will follow up with recommendations. Will hold losartan for now and repeat bmp to monitor creatinine. She received kayexalate and insulin with D50 in ER for hyperkalemia. Will monitor. Family is at bedside and questions were answered. Marleny Man MD Hospitalist.
[2017-07-15 21:23] LABS: CREATININE,RANDOM URINE 91 mg/dL
[2017-07-15] MEDS ORDERED: Morphine 2 mg/ml ISec IVP STA (22:38)
[2017-07-16] MEDS: Milrinone 20mg/100ml D5W 100 ML IV PRN ×2 (05:01→18:02)
[2017-07-16 07:03] LABS: BASO # 0.03 K/mm3 (0.0-2.0); BASO % 0.3 % (0.0-3.0); EOS # 0.1 (0.0-0.7); EOS % 0.7 % (1.5-5.0); GRAN # 7.17 (1.4-6.5); GRAN % 64.4 % (50.0-68.0); LYMPH # 2.2 (1.2-3.4); LYMPH % 20.1 % (22.0-35.0); MEAN CELL VOLUME 90.8 fl (80.0-105.0); MEAN CORPUSCULAR HEMOGLOBIN 29.9 pg (25.0-35.0); MEAN CORPUSCULAR HGB CONC 32.9 g/dl (31.0-37.0); MEAN PLATELET VOLUME 9.3 fl (7.0-11.0); MONO # 1.6 (0.1-0.6); MONO % 14.5 % (1.0-6.0); RBC 3.68 10^6/uL (3.5-6.1); RED CELL DISTRIBUTION WIDTH 15.7 % (11.5-14.5); WHITE BLOOD COUNT 11.1 10^3/ul (4.5-11.0)
[2017-07-16 07:21] LABS: INR 2.83 (0.93-1.08); PARTIAL THROMBOPLASTIN TIME 38.2 Seconds (25.1-36.5); PROTHROMBIN TIME 33.3 SECONDS (9.4-12.5)
[2017-07-16 07:25] LABS: ALBUMIN 3.7 g/dL (3.0-4.8)
[2017-07-16] MEDS: Metoprolol Succinate 50 mg XL Tab PO SCH (09:17)
[2017-07-16] MEDS: Levothyroxine 112 MCG TAB PO SCH (09:17)
--- NOTE | 2017-07-16 09:41 | CARD ---
APPROVED REPORT EKG Measurement Heart [id number] [id number] <Conclusion> Electronic ventricular pacemaker 100% V. Paced. Atrial fib. No change
[2017-07-16] MEDS ORDERED: Digoxin 125 mcg (0.125 mg) Tab PO SCH (10:00)
--- NOTE | 2017-07-16 13:54 | CP.PCM.PN ---
<Delicia Burciaga - Last Filed: 07/16/17 13:51> Subjective - Date & Time of Evaluation Date of Evaluation: 07/16/17 Time of Evaluation: 13:51 - Subjective Subjective: Patient seen and examined at bedside. No acute events overnight. Reports continued left lower extremity pain. Denies fever, chills, nausea, vomiting, abdominal pain, urinary symptoms, leg swelling. Objective - Vital Signs/Intake and Output Vital Signs (last 24 hours): Temp Pulse Resp BP Pulse Ox 97.8 F 70 18 122/51 L 100 07/16/17 12:00 07/16/17 12:00 07/16/17 12:00 07/16/17 12:00 07/16/17 05:54 Intake and Output: 07/16/17 07/16/17 06:59 18:59 Intake Total 640 Output Total 1050 Balance -410 - Medications Medications: Current Medications Colchicine (Colocrys) 0.6 mg PO BID [facility] Last Admin: 07/16/17 09:18 Dose: 0.6 mg Digoxin (Digoxin) 0.125 mg PO DAILY [facility] Last Admin: 07/16/17 09:17 Dose: 0.125 mg Famotidine (Pepcid) 20 mg PO DAILY [facility] Last Admin: 07/16/17 09:16 Dose: 20 mg Furosemide (Lasix) 40 mg IVP DAILY [facility] Last Admin: 07/16/17 09:17 Dose: 40 mg Milrinone Lactate/Dextrose (Primacor 20mg/100ml D5w) 100 mls @ 8.42 mls/hr IV .[id number] PRN; Protocol; 0.375 MCG/KG/MIN PRN Reason: TITRATE PER MD ORDER Last Admin: 07/16/17 05:01 Dose: 0.375 mcg/kg/min, 8.42 mls/hr Isosorbide Mononitrate (Imdur Er) 30 mg PO DAILY [facility] Last Admin: 07/16/17 09:16 Dose: 30 mg Levothyroxine Sodium (Synthroid) 112 mcg PO DAILY [facility] Last Admin: 07/16/17 09:17 Dose: 112 mcg Metoprolol Succinate (Toprol Xl) 50 mg PO DAILY [facility] Last Admin: 07/16/17 09:17 Dose: 50 mg Tramadol HCl (Ultram) 50 mg PO Q8H PRN PRN Reason: Pain, moderate (4-7) Last Admin: 07/16/17 11:38 Dose: 50 mg Warfarin Sodium (Coumadin) 3 mg PO 1800 Y[facility] PRN Reason: Protocol - Labs Labs: 07/16/17 06:30 07/16/17 06:30 PT 33.3 SECONDS (9.4-12.5) H 07/16/17 06:30 INR 2.83 (0.93-1.08) H 07/16/17 06:30 APTT 38.2 Seconds (25.1-36.5) H 07/16/17 06:30 - Constitutional Appears: Non-toxic, No Acute Distress - Head Exam Head Exam: ATRAUMATIC, NORMOCEPHALIC - Eye Exam Eye Exam: EOMI, PERRL. absent: Conjunctival injection, Nystagmus, Scleral icterus Pupil Exam: NORMAL ACCOMODATION, PERRL. absent: Fixed, Irregular, Unequal - ENT Exam ENT Exam: Mucous Membranes Moist - Neck Exam Neck Exam: Full ROM - Respiratory Exam Respiratory Exam: absent: Chest Wall Tenderness, Rales, Rhonchi, Wheezes, Respiratory Distress, Stridor Additional comments: + mild bibasilar crackles - Cardiovascular Exam Cardiovascular Exam: Irregular Rhythm - Extremities Exam Extremities Exam: absent: Calf Tenderness, Pedal Edema Additional comments: + left foot, mildly swollen - Back Exam Back Exam: NORMAL INSPECTION - Neurological Exam Neurological Exam: Alert, Awake, Oriented x3 - Psychiatric Exam Psychiatric exam: Normal Affect, Normal Mood - Skin Skin Exam: Dry, Normal Color, Warm Assessment and Plan - Assessment and Plan (Free Text) Assessment: 86 year old female with PMH of Systolic CHF with EF of 8% and ICD placement on chronic IV milrinone therapy, A-fib on Coumadin, hypothyroidism, and gout admitted for lower extremity pain and difficulty ambulating, found to have DAPHNE on CKD, hyperkalemia: lower extremity pain and pedal edema: - Unlikely due to CHF exacerbation, at baseline vs gout - Lasix 40 IV daily - Last echo 03/2016 showed EF 8%. Severe systolic dysfunction - cont home IV milrinone - Continue home Digoxin, Imdur - hold losartan due to daphne - Strict I&Os - Daily weights - PT - Colchicine 0.6 BID DAPHNE on CKD: - hold losartan - Cr trending down - Avoid nephrotoxic agents - Feurea 19.1%, prerenal - consider nephro consult if not improved - Monitor daily Cr Hyperkalemia: - resolved - monitor supratheraputic INR: - pt taking coumadin at home, 6 mg and 3 mg on alternating days - resumed warfarin 3 mg - daily INR Leukocytosis- mild - possible reactive vs infection - UA and procal f/u - CXR neg for infiltrate - afebrile - will continue to monitor history of CHF: - at baseline per patient - continue milirone drip - consult plant culture manager Dr. Hearn. appreciate recs. History of Atrial fibrillation: - Rate controlled. home toprol - home Warfarin - INR daily History of Hypothyroidism: - Continue Synthroid Prophylaxis DVT: on warfarin GI: Protonix Case seen and discussed with Dr Man. Delicia Burciaga, PGY1 <Marleny Man - Last Filed: 07/16/17 14:29> Objective - Vital Signs/Intake and Output Vital Signs (last 24 hours): Temp Pulse Resp BP Pulse Ox 97.8 F 70 18 122/51 L 100 07/16/17 12:00 07/16/17 12:00 07/16/17 12:00 07/16/17 12:00 07/16/17 05:54 Intake and Output: 07/16/17 07/16/17 06:59 18:59 Intake Total 640 Output Total 1050 Balance -410 - Medications Medications: Current Medications Colchicine (Colocrys) 0.6 mg PO BID [facility] Last Admin: 07/16/17 09:18 Dose: 0.6 mg Digoxin (Digoxin) 0.125 mg PO DAILY [facility] Last Admin: 07/16/17 09:17 Dose: 0.125 mg Famotidine (Pepcid) 20 mg PO DAILY [facility] Last Admin: 07/16/17 09:16 Dose: 20 mg Furosemide (Lasix) 40 mg IVP DAILY [facility] Last Admin: 07/16/17 09:17 Dose: 40 mg Milrinone Lactate/Dextrose (Primacor 20mg/100ml D5w) 100 mls @ 8.42 mls/hr IV .[id number] PRN; Protocol; 0.375 MCG/KG/MIN PRN Reason: TITRATE PER MD ORDER Last Admin: 07/16/17 05:01 Dose: 0.375 mcg/kg/min, 8.42 mls/hr Isosorbide Mononitrate (Imdur Er) 30 mg PO DAILY [facility] Last Admin: 07/16/17 09:16 Dose: 30 mg Levothyroxine Sodium (Synthroid) 112 mcg PO DAILY [facility] Last Admin: 07/16/17 09:17 Dose: 112 mcg Metoprolol Succinate (Toprol Xl) 50 mg PO DAILY [facility] Last Admin: 07/16/17 09:17 Dose: 50 mg Tramadol HCl (Ultram) 50 mg PO Q8H PRN PRN Reason: Pain, moderate (4-7) Last Admin: 07/16/17 11:38 Dose: 50 mg Warfarin Sodium (Coumadin) 3 mg PO 1800 [facility] PRN Reason: Protocol - Labs Labs: 07/16/17 06:30 07/16/17 06:30 PT 33.3 SECONDS (9.4-12.5) H 07/16/17 06:30 INR 2.83 (0.93-1.08) H 07/16/17 06:30 APTT 38.2 Seconds (25.1-36.5) H 07/16/17 06:30 Attending/Attestation - Attestation I have personally seen and examined this patient.: Yes I have fully participated in the care of the patient.: Yes I have reviewed all pertinent clinical information, including history, physical exam and plan: Yes Notes (Text): 07/16/17 14:26 86 year old female with past medical history of systolic CHF s/p ICD on chronic milrinone therapy, afib on coumadin, hyothyroidism and CKD who presented with lower extremity pain, weakness with difficulty ambulating and chronic dyspnea. She was found to have acute on chronic renal failure and hyperkalemia. CXR was negative. PBNP was elevated but improved from her baseline. She is on chronic milrinone therapy. She is on digoxin and imdur. She was seen by cardiology who resumed her lasix at iv 40 mg daily today. Her INR is 2.83 today so her coumadin is resumed for tonight. Will continue to hold her losartan for now for acute on chronic renal failure. Resume if creatinine continues to improve to baseline. Hyperkalemia has resolved. PT evaluation was requested for weakness. Will follow up with recommendations. Marleny Man MD Hospitalist.
--- NOTE | 2017-07-16 17:11 | CON ---
DATE: 07/16/2017 HISTORY OF PRESENT ILLNESS: This is an 87-year-old woman well known to me with congestive cardiomyopathy, on home milrinone therapy who complained of increasing shortness of breath, dyspnea on exertion, and lower extremity swelling and pain. She was brought to the emergency room and admitted to telemetry. She was given IV Lasix. This morning, she feels better, but still has discomfort in the lower extremities, especially the ankles, left greater than right. She has a history of gout as well. There has been no chest pain, syncope, dizziness, lightheadedness, fever, chills, cough, sputum production, hemoptysis, abdominal pain, nausea, vomiting, diarrhea, constipation, or melena. PAST MEDICAL HISTORY: Complex. She has severe cardiomyopathy, left ventricular ejection fraction in the 8%-10% range. She is on home milrinone therapy. She has had numerous admissions for congestive heart failure. In addition to severe LV dysfunction, her echocardiogram shows severe mitral regurgitation, tricuspid regurgitation, and pulmonary hypertension. She has chronic AFib, on warfarin. She has an ICD implant. She has a history of stroke, gout, hypothyroidism, back surgery, gallbladder surgery. She is a former smoker. MEDICATIONS: At the time of admission include IV milrinone infusion, colchicine, digoxin, isosorbide, levothyroxine, losartan, metoprolol, warfarin, Lasix, and tramadol. ALLERGIES: SHE NOTES AN ALLERGY TO PENICILLIN AND CODEINE. SOCIAL HISTORY: She lives at home. She has assistance of her daughters and home health aid. She is on home milrinone infusion. She no longer smokes. She denies alcohol use. FAMILY HISTORY: Notable for heart disease. REVIEW OF SYSTEMS: A 10-point review of systems otherwise unremarkable except as noted above. PHYSICAL EXAMINATION: GENERAL: She is a well-developed elderly woman lying in a recliner chair on telemetry, in no acute distress. VITAL SIGNS: Notable for ventricular pacing at 70 beats per minute. She is afebrile, blood pressure 127/60, respirations 20, O2 sat 97%-100% on room air. HEENT: Reveals no neck vein distention, thyromegaly, or carotid bruits. Mucous membranes moist. Conjunctivae pink. NECK: Supple. LUNGS: Lung kraus, scattered rhonchi, few rales at the bases. HEART: Reveals irregular rhythm. Normal first and second heart sounds. PMI is laterally displaced. ABDOMEN: Soft. Bowel sounds are present. No mass, organomegaly, tenderness, rebound, or guarding. No CVA tenderness. No palpable abdominal aortic aneurysm. EXTREMITIES: Reveals no cyanosis, clubbing, or edema. NEUROLOGIC: She is awake, alert, and oriented. PSYCHIATRIC: Normal as to mood and affect. SKIN: Warm and dry. No rash or cellulitis. IMAGING DATA: A portable chest x-ray reveals no active disease. An EKG reveals ventricular pacing with underlying atrial fibrillation. LABORATORY DATA: White count 11,100, hemoglobin 11, hematocrit 33.4, platelet count 196,000. PT 33.3, INR 2.83, PTT 38.2. Electrolytes unremarkable. BUN 52, creatinine 1.7, blood sugar 118. Bilirubin 1.3, repeat 2.1. Mild elevation of AST, ALT, and alkaline phosphatase. CK 28, troponin 0.05. BNP 3110. Urinalysis is noted. Dig level 1.8. IMPRESSION: Britt Barlow is an 87-year-old woman with known severe congestive cardiomyopathy, admitted with increasing dyspnea and increasing lower extremity pain, possibly due to gout. PLAN: At this time, she is on telemetry. We will continue milrinone. In addition, she is getting IV Lasix, isosorbide, Pepcid, Synthroid, metoprolol, and tramadol. She is getting morphine for severe pain, which is not well controlled. I will hold digoxin today and reduce her dose to every other day. I will hold warfarin today and monitor INRs on a daily basis while in hospital. She can be out of bed to a chair. We will check stool for occult blood. We will check uric acid level. She will need pain management, perhaps a rheumatology evaluation for gout. I will follow along with you. I will make additional recommendations based on her clinical course. Juan Jose Alcantara MD MTDLianne
[2017-07-16 23:22] LABS: PH,URINE 5.5 (4.7-8.0); URINE BILIRUBIN NEGATIVE (NEGATIVE); URINE BLOOD NEGATIVE (NEGATIVE); URINE GLUCOSE (UA) NEGATIVE (NEGATIVE); URINE LEUKOCYTE ESTERASE MODERATE Leu/uL (NEGATIVE); URINE PROTEIN NEGATIVE mg/dL (<30 mg/dL)
[2017-07-16 23:33] LABS: URINE APPEARANCE SL CLOUDY (CLEAR); URINE COLOR YELLOW (YELLOW)
[2017-07-16 23:39] LABS: URINE BACTERIA FEW (NEG); URINE RBC 0 - 2 /hpf (0-2)
[2017-07-17] MEDS: Milrinone 20mg/100ml D5W 100 ML IV PRN ×2 (05:33→17:58)
[2017-07-17 07:16] LABS: BASO # 0.02 K/mm3 (0.0-2.0); BASO % 0.2 % (0.0-3.0); EOS # 0.2 (0.0-0.7); EOS % 1.5 % (1.5-5.0); GRAN # 7.25 (1.4-6.5); GRAN % 62.9 % (50.0-68.0); HEMOGLOBIN 11.1 g/dL (12.0-16.0); LYMPH # 2.7 (1.2-3.4); LYMPH % 23.3 % (22.0-35.0); MEAN CORPUSCULAR HGB CONC 32.3 g/dl (31.0-37.0); MEAN PLATELET VOLUME 10.1 fl (7.0-11.0); MONO # 1.4 (0.1-0.6); MONO % 12.1 % (1.0-6.0); RBC 3.7 10^6/uL (3.5-6.1); RED CELL DISTRIBUTION WIDTH 15.6 % (11.5-14.5); WHITE BLOOD COUNT 11.5 10^3/ul (4.5-11.0)
[2017-07-17 07:30] LABS: INR 2.29 (0.93-1.08); PROTHROMBIN TIME 26.8 SECONDS (9.4-12.5)
[2017-07-17 07:52] LABS: ALB/GLOB RATIO 0.9 (1.1-1.8); ALBUMIN 3.6 g/dL (3.0-4.8); CALCIUM 9.2 mg/dL (8.4-10.5); URIC ACID 11.1 mg/dL (2.5-6.2)
--- NOTE | 2017-07-17 08:23 | CP.PCM.PN ---
Subjective - Date & Time of Evaluation Date of Evaluation: 07/17/17 Time of Evaluation: 07:00 - Subjective Subjective: Stable on 2R. Breathing better. No CP. + LE pains. V/S noted. V. Paced. PE: Lungs: few rhonchi Cor.: S1S2 Abd.: soft Ext.: no edema Neuro.; alert I/O= 160/300 recorded Labs: INR = 2.29, Cr.= 1.5, K+= 4.7, U.A.= 11.1 Objective - Vital Signs/Intake and Output Vital Signs (last 24 hours): Temp Pulse Resp BP Pulse Ox 98.6 F 70 20 109/49 L 98 07/17/17 06:00 07/17/17 06:00 07/17/17 06:00 07/17/17 06:00 07/17/17 06:00 Intake and Output: 07/17/17 07/17/17 06:59 18:59 Intake Total 201 160 Output Total 300 Balance 201 -140 - Medications Medications: Current Medications Colchicine (Colocrys) 0.6 mg PO BID [facility] Last Admin: 07/16/17 17:04 Dose: 0.6 mg Digoxin (Digoxin) 0.125 mg PO DAILY [facility] Last Admin: 07/16/17 09:17 Dose: 0.125 mg Famotidine (Pepcid) 20 mg PO DAILY [facility] Last Admin: 07/16/17 09:16 Dose: 20 mg Furosemide (Lasix) 40 mg PO BID [facility] Milrinone Lactate/Dextrose (Primacor 20mg/100ml D5w) 100 mls @ 8.42 mls/hr IV .[id number] PRN; Protocol; 0.375 MCG/KG/MIN PRN Reason: TITRATE PER MD ORDER Last Admin: 07/17/17 05:33 Dose: 0.375 mcg/kg/min, 8.42 mls/hr Isosorbide Mononitrate (Imdur Er) 30 mg PO DAILY [facility] Last Admin: 07/16/17 09:16 Dose: 30 mg Levothyroxine Sodium (Synthroid) 112 mcg PO DAILY [facility] Last Admin: 07/16/17 09:17 Dose: 112 mcg Metoprolol Succinate (Toprol Xl) 50 mg PO DAILY [facility] Last Admin: 07/16/17 09:17 Dose: 50 mg Tramadol HCl (Ultram) 50 mg PO Q8H PRN PRN Reason: Pain, moderate (4-7) Last Admin: 07/17/17 06:29 Dose: 50 mg Warfarin Sodium (Coumadin) 3 mg PO 1800 YAA PRN Reason: Protocol Last Admin: 07/16/17 17:04 Dose: 3 mg - Labs Labs: 07/17/17 06:00 07/17/17 06:00 PT 26.8 SECONDS (9.4-12.5) H 07/17/17 06:00 INR 2.29 (0.93-1.08) H 07/17/17 06:00 APTT 38.2 Seconds (25.1-36.5) H 07/16/17 06:30 Assessment and Plan - Assessment and Plan (Free Text) Assessment: IVY LE pain, ankles, knees, R/O acute Gout CHF, Class IV, on home milrinone infusion CCM Severe MR, TR and PH Chronic AF, on warfarin ICD CVA Hypothyroidism GB Surgery Back Surgery Former Smoker Plan: Rheum/Ortho/Pain Management Evals Continue Milrinone, cardiac meds. IV > PO Lasix Hold dig and warfarin today Monitor daily INRs Monitor labs, I/O, sats., etc OOB as mireille
[2017-07-17] MEDS: Levothyroxine 112 MCG TAB PO SCH (09:29)
[2017-07-17] MEDS: Metoprolol Succinate 50 mg XL Tab PO SCH (09:29)
--- NOTE | 2017-07-17 13:32 | CP.PCM.PN ---
<Delicia Burciaga - Last Filed: 07/17/17 13:23> Subjective - Date & Time of Evaluation Date of Evaluation: 07/17/17 Time of Evaluation: 13:23 - Subjective Subjective: Patient seen and examined at bedside. No acute events overnight. Reports continued left lower extremity pain, mildly improved. Denies fever, chills, nausea, vomiting, abdominal pain, urinary symptoms, leg swelling. Objective - Vital Signs/Intake and Output Vital Signs (last 24 hours): Temp Pulse Resp BP Pulse Ox 98.6 F 68 20 129/52 L 98 07/17/17 06:00 07/17/17 10:00 07/17/17 06:00 07/17/17 09:30 07/17/17 06:00 Intake and Output: 07/17/17 07/17/17 06:59 18:59 Intake Total 201 160 Output Total 300 Balance 201 -140 - Medications Medications: Current Medications Colchicine (Colocrys) 0.6 mg PO BID [facility] Last Admin: 07/17/17 09:35 Dose: 0.6 mg Digoxin (Digoxin) 0.125 mg PO DAILY [facility] Last Admin: 07/16/17 09:17 Dose: 0.125 mg Famotidine (Pepcid) 20 mg PO DAILY [facility] Last Admin: 07/17/17 09:30 Dose: 20 mg Furosemide (Lasix) 40 mg PO BID [facility] Last Admin: 07/17/17 09:30 Dose: 40 mg Milrinone Lactate/Dextrose (Primacor 20mg/100ml D5w) 100 mls @ 8.42 mls/hr IV .[id number] PRN; Protocol; 0.375 MCG/KG/MIN PRN Reason: TITRATE PER MD ORDER Last Admin: 07/17/17 05:33 Dose: 0.375 mcg/kg/min, 8.42 mls/hr Isosorbide Mononitrate (Imdur Er) 30 mg PO DAILY [facility] Last Admin: 07/17/17 09:30 Dose: 30 mg Levothyroxine Sodium (Synthroid) 112 mcg PO DAILY [facility] Last Admin: 07/17/17 09:29 Dose: 112 mcg Metoprolol Succinate (Toprol Xl) 50 mg PO DAILY [facility] Last Admin: 07/17/17 09:29 Dose: 50 mg Tramadol HCl (Ultram) 50 mg PO Q8H PRN PRN Reason: Pain, moderate (4-7) Last Admin: 07/17/17 06:29 Dose: 50 mg Warfarin Sodium (Coumadin) 3 mg PO 1800 YAA PRN Reason: Protocol Last Admin: 07/16/17 17:04 Dose: 3 mg - Labs Labs: 07/17/17 06:00 07/17/17 06:00 PT 26.8 SECONDS (9.4-12.5) H 07/17/17 06:00 INR 2.29 (0.93-1.08) H 07/17/17 06:00 APTT 38.2 Seconds (25.1-36.5) H 07/16/17 06:30 - Additional Findings Additional findings: - Constitutional Appears: Non-toxic, No Acute Distress - Head Exam Head Exam: ATRAUMATIC, NORMOCEPHALIC - Eye Exam Eye Exam: EOMI, PERRL. absent: Conjunctival injection, Nystagmus, Scleral icterus Pupil Exam: NORMAL ACCOMODATION, PERRL. absent: Fixed, Irregular, Unequal - ENT Exam ENT Exam: Mucous Membranes Moist - Neck Exam Neck Exam: Full ROM - Respiratory Exam Respiratory Exam: absent: Chest Wall Tenderness, Rales, Rhonchi, Wheezes, Respiratory Distress, Stridor Additional comments: + mild bibasilar crackles - Cardiovascular Exam Cardiovascular Exam: Irregular Rhythm - Extremities Exam Extremities Exam: absent: Calf Tenderness, Pedal Edema Additional comments: + left foot, mildly swollen - Back Exam Back Exam: NORMAL INSPECTION - Neurological Exam Neurological Exam: Alert, Awake, Oriented x3 - Psychiatric Exam Psychiatric exam: Normal Affect, Normal Mood - Skin Skin Exam: Dry, Normal Color, Warm Assessment and Plan - Assessment and Plan (Free Text) Assessment: 86 year old female with PMH of Systolic CHF with EF of 8% and ICD placement on chronic IV milrinone therapy, A-fib on Coumadin, hypothyroidism, and gout admitted for lower extremity pain and difficulty ambulating, found to have DAPHNE on CKD, which is improving: lower extremity pain and pedal edema: - Unlikely due to CHF exacerbation, at baseline vs likely gout flare - Lasix 40 PO BID - Last echo 03/2016 showed EF 8%. Severe systolic dysfunction - cont home IV milrinone - Continue home Digoxin, Imdur - hold losartan due to daphne - Strict I&Os - Daily weights - PT eval pending - Colchicine 0.6 BID - On previous admission, pt treated with IV methyprednisolone and medrol dose pack for acute gout flare - consider adding if no resolution of pain. DAPHNE on CKD: - baseline Cr 1.3 - Cr today is 1.5 - hold losartan - Avoid nephrotoxic agents - Feurea 19.1%, prerenal - Monitor daily Cr Hyperkalemia: - resolved - monitor supratheraputic INR: - resolved - INR therapeutic today - pt taking coumadin at home, 6 mg and 3 mg on alternating days - resumed warfarin 3 mg - daily INR Leukocytosis- mild - possibly reactive vs infection - UA + infection, pt denies symptoms. procal low - CXR neg for infiltrate - afebrile - will continue to monitor history of CHF: - at baseline per patient - continue milirone drip - consulted end frazer Dr. Alcantara. appreciate recs. History of Atrial fibrillation: - Rate controlled. home toprol - home Warfarin - INR daily History of Hypothyroidism: - Continue Synthroid Prophylaxis DVT: on warfarin GI: Protonix Case seen and discussed with Dr Man. Delicia Burciaga, PGY1 <Marleny Man - Last Filed: 07/17/17 13:43> Objective - Vital Signs/Intake and Output Vital Signs (last 24 hours): Temp Pulse Resp BP Pulse Ox 98.6 F 68 20 129/52 L 98 07/17/17 06:00 07/17/17 10:00 07/17/17 06:00 07/17/17 09:30 07/17/17 06:00 Intake and Output: 07/17/17 07/17/17 06:59 18:59 Intake Total 201 160 Output Total 300 Balance 201 -140 - Medications Medications: Current Medications Colchicine (Colocrys) 0.6 mg PO BID [facility] Last Admin: 07/17/17 09:35 Dose: 0.6 mg Digoxin (Digoxin) 0.125 mg PO DAILY [facility] Last Admin: 07/16/17 09:17 Dose: 0.125 mg Famotidine (Pepcid) 20 mg PO DAILY [facility] Last Admin: 07/17/17 09:30 Dose: 20 mg Furosemide (Lasix) 40 mg PO BID [facility] Last Admin: 07/17/17 09:30 Dose: 40 mg Milrinone Lactate/Dextrose (Primacor 20mg/100ml D5w) 100 mls @ 8.42 mls/hr IV .[id number] PRN; Protocol; 0.375 MCG/KG/MIN PRN Reason: TITRATE PER MD ORDER Last Admin: 07/17/17 05:33 Dose: 0.375 mcg/kg/min, 8.42 mls/hr Isosorbide Mononitrate (Imdur Er) 30 mg PO DAILY [facility] Last Admin: 07/17/17 09:30 Dose: 30 mg Levothyroxine Sodium (Synthroid) 112 mcg PO DAILY [facility] Last Admin: 07/17/17 09:29 Dose: 112 mcg Metoprolol Succinate (Toprol Xl) 50 mg PO DAILY [facility] Last Admin: 07/17/17 09:29 Dose: 50 mg Tramadol HCl (Ultram) 50 mg PO Q8H PRN PRN Reason: Pain, moderate (4-7) Last Admin: 07/17/17 06:29 Dose: 50 mg Warfarin Sodium (Coumadin) 3 mg PO 1800 [facility] PRN Reason: Protocol Last Admin: 07/16/17 17:04 Dose: 3 mg - Labs Labs: 07/17/17 06:00 07/17/17 06:00 PT 26.8 SECONDS (9.4-12.5) H 07/17/17 06:00 INR 2.29 (0.93-1.08) H 07/17/17 06:00 APTT 38.2 Seconds (25.1-36.5) H 07/16/17 06:30 Attending/Attestation - Attestation I have personally seen and examined this patient.: Yes I have fully participated in the care of the patient.: Yes I have reviewed all pertinent clinical information, including history, physical exam and plan: Yes Notes (Text): 07/17/17 13:38 86 year old female with past medical history of systolic CHF s/p ICD on chronic milrinone therapy, afib on coumadin, hyothyroidism and CKD who presented with lower extremity pain, weakness with difficulty ambulating and chronic dyspnea. She was found to have acute on chronic renal failure and hyperkalemia. CXR was negative. PBNP was elevated but improved from her baseline. She is on chronic milrinone therapy. She is on digoxin and imdur. She was seen by cardiology who resumed her lasix at iv 40 mg daily today. Today is has been switched to po. Continue with coumadin as per INR for afib. Kidney function continues to improve close to maseline. Consider resuming losartan tomorrow if stable. Hyperkalemia has resolved. Consider short course of steroids for possible gout flare up. UA shows moderate LE. However patient is asymptomatic and denies any urinary complaints. PT evaluation was appreciated who is recommending [facility]. Marleny Man MD Hospitalist.
[2017-07-18] MEDS: Milrinone 20mg/100ml D5W 100 ML IV PRN ×3 (06:36→21:50)
--- NOTE | 2017-07-18 07:57 | CP.PCM.PN ---
Subjective - Date & Time of Evaluation Date of Evaluation: 07/18/17 Time of Evaluation: 07:00 - Subjective Subjective: Stable on 2R. No CP or SOB. + LE pains. V/S noted. V. Paced. PE: Lungs: few rhonchi Cor.: S1S2 Abd.: soft Ext.: no edema Neuro.; alert I/O= n/a Labs 07/17 : INR = 2.29, Cr.= 1.5, K+= 4.7, U.A.= 11.1. Todays labs pending Objective - Vital Signs/Intake and Output Vital Signs (last 24 hours): Temp Pulse Resp BP Pulse Ox 97.1 F L 70 20 105/47 L 97 07/18/17 06:00 07/18/17 06:36 07/18/17 06:00 07/18/17 06:36 07/18/17 06:00 Intake and Output: 07/18/17 07/18/17 06:59 18:59 Intake Total 200 92 Output Total 300 Balance -100 92 - Medications Medications: Current Medications Colchicine (Colocrys) 0.6 mg PO BID [facility] Last Admin: 07/17/17 17:18 Dose: 0.6 mg Digoxin (Digoxin) 0.125 mg PO DAILY [facility] Last Admin: 07/16/17 09:17 Dose: 0.125 mg Famotidine (Pepcid) 20 mg PO DAILY [facility] Last Admin: 07/17/17 09:30 Dose: 20 mg Furosemide (Lasix) 40 mg PO BID [facility] Last Admin: 07/17/17 17:17 Dose: 40 mg Milrinone Lactate/Dextrose (Primacor 20mg/100ml D5w) 100 mls @ 8.42 mls/hr IV .[id number] PRN; Protocol; 0.375 MCG/KG/MIN PRN Reason: TITRATE PER MD ORDER Last Admin: 07/18/17 06:36 Dose: 0.375 mcg/kg/min, 8.42 mls/hr Isosorbide Mononitrate (Imdur Er) 30 mg PO DAILY [facility] Last Admin: 07/17/17 09:30 Dose: 30 mg Levothyroxine Sodium (Synthroid) 112 mcg PO DAILY [facility] Last Admin: 07/17/17 09:29 Dose: 112 mcg Metoprolol Succinate (Toprol Xl) 50 mg PO DAILY [facility] Last Admin: 07/17/17 09:29 Dose: 50 mg Prednisone (Prednisone Tab) 40 mg PO DAILY [facility] Last Admin: 07/17/17 14:59 Dose: 40 mg Tramadol HCl (Ultram) 50 mg PO Q8H PRN PRN Reason: Pain, moderate (4-7) Last Admin: 07/17/17 06:29 Dose: 50 mg Warfarin Sodium (Coumadin) 3 mg PO 1800 YAA PRN Reason: Protocol Last Admin: 07/16/17 17:04 Dose: 3 mg - Labs Labs: 07/17/17 06:00 07/17/17 06:00 PT 26.8 SECONDS (9.4-12.5) H 07/17/17 06:00 INR 2.29 (0.93-1.08) H 07/17/17 06:00 APTT 38.2 Seconds (25.1-36.5) H 07/16/17 06:30 Assessment and Plan - Assessment and Plan (Free Text) Assessment: IVY LE pain, ankles, knees, R/O acute Gout CHF, Class IV, on home milrinone infusion CCM Severe MR, TR and PH Chronic AF, on warfarin ICD CVA Hypothyroidism GB Surgery Back Surgery Former Smoker Plan: Rheum/Ortho/Pain Management Evals Continue Milrinone, cardiac meds. IV > PO Lasix Resume digoxin QOD. Warfain by INR-pending. Monitor daily INRs Monitor labs, I/O, sats., etc OOB as mireille
[2017-07-18] MEDS ORDERED: Digoxin 125 mcg (0.125 mg) Tab PO SCH (08:00)
[2017-07-18 08:17] LABS: BASO # 0.01 K/mm3 (0.0-2.0); BASO % 0.1 % (0.0-3.0); GRAN # 8.77 (1.4-6.5); HEMOGLOBIN 10.5 g/dL (12.0-16.0); LYMPH # 1.8 (1.2-3.4); LYMPH % 15.2 % (22.0-35.0); MEAN CELL VOLUME 91.6 fl (80.0-105.0); MEAN CORPUSCULAR HEMOGLOBIN 30.3 pg (25.0-35.0); MEAN PLATELET VOLUME 9.8 fl (7.0-11.0); MONO % 8.7 % (1.0-6.0); RBC 3.47 10^6/uL (3.5-6.1); RED CELL DISTRIBUTION WIDTH 15.5 % (11.5-14.5); WHITE BLOOD COUNT 11.5 10^3/ul (4.5-11.0)
[2017-07-18 08:31] LABS: ALB/GLOB RATIO 0.9 (1.1-1.8); ALBUMIN 3.4 g/dL (3.0-4.8); CALCIUM 9.1 mg/dL (8.4-10.5); INR 1.75 (0.93-1.08); PROTHROMBIN TIME 20.4 SECONDS (9.4-12.5)
--- NOTE | 2017-07-18 10:45 | RAD ---
PROCEDURE: Bilateral Ankle Radiographs. HISTORY: pain cannot bear wt COMPARISON: None FINDINGS: BONES: Right Ankle: Normal. No fracture. Left Ankle: Normal. No fracture. JOINTS: Right Ankle: Normal. No osteoarthritis. Ankle mortise maintained. Talar dome intact. Left Ankle: Normal. No osteoarthritis. Ankle mortise maintained. Talar dome intact. SOFT TISSUES: Right Ankle: Normal. Left Ankle: Normal. OTHER FINDINGS: Small calcaneal spurs are seen bilaterally IMPRESSION: Small calcaneal spurs bilaterally
--- NOTE | 2017-07-18 10:47 | RAD ---
PROCEDURE: Bilateral Knee Radiographs. HISTORY: pain cannot bear wt COMPARISON: None. FINDINGS: BONES: Right Knee: Normal. No fracture. Left Knee: Normal. No fracture. JOINTS: Right Knee: Meniscal calcifications are seen Left knee: Meniscal calcifications SOFT TISSUES: Right Knee: Normal. Left Knee: Normal. JOINT EFFUSION: Right Knee: None. Left Knee: Small left effusion OTHER FINDINGS: None. IMPRESSION: Meniscal calcifications consistent with chondrocalcinosis
--- NOTE | 2017-07-18 10:50 | RAD ---
PROCEDURE: Bilateral Feet Radiographs. HISTORY: pain cannot bear wt COMPARISON: 04/19/2017 FINDINGS: BONES: Right Foot: Normal. No fracture. Left Foot: Normal. No fracture. JOINTS: Right Foot: Degenerative changes in the 1st MTP joints bilaterally Left Foot: Degenerative changes the 1st MTP joint SOFT TISSUES: Right Foot: Normal. Left Foot: Normal. OTHER FINDINGS: Bilateral calcaneal spurs IMPRESSION: Degenerative changes in the 1st MTP joints bilaterally
[2017-07-18] MEDS: Levothyroxine 112 MCG TAB PO SCH (12:38)
[2017-07-18] MEDS: Metoprolol Succinate 50 mg XL Tab PO SCH (12:38)
--- NOTE | 2017-07-18 15:03 | CP.PCM.PN ---
<Delicia Burciaga - Last Filed: 07/18/17 15:23> Subjective - Date & Time of Evaluation Date of Evaluation: 07/18/17 Time of Evaluation: 11:00 - Subjective Subjective: Delicia Burciaga, PGY1, Progress Note for Dr Guerrero: Patient seen and examined at bedside. Pt had 7 beats of asymptomatic V tach overnight. Reports persistent left knee and ankle pain. Denies fever, chills, cough, nausea, vomiting, abdominal pain, urinary symptoms. Objective - Vital Signs/Intake and Output Vital Signs (last 24 hours): Temp Pulse Resp BP Pulse Ox 97.6 F 69 19 112/48 L 97 07/18/17 12:00 07/18/17 12:39 07/18/17 12:00 07/18/17 12:39 07/18/17 06:00 Intake and Output: 07/18/17 07/18/17 06:59 18:59 Intake Total 200 92 Output Total 300 Balance -100 92 - Medications Medications: Current Medications Colchicine (Colocrys) 0.6 mg PO BID [facility] Last Admin: 07/18/17 12:38 Dose: 0.6 mg Digoxin (Digoxin) 0.125 mg PO Q48H [facility] Famotidine (Pepcid) 20 mg PO DAILY [facility] Last Admin: 07/18/17 12:38 Dose: 20 mg Furosemide (Lasix) 40 mg PO BID [facility] Last Admin: 07/17/17 17:17 Dose: 40 mg Milrinone Lactate/Dextrose (Primacor 20mg/100ml D5w) 100 mls @ 6.287 mls/hr IV .[id number] PRN; Protocol; 0.28 MCG/KG/MIN PRN Reason: TITRATE PER MD ORDER Last Admin: 07/18/17 12:39 Dose: 0.28 mcg/kg/min, 6.287 mls/hr Isosorbide Mononitrate (Imdur Er) 30 mg PO DAILY [facility] Last Admin: 07/18/17 12:38 Dose: 30 mg Levothyroxine Sodium (Synthroid) 112 mcg PO DAILY [facility] Last Admin: 07/18/17 12:38 Dose: 112 mcg Metoprolol Succinate (Toprol Xl) 50 mg PO DAILY [facility] Last Admin: 07/18/17 12:38 Dose: 50 mg Prednisone (Prednisone Tab) 40 mg PO DAILY [facility] Last Admin: 07/18/17 12:38 Dose: 40 mg Tramadol HCl (Ultram) 50 mg PO Q8H PRN PRN Reason: Pain, moderate (4-7) Last Admin: 07/17/17 06:29 Dose: 50 mg Warfarin Sodium (Coumadin) 3 mg PO 1800 [facility] PRN Reason: Protocol Last Admin: 07/16/17 17:04 Dose: 3 mg - Labs Labs: 07/18/17 07:00 07/18/17 07:00 PT 20.4 SECONDS (9.4-12.5) H 07/18/17 07:00 INR 1.75 (0.93-1.08) H 07/18/17 07:00 APTT 38.2 Seconds (25.1-36.5) H 07/16/17 06:30 - Additional Findings Additional findings: - Constitutional Appears: Non-toxic, No Acute Distress - Head Exam Head Exam: ATRAUMATIC, NORMOCEPHALIC - Eye Exam Eye Exam: EOMI, PERRL. absent: Conjunctival injection, Nystagmus, Scleral icterus Pupil Exam: NORMAL ACCOMODATION, PERRL. absent: Fixed, Irregular, Unequal - ENT Exam ENT Exam: Mucous Membranes Moist - Neck Exam Neck Exam: Full ROM - Respiratory Exam Respiratory Exam: absent: Chest Wall Tenderness, Rales, Rhonchi, Wheezes, Respiratory Distress, Stridor Additional comments: + mild bibasilar crackles - Cardiovascular Exam Cardiovascular Exam: Irregular Rhythm - Extremities Exam Extremities Exam: absent: Calf Tenderness, Pedal Edema Additional comments: + left knee and foot, mildly swollen - Back Exam Back Exam: NORMAL INSPECTION - Neurological Exam Neurological Exam: Alert, Awake, Oriented x3 - Psychiatric Exam Psychiatric exam: Normal Affect, Normal Mood - Skin Skin Exam: Dry, Normal Color, Warm Assessment and Plan - Assessment and Plan (Free Text) Assessment: 86 year old female with PMH of Systolic CHF with EF of 8% and ICD placement on chronic IV milrinone therapy, A-fib on Coumadin, hypothyroidism, and gout admitted for lower extremity pain and difficulty ambulating, found to have DAPHNE on CKD Left ankle and foot pain/swellin/2 gout flare vs unlikely CHF exacerbation - hold lasix 2/2 daphne - Last echo 03/2016 showed EF 8%. Severe systolic dysfunction - cont home IV milrinone - Continue home Digoxin very other day as per Cardio, Imdur - hold losartan due to daphne - Strict I&Os - Daily weights - PT eval recommends CESARIO, pt refused. Pt states that she wants to go home. - Colchicine 0.6mg PO BID/ Started on PO prednisone yesterday. - Knee x ray shows meniscal calcifications c/w chondrocalcinosis - B/l Feet xray shows degenerative changes in 1st MTP joints b/l - B/l ankle xray shows b/l ankle spurs. - On previous admission, pt treated with IV methyprednisolone and medrol dose pack for acute gout flare - consider adding if no resolution of pain. - Dr Ambriz (Ortho) consulted for management, likely intraarticular injections. DAPHNE on CKD: - baseline Cr 1.3 - Cr today is 2.1 - hold losartan and lasix - Avoid nephrotoxic agents like NSAIDs - Feurea 19.1%, prerenal - Dr Marcum consulted. - Monitor daily Cr Hyperkalemia: - resolved - monitor supratheraputic INR: - resolved - INR subtherapeutic today - pt taking coumadin at home, 6 mg and 3 mg on alternating days - resumed warfarin 3 mg, per cardio - daily INR Leukocytosis- mild - possibly reactive vs infection - UA + infection, pt denies symptoms. procal low - CXR neg for infiltrate - afebrile - will continue to monitor history of CHF: - at baseline per patient - continue milirone drip - consulted concaver Dr. Alcantara. appreciate recs. History of Atrial fibrillation: - Rate controlled. home toprol - home Warfarin - INR daily History of Hypothyroidism: - Continue Synthroid Prophylaxis DVT: on warfarin GI: Protonix Case seen and discussed with Dr Guerrero. Delicia Burciaga, PGY1 <Marvin Guerrero - Last Filed: 07/18/17 15:38> Objective - Vital Signs/Intake and Output Vital Signs (last 24 hours): Temp Pulse Resp BP Pulse Ox 97.6 F 69 19 112/48 L 97 07/18/17 12:00 07/18/17 12:39 07/18/17 12:00 07/18/17 12:39 07/18/17 06:00 Intake and Output: 07/18/17 07/18/17 06:59 18:59 Intake Total 200 92 Output Total 300 Balance -100 92 - Medications Medications: Current Medications Colchicine (Colocrys) 0.6 mg PO BID [facility] Last Admin: 07/18/17 12:38 Dose: 0.6 mg Digoxin (Digoxin) 0.125 mg PO Q48H [facility] Famotidine (Pepcid) 20 mg PO DAILY [facility] Last Admin: 07/18/17 12:38 Dose: 20 mg Furosemide (Lasix) 40 mg PO BID [facility] Last Admin: 07/17/17 17:17 Dose: 40 mg Milrinone Lactate/Dextrose (Primacor 20mg/100ml D5w) 100 mls @ 6.287 mls/hr IV .[id number] PRN; Protocol; 0.28 MCG/KG/MIN PRN Reason: TITRATE PER MD ORDER Last Admin: 07/18/17 12:39 Dose: 0.28 mcg/kg/min, 6.287 mls/hr Isosorbide Mononitrate (Imdur Er) 30 mg PO DAILY [facility] Last Admin: 07/18/17 12:38 Dose: 30 mg Levothyroxine Sodium (Synthroid) 112 mcg PO DAILY [facility] Last Admin: 07/18/17 12:38 Dose: 112 mcg Metoprolol Succinate (Toprol Xl) 50 mg PO DAILY [facility] Last Admin: 07/18/17 12:38 Dose: 50 mg Prednisone (Prednisone Tab) 40 mg PO DAILY [facility] Last Admin: 07/18/17 12:38 Dose: 40 mg Tramadol HCl (Ultram) 50 mg PO Q8H PRN PRN Reason: Pain, moderate (4-7) Last Admin: 07/17/17 06:29 Dose: 50 mg Warfarin Sodium (Coumadin) 3 mg PO 1800 [facility] PRN Reason: Protocol Last Admin: 07/16/17 17:04 Dose: 3 mg - Labs Labs: 07/18/17 07:00 07/18/17 07:00 PT 20.4 SECONDS (9.4-12.5) H 07/18/17 07:00 INR 1.75 (0.93-1.08) H 07/18/17 07:00 APTT 38.2 Seconds (25.1-36.5) H 07/16/17 06:30 Attending/Attestation - Attestation I have personally seen and examined this patient.: Yes I have fully participated in the care of the patient.: Yes I have reviewed all pertinent clinical information, including history, physical exam and plan: Yes Notes (Text): 07/18/17 15:32 attending note; Patient seen and examined with resident. Patient is a 86 year old female with past medical history of systolic CHF s/p ICD on chronic milrinone therapy, afib on coumadin, hyothyroidism and CKD who presented with lower extremity pain, weakness with difficulty ambulating and chronic dyspnea. She was found to have acute on chronic renal failure and hyperkalemia. hyperkalemia resolved; Acute on chronic kidney disease; creatinine increased from 1.3-2.1 due to aggressive diuresis. Lasix on hold. nephrology evaluation requested. history of A. fib; INR is 1.7. Continue Coumadin. severe cardiomyopathy and ICD placement. Continue home milrinone. Left ankle swelling. acute gout flareup. Started on steroid on colchicine.avoid NSAIDs due to chronic kidney disease. x-rays negative for fracture. X-ray of the knee show chondrocalcinosis. orthopedics evaluation requested. PT evaluation was appreciated who is recommending CESARIO. social services counselor evaluation requested for discharge planning. Upon discharge the patient will follow-up with PMD .
--- NOTE | 2017-07-18 15:52 | CP.PCM.CON ---
History of Present Illness - History of Present Illness History of Present Illness: Palliative consult requested by Dr Kelly Guerrero Reason: Advanced care planning 87 year old female with history of CHF, AICD, A Fib and hypothyroidism who presented with bilateral lower extremity thalia, difficulty ambulating and shortness of breath. She denied chest pain, palpitations, fever,chills, nausea, vomiting,diarrhea, constipation or dizziness. X rays of both ankles, feet and knees showing degenerative changes in bilateral 1st MTP joints, spurs, meniscal calcifications and chondrocacinosis, no acute fractures. Chest x ray negative. BNP 3110, WBC 11.8,K 5.5, BUN 56, Creat 1.8, Alk Phos 192. PMHx: systolic heart failure, AICD, A Fib, EF 8 %,on Milrinone drip, hypothyroidism, gout. PSH: Laminectomy, cholesytectomy, hernia repair Social History: Former smoker, no alcohol or drug use. Family History: Father> heart disease. Advance Care Planning: The patient has a POLST: DNR/DNI Review of Systems: per HPI, review otherwise negative. Past Patient History - Infectious Disease Hx of Infectious Diseases: None - Tetanus Immunizations Tetanus Immunization: Unknown - Past Medical History & Family History Past Medical History?: Yes - Past Social History Smoking Status: Former Smoker - CARDIAC Hx Cardiac Disorders: Yes Hx Congestive Heart Failure: Yes - PULMONARY Hx Chronic Obstructive Pulmonary Disease (COPD): Yes - NEUROLOGICAL HX Cerebrovascular Accident: Yes - HEENT Hx HEENT Problems: Yes Hx Cataracts: Yes - RENAL Hx Chronic Kidney Disease: No - ENDOCRINE/METABOLIC Hx Hypothyroidism: Yes - HEMATOLOGICAL/ONCOLOGICAL Hx Blood Disorders: No - INTEGUMENTARY Hx Dermatological Problems: Yes (b/l pedal edema) - MUSCULOSKELETAL/RHEUMATOLOGICAL Hx Musculoskeletal Disorders: Yes Hx Falls: Yes Hx Unsteady Gait: Yes (WALKER) - GASTROINTESTINAL Hx Gastrointestinal Disorders: Yes (CHOLECYSTECTOMY,HERNIORHAPPHY) - GENITOURINARY/GYNECOLOGICAL Hx Genitourinary Disorders: No - PSYCHIATRIC Hx Emotional Abuse: No Hx Physical Abuse: No Hx Substance Use: No - SURGICAL HISTORY Hx Cholecystectomy: Yes - ANESTHESIA Hx Anesthesia: Yes Hx Anesthesia Reactions: No Hx Malignant Hyperthermia: No Meds Allergies/Adverse Reactions: Allergies Allergy/AdvReac Type Severity Reaction Status Date / Time codeine Allergy SHORTNESS Verified 07/16/17 04:51 OF BREATH Penicillins Allergy RASH Verified 07/16/17 04:51 - Medications Medications: Current Medications Colchicine (Colocrys) 0.6 mg PO BID [facility] Last Admin: 07/18/17 12:38 Dose: 0.6 mg Digoxin (Digoxin) 0.125 mg PO Q48H [facility] Famotidine (Pepcid) 20 mg PO DAILY [facility] Last Admin: 07/18/17 12:38 Dose: 20 mg Furosemide (Lasix) 40 mg PO BID [facility] Last Admin: 07/17/17 17:17 Dose: 40 mg Milrinone Lactate/Dextrose (Primacor 20mg/100ml D5w) 100 mls @ 6.287 mls/hr IV .[id number] PRN; Protocol; 0.28 MCG/KG/MIN PRN Reason: TITRATE PER MD ORDER Last Admin: 07/18/17 12:39 Dose: 0.28 mcg/kg/min, 6.287 mls/hr Isosorbide Mononitrate (Imdur Er) 30 mg PO DAILY [facility] Last Admin: 07/18/17 12:38 Dose: 30 mg Levothyroxine Sodium (Synthroid) 112 mcg PO DAILY [facility] Last Admin: 07/18/17 12:38 Dose: 112 mcg Metoprolol Succinate (Toprol Xl) 50 mg PO DAILY [facility] Last Admin: 07/18/17 12:38 Dose: 50 mg Prednisone (Prednisone Tab) 40 mg PO DAILY [facility] Last Admin: 07/18/17 12:38 Dose: 40 mg Tramadol HCl (Ultram) 50 mg PO Q8H PRN PRN Reason: Pain, moderate (4-7) Last Admin: 07/17/17 06:29 Dose: 50 mg Warfarin Sodium (Coumadin) 3 mg PO 1800 [facility] PRN Reason: Protocol Last Admin: 07/16/17 17:04 Dose: 3 mg Physical Exam - Constitutional Appears: No Acute Distress, Chronically Ill - Head Exam Head Exam: NORMOCEPHALIC - Eye Exam Eye Exam: Normal appearance, PERRL - ENT Exam ENT Exam: Mucous Membranes Moist, Normal Oropharynx - Neck Exam Neck exam: Positive for: Normal Inspection - Respiratory Exam Respiratory Exam: Decreased Breath Sounds, Rales - Cardiovascular Exam Cardiovascular Exam: REGULAR RHYTHM, +S1, +S2 - GI/Abdominal Exam GI & Abdominal Exam: Normal Bowel Sounds, Soft Additional comments: no tenderness - Extremities Exam Extremities exam: Positive for: pedal edema, pedal pulses present - Neurological Exam Neurological exam: Alert, Oriented x3 - Skin Skin Exam: Dry, Warm - Additional Findings Additional findings: Pallaitve performance scale raitng 40% Results - Vital Signs Recent Vital Signs: Last Vital Signs Temp 97.6 F 07/18/17 12:00 Pulse 69 07/18/17 12:39 Resp 19 07/18/17 12:00 BP 112/48 L 07/18/17 12:39 Pulse Ox 97 07/18/17 06:00 - Labs Result Diagrams: 07/18/17 07:00 07/18/17 07:00 Labs: Laboratory Results - last 24 hr 07/18/17 07/18/17 07/18/17 07:00 07:00 07:00 WBC 11.5 H RBC 3.47 L Hgb 10.5 L Hct 31.8 L MCV 91.6 MCH 30.3 MCHC 33.0 RDW 15.5 H Plt Count 252 MPV 9.8 Gran % 76.0 H Lymph % (Auto) 15.2 L [place] % (Auto) 8.7 H Eos % (Auto) 0.0 L Baso % (Auto) 0.1 Gran # 8.77 H Lymph # (Auto) 1.8 [place] # (Auto) 1.0 H Eos # (Auto) 0.0 Baso # (Auto) 0.01 PT 20.4 H INR 1.75 H Sodium 138 Potassium 4.2 Chloride 95 L Carbon Dioxide 32 Anion Gap 15 BUN 61 H Creatinine 2.1 H Est GFR ( Amer) 27 Est GFR (Non-Af Amer) 22 Random Glucose 130 H Calcium 9.1 Total Bilirubin 0.8 AST 47 H ALT 42 Alkaline Phosphatase 214 H Total Protein 7.2 Albumin 3.4 Globulin 3.8 Albumin/Globulin Ratio 0.9 L Assessment & Plan - Assessment and Plan (Free Text) Assessment: 87 year old female with history of multiple comorbidities(see PMH) who is admitted with DAPHNE on CKD,hyperkalemia, difficulty ambulating . The patient is known to me from previous admission. I was asked to speak with her today about goals of care. The patient and I completed a POLST: DNR/DNI in 02/20.The patient states that she remains DNR/DNI. She is still willing to pursue supportive medical treatments. She is still able to perform most ADL's with minimal assist.She is not sure wheter she will return home or go to [facility] upon discharge Time spent in goals of care and advance care planning discussion, 30 minutes Plan: Advance care planning. DNR/DNI, A copy of POLST is placed in chart Hyperkalemia: resolved DAPHNE on CKD :[place] on hold, Monitor creatinine daily. Difficultly ambulating: PT/OT, rehab
[2017-07-18] MEDS ORDERED: TRIAMCINOLONE ACETON IM ONE (17:59)
[2017-07-18] MEDS ORDERED: Bupivacaine 0.5% Inj(30mL) IJ ONE (18:01)
[2017-07-18 18:40] LABS: FLUID TYPE SYNOVIAL FLUID
[2017-07-18 19:16] LABS: SF GROSS APPEARANCE CLOUDY (CLEAR)
--- NOTE | 2017-07-18 20:52 | CON ---
DATE: 07/18/2017 INPATIENT CONSULTATION REASON FOR CONSULT: Left knee pain and effusion. HISTORY OF PRESENT ILLNESS: This is an 87-year-old female, who presented with complaints of left knee pain and swelling. The patient was admitted for hyperkalemia and renal failure. The patient denies any history of trauma. PAST MEDICAL HISTORY: The patient does have a past medical history consistent of gout and states that she has had previous knee effusions in the past. She says that she can bend her knee with some pain. She denies any histories of fevers or chills at home. PHYSICAL EXAMINATION: GENERAL: This is an elderly-looking female, in no apparent distress. She is awake, alert and oriented x3. Her affect is pleasant and appropriate. She is sitting up in a chair. EXTREMITIES: On examination of the left knee, there is an obvious effusion. Her skin is intact. She has some tenderness to palpation along the suprapatellar region. She has active range of motion from about 0 to about 50 degrees flexion before having significant pain. She is grossly stable with varus valgus stress. Her thigh and calf are soft and nontender. Grossly, she is neurovascularly intact distally. LABORATORY DATA: X-rays of the left knee shows no acute fracture or dislocations with tricompartmental degenerative changes with chondrocalcinosis. Uric acid was 11.1, again consistent with gout. The left knee was prepped sterilely and under sterile conditions approximately 20 mL of serous fluid was removed. This specimen is being sent for Gram stain, cell count, crystals and cultures. In the similar fashion, under sterile conditions, the left knee was injected with a total of 40 mg of Kenalog plus 2 mL of Marcaine. She tolerated the procedure well. IMPRESSION: Left knee gouty exacerbation. PLAN: At this point, we are going to follow up with the labs. For now, we will let her weight bear as tolerated and we will continue to follow during this admission. Zander Hope MD
--- NOTE | 2017-07-19 04:17 | CON ---
DATE: NEPHROLOGY CONSULTATION LOCATION: [facility]. HISTORY OF PRESENT ILLNESS: An 87-year-old female with past medical history of CHF with severe systolic dysfunction, status post AICD placement, on home milrinone; atrial fibrillation, hypothyroidism and gout. Initially presented with worsening leg pain as well as dyspnea on exertion; nephrology being consulted for the acute renal failure. Patient's history had been having lower extremity pain, L>>R, that began last week; reports L knee and ankle swelling with ensuing difficulty on ambulation; however, she says dyspnea on exertion was at baseline (gets short of breath on ambulation to bathroom); denies chest pain or palpitations and says weights were stable lately; she denies any change in urination, getting up about 5 times per night; appetite had been well and does admit to dietary sodium indiscretion at times; PAST MEDICAL HISTORY: As above. SOCIAL HISTORY: Previous smoker. FAMILY HISTORY: Father with heart disease. REVIEW OF SYSTEMS: CONSTITUTIONAL: no change in appetite, weight. HEENT: no difficulty swallowing. RESPIRATORY: no cough. CARDIOVASCULAR: per hpi. GASTROINTESTINAL: no nausea/vomiting or diarrhea. GENITOURINARY: per hpi, no dysuria. MUSCULOSKELETAL: per hpi, taking tramadol for pain, has been on colchicine for gout. SKIN: some pruritis of shoulder. PSYCHIATRIC: no depression/anxiety, sleeps well. NEUROLOGIC: no numbness of feet. PHYSICAL EXAMINATION: VITAL SIGNS: Blood pressure 107/51, heart rate 70, respirations 19, temperature 98.6. GENERAL: No distress. Conversing coherently in full sentences. HEENT: Moist mucous membranes. Nonicteric. No cervical lymphadenopathy. RESPIRATORY: Lungs clear to auscultation bilaterally. No rales or rhonchi. No wheezes. CARDIOVASCULAR: Heart sounds S1, S2 normal. No murmurs, no gallops, no rubs. GASTROINTESTINAL: Abdomen is soft, nontender, nondistended. GENITOURINARY: No bladder distention. EXTREMITIES: Bilateral lower leg edema. SKIN: Warm. No cyanosis. PSYCHIATRIC: Normal mood, normal affect. NEUROLOGIC: No tremor of outstretched hands. LABORATORY DATA: CBC: WBC 11.5, hemoglobin 10.5, hematocrit 31.8, platelets 252. Chemistry panel: Sodium 138, potassium 4.2, chloride 95, bicarb 32, BUN 61, creatinine 2.1, glucose 130, calcium 9.1, AST 47, ALT 42, albumin 3.4, uric acid 11.1. UA: Negative protein, negative blood. Chest x-ray from presentation, questionable increased pulmonary vascular congestion. ASSESSMENT AND PLAN: 1. Acute kidney injury on chronic kidney disease. Patient with cardiorenal etiology of renal insufficiency. Renal function had been improving with modest dose of diuretics and IV milrinone; worsening of renal function seen since yesterday may be due to loss of renal autoregulation after having received dose of nonsteroidal antiinflammatory drug yesterday (toradol); -Recommend to continue cardiac optimization with recommendations from Cardiology -Recommend to continue diuretics with IV Lasix with goal to maintain stable weight (~160 lbs). -Once renal function stabilized, should restart ARB; -Avoid nephrotoxic agents including NSAIDS, phosphate enema, etc. 2. Congestive heart failure with severe systolic dysfunction. The patient currently on milrinone drip, dose was decreased today. Should continue medical management with beta emilia, [id number] system blockade and diuretics; consider adding Aldactone at some point. 3. Metabolic alkalosis expected with patient on loop diuretics. Adding Aldactone will help counter alkalosis. 4. Hyperuricemia with history of gout. Hyperuricemia worsened with patient on loop diuretics; Arthrocentesis labs not consistent with inflammatory arthropathy at this point; the patient is on colchicine, no need for renal dose reduction; should consider starting urate lowering medications once symptoms improved and overlap with colchicine. 5. Hyperkalemia seen on presentation, but likely in the setting of worsened renal failure, currently resolved. Monitor for now. Thank you for this referral. We will be following up closely. Otoniel Marcum MD [facility]
[2017-07-19 06:40] LABS: GRAN # 9.69 (1.4-6.5); GRAN % 82.3 % (50.0-68.0); HEMOGLOBIN 10.5 g/dL (12.0-16.0); LYMPH # 1.6 (1.2-3.4); LYMPH % 13.3 % (22.0-35.0); MEAN CELL VOLUME 90.8 fl (80.0-105.0); MEAN CORPUSCULAR HEMOGLOBIN 30.2 pg (25.0-35.0); MEAN CORPUSCULAR HGB CONC 33.2 g/dl (31.0-37.0); MONO # 0.5 (0.1-0.6); MONO % 4.4 % (1.0-6.0); RBC 3.48 10^6/uL (3.5-6.1); RED CELL DISTRIBUTION WIDTH 15.3 % (11.5-14.5); WHITE BLOOD COUNT 11.8 10^3/ul (4.5-11.0)
[2017-07-19 06:55] LABS: INR 1.67 (0.93-1.08); PROTHROMBIN TIME 19.4 SECONDS (9.4-12.5)
[2017-07-19 07:11] LABS: ALB/GLOB RATIO 0.9 (1.1-1.8); ALBUMIN 3.4 g/dL (3.0-4.8); CALCIUM 9.1 mg/dL (8.4-10.5)
--- NOTE | 2017-07-19 09:13 | CP.PCM.PN ---
Subjective - Date & Time of Evaluation Date of Evaluation: 07/19/17 Time of Evaluation: 07:00 - Subjective Subjective: Stable on 3R. No CP or SOB. S/P Left Knee tap and steroid injection yesterday V/S noted. P = 69 PE: Lungs: few rhonchi Cor.: S1S2 Abd.: soft Ext.: no edema Neuro.; alert Labs noted:: INR = 1.67, Cr.= 1.7, K+= 4.4, H/H 01/04. BC= 67670 Objective - Vital Signs/Intake and Output Vital Signs (last 24 hours): Temp Pulse Resp BP Pulse Ox 97.4 F L 69 17 129/67 96 07/19/17 08:21 07/19/17 08:21 07/19/17 08:21 07/19/17 08:21 07/19/17 08:21 Intake and Output: 07/19/17 07/19/17 06:59 18:59 Intake Total 100 Balance 100 - Medications Medications: Current Medications Colchicine (Colocrys) 0.6 mg PO BID [facility] Last Admin: 07/18/17 17:48 Dose: 0.6 mg Digoxin (Digoxin) 0.125 mg PO Q48H [facility] Last Admin: 07/18/17 17:48 Dose: 0.125 mg Famotidine (Pepcid) 20 mg PO DAILY [facility] Last Admin: 07/18/17 12:38 Dose: 20 mg Furosemide (Lasix) 40 mg PO BID [facility] Last Admin: 07/17/17 17:17 Dose: 40 mg Milrinone Lactate/Dextrose (Primacor 20mg/100ml D5w) 100 mls @ 6.287 mls/hr IV .[id number] PRN; Protocol; 0.28 MCG/KG/MIN PRN Reason: TITRATE PER MD ORDER Last Admin: 07/18/17 21:50 Dose: 0.28 mcg/kg/min, 6.287 mls/hr Isosorbide Mononitrate (Imdur Er) 30 mg PO DAILY [facility] Last Admin: 07/18/17 12:38 Dose: 30 mg Levothyroxine Sodium (Synthroid) 112 mcg PO DAILY [facility] Last Admin: 07/18/17 12:38 Dose: 112 mcg Metoprolol Succinate (Toprol Xl) 50 mg PO DAILY [facility] Last Admin: 07/18/17 12:38 Dose: 50 mg Prednisone (Prednisone Tab) 40 mg PO DAILY [facility] Last Admin: 07/18/17 12:38 Dose: 40 mg Tramadol HCl (Ultram) 50 mg PO Q8H PRN PRN Reason: Pain, moderate (4-7) Last Admin: 07/17/17 06:29 Dose: 50 mg Warfarin Sodium (Coumadin) 6 mg PO 1800 [facility] PRN Reason: Protocol - Labs Labs: 07/19/17 06:20 07/19/17 06:20 PT 19.4 SECONDS (9.4-12.5) H 07/19/17 06:20 INR 1.67 (0.93-1.08) H 07/19/17 06:20 APTT 38.2 Seconds (25.1-36.5) H 07/16/17 06:30 Assessment and Plan - Assessment and Plan (Free Text) Assessment: IVY LE pain, ankles, knees, R/O acute Gout CHF, Class IV, on home milrinone infusion CCM Severe MR, TR and PH Chronic AF, on warfarin ICD CVA Hypothyroidism GB Surgery Back Surgery Former Smoker Plan: Continue Milrinone, cardiac meds. PO Lasix Add allopurinol, as per renal/ortho Resume digoxin QOD. Warfain 6 mg. today. Monitor daily INRs Monitor labs, I/O, sats., etc OOB as mireille As per ortho, renal, palliative care, medical team. F/U cutures joint fluid.
[2017-07-19] MEDS: Levothyroxine 112 MCG TAB PO SCH (10:48)
[2017-07-19] MEDS: Metoprolol Succinate 50 mg XL Tab PO SCH (10:48)
--- NOTE | 2017-07-19 11:15 | CP.PCM.PN ---
<Delicia Burciaga - Last Filed: 07/19/17 11:11> Subjective - Date & Time of Evaluation Date of Evaluation: 07/19/17 Time of Evaluation: 11:11 - Subjective Subjective: Delicia Burcaiga, PGY1, Progress Note for Dr Guerrero: Patient seen and examined at bedside. No acute events overnight. Pt reports improved pain, states that she would later try PT. Denies fever, chills, cough , nausea, vomiting, abdominal pain, urinary symptoms. Objective - Vital Signs/Intake and Output Vital Signs (last 24 hours): Temp Pulse Resp BP Pulse Ox 97.4 F L 70 17 130/70 96 07/19/17 08:21 07/19/17 10:48 07/19/17 08:21 07/19/17 10:48 07/19/17 08:21 Intake and Output: 07/19/17 07/19/17 06:59 18:59 Intake Total 100 Balance 100 - Medications Medications: Current Medications Colchicine (Colocrys) 0.6 mg PO BID [facility] Last Admin: 07/19/17 10:48 Dose: 0.6 mg Digoxin (Digoxin) 0.125 mg PO Q48H [facility] Last Admin: 07/18/17 17:48 Dose: 0.125 mg Famotidine (Pepcid) 20 mg PO DAILY [facility] Last Admin: 07/19/17 10:48 Dose: 20 mg Furosemide (Lasix) 40 mg PO BID [facility] Last Admin: 07/17/17 17:17 Dose: 40 mg Milrinone Lactate/Dextrose (Primacor 20mg/100ml D5w) 100 mls @ 6.287 mls/hr IV .[id number] PRN; Protocol; 0.28 MCG/KG/MIN PRN Reason: TITRATE PER MD ORDER Last Admin: 07/18/17 21:50 Dose: 0.28 mcg/kg/min, 6.287 mls/hr Isosorbide Mononitrate (Imdur Er) 30 mg PO DAILY [facility] Last Admin: 07/19/17 10:48 Dose: 30 mg Levothyroxine Sodium (Synthroid) 112 mcg PO DAILY [facility] Last Admin: 07/19/17 10:48 Dose: 112 mcg Metoprolol Succinate (Toprol Xl) 50 mg PO DAILY [facility] Last Admin: 07/19/17 10:48 Dose: 50 mg Prednisone (Prednisone Tab) 40 mg PO DAILY [facility] Last Admin: 07/19/17 10:49 Dose: 40 mg Tramadol HCl (Ultram) 50 mg PO Q8H PRN PRN Reason: Pain, moderate (4-7) Last Admin: 07/17/17 06:29 Dose: 50 mg Warfarin Sodium (Coumadin) 6 mg PO 1800 [facility] PRN Reason: Protocol - Labs Labs: 07/19/17 06:20 07/19/17 06:20 PT 19.4 SECONDS (9.4-12.5) H 07/19/17 06:20 INR 1.67 (0.93-1.08) H 07/19/17 06:20 APTT 38.2 Seconds (25.1-36.5) H 07/16/17 06:30 - Additional Findings Additional findings: - Constitutional Appears: Non-toxic, No Acute Distress - Head Exam Head Exam: ATRAUMATIC, NORMOCEPHALIC - Eye Exam Eye Exam: EOMI, PERRL. absent: Conjunctival injection, Nystagmus, Scleral icterus Pupil Exam: NORMAL ACCOMODATION, PERRL. absent: Fixed, Irregular, Unequal - ENT Exam ENT Exam: Mucous Membranes Moist - Neck Exam Neck Exam: Full ROM - Respiratory Exam Respiratory Exam: absent: Chest Wall Tenderness, Rales, Rhonchi, Wheezes, Respiratory Distress, Stridor Additional comments: + mild bibasilar crackles - Cardiovascular Exam Cardiovascular Exam: Irregular Rhythm - Extremities Exam Extremities Exam: absent: Calf Tenderness, Pedal Edema Additional comments: + left knee and foot, mildly decreased swelling noted - Back Exam Back Exam: NORMAL INSPECTION - Neurological Exam Neurological Exam: Alert, Awake, Oriented x3 - Psychiatric Exam Psychiatric exam: Normal Affect, Normal Mood - Skin Skin Exam: Dry, Normal Color, Warm Assessment and Plan - Assessment and Plan (Free Text) Assessment: 86 year old female with PMH of Systolic CHF with EF of 8% and ICD placement on chronic IV milrinone therapy, A-fib on Coumadin, hypothyroidism, and gout admitted for lower extremity pain and difficulty ambulating 2/2 likely acute gout flare s/p intra-articular steroid injection yesterday, also found to have DAPHNE on CKD: Left ankle and foot pain/swellin/2 gout flare vs unlikely CHF exacerbation - lasix - Last echo 03/2016 showed EF 8%. Severe systolic dysfunction - cont home IV milrinone - Continue home Digoxin very other day as per Cardio, Imdur - hold losartan due to daphne - Strict I&Os - Daily weights - PT eval recommends CESARIO, pt refused. Pt states that she wants to go home. WILL obtain re-eval today. - Colchicine 0.6mg PO BID/ Started on PO prednisone yesterday. - Knee x ray shows meniscal calcifications c/w chondrocalcinosis - B/l Feet xray shows degenerative changes in 1st MTP joints b/l - B/l ankle xray shows b/l ankle spurs. - On previous admission, pt treated with IV methyprednisolone and medrol dose pack for acute gout flare - consider adding if no resolution of pain. - Dr Ambriz (Ortho) consulted for management,s/p intraarticular injection. F/ u joint fluid - cytology includes MSU and CPPD crystals. DAPHNE on CKD: - baseline Cr 1.3 - Cr trending down. - lasix, aldactone - hold losartan - Avoid nephrotoxic agents like NSAIDs - Feurea 19.1%, prerenal - Dr Marcum consulted. appreciate recs - Monitor daily Cr Hyperkalemia: - resolved - monitor supratheraputic INR: - resolved - INR subtherapeutic today - pt taking coumadin at home, 6 mg and 3 mg on alternating days - warfarin 6 mg - daily INR Leukocytosis- mild - possibly reactive vs infection - UA + infection, pt denies symptoms. procal low - CXR neg for infiltrate - afebrile - will continue to monitor history of CHF: - at baseline per patient - continue milirone drip - consulted tool filer Dr. Alcantara. appreciate recs. History of Atrial fibrillation: - Rate controlled. home toprol - home Warfarin - INR daily History of Hypothyroidism: - Continue Synthroid Prophylaxis DVT: on warfarin GI: Protonix Dispo: PT re-eval; DAPHNE improvement. Case seen and discussed with Dr Guerrero. Delicia Burciaga, PGY1 <Marvin Guerrero - Last Filed: 07/19/17 14:45> Objective - Vital Signs/Intake and Output Vital Signs (last 24 hours): Temp Pulse Resp BP Pulse Ox 97.4 F L 70 17 124/66 96 07/19/17 08:21 07/19/17 10:48 07/19/17 08:21 07/19/17 13:02 07/19/17 08:21 Intake and Output: 07/19/17 07/19/17 06:59 18:59 Intake Total 100 Balance 100 - Medications Medications: Current Medications Allopurinol (Zyloprim) 100 mg PO DAILY [facility] Colchicine (Colocrys) 0.6 mg PO BID [facility] Last Admin: 07/19/17 10:48 Dose: 0.6 mg Digoxin (Digoxin) 0.125 mg PO Q48H [facility] Last Admin: 07/18/17 17:48 Dose: 0.125 mg Famotidine (Pepcid) 20 mg PO DAILY [facility] Last Admin: 07/19/17 10:48 Dose: 20 mg Furosemide (Lasix) 20 mg IVP BID [facility] Last Admin: 07/19/17 13:02 Dose: 20 mg Milrinone Lactate/Dextrose (Primacor 20mg/100ml D5w) 100 mls @ 6.287 mls/hr IV .[id number] PRN; Protocol; 0.28 MCG/KG/MIN PRN Reason: TITRATE PER MD ORDER Last Admin: 07/18/17 21:50 Dose: 0.28 mcg/kg/min, 6.287 mls/hr Isosorbide Mononitrate (Imdur Er) 30 mg PO DAILY [facility] Last Admin: 07/19/17 10:48 Dose: 30 mg Levothyroxine Sodium (Synthroid) 112 mcg PO DAILY [facility] Last Admin: 07/19/17 10:48 Dose: 112 mcg Metoprolol Succinate (Toprol Xl) 50 mg PO DAILY [facility] Last Admin: 07/19/17 10:48 Dose: 50 mg Prednisone (Prednisone Tab) 40 mg PO DAILY [facility] Last Admin: 07/19/17 10:49 Dose: 40 mg Tramadol HCl (Ultram) 50 mg PO Q8H PRN PRN Reason: Pain, moderate (4-7) Last Admin: 07/17/17 06:29 Dose: 50 mg Warfarin Sodium (Coumadin) 6 mg PO 1800 [facility] PRN Reason: Protocol - Labs Labs: 07/19/17 06:20 07/19/17 06:20 PT 19.4 SECONDS (9.4-12.5) H 07/19/17 06:20 INR 1.67 (0.93-1.08) H 07/19/17 06:20 APTT 38.2 Seconds (25.1-36.5) H 07/16/17 06:30 Attending/Attestation - Attestation I have personally seen and examined this patient.: Yes I have fully participated in the care of the patient.: Yes I have reviewed all pertinent clinical information, including history, physical exam and plan: Yes Notes (Text): 07/19/17 14:41 attending note; Patient seen and examined with resident. Patient is a 86 year old female with past medical history of systolic CHF s/p ICD on chronic milrinone therapy, afib on coumadin, hyothyroidism and CKD who presented with lower extremity pain, weakness with difficulty ambulating and chronic dyspnea. She was found to have acute on chronic renal failure. Acute on chronic kidney disease; creatinine is improving. Nephrology evaluation appreciated. on IV Lasix. history of A. fib; INR is 1.67. Continue Coumadin. severe cardiomyopathy and ICD placement. Continue home milrinone. Left ankle swelling. acute gout flareup. Started on steroid on colchicine. avoid NSAIDs due to chronic kidney disease. x-rays negative for fracture. X-ray of the knee show chondrocalcinosis. orthopedics evaluation appreciated. Status post steroidal injection to left knee. pain is improving. PT evaluation requested. Cultures negative so far. Synovial fluid is positive for urate crystals. Continue by mouth steroid. Continue colchicine and allopurinol. TCU evaluation requested. healthcare social worker evaluation requested for discharge planning. patient is DNI DNR. Palliative care evaluation appreciated. Upon discharge the patient will follow-up with PMD .
[2017-07-19] MEDS: Milrinone 20mg/100ml D5W 100 ML IV PRN (15:11)
[2017-07-19 16:47] VITALS: PULSE 70; RESP 20; TEMP 97.5; O2SAT 98
[2017-07-19 17:37] VITALS: BP 119/55
[2017-07-19] MEDS ORDERED: POLYETHYLENE GLYCOL 3350 17 GM/Dose PACKET PO SCH (18:00)
--- NOTE | 2017-07-19 19:47 | CP.PCM.PN ---
Subjective - Date & Time of Evaluation Date of Evaluation: 07/19/17 Time of Evaluation: 12:00 - Subjective Subjective: Patient reports feeling well; pain in L leg improved; tolerating diet; Objective - Vital Signs/Intake and Output Vital Signs (last 24 hours): Temp Pulse Resp BP Pulse Ox 97.5 F L 70 20 119/55 L 98 07/19/17 16:45 07/19/17 16:45 07/19/17 16:45 07/19/17 17:27 07/19/17 16:45 Intake and Output: 07/19/17 07/20/17 18:59 06:59 Intake Total 0 Balance 0 - Medications Medications: Current Medications Allopurinol (Zyloprim) 100 mg PO DAILY [facility] Last Admin: 07/19/17 15:11 Dose: 100 mg Colchicine (Colocrys) 0.6 mg PO BID [facility] Last Admin: 07/19/17 17:27 Dose: 0.6 mg Digoxin (Digoxin) 0.125 mg PO Q48H [facility] Last Admin: 07/18/17 17:48 Dose: 0.125 mg Famotidine (Pepcid) 20 mg PO DAILY [facility] Last Admin: 07/19/17 10:48 Dose: 20 mg Furosemide (Lasix) 20 mg IVP BID [facility] Last Admin: 07/19/17 17:27 Dose: 20 mg Milrinone Lactate/Dextrose (Primacor 20mg/100ml D5w) 100 mls @ 6.287 mls/hr IV .[id number] PRN; Protocol; 0.28 MCG/KG/MIN PRN Reason: TITRATE PER MD ORDER Last Admin: 07/19/17 15:11 Dose: 0.28 mcg/kg/min, 6.287 mls/hr Isosorbide Mononitrate (Imdur Er) 30 mg PO DAILY [facility] Last Admin: 07/19/17 10:48 Dose: 30 mg Levothyroxine Sodium (Synthroid) 112 mcg PO DAILY [facility] Last Admin: 07/19/17 10:48 Dose: 112 mcg Metoprolol Succinate (Toprol Xl) 50 mg PO DAILY [facility] Last Admin: 07/19/17 10:48 Dose: 50 mg Polyethylene Glycol (Miralax) 17 gm PO BID [facility] Last Admin: 07/19/17 17:28 Dose: 17 gm Prednisone (Prednisone Tab) 40 mg PO DAILY [facility] Last Admin: 07/19/17 10:49 Dose: 40 mg Tramadol HCl (Ultram) 50 mg PO Q8H PRN PRN Reason: Pain, moderate (4-7) Last Admin: 07/17/17 06:29 Dose: 50 mg Warfarin Sodium (Coumadin) 6 mg PO 1800 [facility] PRN Reason: Protocol Last Admin: 07/19/17 17:27 Dose: 6 mg - Labs Labs: 07/19/17 06:20 07/19/17 06:20 PT 19.4 SECONDS (9.4-12.5) H 07/19/17 06:20 INR 1.67 (0.93-1.08) H 07/19/17 06:20 APTT 38.2 Seconds (25.1-36.5) H 07/16/17 06:30 - Constitutional Appears: Non-toxic, No Acute Distress - Eye Exam Eye Exam: absent: Scleral icterus - ENT Exam ENT Exam: Mucous Membranes Moist - Respiratory Exam Respiratory Exam: Clear to Ausculation Bilateral. absent: Respiratory Distress - Cardiovascular Exam Cardiovascular Exam: RRR, +S1, +S2 - GI/Abdominal Exam GI & Abdominal Exam: Soft. absent: Distended, Tenderness - Extremities Exam Additional comments: left leg swelling improved; - Neurological Exam Neurological Exam: Alert, Awake - Psychiatric Exam Psychiatric exam: Normal Mood. absent: Agitated - Skin Skin Exam: Warm. absent: Cyanosis Assessment and Plan (1) DAPHNE (acute kidney injury) Assessment & Plan: DAPHNE on CKD; cardiorenal etiology of CKD, with acute insult due to NSAID; renal function improved today; continue to optimize cardiac status and avoid nephrotoxic meds; Status: Acute (2) CKD (chronic kidney disease) Assessment & Plan: CKD IIIA, based on labs from last month; non-proteinuric disease in the setting of severe systolic dysfunction; see above; Status: Chronic (3) Metabolic alkalosis Assessment & Plan: Due to diuretics; will start low dose aldactone now that lasix resumed; Status: Chronic (4) Congestive heart failure Assessment & Plan: Severe systolic CHF, chronic, not worsened lately; continue inotropic agent; should restart losartan at low dose and titrate upward as tolerated; Status: Chronic
--- NOTE | 2017-07-19 20:01 | CP.PCM.PN ---
Subjective - Date & Time of Evaluation Date of Evaluation: 07/19/17 Time of Evaluation: 17:30 - Subjective Subjective: Orthopedic follow up Dr. Hope Patient participated in PT today, able to walk 10 ft x 2 with limp, improving. Objective - Vital Signs/Intake and Output Vital Signs (last 24 hours): Temp Pulse Resp BP Pulse Ox 97.5 F L 70 20 119/55 L 98 07/19/17 16:45 07/19/17 16:45 07/19/17 16:45 07/19/17 17:27 07/19/17 16:45 Intake and Output: 07/19/17 07/20/17 18:59 06:59 Intake Total 0 Balance 0 - Medications Medications: Current Medications Allopurinol (Zyloprim) 100 mg PO DAILY [facility] Last Admin: 07/19/17 15:11 Dose: 100 mg Colchicine (Colocrys) 0.6 mg PO BID [facility] Last Admin: 07/19/17 17:27 Dose: 0.6 mg Digoxin (Digoxin) 0.125 mg PO Q48H [facility] Last Admin: 07/18/17 17:48 Dose: 0.125 mg Famotidine (Pepcid) 20 mg PO DAILY [facility] Last Admin: 07/19/17 10:48 Dose: 20 mg Furosemide (Lasix) 20 mg PO BID [facility] Milrinone Lactate/Dextrose (Primacor 20mg/100ml D5w) 100 mls @ 6.287 mls/hr IV .[id number] PRN; Protocol; 0.28 MCG/KG/MIN PRN Reason: TITRATE PER MD ORDER Last Admin: 07/19/17 15:11 Dose: 0.28 mcg/kg/min, 6.287 mls/hr Isosorbide Mononitrate (Imdur Er) 30 mg PO DAILY [facility] Last Admin: 07/19/17 10:48 Dose: 30 mg Levothyroxine Sodium (Synthroid) 112 mcg PO DAILY [facility] Last Admin: 07/19/17 10:48 Dose: 112 mcg Metoprolol Succinate (Toprol Xl) 50 mg PO DAILY [facility] Last Admin: 07/19/17 10:48 Dose: 50 mg Polyethylene Glycol (Miralax) 17 gm PO BID [facility] Last Admin: 07/19/17 17:28 Dose: 17 gm Prednisone (Prednisone Tab) 40 mg PO DAILY [facility] Last Admin: 07/19/17 10:49 Dose: 40 mg Tramadol HCl (Ultram) 50 mg PO Q8H PRN PRN Reason: Pain, moderate (4-7) Last Admin: 07/17/17 06:29 Dose: 50 mg Warfarin Sodium (Coumadin) 6 mg PO 1800 [facility] PRN Reason: Protocol Last Admin: 07/19/17 17:27 Dose: 6 mg - Labs Labs: 07/19/17 06:20 07/19/17 06:20 PT 19.4 SECONDS (9.4-12.5) H 07/19/17 06:20 INR 1.67 (0.93-1.08) H 07/19/17 06:20 APTT 38.2 Seconds (25.1-36.5) H 07/16/17 06:30 Assessment and Plan (1) Acute gout of left knee Assessment & Plan: cell count/micro/cytology reviewed with Dr. Hope improving labs reviewed, consistent with gout cx prelim neg +uric acid crystals per path cont medical mgmt of gout PT/OT encourage OOB VTE proph Status: Acute (2) Degenerative arthritis of right knee Status: Chronic (3) Primary osteoarthritis of left knee Status: Chronic (4) Acute gout of left ankle Status: Acute
== END 2017-07-19 20:44 | DRG 683 ==
LOC: ED 14:14 → ERH 16:27 → 2RSO 19:19 → 3RNO 07-19 04:22
PROVIDERS: ADMIT Hospitalist; ATTEND Internal Medicine
PROC: 0S9D3ZZ Drainage of Left Knee Joint, Percutaneous Approach (ICD-10-PCS; principal; 2017-07-18)
DX: N17.9 Acute kidney failure, unspecified (principal); I50.22 Chronic systolic (congestive) heart failure; I42.0 Dilated cardiomyopathy; E87.3 Alkalosis; E87.5 Hyperkalemia; I48.2 Chronic atrial fibrillation; Z86.73 Personal history of transient ischemic attack (TIA), and cerebral infarction without residual deficits; D72.829 Elevated white blood cell count, unspecified; E03.9 Hypothyroidism, unspecified; I08.1 Rheumatic disorders of both mitral and tricuspid valves; I27.20 Pulmonary hypertension, unspecified; J44.9 Chronic obstructive pulmonary disease, unspecified; M10.9 Gout, unspecified; M11.20 Other chondrocalcinosis, unspecified site; N18.9 Chronic kidney disease, unspecified; Z66 Do not resuscitate; Z79.01 Long term (current) use of anticoagulants; Z82.49 Family history of ischemic heart disease and other diseases of the circulatory system; Z87.891 Personal history of nicotine dependence; Z90.49 Acquired absence of other specified parts of digestive tract; Z95.810 Presence of automatic (implantable) cardiac defibrillator; H26.9 Unspecified cataract; Z88.5 Allergy status to narcotic agent; Z88.0 Allergy status to penicillin; R40.2412 Glasgow coma scale score 13-15, at arrival to emergency department; M25.462 Effusion, left knee; M11.262 Other chondrocalcinosis, left knee

== ENCOUNTER 2017-07-19 20:48 | Inpatient (IN) | payer OTHER, SELFPAY ==
[2017-07-20 02:01] VITALS: BMI 26.1
[2017-07-20] MEDS ORDERED: Morphine 2 mg/ml ISec IVP STA (03:49)
[2017-07-20] MEDS: Levothyroxine 112 MCG TAB PO SCH (05:37)
[2017-07-20] MEDS: Milrinone 20mg/100ml D5W 100 ML IV PRN ×2 (06:31→20:59)
[2017-07-20] MEDS: Metoprolol Succinate 50 mg XL Tab PO SCH (08:12)
[2017-07-20] MEDS: POLYETHYLENE GLYCOL 3350 17 GM/Dose PACKET PO SCH ×2 (09:56→17:17)
--- NOTE | 2017-07-20 09:59 | PN ---
DATE: 07/20/2017 SUBJECTIVE: The patient is seen lying in bed on the TCU. She states she had difficult night because of knee pain, not relieved with analgesics. She denies any dyspnea. MEDICATIONS: Her current medications include colchicine, warfarin, digoxin, Imdur, Lasix, Pepcid, prednisone 40 mg daily, IV milrinone, Synthroid, Toprol XL and Zyloprim. OBJECTIVE: GENERAL: She is a very elderly woman, who appears comfortable at the present time. VITAL SIGNS: Blood pressure is 130/60 with pulse of 70, respirations are 16. She is afebrile. HEENT: No JVD. CHEST: Few scattered rhonchi. HEART: PMI displaced laterally with soft tones noted and systolic murmur present at the apex. ABDOMEN: Soft, nontender, normoactive bowel sounds. EXTREMITIES: No edema. DIAGNOSTIC DATA: No blood work pending from this morning. IMPRESSION: 1. Acute gout, clinically improved. 2. Chronic systolic congestive heart failure, maintained on the home milrinone infusion. 3. Congestive cardiomyopathy. 4. History of implantable cardioverter-defibrillator implant. RECOMMENDATIONS: Analgesic therapy and treatment for gout should continue. Her IV milrinone will be continued as well. Once her prednisone is tapered down, Lasix dosing can be switched to oral administration. We will be happy to follow along as needed. Dino Thompson MD
--- NOTE | 2017-07-20 10:41 | CP.PCM.PN ---
Subjective - Date & Time of Evaluation Date of Evaluation: 07/20/17 Time of Evaluation: 10:39 - Subjective Subjective: Pt doing better. Says pain is significantly improved. VSS L knee: effusion signifcantly decreased less tender active ROM 0-105 degrees thigh and calf soft, NT NVI distally cont PT can f/u as outpatient Objective - Vital Signs/Intake and Output Vital Signs (last 24 hours): Temp Pulse Resp BP Pulse Ox 98 F 70 18 106/50 L 07/20/17 01:34 07/20/17 08:12 07/20/17 01:34 07/20/17 09:52 - Medications Medications: Current Medications Allopurinol (Zyloprim) 100 mg PO DAILY [facility] PRN Reason: Protocol Last Admin: 07/20/17 09:58 Dose: 100 mg Colchicine (Colocrys) 0.6 mg PO BID [facility] PRN Reason: Protocol Last Admin: 07/20/17 09:58 Dose: 0.6 mg Digoxin (Digoxin) 0.125 mg PO Q48H [facility] PRN Reason: Protocol Famotidine (Pepcid) 20 mg PO HS [facility] PRN Reason: Protocol Furosemide (Lasix) 20 mg IVP BID [facility] PRN Reason: Protocol Last Admin: 07/20/17 09:52 Dose: Not Given Milrinone Lactate/Dextrose (Primacor 20mg/100ml D5w) 100 mls @ 6.287 mls/hr IV .[id number] PRN; Protocol PRN Reason: TITRATE PER MD ORDER Last Admin: 07/20/17 06:31 Dose: 6.287 mls/hr Isosorbide Mononitrate (Imdur Er) 30 mg PO 0600 [facility] PRN Reason: Protocol Last Admin: 07/20/17 05:37 Dose: 30 mg Levothyroxine Sodium (Synthroid) 112 mcg PO 0600 [facility] PRN Reason: Protocol Last Admin: 07/20/17 05:37 Dose: 112 mcg Metoprolol Succinate (Toprol Xl) 50 mg PO 0800 [facility] PRN Reason: Protocol Last Admin: 07/20/17 08:12 Dose: 50 mg Polyethylene Glycol (Miralax) 17 gm PO BID [facility] PRN Reason: Protocol Last Admin: 07/20/17 09:56 Dose: Not Given Prednisone (Prednisone Tab) 40 mg PO 0800 [facility] PRN Reason: Protocol Last Admin: 07/20/17 08:11 Dose: 40 mg Warfarin Sodium (Coumadin) 6 mg PO 1800 [facility] PRN Reason: Protocol
--- NOTE | 2017-07-20 13:49 | CP.PCM.HP ---
<Sissy Sauer - Last Filed: 07/20/17 13:46> History of Present Illness - History of Present Illness History of Present Illness: IM H & P for Dr. Cesar Sauer, PGY-1 Pt S & E at bedside at 1030. 86 year old female with PMH systolic CHF s/p AICD (EF 8% on previous echocardiogram) on milrinone drip, Atrial fibrillation, Hypothyroidism, gout who presents complaining of worsening leg and foot pain as well as dyspnea on excretion. Patient states that the lower extremity pain began on Tuesday morning. She states that she began to have difficult walking. She states that the pain did not improve as the week progressed. She states that she spoke with her senior litigation paralegal Dr. Alcantara recently. Patient states that she is taking Lasix 40 mg PO BID. Patient states that at baseline with her dyspnea. She denies chest pain and palpitations, fever, chills, abd pain, n/v, diarrhea, constipation, dysurea. Patient was recently in the hospital a few month ago for similar symptoms. At that time patient was discharged to rehab. Patients states that once she was discharged from rehab she was feeling better, and pain in her legs were improved. Pt admitted, home meds restarted, except for nephrotoxic ones due to DAPHNE. INR monitored due to supratherapeutic measurements, coumadin adjusted. Started on PO steroids for gout flare. Pt seen/evaluated by ortho - intervention of intra- articular joint injection performed. Pt seen by pallative care with POLST: DNR/ DNI completed. Pt seen/evaluted by nephrology for DAPHNE on CKD, started on aldactone, ok to restart losartan and titrate as tolerated. Pt seen/evaluated by PT with recommendations for TCU after hospital discharge due to deconditioning. Pt transferred to TCU for re-conditioning. Pt currently complaining of left knee pain. No other complaints. PMH: Systolic Heart Failure with ICD and on milrinone drip, Atrial Fibrillation , Hypothyroidism, Gout PSH: Laminectomy, Cholecystectomy, Hernia Repair, ICD placement Allergies: codeine (dyspnea), penicillin (rash) Social: Former smoker, quit in 1990. Denies alcohol or illicit drug use. family history: heart disease father Present on Admission - Present on Admission Any Indicators Present on Admission: No History of DVT/PE: No History of Uncontrolled Diabetes: No Urinary Catheter: No Decubitus Ulcer Present: No Review of Systems - Review of Systems All systems: reviewed and no additional remarkable complaints except - Constitutional Constitutional: absent: Chills, Fever - EENT Ears: absent: Dizziness Nose/Mouth/Throat: absent: Sore Throat - Cardiovascular Cardiovascular: absent: Chest Pain - Respiratory Respiratory: absent: Cough - Gastrointestinal Gastrointestinal: absent: Abdominal Pain, Nausea, Vomiting - Genitourinary Genitourinary: absent: Change in Urinary Stream - Musculoskeletal Musculoskeletal: Joint Swelling (left knee). absent: Numbness, Tingling - Integumentary Integumentary: absent: Rash - Neurological Neurological: Weakness (generalized) - Psychiatric Psychiatric: absent: Change in Appetite Past Patient History - Infectious Disease Hx of Infectious Diseases: None - Tetanus Immunizations Tetanus Immunization: Unknown - Past Medical History & Family History Past Medical History?: Yes - Past Social History Smoking Status: Former Smoker - CARDIAC Hx Cardiac Disorders: Yes Hx Congestive Heart Failure: Yes - PULMONARY Hx Chronic Obstructive Pulmonary Disease (COPD): Yes - NEUROLOGICAL HX Cerebrovascular Accident: Yes - HEENT Hx HEENT Problems: Yes Hx Cataracts: Yes - RENAL Hx Chronic Kidney Disease: No - ENDOCRINE/METABOLIC Hx Hypothyroidism: Yes - HEMATOLOGICAL/ONCOLOGICAL Hx Blood Disorders: No - INTEGUMENTARY Hx Dermatological Problems: Yes (b/l pedal edema) - MUSCULOSKELETAL/RHEUMATOLOGICAL Hx Falls: Yes - GASTROINTESTINAL Hx Gastrointestinal Disorders: Yes (CHOLECYSTECTOMY,HERNIORHAPPHY) - GENITOURINARY/GYNECOLOGICAL Hx Reproductive Disorders: No - PSYCHIATRIC Hx Emotional Abuse: No Hx Physical Abuse: No Hx Substance Use: No - SURGICAL HISTORY Hx Cholecystectomy: Yes - ANESTHESIA Hx Anesthesia: Yes Hx Anesthesia Reactions: No Hx Malignant Hyperthermia: No Meds Allergies/Adverse Reactions: Allergies Allergy/AdvReac Type Severity Reaction Status Date / Time codeine Allergy SHORTNESS Verified 07/16/17 04:51 OF BREATH Penicillins Allergy RASH Verified 07/16/17 04:51 Physical Exam - Constitutional Appears: Non-toxic, No Acute Distress - Head Exam Head Exam: ATRAUMATIC, NORMAL INSPECTION, NORMOCEPHALIC - Eye Exam Eye Exam: EOMI, Normal appearance - ENT Exam ENT Exam: Mucous Membranes Moist, Normal Exam - Neck Exam Neck exam: Positive for: Full Rom, Normal Inspection - Respiratory Exam Respiratory Exam: Clear to Auscultation Bilateral, NORMAL BREATHING PATTERN - Cardiovascular Exam Cardiovascular Exam: REGULAR RHYTHM, +S1, +S2 - GI/Abdominal Exam GI & Abdominal Exam: Normal Bowel Sounds, Soft. absent: Tenderness - Extremities Exam Extremities exam: Positive for: joint swelling (slight-left knee), tenderness ( left knee). Negative for: normal inspection - Neurological Exam Neurological exam: Alert, CN II-XII Intact, Oriented x3 - Psychiatric Exam Psychiatric exam: Normal Affect, Normal Mood - Skin Skin Exam: Dry, Intact, Normal Color, Warm Results - Vital Signs Recent Vital Signs: Last Vital Signs Temp 98 F 07/20/17 01:34 Pulse 70 07/20/17 08:12 Resp 18 07/20/17 01:34 BP 106/50 L 07/20/17 09:52 Pulse Ox Assessment & Plan - Assessment and Plan (Free Text) Assessment: 86F w/PMH sig for systolic CHF s/p AICD (EF 8% on previous echocardiogram) on milrinone drip, Atrial fibrillation, Hypothyroidism, gout admitted to hospital with c/o worsening leg and foot pain as well as dyspnea on excretion, pt with work up for joint swelling s/p intra-articular joint injection with ortho- admitted to TRCU due to deconditioning Plan: L ankle/knee pain Increased Allopurinol med to BID Colchicine Prednisone Morphine Tramadol Miralax PT Ortho following DAPHNE on CKD Aldactone Avoid nephrotoxic meds FU AM labs Nephrology following Afib Coumadin 6mg today, 3mg tomorrow Imdur Tropol Digoxin FU INR tomorrow Monitor CHF Lasix Home med: Milrinone Cards following Hx hypothyroidism Synthroid GI/DVT ppx On warfarin Pepcid Dispo: Admit to TCU DNR/DNI HHD w/supplements I/O PT/OT DW attending Cristiane, PGY-1 - Date & Time Date: 07/20/17 Time: 13:47 Decision To Admit - Pt Status Changed To: Hospital Disposition Of: Inpatient Admission - Admit Certification Admit to Inpatient:: After my assessment, the patient will require hospitalization for at least two midnights. This is because of the severity of symptoms shown, intensity of services needed, and/or the medical risk in this patient being treated as an outpatient. - . Bed Request Type: TRCU Admitting Physician: Marvin Guerrero <Rangasamy,Ajantha - Last Filed: 07/20/17 15:02> Results - Vital Signs Recent Vital Signs: Last Vital Signs Temp 98 F 07/20/17 01:34 Pulse 70 07/20/17 08:12 Resp 18 07/20/17 01:34 BP 106/50 L 07/20/17 09:52 Pulse Ox Attending/Attestation - Attestation I have personally seen and examined this patient.: Yes I have fully participated in the care of the patient.: Yes I have reviewed all pertinent clinical information: Yes Notes (Text): 07/20/17 14:58 attending note; Patient seen and examined with resident in TCU. Patient is a 86 year old female with past medical history of systolic CHF s/p ICD on chronic milrinone therapy, afib on coumadin, hyothyroidism and CKD who presented with lower extremity pain, weakness with difficulty ambulating and chronic dyspnea. She was found to have acute on chronic renal failure. Acute on chronic kidney disease; creatinine is improving. Nephrology evaluation appreciated. on IV Lasix. changed to po lasix today. history of A. fib;Continue Coumadin. severe cardiomyopathy and ICD placement. Continue home milrinone. Left ankle swelling. acute gout flareup. Started on steroid on colchicine. avoid NSAIDs due to chronic kidney disease. x-rays negative for fracture. X-ray of the knee show chondrocalcinosis. orthopedics evaluation appreciated. Status post steroidal injection to left knee. pain is improving. left knee swelling is improved. Still complaining of pain in left knee and ankle. Cultures negative so far. Synovial fluid is positive for urate crystals. Continue po steroid. Continue colchicine and allopurinol. allopurinol dosage increased. patient is DNI DNR. continue physical therapy/occupational therapy. Upon discharge the patient will follow-up with PMD .
[2017-07-20] MEDS: Digoxin 125 mcg (0.125 mg) Tab PO SCH (13:59)
--- NOTE | 2017-07-20 19:31 | CON ---
DATE: NEPHROLOGY CONSULTATION HISTORY OF PRESENT ILLNESS: The patient is an 87-year-old female with past medical history of CHF with severe systolic dysfunction, status post AICD placement on home milrinone, atrial fibrillation, hypothyroidism and gout. Initially presented with worsening leg pain as well as dyspnea on exertion. Nephrology was consulted for acute renal failure; the patient's hospital course was complicated by severe left knee and ankle pain and swelling, arthrocentesis, fluid analysis was consistent with gout; the patient was kept on colchicine and given meds for pain control; the patient did receive some NSAIDs; after which renal function worsened; however, renal function subsequently improved the following day; the patient otherwise reports her breathing is currently at baseline having dyspnea on exertion while walking to bathroom, but is comfortable at rest; denies chest pains or palpitations; tolerating diet without nausea, vomiting or diarrhea; She is urinating frequently as is her norm without any dysuria; the patient after symptomatic improvement is now admitted in TCU; PAST MEDICAL HISTORY: As above. SOCIAL HISTORY: Previous smoker. FAMILY HISTORY: Father with heart disease. REVIEW OF SYSTEMS: CONSTITUTIONAL: Good appetite. No major changes in weight lately. HEENT: Denies difficulty swallowing. RESPIRATORY: No cough. CARDIOVASCULAR: Per HPI. GI: Per HPI. : Per HPI. MUSCULOSKELETAL: Was given morphine for pain of left knee; SKIN: Reports some pruritus of shoulder. PSYCHIATRIC: No depression or anxiety. VASCULAR: No numbness of feet. LABORATORY DATA: From yesterday, CBC: WBC 11.8, hemoglobin 10.5, hematocrit 31.6, platelets 269. Chemistry panel: Sodium 138, potassium 4.4, chloride 96, bicarb 32, BUN 73, creatinine 1.7, glucose 131, calcium 9.1, AST 59, ALT 45, albumin 3.4, uric acid 11.1. ASSESSMENT AND PLAN: 1. Acute kidney injury on chronic kidney disease; the patient with cardiorenal etiology of renal insufficiency; renal function had worsened after nonsteroidal antiinflammatory drug dose, but it is improving subsequently; restarted on diuretics yesterday and is continued on IV milrinone; recommend to continue cardiac optimization; recommend to continue diuretics with p.o. Lasix 40 mg b.i.d. with goal to maintain stable weight (around 160 pounds). Once renal function stabilizes, recommend restarting angiotensin receptor emilia; avoid nephrotoxic agents including nonsteroidal antiinflammatory drugs, phosphate and . 2. Congestive heart failure with severe systolic dysfunction. The patient currently on milrinone drip and is currently at baseline level of symptoms; should continue medical management with beta-emilia, RAAS blockade and diuretics (recommend to consider adding Aldactone at some point). 3. Metabolic alkalosis expected with patient on loop diuretics; we will add small dose of Aldactone 12.5 mg to help counter alkalosis. 4. Hyperuricemia with history of gout worsened with the patient being on loop diuretics. The patient started on urate lowering medications although there is a risk that symptoms can flare-up while acutely starting the medication; recommend to continue with colchicine; 5. Hyperkalemia with pain during this recent admission, but likely in the setting of worsened renal failure currently resolved; monitor for now. Thank you for this referral. We will be following up closely. Otoniel Marcum MD
[2017-07-20] MEDS: Morphine 2 mg/ml ISec IVP PRN (20:53)
[2017-07-21] MEDS: Levothyroxine 112 MCG TAB PO SCH (05:52)
[2017-07-21 07:14] LABS: HEMOGLOBIN 10.5 g/dL (12.0-16.0); MEAN CELL VOLUME 90.3 fl (80.0-105.0); MEAN CORPUSCULAR HEMOGLOBIN 29.9 pg (25.0-35.0); MEAN CORPUSCULAR HGB CONC 33.1 g/dl (31.0-37.0); MEAN PLATELET VOLUME 8.6 fl (7.0-11.0); RBC 3.51 10^6/uL (3.5-6.1); WHITE BLOOD COUNT 10.5 10^3/ul (4.5-11.0)
[2017-07-21 07:29] LABS: INR 1.88 (0.93-1.08); PARTIAL THROMBOPLASTIN TIME 27.7 Seconds (25.1-36.5); PROTHROMBIN TIME 21.9 SECONDS (9.4-12.5)
--- NOTE | 2017-07-21 07:44 | CP.PCM.PN ---
Subjective - Date & Time of Evaluation Date of Evaluation: 07/21/17 Time of Evaluation: 07:00 - Subjective Subjective: Stable in TCU now. No CP or SOB. Knee pain better. V/S noted. P= 70 PE: Lungs: clear Cor.: S1S2 Abd.: soft Ext.: no edema Neuro.: alert Labs noted. CBC OK. INR = 1.88 Joint fluid + for uric acid crystals Objective - Vital Signs/Intake and Output Vital Signs (last 24 hours): Temp Pulse Resp BP Pulse Ox 97.9 F 70 20 117/60 98 07/20/17 10:00 07/20/17 16:00 07/20/17 16:00 07/20/17 18:27 07/20/17 16:00 Intake and Output: 07/21/17 07/21/17 06:59 18:59 Intake Total 100 Balance 100 - Medications Medications: Current Medications Allopurinol (Zyloprim) 100 mg PO BID YAA PRN Reason: Protocol Last Admin: 07/20/17 17:30 Dose: 100 mg Colchicine (Colocrys) 0.6 mg PO BID YAA PRN Reason: Protocol Last Admin: 07/20/17 17:30 Dose: 0.6 mg Digoxin (Digoxin) 0.125 mg PO Q48H YAA PRN Reason: Protocol Last Admin: 07/20/17 13:59 Dose: 0.125 mg Famotidine (Pepcid) 20 mg PO HS YAA PRN Reason: Protocol Last Admin: 07/20/17 21:14 Dose: Not Given Furosemide (Lasix) 40 mg PO DAILY [facility] Milrinone Lactate/Dextrose (Primacor 20mg/100ml D5w) 100 mls @ 6.287 mls/hr IV .[id number] PRN; Protocol PRN Reason: TITRATE PER MD ORDER Last Admin: 07/20/17 20:59 Dose: 6.287 mls/hr Isosorbide Mononitrate (Imdur Er) 30 mg PO 0600 YAA PRN Reason: Protocol Last Admin: 07/21/17 05:52 Dose: 30 mg Levothyroxine Sodium (Synthroid) 112 mcg PO 0600 YAA PRN Reason: Protocol Last Admin: 07/21/17 05:52 Dose: 112 mcg Metoprolol Succinate (Toprol Xl) 50 mg PO 0800 YAA PRN Reason: Protocol Last Admin: 07/20/17 08:12 Dose: 50 mg Morphine Sulfate (Morphine) 1 mg IVP Q6H PRN PRN Reason: Pain, severe (8-10) Last Admin: 07/20/17 20:53 Dose: 1 mg Polyethylene Glycol (Miralax) 17 gm PO BID YAA PRN Reason: Protocol Last Admin: 07/20/17 17:17 Dose: Not Given Prednisone (Prednisone Tab) 40 mg PO 0800 YAA PRN Reason: Protocol Last Admin: 07/20/17 08:11 Dose: 40 mg Tramadol HCl (Ultram) 50 mg PO Q8H PRN PRN Reason: Pain, moderate (4-7) Last Admin: 07/21/17 06:09 Dose: 50 mg Warfarin Sodium (Coumadin) 6 mg PO 1800 YAA PRN Reason: Protocol Last Admin: 07/20/17 17:31 Dose: 6 mg - Labs Labs: 07/21/17 07:00 PT 21.9 SECONDS (9.4-12.5) H 07/21/17 07:00 INR 1.88 (0.93-1.08) H 07/21/17 07:00 APTT 27.7 Seconds (25.1-36.5) 07/21/17 07:00 Assessment and Plan - Assessment and Plan (Free Text) Assessment: IVY CHF-IV on home milrinone infusion CCM Severe MR,TR and PH on echo Chronic AF on warfarin ICD CVA Hypothyroidism GB and Back surgery Former Smoker Plan: Continue cardiac meds and milrinone infusion RX for acute gout Monitor labs, INRs PT/Rehab efforts as tolerated. Will follow.
[2017-07-21] MEDS: Metoprolol Succinate 50 mg XL Tab PO SCH (07:55)
[2017-07-21 07:58] LABS: CALCIUM 9.2 mg/dL (8.4-10.5)
[2017-07-21] MEDS: POLYETHYLENE GLYCOL 3350 17 GM/Dose PACKET PO SCH ×2 (10:25→17:20)
[2017-07-21 10:52] LABS: IRON 46 ug/dL (45-180)
[2017-07-21 11:01] LABS: % IRON SATURATION 17 % (20-55); TOTAL IRON BINDING CAPACITY 276 ug/dL (265-497)
[2017-07-21] MEDS: Morphine 2 mg/ml ISec IVP PRN (14:09)
[2017-07-21] MEDS: Milrinone 20mg/100ml D5W 100 ML IV PRN (16:31)
--- NOTE | 2017-07-21 21:14 | CP.PCM.PN ---
Subjective - Date & Time of Evaluation Date of Evaluation: 07/21/17 Time of Evaluation: 11:00 - Subjective Subjective: Patient denies any increased sob; tolerated PT well; tolerating diet; Objective - Vital Signs/Intake and Output Vital Signs (last 24 hours): Temp Pulse Resp BP Pulse Ox 97.4 F L 71 16 122/71 98 07/21/17 16:00 07/21/17 17:13 07/21/17 16:00 07/21/17 17:19 07/21/17 17:13 Intake and Output: 07/21/17 07/22/17 18:59 06:59 Intake Total 520 Balance 520 - Medications Medications: Current Medications Allopurinol (Zyloprim) 100 mg PO BID YAA PRN Reason: Protocol Last Admin: 07/21/17 17:20 Dose: 100 mg Colchicine (Colocrys) 0.6 mg PO BID YAA PRN Reason: Protocol Last Admin: 07/21/17 17:19 Dose: 0.6 mg Digoxin (Digoxin) 0.125 mg PO Q48H YAA PRN Reason: Protocol Last Admin: 07/20/17 13:59 Dose: 0.125 mg Famotidine (Pepcid) 20 mg PO HS YAA PRN Reason: Protocol Last Admin: 07/20/17 21:14 Dose: Not Given Furosemide (Lasix) 40 mg PO DAILY [facility] Last Admin: 07/21/17 10:19 Dose: 40 mg Milrinone Lactate/Dextrose (Primacor 20mg/100ml D5w) 100 mls @ 6.287 mls/hr IV .[id number] PRN; Protocol PRN Reason: TITRATE PER MD ORDER Last Admin: 07/21/17 16:31 Dose: 6.287 mls/hr Isosorbide Mononitrate (Imdur Er) 30 mg PO 0600 YAA PRN Reason: Protocol Last Admin: 07/21/17 05:52 Dose: 30 mg Levothyroxine Sodium (Synthroid) 112 mcg PO 0600 YAA PRN Reason: Protocol Last Admin: 07/21/17 05:52 Dose: 112 mcg Losartan Potassium (Cozaar) 25 mg PO DAILY [facility] Last Admin: 07/21/17 17:19 Dose: 25 mg Metoprolol Succinate (Toprol Xl) 50 mg PO 0800 YAA PRN Reason: Protocol Last Admin: 07/21/17 07:55 Dose: 50 mg Morphine Sulfate (Morphine) 1 mg IVP Q6H PRN PRN Reason: Pain, severe (8-10) Last Admin: 07/21/17 14:09 Dose: 1 mg Polyethylene Glycol (Miralax) 17 gm PO BID YAA PRN Reason: Protocol Last Admin: 07/21/17 17:20 Dose: Not Given Prednisone (Prednisone Tab) 40 mg PO 0800 YAA PRN Reason: Protocol Last Admin: 07/21/17 07:54 Dose: 40 mg Tramadol HCl (Ultram) 50 mg PO Q8H PRN PRN Reason: Pain, moderate (4-7) Last Admin: 07/21/17 06:09 Dose: 50 mg Warfarin Sodium (Coumadin) 6 mg PO 1800 YAA PRN Reason: Protocol Last Admin: 07/21/17 17:19 Dose: 6 mg - Labs Labs: 07/21/17 07:00 07/21/17 07:00 PT 21.9 SECONDS (9.4-12.5) H 07/21/17 07:00 INR 1.88 (0.93-1.08) H 07/21/17 07:00 APTT 27.7 Seconds (25.1-36.5) 07/21/17 07:00 - Constitutional Appears: Non-toxic, No Acute Distress - Eye Exam Eye Exam: Normal appearance. absent: Scleral icterus - ENT Exam ENT Exam: Mucous Membranes Moist - Respiratory Exam Respiratory Exam: Clear to Ausculation Bilateral. absent: Respiratory Distress - Cardiovascular Exam Cardiovascular Exam: RRR, +S1, +S2 - GI/Abdominal Exam GI & Abdominal Exam: Soft. absent: Distended, Tenderness - Extremities Exam Additional comments: mild leg edema; - Neurological Exam Neurological Exam: Alert, Awake - Psychiatric Exam Psychiatric exam: Normal Mood. absent: Agitated - Skin Skin Exam: Warm. absent: Cyanosis Assessment and Plan (1) DAPHNE (acute kidney injury) Assessment & Plan: Renal function improved; has cardiorenal etiology of renal insufficiency; goal is to optimize cardiac status and avoid nephrotoxic agents (especially NSAIDS as they will block renal autoregulation); Status: Acute (2) Congestive heart failure Assessment & Plan: With severe systolic dysfunction; currently appears euvolemic; standing weight of 151 lbs today, need to check daily and maintain around the same; -on lasix 40 mg daily; if any weight increase, will need bid dosing; -continue B-blockers and ARB (restarted at low dose, can titrate upward as tolerated); -recommend to repeat chem panel periodically; -add aldactone as tolerated, especially if metabolic alkalosis increases with lasix; Status: Chronic (3) Gout Assessment & Plan: Started on allopurinol for urate lowering, continue along with colchicine; should reduce colchicine dosing to once daily after a few days; Status: Chronic
[2017-07-22] MEDS: Levothyroxine 112 MCG TAB PO SCH (05:51)
[2017-07-22 07:22] LABS: INR 2.22 (0.93-1.08); PROTHROMBIN TIME 25.9 SECONDS (9.4-12.5)
[2017-07-22 07:24] LABS: CALCIUM 9.2 mg/dL (8.4-10.5)
[2017-07-22] MEDS: Milrinone 20mg/100ml D5W 100 ML IV PRN ×2 (07:49→23:40)
[2017-07-22] MEDS: Metoprolol Succinate 50 mg XL Tab PO SCH (08:00)
--- NOTE | 2017-07-22 08:11 | CP.PCM.PN ---
Subjective - Date & Time of Evaluation Date of Evaluation: 07/22/17 Time of Evaluation: 07:00 - Subjective Subjective: Stable in TCU now. No CP or SOB. Knee pain better. She feels better. Was OOB with brief amb.yesterday V/S noted. P= 60 PE: Lungs: clear Cor.: S1S2 Abd.: soft Ext.: no edema Neuro.: alert Labs noted. INR = 2.22, Cr. = 1.4, K+= 4.5 Joint fluid + for uric acid crystals Objective - Vital Signs/Intake and Output Vital Signs (last 24 hours): Temp Pulse Resp BP Pulse Ox 97.4 F L 60 16 106/57 L 98 07/21/17 16:00 07/22/17 07:49 07/21/17 16:00 07/22/17 07:49 07/21/17 17:13 Intake and Output: 07/22/17 07/22/17 06:59 18:59 Intake Total 100 Balance 100 - Medications Medications: Current Medications Allopurinol (Zyloprim) 100 mg PO BID YAA PRN Reason: Protocol Last Admin: 07/21/17 17:20 Dose: 100 mg Colchicine (Colocrys) 0.6 mg PO BID YAA PRN Reason: Protocol Last Admin: 07/21/17 17:19 Dose: 0.6 mg Digoxin (Digoxin) 0.125 mg PO Q48H YAA PRN Reason: Protocol Last Admin: 07/20/17 13:59 Dose: 0.125 mg Famotidine (Pepcid) 20 mg PO HS YAA PRN Reason: Protocol Last Admin: 07/21/17 21:31 Dose: 20 mg Furosemide (Lasix) 40 mg PO DAILY [facility] Last Admin: 07/21/17 10:19 Dose: 40 mg Milrinone Lactate/Dextrose (Primacor 20mg/100ml D5w) 100 mls @ 6.287 mls/hr IV .[id number] PRN; Protocol PRN Reason: TITRATE PER MD ORDER Last Admin: 07/22/17 07:49 Dose: 6.287 mls/hr Isosorbide Mononitrate (Imdur Er) 30 mg PO 0600 YAA PRN Reason: Protocol Last Admin: 07/22/17 05:51 Dose: 30 mg Levothyroxine Sodium (Synthroid) 112 mcg PO 0600 [facility] PRN Reason: Protocol Last Admin: 07/22/17 05:51 Dose: 112 mcg Losartan Potassium (Cozaar) 25 mg PO DAILY [facility] Last Admin: 07/21/17 17:19 Dose: 25 mg Metoprolol Succinate (Toprol Xl) 50 mg PO 0800 YAA PRN Reason: Protocol Last Admin: 07/21/17 07:55 Dose: 50 mg Morphine Sulfate (Morphine) 1 mg IVP Q6H PRN PRN Reason: Pain, severe (8-10) Last Admin: 07/21/17 14:09 Dose: 1 mg Polyethylene Glycol (Miralax) 17 gm PO BID YAA PRN Reason: Protocol Last Admin: 07/21/17 17:20 Dose: Not Given Prednisone (Prednisone Tab) 40 mg PO 0800 [facility] PRN Reason: Protocol Last Admin: 07/22/17 07:49 Dose: 40 mg Tramadol HCl (Ultram) 50 mg PO Q8H PRN PRN Reason: Pain, moderate (4-7) Last Admin: 07/21/17 06:09 Dose: 50 mg Warfarin Sodium (Coumadin) 6 mg PO 1800 [facility] PRN Reason: Protocol Last Admin: 07/21/17 17:19 Dose: 6 mg - Labs Labs: 07/21/17 07:00 07/22/17 06:30 PT 25.9 SECONDS (9.4-12.5) H 07/22/17 06:30 INR 2.22 (0.93-1.08) H 07/22/17 06:30 APTT 27.7 Seconds (25.1-36.5) 07/21/17 07:00 Assessment and Plan - Assessment and Plan (Free Text) Assessment: IVY CHF-IV on home milrinone infusion CCM Severe MR,TR and PH on echo Acute gout CKD Chronic AF on warfarin ICD CVA Hypothyroidism GB and Back surgery Former Smoker Plan: Continue cardiac meds and milrinone infusion RX for acute gout Monitor labs, INRs PT/Rehab efforts as tolerated. Will follow.
[2017-07-22] MEDS: POLYETHYLENE GLYCOL 3350 17 GM/Dose PACKET PO SCH ×2 (09:58→17:43)
--- NOTE | 2017-07-22 11:36 | CP.PCM.PN ---
<Delicia Burciaga - Last Filed: 07/22/17 11:28> Subjective - Date & Time of Evaluation Date of Evaluation: 07/22/17 Time of Evaluation: 11:28 - Subjective Subjective: Delicia Burciaga, PGY1, Medicine Progress Note for Dr Guerrero: Patient seen and examined at bedside. No acute events overnight. Reports that her knee and ankle pain are better, pt able to walk with PT yesterday. Denies fever, chills, nausea, vomiting, abdominal pain. Objective - Vital Signs/Intake and Output Vital Signs (last 24 hours): Temp Pulse Resp BP Pulse Ox 97.4 F L 69 16 126/66 98 07/21/17 16:00 07/22/17 09:57 07/21/17 16:00 07/22/17 09:57 07/21/17 17:13 Intake and Output: 07/22/17 07/22/17 06:59 18:59 Intake Total 100 Balance 100 - Medications Medications: Current Medications Allopurinol (Zyloprim) 100 mg PO BID YAA PRN Reason: Protocol Last Admin: 07/22/17 10:00 Dose: 100 mg Colchicine (Colocrys) 0.6 mg PO BID YAA PRN Reason: Protocol Last Admin: 07/22/17 09:55 Dose: 0.6 mg Digoxin (Digoxin) 0.125 mg PO Q48H YAA PRN Reason: Protocol Last Admin: 07/20/17 13:59 Dose: 0.125 mg Famotidine (Pepcid) 20 mg PO HS YAA PRN Reason: Protocol Last Admin: 07/21/17 21:31 Dose: 20 mg Furosemide (Lasix) 40 mg PO DAILY [facility] Last Admin: 07/22/17 09:57 Dose: 40 mg Milrinone Lactate/Dextrose (Primacor 20mg/100ml D5w) 100 mls @ 6.287 mls/hr IV .[id number] PRN; Protocol PRN Reason: TITRATE PER MD ORDER Last Admin: 07/22/17 07:49 Dose: 6.287 mls/hr Isosorbide Mononitrate (Imdur Er) 30 mg PO 0600 YAA PRN Reason: Protocol Last Admin: 07/22/17 05:51 Dose: 30 mg Levothyroxine Sodium (Synthroid) 112 mcg PO 0600 YAA PRN Reason: Protocol Last Admin: 07/22/17 05:51 Dose: 112 mcg Losartan Potassium (Cozaar) 25 mg PO DAILY [facility] Last Admin: 07/22/17 09:57 Dose: 25 mg Metoprolol Succinate (Toprol Xl) 50 mg PO 0800 [facility] PRN Reason: Protocol Last Admin: 07/22/17 08:00 Dose: 50 mg Morphine Sulfate (Morphine) 1 mg IVP Q6H PRN PRN Reason: Pain, severe (8-10) Last Admin: 07/21/17 14:09 Dose: 1 mg Polyethylene Glycol (Miralax) 17 gm PO BID YAA PRN Reason: Protocol Last Admin: 07/22/17 09:58 Dose: Not Given Prednisone (Prednisone Tab) 40 mg PO 0800 [facility] PRN Reason: Protocol Last Admin: 07/22/17 07:49 Dose: 40 mg Tramadol HCl (Ultram) 50 mg PO Q8H PRN PRN Reason: Pain, moderate (4-7) Last Admin: 07/21/17 06:09 Dose: 50 mg Warfarin Sodium (Coumadin) 4 mg PO 1800 [facility] PRN Reason: Protocol - Labs Labs: 07/21/17 07:00 07/22/17 06:30 PT 25.9 SECONDS (9.4-12.5) H 07/22/17 06:30 INR 2.22 (0.93-1.08) H 07/22/17 06:30 APTT 27.7 Seconds (25.1-36.5) 07/21/17 07:00 Assessment and Plan - Assessment and Plan (Free Text) Assessment: 86 year old female with PMH of Systolic CHF with EF of 8% and ICD placement on chronic IV milrinone therapy, A-fib on Coumadin, hypothyroidism, and gout admitted for lower extremity pain and difficulty ambulating 2/2 likely acute gout flare s/p intra-articular steroid injection, also found to have DAPHNE on CKD , which is improving. Pt transferred to TCU for rehab: Left ankle and foot pain/swellin/2 gout flare - Allopurinol, colchicine - decreased prednisone to 20 mg - Morphine - Tramadol - Miralax - PT - F/u outpatient with Ortho DAPHNE on CKD: - baseline Cr 1.3 - Cr 1.4 today - lasix, aldactone - hold losartan - Avoid nephrotoxic agents like NSAIDs - Feurea 19.1%, prerenal - Dr Marcum consulted. appreciate recs - Monitor daily Cr Hyperkalemia: - resolved - monitor supratheraputic INR: - resolved - INR therapeutic today - pt taking coumadin at home, 6 mg and 3 mg on alternating days - warfarin 4 mg - daily INR history of CHF: - at baseline per patient - continue milirone drip - consulted sleeping car conductor Dr. Alcantara. appreciate recs. History of Atrial fibrillation: - Rate controlled. home toprol - home Warfarin - INR daily History of Hypothyroidism: - Continue Synthroid Prophylaxis DVT: on warfarin GI: Protonix Case seen and discussed with Dr Guerrero. Delicia Burciaga, PGY1 <Marvin Guerrero - Last Filed: 07/22/17 17:30> Objective - Vital Signs/Intake and Output Vital Signs (last 24 hours): Temp Pulse Resp BP Pulse Ox 97.5 F L 69 20 114/55 L 98 07/22/17 16:00 07/22/17 16:00 07/22/17 16:00 07/22/17 16:00 07/22/17 16:00 Intake and Output: 07/22/17 07/22/17 06:59 18:59 Intake Total 100 Balance 100 - Medications Medications: Current Medications Allopurinol (Zyloprim) 100 mg PO 0800,1800 [facility] PRN Reason: Protocol Colchicine (Colocrys) 0.6 mg PO BID YAA PRN Reason: Protocol Last Admin: 07/22/17 09:55 Dose: 0.6 mg Digoxin (Digoxin) 0.125 mg PO Q48H YAA PRN Reason: Protocol Last Admin: 07/22/17 13:11 Dose: 0.125 mg Famotidine (Pepcid) 20 mg PO HS YAA PRN Reason: Protocol Last Admin: 07/21/17 21:31 Dose: 20 mg Furosemide (Lasix) 40 mg PO DAILY [facility] Last Admin: 07/22/17 09:57 Dose: 40 mg Milrinone Lactate/Dextrose (Primacor 20mg/100ml D5w) 100 mls @ 6.287 mls/hr IV .[id number] PRN; Protocol PRN Reason: TITRATE PER MD ORDER Last Admin: 07/22/17 07:49 Dose: 6.287 mls/hr Isosorbide Mononitrate (Imdur Er) 30 mg PO 0600 [facility] PRN Reason: Protocol Last Admin: 07/22/17 05:51 Dose: 30 mg Levothyroxine Sodium (Synthroid) 112 mcg PO 0600 [facility] PRN Reason: Protocol Last Admin: 07/22/17 05:51 Dose: 112 mcg Losartan Potassium (Cozaar) 25 mg PO DAILY [facility] Last Admin: 07/22/17 09:57 Dose: 25 mg Metoprolol Succinate (Toprol Xl) 50 mg PO 0800 [facility] PRN Reason: Protocol Last Admin: 07/22/17 08:00 Dose: 50 mg Morphine Sulfate (Morphine) 1 mg IVP Q6H PRN PRN Reason: Pain, severe (8-10) Last Admin: 07/21/17 14:09 Dose: 1 mg Polyethylene Glycol (Miralax) 17 gm PO BID YAA PRN Reason: Protocol Last Admin: 07/22/17 09:58 Dose: Not Given Prednisone (Prednisone Tab) 20 mg PO 0800 [facility] PRN Reason: Protocol Tramadol HCl (Ultram) 50 mg PO Q8H PRN PRN Reason: Pain, moderate (4-7) Last Admin: 07/21/17 06:09 Dose: 50 mg Warfarin Sodium (Coumadin) 4 mg PO 1800 [facility] PRN Reason: Protocol - Labs Labs: 07/21/17 07:00 07/22/17 06:30 PT 25.9 SECONDS (9.4-12.5) H 07/22/17 06:30 INR 2.22 (0.93-1.08) H 07/22/17 06:30 APTT 27.7 Seconds (25.1-36.5) 07/21/17 07:00 Attending/Attestation - Attestation I have personally seen and examined this patient.: Yes I have fully participated in the care of the patient.: Yes I have reviewed all pertinent clinical information, including history, physical exam and plan: Yes Notes (Text): 07/22/17 17:28 attending note; Patient seen and examined with resident in TCU. Patient is a 86 year old female with past medical history of systolic CHF s/p ICD on chronic milrinone therapy, afib on coumadin, hyothyroidism and CKD who presented with lower extremity pain, weakness with difficulty ambulating and chronic dyspnea. She was found to have acute on chronic renal failure. Acute on chronic kidney disease; creatinine is improving. Nephrology evaluation appreciated. on po lasix. history of A. fib;Continue Coumadin. INR is therapeutic. severe cardiomyopathy and ICD placement. Continue home milrinone. Left ankle swelling. acute gout flareup. Started on steroid, colchicine and allopurinol. Taper by mouth prednisone. avoid NSAIDs due to chronic kidney disease. x-rays negative for fracture. X-ray of the knee show chondrocalcinosis. orthopedics evaluation appreciated. Status post steroidal injection to left knee. pain is improving. patient is DNI DNR. continue physical therapy/occupational therapy. Upon discharge the patient will follow-up with PMD . 07/22/17 17:29
[2017-07-22] MEDS: Digoxin 125 mcg (0.125 mg) Tab PO SCH (13:11)
--- NOTE | 2017-07-22 16:02 | CP.PCM.PN ---
Subjective - Date & Time of Evaluation Date of Evaluation: 07/22/17 Time of Evaluation: 12:00 - Subjective Subjective: Reports feeling well; no increased sob; tolerating diet; Objective - Vital Signs/Intake and Output Vital Signs (last 24 hours): Temp Pulse Resp BP Pulse Ox 97.4 F L 69 16 126/66 98 07/21/17 16:00 07/22/17 09:57 07/21/17 16:00 07/22/17 09:57 07/21/17 17:13 Intake and Output: 07/22/17 07/22/17 06:59 18:59 Intake Total 100 Balance 100 - Medications Medications: Current Medications Allopurinol (Zyloprim) 100 mg PO BID YAA PRN Reason: Protocol Last Admin: 07/22/17 10:00 Dose: 100 mg Colchicine (Colocrys) 0.6 mg PO BID YAA PRN Reason: Protocol Last Admin: 07/22/17 09:55 Dose: 0.6 mg Digoxin (Digoxin) 0.125 mg PO Q48H YAA PRN Reason: Protocol Last Admin: 07/22/17 13:11 Dose: 0.125 mg Famotidine (Pepcid) 20 mg PO HS YAA PRN Reason: Protocol Last Admin: 07/21/17 21:31 Dose: 20 mg Furosemide (Lasix) 40 mg PO DAILY [facility] Last Admin: 07/22/17 09:57 Dose: 40 mg Milrinone Lactate/Dextrose (Primacor 20mg/100ml D5w) 100 mls @ 6.287 mls/hr IV .[id number] PRN; Protocol PRN Reason: TITRATE PER MD ORDER Last Admin: 07/22/17 07:49 Dose: 6.287 mls/hr Isosorbide Mononitrate (Imdur Er) 30 mg PO 0600 YAA PRN Reason: Protocol Last Admin: 07/22/17 05:51 Dose: 30 mg Levothyroxine Sodium (Synthroid) 112 mcg PO 0600 YAA PRN Reason: Protocol Last Admin: 07/22/17 05:51 Dose: 112 mcg Losartan Potassium (Cozaar) 25 mg PO DAILY [facility] Last Admin: 07/22/17 09:57 Dose: 25 mg Metoprolol Succinate (Toprol Xl) 50 mg PO 0800 YAA PRN Reason: Protocol Last Admin: 07/22/17 08:00 Dose: 50 mg Morphine Sulfate (Morphine) 1 mg IVP Q6H PRN PRN Reason: Pain, severe (8-10) Last Admin: 07/21/17 14:09 Dose: 1 mg Polyethylene Glycol (Miralax) 17 gm PO BID YAA PRN Reason: Protocol Last Admin: 07/22/17 09:58 Dose: Not Given Prednisone (Prednisone Tab) 20 mg PO 0800 [facility]AA PRN Reason: Protocol Tramadol HCl (Ultram) 50 mg PO Q8H PRN PRN Reason: Pain, moderate (4-7) Last Admin: 07/21/17 06:09 Dose: 50 mg Warfarin Sodium (Coumadin) 4 mg PO 1800 YAA PRN Reason: Protocol - Labs Labs: 07/21/17 07:00 07/22/17 06:30 PT 25.9 SECONDS (9.4-12.5) H 07/22/17 06:30 INR 2.22 (0.93-1.08) H 07/22/17 06:30 APTT 27.7 Seconds (25.1-36.5) 07/21/17 07:00 - Constitutional Appears: Non-toxic, No Acute Distress - Eye Exam Eye Exam: absent: Scleral icterus - ENT Exam ENT Exam: Mucous Membranes Moist - Respiratory Exam Respiratory Exam: Clear to Ausculation Bilateral. absent: Respiratory Distress - Cardiovascular Exam Cardiovascular Exam: RRR, +S1, +S2 - GI/Abdominal Exam GI & Abdominal Exam: Soft. absent: Distended - Extremities Exam Additional comments: mild lower leg edema b/l; - Neurological Exam Neurological Exam: Alert, Awake - Psychiatric Exam Psychiatric exam: Normal Mood. absent: Agitated - Skin Skin Exam: Warm. absent: Cyanosis Assessment and Plan (1) DAPHNE (acute kidney injury) Assessment & Plan: Resolved; continue to avoid nephrotoxic agents, especially NSAIDS; continue to optimize cardiac status; Status: Acute (2) Congestive heart failure Assessment & Plan: With severe systolic dysfunction; currently euvolemic; continue current meds, can increase losartan as tolerated; -daily standing weights; Status: Chronic (3) Gout Assessment & Plan: Symptoms improved; continue allopurinol; Status: Chronic
[2017-07-23] MEDS: Levothyroxine 112 MCG TAB PO SCH (06:17)
[2017-07-23 06:59] LABS: INR 2.48 (0.93-1.08)
[2017-07-23] MEDS: Metoprolol Succinate 50 mg XL Tab PO SCH (08:55)
--- NOTE | 2017-07-23 12:49 | PN ---
DATE: 07/23/2017 SUBJECTIVE: The patient is seen sitting in a chair on Transitional Care Unit. She feels fairly well. She continues to have some knee pain. She has had loose stools for the past three days, which are getting progressively worse. She denies any dyspnea and has no edema. MEDICATIONS: Her current medications include colchicine 0.6 mg b.i.d, warfarin, Cozaar 25 mg daily, digoxin 0.125 mg every other day, Imdur 30 mg daily, Lasix 40 mg daily, MiraLax, Pepcid, prednisone 20 mg daily, IV milrinone, Synthroid, Toprol-XL 50 mg daily and Zyloprim. PHYSICAL EXAMINATION GENERAL: She is a very elderly woman who appears comfortable at the present time. VITAL SIGNS: Blood pressure is 122/70 with a pulse of 90, respirations are 16. She is afebrile. HEENT: No JVD. CHEST: Few scattered rhonchi. HEART: PMI displaced laterally with soft tones noted. ABDOMEN: Soft, nontender, normoactive bowel sounds. EXTREMITIES: No edema. DIAGNOSTIC DATA: INR is 2.48. IMPRESSION: 1. Recent acute gout, clinically improved. 2. Chronic severe systolic congestive heart failure secondary to dilated cardiomyopathy. 3. Status post implantable cardioverter-defibrillator implant. 4. Diarrhea, likely secondary to colchicine use. RECOMMENDATIONS: Her calcium replaced on hold for now. Her MiraLax will be held as well. Rest of her medications will continue unchanged. Conservative management is advised. We will continue to follow and make further recommendations as appropriate. Dino Thompson MD
[2017-07-23] MEDS: Milrinone 20mg/100ml D5W 100 ML IV PRN (13:50)
--- NOTE | 2017-07-23 15:26 | CP.PCM.PN ---
Subjective - Date & Time of Evaluation Date of Evaluation: 07/23/17 Time of Evaluation: 12:00 - Subjective Subjective: Patient reports feeling well; sob stable; still with L knee pain but improved; Objective - Vital Signs/Intake and Output Vital Signs (last 24 hours): Temp Pulse Resp BP Pulse Ox 98.0 F 69 20 123/53 L 98 07/22/17 22:00 07/23/17 13:50 07/22/17 22:00 07/23/17 13:50 07/22/17 16:00 Intake and Output: 07/23/17 07/23/17 06:59 18:59 Intake Total 100 520 Balance 100 520 - Medications Medications: Current Medications Allopurinol (Zyloprim) 100 mg PO 0800,1800 YAA PRN Reason: Protocol Last Admin: 07/23/17 07:55 Dose: 100 mg Colchicine (Colocrys) 0.6 mg PO BID YAA PRN Reason: Protocol Last Admin: 07/22/17 17:42 Dose: 0.6 mg Digoxin (Digoxin) 0.125 mg PO Q48H YAA PRN Reason: Protocol Last Admin: 07/22/17 13:11 Dose: 0.125 mg Famotidine (Pepcid) 20 mg PO HS YAA PRN Reason: Protocol Last Admin: 07/22/17 21:57 Dose: 20 mg Furosemide (Lasix) 40 mg PO DAILY [facility] Last Admin: 07/23/17 10:07 Dose: 40 mg Milrinone Lactate/Dextrose (Primacor 20mg/100ml D5w) 100 mls @ 6.287 mls/hr IV .[id number] PRN; Protocol PRN Reason: TITRATE PER MD ORDER Last Admin: 07/23/17 13:50 Dose: 6.287 mls/hr Isosorbide Mononitrate (Imdur Er) 30 mg PO 0600 YAA PRN Reason: Protocol Last Admin: 07/23/17 06:17 Dose: 30 mg Levothyroxine Sodium (Synthroid) 112 mcg PO 0600 YAA PRN Reason: Protocol Last Admin: 07/23/17 06:17 Dose: 112 mcg Losartan Potassium (Cozaar) 25 mg PO DAILY [facility] Last Admin: 07/23/17 10:08 Dose: 25 mg Metoprolol Succinate (Toprol Xl) 50 mg PO 0800 YAA PRN Reason: Protocol Last Admin: 07/23/17 08:55 Dose: 50 mg Morphine Sulfate (Morphine) 1 mg IVP Q6H PRN PRN Reason: Pain, severe (8-10) Last Admin: 07/21/17 14:09 Dose: 1 mg Polyethylene Glycol (Miralax) 17 gm PO BID YAA PRN Reason: Protocol Last Admin: 07/22/17 17:43 Dose: Not Given Prednisone (Prednisone Tab) 20 mg PO 0800 [facility] PRN Reason: Protocol Last Admin: 07/23/17 08:56 Dose: 20 mg Tramadol HCl (Ultram) 50 mg PO Q8H PRN PRN Reason: Pain, moderate (4-7) Last Admin: 07/23/17 06:19 Dose: 50 mg Warfarin Sodium (Coumadin) 4 mg PO 1800 [facility]AA PRN Reason: Protocol Last Admin: 07/22/17 17:42 Dose: 4 mg - Labs Labs: 07/21/17 07:00 07/22/17 06:30 PT 29.0 SECONDS (9.4-12.5) H 07/23/17 06:30 INR 2.48 (0.93-1.08) H 07/23/17 06:30 APTT 27.7 Seconds (25.1-36.5) 07/21/17 07:00 - Constitutional Appears: Non-toxic, No Acute Distress - Eye Exam Eye Exam: Normal appearance. absent: Scleral icterus - ENT Exam ENT Exam: Mucous Membranes Moist - Respiratory Exam Respiratory Exam: absent: Respiratory Distress Additional comments: fine rales at b/l bases; - Cardiovascular Exam Cardiovascular Exam: RRR, +S1, +S2. absent: Gallop - GI/Abdominal Exam GI & Abdominal Exam: Soft. absent: Distended, Tenderness - Extremities Exam Additional comments: Mild lower leg edema b/l - Neurological Exam Neurological Exam: Alert, Awake - Psychiatric Exam Psychiatric exam: Normal Mood. absent: Agitated - Skin Skin Exam: Warm. absent: Cyanosis Assessment and Plan (1) DAPHNE (acute kidney injury) Assessment & Plan: Resolved; continue to optimize cardiac status and avoid nephrotoxic agents; Status: Acute (2) Congestive heart failure Assessment & Plan: Severe chronic systolic CHF; weights stable on current diuretic regimen of lasix 40 mg PO daily; will increase losartan to 50 mg daily as BP and renal function stable (was on 100 mg at home); -continue to obtain daily standing weights; if any increase, should give additional lasix dose in pm; Status: Chronic (3) Gout Assessment & Plan: Started on allopurinol, should remain on losartan as ARB of choice for its urate lowering activity; Status: Chronic
[2017-07-24] MEDS: Levothyroxine 112 MCG TAB PO SCH (05:33)
[2017-07-24] MEDS: Milrinone 20mg/100ml D5W 100 ML IV PRN ×2 (06:33→22:50)
[2017-07-24 06:58] LABS: INR 2.44 (0.93-1.08); PROTHROMBIN TIME 28.6 SECONDS (9.4-12.5)
[2017-07-24] MEDS: Metoprolol Succinate 50 mg XL Tab PO SCH (08:15)
--- NOTE | 2017-07-24 10:08 | CP.PCM.PN ---
<Jose Antonio Hoskins - Last Filed: 07/24/17 10:14> Subjective - Date & Time of Evaluation Date of Evaluation: 07/24/17 Time of Evaluation: 07:35 - Subjective Subjective: PGY1 Medicine Note for Dr. Guerrero Patient seen and examined this morning at bedside. No acute events overnight. Patient states that her leg pains are improving day by day and that she has been able to walk with PT. She had one loose bowel movement yesterday, but her miralax was recently placed on hold. She has no complaints at this time. Denies fevers, chills, nausea, vomiting, chest pain, shortness of breath, abdominal pain. Objective - Vital Signs/Intake and Output Vital Signs (last 24 hours): Temp Pulse Resp BP Pulse Ox 97.0 F L 70 20 116/64 98 07/24/17 06:00 07/24/17 08:15 07/24/17 06:00 07/24/17 09:44 07/24/17 06:00 Intake and Output: 07/24/17 07/24/17 06:59 18:59 Intake Total 460 Balance 460 - Medications Medications: Current Medications Allopurinol (Zyloprim) 100 mg PO 0800,1800 [facility] PRN Reason: Protocol Last Admin: 07/24/17 08:15 Dose: 100 mg Colchicine (Colocrys) 0.6 mg PO BID [facility] PRN Reason: Protocol Last Admin: 07/22/17 17:42 Dose: 0.6 mg Digoxin (Digoxin) 0.125 mg PO Q48H [facility] PRN Reason: Protocol Last Admin: 07/22/17 13:11 Dose: 0.125 mg Famotidine (Pepcid) 20 mg PO HS [facility]AA PRN Reason: Protocol Last Admin: 07/23/17 22:11 Dose: 20 mg Furosemide (Lasix) 40 mg PO DAILY [facility] Last Admin: 07/24/17 09:44 Dose: 40 mg Milrinone Lactate/Dextrose (Primacor 20mg/100ml D5w) 100 mls @ 6.287 mls/hr IV .[id number] PRN; Protocol PRN Reason: TITRATE PER MD ORDER Last Admin: 07/24/17 06:33 Dose: 6.287 mls/hr Isosorbide Mononitrate (Imdur Er) 30 mg PO 0600 [facility] PRN Reason: Protocol Last Admin: 07/24/17 05:33 Dose: 30 mg Levothyroxine Sodium (Synthroid) 112 mcg PO 0600 [facility] PRN Reason: Protocol Last Admin: 07/24/17 05:33 Dose: 112 mcg Losartan Potassium (Cozaar) 50 mg PO DAILY [facility] Metoprolol Succinate (Toprol Xl) 50 mg PO 0800 [facility] PRN Reason: Protocol Last Admin: 07/24/17 08:15 Dose: 50 mg Morphine Sulfate (Morphine) 1 mg IVP Q6H PRN PRN Reason: Pain, severe (8-10) Last Admin: 07/21/17 14:09 Dose: 1 mg Polyethylene Glycol (Miralax) 17 gm PO BID [facility] PRN Reason: Protocol Last Admin: 07/22/17 17:43 Dose: Not Given Prednisone (Prednisone Tab) 20 mg PO 0800 [facility] PRN Reason: Protocol Last Admin: 07/24/17 08:15 Dose: 20 mg Tramadol HCl (Ultram) 50 mg PO Q8H PRN PRN Reason: Pain, moderate (4-7) Last Admin: 07/23/17 22:21 Dose: 50 mg Warfarin Sodium (Coumadin) 4 mg PO 1800 [facility] PRN Reason: Protocol Last Admin: 07/23/17 17:35 Dose: 4 mg - Labs Labs: 07/21/17 07:00 07/22/17 06:30 PT 28.6 SECONDS (9.4-12.5) H 07/24/17 05:30 INR 2.44 (0.93-1.08) H 07/24/17 05:30 APTT 27.7 Seconds (25.1-36.5) 07/21/17 07:00 - Constitutional Appears: Non-toxic, No Acute Distress - Head Exam Head Exam: ATRAUMATIC, NORMOCEPHALIC - Eye Exam Eye Exam: Normal appearance - ENT Exam ENT Exam: Mucous Membranes Moist - Respiratory Exam Respiratory Exam: NORMAL BREATHING PATTERN. absent: Respiratory Distress - GI/Abdominal Exam GI & Abdominal Exam: Soft. absent: Distended, Firm, Guarding, Rigid, Tenderness - Extremities Exam Extremities Exam: Pedal Edema (trace edema b/l). absent: Calf Tenderness, Tenderness - Neurological Exam Neurological Exam: Alert, Awake, CN II-XII Intact, Oriented x3 - Psychiatric Exam Psychiatric exam: Normal Affect, Normal Mood - Skin Skin Exam: Dry, Warm Assessment and Plan - Assessment and Plan (Free Text) Assessment: 86 year old female with PMH of Systolic CHF with EF of 8% and ICD placement on chronic IV milrinone therapy, A-fib on Coumadin, hypothyroidism, and gout admitted for lower extremity pain and difficulty ambulating 2/2 likely acute gout flare s/p intra-articular steroid injection, also found to have DAPHNE on CKD , which is improving. Pt transferred to TCU for rehab: Plan: Left ankle and foot pain/swelling 2/2 gout flare - Allopurinol 100mg PO BID - Colchicine 0.6mg PO BID - Prednisone to 20 mg - Tramadol 50 mg PO q8h prn - Miralax - held - PT - F/u outpatient with Ortho DAPHNE on CKD - baseline Cr 1.3 - Lasix 40 mg PO daily - Aldactone - Losartan 50 mg PO daily - Avoid nephrotoxic agents like NSAIDs - Feurea 19.1%, prerenal - Dr Marcum consulted. appreciate recs Hyperkalemia - resolved supratheraputic INR - resolved - INR therapeutic today - 2.44 (Therapeutic for 3 days in a row. No need for daily INR check now, can be weekly) - pt taking coumadin at home, 6 mg and 3 mg on alternating days - discontinued - Switched to warfarin 4 mg PO daily history of CHF - at baseline per patient - Digoxin 0.125mg PO q48h - Imdur 30mg PO daily - Metoprolol 50mg PO daily - milirone drip - consulted napper runner Dr. Alcantara. appreciate recs. History of Atrial fibrillation - Rate controlled. home toprol - Warfarin 4 mg PO daily History of Hypothyroidism - Continue Synthroid 112mcg PO daily Prophylactic Care DVT - Warfarin 4 mg PO daily GI - Pepcid 20mg PO HS DISPO: Patient is to continue her rehab. She is currently approved for TCU until 07/27. Case discussed with Dr. Cesar Brady Aidee PGY1 <Marvin Guerrero - Last Filed: 07/24/17 10:44> Objective - Vital Signs/Intake and Output Vital Signs (last 24 hours): Temp Pulse Resp BP Pulse Ox 97.0 F L 70 20 116/64 98 07/24/17 06:00 07/24/17 10:09 07/24/17 06:00 07/24/17 10:09 07/24/17 06:00 Intake and Output: 07/24/17 07/24/17 06:59 18:59 Intake Total 460 Balance 460 - Medications Medications: Current Medications Allopurinol (Zyloprim) 100 mg PO 0800,1800 [facility] PRN Reason: Protocol Last Admin: 07/24/17 08:15 Dose: 100 mg Colchicine (Colocrys) 0.6 mg PO BID [facility] PRN Reason: Protocol Last Admin: 07/22/17 17:42 Dose: 0.6 mg Digoxin (Digoxin) 0.125 mg PO Q48H [facility] PRN Reason: Protocol Last Admin: 07/22/17 13:11 Dose: 0.125 mg Famotidine (Pepcid) 20 mg PO HS [facility] PRN Reason: Protocol Last Admin: 07/23/17 22:11 Dose: 20 mg Furosemide (Lasix) 40 mg PO DAILY [facility] Last Admin: 07/24/17 09:44 Dose: 40 mg Milrinone Lactate/Dextrose (Primacor 20mg/100ml D5w) 100 mls @ 6.287 mls/hr IV .[id number] PRN; Protocol PRN Reason: TITRATE PER MD ORDER Last Admin: 07/24/17 06:33 Dose: 6.287 mls/hr Isosorbide Mononitrate (Imdur Er) 30 mg PO 0600 [facility] PRN Reason: Protocol Last Admin: 07/24/17 05:33 Dose: 30 mg Levothyroxine Sodium (Synthroid) 112 mcg PO 0600 [facility] PRN Reason: Protocol Last Admin: 07/24/17 05:33 Dose: 112 mcg Losartan Potassium (Cozaar) 50 mg PO DAILY [facility] Last Admin: 07/24/17 10:09 Dose: 50 mg Metoprolol Succinate (Toprol Xl) 50 mg PO 0800 [facility] PRN Reason: Protocol Last Admin: 07/24/17 08:15 Dose: 50 mg Polyethylene Glycol (Miralax) 17 gm PO BID [facility] PRN Reason: Protocol Last Admin: 07/22/17 17:43 Dose: Not Given Prednisone (Prednisone Tab) 20 mg PO 0800 [facility] PRN Reason: Protocol Last Admin: 07/24/17 08:15 Dose: 20 mg Tramadol HCl (Ultram) 50 mg PO Q8H PRN PRN Reason: Pain, moderate (4-7) Last Admin: 07/23/17 22:21 Dose: 50 mg Warfarin Sodium (Coumadin) 4 mg PO 1800 [facility] PRN Reason: Protocol Last Admin: 07/23/17 17:35 Dose: 4 mg - Labs Labs: 07/21/17 07:00 07/22/17 06:30 PT 28.6 SECONDS (9.4-12.5) H 07/24/17 05:30 INR 2.44 (0.93-1.08) H 07/24/17 05:30 APTT 27.7 Seconds (25.1-36.5) 07/21/17 07:00 Attending/Attestation - Attestation I have personally seen and examined this patient.: Yes I have fully participated in the care of the patient.: Yes I have reviewed all pertinent clinical information, including history, physical exam and plan: Yes Notes (Text): 07/24/17 10:39 attending note; Patient seen and examined with resident in TCU. Patient is a 86 year old female with past medical history of systolic CHF s/p ICD on chronic milrinone therapy, afib on coumadin, hyothyroidism and CKD who presented with lower extremity pain, weakness with difficulty ambulating and chronic dyspnea. She was found to have acute on chronic renal failure. Acute on chronic kidney disease; creatinine is improving. Nephrology evaluation appreciated. on po lasix. history of A. fib;Continue Coumadin. INR is therapeutic. severe cardiomyopathy and ICD placement. Continue home milrinone. Left ankle swelling. acute gout flareup. Started on steroid, colchicine and allopurinol. Taper prednisone today. patient is DNI DNR. continue physical therapy/occupational therapy. Upon discharge the patient will follow-up with PMD .
[2017-07-24] MEDS: Digoxin 125 mcg (0.125 mg) Tab PO SCH (13:03)
--- NOTE | 2017-07-24 17:15 | PN ---
DATE: 07/24/2017 SUBJECTIVE: The patient is seen lying in bed on Transitional Care Unit. She feels significantly better. Her knee pain is improving. Her diarrhea has resolved upon discontinuation of colchicine use. CURRENT MEDICATIONS: Include IV milrinone, Zyloprim, tramadol p.r.n., Toprol XL 50 mg daily, Synthroid, prednisone 20 mg daily, Pepcid, Lasix 40 mg daily, Imdur, digoxin 0.125 mg every other day, Cozaar 50 mg daily, and Coumadin. OBJECTIVE: GENERAL: She is a very elderly woman, appears comfortable at rest. VITAL SIGNS: Blood pressure is 116/64, pulse 70, respirations are 14. She is afebrile. HEENT: No JVD. CHEST: Bilateral scattered rhonchi. HEART: PMI displaced laterally with soft tones noted and soft systolic murmur in the apex. ABDOMEN: Soft, nontender, normoactive bowel sounds. EXTREMITIES: No edema at present. DIAGNOSTIC DATA: INR 2.44. IMPRESSION: 1. Chronic congestive heart failure with severe left ventricular systolic dysfunction, appears fairly well-compensated at the present time. 2. Congestive cardiomyopathy. 3. Recent acute gout, improved with Zyloprim and colchicine. 4. Recent diarrhea likely due to colchicine use. 5. Rest of problems as noted. RECOMMENDATIONS: From a cardiac standpoint, her current medications should continue. Increased activities as tolerated are advised. Her overall prognosis remains limited. We will continue to follow and make further recommendations as appropriate. Dino Thompson MD MTDD
[2017-07-25] MEDS: Levothyroxine 112 MCG TAB PO SCH (05:49)
--- NOTE | 2017-07-25 07:46 | CP.PCM.PN ---
Subjective - Date & Time of Evaluation Date of Evaluation: 07/25/17 Time of Evaluation: 07:00 - Subjective Subjective: Stable in TCU now. No CP or SOB. Knee pain better. She feels better. Was OOB with amb.yesterday V/S noted. P= 60 - 70 PE: Lungs: clear Cor.: S1S2 Abd.: soft Ext.: no edema Neuro.: alert Labs noted 07/24: INR = 2.44 Joint fluid + for uric acid crystals Objective - Vital Signs/Intake and Output Vital Signs (last 24 hours): Temp Pulse Resp BP Pulse Ox 98.7 F 70 20 119/64 99 07/25/17 06:00 07/25/17 06:00 07/25/17 06:00 07/25/17 06:00 07/24/17 22:00 Intake and Output: 07/25/17 07/25/17 06:59 18:59 Intake Total 100 Balance 100 - Medications Medications: Current Medications Allopurinol (Zyloprim) 100 mg PO 0800,1800 [facility] PRN Reason: Protocol Last Admin: 07/24/17 17:29 Dose: 100 mg Colchicine (Colocrys) 0.6 mg PO BID [facility] PRN Reason: Protocol Last Admin: 07/22/17 17:42 Dose: 0.6 mg Digoxin (Digoxin) 0.125 mg PO Q48H [facility] PRN Reason: Protocol Last Admin: 07/24/17 13:03 Dose: 0.125 mg Famotidine (Pepcid) 20 mg PO HS [facility] PRN Reason: Protocol Last Admin: 07/24/17 21:57 Dose: 20 mg Furosemide (Lasix) 40 mg PO DAILY [facility] Last Admin: 07/24/17 09:44 Dose: 40 mg Milrinone Lactate/Dextrose (Primacor 20mg/100ml D5w) 100 mls @ 6.287 mls/hr IV .[id number] PRN; Protocol PRN Reason: TITRATE PER MD ORDER Last Admin: 07/24/17 22:50 Dose: 6.287 mls/hr Isosorbide Mononitrate (Imdur Er) 30 mg PO 0600 [facility] PRN Reason: Protocol Last Admin: 07/25/17 05:49 Dose: 30 mg Levothyroxine Sodium (Synthroid) 112 mcg PO 0600 [facility] PRN Reason: Protocol Last Admin: 07/25/17 05:49 Dose: 112 mcg Losartan Potassium (Cozaar) 50 mg PO DAILY [facility] Last Admin: 07/24/17 10:09 Dose: 50 mg Metoprolol Succinate (Toprol Xl) 50 mg PO 0800 [facility] PRN Reason: Protocol Last Admin: 07/24/17 08:15 Dose: 50 mg Polyethylene Glycol (Miralax) 17 gm PO BID [facility] PRN Reason: Protocol Last Admin: 07/22/17 17:43 Dose: Not Given Prednisone (Prednisone Tab) 20 mg PO 0800 [facility] PRN Reason: Protocol Last Admin: 07/24/17 08:15 Dose: 20 mg Tramadol HCl (Ultram) 50 mg PO Q8H PRN PRN Reason: Pain, moderate (4-7) Last Admin: 07/24/17 21:58 Dose: 50 mg Warfarin Sodium (Coumadin) 4 mg PO 1800 [facility] PRN Reason: Protocol Last Admin: 07/24/17 17:29 Dose: 4 mg - Labs Labs: 07/21/17 07:00 07/22/17 06:30 PT 28.6 SECONDS (9.4-12.5) H 07/24/17 05:30 INR 2.44 (0.93-1.08) H 07/24/17 05:30 APTT 27.7 Seconds (25.1-36.5) 07/21/17 07:00 Assessment and Plan - Assessment and Plan (Free Text) Assessment: IVY CHF-IV on home milrinone infusion CCM Severe MR,TR and PH on echo Acute gout CKD Chronic AF on warfarin ICD CVA Hypothyroidism GB and Back surgery Former Smoker Plan: Continue cardiac meds and milrinone infusion RX for acute gout. Taper steroids as per medical team Check labs, INR and UA 07/26 PT/Rehab efforts as tolerated. Will follow.
[2017-07-25] MEDS: Metoprolol Succinate 50 mg XL Tab PO SCH (08:03)
[2017-07-25] MEDS: Milrinone 20mg/100ml D5W 100 ML IV PRN (17:24)
--- NOTE | 2017-07-25 18:16 | CP.PCM.PN ---
Subjective - Date & Time of Evaluation Date of Evaluation: 07/25/17 Time of Evaluation: 12:00 - Subjective Subjective: Reports feeling well; dyspnea is at baseline; able to ambulate moran without distress; Objective - Vital Signs/Intake and Output Vital Signs (last 24 hours): Temp Pulse Resp BP Pulse Ox 98.7 F 87 20 101/51 L 99 07/25/17 06:00 07/25/17 10:27 07/25/17 06:00 07/25/17 10:27 07/24/17 22:00 Intake and Output: 07/25/17 07/25/17 06:59 18:59 Intake Total 100 520 Balance 100 520 - Medications Medications: Current Medications Allopurinol (Zyloprim) 100 mg PO 0800,1800 [facility] PRN Reason: Protocol Last Admin: 07/25/17 17:27 Dose: 100 mg Colchicine (Colocrys) 0.6 mg PO BID [facility] PRN Reason: Protocol Last Admin: 07/22/17 17:42 Dose: 0.6 mg Digoxin (Digoxin) 0.125 mg PO Q48H [facility] PRN Reason: Protocol Last Admin: 07/24/17 13:03 Dose: 0.125 mg Famotidine (Pepcid) 20 mg PO HS [facility] PRN Reason: Protocol Last Admin: 07/24/17 21:57 Dose: 20 mg Furosemide (Lasix) 40 mg PO DAILY [facility] Last Admin: 07/25/17 10:26 Dose: 40 mg Furosemide (Lasix) 40 mg PO DAILY@1800 [facility] Milrinone Lactate/Dextrose (Primacor 20mg/100ml D5w) 100 mls @ 6.287 mls/hr IV .[id number] PRN; Protocol PRN Reason: TITRATE PER MD ORDER Last Admin: 07/25/17 17:24 Dose: 6.287 mls/hr Isosorbide Mononitrate (Imdur Er) 30 mg PO 0600 [facility] PRN Reason: Protocol Last Admin: 07/25/17 05:49 Dose: 30 mg Levothyroxine Sodium (Synthroid) 112 mcg PO 0600 [facility] PRN Reason: Protocol Last Admin: 07/25/17 05:49 Dose: 112 mcg Losartan Potassium (Cozaar) 50 mg PO DAILY [facility] Last Admin: 07/25/17 10:27 Dose: 50 mg Metoprolol Succinate (Toprol Xl) 50 mg PO 0800 [facility] PRN Reason: Protocol Last Admin: 07/25/17 08:03 Dose: 50 mg Polyethylene Glycol (Miralax) 17 gm PO BID [facility] PRN Reason: Protocol Last Admin: 07/22/17 17:43 Dose: Not Given Prednisone (Prednisone Tab) 20 mg PO 0800 [facility] PRN Reason: Protocol Last Admin: 07/25/17 08:03 Dose: 20 mg Tramadol HCl (Ultram) 50 mg PO Q8H PRN PRN Reason: Pain, moderate (4-7) Last Admin: 07/25/17 11:05 Dose: 50 mg Warfarin Sodium (Coumadin) 4 mg PO 1800 [facility] PRN Reason: Protocol Last Admin: 07/25/17 17:23 Dose: 4 mg - Labs Labs: 07/21/17 07:00 07/22/17 06:30 PT 28.6 SECONDS (9.4-12.5) H 07/24/17 05:30 INR 2.44 (0.93-1.08) H 07/24/17 05:30 APTT 27.7 Seconds (25.1-36.5) 07/21/17 07:00 - Constitutional Appears: Non-toxic, No Acute Distress - Eye Exam Eye Exam: absent: Scleral icterus - ENT Exam ENT Exam: Mucous Membranes Moist - Respiratory Exam Respiratory Exam: Rales. absent: Respiratory Distress - Cardiovascular Exam Cardiovascular Exam: RRR Additional comments: systolic murmur present at apex - GI/Abdominal Exam GI & Abdominal Exam: Soft. absent: Distended, Tenderness - Extremities Exam Additional comments: mild lower leg edema b/l; - Neurological Exam Neurological Exam: Alert, Awake - Psychiatric Exam Psychiatric exam: Normal Mood. absent: Agitated - Skin Skin Exam: Warm. absent: Cyanosis Assessment and Plan (1) DAPHNE (acute kidney injury) Assessment & Plan: Resolved; continue to optimize cardiac status; Status: Acute (2) Congestive heart failure Assessment & Plan: Weight increase by 6 lbs in 3 days, unclear if accurate since patient reports no increased dyspnea; on lasix PO 40 mg daily, will give additional dose in pm today and re-assess; Status: Chronic (3) Gout Assessment & Plan: Symptoms much improved; continue allopurinol; Status: Chronic
--- NOTE | 2017-07-25 18:17 | CP.PCM.PN ---
Subjective - Date & Time of Evaluation Date of Evaluation: 07/25/17 Time of Evaluation: 18:14 - Subjective Subjective: Patient alert and awake, sitting up in the chair. Patient states she feels much better, she has less pain. She has ambulated. VSS L knee: mild effusion, mild diffuse tenderness to palpation. AROM 0-100. Thigh and calf are soft nontender. NVI distally Cont Pt can f/u in Dr. Hope office Objective - Vital Signs/Intake and Output Vital Signs (last 24 hours): Temp Pulse Resp BP Pulse Ox 98.7 F 87 20 101/51 L 99 07/25/17 06:00 07/25/17 10:27 07/25/17 06:00 07/25/17 10:27 07/24/17 22:00 Intake and Output: 07/25/17 07/25/17 06:59 18:59 Intake Total 100 520 Balance 100 520 - Medications Medications: Current Medications Allopurinol (Zyloprim) 100 mg PO 0800,1800 [facility] PRN Reason: Protocol Last Admin: 07/25/17 17:27 Dose: 100 mg Colchicine (Colocrys) 0.6 mg PO BID [facility] PRN Reason: Protocol Last Admin: 07/22/17 17:42 Dose: 0.6 mg Digoxin (Digoxin) 0.125 mg PO Q48H [facility] PRN Reason: Protocol Last Admin: 07/24/17 13:03 Dose: 0.125 mg Famotidine (Pepcid) 20 mg PO HS [facility] PRN Reason: Protocol Last Admin: 07/24/17 21:57 Dose: 20 mg Furosemide (Lasix) 40 mg PO DAILY [facility] Last Admin: 07/25/17 10:26 Dose: 40 mg Furosemide (Lasix) 40 mg PO DAILY@1800 [facility] Milrinone Lactate/Dextrose (Primacor 20mg/100ml D5w) 100 mls @ 6.287 mls/hr IV .[id number] PRN; Protocol PRN Reason: TITRATE PER MD ORDER Last Admin: 07/25/17 17:24 Dose: 6.287 mls/hr Isosorbide Mononitrate (Imdur Er) 30 mg PO 0600 [facility] PRN Reason: Protocol Last Admin: 07/25/17 05:49 Dose: 30 mg Levothyroxine Sodium (Synthroid) 112 mcg PO 0600 [facility] PRN Reason: Protocol Last Admin: 07/25/17 05:49 Dose: 112 mcg Losartan Potassium (Cozaar) 50 mg PO DAILY [facility] Last Admin: 07/25/17 10:27 Dose: 50 mg Metoprolol Succinate (Toprol Xl) 50 mg PO 0800 [facility] PRN Reason: Protocol Last Admin: 07/25/17 08:03 Dose: 50 mg Polyethylene Glycol (Miralax) 17 gm PO BID [facility] PRN Reason: Protocol Last Admin: 07/22/17 17:43 Dose: Not Given Prednisone (Prednisone Tab) 20 mg PO 0800 [facility] PRN Reason: Protocol Last Admin: 07/25/17 08:03 Dose: 20 mg Tramadol HCl (Ultram) 50 mg PO Q8H PRN PRN Reason: Pain, moderate (4-7) Last Admin: 07/25/17 11:05 Dose: 50 mg Warfarin Sodium (Coumadin) 4 mg PO 1800 [facility] PRN Reason: Protocol Last Admin: 07/25/17 17:23 Dose: 4 mg - Labs Labs: 07/21/17 07:00 07/22/17 06:30 PT 28.6 SECONDS (9.4-12.5) H 07/24/17 05:30 INR 2.44 (0.93-1.08) H 07/24/17 05:30 APTT 27.7 Seconds (25.1-36.5) 07/21/17 07:00
[2017-07-26] MEDS: Levothyroxine 112 MCG TAB PO SCH (05:54)
[2017-07-26 07:13] LABS: INR 2.87 (0.93-1.08); PROTHROMBIN TIME 33.7 SECONDS (9.4-12.5)
[2017-07-26 07:42] LABS: URIC ACID 6.7 mg/dL (2.5-6.2)
[2017-07-26] MEDS: Metoprolol Succinate 50 mg XL Tab PO SCH (08:01)
[2017-07-26] MEDS: Milrinone 20mg/100ml D5W 100 ML IV PRN (09:16)
[2017-07-26] MEDS: Digoxin 125 mcg (0.125 mg) Tab PO SCH (13:21)
--- NOTE | 2017-07-26 13:32 | CP.PCM.PN ---
<Jose Antonio Hoskins - Last Filed: 07/26/17 13:20> Subjective - Date & Time of Evaluation Date of Evaluation: 07/26/17 Time of Evaluation: 07:35 - Subjective Subjective: PGY1 Medicine Note for Dr. Man Patient seen and examined this morning at bedside. No acute events overnight. Patient states that she is feeling well with no leg pain. She was able to walk with PT yesterday. She has not had any diarrhea since her miralax was discontinued. She has no complaints at this time. Denies fevers, chills, nausea , vomiting, chest pain, shortness of breath, abdominal pain. Objective - Vital Signs/Intake and Output Vital Signs (last 24 hours): Temp Pulse Resp BP Pulse Ox 97.7 F 70 16 101/50 L 99 07/26/17 11:47 07/26/17 11:47 07/26/17 11:47 07/26/17 11:47 07/26/17 11:47 Intake and Output: 07/26/17 07/26/17 06:59 18:59 Intake Total 520 Balance 520 - Medications Medications: Current Medications Allopurinol (Zyloprim) 100 mg PO 0800,1800 [facility] PRN Reason: Protocol Last Admin: 07/26/17 08:01 Dose: 100 mg Colchicine (Colocrys) 0.6 mg PO BID [facility] PRN Reason: Protocol Last Admin: 07/22/17 17:42 Dose: 0.6 mg Digoxin (Digoxin) 0.125 mg PO Q48H [facility]AA PRN Reason: Protocol Last Admin: 07/24/17 13:03 Dose: 0.125 mg Famotidine (Pepcid) 20 mg PO HS [facility] PRN Reason: Protocol Last Admin: 07/25/17 21:38 Dose: 20 mg Furosemide (Lasix) 40 mg PO DAILY [facility] Last Admin: 07/26/17 09:20 Dose: 40 mg Furosemide (Lasix) 20 mg PO 1800 [facility] Milrinone Lactate/Dextrose (Primacor 20mg/100ml D5w) 100 mls @ 6.287 mls/hr IV .[id number] PRN; Protocol PRN Reason: TITRATE PER MD ORDER Last Admin: 07/26/17 09:16 Dose: 6.287 mls/hr Isosorbide Mononitrate (Imdur Er) 30 mg PO 0600 [facility] PRN Reason: Protocol Last Admin: 07/26/17 05:53 Dose: 30 mg Levothyroxine Sodium (Synthroid) 112 mcg PO 0600 [facility] PRN Reason: Protocol Last Admin: 07/26/17 05:54 Dose: 112 mcg Losartan Potassium (Cozaar) 50 mg PO DAILY [facility] Last Admin: 07/26/17 09:20 Dose: 50 mg Metoprolol Succinate (Toprol Xl) 50 mg PO 0800 [facility] PRN Reason: Protocol Last Admin: 07/26/17 08:01 Dose: 50 mg Polyethylene Glycol (Miralax) 17 gm PO BID [facility] PRN Reason: Protocol Last Admin: 07/22/17 17:43 Dose: Not Given Prednisone (Prednisone Tab) 20 mg PO 0800 [facility] PRN Reason: Protocol Last Admin: 07/26/17 08:01 Dose: 20 mg Tramadol HCl (Ultram) 50 mg PO Q8H PRN PRN Reason: Pain, moderate (4-7) Last Admin: 07/26/17 12:28 Dose: 50 mg Warfarin Sodium (Coumadin) 4 mg PO 1800 [facility] PRN Reason: Protocol Last Admin: 07/25/17 17:23 Dose: 4 mg - Labs Labs: 07/21/17 07:00 07/26/17 06:00 PT 33.7 SECONDS (9.4-12.5) H 07/26/17 06:30 INR 2.87 (0.93-1.08) H 07/26/17 06:30 APTT 27.7 Seconds (25.1-36.5) 07/21/17 07:00 - Constitutional Appears: Non-toxic, No Acute Distress - Head Exam Head Exam: ATRAUMATIC, NORMOCEPHALIC - Eye Exam Eye Exam: EOMI. absent: Scleral icterus - ENT Exam ENT Exam: Mucous Membranes Moist - Respiratory Exam Respiratory Exam: Clear to Ausculation Bilateral, NORMAL BREATHING PATTERN. absent: Accessory Muscle Use, Rales, Rhonchi, Wheezes, Respiratory Distress - Cardiovascular Exam Cardiovascular Exam: REGULAR RHYTHM, +S1, +S2 - GI/Abdominal Exam GI & Abdominal Exam: Soft, Normal Bowel Sounds. absent: Distended, Firm, Guarding, Rigid, Tenderness - Extremities Exam Extremities Exam: absent: Calf Tenderness, Pedal Edema - Neurological Exam Neurological Exam: Alert, Awake, Oriented x3 - Psychiatric Exam Psychiatric exam: Normal Affect, Normal Mood - Skin Skin Exam: Dry, Warm Assessment and Plan - Assessment and Plan (Free Text) Assessment: 86 year old female with PMH of Systolic CHF with EF of 8% and ICD placement on chronic IV milrinone therapy, A-fib on Coumadin, hypothyroidism, and gout admitted for lower extremity pain and difficulty ambulating 2/2 likely acute gout flare s/p intra-articular steroid injection, also found to have DAPHNE on CKD , which is improving. Pt transferred to TCU for rehab Plan: Left ankle and foot pain/swelling 2/2 gout flare - Allopurinol 100mg PO BID - Colchicine 0.6mg PO BID - Prednisone to 20 mg - Tramadol 50 mg PO q8h prn - Miralax - held - PT - F/u outpatient with Ortho DAPHNE on CKD - baseline Cr 1.3 - Lasix 40 mg PO daily - Aldactone - Losartan 50 mg PO daily - Avoid nephrotoxic agents like NSAIDs - Feurea 19.1%, prerenal - Dr Marcum consulted. appreciate recs Hyperkalemia - K+ 5.2 - continue to monitor supratheraputic INR - resolved - INR therapeutic today - 2.87 (Therapeutic for 3 days in a row. No need for daily INR check now, can be weekly) - pt taking coumadin at home, 6 mg and 3 mg on alternating days - discontinued - Switched to warfarin 4 mg PO daily history of CHF - at baseline per patient - Digoxin 0.125mg PO q48h - Dig level 0.9 - therapeutic - Imdur 30mg PO daily - Metoprolol 50mg PO daily - milirone drip - consulted heat reader Dr. Alcantara. appreciate recs. History of Atrial fibrillation - Rate controlled. home toprol - Warfarin 4 mg PO daily History of Hypothyroidism - Continue Synthroid 112mcg PO daily Prophylactic Care DVT - Warfarin 4 mg PO daily GI - Pepcid 20mg PO HS DISPO: Patient is to continue her rehab. She is currently approved for TCU until 07/27. [facility] attempting to set up [facility] for discharge. See E[facility] note for more detail Case discussed with Dr. Donovan Hoskins PGY1 <Marleny Man - Last Filed: 07/26/17 14:07> Objective - Vital Signs/Intake and Output Vital Signs (last 24 hours): Temp Pulse Resp BP Pulse Ox 97.7 F 70 16 101/50 L 99 07/26/17 11:47 07/26/17 11:47 07/26/17 11:47 07/26/17 11:47 07/26/17 11:47 Intake and Output: 07/26/17 07/26/17 06:59 18:59 Intake Total 520 Balance 520 - Medications Medications: Current Medications Allopurinol (Zyloprim) 100 mg PO 0800,1800 [facility] PRN Reason: Protocol Last Admin: 07/26/17 08:01 Dose: 100 mg Camphor/Menthol (Bengay) 0 gm TOP QID PRN PRN Reason: pain Colchicine (Colocrys) 0.6 mg PO BID [facility] PRN Reason: Protocol Last Admin: 07/22/17 17:42 Dose: 0.6 mg Digoxin (Digoxin) 0.125 mg PO Q48H [facility] PRN Reason: Protocol Last Admin: 07/26/17 13:21 Dose: 0.125 mg Famotidine (Pepcid) 20 mg PO HS [facility] PRN Reason: Protocol Last Admin: 07/25/17 21:38 Dose: 20 mg Furosemide (Lasix) 40 mg PO DAILY [facility] Last Admin: 07/26/17 09:20 Dose: 40 mg Furosemide (Lasix) 20 mg PO 1800 [facility] Milrinone Lactate/Dextrose (Primacor 20mg/100ml D5w) 100 mls @ 6.287 mls/hr IV .[id number] PRN; Protocol PRN Reason: TITRATE PER MD ORDER Last Admin: 07/26/17 09:16 Dose: 6.287 mls/hr Isosorbide Mononitrate (Imdur Er) 30 mg PO 0600 [facility] PRN Reason: Protocol Last Admin: 07/26/17 05:53 Dose: 30 mg Levothyroxine Sodium (Synthroid) 112 mcg PO 0600 [facility] PRN Reason: Protocol Last Admin: 07/26/17 05:54 Dose: 112 mcg Losartan Potassium (Cozaar) 50 mg PO DAILY [facility] Last Admin: 07/26/17 09:20 Dose: 50 mg Metoprolol Succinate (Toprol Xl) 50 mg PO 0800 [facility] PRN Reason: Protocol Last Admin: 07/26/17 08:01 Dose: 50 mg Polyethylene Glycol (Miralax) 17 gm PO BID [facility] PRN Reason: Protocol Last Admin: 07/22/17 17:43 Dose: Not Given Prednisone (Prednisone Tab) 20 mg PO 0800 [facility] PRN Reason: Protocol Last Admin: 07/26/17 08:01 Dose: 20 mg Tramadol HCl (Ultram) 50 mg PO Q8H PRN PRN Reason: Pain, moderate (4-7) Last Admin: 07/26/17 12:28 Dose: 50 mg Warfarin Sodium (Coumadin) 4 mg PO 1800 [facility] PRN Reason: Protocol Last Admin: 07/25/17 17:23 Dose: 4 mg - Labs Labs: 07/21/17 07:00 07/26/17 06:00 PT 33.7 SECONDS (9.4-12.5) H 07/26/17 06:30 INR 2.87 (0.93-1.08) H 07/26/17 06:30 APTT 27.7 Seconds (25.1-36.5) 07/21/17 07:00 Attending/Attestation - Attestation I have personally seen and examined this patient.: Yes I have fully participated in the care of the patient.: Yes I have reviewed all pertinent clinical information, including history, physical exam and plan: Yes Notes (Text): 07/26/17 14:02 86 year old female with past medical history of systolic CHF s/p ICD on chronic milrinone therapy, afib on coumadin, hypothyroidism and CKD who presented with lower extremity pain, weakness with difficulty ambulating, chronic dyspnea and acute on chronic renal failure. She is on lasix and milrinone drip. Cardiology is following the patient. Continue with coumadin as per INR. Acute on chronic renal failure has improved. Creatinine has been stable. Nephrology is following. She is on steroid taper, colchichine and allopurinol for acute gout flare ur. Continue with physical therapy while in TCU. Family is also at bedside and questions were answered. Marleny Man MD Hospitalist.
[2017-07-26] MEDS ORDERED: Menthol/Methyl Salicylate Ointment(1 oz) TOP PRN (13:59)
[2017-07-27] MEDS: Milrinone 20mg/100ml D5W 100 ML IV PRN ×2 (03:30→21:00)
[2017-07-27] MEDS: Levothyroxine 112 MCG TAB PO SCH (05:43)
--- NOTE | 2017-07-27 06:30 | CP.PCM.PN ---
Subjective - Date & Time of Evaluation Date of Evaluation: 07/26/17 Time of Evaluation: 12:00 - Subjective Subjective: Patient denies shortness of breath, urinated more overnight with pm dose of lasix; Objective - Vital Signs/Intake and Output Vital Signs (last 24 hours): Temp Pulse Resp BP Pulse Ox 98.1 F 70 18 115/60 99 07/26/17 17:55 07/27/17 03:30 07/26/17 17:55 07/27/17 03:30 07/26/17 11:47 Intake and Output: 07/26/17 07/27/17 18:59 06:59 Intake Total 520 100 Balance 520 100 - Medications Medications: Current Medications Allopurinol (Zyloprim) 100 mg PO 0800,1800 [facility] PRN Reason: Protocol Last Admin: 07/26/17 17:12 Dose: 100 mg Camphor/Menthol (Bengay) 0 gm TOP QID PRN PRN Reason: pain Colchicine (Colocrys) 0.6 mg PO BID [facility] PRN Reason: Protocol Last Admin: 07/22/17 17:42 Dose: 0.6 mg Digoxin (Digoxin) 0.125 mg PO Q48H [facility] PRN Reason: Protocol Last Admin: 07/26/17 13:21 Dose: 0.125 mg Famotidine (Pepcid) 20 mg PO HS [facility] PRN Reason: Protocol Last Admin: 07/26/17 21:20 Dose: 20 mg Furosemide (Lasix) 40 mg PO DAILY [facility] Last Admin: 07/26/17 09:20 Dose: 40 mg Furosemide (Lasix) 20 mg PO 1800 [facility] Last Admin: 07/26/17 17:12 Dose: Not Given Milrinone Lactate/Dextrose (Primacor 20mg/100ml D5w) 100 mls @ 6.287 mls/hr IV .[id number] PRN; Protocol PRN Reason: TITRATE PER MD ORDER Last Admin: 07/27/17 03:30 Dose: 6.287 mls/hr Isosorbide Mononitrate (Imdur Er) 30 mg PO 0600 [facility] PRN Reason: Protocol Last Admin: 07/27/17 05:43 Dose: 30 mg Levothyroxine Sodium (Synthroid) 112 mcg PO 0600 [facility] PRN Reason: Protocol Last Admin: 07/27/17 05:43 Dose: 112 mcg Losartan Potassium (Cozaar) 50 mg PO DAILY [facility] Last Admin: 07/26/17 09:20 Dose: 50 mg Metoprolol Succinate (Toprol Xl) 50 mg PO 0800 [facility] PRN Reason: Protocol Last Admin: 07/26/17 08:01 Dose: 50 mg Polyethylene Glycol (Miralax) 17 gm PO BID [facility] PRN Reason: Protocol Last Admin: 07/22/17 17:43 Dose: Not Given Prednisone (Prednisone Tab) 20 mg PO 0800 [facility] PRN Reason: Protocol Last Admin: 07/26/17 08:01 Dose: 20 mg Tramadol HCl (Ultram) 50 mg PO Q8H PRN PRN Reason: Pain, moderate (4-7) Last Admin: 07/26/17 12:28 Dose: 50 mg Warfarin Sodium (Coumadin) 4 mg PO 1800 [facility] PRN Reason: Protocol Last Admin: 07/25/17 17:23 Dose: 4 mg - Labs Labs: 07/21/17 07:00 07/26/17 06:00 PT 33.7 SECONDS (9.4-12.5) H 07/26/17 06:30 INR 2.87 (0.93-1.08) H 07/26/17 06:30 APTT 27.7 Seconds (25.1-36.5) 07/21/17 07:00 - Constitutional Appears: Non-toxic, No Acute Distress - Eye Exam Eye Exam: absent: Scleral icterus - ENT Exam ENT Exam: Mucous Membranes Moist - Respiratory Exam Respiratory Exam: Clear to Ausculation Bilateral. absent: Respiratory Distress - Cardiovascular Exam Cardiovascular Exam: RRR, Murmur - GI/Abdominal Exam GI & Abdominal Exam: Soft. absent: Distended, Tenderness - Extremities Exam Additional comments: mild lower leg edema; - Neurological Exam Neurological Exam: Alert, Awake - Psychiatric Exam Psychiatric exam: Normal Mood. absent: Agitated - Skin Skin Exam: Warm. absent: Cyanosis Assessment and Plan (1) CKD (chronic kidney disease), stage III Assessment & Plan: CKD IIIA, cardiorenal etiology, renal function stable lately; continue to optimize cardiac function and avoid nephrotoxic agents, including NSAIDS; Status: Chronic (2) DAPHNE (acute kidney injury) Status: Resolved (3) Congestive heart failure Assessment & Plan: With severe systolic dysfunction; standing weight decreased today to 154.7 lbs after restarting her pm dose of lasix; will continue decrease pm lasix to 20 mg to avoid over-diuresis; continue lasix 40 mg in am; continue B-emilia and ARB; Status: Chronic (4) Gout Status: Chronic (5) Hyperkalemia Assessment & Plan: Mild, should continue with losartan for cardiac optimization; changing diet to low K; Status: Acute
[2017-07-27 06:56] LABS: INR 2.82 (0.93-1.08); PROTHROMBIN TIME 33.1 SECONDS (9.4-12.5)
[2017-07-27] MEDS: Metoprolol Succinate 50 mg XL Tab PO SCH (07:39)
--- NOTE | 2017-07-27 14:23 | PN ---
DATE: 07/27/2017 SUBJECTIVE: The patient is seen lying in bed on Transitional Care Unit. She feels comfortable. Her knee pain continues to improve. She denies any dyspnea and has no recent edema. MEDICATIONS: Her current medications include IV milrinone, Cozaar 50 mg daily, digoxin 0.125 mg every other day, Imdur 30 mg daily, Lasix 40 mg daily, Pepcid 20 mg daily, prednisone 20 mg daily, Synthroid 112 mcg daily, Toprol XL 50 mg daily, Ultram, and Zyloprim. PHYSICAL EXAMINATION GENERAL: She is a very elderly woman who appears comfortable at rest. VITAL SIGNS: Her blood pressure is 120/76 with a pulse of 70, respirations are 16. She is afebrile. HEENT: No JVD. CHEST: Few scattered rhonchi. HEART: PMI displaced laterally with soft tones noted and systolic murmur noted at the apex. ABDOMEN: Soft and nontender with normoactive bowel sounds. EXTREMITIES: No edema. DIAGNOSTIC DATA: INR is 2.82. IMPRESSION: 1. Chronic congestive heart failure, class III, appears compensated at present. 2. Recent acute gout, clinically improved. 3. Severe left ventricular dysfunction. 4. Chronic renal insufficiency. 5. Status post implantable cardioverter-defibrillator implant. 6. Chronic atrial fibrillation. RECOMMENDATIONS: Current medications should be continued for now. Hopefully, discharge home soon can be arranged. Continue sodium restriction was advised. We will be happy to follow along as needed. Dino Thompson MD
--- NOTE | 2017-07-27 19:38 | CP.PCM.PN ---
Subjective - Date & Time of Evaluation Date of Evaluation: 07/27/17 Time of Evaluation: 12:00 - Subjective Subjective: Patient reports feeling well; ambulating without additional dyspnea; urinating well; Objective - Vital Signs/Intake and Output Vital Signs (last 24 hours): Temp Pulse Resp BP Pulse Ox 98.4 F 97 H 20 109/63 100 07/27/17 16:00 07/27/17 16:00 07/27/17 16:00 07/27/17 17:47 07/27/17 10:00 - Medications Medications: Current Medications Allopurinol (Zyloprim) 100 mg PO 0800,1800 [facility] PRN Reason: Protocol Last Admin: 07/27/17 17:47 Dose: 100 mg Camphor/Menthol (Bengay) 0 gm TOP QID PRN PRN Reason: pain Colchicine (Colocrys) 0.6 mg PO BID [facility] PRN Reason: Protocol Last Admin: 07/22/17 17:42 Dose: 0.6 mg Digoxin (Digoxin) 0.125 mg PO Q48H [facility] PRN Reason: Protocol Last Admin: 07/26/17 13:21 Dose: 0.125 mg Famotidine (Pepcid) 20 mg PO HS [facility] PRN Reason: Protocol Last Admin: 07/26/17 21:20 Dose: 20 mg Furosemide (Lasix) 40 mg PO DAILY [facility] Last Admin: 07/27/17 10:36 Dose: 40 mg Furosemide (Lasix) 20 mg PO 1800 [facility] Last Admin: 07/27/17 17:47 Dose: 20 mg Milrinone Lactate/Dextrose (Primacor 20mg/100ml D5w) 100 mls @ 6.287 mls/hr IV .[id number] PRN; Protocol PRN Reason: TITRATE PER MD ORDER Last Admin: 07/27/17 03:30 Dose: 6.287 mls/hr Isosorbide Mononitrate (Imdur Er) 30 mg PO 0600 [facility] PRN Reason: Protocol Last Admin: 07/27/17 05:43 Dose: 30 mg Levothyroxine Sodium (Synthroid) 112 mcg PO 0600 [facility] PRN Reason: Protocol Last Admin: 07/27/17 05:43 Dose: 112 mcg Losartan Potassium (Cozaar) 50 mg PO DAILY [facility] Last Admin: 07/27/17 10:35 Dose: 50 mg Metoprolol Succinate (Toprol Xl) 50 mg PO 0800 [facility] PRN Reason: Protocol Last Admin: 07/27/17 07:39 Dose: 50 mg Polyethylene Glycol (Miralax) 17 gm PO BID [facility] PRN Reason: Protocol Last Admin: 07/22/17 17:43 Dose: Not Given Prednisone (Prednisone Tab) 10 mg PO 0800 [facility] PRN Reason: Protocol Tramadol HCl (Ultram) 50 mg PO Q8H PRN PRN Reason: Pain, moderate (4-7) Last Admin: 07/26/17 12:28 Dose: 50 mg Warfarin Sodium (Coumadin) 4 mg PO 1800 [facility] PRN Reason: Protocol Last Admin: 07/27/17 18:36 Dose: Not Given - Labs Labs: 07/21/17 07:00 07/26/17 06:00 PT 33.1 SECONDS (9.4-12.5) H 07/27/17 06:35 INR 2.82 (0.93-1.08) H 07/27/17 06:35 APTT 27.7 Seconds (25.1-36.5) 07/21/17 07:00 - Constitutional Appears: Non-toxic, No Acute Distress - Eye Exam Eye Exam: absent: Scleral icterus - ENT Exam ENT Exam: Mucous Membranes Moist - Respiratory Exam Respiratory Exam: absent: Respiratory Distress Additional comments: mild fine basal rales - Cardiovascular Exam Cardiovascular Exam: RRR, +S1, +S2 - GI/Abdominal Exam GI & Abdominal Exam: Soft. absent: Distended, Tenderness - Extremities Exam Additional comments: mild lower leg edema; - Neurological Exam Neurological Exam: Alert, Awake - Psychiatric Exam Psychiatric exam: Normal Mood. absent: Agitated - Skin Skin Exam: Warm. absent: Cyanosis Assessment and Plan (1) CKD (chronic kidney disease), stage III Assessment & Plan: Cardiorenal etiology, continue to optimize cardiac status while avoiding over- diuresis; Status: Chronic (2) Congestive heart failure Assessment & Plan: With severe systolic dysfunction; euvolemic lately by exam/symptoms; standing weight today ~155 lbs; continue current PO lasix regimen (40 mg in am, 20 mg in pm); if weights increase further, should increase pm lasix dose; -obtain daily standing weights; Status: Chronic (3) Gout Status: Chronic (4) Hyperkalemia Assessment & Plan: Very mild; diet changed to low K; repeat chem panel in a few days; Status: Acute
[2017-07-28] MEDS: Levothyroxine 112 MCG TAB PO SCH (05:25)
--- NOTE | 2017-07-28 07:32 | CP.PCM.PN ---
Subjective - Date & Time of Evaluation Date of Evaluation: 07/28/17 Time of Evaluation: 07:00 - Subjective Subjective: Stable in TCU. No CP or SOB. She feels better. D/C planning for tomorrow underway. V/S noted. P= 60 - 70 PE: Lungs: clear Cor.: S1S2 Abd.: soft Ext.: no edema Neuro.: alert Labs 07/27 noted: INR = 2.82, 07/26 K+= 5.2, U.A.= 6.7 Joint fluid + for uric acid crystals Objective - Vital Signs/Intake and Output Vital Signs (last 24 hours): Temp Pulse Resp BP Pulse Ox 98.4 F 97 H 20 109/63 100 07/27/17 16:00 07/27/17 16:00 07/27/17 16:00 07/27/17 17:47 07/27/17 10:00 Intake and Output: 07/28/17 07/28/17 06:59 18:59 Intake Total 100 Balance 100 - Medications Medications: Current Medications Allopurinol (Zyloprim) 100 mg PO 0800,1800 [facility] PRN Reason: Protocol Last Admin: 07/27/17 17:47 Dose: 100 mg Camphor/Menthol (Bengay) 0 gm TOP QID PRN PRN Reason: pain Colchicine (Colocrys) 0.6 mg PO BID [facility] PRN Reason: Protocol Last Admin: 07/22/17 17:42 Dose: 0.6 mg Digoxin (Digoxin) 0.125 mg PO Q48H [facility] PRN Reason: Protocol Last Admin: 07/26/17 13:21 Dose: 0.125 mg Famotidine (Pepcid) 20 mg PO HS [facility] PRN Reason: Protocol Last Admin: 07/27/17 21:08 Dose: 20 mg Furosemide (Lasix) 40 mg PO DAILY [facility] Last Admin: 07/27/17 10:36 Dose: 40 mg Furosemide (Lasix) 20 mg PO 1800 [facility] Last Admin: 07/27/17 17:47 Dose: 20 mg Milrinone Lactate/Dextrose (Primacor 20mg/100ml D5w) 100 mls @ 6.287 mls/hr IV .[id number] PRN; Protocol PRN Reason: TITRATE PER MD ORDER Last Admin: 07/27/17 21:00 Dose: 6.287 mls/hr Isosorbide Mononitrate (Imdur Er) 30 mg PO 0600 [facility] PRN Reason: Protocol Last Admin: 07/28/17 05:24 Dose: 30 mg Levothyroxine Sodium (Synthroid) 112 mcg PO 0600 [facility] PRN Reason: Protocol Last Admin: 07/28/17 05:25 Dose: 112 mcg Losartan Potassium (Cozaar) 50 mg PO DAILY [facility] Last Admin: 07/27/17 10:35 Dose: 50 mg Metoprolol Succinate (Toprol Xl) 50 mg PO 0800 [facility] PRN Reason: Protocol Last Admin: 07/27/17 07:39 Dose: 50 mg Polyethylene Glycol (Miralax) 17 gm PO BID [facility] PRN Reason: Protocol Last Admin: 07/22/17 17:43 Dose: Not Given Prednisone (Prednisone Tab) 10 mg PO 0800 [facility] PRN Reason: Protocol Tramadol HCl (Ultram) 50 mg PO Q8H PRN PRN Reason: Pain, moderate (4-7) Last Admin: 07/26/17 12:28 Dose: 50 mg Warfarin Sodium (Coumadin) 4 mg PO 1800 [facility] PRN Reason: Protocol Last Admin: 07/27/17 18:36 Dose: Not Given - Labs Labs: 07/21/17 07:00 07/26/17 06:00 PT 33.1 SECONDS (9.4-12.5) H 07/27/17 06:35 INR 2.82 (0.93-1.08) H 07/27/17 06:35 APTT 27.7 Seconds (25.1-36.5) 07/21/17 07:00 Assessment and Plan - Assessment and Plan (Free Text) Assessment: IVY CHF-IV on home milrinone infusion CCM Severe MR,TR and PH on echo Acute gout CKD Chronic AF on warfarin ICD CVA Hypothyroidism GB and Back surgery Former Smoker Plan: Continue cardiac meds and milrinone infusion RX for acute gout. Taper steroids as per medical team Check BMP and INR in AM, prior to d/c tomorrow PT/Rehab efforts as tolerated. Will follow.
[2017-07-28] MEDS: Metoprolol Succinate 50 mg XL Tab PO SCH (08:19)
[2017-07-28 09:59] LABS: CALCIUM 9.1 mg/dL (8.4-10.5); INR 2.17 (0.93-1.08); PROTHROMBIN TIME 25.3 SECONDS (9.4-12.5)
[2017-07-28] MEDS ORDERED: Digoxin 125 mcg (0.125 mg) Tab PO SCH (12:45)
[2017-07-28] MEDS: Digoxin 125 mcg (0.125 mg) Tab PO SCH (13:35)
--- NOTE | 2017-07-28 14:01 | CP.PCM.PN ---
<Jose Antonio Hoskins - Last Filed: 07/28/17 13:57> Subjective - Date & Time of Evaluation Date of Evaluation: 07/28/17 Time of Evaluation: 09:15 - Subjective Subjective: PGY1 Medicine Note for Dr. Man Patient seen and examined this morning at bedside. No acute events overnight. Patient is feeling well with no knee or leg pain. She is tolerating her diet. Patient has no complaints at this time. Denies fevers, chills, nausea, vomiting , diarrhea, constipation, chest pain, shortness of breath, abdominal pain. Objective - Vital Signs/Intake and Output Vital Signs (last 24 hours): Temp Pulse Resp BP Pulse Ox 98 F 69 20 130/59 L 94 L 07/28/17 10:00 07/28/17 10:00 07/28/17 10:00 07/28/17 10:02 07/28/17 10:00 Intake and Output: 07/28/17 07/28/17 06:59 18:59 Intake Total 100 420 Balance 100 420 - Medications Medications: Current Medications Allopurinol (Zyloprim) 100 mg PO 0800,1800 [facility] PRN Reason: Protocol Last Admin: 07/28/17 08:20 Dose: 100 mg Camphor/Menthol (Bengay) 0 gm TOP QID PRN PRN Reason: pain Colchicine (Colocrys) 0.6 mg PO BID [facility]AA PRN Reason: Protocol Last Admin: 07/22/17 17:42 Dose: 0.6 mg Digoxin (Digoxin) 0.125 mg PO Q48H [facility]AA PRN Reason: Protocol Last Admin: 07/28/17 13:35 Dose: 0.125 mg Famotidine (Pepcid) 20 mg PO HS [facility]AA PRN Reason: Protocol Last Admin: 07/27/17 21:08 Dose: 20 mg Furosemide (Lasix) 40 mg PO DAILY [facility] Last Admin: 07/28/17 10:02 Dose: 40 mg Furosemide (Lasix) 20 mg PO 1800 [facility] Last Admin: 07/27/17 17:47 Dose: 20 mg Milrinone Lactate/Dextrose (Primacor 20mg/100ml D5w) 100 mls @ 6.287 mls/hr IV .[id number] PRN; Protocol PRN Reason: TITRATE PER MD ORDER Last Admin: 07/27/17 21:00 Dose: 6.287 mls/hr Isosorbide Mononitrate (Imdur Er) 30 mg PO 0600 [facility] PRN Reason: Protocol Last Admin: 07/28/17 05:24 Dose: 30 mg Levothyroxine Sodium (Synthroid) 112 mcg PO 0600 [facility] PRN Reason: Protocol Losartan Potassium (Cozaar) 50 mg PO DAILY [facility] Last Admin: 07/28/17 10:00 Dose: 50 mg Metoprolol Succinate (Toprol Xl) 50 mg PO 0800 [facility] PRN Reason: Protocol Last Admin: 07/28/17 08:19 Dose: 50 mg Polyethylene Glycol (Miralax) 17 gm PO BID [facility] PRN Reason: Protocol Last Admin: 07/22/17 17:43 Dose: Not Given Prednisone (Prednisone Tab) 10 mg PO 0800 [facility] PRN Reason: Protocol Last Admin: 07/28/17 08:19 Dose: 10 mg Tramadol HCl (Ultram) 50 mg PO Q8H PRN PRN Reason: Pain, moderate (4-7) Last Admin: 07/26/17 12:28 Dose: 50 mg Warfarin Sodium (Coumadin) 4 mg PO 1800 [facility] PRN Reason: Protocol Last Admin: 07/27/17 18:36 Dose: Not Given - Labs Labs: 07/21/17 07:00 07/28/17 09:40 PT 25.3 SECONDS (9.4-12.5) H 07/28/17 09:40 INR 2.17 (0.93-1.08) H 07/28/17 09:40 APTT 27.7 Seconds (25.1-36.5) 07/21/17 07:00 - Constitutional Appears: Non-toxic, No Acute Distress - Head Exam Head Exam: ATRAUMATIC, NORMOCEPHALIC - Eye Exam Eye Exam: Normal appearance - ENT Exam ENT Exam: Mucous Membranes Moist - Respiratory Exam Respiratory Exam: Clear to Ausculation Bilateral, NORMAL BREATHING PATTERN. absent: Accessory Muscle Use, Rales, Rhonchi, Wheezes, Respiratory Distress - Cardiovascular Exam Cardiovascular Exam: REGULAR RHYTHM, +S1, +S2 - GI/Abdominal Exam GI & Abdominal Exam: Soft, Normal Bowel Sounds. absent: Distended, Firm, Guarding, Rigid, Tenderness - Extremities Exam Extremities Exam: Normal Inspection. absent: Calf Tenderness, Pedal Edema, Tenderness - Neurological Exam Neurological Exam: Alert, Awake, CN II-XII Intact, Oriented x3 - Psychiatric Exam Psychiatric exam: Normal Affect, Normal Mood - Skin Skin Exam: Dry, Warm Assessment and Plan - Assessment and Plan (Free Text) Assessment: 86 year old female with PMH of Systolic CHF with EF of 8% and ICD placement on chronic IV milrinone therapy, A-fib on Coumadin, hypothyroidism, and gout admitted for lower extremity pain and difficulty ambulating 2/2 likely acute gout flare s/p intra-articular steroid injection, also found to have DAPHNE on CKD , which is improving. Pt transferred to TCU for rehab Plan: Left ankle and foot pain/swelling 2/2 gout flare - Allopurinol 100mg PO BID - Colchicine 0.6mg PO BID - on hold - Prednisone down to 10 mg daily - continue taper - Tramadol 50 mg PO q8h prn - PT - F/u outpatient with Ortho DAPHNE on CKD - resolved - baseline Cr 1.3, today 1.4 - Lasix 40 mg PO in am - Lasix 20 mg PO in pm - Losartan 50 mg PO daily - Avoid nephrotoxic agents like NSAIDs - Feurea 19.1%, prerenal - Dr Marcum consulted. appreciate recs Hyperkalemia - K+ 4.3 today - continue to monitor supratheraputic INR - resolved - INR therapeutic today - 2.17 - pt taking coumadin at home, 6 mg and 3 mg on alternating days - discontinued - Switched to warfarin 4 mg PO daily held dose yesterday, can resume today history of CHF - at baseline per patient - Digoxin 0.125mg PO q48h - Dig level 0.9 - therapeutic - Imdur 30mg PO daily - Metoprolol 50mg PO daily - ivone moreira - consulted hand therapist Dr. Alcantara. appreciate recs. History of Atrial fibrillation - Rate controlled. home toprol - Warfarin 4 mg PO daily - held dose yesterday, can resume today History of Hypothyroidism - Continue Synthroid 112mcg PO daily Prophylactic Care DVT - Warfarin 4 mg PO daily GI - Pepcid 20mg PO HS DISPO: Patient is scheduled to be discharged home with services tomorrow. Script for Ivone Moreira is in patient's chart. Case discussed with Dr. Donovan Brady Aidee PGY1 <Donovan,Anwar A - Last Filed: 07/28/17 14:47> Objective - Vital Signs/Intake and Output Vital Signs (last 24 hours): Temp Pulse Resp BP Pulse Ox 98 F 69 20 130/59 L 94 L 07/28/17 10:00 07/28/17 10:00 07/28/17 10:00 07/28/17 10:02 07/28/17 10:00 Intake and Output: 07/28/17 07/28/17 06:59 18:59 Intake Total 100 520 Balance 100 520 - Medications Medications: Current Medications Allopurinol (Zyloprim) 100 mg PO 0800,1800 [facility] PRN Reason: Protocol Last Admin: 07/28/17 08:20 Dose: 100 mg Camphor/Menthol (Bengay) 0 gm TOP QID PRN PRN Reason: pain Colchicine (Colocrys) 0.6 mg PO BID [facility] PRN Reason: Protocol Last Admin: 07/22/17 17:42 Dose: 0.6 mg Digoxin (Digoxin) 0.125 mg PO Q48H [facility] PRN Reason: Protocol Last Admin: 07/28/17 13:35 Dose: 0.125 mg Famotidine (Pepcid) 20 mg PO HS [facility] PRN Reason: Protocol Last Admin: 07/27/17 21:08 Dose: 20 mg Furosemide (Lasix) 40 mg PO DAILY [facility] Last Admin: 07/28/17 10:02 Dose: 40 mg Furosemide (Lasix) 20 mg PO 1800 [facility] Last Admin: 07/27/17 17:47 Dose: 20 mg Milrinone Lactate/Dextrose (Primacor 20mg/100ml D5w) 100 mls @ 6.287 mls/hr IV .[id number] PRN; Protocol PRN Reason: TITRATE PER MD ORDER Last Admin: 07/28/17 14:06 Dose: 6.287 mls/hr Isosorbide Mononitrate (Imdur Er) 30 mg PO 0600 [facility] PRN Reason: Protocol Last Admin: 07/28/17 05:24 Dose: 30 mg Levothyroxine Sodium (Synthroid) 112 mcg PO 0600 [facility] PRN Reason: Protocol Losartan Potassium (Cozaar) 50 mg PO DAILY [facility] Last Admin: 07/28/17 10:00 Dose: 50 mg Metoprolol Succinate (Toprol Xl) 50 mg PO 0800 [facility] PRN Reason: Protocol Last Admin: 07/28/17 08:19 Dose: 50 mg Polyethylene Glycol (Miralax) 17 gm PO BID [facility] PRN Reason: Protocol Last Admin: 07/22/17 17:43 Dose: Not Given Prednisone (Prednisone Tab) 10 mg PO 0800 [facility] PRN Reason: Protocol Last Admin: 07/28/17 08:19 Dose: 10 mg Tramadol HCl (Ultram) 50 mg PO Q8H PRN PRN Reason: Pain, moderate (4-7) Last Admin: 07/26/17 12:28 Dose: 50 mg Warfarin Sodium (Coumadin) 4 mg PO 1800 [facility] PRN Reason: Protocol Last Admin: 07/27/17 18:36 Dose: Not Given - Labs Labs: 07/21/17 07:00 07/28/17 09:40 PT 25.3 SECONDS (9.4-12.5) H 07/28/17 09:40 INR 2.17 (0.93-1.08) H 07/28/17 09:40 APTT 27.7 Seconds (25.1-36.5) 07/21/17 07:00 Attending/Attestation - Attestation I have personally seen and examined this patient.: Yes I have fully participated in the care of the patient.: Yes I have reviewed all pertinent clinical information, including history, physical exam and plan: Yes Notes (Text): 07/28/17 14:46 86 year old female with past medical history of systolic CHF s/p ICD on chronic milrinone therapy, afib on coumadin, hypothyroidism and CKD who presented with lower extremity pain, weakness with difficulty ambulating, chronic dyspnea and acute on chronic renal failure. She is on lasix and milrinone drip. Cardiology is following the patient. INR today is 2.17. Can resume coumadin today. Acute on chronic renal failure has improved. Creatinine has been stable. Nephrology is following. She is on steroid taper, colchichine and allopurinol for acute gout flare ur. Continue with physical therapy while in TCU. Family is also at bedside and questions were answered. D/c planning tomorrow home with home services. Marleny Man MD Hospitalist.
[2017-07-28] MEDS: Milrinone 20mg/100ml D5W 100 ML IV PRN (14:06)
--- NOTE | 2017-07-28 18:13 | CP.PCM.PN ---
Objective - Vital Signs/Intake and Output Vital Signs (last 24 hours): Temp Pulse Resp BP Pulse Ox 97 F L 60 20 121/57 L 99 07/28/17 17:36 07/28/17 17:36 07/28/17 17:36 07/28/17 17:40 07/28/17 17:36 Intake and Output: 07/28/17 07/28/17 06:59 18:59 Intake Total 100 520 Balance 100 520 - Medications Medications: Current Medications Allopurinol (Zyloprim) 100 mg PO 0800,1800 [facility] PRN Reason: Protocol Last Admin: 07/28/17 17:40 Dose: 100 mg Camphor/Menthol (Bengay) 0 gm TOP QID PRN PRN Reason: pain Colchicine (Colocrys) 0.6 mg PO BID [facility] PRN Reason: Protocol Last Admin: 07/22/17 17:42 Dose: 0.6 mg Digoxin (Digoxin) 0.125 mg PO Q48H [facility] PRN Reason: Protocol Last Admin: 07/28/17 13:35 Dose: 0.125 mg Famotidine (Pepcid) 20 mg PO HS [facility] PRN Reason: Protocol Last Admin: 07/27/17 21:08 Dose: 20 mg Furosemide (Lasix) 40 mg PO DAILY [facility] Last Admin: 07/28/17 10:02 Dose: 40 mg Furosemide (Lasix) 20 mg PO 1800 [facility] Last Admin: 07/28/17 17:40 Dose: 20 mg Milrinone Lactate/Dextrose (Primacor 20mg/100ml D5w) 100 mls @ 6.287 mls/hr IV .[id number] PRN; Protocol PRN Reason: TITRATE PER MD ORDER Last Admin: 07/28/17 14:06 Dose: 6.287 mls/hr Isosorbide Mononitrate (Imdur Er) 30 mg PO 0600 [facility] PRN Reason: Protocol Last Admin: 07/28/17 05:24 Dose: 30 mg Levothyroxine Sodium (Synthroid) 112 mcg PO 0600 [facility] PRN Reason: Protocol Losartan Potassium (Cozaar) 50 mg PO DAILY [facility] Last Admin: 07/28/17 10:00 Dose: 50 mg Metoprolol Succinate (Toprol Xl) 50 mg PO 0800 [facility] PRN Reason: Protocol Last Admin: 07/28/17 08:19 Dose: 50 mg Polyethylene Glycol (Miralax) 17 gm PO BID [facility] PRN Reason: Protocol Last Admin: 07/22/17 17:43 Dose: Not Given Prednisone (Prednisone Tab) 10 mg PO 0800 [facility] PRN Reason: Protocol Last Admin: 07/28/17 08:19 Dose: 10 mg Tramadol HCl (Ultram) 50 mg PO Q8H PRN PRN Reason: Pain, moderate (4-7) Last Admin: 07/28/17 15:37 Dose: 50 mg Warfarin Sodium (Coumadin) 4 mg PO 1800 [facility] PRN Reason: Protocol Last Admin: 07/28/17 17:38 Dose: 4 mg - Labs Labs: 07/21/17 07:00 07/28/17 09:40 PT 25.3 SECONDS (9.4-12.5) H 07/28/17 09:40 INR 2.17 (0.93-1.08) H 07/28/17 09:40 APTT 27.7 Seconds (25.1-36.5) 07/21/17 07:00 Assessment and Plan (1) CKD (chronic kidney disease), stage III Status: Chronic (2) Congestive heart failure Status: Chronic (3) Gout Status: Chronic (4) Hyperkalemia Status: Acute
[2017-07-29] MEDS: Levothyroxine 112 MCG TAB PO SCH (05:25)
[2017-07-29] MEDS: Milrinone 20mg/100ml D5W 100 ML IV PRN (05:25)
[2017-07-29 06:59] LABS: CALCIUM 8.8 mg/dL (8.4-10.5)
--- NOTE | 2017-07-29 07:25 | CP.PCM.PN ---
Subjective - Date & Time of Evaluation Date of Evaluation: 07/29/17 Time of Evaluation: 07:00 - Subjective Subjective: Stable in TCU. No CP or SOB. She feels better. D/C planning for today underway. V/S noted. P= 60 - 70 PE: Lungs: clear Cor.: S1S2 Abd.: soft Ext.: no edema Neuro.: alert Labs noted: Cr.= 1.3, K+= 4.5 INR 07/28=2.17 Joint fluid + for uric acid crystals Objective - Vital Signs/Intake and Output Vital Signs (last 24 hours): Temp Pulse Resp BP Pulse Ox 97 F L 60 20 121/57 L 99 07/28/17 17:36 07/28/17 17:36 07/28/17 17:36 07/28/17 17:40 07/28/17 17:36 Intake and Output: 07/29/17 07/29/17 06:59 18:59 Intake Total 100 Balance 100 - Medications Medications: Current Medications Allopurinol (Zyloprim) 100 mg PO 0800,1800 [facility] PRN Reason: Protocol Last Admin: 07/28/17 17:40 Dose: 100 mg Camphor/Menthol (Bengay) 0 gm TOP QID PRN PRN Reason: pain Colchicine (Colocrys) 0.6 mg PO BID [facility] PRN Reason: Protocol Last Admin: 07/22/17 17:42 Dose: 0.6 mg Digoxin (Digoxin) 0.125 mg PO Q48H [facility] PRN Reason: Protocol Last Admin: 07/28/17 13:35 Dose: 0.125 mg Famotidine (Pepcid) 20 mg PO HS [facility] PRN Reason: Protocol Last Admin: 07/28/17 21:16 Dose: 20 mg Furosemide (Lasix) 40 mg PO DAILY [facility] Last Admin: 07/28/17 10:02 Dose: 40 mg Furosemide (Lasix) 20 mg PO 1800 [facility] Last Admin: 07/28/17 17:40 Dose: 20 mg Milrinone Lactate/Dextrose (Primacor 20mg/100ml D5w) 100 mls @ 6.287 mls/hr IV .[id number] PRN; Protocol PRN Reason: TITRATE PER MD ORDER Last Admin: 07/29/17 05:25 Dose: 6.287 mls/hr Isosorbide Mononitrate (Imdur Er) 30 mg PO 0600 [facility] PRN Reason: Protocol Last Admin: 07/29/17 05:25 Dose: 30 mg Levothyroxine Sodium (Synthroid) 112 mcg PO 0600 [facility] PRN Reason: Protocol Last Admin: 07/29/17 05:25 Dose: 112 mcg Losartan Potassium (Cozaar) 50 mg PO DAILY [facility] Last Admin: 07/28/17 10:00 Dose: 50 mg Metoprolol Succinate (Toprol Xl) 50 mg PO 0800 [facility] PRN Reason: Protocol Last Admin: 07/28/17 08:19 Dose: 50 mg Polyethylene Glycol (Miralax) 17 gm PO BID [facility] PRN Reason: Protocol Last Admin: 07/22/17 17:43 Dose: Not Given Prednisone (Prednisone Tab) 10 mg PO 0800 [facility] PRN Reason: Protocol Last Admin: 07/28/17 08:19 Dose: 10 mg Tramadol HCl (Ultram) 50 mg PO Q8H PRN PRN Reason: Pain, moderate (4-7) Last Admin: 07/28/17 15:37 Dose: 50 mg Warfarin Sodium (Coumadin) 4 mg PO 1800 [facility] PRN Reason: Protocol Last Admin: 07/28/17 17:38 Dose: 4 mg - Labs Labs: 07/21/17 07:00 07/29/17 06:20 PT 25.3 SECONDS (9.4-12.5) H 07/28/17 09:40 INR 2.17 (0.93-1.08) H 07/28/17 09:40 APTT 27.7 Seconds (25.1-36.5) 07/21/17 07:00 Assessment and Plan - Assessment and Plan (Free Text) Assessment: IVY CHF-IV on home milrinone infusion CCM Severe MR,TR and PH on echo Acute gout CKD Chronic AF on warfarin ICD CVA Hypothyroidism GB and Back surgery Former Smoker Plan: Continue cardiac meds and milrinone infusion Taper steroids as per medical team
[2017-07-29 07:27] LABS: INR 1.83 (0.93-1.08); PROTHROMBIN TIME 21.3 SECONDS (9.4-12.5)
[2017-07-29] MEDS: Metoprolol Succinate 50 mg XL Tab PO SCH (08:01)
--- NOTE | 2017-07-29 20:00 | CP.PCM.PN ---
Objective - Vital Signs/Intake and Output Vital Signs (last 24 hours): Temp Pulse Resp BP Pulse Ox 98.7 F 69 18 115/57 L 95 07/29/17 17:43 07/29/17 17:43 07/29/17 17:43 07/29/17 17:54 07/29/17 14:30 Intake and Output: 07/29/17 07/30/17 18:59 06:59 Intake Total 420 Balance 420 - Medications Medications: Current Medications Allopurinol (Zyloprim) 100 mg PO 0800,1800 [facility] PRN Reason: Protocol Last Admin: 07/29/17 17:55 Dose: 100 mg Camphor/Menthol (Bengay) 0 gm TOP QID PRN PRN Reason: pain Colchicine (Colocrys) 0.6 mg PO BID [facility] PRN Reason: Protocol Last Admin: 07/22/17 17:42 Dose: 0.6 mg Digoxin (Digoxin) 0.125 mg PO Q48H [facility] PRN Reason: Protocol Last Admin: 07/28/17 13:35 Dose: 0.125 mg Famotidine (Pepcid) 20 mg PO HS [facility] PRN Reason: Protocol Last Admin: 07/28/17 21:16 Dose: 20 mg Furosemide (Lasix) [address] [facility] Last Admin: 07/29/17 10:18 Dose: 40 mg Furosemide (Lasix) [address] [facility] Last Admin: 07/29/17 17:54 Dose: 20 mg Milrinone Lactate/Dextrose (Primacor 20mg/100ml D5w) 100 mls @ 6.287 mls/hr IV .[id number] PRN; Protocol PRN Reason: TITRATE PER MD ORDER Last Admin: 07/29/17 05:25 Dose: 6.287 mls/hr Isosorbide Mononitrate (Imdur Er) 30 mg PO 0600 [facility] PRN Reason: Protocol Last Admin: 07/29/17 05:25 Dose: 30 mg Levothyroxine Sodium (Synthroid) [address] [facility] PRN Reason: Protocol Last Admin: 07/29/17 05:25 Dose: 112 mcg Losartan Potassium (Cozaar) [address] [facility] Last Admin: 07/29/17 10:18 Dose: 50 mg Metoprolol Succinate (Toprol Xl) 50 mg PO 0800 [facility] PRN Reason: Protocol Last Admin: 07/29/17 08:01 Dose: 50 mg Polyethylene Glycol (Miralax) 17 gm PO BID [facility] PRN Reason: Protocol Last Admin: 07/22/17 17:43 Dose: Not Given Prednisone (Prednisone Tab) 10 mg PO 0800 [facility] PRN Reason: Protocol Last Admin: 07/29/17 08:00 Dose: 10 mg Tramadol HCl (Ultram) 50 mg PO Q8H PRN PRN Reason: Pain, moderate (4-7) Last Admin: 07/28/17 15:37 Dose: 50 mg Warfarin Sodium (Coumadin) 4 mg PO 1800 [facility] PRN Reason: Protocol Last Admin: 07/29/17 17:53 Dose: 4 mg - Labs Labs: 07/21/17 07:00 07/29/17 06:20 PT 21.3 SECONDS (9.4-12.5) H 07/29/17 06:50 INR 1.83 (0.93-1.08) H 07/29/17 06:50 APTT 27.7 Seconds (25.1-36.5) 07/21/17 07:00 Assessment and Plan (1) CKD (chronic kidney disease), stage III Status: Chronic (2) Congestive heart failure Status: Chronic (3) Gout Status: Chronic (4) Hyperkalemia Status: Acute
[2017-07-30] MEDS: Milrinone 20mg/100ml D5W 100 ML IV PRN ×2 (00:56→17:10)
[2017-07-30] MEDS: Levothyroxine 112 MCG TAB PO SCH (05:44)
[2017-07-30 06:40] LABS: INR 1.86 (0.93-1.08); PROTHROMBIN TIME 21.7 SECONDS (9.4-12.5)
[2017-07-30] MEDS: Metoprolol Succinate 50 mg XL Tab PO SCH (07:39)
--- NOTE | 2017-07-30 12:00 | CP.PCM.PN ---
<Estuardo Traore - Last Filed: 07/30/17 12:02> Subjective - Date & Time of Evaluation Date of Evaluation: 07/30/17 Time of Evaluation: 06:00 - Subjective Subjective: Patient seen and examined bedside. No acute issues overnight. Patient complaining of headache. Patient denies chest pain, SOB, abdominal pain, fever, chills or any other complaints at this time. Objective - Vital Signs/Intake and Output Vital Signs (last 24 hours): Temp Pulse Resp BP Pulse Ox 98.7 F 70 18 110/59 L 95 07/29/17 17:43 07/30/17 07:39 07/29/17 17:43 07/30/17 10:08 07/29/17 14:30 Intake and Output: 07/30/17 07/30/17 06:59 18:59 Intake Total 100 Balance 100 - Medications Medications: Current Medications Allopurinol (Zyloprim) 100 mg PO 0800,1800 [facility] PRN Reason: Protocol Last Admin: 07/30/17 08:02 Dose: 100 mg Camphor/Menthol (Bengay) 0 gm TOP QID PRN PRN Reason: pain Colchicine (Colocrys) 0.6 mg PO BID [facility] PRN Reason: Protocol Last Admin: 07/22/17 17:42 Dose: 0.6 mg Digoxin (Digoxin) 0.125 mg PO Q48H [facility] PRN Reason: Protocol Last Admin: 07/28/17 13:35 Dose: 0.125 mg Famotidine (Pepcid) 20 mg PO HS [facility] PRN Reason: Protocol Last Admin: 07/29/17 21:31 Dose: 20 mg Furosemide (Lasix) 40 mg PO DAILY [facility] Last Admin: 07/30/17 10:08 Dose: 40 mg Furosemide (Lasix) 20 mg PO 1800 [facility] Last Admin: 07/29/17 17:54 Dose: 20 mg Milrinone Lactate/Dextrose (Primacor 20mg/100ml D5w) 100 mls @ 6.287 mls/hr IV .[id number] PRN; Protocol PRN Reason: TITRATE PER MD ORDER Last Admin: 07/30/17 00:56 Dose: 6.287 mls/hr Isosorbide Mononitrate (Imdur Er) 30 mg PO 0600 [facility] PRN Reason: Protocol Last Admin: 07/30/17 05:43 Dose: 30 mg Levothyroxine Sodium (Synthroid) 112 mcg PO 0600 [facility] PRN Reason: Protocol Last Admin: 07/30/17 05:44 Dose: 112 mcg Losartan Potassium (Cozaar) 50 mg PO DAILY [facility] Last Admin: 07/30/17 10:06 Dose: Not Given Metoprolol Succinate (Toprol Xl) 50 mg PO 0800 [facility] PRN Reason: Protocol Last Admin: 07/30/17 07:39 Dose: Not Given Polyethylene Glycol (Miralax) 17 gm PO BID [facility] PRN Reason: Protocol Last Admin: 07/22/17 17:43 Dose: Not Given Prednisone (Prednisone Tab) 10 mg PO 0800 [facility] PRN Reason: Protocol Last Admin: 07/30/17 08:02 Dose: 10 mg Tramadol HCl (Ultram) 50 mg PO Q8H PRN PRN Reason: Pain, moderate (4-7) Last Admin: 07/28/17 15:37 Dose: 50 mg Warfarin Sodium (Coumadin) 5 mg PO 1800 [facility] - Labs Labs: 07/21/17 07:00 07/29/17 06:20 PT 21.7 SECONDS (9.4-12.5) H 07/30/17 05:00 INR 1.86 (0.93-1.08) H 07/30/17 05:00 APTT 27.7 Seconds (25.1-36.5) 07/21/17 07:00 - Constitutional Appears: Non-toxic, No Acute Distress - Head Exam Head Exam: ATRAUMATIC, NORMAL INSPECTION, NORMOCEPHALIC - Eye Exam Eye Exam: EOMI, Normal appearance - ENT Exam ENT Exam: Mucous Membranes Moist - Respiratory Exam Respiratory Exam: Clear to Ausculation Bilateral, NORMAL BREATHING PATTERN - Cardiovascular Exam Cardiovascular Exam: REGULAR RHYTHM, +S1, +S2 - Neurological Exam Neurological Exam: Alert, Awake, Oriented x3 Assessment and Plan - Assessment and Plan (Free Text) Assessment: 86 year old female with PMH of Systolic CHF with EF of 8% and ICD placement on chronic IV milrinone therapy, A-fib on Coumadin, hypothyroidism, and gout admitted for lower extremity pain and difficulty ambulating 2/2 likely acute gout flare s/p intra-articular steroid injection, also found to have DAPHNE on CKD , which is improving. Pt transferred to TCU for rehab. Plan: Left ankle and foot pain/swelling 2/2 gout flare - Allopurinol 100mg PO BID - Colchicine 0.6mg PO BID - on hold - Prednisone taper - Tramadol 50 mg PO q8h prn - PT - F/u outpatient with Ortho DAPHNE on CKD - resolved - Lasix 40 mg PO in am - Lasix 20 mg PO in pm - Losartan 50 mg PO daily - Avoid nephrotoxic agents like NSAIDs - Feurea 19.1%, prerenal - Dr Marcum consulted. appreciate recs supratheraputic INR - INR 1.86 - increased warfarin to 5mg today, repeat INR tomorrow history of CHF - at baseline per patient - Digoxin 0.125mg PO q48h - Dig level 0.9 - therapeutic - Imdur 30mg PO daily - Metoprolol 50mg PO daily - milirone drip - consulted cash shortage investigator Dr. Alcantara. appreciate recs. History of Atrial fibrillation - Rate controlled. home toprol - Warfarin 5 mg PO daily History of Hypothyroidism - Continue Synthroid 112mcg PO daily Hyperkalemia-resolved Prophylactic Care DVT - Warfarin 4 mg PO daily GI - Pepcid 20mg PO HS DISPO: Patient is scheduled to be discharged home with services. Script for Milirone Drip is in patient's chart. <Marleny Man - Last Filed: 07/30/17 12:09> Objective - Vital Signs/Intake and Output Vital Signs (last 24 hours): Temp Pulse Resp BP Pulse Ox 98.7 F 70 18 110/59 L 95 07/29/17 17:43 07/30/17 07:39 07/29/17 17:43 07/30/17 10:08 07/29/17 14:30 Intake and Output: 07/30/17 07/30/17 06:59 18:59 Intake Total 100 Balance 100 - Medications Medications: Current Medications Allopurinol (Zyloprim) 100 mg PO 0800,1800 [facility] PRN Reason: Protocol Last Admin: 07/30/17 08:02 Dose: 100 mg Camphor/Menthol (Bengay) 0 gm TOP QID PRN PRN Reason: pain Colchicine (Colocrys) 0.6 mg PO BID [facility] PRN Reason: Protocol Last Admin: 07/22/17 17:42 Dose: 0.6 mg Digoxin (Digoxin) 0.125 mg PO Q48H [facility] PRN Reason: Protocol Last Admin: 07/28/17 13:35 Dose: 0.125 mg Famotidine (Pepcid) 20 mg PO HS [facility] PRN Reason: Protocol Last Admin: 07/29/17 21:31 Dose: 20 mg Furosemide (Lasix) 40 mg PO DAILY [facility] Last Admin: 07/30/17 10:08 Dose: 40 mg Furosemide (Lasix) 20 mg PO 1800 [facility] Last Admin: 07/29/17 17:54 Dose: 20 mg Milrinone Lactate/Dextrose (Primacor 20mg/100ml D5w) 100 mls @ 6.287 mls/hr IV .[id number] PRN; Protocol PRN Reason: TITRATE PER MD ORDER Last Admin: 07/30/17 00:56 Dose: 6.287 mls/hr Isosorbide Mononitrate (Imdur Er) 30 mg PO 0600 [facility] PRN Reason: Protocol Last Admin: 07/30/17 05:43 Dose: 30 mg Levothyroxine Sodium (Synthroid) 112 mcg PO 0600 [facility] PRN Reason: Protocol Last Admin: 07/30/17 05:44 Dose: 112 mcg Losartan Potassium (Cozaar) 50 mg PO DAILY [facility] Last Admin: 07/30/17 10:06 Dose: Not Given Metoprolol Succinate (Toprol Xl) 50 mg PO 0800 [facility] PRN Reason: Protocol Last Admin: 07/30/17 07:39 Dose: Not Given Polyethylene Glycol (Miralax) 17 gm PO BID [facility] PRN Reason: Protocol Last Admin: 07/22/17 17:43 Dose: Not Given Prednisone (Prednisone Tab) 10 mg PO 0800 [facility] PRN Reason: Protocol Last Admin: 07/30/17 08:02 Dose: 10 mg Tramadol HCl (Ultram) 50 mg PO Q8H PRN PRN Reason: Pain, moderate (4-7) Last Admin: 07/28/17 15:37 Dose: 50 mg Warfarin Sodium (Coumadin) 5 mg PO 1800 [facility] - Labs Labs: 07/21/17 07:00 07/29/17 06:20 PT 21.7 SECONDS (9.4-12.5) H 07/30/17 05:00 INR 1.86 (0.93-1.08) H 07/30/17 05:00 APTT 27.7 Seconds (25.1-36.5) 07/21/17 07:00 Attending/Attestation - Attestation I have personally seen and examined this patient.: Yes I have fully participated in the care of the patient.: Yes I have reviewed all pertinent clinical information, including history, physical exam and plan: Yes Notes (Text): 07/30/17 12:08 86 year old female with past medical history of systolic CHF s/p ICD on chronic milrinone therapy, afib on coumadin, hypothyroidism and CKD who presented with lower extremity pain, weakness with difficulty ambulating, chronic dyspnea and acute on chronic renal failure. She is on lasix and milrinone drip. Cardiology is following the patient. INR today is 1.86 today. Will increase coumadin to 5 mg tonight and recheck in AM. Acute on chronic renal failure has improved. Creatinine has been stable. Nephrology is following. She is on steroid taper, colchichine and allopurinol for acute gout flare. Continue with physical therapy while in TCU. Family is also at bedside and questions were answered. D/c planning possibly Tuesday home with home services (see SW notes). Marleny Man MD Hospitalist.
[2017-07-30] MEDS: Digoxin 125 mcg (0.125 mg) Tab PO SCH (14:11)
[2017-07-31] MEDS: Levothyroxine 112 MCG TAB PO SCH (06:48)
--- NOTE | 2017-07-31 07:11 | CP.PCM.PN ---
Subjective - Date & Time of Evaluation Date of Evaluation: 07/31/17 Time of Evaluation: 07:00 - Subjective Subjective: Stable in TCU. No CP or SOB. She feels better. Ambulated in hallway yesterday. V/S noted. P= 60 - 70 PE: Lungs: clear Cor.: S1S2 Abd.: soft Ext.: no edema Neuro.: alert Labs 07/30 noted: INR = 1.86 Joint fluid + for uric acid crystals Objective - Vital Signs/Intake and Output Vital Signs (last 24 hours): Temp Pulse Resp BP Pulse Ox 98.1 F 70 18 110/62 99 07/31/17 05:58 07/31/17 05:58 07/31/17 05:58 07/31/17 05:58 07/31/17 05:58 - Medications Medications: Current Medications Allopurinol (Zyloprim) 100 mg PO 0800,1800 [facility] PRN Reason: Protocol Last Admin: 07/30/17 17:07 Dose: 100 mg Camphor/Menthol (Bengay) 0 gm TOP QID PRN PRN Reason: pain Colchicine (Colocrys) 0.6 mg PO BID [facility] PRN Reason: Protocol Last Admin: 07/22/17 17:42 Dose: 0.6 mg Digoxin (Digoxin) 0.125 mg PO Q48H [facility] PRN Reason: Protocol Last Admin: 07/30/17 14:11 Dose: 0.125 mg Famotidine (Pepcid) 20 mg PO HS [facility] PRN Reason: Protocol Last Admin: 07/31/17 06:49 Dose: 20 mg Furosemide (Lasix) 40 mg PO DAILY [facility] Last Admin: 07/30/17 10:08 Dose: 40 mg Furosemide (Lasix) 20 mg PO 1800 [facility] Last Admin: 07/30/17 17:07 Dose: 20 mg Milrinone Lactate/Dextrose (Primacor 20mg/100ml D5w) 100 mls @ 6.287 mls/hr IV .[id number] PRN; Protocol PRN Reason: TITRATE PER MD ORDER Last Admin: 07/30/17 17:10 Dose: 6.287 mls/hr Isosorbide Mononitrate (Imdur Er) 30 mg PO 0600 [facility] PRN Reason: Protocol Last Admin: 07/31/17 06:48 Dose: 30 mg Levothyroxine Sodium (Synthroid) 112 mcg PO 0600 [facility] PRN Reason: Protocol Last Admin: 07/31/17 06:48 Dose: 112 mcg Losartan Potassium (Cozaar) 50 mg PO DAILY [facility] Last Admin: 07/30/17 10:06 Dose: Not Given Metoprolol Succinate (Toprol Xl) 50 mg PO 0800 [facility] PRN Reason: Protocol Last Admin: 07/30/17 07:39 Dose: Not Given Polyethylene Glycol (Miralax) 17 gm PO BID [facility] PRN Reason: Protocol Last Admin: 07/22/17 17:43 Dose: Not Given Prednisone (Prednisone Tab) 5 mg PO 0800 [facility] PRN Reason: Protocol Tramadol HCl (Ultram) 50 mg PO Q8H PRN PRN Reason: Pain, moderate (4-7) Last Admin: 07/30/17 14:11 Dose: 50 mg Warfarin Sodium (Coumadin) 5 mg PO 1800 [facility] Last Admin: 07/30/17 17:06 Dose: 5 mg - Labs Labs: 07/21/17 07:00 07/29/17 06:20 PT 21.7 SECONDS (9.4-12.5) H 07/30/17 05:00 INR 1.86 (0.93-1.08) H 07/30/17 05:00 APTT 27.7 Seconds (25.1-36.5) 07/21/17 07:00 Assessment and Plan - Assessment and Plan (Free Text) Assessment: IVY CHF-IV on home milrinone infusion CCM Severe MR,TR and PH on echo Acute gout CKD Chronic AF on warfarin ICD CVA Hypothyroidism GB and Back surgery Former Smoker Plan: Continue cardiac meds and milrinone infusion Decrease prednisone to 5 mg./day Await INR today. BMP and INR in AM OOB/PT Rehab. efforts.
[2017-07-31 07:53] LABS: INR 2.22 (0.93-1.08)
[2017-07-31] MEDS: Metoprolol Succinate 50 mg XL Tab PO SCH (08:23)
[2017-07-31] MEDS: Milrinone 20mg/100ml D5W 100 ML IV PRN (10:00)
[2017-08-01] MEDS: Milrinone 20mg/100ml D5W 100 ML IV PRN ×2 (02:24→19:25)
[2017-08-01] MEDS: Levothyroxine 112 MCG TAB PO SCH (05:14)
[2017-08-01 06:57] LABS: INR 2.48 (0.93-1.08); PROTHROMBIN TIME 29.1 SECONDS (9.4-12.5)
[2017-08-01 06:58] LABS: CALCIUM 8.9 mg/dL (8.4-10.5)
--- NOTE | 2017-08-01 07:57 | CP.PCM.PN ---
<Angie Salazar - Last Filed: 08/01/17 09:46> Subjective - Date & Time of Evaluation Date of Evaluation: 08/01/17 Time of Evaluation: 08:50 - Subjective Subjective: Progress note for hospitalist service. Patient with no acute events overnight. States she's feeling much better, denies cp, sob, no nausea, vomiting or diarrhea. slept well and is tolerating po. No fever or chills. Objective - Vital Signs/Intake and Output Vital Signs (last 24 hours): Temp Pulse Resp BP Pulse Ox 98.1 F 69 18 107/50 L 99 07/31/17 05:58 08/01/17 02:24 07/31/17 05:58 08/01/17 02:24 07/31/17 05:58 Intake and Output: 08/01/17 08/01/17 06:59 18:59 Intake Total 100 Balance 100 - Medications Medications: Current Medications Allopurinol (Zyloprim) 100 mg PO 0800,1800 [facility] PRN Reason: Protocol Last Admin: 07/31/17 17:37 Dose: 100 mg Camphor/Menthol (Bengay) 0 gm TOP QID PRN PRN Reason: pain Colchicine (Colocrys) 0.6 mg PO BID [facility] PRN Reason: Protocol Last Admin: 07/22/17 17:42 Dose: 0.6 mg Digoxin (Digoxin) 0.125 mg PO Q48H [facility] PRN Reason: Protocol Last Admin: 07/30/17 14:11 Dose: 0.125 mg Famotidine (Pepcid) 20 mg PO HS [facility] PRN Reason: Protocol Last Admin: 07/31/17 21:15 Dose: 20 mg Furosemide (Lasix) 40 mg PO DAILY [facility] Last Admin: 07/31/17 12:03 Dose: 40 mg Furosemide (Lasix) 20 mg PO 1800 [facility] Last Admin: 07/31/17 17:24 Dose: Not Given Milrinone Lactate/Dextrose (Primacor 20mg/100ml D5w) 100 mls @ 6.287 mls/hr IV .[id number] PRN; Protocol PRN Reason: TITRATE PER MD ORDER Last Admin: 08/01/17 02:24 Dose: 6.287 mls/hr Isosorbide Mononitrate (Imdur Er) 30 mg PO 0600 [facility] PRN Reason: Protocol Last Admin: 08/01/17 05:13 Dose: 30 mg Levothyroxine Sodium (Synthroid) 112 mcg PO 0600 [facility] PRN Reason: Protocol Last Admin: 08/01/17 05:14 Dose: 112 mcg Losartan Potassium (Cozaar) 50 mg PO DAILY [facility] Last Admin: 07/31/17 09:15 Dose: Not Given Metoprolol Succinate (Toprol Xl) 50 mg PO 0800 [facility] PRN Reason: Protocol Last Admin: 07/31/17 08:23 Dose: 50 mg Polyethylene Glycol (Miralax) 17 gm PO BID [facility] PRN Reason: Protocol Last Admin: 07/22/17 17:43 Dose: Not Given Prednisone (Prednisone Tab) 5 mg PO 0800 [facility] Last Admin: 07/31/17 08:22 Dose: 5 mg Tramadol HCl (Ultram) 50 mg PO Q8H PRN PRN Reason: Pain, moderate (4-7) Last Admin: 07/31/17 22:45 Dose: 50 mg Warfarin Sodium (Coumadin) 5 mg PO 1800 [facility] Last Admin: 07/31/17 17:37 Dose: 5 mg - Labs Labs: 07/21/17 07:00 08/01/17 06:20 PT 29.1 SECONDS (9.4-12.5) H 08/01/17 06:20 INR 2.48 (0.93-1.08) H 08/01/17 06:20 APTT 27.7 Seconds (25.1-36.5) 07/21/17 07:00 - Constitutional Appears: No Acute Distress, Cachectic, Chronically Ill - Head Exam Head Exam: ATRAUMATIC, NORMAL INSPECTION, NORMOCEPHALIC - Eye Exam Eye Exam: EOMI, Normal appearance, PERRL Pupil Exam: NORMAL ACCOMODATION - ENT Exam ENT Exam: Mucous Membranes Moist - Neck Exam Neck Exam: Normal Inspection - Respiratory Exam Respiratory Exam: Clear to Ausculation Bilateral, NORMAL BREATHING PATTERN. absent: Prolonged Expiratory Phase, Rales, Rhonchi, Wheezes, Respiratory Distress, Stridor - Cardiovascular Exam Cardiovascular Exam: REGULAR RHYTHM, RRR, +S1, +S2. absent: Bradycardia, Tachycardia - GI/Abdominal Exam GI & Abdominal Exam: Soft, Normal Bowel Sounds. absent: Distended, Firm, Guarding, Rigid, Tenderness - Extremities Exam Extremities Exam: Normal Inspection. absent: Pedal Edema - Back Exam Back Exam: NORMAL INSPECTION - Neurological Exam Neurological Exam: Alert, Awake, Oriented x3 - Psychiatric Exam Psychiatric exam: Normal Affect, Normal Mood - Skin Skin Exam: Dry, Normal Color, Warm Assessment and Plan - Assessment and Plan (Free Text) Assessment: Patient is an 87 y/o with CHF ( LVEF of 8%) s/p AICD, on chronic IV milrinone therapy, A-fib on Coumadin, hypothyroidism, and gout admitted with lower extremity pain and difficulty ambulating. Currently in TCU for rehab. Plan: 1) Left ankle and foot edema and pain likely due to gout flare - s/p intra-articular steroid injection, - Continue with allopurinol, colchicine, prednisone tapering dose - On tramadol for pain - Continue PT and follow up with ortho as outpatient 2) DAPHNE on CKD - Creat is stable at 1.3 - Will avoid nephrotox and continue to monitor - Nephro following 3) h/o Afib- rate controlled - INR therapeutic - will continue Coumadin 5 mg - Continue digoxin and toprol xl 4) h/o systolic CHF with low EF - S/P aicd - continue with milrinone drip - On imdur and cozaar - On lasix - Cardio following 5) H/O Hypothyroidism - Continue Synthroid 6) Gi and DVT prophylaxis: Pepcid and Coumadin for afib. 7) Constipation- continue with miralax. 8) Dispo- to be discharged home with service on Tuesday. Patient seen, examined and case discussed with Dr Guerrero. <Marvin Guerrero - Last Filed: 08/01/17 15:15> Objective - Vital Signs/Intake and Output Vital Signs (last 24 hours): Temp Pulse Resp BP Pulse Ox 98.1 F 69 18 115/52 L 99 07/31/17 05:58 08/01/17 09:58 07/31/17 05:58 08/01/17 09:58 07/31/17 05:58 Intake and Output: 08/01/17 08/01/17 06:59 18:59 Intake Total 100 Balance 100 - Medications Medications: Current Medications Allopurinol (Zyloprim) 100 mg PO 0800,1800 [facility] PRN Reason: Protocol Last Admin: 08/01/17 08:03 Dose: 100 mg Camphor/Menthol (Bengay) 0 gm TOP QID PRN PRN Reason: pain Colchicine (Colocrys) 0.6 mg PO BID [facility] PRN Reason: Protocol Last Admin: 07/22/17 17:42 Dose: 0.6 mg Digoxin (Digoxin) 0.125 mg PO Q48H [facility] PRN Reason: Protocol Last Admin: 08/01/17 14:13 Dose: 0.125 mg Famotidine (Pepcid) 20 mg PO HS [facility] PRN Reason: Protocol Last Admin: 07/31/17 21:15 Dose: 20 mg Furosemide (Lasix) 40 mg PO DAILY [facility] Last Admin: 08/01/17 09:58 Dose: 40 mg Furosemide (Lasix) 20 mg PO 1800 [facility] Last Admin: 07/31/17 17:24 Dose: Not Given Milrinone Lactate/Dextrose (Primacor 20mg/100ml D5w) 100 mls @ 6.287 mls/hr IV .[id number] PRN; Protocol PRN Reason: TITRATE PER MD ORDER Last Admin: 08/01/17 02:24 Dose: 6.287 mls/hr Isosorbide Mononitrate (Imdur Er) 30 mg PO 0600 [facility] PRN Reason: Protocol Last Admin: 08/01/17 05:13 Dose: 30 mg Levothyroxine Sodium (Synthroid) 112 mcg PO 0600 [facility] PRN Reason: Protocol Last Admin: 08/01/17 05:14 Dose: 112 mcg Losartan Potassium (Cozaar) 50 mg PO DAILY [facility] Last Admin: 08/01/17 09:58 Dose: Not Given Metoprolol Succinate (Toprol Xl) 50 mg PO 0800 [facility] PRN Reason: Protocol Last Admin: 08/01/17 08:03 Dose: 50 mg Polyethylene Glycol (Miralax) 17 gm PO BID [facility] PRN Reason: Protocol Last Admin: 07/22/17 17:43 Dose: Not Given Prednisone (Prednisone Tab) 5 mg PO 0800 [facility] Last Admin: 08/01/17 08:03 Dose: 5 mg Tramadol HCl (Ultram) 50 mg PO Q8H PRN PRN Reason: Pain, moderate (4-7) Last Admin: 08/01/17 11:59 Dose: 50 mg Warfarin Sodium (Coumadin) 4 mg PO 1800 [facility] - Labs Labs: 07/21/17 07:00 08/01/17 06:20 PT 29.1 SECONDS (9.4-12.5) H 08/01/17 06:20 INR 2.48 (0.93-1.08) H 08/01/17 06:20 APTT 27.7 Seconds (25.1-36.5) 07/21/17 07:00 Attending/Attestation - Attestation I have personally seen and examined this patient.: Yes I have fully participated in the care of the patient.: Yes I have reviewed all pertinent clinical information, including history, physical exam and plan: Yes Notes (Text): 08/01/17 15:13 attending note; Patient seen and examined with resident in TCU. Patient is a 86 year old female with past medical history of systolic CHF s/p ICD on chronic milrinone therapy, afib on coumadin, hyothyroidism and CKD who presented with lower extremity pain, weakness with difficulty ambulating and chronic dyspnea. Currently getting physical therapy in TCU. history of A. fib;Continue Coumadin. INR is therapeutic. severe cardiomyopathy and ICD placement. Continue home milrinone. acute gout flareup. Improved significantly. Left knee and ankle swelling improved . Started on steroid, colchicine and allopurinol. patient is DNI DNR. continue physical therapy/occupational therapy. Will discuss with caseworker protective services/social services tomorrow for discharge planning. Upon discharge the patient will follow-up with PMD .
[2017-08-01] MEDS: Metoprolol Succinate 50 mg XL Tab PO SCH (08:03)
[2017-08-01] MEDS: Digoxin 125 mcg (0.125 mg) Tab PO SCH (14:13)
[2017-08-02] MEDS: Levothyroxine 112 MCG TAB PO SCH (06:09)
--- NOTE | 2017-08-02 07:35 | CP.PCM.PN ---
Subjective - Date & Time of Evaluation Date of Evaluation: 08/02/17 Time of Evaluation: 07:00 - Subjective Subjective: Stable in TCU. No CP or SOB. V/S noted. P= 60 - 70 PE: Lungs: clear Cor.: S1S2 Abd.: soft Ext.: no edema Neuro.: alert Labs 08/01 noted: INR = 2.48,, K+= 4.6, Cr.= 1.3 Joint fluid + for uric acid crystals Objective - Vital Signs/Intake and Output Vital Signs (last 24 hours): Temp Pulse Resp BP Pulse Ox 98.1 F 69 20 114/56 L 98 08/01/17 16:00 08/01/17 19:25 08/01/17 16:00 08/01/17 19:25 08/01/17 10:00 - Medications Medications: Current Medications Allopurinol (Zyloprim) 100 mg PO 0800,1800 [facility] PRN Reason: Protocol Last Admin: 08/01/17 17:23 Dose: 100 mg Camphor/Menthol (Bengay) 0 gm TOP QID PRN PRN Reason: pain Colchicine (Colocrys) 0.6 mg PO BID [facility] PRN Reason: Protocol Last Admin: 07/22/17 17:42 Dose: 0.6 mg Digoxin (Digoxin) 0.125 mg PO Q48H [facility] PRN Reason: Protocol Last Admin: 08/01/17 14:13 Dose: 0.125 mg Famotidine (Pepcid) 20 mg PO HS [facility] PRN Reason: Protocol Last Admin: 08/01/17 22:06 Dose: 20 mg Furosemide (Lasix) 40 mg PO DAILY [facility] Last Admin: 08/01/17 09:58 Dose: 40 mg Furosemide (Lasix) 20 mg PO 1800 [facility] Last Admin: 08/01/17 17:18 Dose: Not Given Milrinone Lactate/Dextrose (Primacor 20mg/100ml D5w) 100 mls @ 6.287 mls/hr IV .[id number] PRN; Protocol PRN Reason: TITRATE PER MD ORDER Last Admin: 08/01/17 19:25 Dose: 6.287 mls/hr Isosorbide Mononitrate (Imdur Er) 30 mg PO 0600 [facility] PRN Reason: Protocol Last Admin: 08/02/17 06:09 Dose: 30 mg Levothyroxine Sodium (Synthroid) 112 mcg PO 0600 [facility] PRN Reason: Protocol Last Admin: 08/02/17 06:09 Dose: 112 mcg Losartan Potassium (Cozaar) 50 mg PO DAILY [facility] Last Admin: 08/01/17 09:58 Dose: Not Given Metoprolol Succinate (Toprol Xl) 50 mg PO 0800 [facility] PRN Reason: Protocol Last Admin: 08/01/17 08:03 Dose: 50 mg Polyethylene Glycol (Miralax) 17 gm PO BID [facility] PRN Reason: Protocol Last Admin: 07/22/17 17:43 Dose: Not Given Prednisone (Prednisone Tab) 5 mg PO 0800 [facility] Last Admin: 08/01/17 08:03 Dose: 5 mg Tramadol HCl (Ultram) 50 mg PO Q8H PRN PRN Reason: Pain, moderate (4-7) Last Admin: 08/01/17 11:59 Dose: 50 mg Warfarin Sodium (Coumadin) 4 mg PO 1800 [facility] Last Admin: 08/01/17 17:25 Dose: 4 mg - Labs Labs: 07/21/17 07:00 08/01/17 06:20 PT 29.1 SECONDS (9.4-12.5) H 08/01/17 06:20 INR 2.48 (0.93-1.08) H 08/01/17 06:20 APTT 27.7 Seconds (25.1-36.5) 07/21/17 07:00 Assessment and Plan - Assessment and Plan (Free Text) Assessment: IVY CHF-IV on home milrinone infusion CCM Severe MR,TR and PH on echo Acute gout CKD Chronic AF on warfarin ICD CVA Hypothyroidism GB and Back surgery Former Smoker Plan: Continue cardiac meds and milrinone infusion Decrease prednisone to 5 mg./day > taper off Await resolotion of insurance issues. OOB/PT Rehab. efforts.
[2017-08-02] MEDS: Metoprolol Succinate 50 mg XL Tab PO SCH (08:03)
[2017-08-02] MEDS: Milrinone 20mg/100ml D5W 100 ML IV PRN (11:43)
--- NOTE | 2017-08-02 20:14 | CP.PCM.PN ---
Subjective - Date & Time of Evaluation Date of Evaluation: 08/02/17 Time of Evaluation: 12:00 - Subjective Subjective: Patient reports feeling well; no sob; Objective - Vital Signs/Intake and Output Vital Signs (last 24 hours): Temp Pulse Resp BP Pulse Ox 97.5 F L 69 20 115/60 95 08/02/17 16:00 08/02/17 16:00 08/02/17 16:00 08/02/17 17:42 08/02/17 10:00 Intake and Output: 08/02/17 08/03/17 18:59 06:59 Intake Total 100 Balance 100 - Medications Medications: Current Medications Allopurinol (Zyloprim) 100 mg PO 0800,1800 YAA PRN Reason: Protocol Last Admin: 08/02/17 17:43 Dose: 100 mg Camphor/Menthol (Bengay) 0 gm TOP QID PRN PRN Reason: pain Colchicine (Colocrys) 0.6 mg PO BID YAA PRN Reason: Protocol Last Admin: 07/22/17 17:42 Dose: 0.6 mg Digoxin (Digoxin) 0.125 mg PO Q48H YAA PRN Reason: Protocol Last Admin: 08/01/17 14:13 Dose: 0.125 mg Famotidine (Pepcid) 20 mg PO HS YAA PRN Reason: Protocol Last Admin: 08/01/17 22:06 Dose: 20 mg Furosemide (Lasix) 40 mg PO DAILY [facility] Last Admin: 08/02/17 09:53 Dose: 40 mg Furosemide (Lasix) 20 mg PO 1800 [facility] Last Admin: 08/02/17 17:42 Dose: 20 mg Milrinone Lactate/Dextrose (Primacor 20mg/100ml D5w) 100 mls @ 6.287 mls/hr IV .[id number] PRN; Protocol PRN Reason: TITRATE PER MD ORDER Last Admin: 08/02/17 11:43 Dose: 6.287 mls/hr Isosorbide Mononitrate (Imdur Er) 30 mg PO 0600 [facility] PRN Reason: Protocol Last Admin: 08/02/17 06:09 Dose: 30 mg Levothyroxine Sodium (Synthroid) 112 mcg PO 0600 YAA PRN Reason: Protocol Last Admin: 08/02/17 06:09 Dose: 112 mcg Losartan Potassium (Cozaar) 50 mg PO DAILY [facility] Last Admin: 08/02/17 09:51 Dose: Not Given Metoprolol Succinate (Toprol Xl) 50 mg PO 0800 [facility] PRN Reason: Protocol Last Admin: 08/02/17 08:03 Dose: 50 mg Polyethylene Glycol (Miralax) 17 gm PO BID YAA PRN Reason: Protocol Last Admin: 07/22/17 17:43 Dose: Not Given Prednisone (Prednisone Tab) 5 mg PO 0800 [facility] Last Admin: 08/02/17 08:03 Dose: 5 mg Tramadol HCl (Ultram) 50 mg PO Q8H PRN PRN Reason: Pain, moderate (4-7) Last Admin: 08/02/17 08:08 Dose: 50 mg Warfarin Sodium (Coumadin) 4 mg PO 1800 [facility] Last Admin: 08/02/17 17:42 Dose: 4 mg - Labs Labs: 07/21/17 07:00 08/01/17 06:20 PT 29.1 SECONDS (9.4-12.5) H 08/01/17 06:20 INR 2.48 (0.93-1.08) H 08/01/17 06:20 APTT 27.7 Seconds (25.1-36.5) 07/21/17 07:00 - Constitutional Appears: Non-toxic, No Acute Distress - Eye Exam Eye Exam: absent: Scleral icterus - ENT Exam ENT Exam: Mucous Membranes Moist - Respiratory Exam Respiratory Exam: absent: Respiratory Distress Additional comments: bilateral fine basal rales (chronic) - Cardiovascular Exam Cardiovascular Exam: RRR, +S1, +S2 - GI/Abdominal Exam GI & Abdominal Exam: Soft. absent: Distended, Tenderness - Extremities Exam Additional comments: mild lower leg edema - Neurological Exam Neurological Exam: Alert, Awake - Psychiatric Exam Psychiatric exam: Normal Mood. absent: Agitated - Skin Skin Exam: Warm. absent: Cyanosis Assessment and Plan (1) CKD (chronic kidney disease), stage III Assessment & Plan: Cardiorenal etiology, stable renal function; weights stable; continue to optimize CHF status per cardio recs; continue current diuretic regimen of PO lasix 40 mg in am and 20 mg in pm; Status: Chronic (2) Congestive heart failure Assessment & Plan: Euvolemic on exam; see above; Status: Chronic (3) Gout Assessment & Plan: continue allopurinol; Status: Chronic (4) Hyperkalemia Status: Resolved
[2017-08-03] MEDS: Milrinone 20mg/100ml D5W 100 ML IV PRN ×2 (05:50→19:49)
[2017-08-03] MEDS: Levothyroxine 112 MCG TAB PO SCH (05:55)
[2017-08-03] MEDS: Metoprolol Succinate 50 mg XL Tab PO SCH (07:33)
--- NOTE | 2017-08-03 08:42 | CP.PCM.PN ---
<Van Rubalcava - Last Filed: 08/03/17 12:04> Subjective - Date & Time of Evaluation Date of Evaluation: 08/03/17 Time of Evaluation: 08:30 - Subjective Subjective: PGY1 Medicine Note for Dr. Guerrero Patient seen and examined at bedside. No acute events overnight. Patient is had BM yesterday. Patient ambulating with walker and one assist. She is tolerating physical therapy. No complaints at this time. Objective - Vital Signs/Intake and Output Vital Signs (last 24 hours): Temp Pulse Resp BP Pulse Ox 98.1 F 69 16 108/60 96 08/03/17 06:32 08/03/17 07:33 08/03/17 06:32 08/03/17 07:33 08/03/17 06:32 Intake and Output: 08/03/17 08/03/17 06:59 18:59 Intake Total 100 Balance 100 - Medications Medications: Current Medications Allopurinol (Zyloprim) 100 mg PO 0800,1800 YAA PRN Reason: Protocol Last Admin: 08/02/17 17:43 Dose: 100 mg Camphor/Menthol (Bengay) 0 gm TOP QID PRN PRN Reason: pain Colchicine (Colocrys) 0.6 mg PO BID YAA PRN Reason: Protocol Last Admin: 07/22/17 17:42 Dose: 0.6 mg Digoxin (Digoxin) 0.125 mg PO Q48H YAA PRN Reason: Protocol Last Admin: 08/01/17 14:13 Dose: 0.125 mg Famotidine (Pepcid) 20 mg PO HS YAA PRN Reason: Protocol Last Admin: 08/02/17 22:00 Dose: 20 mg Furosemide (Lasix) 40 mg PO DAILY [facility] Last Admin: 08/02/17 09:53 Dose: 40 mg Furosemide (Lasix) 20 mg PO 1800 [facility] Last Admin: 08/02/17 17:42 Dose: 20 mg Milrinone Lactate/Dextrose (Primacor 20mg/100ml D5w) 100 mls @ 6.287 mls/hr IV .[id number] PRN; Protocol PRN Reason: TITRATE PER MD ORDER Last Admin: 08/03/17 05:50 Dose: 6.287 mls/hr Isosorbide Mononitrate (Imdur Er) 30 mg PO 0600 [facility] PRN Reason: Protocol Last Admin: 08/03/17 05:49 Dose: 30 mg Levothyroxine Sodium (Synthroid) 112 mcg PO 0600 [facility] PRN Reason: Protocol Last Admin: 08/03/17 05:55 Dose: 112 mcg Losartan Potassium (Cozaar) 50 mg PO DAILY [facility] Last Admin: 08/02/17 09:51 Dose: Not Given Metoprolol Succinate (Toprol Xl) 50 mg PO 0800 [facility] PRN Reason: Protocol Last Admin: 08/03/17 07:33 Dose: 50 mg Polyethylene Glycol (Miralax) 17 gm PO BID [facility] PRN Reason: Protocol Last Admin: 07/22/17 17:43 Dose: Not Given Tramadol HCl (Ultram) 50 mg PO Q8H PRN PRN Reason: Pain, moderate (4-7) Last Admin: 08/03/17 07:32 Dose: 50 mg Warfarin Sodium (Coumadin) 4 mg PO 1800 [facility] Last Admin: 08/02/17 17:42 Dose: 4 mg - Labs Labs: 07/21/17 07:00 08/01/17 06:20 PT 29.1 SECONDS (9.4-12.5) H 08/01/17 06:20 INR 2.48 (0.93-1.08) H 08/01/17 06:20 APTT 27.7 Seconds (25.1-36.5) 07/21/17 07:00 - Additional Findings Additional findings: - Constitutional Appears: No Acute Distress, Cachectic, Chronically Ill - Head Exam Head Exam: ATRAUMATIC, NORMAL INSPECTION, NORMOCEPHALIC - Eye Exam Eye Exam: EOMI, Normal appearance, PERRL Pupil Exam: NORMAL ACCOMODATION - ENT Exam ENT Exam: Mucous Membranes Moist - Neck Exam Neck Exam: Normal Inspection - Respiratory Exam Respiratory Exam: Clear to Ausculation Bilateral, NORMAL BREATHING PATTERN - Cardiovascular Exam Cardiovascular Exam: RRR, +S1, +S2 - GI/Abdominal Exam GI & Abdominal Exam: Soft, Normal Bowel Sounds. absent: Distended, Firm, Guarding, Rigid, Tenderness - Extremities Exam Extremities Exam: absent: Pedal Edema - Back Exam Back Exam: NORMAL INSPECTION - Neurological Exam Neurological Exam: Alert, Awake, Oriented x3 - Psychiatric Exam Psychiatric exam: Normal Affect, Normal Mood - Skin Skin Exam: Dry, Normal Color, Warm Assessment and Plan - Assessment and Plan (Free Text) Assessment: 87F with CHF ( LVEF of 8%) s/p AICD, on chronic IV milrinone therapy, A-fib on Coumadin, hypothyroidism, and gout admitted to TCU for conditioning and rehabilitation. Plan: 1) Left ankle and foot edema and pain likely due to gout flare - s/p intra-articular steroid injection, - Continue with allopurinol, colchicine, prednisone tapering dose - On tramadol for pain - Continue PT and follow up with ortho as outpatient 2) DAPHNE on CKD - Cr stable - Will avoid nephrotox and continue to monitor - Nephro following 3) Afib - rate controlled - INR therapeutic - will continue Coumadin 5 mg - Continue digoxin and toprol xl 4) Systolic CHF with low EF - S/P aicd - continue with milrinone drip - On imdur and cozaar - On lasix - Cardio following 5) Hypothyroidism - Continue Synthroid 7) Constipation - continue Miralax Disposition: Patient to be discharged with home services after TCU completion Case discussed with Dr Cesar Rubalcava PGY1 <Marvin Guerrero - Last Filed: 08/03/17 15:08> Objective - Vital Signs/Intake and Output Vital Signs (last 24 hours): Temp Pulse Resp BP Pulse Ox 98.1 F 69 16 107/52 L 96 08/03/17 06:32 08/03/17 09:35 08/03/17 06:32 08/03/17 09:36 08/03/17 06:32 Intake and Output: 08/03/17 08/03/17 06:59 18:59 Intake Total 100 Balance 100 - Medications Medications: Current Medications Allopurinol (Zyloprim) 100 mg PO 0800,1800 YAA PRN Reason: Protocol Last Admin: 08/03/17 08:00 Dose: 100 mg Camphor/Menthol (Bengay) 0 gm TOP QID PRN PRN Reason: pain Colchicine (Colocrys) 0.6 mg PO BID YAA PRN Reason: Protocol Last Admin: 07/22/17 17:42 Dose: 0.6 mg Digoxin (Digoxin) 0.125 mg PO Q48H YAA PRN Reason: Protocol Last Admin: 08/03/17 13:24 Dose: Not Given Famotidine (Pepcid) 20 mg PO HS YAA PRN Reason: Protocol Last Admin: 08/02/17 22:00 Dose: 20 mg Furosemide (Lasix) 20 mg PO 1800 [facility] Last Admin: 08/02/17 17:42 Dose: 20 mg Milrinone Lactate/Dextrose (Primacor 20mg/100ml D5w) 100 mls @ 6.287 mls/hr IV .[id number] PRN; Protocol PRN Reason: TITRATE PER MD ORDER Last Admin: 08/03/17 05:50 Dose: 6.287 mls/hr Isosorbide Mononitrate (Imdur Er) 30 mg PO 0600 [facility] PRN Reason: Protocol Last Admin: 08/03/17 05:49 Dose: 30 mg Levothyroxine Sodium (Synthroid) 112 mcg PO 0600 [facility] PRN Reason: Protocol Last Admin: 08/03/17 05:55 Dose: 112 mcg Losartan Potassium (Cozaar) 50 mg PO DAILY [facility] Last Admin: 08/03/17 09:35 Dose: Not Given Metoprolol Succinate (Toprol Xl) 50 mg PO 0800 [facility] PRN Reason: Protocol Last Admin: 08/03/17 07:33 Dose: 50 mg Polyethylene Glycol (Miralax) 17 gm PO BID [facility] PRN Reason: Protocol Last Admin: 07/22/17 17:43 Dose: Not Given Tramadol HCl (Ultram) 50 mg PO Q8H PRN PRN Reason: Pain, moderate (4-7) Last Admin: 08/03/17 07:32 Dose: 50 mg Warfarin Sodium (Coumadin) 4 mg PO 1800 [facility] Last Admin: 08/02/17 17:42 Dose: 4 mg - Labs Labs: 07/21/17 07:00 08/01/17 06:20 PT 29.1 SECONDS (9.4-12.5) H 08/01/17 06:20 INR 2.48 (0.93-1.08) H 08/01/17 06:20 APTT 27.7 Seconds (25.1-36.5) 07/21/17 07:00 Attending/Attestation - Attestation I have personally seen and examined this patient.: Yes I have fully participated in the care of the patient.: Yes I have reviewed all pertinent clinical information, including history, physical exam and plan: Yes Notes (Text): 05/30/18 15:07 attending note; Patient seen and examined with resident in TCU. Patient is a 86 year old female with past medical history of systolic CHF s/p ICD on chronic milrinone therapy, afib on coumadin, hyothyroidism and CKD who presented with lower extremity pain, weakness with difficulty ambulating and chronic dyspnea. Currently getting physical therapy in TCU. history of A. fib;Continue Coumadin. INR is therapeutic. severe cardiomyopathy and ICD placement. Continue home milrinone. acute gout flareup. Improved significantly. Left knee and ankle swelling improved . Started on steroid, colchicine and allopurinol. patient is DNI DNR. continue physical therapy/occupational therapy. Case discussed with social media job [employer] today. Patient will have outpatient/home milrinone drip arranged on August. We will discharge patient home on Tuesday. Patient is aware of the discharge plan. Upon discharge the patient will follow-up with PMD .
[2017-08-03] MEDS: Digoxin 125 mcg (0.125 mg) Tab PO SCH (13:24)
[2017-08-03] MEDS: POLYETHYLENE GLYCOL 3350 17 GM/Dose PACKET PO SCH (17:08)
--- NOTE | 2017-08-03 22:03 | PN ---
DATE: 08/03/2017 SUBJECTIVE: The patient is seen sitting in a chair on Transitional Care Unit. She appears comfortable. She has noticed worsening pain on the lateral aspect of her right foot. Pain is similar to her prior gouty pain. She denies any dyspnea. She has no edema. CURRENT MEDICATIONS: Include Coumadin, losartan, digoxin, Imdur, Lasix, Pepcid, Synthroid, Toprol XL, allopurinol, and Primacor. OBJECTIVE: GENERAL: She is a very elderly woman who appears comfortable at rest. VITAL SIGNS: Her blood pressure is 110/60 with a pulse of 70, respirations are 16. She is afebrile. HEENT: No JVD. CHEST: Bilateral scattered rhonchi. HEART: PMI displaced laterally with soft tones noted. ABDOMEN: Soft and nontender, normoactive bowel sounds. EXTREMITIES: No edema. No blood work pending from this morning. IMPRESSION: 1. Chronic congestive heart failure, fairly well-compensated, present class III symptoms. 2. Severe mitral tricuspid regurgitation. 3. Recent gout with worsened foot pain, suspect mild recurrence. 4. Chronic renal insufficiency. 5. Chronic atrial fibrillation. RECOMMENDATIONS: Her current medications should be continued for now. Resumption of once daily colchicine appears reasonable given her recurrent symptoms. From a cardiac standpoint, she appears stable for discharge home once medically cleared. Outpatient followup will be arranged as well. Dino Thompson MD
[2017-08-04] MEDS: Levothyroxine 112 MCG TAB PO SCH (05:18)
[2017-08-04 05:43] VITALS: O2SAT 100
[2017-08-04 07:02] LABS: INR 2.94 (0.93-1.08); PROTHROMBIN TIME 34.6 SECONDS (9.4-12.5)
[2017-08-04] MEDS: Metoprolol Succinate 50 mg XL Tab PO SCH (08:18)
[2017-08-04] MEDS: POLYETHYLENE GLYCOL 3350 17 GM/Dose PACKET PO SCH ×2 (09:36→17:49)
[2017-08-04] MEDS: Milrinone 20mg/100ml D5W 100 ML IV PRN (11:20)
[2017-08-04 16:29] VITALS: TEMP 97.5
[2017-08-04 20:42] VITALS: RESP 20
[2017-08-05] MEDS: Milrinone 20mg/100ml D5W 100 ML IV PRN (01:34)
[2017-08-05] MEDS: Levothyroxine 112 MCG TAB PO SCH (05:10)
[2017-08-05] MEDS ORDERED: Metoprolol Succinate 25 mg XL Tab PO SCH (08:00)
[2017-08-05] MEDS: POLYETHYLENE GLYCOL 3350 17 GM/Dose PACKET PO SCH (09:58)
[2017-08-05 10:00] VITALS: BP 116/60; PULSE 69
[2017-08-05] MEDS: Digoxin 125 mcg (0.125 mg) Tab PO SCH (13:34)
[2017-08-05 13:35] VITALS: PULSE 76
--- NOTE | 2017-08-05 14:12 | CP.PCM.DIS ---
<Aicha Fajardo - Last Filed: 08/05/17 17:30> Provider - Provider Date of Admission: 07/19/17 20:48 Attending physician: Marvin Guerrero MD Primary care physician: Boaz Green MD Consults: Cardiology: Dr Alcantara Orthopedics: Dr Hope Nephrology: Trixie Time Spent in preparation of Discharge (in minutes): 45 Diagnosis - Discharge Diagnosis (1) Acute gout of left ankle Status: Acute (2) Atrial fibrillation Status: Chronic Priority: Medium (3) CKD (chronic kidney disease), stage III Status: Chronic (4) Congestive heart failure Status: Chronic Priority: High (5) Gout Status: Chronic Priority: Medium (6) DAPHNE (acute kidney injury) Status: Resolved Hospital Course - Lab Results Lab Results: Most Recent Lab Values WBC 10.5 10^3/ul (4.5-11.0) 07/21/17 07:00 RBC 3.51 10^6/uL (3.5-6.1) 07/21/17 07:00 Hgb 10.5 g/dL (12.0-16.0) L 07/21/17 07:00 Hct 31.7 % (36.0-48.0) L 07/21/17 07:00 MCV 90.3 fl (80.0-105.0) 07/21/17 07:00 MCH 29.9 pg (25.0-35.0) 07/21/17 07:00 MCHC 33.1 g/dl (31.0-37.0) 07/21/17 07:00 RDW 15.0 % (11.5-14.5) H 07/21/17 07:00 Plt Count 293 10^3/uL (120.0-450.0) 07/21/17 07:00 MPV 8.6 fl (7.0-11.0) 07/21/17 07:00 PT 34.6 SECONDS (9.4-12.5) H 08/04/17 06:30 INR 2.94 (0.93-1.08) H 08/04/17 06:30 APTT 27.7 Seconds (25.1-36.5) 07/21/17 07:00 Sodium 138 mmol/L (132-148) 05/28/18 06:20 Potassium 4.6 mmol/L (3.6-5.0) 08/01/17 06:20 Chloride 101 mmol/L (98-107) 08/01/17 06:20 Carbon Dioxide 28 mmol/L (21-33) 08/01/17 06:20 Anion Gap 14 (10-20) 08/01/17 06:20 BUN 41 mg/dL (7-21) H 08/01/17 06:20 Creatinine 1.3 mg/dl (0.7-1.2) H 08/01/17 06:20 Est GFR ( Amer) 47 08/01/17 06:20 Est GFR (Non-Af Amer) 39 08/01/17 06:20 Random Glucose 96 mg/dL (70-110) 08/01/17 06:20 Uric Acid 6.7 mg/dL (2.5-6.2) H 07/26/17 06:00 Calcium 8.9 mg/dL (8.4-10.5) 08/01/17 06:20 Iron 46 ug/dL (45-180) 07/21/17 07:00 TIBC 276 ug/dL (265-497) 07/21/17 07:00 % Saturation 17 % (20-55) L 07/21/17 07:00 Ferritin 193.0 ng/mL 07/21/17 07:00 Digoxin 0.9 ng/mL (0.8-2.0) 07/26/17 07:00 - Hospital Course Hospital Course: PGY-[address] Guerrero Ms Barlow, 86 F, with PMHx of systolic CHF s/p AICD (EF 8% on previous echocardiogram) on milrinone drip, Atrial fibrillation on coumadin, Hypothyroidism, gout was admitted to [facility] for worsening leg and foot swelling and pain, not being able to bear weight, as well as dyspnea on excretion. Arthrocentesis of L knee (07/18) shows urate crystal. She was treated with steroid, colchicine, and allopurinol. She had DAPHNE during the hospital admission and nephrology was consulted, held nephrotoxic drug, started aldactone. After DAPHNE resolve, slowly restart her BP meds. She was transferred to ICU for continual rehab. During the TCU stay, patient participated in physical/occupational therapy. We continue to managed her warfarin and check INR. She has severe cardiomyopathy requiring continue milrinone gtt. As for her gout, steroid was slowly tapered. She continues on colchicine and allopurinol. BP meds were adjusted for her low BP. Patient had outpatient/home milrinone drip arranged on August and discharged her home. I have discussed with son and family re: med changes, continual monitor BP as given BP meds, follow-ups, and INR checks. Discharge Exam - Head Exam Head Exam: ATRAUMATIC, NORMAL INSPECTION, NORMOCEPHALIC - Eye Exam Eye Exam: EOMI, Normal appearance, PERRL Pupil Exam: NORMAL ACCOMODATION - ENT Exam ENT Exam: Mucous Membranes Moist - Neck Exam Additional comments: supple, no jvd - Respiratory Exam Respiratory Exam: Clear to PA & Lateral, NORMAL BREATHING PATTERN. absent: Rales, Rhonchi, Wheezes - Cardiovascular Exam Cardiovascular Exam: REGULAR RHYTHM, +S1, +S2 - GI/Abdominal Exam GI & Abdominal Exam: Normal Bowel Sounds, Soft. absent: Distended, Firm, Guarding, Rigid, Tenderness - Extremities Exam Extremities exam: pedal pulses present Additional comments: slight pedal edema - Neurological Exam Neurological exam: Alert, Oriented x3 - Psychiatric Exam Psychiatric exam: Normal Affect, Normal Mood - Skin Skin Exam: Dry, Normal Color Discharge Plan - Discharge Medications Prescriptions: Allopurinol [Zyloprim] 100 mg PO BID #28 tab Colchicine [Colcrys] 0.6 mg PO DAILY #14 tablet Digoxin 0.125 mg PO Q48H #7 tab Famotidine [Pepcid] 20 mg PO HS #14 tab Furosemide [Lasix] 20 mg PO 1800 #14 tab Isosorbide Mononitrate ER [Imdur ER] 15 mg PO 0600 #14 tab Levothyroxine [Synthroid] 112 mcg PO DAILY #14 tab Losartan [Cozaar] 25 mg PO DAILY #14 tab Metoprolol Succinate [Toprol XL] 25 mg PO BRK #14 tab traMADol [Ultram] 50 mg PO Q8 #12 tab Warfarin [Coumadin] 3 mg PO QOTHERDAY #7 tab Warfarin [Coumadin] 5 mg PO QOTHERDAY #7 tab - Follow Up Plan Condition: STABLE Disposition: HOME/ ROUTINE Instructions: Preventing Falls in the Older Adult, Atrial Fibrillation (DC), Heart Failure, Adult (DC), High Blood Pressure (DC) Additional Instructions: 1. Follow up Dr Green, primary care doctor, on Tuesday to recheck INR 2. Follow up with Dr. Marcum, armament mechanic, for chronic kidney disease 3. Follow up with Dr Alcantara in 1 week. 4. Get daily weight. If it is increasing drastically, call primary care doctor for possibly increasing lasix. 5. Avoid NSAIDs such as motrin 6. Take medications as directed. 7. If you experience any new or worsening symptoms, please go directly to the nearest emergency room. 8. Take care and be well. Referrals: Juan Jose Alcantara MD [Staff Provider] - 1 Week Otoniel Marcum MD [Staff Provider] - 4 Week Boaz Green MD [Primary Care Provider] - 1 Week <Marvin Guerrero - Last Filed: 08/06/17 11:36> Provider - Provider Date of Admission: 07/19/17 20:48 Attending physician: Marvin Guerrero MD Primary care physician: Boaz Green MD Hospital Course - Lab Results Lab Results: Most Recent Lab Values WBC 10.5 10^3/ul (4.5-11.0) 07/21/17 07:00 RBC 3.51 10^6/uL (3.5-6.1) 07/21/17 07:00 Hgb 10.5 g/dL (12.0-16.0) L 07/21/17 07:00 Hct 31.7 % (36.0-48.0) L 07/21/17 07:00 MCV 90.3 fl (80.0-105.0) 07/21/17 07:00 MCH 29.9 pg (25.0-35.0) 07/21/17 07:00 MCHC 33.1 g/dl (31.0-37.0) 07/21/17 07:00 RDW 15.0 % (11.5-14.5) H 07/21/17 07:00 Plt Count 293 10^3/uL (120.0-450.0) 07/21/17 07:00 MPV 8.6 fl (7.0-11.0) 07/21/17 07:00 PT 34.6 SECONDS (9.4-12.5) H 08/04/17 06:30 INR 2.94 (0.93-1.08) H 08/04/17 06:30 APTT 27.7 Seconds (25.1-36.5) 07/21/17 07:00 Sodium 138 mmol/L (132-148) 08/01/17 06:20 Potassium 4.6 mmol/L (3.6-5.0) 08/01/17 06:20 Chloride 101 mmol/L (98-107) 08/01/17 06:20 Carbon Dioxide 28 mmol/L (21-33) 08/01/17 06:20 Anion Gap 14 (10-20) 08/01/17 06:20 BUN 41 mg/dL (7-21) H 08/01/17 06:20 Creatinine 1.3 mg/dl (0.7-1.2) H 08/01/17 06:20 Est GFR ( Amer) 47 08/01/17 06:20 Est GFR (Non-Af Amer) 39 08/01/17 06:20 Random Glucose 96 mg/dL (70-110) 08/01/17 06:20 Uric Acid 6.7 mg/dL (2.5-6.2) H 07/26/17 06:00 Calcium 8.9 mg/dL (8.4-10.5) 08/01/17 06:20 Iron 46 ug/dL (45-180) 07/21/17 07:00 TIBC 276 ug/dL (265-497) 07/21/17 07:00 % Saturation 17 % (20-55) L 07/21/17 07:00 Ferritin 193.0 ng/mL 07/21/17 07:00 Digoxin 0.9 ng/mL (0.8-2.0) 07/26/17 07:00 Attending/Attestation - Attestation I have personally seen and examined this patient.: Yes I have fully participated in the care of the patient.: Yes I have reviewed all pertinent clinical information, including history, physical exam and plan: Yes Notes (Text): 08/06/17 11:35 attending note; Patient seen and examined with resident in TCU. Patient is a 86 year old female with past medical history of systolic CHF s/p ICD on chronic milrinone therapy, afib on coumadin, hyothyroidism and CKD who presented with lower extremity pain, weakness with difficulty ambulating and chronic dyspnea. Currently getting physical therapy in TCU. history of A. fib;Continue Coumadin. INR is therapeutic. severe cardiomyopathy and ICD placement. Continue home milrinone. acute gout flareup. Improved significantly. Left knee and ankle swelling improved . on colchicine and allopurinol. outpatient/home milrinone drip arranged. We will discharge patient home today. case discussed with PMD in detail. Upon discharge the patient will follow-up with PMD .
== END 2017-08-05 14:06 | disposition home or self-care (01) | DRG 945 ==
LOC: TRCU 20:48
PROVIDERS: ADMIT Internal Medicine; ATTEND Internal Medicine
PROC: F07Z9FZ Gait Training/Functional Ambulation Treatment using Assistive, Adaptive, Supportive or Protective Equipment (ICD-10-PCS; principal; 2017-07-20)
PROC: F08Z4FZ Home Management Treatment using Assistive, Adaptive, Supportive or Protective Equipment (ICD-10-PCS; 2017-07-20)
DX: R53.1 Weakness (principal); N17.9 Acute kidney failure, unspecified; E87.3 Alkalosis; I50.22 Chronic systolic (congestive) heart failure; I42.0 Dilated cardiomyopathy; R26.2 Difficulty in walking, not elsewhere classified; M10.9 Gout, unspecified; E03.9 Hypothyroidism, unspecified; I48.2 Chronic atrial fibrillation; N18.3 Chronic kidney disease, stage 3 (moderate); E87.5 Hyperkalemia; M25.462 Effusion, left knee; I08.1 Rheumatic disorders of both mitral and tricuspid valves; Z66 Do not resuscitate; Z79.01 Long term (current) use of anticoagulants; Z95.810 Presence of automatic (implantable) cardiac defibrillator; Z87.891 Personal history of nicotine dependence

== ENCOUNTER 2017-08-28 22:32 | Inpatient (IN) | payer MEDICARE, SELFPAY ==
--- NOTE | 2017-08-28 23:04 | ED PDOC ---
Arrival/HPI - General Time Seen by Provider: 08/28/17 22:38 Historian: Patient - History of Present Illness Narrative History of Present Illness (Text): 08/28/17 23:03 Britt Barlow is an 87 year old female, whose past medical history includes chronic atrial fibrillation, hypothyroidism, cardiomyopathy, CHF, and pacemaker/ AICD on Milrinone drip, who presents to the emergency department brought in by EMS complaining of diffuse body aches. Patient states she has been experiencing diffuse body aches, greater in bilateral lower extremities, joint pain, and shortness of breath throughout the day. Patient states she has experienced similar symptoms in the past and was hospitalized. Patient denies any fever, chills, nausea, vomiting, diarrhea, urinary symptoms, headache, dizziness, or any other complaints. PMD: [place] Symptom Onset: Gradual Symptom Course: Unchanged Activities at Onset: Light Context: Home Past Medical History - Provider Review Nursing Documentation Reviewed: Yes - Infectious Disease Hx of Infectious Diseases: None - Tetanus Immunization Tetanus Immunization: Unknown - Cardiac Hx Congestive Heart Failure: Yes - Pulmonary Hx Chronic Obstructive Pulmonary Disease (COPD): Yes - Neurological HX Cerebrovascular Accident: Yes - HEENT Hx HEENT Disorder: Yes Hx Cataracts: Yes - Renal Hx Renal Disorder: No - Endocrine/Metabolic Hx Hypothyroidism: Yes - Hematological/Oncological Hx Blood Disorders: No - Integumentary Hx Dermatological Disorder: Yes (b/l pedal edema) - Musculoskeletal/Rheumatological Hx Falls: Yes - Gastrointestinal Hx Gastrointestinal Disorders: Yes (CHOLECYSTECTOMY,HERNIORHAPPHY) - Genitourinary/Gynecological Hx Reproductive Disorders: No - Psychiatric Hx Emotional Abuse: No Hx Physical Abuse: No Hx Substance Use: No - Surgical History Hx Cholecystectomy: Yes - Anesthesia Hx Anesthesia: Yes Hx Anesthesia Reactions: No Hx Malignant Hyperthermia: No - Suicidal Assessment Feels Threatened In Home Enviroment: No Family/Social History - Physician Review Nursing Documentation Reviewed: Yes Family/Social History: Unknown Family HX Smoking Status: Former Smoker Hx Alcohol Use: No Hx Substance Use: No Allergies/Home Meds Allergies/Adverse Reactions: Allergies codeine Allergy (Verified 08/28/17 22:47) SHORTNESS OF BREATH Penicillins Allergy (Verified 08/28/17 22:47) RASH Review of Systems - Physician Review All systems were reviewed & negative as marked: Yes - Review of Systems Constitutional: Normal. absent: Fevers Eyes: Normal ENT: Normal Respiratory: SOB Gastrointestinal: Normal. absent: Abdominal Pain, Diarrhea, Nausea, Vomiting Genitourinary Female: Normal Musculoskeletal: Arthralgias, Other (+diffuse body aches) Skin: Normal Neurological: Normal Endocrine: Normal Hemo/Lymphatic: Normal Psychiatric: Normal Physical Exam Vital Signs Reviewed: Yes Vital Signs Temp Pulse Resp BP Pulse Ox 08/29/17 02:17 137/86 08/29/17 00:39 99.0 F 70 18 137/70 100 Temperature: Afebrile Blood Pressure: Normal Pulse: Regular Respiratory Rate: Normal Appearance: Positive for: Well-Appearing, Non-Toxic, Comfortable Pain Distress: None Mental Status: Positive for: Alert and Oriented X 3 - Systems Exam Head: Present: Atraumatic, Normocephalic Pupils: Present: PERRL Extroacular Muscles: Present: EOMI Conjunctiva: Present: Normal Mouth: Present: Moist Mucous Membranes Neck: Present: Normal Range of Motion Respiratory/Chest: Present: Clear to Auscultation, Good Air Exchange. No: Respiratory Distress, Accessory Muscle Use Cardiovascular: Present: Regular Rate and Rhythm, Normal S1, S2. No: Murmurs Abdomen: No: Tenderness, Distention, Peritoneal Signs Back: Present: Normal Inspection Upper Extremity: Present: Tenderness (Bilatera upper extremity tenderness). No : Cyanosis, Edema Lower Extremity: Present: Tenderness (Bilatera lower extremity tenderness). No : Edema Neurological: Present: GCS=15, CN II-XII Intact, Speech Normal Skin: Present: Warm, Dry, Normal Color. No: Rashes Psychiatric: Present: Alert, Oriented x 3, Normal Insight, Normal Concentration Medical Decision Making ED Course and Treatment: 08/28/17 23:03 Impression: 87 year old female brought in for diffuse body aches. Plan: -- EKG -- Chest X-ray -- Labs, cardiac enzymes, BNP -- Reassess and disposition Prior Visits: Notes and results from previous visits were reviewed. On 07/15/2017, pt was seen in the Emergency department for worsening dyspnea on exertion and bilateral lower extremity pain. Pt was admitted to the hospital for further evaluation. Progress Notes: Reviewed EKG, electronic ventricular pacemaker at 72 bpm. 08/29/17 00:47 Chest X-ray reviewed, shows cardiomegaly. 08/29/17 01:21 Case discussed with phlebotomist medical lab assistant quality control clerk, who is aware and agrees with plan. 08/29/17 01:[address] Cabrales, who is aware and agrees with plan. Accepts pt in to hospitalist service. Pt admitted to [facility] for CHF and joint pain. - Lab Interpretations Lab Results: 08/29/17 00:33 08/29/17 00:33 Lab Results 08/29/17 00:33: Phosphorus 3.4, Magnesium 2.1 08/29/17 00:33: Sodium 132, Potassium 5.1 H, Chloride 99, Carbon Dioxide 22, Anion Gap 16, BUN 35 H, Creatinine 1.3 H, Est GFR ( Amer) 47, Est GFR ( Non-Af Amer) 39, Random Glucose 107, Calcium 9.4, Magnesium 2.1, Total Bilirubin 2.0 H, AST 32, ALT 32, Alkaline Phosphatase 160 H D, Lactate Dehydrogenase 638, Total Creatine Kinase 32 L, Troponin I 0.06, NT-Pro-B Natriuret Pep 8500 H, Total Protein 7.5, Albumin 3.7, Globulin 3.7, Albumin/ Globulin Ratio 1.0 L 08/29/17 00:33: PT 42.2 H, INR 3.61 H*, APTT 44.4 H 08/29/17 00:33: WBC 12.1 H, RBC 3.58, Hgb 11.1 L, Hct 32.7 L, MCV 91.3, MCH 31.0 , MCHC 33.9, RDW 15.8 H, Plt Count 227, MPV 10.8, Gran % 69.4 H, Lymph % (Auto) 17.0 L, [place] % (Auto) 12.9 H, Eos % (Auto) 0.3 L, Baso % (Auto) 0.4, Gran # 8.36 H, Lymph # (Auto) 2.1, [place] # (Auto) 1.6 H, Eos # (Auto) 0.0, Baso # (Auto ) 0.05 I have reviewed the lab results: Yes - RAD Interpretation Radiology Orders: 08/28/17 23:18 CHEST PORTABLE [RAD] Stat In Process Inspector: ED Physician - EKG Interpretation Interpreted by ED Physician: Yes Type: 12 lead EKG - Medication Orders Current Medication Orders: Allopurinol (Zyloprim) 100 mg PO BID YAA Last Admin: 08/31/17 17:42 Dose: 100 mg Colchicine (Colocrys) 0.6 mg PO BID [facility] Last Admin: 08/31/17 17:43 Dose: 0.6 mg Digoxin (Digoxin) 0.125 mg PO Q48H [facility] Last Admin: 08/31/17 14:48 Dose: 0.125 mg MAR Apical Pulse Rate Document 08/31/17 14:48 AE (Rec: 08/31/17 14:48 AE [place] [id number]) Apical Pulse Rate Apical Pulse Rate (60-90 beats/min) 71 Furosemide (Lasix) 20 mg IVP BID [facility] Last Admin: 08/31/17 17:43 Dose: 20 mg MAR Blood Pressure Document 08/31/17 17:43 AE (Rec: 08/31/17 17:43 AE [id number]) Blood Pressure Blood Pressure (100/60-150/90) 119/61 IVP Administration Document 08/31/17 17:43 AE (Rec: 08/31/17 17:43 AE [place] [id number]) Charges for Administration # of IVP Administrations 1 Milrinone Lactate/Dextrose (Primacor 20mg/100ml D5w) 100 mls @ 6.96 mls/hr IV .[id number] PRN; Protocol; 0.33 MCG/KG/MIN PRN Reason: TITRATE PER MD ORDER Last Admin: 08/31/17 17:47 Dose: 0.33 mcg/kg/min, 6.96 mls/hr eMAR Start Stop Document 08/31/17 17:47 AE (Rec: 08/31/17 17:50 AE [id number]) Intravenous Solution Start Date 08/31/17 Start Time 17:49 End Date 09/01/17 End time 05:00 Total Infusion Time 671 Titration Intervention Document 08/31/17 17:47 AE (Rec: 08/31/17 17:50 AE [id number]) Titration Intake Cumulative Intake (Rx) 400 Waste Amount 0 Container Volume 100 Titration Dosing Titration Dose 0.33 IV Rate 6.96 Intake/Decrease Started/Running Cumulative Dose 80 Isosorbide Mononitrate (Imdur Er) 30 mg PO DAILY [facility] Last Admin: 08/31/17 10:37 Dose: 30 mg Levothyroxine Sodium (Synthroid) 112 mcg PO 0600 [facility] Last Admin: 08/31/17 06:30 Dose: 112 mcg Losartan Potassium (Cozaar) 25 mg PO DAILY [facility] Last Admin: 08/31/17 10:35 Dose: 25 mg MAR Pulse and Blood Pressure Document 08/31/17 10:35 AE (Rec: 08/31/17 10:36 AE [id number]) Pulse Pulse Rate (60-90) 70 Blood Pressure Blood Pressure (100/60-150/90) 116/72 Metoprolol Succinate (Toprol Xl) 25 mg PO BRK [facility] Last Admin: 08/31/17 08:22 Dose: 25 mg MAR Pulse and Blood Pressure Document 08/31/17 08:22 AE (Rec: 08/31/17 08:23 AE [id number]) Pulse Pulse Rate (60-90) 72 Blood Pressure Blood Pressure (100/60-150/90) 122/60 Morphine Sulfate (Morphine) 0.5 mg IVP Q6H PRN PRN Reason: Pain, moderate (4-7) Pantoprazole Sodium (Protonix Ec Tab) 40 mg PO ACB [facility] Last Admin: 08/31/17 08:22 Dose: 40 mg Prednisone (Prednisone Tab) 40 mg PO DAILY [facility] Last Admin: 08/31/17 10:36 Dose: 40 mg Discontinued Medications Furosemide (Lasix) 20 mg IVP ONCE ONE Stop: 08/29/17 01:39 Last Admin: 08/29/17 02:17 Dose: 20 mg MAR Blood Pressure Document 08/29/17 02:17 (Rec: 08/29/17 02:18 [id number]) Blood Pressure Blood Pressure (100/60-150/90) 137/86 IVP Administration Document 08/29/17 02:17 (Rec: 08/29/17 02:18 [id number]) Charges for Administration # of IVP Administrations 1 Furosemide (Lasix) 40 mg IVP DAILY [facility] Last Admin: 08/29/17 11:04 Dose: 40 mg MAR Blood Pressure Document 08/29/17 11:04 MJO (Rec: 08/29/17 11:04 [id number] Blood Pressure Blood Pressure (100/60-150/90) 140/70 IVP Administration Document 08/29/17 11:04 MJO (Rec: 08/29/17 11:04 O [id number]) Charges for Administration # of IVP Administrations 1 Furosemide (Lasix) 40 mg IVP STAT STA Stop: 08/29/17 17:30 Last Admin: 08/29/17 17:39 Dose: 40 mg MAR Blood Pressure Document 08/29/17 17:39 MJO (Rec: 08/29/17 17:39 MJO [id number]) Blood Pressure Blood Pressure (100/60-150/90) 139/63 IVP Administration Document 08/29/17 17:39 MJO (Rec: 08/29/17 17:39 MJO [id number]) Charges for Administration # of IVP Administrations 1 Morphine Sulfate (Morphine) 1 mg IVP STAT STA Stop: 08/29/17 00:38 Last Admin: 08/29/17 02:12 Dose: 1 mg MAR Pain Assessment Document 08/29/17 02:12 SH (Rec: 08/29/17 02:12 [id number]) Pain Reassessment Is this a pain reassessment? No Sleep Is patient sleeping during reassessment? No Presence of Pain Presence of Pain Yes Pain Scale Used Pain Scale Used Numeric Location Left, Right or Bilateral Bilateral Pain Location Body Site Knee IVP Administration Document 08/29/17 02:12 SH (Rec: 08/29/17 02:12 [id number]) Charges for Administration # of IVP Administrations 1 Re-Assess: MAR Pain Assessment Document 08/29/17 03:12 FG (Rec: 08/29/17 05:10 FG [id number]) Pain Reassessment Is this a pain reassessment? Yes Sleep Is patient sleeping during reassessment? No Presence of Pain Presence of Pain Yes Pain Scale Used Pain Scale Used Numeric Location Upper or Lower Lower Pain Location Body Site Leg Description Description Constant Intensity of Pain at present 9 Pain Behavior Moaning Crying Guarding Irritability Aggravating Factors Changing Position Alleviating Factors/Management Medication Techniques Alleviating Factors Medication Pain not relieved and LIP/MD was No notified Morphine Sulfate (Morphine) 0.5 mg IVP Q6H PRN PRN Reason: Pain, moderate (4-7) Last Admin: 08/29/17 11:05 Dose: 0.5 mg MAR Pain Assessment Document 08/29/17 11:05 MJO (Rec: 08/29/17 11:05 O [id number]) Pain Reassessment Is this a pain reassessment? No Sleep Is patient sleeping during reassessment? No Presence of Pain Presence of Pain Yes Pain Scale Used Pain Scale Used Numeric Location Pain Location Body Site Arm Leg Ankle Foot Generalized Description Description Intermittent Intensity of Pain at present 10 Pain Behavior Facial Grimacing Screaming Aggravating Factors ADL's Changing Position Alleviating Factors/Management Medication Techniques Alleviating Factors Medication IVP Administration Document 08/29/17 11:05 MJO (Rec: 08/29/17 11:05 [facility] [id number]) Charges for Administration # of IVP Administrations 1 Re-Assess: MAR Pain Assessment Document 08/29/17 12:05 MJO (Rec: 08/29/17 12:13 MJO [id number]) Pain Reassessment Is this a pain reassessment? Yes Sleep Is patient sleeping during reassessment? Yes Pantoprazole Sodium (Protonix Inj) 40 mg IVP DAILY YAA Last Admin: 08/29/17 11:03 Dose: 40 mg IVP Administration Document 08/29/17 11:03 MJ (Rec: 08/29/17 11:03 O [id number]) Charges for Administration # of IVP Administrations 1 Prednisone (Prednisone Tab) 40 mg PO ONCE ONE Stop: 08/29/17 09:56 Last Admin: 08/29/17 11:04 Dose: 40 mg Sodium Polystyrene Sulfonate (Kayexalate Susp) 15 gm PO STAT STA Stop: 08/29/17 01:52 Last Admin: 08/29/17 02:11 Dose: 15 gm - Scribe Statement The provider has reviewed the documentation as recorded by the Shaila Ling Provider Scribe Attestation: All medical record entries made by the Dewayneibgwen were at my direction and personally dictated by me. I have reviewed the chart and agree that the record accurately reflects my personal performance of the history, physical exam, medical decision making, and the department course for this patient. I have also personally directed, reviewed, and agree with the discharge instructions and disposition. Disposition/Present on Arrival - Present on Arrival Any Indicators Present on Arrival: No History of DVT/PE: No History of Uncontrolled Diabetes: No Urinary Catheter: No History Surgical Site Infection Following: None - Disposition Have Diagnosis and Disposition been Completed?: Yes Diagnosis: Congestive heart failure, Primary osteoarthritis of left knee Disposition: HOSPITALIZED Disposition Time: 01:20 Patient Problems: Current Active Problems Problem Status Onset Hyperuricemia Chronic Condition: GOOD
[2017-08-28 23:14] VITALS: BMI 25.7
[2017-08-29] MEDS ORDERED: Morphine 2 mg/ml ISec IVP STA (00:37)
[2017-08-29 00:55] LABS: BASO # 0.05 K/mm3 (0.0-2.0); BASO % 0.4 % (0.0-3.0); EOS % 0.3 % (1.5-5.0); GRAN # 8.36 (1.4-6.5); GRAN % 69.4 % (50.0-68.0); HEMOGLOBIN 11.1 g/dL (12.0-16.0); LYMPH # 2.1 (1.2-3.4); MEAN CELL VOLUME 91.3 fl (80.0-105.0); MEAN CORPUSCULAR HGB CONC 33.9 g/dl (31.0-37.0); MEAN PLATELET VOLUME 10.8 fl (7.0-11.0); MONO # 1.6 (0.1-0.6); MONO % 12.9 % (1.0-6.0); RBC 3.58 10^6/uL (3.5-6.1); RED CELL DISTRIBUTION WIDTH 15.8 % (11.5-14.5); WHITE BLOOD COUNT 12.1 10^3/ul (4.5-11.0)
[2017-08-29 01:07] LABS: PARTIAL THROMBOPLASTIN TIME 44.4 Seconds (25.1-36.5); PROTHROMBIN TIME 42.2 SECONDS (9.4-12.5)
[2017-08-29 01:09] LABS: INR 3.61 (0.93-1.08)
[2017-08-29 01:11] LABS: TROPONIN I 0.06 ng/mL
[2017-08-29 01:17] LABS: ALBUMIN 3.7 g/dL (3.0-4.8); CALCIUM 9.4 mg/dL (8.4-10.5)
[2017-08-29] MEDS ORDERED: Sod Polystyrene Sulf 15 gm/60 ml Susp PO STA (01:51)
--- NOTE | 2017-08-29 02:02 | CP.PCM.HP ---
<Adrien Chang - Last Filed: 09/03/17 03:00> History of Present Illness - History of Present Illness History of Present Illness: 87 year female with a past medical history of CHF s/p AICD (last echo EF 8%) on milrinone drip, atrial fibrillation, hypothyroidism, and gout who comes in today complaining of diffuse body aches that have been occurring for the past couple of weeks. The patient reports shortness of breath in conjunction with her pain. She reports recently getting injections by an Orthopedist but can't remember the name or exactly when. The patient describes the pain as throbbing in a nature that is throughout the body. Patient also report recently having her Lasix changed by her PMD to 20mg PO Daily The patient denies any chest pain , fevers, chill, changes in vision, dizziness, syncopal episodes, vomiting, nausea, abdominal pain, or any other complaints. Past medical history: systolic heart failure with ICD and on milrinone drip, Atrial fibrillation, hypothyroidism, gout Past surgical history: laminectomy, cholecystectomy, hernia repair, icd placement Allergies: Codeine (dsypne), penicillin (rash) Social : Former smoker (quit in 1990), Denies illicit drug use or alcohol Family history: heart disease father PMD: [place] Present on Admission - Present on Admission Any Indicators Present on Admission: No Review of Systems - Constitutional Constitutional: absent: Daytime Sleepiness, Headache, Snoring - EENT Eyes: absent: Blurred Vision, Discharge, Loss of Peripheral Vision Ears: absent: Ear Discharge, Dizziness Nose/Mouth/Throat: absent: Nasal Congestion, Nose Pain, Bleeding Gums, Halitosis , Odynophagia - Cardiovascular Cardiovascular: Leg Edema, Pedal Edema. absent: Chest Pain, Diaphoresis, Palpitations, Syncope - Respiratory Respiratory: absent: Cough, Dyspnea, Hemoptysis, Stridor, Pain on Inspiration - Gastrointestinal Gastrointestinal: absent: Belching, Dyspepsia, Loose Stools, Melena, Nausea, Vomiting - Musculoskeletal Musculoskeletal: Arthralgias, Joint Swelling, Myalgias. absent: Abnormal Gait, Limited Range of Motion, Neck Pain, Stiffness - Integumentary Integumentary: absent: Bleeding Lesions, Changing Lesions, New Lesions, Rash, Unusual Bruising - Neurological Neurological: absent: Burning Sensations, Numbness, Lack of Coordination, Loss of Vision, Restless Legs, Tremor - Psychiatric Psychiatric: absent: Abnormal Sleep Pattern, Behavioral Changes, Depression - Endocrine Endocrine: absent: Polydipsia, Polyuria Past Patient History - Infectious Disease Hx of Infectious Diseases: None - Tetanus Immunizations Tetanus Immunization: Unknown - Past Medical History & Family History Past Medical History?: Yes - Past Social History Smoking Status: Former Smoker - CARDIAC Hx Congestive Heart Failure: Yes - PULMONARY Hx Chronic Obstructive Pulmonary Disease (COPD): Yes - NEUROLOGICAL HX Cerebrovascular Accident: Yes - HEENT Hx HEENT Problems: Yes Hx Cataracts: Yes - RENAL Hx Chronic Kidney Disease: No - ENDOCRINE/METABOLIC Hx Hypothyroidism: Yes - HEMATOLOGICAL/ONCOLOGICAL Hx Blood Disorders: No - INTEGUMENTARY Hx Dermatological Problems: Yes (b/l pedal edema) - MUSCULOSKELETAL/RHEUMATOLOGICAL Hx Falls: Yes - GASTROINTESTINAL Hx Gastrointestinal Disorders: Yes (CHOLECYSTECTOMY,HERNIORHAPPHY) - GENITOURINARY/GYNECOLOGICAL Hx Reproductive Disorders: No - PSYCHIATRIC Hx Emotional Abuse: No Hx Physical Abuse: No Hx Substance Use: No - SURGICAL HISTORY Hx Cholecystectomy: Yes - ANESTHESIA Hx Anesthesia: Yes Hx Anesthesia Reactions: No Hx Malignant Hyperthermia: No Meds Allergies/Adverse Reactions: Allergies Allergy/AdvReac Type Severity Reaction Status Date / Time codeine Allergy SHORTNESS Verified 08/28/17 22:47 OF BREATH Penicillins Allergy RASH Verified 08/28/17 22:47 Physical Exam - Head Exam Head Exam: ATRAUMATIC, NORMAL INSPECTION, NORMOCEPHALIC - Eye Exam Eye Exam: EOMI, Normal appearance, PERRL Pupil Exam: NORMAL ACCOMODATION - ENT Exam ENT Exam: Mucous Membranes Moist - Respiratory Exam Respiratory Exam: Decreased Breath Sounds, NORMAL BREATHING PATTERN. absent: Prolonged Expiratory Phase, Respiratory Distress - Cardiovascular Exam Cardiovascular Exam: REGULAR RHYTHM, +S1, +S2 - GI/Abdominal Exam GI & Abdominal Exam: Normal Bowel Sounds, Soft. absent: Organomegaly, Tenderness - Extremities Exam Extremities exam: Positive for: pedal edema. Negative for: full ROM - Back Exam Back exam: NORMAL INSPECTION. absent: CVA tenderness (R), paraspinal tenderness - Neurological Exam Neurological exam: Alert, CN II-XII Intact, Oriented x3 - Psychiatric Exam Psychiatric exam: Normal Affect, Normal Mood - Skin Skin Exam: Dry, Intact Results - Vital Signs Recent Vital Signs: Last Vital Signs Temp 99.0 F 08/29/17 00:39 Pulse 70 08/29/17 00:39 Resp 18 08/29/17 00:39 BP 137/70 08/29/17 00:39 Pulse Ox 100 08/29/17 00:39 - Labs Result Diagrams: 08/29/17 00:33 08/29/17 00:33 Labs: Laboratory Results - last 24 hr 08/29/17 08/29/17 08/29/17 00:33 00:33 00:33 WBC 12.1 H RBC 3.58 Hgb 11.1 L Hct 32.7 L MCV 91.3 MCH 31.0 MCHC 33.9 RDW 15.8 H Plt Count 227 MPV 10.8 Gran % 69.4 H Lymph % (Auto) 17.0 L [place] % (Auto) 12.9 H Eos % (Auto) 0.3 L Baso % (Auto) 0.4 Gran # 8.36 H Lymph # (Auto) 2.1 [place] # (Auto) 1.6 H Eos # (Auto) 0.0 Baso # (Auto) 0.05 PT 42.2 H INR 3.61 H* APTT 44.4 H Sodium 132 Potassium 5.1 H Chloride 99 Carbon Dioxide 22 Anion Gap 16 BUN 35 H Creatinine 1.3 H Est GFR ( Amer) 47 Est GFR (Non-Af Amer) 39 Random Glucose 107 Calcium 9.4 Magnesium 2.1 Total Bilirubin 2.0 H AST 32 ALT 32 Alkaline Phosphatase 160 H D Lactate Dehydrogenase 638 Total Creatine Kinase 32 L Troponin I 0.06 NT-Pro-B Natriuret Pep 8500 H Total Protein 7.5 Albumin 3.7 Globulin 3.7 Albumin/Globulin Ratio 1.0 L Assessment & Plan - Assessment and Plan (Free Text) Assessment: 87 year old female with a history of systolic heart failure with icd and on milrinone drip, atrial fibrillation, hypothyroidism, and gout who is being admitted for diffuse myalgias and arthralgias. Plan: 1.Diffuse arthralgias and myalgias -Pain management: IV Morphine PRN -Patient receive injections from Orthopedist. Confirm doctor in the A.M. 2.Elevated BNP -BNP 8500 upon admission -Lasix given in the E.D. -Cardiology consulted. Help appreciated. 3. DAPHNE -Creatinine 1.3 upon admission -Nephrology consulted. Help appreciated. -IV fluids not given due to patient's poor cardiac function. 4. Indeterminate Troponin -Troponin .06 upon admission -EKG shows some PVC's -Trend troponins and repeat EKG -Cardiology consulted. Help appreciated. 5.Sytolic CHF -Confirm home medications and restart. 6. Hypothyroidism -Confirm home medications and restart 7.Atrial fibrillation -Confirm home medications and restart. PPX -Protonix -Patient on Coumadin. Case discussed with Attending, Dr. Cabrales. Adrien Chang, PGY-1 <Devi Cabrales - Last Filed: 09/03/17 20:35> Results - Vital Signs Recent Vital Signs: Last Vital Signs Temp 98 F 09/03/17 18:00 Pulse 82 09/03/17 18:00 Resp 16 09/03/17 18:00 BP 113/73 09/03/17 18:08 Pulse Ox 100 09/03/17 18:00 - Labs Result Diagrams: 09/03/17 07:00 09/03/17 07:00 Labs: Laboratory Results - last 24 hr 09/03/17 09/03/17 09/03/17 06:00 07:00 07:00 WBC 13.1 H RBC 3.29 L Hgb 10.0 L Hct 30.2 L MCV 91.8 D MCH 30.4 MCHC 33.1 RDW 15.0 H Plt Count 243 MPV 10.1 Gran % 79.6 H Lymph % (Auto) 14.2 L [place] % (Auto) 6.1 H Eos % (Auto) 0.1 L Baso % (Auto) 0.0 Gran # 10.39 H Lymph # (Auto) 1.9 [place] # (Auto) 0.8 H Eos # (Auto) 0.0 Baso # (Auto) 0.00 PT 19.6 H INR 1.69 H APTT Sodium 134 Potassium 4.1 Chloride 96 L Carbon Dioxide 33 Anion Gap 10 BUN 42 H Creatinine 1.2 Est GFR ( Amer) 52 Est GFR (Non-Af Amer) 43 Random Glucose 101 Calcium 8.7 Total Bilirubin 0.6 AST 62 H ALT 60 H Alkaline Phosphatase 118 Total Protein 6.1 Albumin 2.9 L Globulin 3.2 Albumin/Globulin Ratio 0.9 L 09/03/17 07:00 WBC RBC Hgb Hct MCV MCH MCHC RDW Plt Count MPV Gran % Lymph % (Auto) [place] % (Auto) Eos % (Auto) Baso % (Auto) Gran # Lymph # (Auto) [place] # (Auto) Eos # (Auto) Baso # (Auto) PT INR APTT 28.1 Sodium Potassium Chloride Carbon Dioxide Anion Gap BUN Creatinine Est GFR ( Amer) Est GFR (Non-Af Amer) Random Glucose Calcium Total Bilirubin AST ALT Alkaline Phosphatase Total Protein Albumin Globulin Albumin/Globulin Ratio Attending/Attestation - Attestation I have personally seen and examined this patient.: Yes I have fully participated in the care of the patient.: Yes I have reviewed all pertinent clinical information: Yes
[2017-08-29] MEDS: Milrinone 20mg/100ml D5W 100 ML IV PRN ×2 (02:13→15:18)
[2017-08-29] MEDS: Levothyroxine 112 MCG TAB PO SCH (05:41)
[2017-08-29] MEDS: Metoprolol Succinate 25 mg XL Tab PO SCH (08:00)
--- NOTE | 2017-08-29 09:16 | CARD ---
APPROVED REPORT EKG Measurement Heart [id number] <Conclusion> Electronic ventricular pacemaker
[2017-08-29 09:24] LABS: FREE T4 1.68 ng/dL (0.78-2.19)
--- NOTE | 2017-08-29 09:44 | CON ---
DATE: 08/29/2017 CONSULTATION INDICATIONS: Shortness of breath, decompensated CHF, diffuse body pain, possible gout. HISTORY OF PRESENT ILLNESS: This is an 87-year-old woman, well known to me, admitted with diffuse body aches and shortness of breath and edema last night. She was seen in the Emergency Room and admitted to telemetry. This morning, she complains of aches especially in her lower extremities. She has previously been admitted with acute gout. She thinks that the symptoms have recurred. There was increased edema of her lower extremities as well. There was some increased shortness of breath. There was no chest pain, orthopnea, PND, syncope, palpitations, fever, chills, cough, sputum production, hemoptysis, abdominal pain, nausea, vomiting, diarrhea, constipation, melena. PAST MEDICAL HISTORY: Her past medical history is complex. She has congestive cardiomyopathy with severe LV dysfunction, chronic stage IV congestive heart failure with multiple hospital admissions. On echocardiography, she has severe LV dysfunction with severe MR, TR and pulmonary hypertension. She has chronic AFib, on warfarin. She has a defibrillator. She has diagnosis of gout, prior stroke, hypothyroidism. She has had gallbladder surgery. She is a remote smoker. MEDICATIONS AT THE TIME OF ADMISSION: Include colchicine, warfarin, losartan, digoxin, Imdur, Lasix, Pepcid, Synthroid, metoprolol, Ultram, allopurinol. ALLERGIES: SHE NOTES ALLERGIES TO CODEINE AND PENICILLIN. SOCIAL HISTORY: She lives at home. Her daughters assist her. MEDICATIONS: She is on milrinone infusion. She has a visiting nurse and her daughters assist her. She does not smoke. She does not drink. FAMILY HISTORY: Noncontributory. REVIEW OF SYSTEMS: Ten point review of systems is otherwise unremarkable except as noted above. PHYSICAL EXAMINATION: GENERAL: She is a well-developed, elderly woman, lying flat bed on telemetry, in no acute distress. VITAL SIGNS: Notable for ventricular pacing at 70 beats per minute. She is afebrile, blood pressure 142/71, respirations 18-21 with O2 sats 92-94%. HEENT: Reveals neck vein distention. No thyromegaly. No carotid bruit. Mucous membranes moist. Conjunctivae pink. NECK: Supple. LUNGS: Lung rkaus, scattered rhonchi. HEART: Examination of the heart revealed a regular rhythm. Normal first and second heart sounds. There is a systolic murmur along the left sternal border. The PMI is laterally displaced. ABDOMEN: Soft. Bowel sounds present. No mass, organomegaly, tenderness, rebound or guarding. No CVA tenderness. No palpable abdominal aortic aneurysm. EXTREMITY: Revealed diffuse tenderness on touching the skin. There is moderate edema. No obvious cellulitis. NEUROLOGICAL: She is awake, alert and oriented. PSYCHIATRIC: Normal as to mood and affect. SKIN: Warm and dry. LABORATORY DATA AND IMAGING: The chest x-ray is a portable study. It is not interpreted. There is no cardiomegaly. Increased vascular markings, but no infiltrates or effusion. There is a defibrillator in place. It is not yet interpreted by the radiologist. The EKG demonstrates a ventricular paced rhythm with atrial fibrillation and 1 PVC. White count 12,100, hemoglobin 11.1, hematocrit 32.7, platelet count normal, PT 42.2, INR 3.61, PTT 44.4. Electrolytes notable for potassium of 5.1, sodium 132, BUN 35, creatinine 1.3, calcium 9.4, magnesium 2.1, bilirubin 2. AST, ALT are normal. Alk phos 160, CK 32. Two troponins are negative. BNP 85,000. IMPRESSION: Britt Barlow is an 87-year-old woman with severe left ventricular dysfunction, on home milrinone with chronic stage IV congestive heart failure, admitted with increasing symptoms of edema, shortness of breath and diffuse pain especially in the legs, possibly related to exacerbation of acute gout. At this time, she is admitted to telemetry. I will review her old records. I will continue medications including colchicine, losartan, digoxin, isosorbide, IV Lasix, milrinone infusion, Protonix, Synthroid, metoprolol, allopurinol. We will monitor inputs and outputs. Check stool for occult blood. Administer analgesics. She will be reevaluated for acute gout. She will have a renal consultation. We will monitor electrolytes, PT/INR and CBC. I will follow along with you. I will make additional recommendations based on her clinical course. Juan Jose Alcantara MD [facility] # [id number] YEHUDA
--- NOTE | 2017-08-29 10:02 | RAD ---
HISTORY: sob COMPARISON: 07/15/2017. FINDINGS: The right IJV line terminates at the cavoatrial junction. LUNGS: There is moderate pulmonary venous congestion. PLEURA: No significant pleural effusion identified, no pneumothorax apparent. CARDIOVASCULAR: There is severe cardiomegaly. There is stable position of left-sided permanent pacing device the OSSEOUS STRUCTURES: No significant abnormalities. VISUALIZED UPPER ABDOMEN: Normal. OTHER FINDINGS: None. IMPRESSION: Severe cardiomegaly and moderate pulmonary venous congestion. No acute findings.
[2017-08-29] MEDS ORDERED: Morphine 2 mg/ml ISec IVP PRN (10:34)
[2017-08-29 12:49] LABS: URIC ACID 6.6 mg/dL (2.5-6.2)
[2017-08-29 13:01] LABS: TROPONIN I 0.06 ng/mL
[2017-08-29] MEDS: Digoxin 125 mcg (0.125 mg) Tab PO SCH (15:17)
--- NOTE | 2017-08-29 19:54 | CP.PCM.CON ---
History of Present Illness - History of Present Illness History of Present Illness: The patient is an 87-year-old female with past medical history of CHF with severe systolic dysfunction, status post AICD placement on home milrinone, atrial fibrillation, hypothyroidism and gout, presented to ED with increased leg swelling, shortness of breath and arthralgias since past few days, nephrology being consulted for renal insufficiency; Patient reports that symptoms started just 2 days ago although sister who is present with her thinks its been going on longer; patient admits to decreased urination lately, only having to urinate 2 times per night (usually about 4 times per night); weights also increased lately, at 152 lbs at visit to PMD 11 days ago, currently at 162 lbs; Patient was admitted last month with CHF exacerbation as well as acute gout flare involving L knee and ankle with arthrocentesis fluid analysis confirming gout; Review of Systems - Constitutional Constitutional: Weight Gain - EENT Nose/Mouth/Throat: absent: Dysphagia - Cardiovascular Cardiovascular: As Per HPI - Respiratory Respiratory: Dyspnea - Gastrointestinal Gastrointestinal: absent: Diarrhea, Vomiting - Genitourinary Genitourinary: As Per HPI - Musculoskeletal Musculoskeletal: Arthralgias Past Patient History - Infectious Disease Hx of Infectious Diseases: None - Tetanus Immunizations Tetanus Immunization: Unknown - Past Medical History & Family History Past Medical History?: Yes - Past Social History Smoking Status: Never Smoked - CARDIAC Hx Congestive Heart Failure: Yes - PULMONARY Hx Chronic Obstructive Pulmonary Disease (COPD): Yes - NEUROLOGICAL HX Cerebrovascular Accident: Yes - HEENT Hx HEENT Problems: Yes Hx Cataracts: Yes - RENAL Hx Chronic Kidney Disease: No - ENDOCRINE/METABOLIC Hx Hypothyroidism: Yes - HEMATOLOGICAL/ONCOLOGICAL Hx Blood Disorders: No - INTEGUMENTARY Hx Dermatological Problems: Yes (b/l pedal edema) - MUSCULOSKELETAL/RHEUMATOLOGICAL Hx Falls: Yes - GASTROINTESTINAL Hx Gastrointestinal Disorders: Yes (CHOLECYSTECTOMY,HERNIORHAPPHY) - GENITOURINARY/GYNECOLOGICAL Hx Genitourinary Disorders: No - PSYCHIATRIC Hx Emotional Abuse: No Hx Physical Abuse: No Hx Substance Use: No - SURGICAL HISTORY Hx Cholecystectomy: Yes - ANESTHESIA Hx Anesthesia: Yes Hx Anesthesia Reactions: No Hx Malignant Hyperthermia: No Meds Allergies/Adverse Reactions: Allergies Allergy/AdvReac Type Severity Reaction Status Date / Time codeine Allergy SHORTNESS Verified 08/28/17 22:47 OF BREATH Penicillins Allergy RASH Verified 08/28/17 22:47 - Medications Medications: Current Medications Allopurinol (Zyloprim) 100 mg PO BID [facility] Last Admin: 08/29/17 17:37 Dose: 100 mg Colchicine (Colocrys) 0.6 mg PO BID [facility] Last Admin: 08/29/17 17:37 Dose: 0.6 mg Digoxin (Digoxin) 0.125 mg PO Q48H [facility] Last Admin: 08/29/17 15:17 Dose: 0.125 mg Furosemide (Lasix) 40 mg IVP DAILY [facility] Last Admin: 08/29/17 11:04 Dose: 40 mg Milrinone Lactate/Dextrose (Primacor 20mg/100ml D5w) 100 mls @ 6.96 mls/hr IV .[id number] PRN; Protocol; 0.33 MCG/KG/MIN PRN Reason: TITRATE PER MD ORDER Last Admin: 08/29/17 15:18 Dose: 0.33 mcg/kg/min, 6.96 mls/hr Isosorbide Mononitrate (Imdur Er) 30 mg PO DAILY [facility] Last Admin: 08/29/17 11:04 Dose: 30 mg Levothyroxine Sodium (Synthroid) 112 mcg PO 0600 [facility] Last Admin: 08/29/17 05:41 Dose: 112 mcg Losartan Potassium (Cozaar) 25 mg PO DAILY [facility] Last Admin: 08/29/17 11:04 Dose: 25 mg Metoprolol Succinate (Toprol Xl) 25 mg PO BRK [facility] Last Admin: 08/29/17 08:00 Dose: Not Given Morphine Sulfate (Morphine) 0.5 mg IVP Q6H PRN PRN Reason: Pain, moderate (4-7) Pantoprazole Sodium (Protonix Ec Tab) 40 mg PO ACB [facility] Prednisone (Prednisone Tab) 40 mg PO DAILY [facility] Results - Vital Signs Recent Vital Signs: Last Vital Signs Temp 98.3 F 08/29/17 17:50 Pulse 69 08/29/17 17:50 Resp 19 08/29/17 17:50 BP 134/63 08/29/17 17:50 Pulse Ox 100 08/29/17 06:00 - Labs Result Diagrams: 08/29/17 00:33 08/29/17 00:33 Labs: Laboratory Results - last 24 hr 08/29/17 08/29/17 08/29/17 07:06 07:06 08:30 Uric Acid Troponin I 0.07 Procalcitonin 0.49 Free T4 1.68 TSH 3rd Generation 7.48 H 08/29/17 11:48 Uric Acid 6.6 H Troponin I 0.06 Procalcitonin Free T4 TSH 3rd Generation - Imaging and Cardiology Chest x-ray Status: Image reviewed by me Additional comment: some increased pulm vascular congestion Assessment & Plan (1) CKD (chronic kidney disease), stage III Assessment and Plan: Non-proteinuric kidney disease of cardiorenal etiology; renal function actually around baseline with eGFR in high 30's; very mild hyperkalemia seen; otherwise, has gained close to 10 lbs over past 1-2 weeks possibly due to misunderstanding regarding dosing of diuretics (only taking lasix once a day?); Goals of care are to optimize cardiac status and avoid nephrotoxic agents; -f/u cardiology recs -recommend twice daily dosing of lasix (due to relatively short duration of action); 20 mg IV bid should suffice; -should continue losartan for cardiac optimization; -Should absolutely avoid all NSAIDS as they will cause loss of renal autoregulation and precipitate DAPHNE and worsening heart failure; Status: Chronic (2) HFrEF (heart failure with reduced ejection fraction) Assessment and Plan: Acutely decompensated systolic CHF; remains on milrinone drip; in the setting of decreased diuretic dosing as well as possibly dietary indiscretion; -continue B-blockers, ARB per cardiology; -see above regarding diuretics; -daily weights; Status: Acute Priority: High (3) Hyperuricemia Assessment and Plan: With current gout flare affecting L knee and ankle; already on allopurinol 100 mg bid; uric acid slightly above goal (should be < 6.0); -continue same dose of allopurinol for now; should wait until gout flare resolved before increasing dose further; -need to be cautious with increasing colchicine dose frequency with renal insufficiency; monitor for GI side effects; recommend to continue PO steroids instead; -NO NSAIDS Status: Chronic (4) Hyperkalemia Assessment and Plan: Mild; placing on 2g daily potassium dietary restriction; Status: Acute
--- NOTE | 2017-08-29 22:43 | CARD ---
APPROVED REPORT EKG Measurement Heart [id number] <Conclusion> Electronic ventricular pacemaker Underlying rhythm is A Fib
[2017-08-30] MEDS: Milrinone 20mg/100ml D5W 100 ML IV PRN ×2 (06:02→22:54)
[2017-08-30] MEDS: Levothyroxine 112 MCG TAB PO SCH (06:04)
[2017-08-30 07:02] LABS: BASO # 0.02 K/mm3 (0.0-2.0); BASO % 0.2 % (0.0-3.0); GRAN # 9.4 (1.4-6.5); GRAN % 81.2 % (50.0-68.0); HEMOGLOBIN 9.7 g/dL (12.0-16.0); LYMPH # 1.4 (1.2-3.4); MEAN CORPUSCULAR HEMOGLOBIN 30.3 pg (25.0-35.0); MEAN CORPUSCULAR HGB CONC 33.7 g/dl (31.0-37.0); MEAN PLATELET VOLUME 10.6 fl (7.0-11.0); MONO # 0.8 (0.1-0.6); MONO % 6.6 % (1.0-6.0); RBC 3.2 10^6/uL (3.5-6.1); RED CELL DISTRIBUTION WIDTH 15.3 % (11.5-14.5); WHITE BLOOD COUNT 11.6 10^3/ul (4.5-11.0)
[2017-08-30 07:16] LABS: ALB/GLOB RATIO 0.8 (1.1-1.8); CALCIUM 8.7 mg/dL (8.4-10.5); URIC ACID 6.7 mg/dL (2.5-6.2)
[2017-08-30 07:19] LABS: PROTHROMBIN TIME 50.2 SECONDS (9.4-12.5)
[2017-08-30 07:28] LABS: INR 4.24 (0.93-1.08)
--- NOTE | 2017-08-30 08:38 | CP.PCM.PN ---
Subjective - Date & Time of Evaluation Date of Evaluation: 08/30/17 Time of Evaluation: 07:00 - Subjective Subjective: Doing OK. Still LE pain and IVY. No CP. V/S noted. V. Paced. PE: Lungs: rhonchi Cor.: S1S2 Abd.: soft Ext: + edema Neuro.: alert I/O: 410/200 recorded Labs noted: INR= 4.24 BC X1 NG at 24 hrs. Objective - Vital Signs/Intake and Output Vital Signs (last 24 hours): Temp Pulse Resp BP Pulse Ox 97.9 F 73 19 111/58 L 100 08/30/17 06:00 08/30/17 06:02 08/30/17 06:00 08/30/17 06:02 08/30/17 06:00 Intake and Output: 08/30/17 08/30/17 06:59 18:59 Intake Total 310 Output Total 200 Balance 110 - Medications Medications: Current Medications Allopurinol (Zyloprim) 100 mg PO BID [facility] Last Admin: 08/29/17 17:37 Dose: 100 mg Colchicine (Colocrys) 0.6 mg PO BID [facility] Last Admin: 08/29/17 17:37 Dose: 0.6 mg Digoxin (Digoxin) 0.125 mg PO Q48H [facility] Last Admin: 08/29/17 15:17 Dose: 0.125 mg Furosemide (Lasix) 40 mg IVP DAILY [facility] Last Admin: 08/29/17 11:04 Dose: 40 mg Milrinone Lactate/Dextrose (Primacor 20mg/100ml D5w) 100 mls @ 6.96 mls/hr IV .[id number] PRN; Protocol; 0.33 MCG/KG/MIN PRN Reason: TITRATE PER MD ORDER Last Admin: 08/30/17 06:02 Dose: 0.33 mcg/kg/min, 6.96 mls/hr Isosorbide Mononitrate (Imdur Er) 30 mg PO DAILY [facility] Last Admin: 08/29/17 11:04 Dose: 30 mg Levothyroxine Sodium (Synthroid) 112 mcg PO 0600 [facility] Last Admin: 08/30/17 06:04 Dose: 112 mcg Losartan Potassium (Cozaar) 25 mg PO DAILY [facility] Last Admin: 08/29/17 11:04 Dose: 25 mg Metoprolol Succinate (Toprol Xl) 25 mg PO BRK [facility] Last Admin: 08/29/17 08:00 Dose: Not Given Morphine Sulfate (Morphine) 0.5 mg IVP Q6H PRN PRN Reason: Pain, moderate (4-7) Pantoprazole Sodium (Protonix Ec Tab) 40 mg PO ACB [facility] Prednisone (Prednisone Tab) 40 mg PO DAILY [facility] - Labs Labs: 08/30/17 06:30 08/30/17 06:30 PT 50.2 SECONDS (9.4-12.5) H 08/30/17 06:30 INR 4.24 (0.93-1.08) H* 08/30/17 06:30 APTT 44.4 Seconds (25.1-36.5) H 08/29/17 00:33 Assessment and Plan - Assessment and Plan (Free Text) Assessment: Diffuse body,LE pain, SOB/Edema R/O Acute Gout CHF IV on home milrinone infusion CCM with severe LVD MR,TR,PH, severe AF on warfarin ICD CVA Hypothyroidism GB surgery Former Smoker Plan: As per Renal OOB as mireille. Hold warfarin, monitor INR daily. May need Vit K IV Lasix 20 BID Ortho eval. Continue cardiac meds Monitor : labs, I/O, sats., INRs, etc. Will follow
[2017-08-30] MEDS: Pantoprazole 40 mg EC Tab PO SCH (08:39)
[2017-08-30] MEDS: Metoprolol Succinate 25 mg XL Tab PO SCH (08:40)
--- NOTE | 2017-08-30 11:24 | CP.PCM.PN ---
<Delicia Burciaga - Last Filed: 08/30/17 11:17> Subjective - Date & Time of Evaluation Date of Evaluation: 08/30/17 Time of Evaluation: 11:17 - Subjective Subjective: Delicia Burciaga, PGY1, Medicine Progress Note for Dr Guerrero: Patient seen and examined at bedside. No acute events overnight. Patient reports that her lower extremity pain is better since yesterday. Denies fevers, chills, nausea, vomiting, abdominal pain. States that she is tolerating PO diet well. Pt reports that she is urinating quite a lot after her lasix dose yesterday. Objective - Vital Signs/Intake and Output Vital Signs (last 24 hours): Temp Pulse Resp BP Pulse Ox 97.9 F 67 19 129/61 100 08/30/17 06:00 08/30/17 10:00 08/30/17 06:00 08/30/17 10:08 08/30/17 06:00 Intake and Output: 08/30/17 08/30/17 06:59 18:59 Intake Total 310 Output Total 200 Balance 110 - Medications Medications: Current Medications Allopurinol (Zyloprim) 100 mg PO BID [facility] Last Admin: 08/30/17 10:07 Dose: 100 mg Colchicine (Colocrys) 0.6 mg PO BID [facility] Last Admin: 08/30/17 10:07 Dose: 0.6 mg Digoxin (Digoxin) 0.125 mg PO Q48H [facility] Last Admin: 08/29/17 15:17 Dose: 0.125 mg Furosemide (Lasix) 20 mg IVP BID [facility] Last Admin: 08/30/17 10:08 Dose: 20 mg Milrinone Lactate/Dextrose (Primacor 20mg/100ml D5w) 100 mls @ 6.96 mls/hr IV .[id number] PRN; Protocol; 0.33 MCG/KG/MIN PRN Reason: TITRATE PER MD ORDER Last Admin: 08/30/17 06:02 Dose: 0.33 mcg/kg/min, 6.96 mls/hr Isosorbide Mononitrate (Imdur Er) 30 mg PO DAILY [facility] Last Admin: 08/30/17 10:07 Dose: 30 mg Levothyroxine Sodium (Synthroid) 112 mcg PO 0600 [facility] Last Admin: 06/26/18 06:04 Dose: 112 mcg Losartan Potassium (Cozaar) 25 mg PO DAILY [facility] Last Admin: 08/30/17 10:07 Dose: 25 mg Metoprolol Succinate (Toprol Xl) 25 mg PO BRK [facility] Last Admin: 08/30/17 08:40 Dose: 25 mg Morphine Sulfate (Morphine) 0.5 mg IVP Q6H PRN PRN Reason: Pain, moderate (4-7) Pantoprazole Sodium (Protonix Ec Tab) 40 mg PO ACB [facility] Last Admin: 08/30/17 08:39 Dose: 40 mg Prednisone (Prednisone Tab) 40 mg PO DAILY [facility] Last Admin: 08/30/17 10:07 Dose: 40 mg - Labs Labs: 08/30/17 06:30 08/30/17 06:30 PT 50.2 SECONDS (9.4-12.5) H 08/30/17 06:30 INR 4.24 (0.93-1.08) H* 08/30/17 06:30 APTT 44.4 Seconds (25.1-36.5) H 08/29/17 00:33 - Constitutional Appears: Non-toxic, No Acute Distress - Head Exam Head Exam: ATRAUMATIC, NORMOCEPHALIC - Eye Exam Eye Exam: EOMI, PERRL. absent: Conjunctival injection, Nystagmus, Scleral icterus Pupil Exam: NORMAL ACCOMODATION, PERRL. absent: Fixed, Irregular, Miosis, Unequal - ENT Exam ENT Exam: Mucous Membranes Moist - Neck Exam Neck Exam: Full ROM - Respiratory Exam Respiratory Exam: Decreased Breath Sounds - Cardiovascular Exam Cardiovascular Exam: Irregular Rhythm - GI/Abdominal Exam GI & Abdominal Exam: Soft, Normal Bowel Sounds. absent: Firm, Guarding, Rigid, Tenderness, Mass, Organomegaly, Rebound - Extremities Exam Extremities Exam: absent: Calf Tenderness Additional comments: + b/l LE/foot swelling, L>R. no calf tenderness - Back Exam Back Exam: NORMAL INSPECTION - Neurological Exam Neurological Exam: Alert, Awake, Oriented x3 - Psychiatric Exam Psychiatric exam: Normal Affect, Normal Mood - Skin Skin Exam: Dry, Normal Color, Warm Assessment and Plan - Assessment and Plan (Free Text) Assessment: 87 year old female with a history of systolic heart failure with icd and on milrinone drip, atrial fibrillation, hypothyroidism, and gout, admitted for acute gout attack, CHF exacerbation: LE swelling/pain: 2/2 acute gout attack vs chf exacerbation - colchicine, allopurinol - prednisone 40 mg daily - Ortho Dr Ambriz consulted. F/u recs. - Elevate legs - uric acid 6.6 - BNP elevated 8500 - Lasix 80 mg IV given yesterday. Lasix 20 IV BID - UO: 200 ml + diaper - Cardio consulted. appreciate recs. - monitor - PT eval Supratherapeutic INR: - hold home coumadin - no active bleeding - monitor Hx of CHF -cont digoxin, cozaar, metoprolol, isosorbide mononitrate, lasix 20 IV BID Hx of Hypothyroidism: -cont home synthroid Hx of Atrial fibrillation: -Cont home metoprolol. hold coumadin in setting of supratherapeutic INR PPX -Protonix -SCDs. Coumadin held due to supratherapeutic INR. Case seen and discussed with Dr Guerrero. Delicia Burciaga, PGY1 <Marvin Guererro - Last Filed: 08/31/17 12:47> Objective - Vital Signs/Intake and Output Vital Signs (last 24 hours): Temp Pulse Resp BP Pulse Ox 97.8 F 70 19 116/72 97 08/31/17 06:00 08/31/17 10:35 08/31/17 06:00 08/31/17 10:37 08/31/17 06:00 Intake and Output: 08/31/17 08/31/17 06:59 18:59 Intake Total 280 Output Total 850 Balance -570 - Medications Medications: Current Medications Allopurinol (Zyloprim) 100 mg PO BID [facility] Last Admin: 08/31/17 10:36 Dose: 100 mg Colchicine (Colocrys) 0.6 mg PO BID [facility] Last Admin: 08/31/17 10:36 Dose: 0.6 mg Digoxin (Digoxin) 0.125 mg PO Q48H [facility] Last Admin: 08/29/17 15:17 Dose: 0.125 mg Furosemide (Lasix) 20 mg IVP BID [facility] Last Admin: 08/31/17 10:37 Dose: 20 mg Milrinone Lactate/Dextrose (Primacor 20mg/100ml D5w) 100 mls @ 6.96 mls/hr IV .[id number] PRN; Protocol; 0.33 MCG/KG/MIN PRN Reason: TITRATE PER MD ORDER Last Admin: 08/30/17 22:54 Dose: 0.33 mcg/kg/min, 6.96 mls/hr Isosorbide Mononitrate (Imdur Er) 30 mg PO DAILY [facility] Last Admin: 08/31/17 10:37 Dose: 30 mg Levothyroxine Sodium (Synthroid) 112 mcg PO 0600 [facility] Last Admin: 08/31/17 06:30 Dose: 112 mcg Losartan Potassium (Cozaar) 25 mg PO DAILY [facility] Last Admin: 08/31/17 10:35 Dose: 25 mg Metoprolol Succinate (Toprol Xl) 25 mg PO BRK [facility] Last Admin: 08/31/17 08:22 Dose: 25 mg Morphine Sulfate (Morphine) 0.5 mg IVP Q6H PRN PRN Reason: Pain, moderate (4-7) Pantoprazole Sodium (Protonix Ec Tab) 40 mg PO ACB [facility] Last Admin: 08/31/17 08:22 Dose: 40 mg Prednisone (Prednisone Tab) 40 mg PO DAILY [facility] Last Admin: 08/31/17 10:36 Dose: 40 mg - Labs Labs: 08/31/17 08:30 08/31/17 06:00 PT 10.6 SECONDS (9.4-12.5) 08/31/17 06:00 INR 0.92 (0.93-1.08) L 08/31/17 06:00 APTT 44.4 Seconds (25.1-36.5) H 08/29/17 00:33 Attending/Attestation - Attestation I have personally seen and examined this patient.: Yes I have fully participated in the care of the patient.: Yes I have reviewed all pertinent clinical information, including history, physical exam and plan: Yes Notes (Text): 08/31/17 12:41 Attending note; Patient seen and examined with resident. Patient is a 87 year old female with a history of systolic heart failure with AICD and on milrinone drip, atrial fibrillation, hypothyroidism, and gout, admitted for acute gout attack, CHF exacerbation. Currently on IV Lasix. Continue IV milrinone. Cardiology evaluation appreciated. both ankle and hand swelling improving. X-ray showed no fracture. Orthopedic evaluation appreciated. Elevated INR. Hold Coumadin. Monitor closely. Chronic kidney disease; monitor closely. Physical therapy evaluation requested. health policy manager/social work associate evaluation requested for discharge planning. Patient is DNI DNR. Prognosis is poor. Upon discharge the patient will follow-up with PMD .
--- NOTE | 2017-08-30 15:38 | RAD ---
PROCEDURE: Bilateral Ankle Radiographs. HISTORY: pain,swelling COMPARISON: None FINDINGS: BONES: Right Ankle: Normal. No fracture. Left Ankle: Normal. No fracture. JOINTS: Right Ankle: Normal. No osteoarthritis. Ankle mortise maintained. Talar dome intact. Left Ankle: Normal. No osteoarthritis. Ankle mortise maintained. Talar dome intact. SOFT TISSUES: Right Ankle: Lateral soft tissue swelling. Left Ankle: Lateral soft tissue swelling. OTHER FINDINGS: None. IMPRESSION: No fracture/ dislocation. Bilateral lateral soft tissue swelling.
--- NOTE | 2017-08-30 15:40 | RAD ---
PROCEDURE: Bilateral hand radiographs. HISTORY: b/l hand pain, swelling COMPARISON: None. FINDINGS: BONES: Right Hand: Normal. No osteoarthritic changes. Left Hand: Normal. No osteoarthritic changes. 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 MCP joints are intact. Remaining IP joints are intact. 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 MCP articulations and remaining IP articulations are intact. SOFT TISSUES: Right Hand: Normal. Left Hand: Normal. OTHER FINDINGS: None. IMPRESSION: Osteoarthritis as described. No acute fracture.
--- NOTE | 2017-08-30 16:02 | CP.PCM.PN ---
Subjective - Date & Time of Evaluation Date of Evaluation: 08/30/17 Time of Evaluation: 15:55 - Subjective Subjective: Pt seen and examined. Complaining of bilateral hand pain and ankle pain. No hx of trauma. Pt has a hx of gout and had left knee steroid injection last month. Pt reports less knee pain now. No hx of fevers. Pt admitted for CHF exacerbation. On exam, b/l hands tender to palpation over both wrists; swelling noted over multiple IP joints Pain with active ROM no crepitus NVI b/l Ankles: swelling noted bilaterally, L > R tender over anterior joint line pt with decreased ROM secondary to pain grossly neuro intact x rays b/l hands: no acute fxs or dislocations degnerative changes noted at b/l wrists 1st [facility] arthritis degenrative changes multiple IP joints xrays b/l ankles: mild to mod soft tissue swelling; no acute fx or dislocation noted Impression: b/l hand and wrist arthritis and b/l ankle pain Etiology likely due to gout Pt currently on colchicine, allopurinol and prednisone continue current care PT for gait training. WBAT b/l ankles Will monitor Objective - Vital Signs/Intake and Output Vital Signs (last 24 hours): Temp Pulse Resp BP Pulse Ox 97.5 F L 76 19 135/66 100 08/30/17 12:00 08/30/17 14:00 08/30/17 12:00 08/30/17 12:00 08/30/17 06:00 Intake and Output: 08/30/17 08/30/17 06:59 18:59 Intake Total 310 Output Total 200 Balance 110 - Medications Medications: Current Medications Allopurinol (Zyloprim) 100 mg PO BID [facility] Last Admin: 08/30/17 10:07 Dose: 100 mg Colchicine (Colocrys) 0.6 mg PO BID [facility] Last Admin: 08/30/17 10:07 Dose: 0.6 mg Digoxin (Digoxin) 0.125 mg PO Q48H [facility] Last Admin: 08/29/17 15:17 Dose: 0.125 mg Furosemide (Lasix) 20 mg IVP BID [facility] Last Admin: 08/30/17 10:08 Dose: 20 mg Milrinone Lactate/Dextrose (Primacor 20mg/100ml D5w) 100 mls @ 6.96 mls/hr IV .[id number] PRN; Protocol; 0.33 MCG/KG/MIN PRN Reason: TITRATE PER MD ORDER Last Admin: 08/30/17 06:02 Dose: 0.33 mcg/kg/min, 6.96 mls/hr Isosorbide Mononitrate (Imdur Er) 30 mg PO DAILY [facility] Last Admin: 08/30/17 10:07 Dose: 30 mg Levothyroxine Sodium (Synthroid) 112 mcg PO 0600 [facility] Last Admin: 08/30/17 06:04 Dose: 112 mcg Losartan Potassium (Cozaar) 25 mg PO DAILY [facility] Last Admin: 08/30/17 10:07 Dose: 25 mg Metoprolol Succinate (Toprol Xl) 25 mg PO BRK [facility] Last Admin: 08/30/17 08:40 Dose: 25 mg Morphine Sulfate (Morphine) 0.5 mg IVP Q6H PRN PRN Reason: Pain, moderate (4-7) Pantoprazole Sodium (Protonix Ec Tab) 40 mg PO ACB [facility] Last Admin: 08/30/17 08:39 Dose: 40 mg Prednisone (Prednisone Tab) 40 mg PO DAILY [facility] Last Admin: 08/30/17 10:07 Dose: 40 mg - Labs Labs: 08/30/17 06:30 08/30/17 06:30 PT 50.2 SECONDS (9.4-12.5) H 08/30/17 06:30 INR 4.24 (0.93-1.08) H* 08/30/17 06:30 APTT 44.4 Seconds (25.1-36.5) H 08/29/17 00:33
--- NOTE | 2017-08-30 18:12 | CP.PCM.PN ---
Subjective - Date & Time of Evaluation Date of Evaluation: 08/30/17 Time of Evaluation: 11:00 - Subjective Subjective: Reports breathing well; urinated more overnight than in previous days; still with L knee/ankle pain; Objective - Vital Signs/Intake and Output Vital Signs (last 24 hours): Temp Pulse Resp BP Pulse Ox 97.6 F 69 20 126/61 100 08/30/17 18:00 08/30/17 18:00 08/30/17 18:00 08/30/17 18:00 08/30/17 06:00 Intake and Output: 08/30/17 08/30/17 06:59 18:59 Intake Total 310 Output Total 200 Balance 110 - Medications Medications: Current Medications Allopurinol (Zyloprim) 100 mg PO BID [facility] Last Admin: 08/30/17 17:36 Dose: 100 mg Colchicine (Colocrys) 0.6 mg PO BID [facility] Last Admin: 08/30/17 17:36 Dose: 0.6 mg Digoxin (Digoxin) 0.125 mg PO Q48H [facility] Last Admin: 08/29/17 15:17 Dose: 0.125 mg Furosemide (Lasix) 20 mg IVP BID [facility] Last Admin: 08/30/17 17:36 Dose: 20 mg Milrinone Lactate/Dextrose (Primacor 20mg/100ml D5w) 100 mls @ 6.96 mls/hr IV .[id number] PRN; Protocol; 0.33 MCG/KG/MIN PRN Reason: TITRATE PER MD ORDER Last Admin: 08/30/17 06:02 Dose: 0.33 mcg/kg/min, 6.96 mls/hr Isosorbide Mononitrate (Imdur Er) 30 mg PO DAILY [facility] Last Admin: 08/30/17 10:07 Dose: 30 mg Levothyroxine Sodium (Synthroid) 112 mcg PO 0600 [facility] Last Admin: 08/30/17 06:04 Dose: 112 mcg Losartan Potassium (Cozaar) 25 mg PO DAILY [facility] Last Admin: 08/30/17 10:07 Dose: 25 mg Metoprolol Succinate (Toprol Xl) 25 mg PO BRK [facility] Last Admin: 08/30/17 08:40 Dose: 25 mg Morphine Sulfate (Morphine) 0.5 mg IVP Q6H PRN PRN Reason: Pain, moderate (4-7) Pantoprazole Sodium (Protonix Ec Tab) 40 mg PO ACB [facility] Last Admin: 08/30/17 08:39 Dose: 40 mg Prednisone (Prednisone Tab) 40 mg PO DAILY [facility] Last Admin: 08/30/17 10:07 Dose: 40 mg - Labs Labs: 08/30/17 06:30 08/30/17 06:30 PT 50.2 SECONDS (9.4-12.5) H 08/30/17 06:30 INR 4.24 (0.93-1.08) H* 08/30/17 06:30 APTT 44.4 Seconds (25.1-36.5) H 08/29/17 00:33 - Constitutional Appears: Non-toxic, No Acute Distress - Eye Exam Eye Exam: absent: Scleral icterus - ENT Exam ENT Exam: Mucous Membranes Moist - Respiratory Exam Respiratory Exam: absent: Respiratory Distress Additional comments: bilateral rales (chronic); - Cardiovascular Exam Cardiovascular Exam: RRR, +S1, +S2 - GI/Abdominal Exam GI & Abdominal Exam: Soft. absent: Distended, Tenderness - Extremities Exam Additional comments: bilateral lower leg moderate edema; - Neurological Exam Neurological Exam: Alert, Awake - Psychiatric Exam Psychiatric exam: Normal Mood. absent: Agitated - Skin Skin Exam: Warm. absent: Cyanosis Assessment and Plan (1) CKD (chronic kidney disease), stage III Assessment & Plan: Cardiorenal etiology of CKD; stable renal function; hyperkalemia resolved; -continue IV diuretics (on lasix 20 mg bid); -continue meds for cardiac optimization (B-emilia, ARB); Status: Chronic (2) HFrEF (heart failure with reduced ejection fraction) Assessment & Plan: Symptomatically improved with decreased leg swelling on exam; weights inaccurate ; -daily standing weight -diuretics/meds as above; if BP tolerates, can titrate upward losartan (expect mild increase in serum creatinine); Status: Acute (3) Hyperuricemia Assessment & Plan: Agree with daily steroids for gout; Status: Chronic (4) Hyperkalemia Assessment & Plan: Continue low K diet; Status: Resolved
[2017-08-31] MEDS: Levothyroxine 112 MCG TAB PO SCH (06:30)
[2017-08-31 06:53] LABS: IRON 73 ug/dL (45-180)
[2017-08-31 06:54] LABS: INR 0.92 (0.93-1.08); PROTHROMBIN TIME 10.6 SECONDS (9.4-12.5)
[2017-08-31 06:55] LABS: ALB/GLOB RATIO 0.6 (1.1-1.8); ALBUMIN 2.2 g/dL (3.0-4.8); ALT/SGPT 125 U/L (7-56); AST/SGOT 123 U/L (14-36); BLOOD UREA NITROGEN 30 mg/dL (7-21); CALCIUM 8.6 mg/dL (8.4-10.5); GFR AFRICAN-AMERICAN > 60; GFR NON-AFRICAN AMERICAN > 60
[2017-08-31 07:03] LABS: % IRON SATURATION 34 % (20-55); TOTAL IRON BINDING CAPACITY 216 ug/dL (265-497)
[2017-08-31] MEDS: Pantoprazole 40 mg EC Tab PO SCH (08:22)
[2017-08-31] MEDS: Metoprolol Succinate 25 mg XL Tab PO SCH (08:22)
[2017-08-31 08:46] LABS: BASO # 0.01 K/mm3 (0.0-2.0); BASO % 0.1 % (0.0-3.0); EOS % 0.1 % (1.5-5.0); GRAN # 11.54 (1.4-6.5); GRAN % 80.8 % (50.0-68.0); HEMOGLOBIN 10.4 g/dL (12.0-16.0); LYMPH # 1.7 (1.2-3.4); LYMPH % 11.7 % (22.0-35.0); MEAN CELL VOLUME 89.8 fl (80.0-105.0); MEAN CORPUSCULAR HEMOGLOBIN 31.2 pg (25.0-35.0); MEAN CORPUSCULAR HGB CONC 34.8 g/dl (31.0-37.0); MEAN PLATELET VOLUME 10.2 fl (7.0-11.0); MONO % 7.3 % (1.0-6.0); RBC 3.33 10^6/uL (3.5-6.1); RED CELL DISTRIBUTION WIDTH 14.9 % (11.5-14.5); WHITE BLOOD COUNT 14.3 10^3/ul (4.5-11.0)
[2017-08-31 13:36] LABS: FERRITIN 56.7 ng/mL
[2017-08-31 13:59] LABS: PROTHROMBIN TIME 43.5 SECONDS (9.4-12.5)
[2017-08-31 14:01] LABS: INR 3.71 (0.93-1.08)
[2017-08-31] MEDS: Digoxin 125 mcg (0.125 mg) Tab PO SCH (14:48)
--- NOTE | 2017-08-31 14:54 | CP.PCM.PN ---
<Delicia Burciaga - Last Filed: 08/31/17 14:49> Subjective - Date & Time of Evaluation Date of Evaluation: 08/31/17 Time of Evaluation: 10:00 - Subjective Subjective: Delicia Burciaga, PGY1, Medicine Progress Note for Dr Guerrero: Patient seen and examined at bedside. No acute events overnight. Pt reports feeling better. States that she lives at a senior adult house, has a friend Leela ([phone]), who is going to look after patient at home for next 3 days. After which, patient's daughter will return. Denies cp, sob, abdominal pain, urinary symptoms. Objective - Vital Signs/Intake and Output Vital Signs (last 24 hours): Temp Pulse Resp BP Pulse Ox 98.4 F 95 H 16 127/68 97 08/31/17 12:00 08/31/17 12:00 08/31/17 12:00 08/31/17 12:00 08/31/17 06:00 Intake and Output: 08/31/17 08/31/17 06:59 18:59 Intake Total 280 Output Total 850 Balance -570 - Medications Medications: Current Medications Allopurinol (Zyloprim) 100 mg PO BID [facility] Last Admin: 08/31/17 10:36 Dose: 100 mg Colchicine (Colocrys) 0.6 mg PO BID [facility] Last Admin: 08/31/17 10:36 Dose: 0.6 mg Digoxin (Digoxin) 0.125 mg PO Q48H [facility] Last Admin: 08/31/17 14:48 Dose: 0.125 mg Furosemide (Lasix) 20 mg IVP BID [facility] Last Admin: 08/31/17 10:37 Dose: 20 mg Milrinone Lactate/Dextrose (Primacor 20mg/100ml D5w) 100 mls @ 6.96 mls/hr IV .[id number] PRN; Protocol; 0.33 MCG/KG/MIN PRN Reason: TITRATE PER MD ORDER Last Admin: 08/30/17 22:54 Dose: 0.33 mcg/kg/min, 6.96 mls/hr Isosorbide Mononitrate (Imdur Er) 30 mg PO DAILY [facility] Last Admin: 08/31/17 10:37 Dose: 30 mg Levothyroxine Sodium (Synthroid) 112 mcg PO 0600 [facility] Last Admin: 08/31/17 06:30 Dose: 112 mcg Losartan Potassium (Cozaar) 25 mg PO DAILY [facility] Last Admin: 08/31/17 10:35 Dose: 25 mg Metoprolol Succinate (Toprol Xl) 25 mg PO BRK [facility] Last Admin: 08/31/17 08:22 Dose: 25 mg Morphine Sulfate (Morphine) 0.5 mg IVP Q6H PRN PRN Reason: Pain, moderate (4-7) Pantoprazole Sodium (Protonix Ec Tab) 40 mg PO ACB [facility] Last Admin: 08/31/17 08:22 Dose: 40 mg Prednisone (Prednisone Tab) 40 mg PO DAILY [facility] Last Admin: 08/31/17 10:36 Dose: 40 mg - Labs Labs: 08/31/17 08:30 08/31/17 06:00 PT 43.5 SECONDS (9.4-12.5) H 08/31/17 13:30 INR 3.71 (0.93-1.08) H* 08/31/17 13:30 APTT 44.4 Seconds (25.1-36.5) H 08/29/17 00:33 - Additional Findings Additional findings: - Constitutional Appears: Non-toxic, No Acute Distress - Head Exam Head Exam: ATRAUMATIC, NORMOCEPHALIC - Eye Exam Eye Exam: EOMI, PERRL. absent: Conjunctival injection, Nystagmus, Scleral icterus Pupil Exam: NORMAL ACCOMODATION, PERRL. absent: Fixed, Irregular, Miosis, Unequal - ENT Exam ENT Exam: Mucous Membranes Moist - Neck Exam Neck Exam: Full ROM - Respiratory Exam Respiratory Exam: Decreased Breath Sounds - Cardiovascular Exam Cardiovascular Exam: Irregular Rhythm - GI/Abdominal Exam GI & Abdominal Exam: Soft, Normal Bowel Sounds. absent: Firm, Guarding, Rigid, Tenderness, Mass, Organomegaly, Rebound - Extremities Exam Extremities Exam: absent: Calf Tenderness Additional comments: + b/l LE/foot swelling, much improved since admission. no calf tenderness - Back Exam Back Exam: NORMAL INSPECTION - Neurological Exam Neurological Exam: Alert, Awake, Oriented x3 - Psychiatric Exam Psychiatric exam: Normal Affect, Normal Mood - Skin Skin Exam: Dry, Normal Color, Warm Assessment and Plan - Assessment and Plan (Free Text) Assessment: 87 year old female with a history of systolic heart failure with icd and on milrinone drip, atrial fibrillation, hypothyroidism, and gout, admitted for acute gout attack, CHF exacerbation: LE swelling/pain: 2/2 acute gout attack vs chf exacerbation - colchicine, allopurinol - prednisone 40 mg daily - Ortho Dr Ambriz consulted. F/u recs. - Elevate legs - uric acid 6.6 - BNP elevated 8500 - Lasix 80 mg IV given yesterday. Lasix 20 IV BID - UO: 200 ml + diaper - Cardio consulted. appreciate recs. - monitor - PT eval recommends [facility] Supratherapeutic INR: - hold home coumadin - no active bleeding - monitor Hx of CHF -cont digoxin, cozaar, metoprolol, isosorbide mononitrate, lasix 20 IV BID Hx of Hypothyroidism: -cont home synthroid Hx of Atrial fibrillation: -Cont home metoprolol. hold coumadin in setting of supratherapeutic INR PPX -Protonix -SCDs. Coumadin held due to supratherapeutic INR. Dispo: Pt eval recommends [facility], awaiting criminal justice social worker for placement. Case seen and discussed with Dr Guerrero. Delicia Burciaga, PGY1 <Marvin Guerrero - Last Filed: 08/31/17 16:05> Objective - Vital Signs/Intake and Output Vital Signs (last 24 hours): Temp Pulse Resp BP Pulse Ox 98.4 F 95 H 16 127/68 97 08/31/17 12:00 08/31/17 12:00 08/31/17 12:00 08/31/17 12:00 08/31/17 06:00 Intake and Output: 08/31/17 08/31/17 06:59 18:59 Intake Total 280 Output Total 850 Balance -570 - Medications Medications: Current Medications Allopurinol (Zyloprim) 100 mg PO BID [facility] Last Admin: 08/31/17 10:36 Dose: 100 mg Colchicine (Colocrys) 0.6 mg PO BID [facility] Last Admin: 08/31/17 10:36 Dose: 0.6 mg Digoxin (Digoxin) 0.125 mg PO Q48H [facility] Last Admin: 08/31/17 14:48 Dose: 0.125 mg Furosemide (Lasix) 20 mg IVP BID [facility] Last Admin: 08/31/17 10:37 Dose: 20 mg Milrinone Lactate/Dextrose (Primacor 20mg/100ml D5w) 100 mls @ 6.96 mls/hr IV .[id number] PRN; Protocol; 0.33 MCG/KG/MIN PRN Reason: TITRATE PER MD ORDER Last Admin: 08/30/17 22:54 Dose: 0.33 mcg/kg/min, 6.96 mls/hr Isosorbide Mononitrate (Imdur Er) 30 mg PO DAILY [facility] Last Admin: 08/31/17 10:37 Dose: 30 mg Levothyroxine Sodium (Synthroid) 112 mcg PO 0600 [facility] Last Admin: 08/31/17 06:30 Dose: 112 mcg Losartan Potassium (Cozaar) 25 mg PO DAILY [facility] Last Admin: 08/31/17 10:35 Dose: 25 mg Metoprolol Succinate (Toprol Xl) 25 mg PO BRK [facility] Last Admin: 08/31/17 08:22 Dose: 25 mg Morphine Sulfate (Morphine) 0.5 mg IVP Q6H PRN PRN Reason: Pain, moderate (4-7) Pantoprazole Sodium (Protonix Ec Tab) 40 mg PO ACB [facility] Last Admin: 08/31/17 08:22 Dose: 40 mg Prednisone (Prednisone Tab) 40 mg PO DAILY [facility] Last Admin: 08/31/17 10:36 Dose: 40 mg - Labs Labs: 08/31/17 08:30 08/31/17 06:00 PT 43.5 SECONDS (9.4-12.5) H 08/31/17 13:30 INR 3.71 (0.93-1.08) H* 08/31/17 13:30 APTT 44.4 Seconds (25.1-36.5) H 08/29/17 00:33 Attending/Attestation - Attestation I have personally seen and examined this patient.: Yes I have fully participated in the care of the patient.: Yes I have reviewed all pertinent clinical information, including history, physical exam and plan: Yes Notes (Text): 08/31/17 16:03 Attending note; Patient seen and examined with resident. Patient is a 87 year old female with a history of systolic heart failure with AICD and on milrinone drip, atrial fibrillation, hypothyroidism, and gout, admitted for acute gout attack and CHF exacerbation. Currently on IV Lasix. Continue IV milrinone. Cardiology evaluation appreciated. both ankle and hand swelling improving. X-ray showed no fracture. Orthopedic evaluation appreciated. Elevated INR. Hold Coumadin. Monitor closely. Acute gout; on prednisone, colchicine and allopurinol. Mildly elevated white count secondary to acute inflammation/steroid treatment. Chronic kidney disease; creatinine is stable at 1.3. Physical therapy evaluation appreciated. Subacute rehabilitation recommended. food and beverage operations manager/criminal justice social worker evaluation requested for discharge planning. Patient is DNI DNR. Prognosis is poor. Upon discharge the patient will follow-up with PMD . 08/31/17 16:04
[2017-08-31] MEDS: Milrinone 20mg/100ml D5W 100 ML IV PRN (17:47)
--- NOTE | 2017-08-31 19:24 | CP.PCM.PN ---
Subjective - Date & Time of Evaluation Date of Evaluation: 08/31/17 Time of Evaluation: 13:00 - Subjective Subjective: 87 yo F w/ pmh of CHF w/ severe systolic dysfunction, on home milrinone drip, hypothyroidism and gout, admitted for CHF exacerbation and acute gout flare; Still with L > R knee/ankle pain but improving; continues to urinates well; breathing stable; sitting in chair earlier today; tolerating diet; Objective - Vital Signs/Intake and Output Vital Signs (last 24 hours): Temp Pulse Resp BP Pulse Ox 97 F L 72 20 119/61 97 08/31/17 17:51 08/31/17 18:00 08/31/17 17:51 08/31/17 17:51 08/31/17 06:00 Intake and Output: 08/31/17 09/01/17 18:59 06:59 Intake Total 100 Balance 100 - Medications Medications: Current Medications Allopurinol (Zyloprim) 100 mg PO BID [facility] Last Admin: 08/31/17 17:42 Dose: 100 mg Colchicine (Colocrys) 0.6 mg PO BID [facility] Last Admin: 08/31/17 17:43 Dose: 0.6 mg Digoxin (Digoxin) 0.125 mg PO Q48H [facility] Last Admin: 08/31/17 14:48 Dose: 0.125 mg Furosemide (Lasix) 20 mg IVP BID [facility] Last Admin: 08/31/17 17:43 Dose: 20 mg Milrinone Lactate/Dextrose (Primacor 20mg/100ml D5w) 100 mls @ 6.96 mls/hr IV .[id number] PRN; Protocol; 0.33 MCG/KG/MIN PRN Reason: TITRATE PER MD ORDER Last Admin: 08/31/17 17:47 Dose: 0.33 mcg/kg/min, 6.96 mls/hr Isosorbide Mononitrate (Imdur Er) 30 mg PO DAILY [facility] Last Admin: 08/31/17 10:37 Dose: 30 mg Levothyroxine Sodium (Synthroid) 112 mcg PO 0600 [facility] Last Admin: 08/31/17 06:30 Dose: 112 mcg Losartan Potassium (Cozaar) 25 mg PO DAILY [facility] Last Admin: 08/31/17 10:35 Dose: 25 mg Metoprolol Succinate (Toprol Xl) 25 mg PO BRK [facility] Last Admin: 08/31/17 08:22 Dose: 25 mg Morphine Sulfate (Morphine) 0.5 mg IVP Q6H PRN PRN Reason: Pain, moderate (4-7) Pantoprazole Sodium (Protonix Ec Tab) 40 mg PO ACB [facility] Last Admin: 08/31/17 08:22 Dose: 40 mg Prednisone (Prednisone Tab) 40 mg PO DAILY [facility] Last Admin: 08/31/17 10:36 Dose: 40 mg - Labs Labs: 08/31/17 08:30 08/31/17 06:00 PT 43.5 SECONDS (9.4-12.5) H 08/31/17 13:30 INR 3.71 (0.93-1.08) H* 08/31/17 13:30 APTT 44.4 Seconds (25.1-36.5) H 08/29/17 00:33 - Constitutional Appears: Non-toxic, No Acute Distress - Eye Exam Eye Exam: Normal appearance - ENT Exam ENT Exam: Mucous Membranes Moist - Respiratory Exam Respiratory Exam: absent: Respiratory Distress Additional comments: bilateral fine rales (chronic); - Cardiovascular Exam Cardiovascular Exam: absent: Gallop, Irregular Rhythm, JVD Additional comments: soft systolic murmur at apex - GI/Abdominal Exam GI & Abdominal Exam: absent: Distended, Soft, Tenderness - Extremities Exam Additional comments: 2+ b/l lower leg edema (slightly improved); - Psychiatric Exam Psychiatric exam: Normal Affect, Normal Mood - Skin Skin Exam: Warm. absent: Cyanosis Assessment and Plan (1) DAPHNE (acute kidney injury) Assessment & Plan: Cardiorenal etiology; improved with sustained diuresis; needs to be kept on twice daily lasix dosing for effective diuresis; -continue lasix IV 20 mg bid; -if discharging, should switch to PO lasix 40 mg bid for a few days until weight back down to low 150's (lbs); then go back to her usual dose of 20 mg PO bid; -continue to optimize cardiac status with B-emilia and ARB, titrate upward as BP tolerates; -daily standing weights if possible (current bed weights unreliable); -hyperkalemia resolved, keep on low K diet for now; Status: Resolved (2) HFrEF (heart failure with reduced ejection fraction) Assessment & Plan: Improving, see above; Status: Acute (3) Hyperuricemia Assessment & Plan: With acute gout flare; on steroids and colchicine; -continue to avoid all NSAIDS; Status: Chronic
[2017-09-01] MEDS: Milrinone 20mg/100ml D5W 100 ML IV PRN ×2 (03:42→19:57)
[2017-09-01] MEDS: Levothyroxine 112 MCG TAB PO SCH (05:13)
[2017-09-01 06:37] LABS: BASO # 0.01 K/mm3 (0.0-2.0); BASO % 0.1 % (0.0-3.0); EOS % 0.1 % (1.5-5.0); GRAN # 11.79 (1.4-6.5); GRAN % 82.6 % (50.0-68.0); HEMOGLOBIN 10.7 g/dL (12.0-16.0); LYMPH # 1.4 (1.2-3.4); LYMPH % 10.1 % (22.0-35.0); MEAN CELL VOLUME 91.1 fl (80.0-105.0); MEAN CORPUSCULAR HEMOGLOBIN 30.6 pg (25.0-35.0); MEAN CORPUSCULAR HGB CONC 33.5 g/dl (31.0-37.0); MEAN PLATELET VOLUME 10.5 fl (7.0-11.0); MONO % 7.1 % (1.0-6.0); RBC 3.5 10^6/uL (3.5-6.1); RED CELL DISTRIBUTION WIDTH 15.2 % (11.5-14.5); WHITE BLOOD COUNT 14.3 10^3/ul (4.5-11.0)
[2017-09-01 06:57] LABS: INR 3.06 (0.93-1.08)
[2017-09-01 07:18] LABS: ALB/GLOB RATIO 0.9 (1.1-1.8); ALBUMIN 3.1 g/dL (3.0-4.8); CALCIUM 8.9 mg/dL (8.4-10.5)
--- NOTE | 2017-09-01 07:56 | CP.PCM.PN ---
Subjective - Date & Time of Evaluation Date of Evaluation: 09/01/17 Time of Evaluation: 07:00 - Subjective Subjective: Doing OK. Still LE, knees L>R V/S noted. V. Paced. PE: Lungs: rhonchi Cor.: S1S2 Abd.: soft Ext: + edema Neuro.: alert Labs noted: INR= 3.06 BC X1 NG at 3 days. Objective - Vital Signs/Intake and Output Vital Signs (last 24 hours): Temp Pulse Resp BP Pulse Ox 98.1 F 70 20 136/63 100 09/01/17 06:00 09/01/17 06:00 09/01/17 06:00 09/01/17 06:00 09/01/17 06:00 Intake and Output: 09/01/17 09/01/17 06:59 18:59 Intake Total 483 Output Total 3 Balance 480 - Medications Medications: Current Medications Allopurinol (Zyloprim) 100 mg PO BID [facility] Last Admin: 08/31/17 17:42 Dose: 100 mg Colchicine (Colocrys) 0.6 mg PO BID [facility] Last Admin: 08/31/17 17:43 Dose: 0.6 mg Digoxin (Digoxin) 0.125 mg PO Q48H [facility] Last Admin: 08/31/17 14:48 Dose: 0.125 mg Furosemide (Lasix) 20 mg IVP BID [facility] Last Admin: 08/31/17 17:43 Dose: 20 mg Milrinone Lactate/Dextrose (Primacor 20mg/100ml D5w) 100 mls @ 6.96 mls/hr IV .[id number] PRN; Protocol; 0.33 MCG/KG/MIN PRN Reason: TITRATE PER MD ORDER Last Admin: 09/01/17 03:42 Dose: 0.33 mcg/kg/min, 6.96 mls/hr Isosorbide Mononitrate (Imdur Er) 30 mg PO DAILY [facility] Last Admin: 08/31/17 10:37 Dose: 30 mg Levothyroxine Sodium (Synthroid) 112 mcg PO 0600 [facility] Last Admin: 09/01/17 05:13 Dose: 112 mcg Losartan Potassium (Cozaar) 25 mg PO DAILY [facility] Last Admin: 08/31/17 10:35 Dose: 25 mg Metoprolol Succinate (Toprol Xl) 25 mg PO BRK [facility] Last Admin: 08/31/17 08:22 Dose: 25 mg Morphine Sulfate (Morphine) 0.5 mg IVP Q6H PRN PRN Reason: Pain, moderate (4-7) Pantoprazole Sodium (Protonix Ec Tab) 40 mg PO ACB [facility] Last Admin: 08/31/17 08:22 Dose: 40 mg Prednisone (Prednisone Tab) 40 mg PO DAILY [facility] Last Admin: 08/31/17 10:36 Dose: 40 mg - Labs Labs: 09/01/17 06:00 09/01/17 06:00 PT 36.0 SECONDS (9.4-12.5) H 09/01/17 06:00 INR 3.06 (0.93-1.08) H 09/01/17 06:00 APTT 44.4 Seconds (25.1-36.5) H 08/29/17 00:33 Assessment and Plan - Assessment and Plan (Free Text) Assessment: Diffuse body,LE , knee and wrist pain, SOB/Edema R/O Acute Gout CHF IV on home milrinone infusion 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 Hold warfarin, monitor INR daily. IV Lasix 20 BID Continue cardiac meds Monitor : labs, I/O, sats., INRs, etc. Will follow
[2017-09-01] MEDS: Morphine 2 mg/2 mL syringe IVP PRN ×2 (08:54→14:50)
[2017-09-01] MEDS: Pantoprazole 40 mg EC Tab PO SCH (08:54)
[2017-09-01] MEDS: Metoprolol Succinate 25 mg XL Tab PO SCH (08:54)
[2017-09-01] MEDS: Magnesium Oxide 400 mg Tab UD PO SCH (10:13)
--- NOTE | 2017-09-01 15:10 | CP.PCM.PN ---
<Delicia Burciaga - Last Filed: 09/01/17 15:06> Subjective - Date & Time of Evaluation Date of Evaluation: 09/01/17 Time of Evaluation: 15:06 - Subjective Subjective: Delicia Burciaga, PGY1, Medicine Progress Note for Dr Guerrero: Patient seen and examined at bedside. No acute events overnight. Pt reports b/l hands and knee pain. Denies cp, fevers, chills, sob, abdominal pain, urinary symptoms, leg swelling. Objective - Vital Signs/Intake and Output Vital Signs (last 24 hours): Temp Pulse Resp BP Pulse Ox 97.8 F 69 18 134/75 100 09/01/17 11:54 09/01/17 11:54 09/01/17 11:54 09/01/17 11:54 09/01/17 06:00 Intake and Output: 09/01/17 09/01/17 06:59 18:59 Intake Total 483 Output Total 3 Balance 480 - Medications Medications: Current Medications Allopurinol (Zyloprim) 100 mg PO BID [facility] Last Admin: 09/01/17 10:13 Dose: 100 mg Colchicine (Colocrys) 0.6 mg PO BID [facility] Last Admin: 09/01/17 10:13 Dose: 0.6 mg Digoxin (Digoxin) 0.125 mg PO Q48H [facility] Last Admin: 08/31/17 14:48 Dose: 0.125 mg Furosemide (Lasix) 20 mg IVP BID [facility] Last Admin: 09/01/17 10:13 Dose: 20 mg Milrinone Lactate/Dextrose (Primacor 20mg/100ml D5w) 100 mls @ 6.96 mls/hr IV .[id number] PRN; Protocol; 0.33 MCG/KG/MIN PRN Reason: TITRATE PER MD ORDER Last Admin: 09/01/17 03:42 Dose: 0.33 mcg/kg/min, 6.96 mls/hr Isosorbide Mononitrate (Imdur Er) 30 mg PO DAILY [facility] Last Admin: 09/01/17 10:13 Dose: 30 mg Levothyroxine Sodium (Synthroid) 112 mcg PO 0600 [facility] Last Admin: 09/01/17 05:13 Dose: 112 mcg Losartan Potassium (Cozaar) 25 mg PO DAILY [facility] Last Admin: 06/28/18 10:14 Dose: 25 mg Magnesium Oxide (Mag-Ox) 400 mg PO DAILY [facility] Last Admin: 09/01/17 10:13 Dose: 400 mg Metoprolol Succinate (Toprol Xl) 25 mg PO BRK [facility] Last Admin: 09/01/17 08:54 Dose: 25 mg Morphine Sulfate (Morphine) 0.5 mg IVP Q6H PRN PRN Reason: Pain, moderate (4-7) Last Admin: 09/01/17 14:50 Dose: 0.5 mg Pantoprazole Sodium (Protonix Ec Tab) 40 mg PO ACB [facility] Last Admin: 09/01/17 08:54 Dose: 40 mg Prednisone (Prednisone Tab) 40 mg PO DAILY [facility] Last Admin: 09/01/17 10:13 Dose: 40 mg - Labs Labs: 09/01/17 06:00 09/01/17 06:00 PT 36.0 SECONDS (9.4-12.5) H 09/01/17 06:00 INR 3.06 (0.93-1.08) H 09/01/17 06:00 APTT 44.4 Seconds (25.1-36.5) H 08/29/17 00:33 - Additional Findings Additional findings: - Constitutional Appears: Non-toxic, No Acute Distress - Head Exam Head Exam: ATRAUMATIC, NORMOCEPHALIC - Eye Exam Eye Exam: EOMI, PERRL. absent: Conjunctival injection, Nystagmus, Scleral icterus Pupil Exam: NORMAL ACCOMODATION, PERRL. absent: Fixed, Irregular, Miosis, Unequal - ENT Exam ENT Exam: Mucous Membranes Moist - Neck Exam Neck Exam: Full ROM - Respiratory Exam Respiratory Exam: Decreased Breath Sounds - Cardiovascular Exam Cardiovascular Exam: Irregular Rhythm - GI/Abdominal Exam GI & Abdominal Exam: Soft, Normal Bowel Sounds. absent: Firm, Guarding, Rigid, Tenderness, Mass, Organomegaly, Rebound - Extremities Exam Extremities Exam: No swelling. absent: Calf Tenderness Additional comments: - Back Exam Back Exam: NORMAL INSPECTION - Neurological Exam Neurological Exam: Alert, Awake, Oriented x3 - Psychiatric Exam Psychiatric exam: Normal Affect, Normal Mood - Skin Skin Exam: Dry, Normal Color, Warm Assessment and Plan - Assessment and Plan (Free Text) Assessment: 87 year old female with a history of systolic heart failure with icd and on milrinone drip, atrial fibrillation, hypothyroidism, and gout, admitted for acute gout attack, CHF exacerbation: LE swelling/pain: 2/2 acute gout attack vs chf exacerbation - colchicine, allopurinol - prednisone 40 mg daily - Ortho Dr Ambriz consulted. F/u recs. - Elevate legs - uric acid 6.6 - BNP elevated 8500 - Lasix 20 IV BID - Cardio consulted. appreciate recs. - monitor - PT eval recommends [facility] Supratherapeutic INR: - hold home coumadin - no active bleeding - monitor Hx of CHF -cont digoxin, cozaar, metoprolol, isosorbide mononitrate, lasix 20 IV BID Hx of Hypothyroidism: -cont home synthroid Hx of Atrial fibrillation: -Cont home metoprolol. hold coumadin in setting of supratherapeutic INR PPX -Protonix -SCDs. Coumadin held due to supratherapeutic INR. Dispo: Pt eval recommends [facility], awaiting geriatric social worker for placement - [facility] to [facility] Case seen and discussed with Dr Guerrero. Delicia Burciaga, PGY1 <Marvin Guerrero - Last Filed: 09/01/17 18:24> Objective - Vital Signs/Intake and Output Vital Signs (last 24 hours): Temp Pulse Resp BP Pulse Ox 98 F 79 18 114/56 L 100 09/01/17 17:54 09/01/17 17:54 09/01/17 17:54 09/01/17 18:00 09/01/17 06:00 Intake and Output: 09/01/17 09/01/17 06:59 18:59 Intake Total 483 300 Output Total 3 900 Balance 480 -600 - Medications Medications: Current Medications Allopurinol (Zyloprim) 100 mg PO BID [facility] Last Admin: 09/01/17 18:00 Dose: 100 mg Colchicine (Colocrys) 0.6 mg PO BID [facility] Last Admin: 09/01/17 18:00 Dose: 0.6 mg Digoxin (Digoxin) 0.125 mg PO Q48H [facility] Last Admin: 08/31/17 14:48 Dose: 0.125 mg Furosemide (Lasix) 20 mg IVP BID [facility] Last Admin: 09/01/17 18:00 Dose: 20 mg Milrinone Lactate/Dextrose (Primacor 20mg/100ml D5w) 100 mls @ 6.96 mls/hr IV .[id number] PRN; Protocol; 0.33 MCG/KG/MIN PRN Reason: TITRATE PER MD ORDER Last Admin: 09/01/17 03:42 Dose: 0.33 mcg/kg/min, 6.96 mls/hr Isosorbide Mononitrate (Imdur Er) 30 mg PO DAILY [facility] Last Admin: 09/01/17 10:13 Dose: 30 mg Levothyroxine Sodium (Synthroid) 112 mcg PO 0600 [facility] Last Admin: 09/01/17 05:13 Dose: 112 mcg Losartan Potassium (Cozaar) 25 mg PO DAILY [facility] Last Admin: 09/01/17 10:14 Dose: 25 mg Magnesium Oxide (Mag-Ox) 400 mg PO DAILY [facility] Last Admin: 09/01/17 10:13 Dose: 400 mg Metoprolol Succinate (Toprol Xl) 25 mg PO BRK [facility] Last Admin: 09/01/17 08:54 Dose: 25 mg Morphine Sulfate (Morphine) 0.5 mg IVP Q6H PRN PRN Reason: Pain, moderate (4-7) Last Admin: 09/01/17 14:50 Dose: 0.5 mg Pantoprazole Sodium (Protonix Ec Tab) 40 mg PO ACB [facility] Last Admin: 09/01/17 08:54 Dose: 40 mg Prednisone (Prednisone Tab) 40 mg PO DAILY [facility] Last Admin: 09/01/17 10:13 Dose: 40 mg - Labs Labs: 09/01/17 06:00 09/01/17 06:00 PT 36.0 SECONDS (9.4-12.5) H 09/01/17 06:00 INR 3.06 (0.93-1.08) H 09/01/17 06:00 APTT 44.4 Seconds (25.1-36.5) H 08/29/17 00:33 Attending/Attestation - Attestation I have personally seen and examined this patient.: Yes I have fully participated in the care of the patient.: Yes I have reviewed all pertinent clinical information, including history, physical exam and plan: Yes Notes (Text): 09/01/17 18:23 Attending note; Patient seen and examined with resident. Patient is a 87 year old female with a history of systolic heart failure with AICD and on milrinone drip, atrial fibrillation, hypothyroidism, and gout, admitted for acute gout attack and CHF exacerbation. Currently on IV Lasix. Continue IV milrinone. Cardiology evaluation appreciated. both ankle and hand swelling improving. X-ray showed no fracture. Orthopedic evaluation appreciated. Elevated INR. Hold Coumadin. Monitor closely. Acute gout; on prednisone, colchicine and allopurinol. Mildly elevated white count secondary to acute inflammation/steroid treatment. Chronic kidney disease; creatinine is stable at 1.1. Physical therapy evaluation appreciated. Subacute rehabilitation recommended. network support manager/geriatric social worker evaluation requested for discharge planning. Pending rehabilitation placement. Patient might need long-term care also. Patient is DNI DNR. Prognosis is poor. Upon discharge the patient will follow-up with PMD . 09/01/17 18:24
[2017-09-02] MEDS: Levothyroxine 112 MCG TAB PO SCH (05:27)
[2017-09-02 06:30] LABS: BASO # 0.02 K/mm3 (0.0-2.0); BASO % 0.2 % (0.0-3.0); EOS % 0.1 % (1.5-5.0); GRAN # 10.11 (1.4-6.5); GRAN % 80.1 % (50.0-68.0); HEMOGLOBIN 9.8 g/dL (12.0-16.0); LYMPH # 1.5 (1.2-3.4); MEAN CORPUSCULAR HGB CONC 32.6 g/dl (31.0-37.0); MEAN PLATELET VOLUME 10.8 fl (7.0-11.0); MONO % 7.6 % (1.0-6.0); RBC 3.16 10^6/uL (3.5-6.1); RED CELL DISTRIBUTION WIDTH 14.9 % (11.5-14.5); WHITE BLOOD COUNT 12.6 10^3/ul (4.5-11.0)
[2017-09-02 06:43] LABS: MEAN CELL VOLUME 95.3 fl (80.0-105.0)
[2017-09-02 07:00] LABS: ALB/GLOB RATIO 0.9 (1.1-1.8); ALBUMIN 2.8 g/dL (3.0-4.8); CALCIUM 8.5 mg/dL (8.4-10.5)
[2017-09-02] MEDS: Metoprolol Succinate 25 mg XL Tab PO SCH (08:38)
[2017-09-02] MEDS: Pantoprazole 40 mg EC Tab PO SCH (08:38)
--- NOTE | 2017-09-02 08:54 | CP.PCM.PN ---
Subjective - Date & Time of Evaluation Date of Evaluation: 09/02/17 Time of Evaluation: 07:00 - Subjective Subjective: Doing better. No CP or SOB. LE pains better. V/S noted. V. Paced. PE: Lungs: rhonchi Cor.: S1S2 Abd.: soft Ext: less edema Neuro.: alert Labs noted. BC X1 NG at 4 days. Objective - Vital Signs/Intake and Output Vital Signs (last 24 hours): Temp Pulse Resp BP Pulse Ox 97.6 F 70 20 119/59 L 100 09/02/17 06:00 09/02/17 08:38 09/02/17 06:00 09/02/17 08:38 09/02/17 06:00 Intake and Output: 09/02/17 09/02/17 06:59 18:59 Intake Total 286 Output Total 240 Balance 46 - Medications Medications: Current Medications Allopurinol (Zyloprim) 100 mg PO BID [facility] Last Admin: 09/01/17 18:00 Dose: 100 mg Colchicine (Colocrys) 0.6 mg PO BID [facility] Last Admin: 09/01/17 18:00 Dose: 0.6 mg Digoxin (Digoxin) 0.125 mg PO Q48H [facility] Last Admin: 08/31/17 14:48 Dose: 0.125 mg Furosemide (Lasix) 20 mg IVP BID [facility] Last Admin: 09/01/17 18:00 Dose: 20 mg Milrinone Lactate/Dextrose (Primacor 20mg/100ml D5w) 100 mls @ 6.96 mls/hr IV .[id number] PRN; Protocol; 0.33 MCG/KG/MIN PRN Reason: TITRATE PER MD ORDER Last Admin: 09/01/17 19:57 Dose: 0.33 mcg/kg/min, 6.96 mls/hr Isosorbide Mononitrate (Imdur Er) 30 mg PO DAILY [facility] Last Admin: 09/01/17 10:13 Dose: 30 mg Levothyroxine Sodium (Synthroid) 112 mcg PO 0600 [facility] Last Admin: 09/02/17 05:27 Dose: 112 mcg Losartan Potassium (Cozaar) 25 mg PO DAILY [facility] Last Admin: 09/01/17 10:14 Dose: 25 mg Magnesium Oxide (Mag-Ox) 400 mg PO DAILY [facility] Last Admin: 09/01/17 10:13 Dose: 400 mg Metoprolol Succinate (Toprol Xl) 25 mg PO BRK [facility] Last Admin: 09/02/17 08:38 Dose: 25 mg Morphine Sulfate (Morphine) 0.5 mg IVP Q6H PRN PRN Reason: Pain, moderate (4-7) Last Admin: 09/01/17 14:50 Dose: 0.5 mg Pantoprazole Sodium (Protonix Ec Tab) 40 mg PO ACB [facility] Last Admin: 09/02/17 08:38 Dose: 40 mg Prednisone (Prednisone Tab) 40 mg PO DAILY [facility] Last Admin: 09/01/17 10:13 Dose: 40 mg - Labs Labs: 09/02/17 06:00 09/02/17 06:00 PT 36.0 SECONDS (9.4-12.5) H 09/01/17 06:00 INR 3.06 (0.93-1.08) H 09/01/17 06:00 APTT 44.4 Seconds (25.1-36.5) H 08/29/17 00:33 Assessment and Plan - Assessment and Plan (Free Text) Assessment: Diffuse body,LE , knee and wrist pain, SOB/Edema R/O Acute Gout CHF IV on home milrinone infusion 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 Hold warfarin, monitor INRs. IV Lasix 20 BID Continue cardiac meds Monitor : labs, I/O, sats., INRs, etc. Will follow
[2017-09-02] MEDS: Milrinone 20mg/100ml D5W 100 ML IV PRN (09:37)
[2017-09-02] MEDS: Magnesium Oxide 400 mg Tab UD PO SCH (09:39)
--- NOTE | 2017-09-02 10:59 | PN ---
DATE OF EXAM: 09/01/2017 SUBJECTIVE: This 87-year-old female was examined at her bedside on the cardiac hirsch. I am seeing this patient for Dr. Marcum, vehicle assembler. The patient was admitted with [id number] renal failure in the setting of chronic systolic congestive heart failure. The patient was also admitted with anemia and found to have nonbleeding gastric ulcers on endoscopy. At present, the patient remains weak and deconditioned, is lying in bed and complaining of multiple arthritic complaints. She does receive chronic Primacor infusions for her advanced cardiomyopathy in her home. At present, according to Nursing, she is awaiting Social Service evaluation for placement. OBJECTIVE: GENERAL: On examination of this patient today, she remains bedridden, weak and deconditioned, but cooperative with nursing staff. VITAL SIGNS: Her compliance monitor showed atreial fibrillation, temperature was 98.1, respirations 20, pulse 70 and blood pressure 136/63 with a pulse ox of 100% room air. HEENT: Head normocephalic, atraumatic. Eyes, no icterus. Ears, clear. Throat, noninjected. NECK: Supple. HEART: With irregular S1, S2. LUNGS: With decreased breath sounds at the bases. ABDOMEN: Soft. EXTREMITIES: No edema. SKIN: Without rash. NEUROLOGICAL: Intact, but deconditioned. VASCULAR: Legs warm to touch. SKIN: Without rash. MUSCULOSKELETAL: Consistent with degenerative arthritis changes of her hands, knees and ankles. DATA: White count was 14,300, hemoglobin 10.7, hematocrit 31.9, platelets 271,000. PT/INR 3.06. Sodium 138, potassium 4.3, chloride 98, bicarb 31, BUN 43, creatinine 1.1. Admission BUN 35, creatinine 1.3. Bilirubin 0.5, AST 69, ALT 46, alkaline phosphatase 152. Chest x-ray was reviewed. It showed moderate pulmonary venous congestion. No significant pleural effusions, no pneumothorax and marked cardiomegaly. IMPRESSION: This is an 87-year-old female with [id number] renal failure in the setting of decompensated systolic congestive heart failure with comorbidities of chronic atrial fibrillation, on Coumadin therapy; chronic heart failure, on IV milrinone infusions; history of mitral regurgitation; tricuspid regurgitation; severe pulmonary hypertension; history of old stroke; hypothyroidism; DJD, gout, history of cholecystectomy in a patient who is a former smoker and DNR/DNI. The plan is discussed with the patient at the bedside, will be to continue her Colcrys, gout medication at 0.6 mg p.o. b.i.d. She continues on Cozaar 25 mg p.o. daily, digoxin 0.125 mg p.o. every 48 hours, Imdur 30 mg p.o. daily, Lasix 20 mg IV every 12 hours, magnesium oxide 400 mg p.o. daily, prednisone 40 mg p.o. daily, Primacor infusion as outlined, Protonix 40 mg daily, Synthroid 112 mcg p.o. daily, Toprol-XL 25 mg p.o. daily and Zyloprim 100 mg p.o. b.i.d. This patient is ordered to have a cardiac soft bland diet. She is ordered to have physical and occupational therapy and Social Service will be discussing placement issues with her and family. Renal function appear stable at present. Continue medications as outlined. Yuli Turner MD MTDD
[2017-09-02] MEDS: Morphine 2 mg/2 mL syringe IVP PRN ×2 (11:56→22:36)
--- NOTE | 2017-09-02 12:52 | CP.PCM.PN ---
<Delicia Burciaga - Last Filed: 09/02/17 18:33> Subjective - Date & Time of Evaluation Date of Evaluation: 09/02/17 Time of Evaluation: 12:48 - Subjective Subjective: Delicia Burciaga, PGY1, Medicine Progress Note for Dr Guerrero: Patient seen and examined at bedside. No acute events overnight. Pt reports that her pain is controlled today. Pt had 2 episodes of nonbloody, watery diarrhea. Denies cp, fevers, chills, sob, urinary symptoms, leg swelling. Objective - Vital Signs/Intake and Output Vital Signs (last 24 hours): Temp Pulse Resp BP Pulse Ox 97.9 F 69 20 124/68 100 09/02/17 12:00 09/02/17 12:00 09/02/17 12:00 09/02/17 12:00 09/02/17 06:00 Intake and Output: 09/02/17 09/02/17 06:59 18:59 Intake Total 286 100 Output Total 240 Balance 46 100 - Medications Medications: Current Medications Allopurinol (Zyloprim) 100 mg PO BID [facility] Last Admin: 09/02/17 09:39 Dose: 100 mg Colchicine (Colocrys) 0.6 mg PO BID [facility] Last Admin: 09/02/17 09:39 Dose: 0.6 mg Digoxin (Digoxin) 0.125 mg PO Q48H [facility] Last Admin: 08/31/17 14:48 Dose: 0.125 mg Furosemide (Lasix) 20 mg IVP BID [facility] Last Admin: 09/02/17 09:38 Dose: 20 mg Milrinone Lactate/Dextrose (Primacor 20mg/100ml D5w) 100 mls @ 6.96 mls/hr IV .[id number] PRN; Protocol; 0.33 MCG/KG/MIN PRN Reason: TITRATE PER MD ORDER Last Admin: 09/02/17 09:37 Dose: 0.33 mcg/kg/min, 6.96 mls/hr Isosorbide Mononitrate (Imdur Er) 30 mg PO DAILY [facility] Last Admin: 09/02/17 09:38 Dose: 30 mg Levothyroxine Sodium (Synthroid) 112 mcg PO 0600 [facility] Last Admin: 09/02/17 05:27 Dose: 112 mcg Losartan Potassium (Cozaar) 25 mg PO DAILY [facility] Last Admin: 09/02/17 09:39 Dose: 25 mg Magnesium Oxide (Mag-Ox) 400 mg PO DAILY [facility] Last Admin: 09/02/17 09:39 Dose: 400 mg Metoprolol Succinate (Toprol Xl) 25 mg PO BRK [facility] Last Admin: 09/02/17 08:38 Dose: 25 mg Morphine Sulfate (Morphine) 0.5 mg IVP Q6H PRN PRN Reason: Pain, moderate (4-7) Last Admin: 09/02/17 11:56 Dose: 0.5 mg Pantoprazole Sodium (Protonix Ec Tab) 40 mg PO ACB [facility] Last Admin: 09/02/17 08:38 Dose: 40 mg Prednisone (Prednisone Tab) 40 mg PO DAILY [facility] Last Admin: 09/02/17 09:38 Dose: 40 mg - Labs Labs: 09/02/17 06:00 09/02/17 06:00 PT 36.0 SECONDS (9.4-12.5) H 09/01/17 06:00 INR 3.06 (0.93-1.08) H 09/01/17 06:00 APTT 44.4 Seconds (25.1-36.5) H 08/29/17 00:33 - Constitutional Appears: Non-toxic, No Acute Distress - Head Exam Head Exam: ATRAUMATIC, NORMOCEPHALIC - Eye Exam Eye Exam: EOMI, PERRL. absent: Conjunctival injection, Nystagmus, Periorbital swelling, Scleral icterus Pupil Exam: NORMAL ACCOMODATION, PERRL. absent: Irregular, Miosis, Mydriatic, Unequal - ENT Exam ENT Exam: Mucous Membranes Moist - Neck Exam Neck Exam: Full ROM - Respiratory Exam Respiratory Exam: Clear to Ausculation Bilateral, NORMAL BREATHING PATTERN. absent: Accessory Muscle Use, Rales, Rhonchi, Wheezes, Respiratory Distress, Stridor - Cardiovascular Exam Cardiovascular Exam: RRR, +S1, +S2, Murmur - GI/Abdominal Exam GI & Abdominal Exam: Soft, Normal Bowel Sounds. absent: Distended, Firm, Guarding, Rigid, Tenderness, Mass, Organomegaly, Rebound - Extremities Exam Extremities Exam: Normal Inspection. absent: Calf Tenderness, Pedal Edema - Back Exam Back Exam: NORMAL INSPECTION - Neurological Exam Neurological Exam: Alert, Awake, Oriented x3 Neuro motor strength exam: Left Upper Extremity: 4, Right Upper Extremity: 4, Left Lower Extremity: 4, Right Lower Extremity: 4 - Psychiatric Exam Psychiatric exam: Normal Affect, Normal Mood - Skin Skin Exam: Dry, Normal Color, Warm Assessment and Plan - Assessment and Plan (Free Text) Assessment: 87 year old female with a history of systolic heart failure with icd and on milrinone drip, atrial fibrillation, hypothyroidism, and gout, admitted for acute gout attack, CHF exacerbation. Patient reports 2 episodes of nonbloody, watery diarrhea today, awaiting cdiff results: Watery diarrhea: - afebrile, leukocytosis trending down - Cdiff, f/u results - tolerating PO diet well - monitor LE swelling/pain: 2/2 acute gout attack vs chf exacerbation - colchicine, allopurinol - prednisone 40 mg daily - Ortho Dr Ambriz consulted. F/u recs. - Elevate legs - uric acid 6.6 - BNP elevated 8500 - Lasix 20 IV BID - Cardio consulted. appreciate recs. - monitor - PT eval recommends [facility] Supratherapeutic INR: - hold home coumadin - no active bleeding - monitor Hx of CHF -cont digoxin, cozaar, metoprolol, isosorbide mononitrate, lasix 20 IV BID Hx of Hypothyroidism: -cont home synthroid Hx of Atrial fibrillation: -Cont home metoprolol. hold coumadin in setting of supratherapeutic INR PPX -Protonix -SCDs. Coumadin held due to supratherapeutic INR. Dispo: Pt eval recommends [facility], awaiting social worker palliative care for placement - [facility] to [facility] Case seen and discussed with Dr Guerrero. Delicia Burciaga, PGY1 <Marvin Guerrero - Last Filed: 09/03/17 11:51> Objective - Vital Signs/Intake and Output Vital Signs (last 24 hours): Temp Pulse Resp BP Pulse Ox 97.8 F 69 20 118/47 L 100 09/03/17 06:00 09/03/17 09:40 09/03/17 10:00 09/03/17 09:41 09/03/17 06:00 Intake and Output: 09/03/17 09/03/17 06:59 18:59 Intake Total 183 Output Total 1000 Balance -817 - Medications Medications: Current Medications Acetaminophen (Tylenol 325mg Tab) 650 mg PO Q6H PRN PRN Reason: Pain, Mild (1-3) Last Admin: 09/03/17 09:40 Dose: 650 mg Allopurinol (Zyloprim) 100 mg PO BID [facility] Last Admin: 09/03/17 09:40 Dose: 100 mg Colchicine (Colocrys) 0.6 mg PO BID [facility] Last Admin: 09/03/17 09:43 Dose: 0.6 mg Digoxin (Digoxin) 0.125 mg PO Q48H [facility] Last Admin: 09/02/17 14:23 Dose: 0.125 mg Furosemide (Lasix) 20 mg IVP BID [facility] Last Admin: 09/03/17 09:41 Dose: 20 mg Milrinone Lactate/Dextrose (Primacor 20mg/100ml D5w) 100 mls @ 6.96 mls/hr IV .[id number] PRN; Protocol; 0.33 MCG/KG/MIN PRN Reason: TITRATE PER MD ORDER Last Admin: 09/03/17 00:52 Dose: 0.33 mcg/kg/min, 6.96 mls/hr Isosorbide Mononitrate (Imdur Er) 30 mg PO DAILY [facility] Last Admin: 09/03/17 09:40 Dose: 30 mg Levothyroxine Sodium (Synthroid) 112 mcg PO 0600 [facility] Last Admin: 09/03/17 05:32 Dose: 112 mcg Losartan Potassium (Cozaar) 25 mg PO DAILY [facility] Last Admin: 09/03/17 09:40 Dose: 25 mg Magnesium Oxide (Mag-Ox) 400 mg PO DAILY [facility] Last Admin: 09/03/17 09:40 Dose: 400 mg Metoprolol Succinate (Toprol Xl) 25 mg PO BRK [facility] Last Admin: 09/03/17 09:40 Dose: 25 mg Morphine Sulfate (Morphine) 0.5 mg IVP Q6H PRN PRN Reason: Pain, moderate (4-7) Last Admin: 09/02/17 22:36 Dose: 0.5 mg Pantoprazole Sodium (Protonix Ec Tab) 40 mg PO ACB [facility] Last Admin: 09/03/17 09:42 Dose: 40 mg Prednisone (Prednisone Tab) 40 mg PO DAILY [facility] Last Admin: 09/03/17 09:40 Dose: 40 mg Warfarin Sodium (Coumadin) 3 mg PO 1800 [facility] PRN Reason: Protocol - Labs Labs: 09/03/17 07:00 09/03/17 07:00 PT 19.6 SECONDS (9.4-12.5) H 09/03/17 06:00 INR 1.69 (0.93-1.08) H 09/03/17 06:00 APTT 28.1 Seconds (25.1-36.5) 09/03/17 07:00 Attending/Attestation - Attestation I have personally seen and examined this patient.: Yes I have fully participated in the care of the patient.: Yes I have reviewed all pertinent clinical information, including history, physical exam and plan: Yes Notes (Text): 09/03/17 11:50 Attending note; Patient seen and examined with resident. Patient is a 87 year old female with a history of systolic heart failure with AICD and on milrinone drip, atrial fibrillation, hypothyroidism, and gout, admitted for acute gout attack and CHF exacerbation. Currently on IV Lasix. Continue IV milrinone. Cardiology evaluation appreciated. both ankle and hand swelling improving. X-ray showed no fracture. Orthopedic evaluation appreciated. Elevated INR. Hold Coumadin. Monitor closely. Acute gout; on prednisone, colchicine and allopurinol. Mildly elevated white count secondary to acute inflammation/steroid treatment. Chronic kidney disease; creatinine is stable at 1.2. Physical therapy evaluation appreciated. Subacute rehabilitation recommended. manager managed backup services/social worker palliative care evaluation requested for discharge planning. Pending rehabilitation placement. Patient might need long-term care also. Patient is DNI DNR. Prognosis is poor. Upon discharge the patient will follow-up with PMD .
[2017-09-02] MEDS: Digoxin 125 mcg (0.125 mg) Tab PO SCH (14:23)
[2017-09-03] MEDS: Milrinone 20mg/100ml D5W 100 ML IV PRN ×2 (00:52→18:06)
[2017-09-03] MEDS: Levothyroxine 112 MCG TAB PO SCH (05:32)
[2017-09-03 06:54] LABS: INR 1.69 (0.93-1.08); PROTHROMBIN TIME 19.6 SECONDS (9.4-12.5)
[2017-09-03 07:33] LABS: EOS % 0.1 % (1.5-5.0); GRAN # 10.39 (1.4-6.5); GRAN % 79.6 % (50.0-68.0); LYMPH # 1.9 (1.2-3.4); LYMPH % 14.2 % (22.0-35.0); MEAN CELL VOLUME 91.8 fl (80.0-105.0); MEAN CORPUSCULAR HEMOGLOBIN 30.4 pg (25.0-35.0); MEAN CORPUSCULAR HGB CONC 33.1 g/dl (31.0-37.0); MEAN PLATELET VOLUME 10.1 fl (7.0-11.0); MONO # 0.8 (0.1-0.6); MONO % 6.1 % (1.0-6.0); RBC 3.29 10^6/uL (3.5-6.1); WHITE BLOOD COUNT 13.1 10^3/ul (4.5-11.0)
[2017-09-03 07:51] LABS: ALB/GLOB RATIO 0.9 (1.1-1.8); ALBUMIN 2.9 g/dL (3.0-4.8); CALCIUM 8.7 mg/dL (8.4-10.5)
[2017-09-03] MEDS: Metoprolol Succinate 25 mg XL Tab PO SCH (09:40)
[2017-09-03] MEDS: Magnesium Oxide 400 mg Tab UD PO SCH (09:40)
[2017-09-03] MEDS: Pantoprazole 40 mg EC Tab PO SCH (09:42)
--- NOTE | 2017-09-03 11:15 | PN ---
DATE: 09/03/2017 SUBJECTIVE: The patient is seen lying in bed on telemetry. Her joint pain including her hands and knees feel much better. She denies any dyspnea. CURRENT MEDICATIONS: Include colchicine 0.6 mg b.i.d., Coumadin, Cozaar 25 mg daily, digoxin 0.125 mg every other day, Imdur 30 mg daily, Lasix 20 mg IV b.i.d., prednisone 40 mg daily, milrinone infusion, Protonix 40 mg daily, Synthroid 112 mcg daily, Toprol-XL 25 mg daily and allopurinol 100 mg b.i.d. OBJECTIVE: GENERAL: She is a very elderly woman, appears comfortable at the present time. VITAL SIGNS: Her blood pressure is 118/50 with a pulse of 70 with ventricular pacing, respirations are 16. She is afebrile. HEENT: No JVD. CHEST: Few scattered rhonchi. HEART: PMI displaced laterally with soft tones noted and systolic murmur present in the lower left sternal border and apex. ABDOMEN: Soft, nontender. Normoactive bowel sounds. EXTREMITIES: No edema. DIAGNOSTIC DATA: Potassium 4.1, BUN and creatinine 42 and 1.2. White count 13.1, hemoglobin and hematocrit 10 and 30.2, platelet count of 243,000. INR 1.69. IMPRESSION: 1. Congestive heart failure, chronic systolic secondary to congestive cardiomyopathy. 2. Multiple arthralgias secondary to gout. 3. Severe mitral and tricuspid regurgitation. 4. Chronic atrial fibrillation with controlled rate. 5. Status post implantable cardioverter-defibrillator implant. Rest of problems as noted. RECOMMENDATIONS: Her current medications should be continued. Caution will need to be had with use of Coumadin and prednisone given increased risk of bleeding. The patient has been evaluated to be transferred to the TCU. We will continue to follow along and make further recommendations as appropriate. Dino Thompson MD
--- NOTE | 2017-09-03 11:31 | CP.PCM.PN ---
<Delicia Burciaga - Last Filed: 09/03/17 11:27> Subjective - Date & Time of Evaluation Date of Evaluation: 09/03/17 Time of Evaluation: 11:27 - Subjective Subjective: Delicia Burciaga, PGY1, Progress Note for Dr Guerrero: Patient seen and examined at bedside. No acute events overnight. Pt reports feeling well. Patient had 2 episodes of watery diarrhea in AM yesterday. Denies cp, sob, abdominal pain, further episodes of watery diarrhea, leg swelling. Objective - Vital Signs/Intake and Output Vital Signs (last 24 hours): Temp Pulse Resp BP Pulse Ox 97.8 F 69 20 118/47 L 100 09/03/17 06:00 09/03/17 09:40 09/03/17 06:00 09/03/17 09:41 09/03/17 06:00 Intake and Output: 09/03/17 09/03/17 06:59 18:59 Intake Total 183 Output Total 1000 Balance -817 - Medications Medications: Current Medications Acetaminophen (Tylenol 325mg Tab) 650 mg PO Q6H PRN PRN Reason: Pain, Mild (1-3) Last Admin: 09/03/17 09:40 Dose: 650 mg Allopurinol (Zyloprim) 100 mg PO BID [facility] Last Admin: 09/03/17 09:40 Dose: 100 mg Colchicine (Colocrys) 0.6 mg PO BID [facility] Last Admin: 09/03/17 09:43 Dose: 0.6 mg Digoxin (Digoxin) 0.125 mg PO Q48H [facility] Last Admin: 09/02/17 14:23 Dose: 0.125 mg Furosemide (Lasix) 20 mg IVP BID [facility] Last Admin: 09/03/17 09:41 Dose: 20 mg Milrinone Lactate/Dextrose (Primacor 20mg/100ml D5w) 100 mls @ 6.96 mls/hr IV .[id number] PRN; Protocol; 0.33 MCG/KG/MIN PRN Reason: TITRATE PER MD ORDER Last Admin: 09/03/17 00:52 Dose: 0.33 mcg/kg/min, 6.96 mls/hr Isosorbide Mononitrate (Imdur Er) 30 mg PO DAILY [facility] Last Admin: 09/03/17 09:40 Dose: 30 mg Levothyroxine Sodium (Synthroid) 112 mcg PO 0600 [facility] Last Admin: 09/03/17 05:32 Dose: 112 mcg Losartan Potassium (Cozaar) 25 mg PO DAILY [facility] Last Admin: 09/03/17 09:40 Dose: 25 mg Magnesium Oxide (Mag-Ox) 400 mg PO DAILY [facility] Last Admin: 09/03/17 09:40 Dose: 400 mg Metoprolol Succinate (Toprol Xl) 25 mg PO BRK [facility] Last Admin: 09/03/17 09:40 Dose: 25 mg Morphine Sulfate (Morphine) 0.5 mg IVP Q6H PRN PRN Reason: Pain, moderate (4-7) Last Admin: 09/02/17 22:36 Dose: 0.5 mg Pantoprazole Sodium (Protonix Ec Tab) 40 mg PO ACB [facility] Last Admin: 09/03/17 09:42 Dose: 40 mg Prednisone (Prednisone Tab) 40 mg PO DAILY [facility] Last Admin: 09/03/17 09:40 Dose: 40 mg Warfarin Sodium (Coumadin) 3 mg PO 1800 [facility] PRN Reason: Protocol - Labs Labs: 09/03/17 07:00 09/03/17 07:00 PT 19.6 SECONDS (9.4-12.5) H 09/03/17 06:00 INR 1.69 (0.93-1.08) H 09/03/17 06:00 APTT 28.1 Seconds (25.1-36.5) 09/03/17 07:00 - Additional Findings Additional findings: - Constitutional Appears: Non-toxic, No Acute Distress - Head Exam Head Exam: ATRAUMATIC, NORMOCEPHALIC - Eye Exam Eye Exam: EOMI, PERRL. absent: Conjunctival injection, Nystagmus, Scleral icterus Pupil Exam: NORMAL ACCOMODATION, PERRL. absent: Fixed, Irregular, Miosis, Unequal - ENT Exam ENT Exam: Mucous Membranes Moist - Neck Exam Neck Exam: Full ROM - Respiratory Exam Respiratory Exam: Decreased Breath Sounds - Cardiovascular Exam Cardiovascular Exam: Irregular Rhythm - GI/Abdominal Exam GI & Abdominal Exam: Soft, Normal Bowel Sounds. absent: Firm, Guarding, Rigid, Tenderness, Mass, Organomegaly, Rebound - Extremities Exam Extremities Exam: No swelling. absent: Calf Tenderness Additional comments: - Back Exam Back Exam: NORMAL INSPECTION - Neurological Exam Neurological Exam: Alert, Awake, Oriented x3 - Psychiatric Exam Psychiatric exam: Normal Affect, Normal Mood - Skin Skin Exam: Dry, Normal Color, Warm Assessment and Plan - Assessment and Plan (Free Text) Assessment: 87 year old female with a history of systolic heart failure with icd and on milrinone drip, atrial fibrillation, hypothyroidism, and gout, admitted for acute gout attack, CHF exacerbation: Watery diarrhea: 2/2 cochicine SE vs r/o c diff - awaiting cdiff results - monitor - tolerating PO diet well LE swelling/pain: 2/2 acute gout attack vs chf exacerbation - colchicine, allopurinol - prednisone 40 mg daily - Ortho Dr Ambriz consulted. F/u recs. - Elevate legs - uric acid 6.6 - BNP elevated 8500 - Lasix 20 IV BID - Cardio consulted. appreciate recs. - monitor - PT eval recommends [facility] Hx of CHF -cont digoxin, cozaar, metoprolol, isosorbide mononitrate, lasix 20 IV BID Hx of Hypothyroidism: -cont home synthroid Hx of Atrial fibrillation: -Cont home metoprolol. -resume coumadin home dosage 3 mg as INR 1.69 today. PPX -Protonix -Coumadin Dispo: PT eval recommends [facility], awaiting social welfare administrator for placement - [facility] to [facility]. Patient will follow up with PMD Dr Green outpatient. Case seen and discussed with Dr Guerrero. Delicia Burciaga, PGY1 <Marvin Geurrero - Last Filed: 09/03/17 11:52> Objective - Vital Signs/Intake and Output Vital Signs (last 24 hours): Temp Pulse Resp BP Pulse Ox 97.8 F 69 20 118/47 L 100 09/03/17 06:00 09/03/17 09:40 09/03/17 10:00 09/03/17 09:41 09/03/17 06:00 Intake and Output: 09/03/17 09/03/17 06:59 18:59 Intake Total 183 Output Total 1000 Balance -817 - Medications Medications: Current Medications Acetaminophen (Tylenol 325mg Tab) 650 mg PO Q6H PRN PRN Reason: Pain, Mild (1-3) Last Admin: 09/03/17 09:40 Dose: 650 mg Allopurinol (Zyloprim) 100 mg PO BID [facility] Last Admin: 09/03/17 09:40 Dose: 100 mg Colchicine (Colocrys) 0.6 mg PO BID [facility] Last Admin: 09/03/17 09:43 Dose: 0.6 mg Digoxin (Digoxin) 0.125 mg PO Q48H [facility] Last Admin: 09/02/17 14:23 Dose: 0.125 mg Furosemide (Lasix) 20 mg IVP BID [facility] Last Admin: 09/03/17 09:41 Dose: 20 mg Milrinone Lactate/Dextrose (Primacor 20mg/100ml D5w) 100 mls @ 6.96 mls/hr IV .[id number] PRN; Protocol; 0.33 MCG/KG/MIN PRN Reason: TITRATE PER MD ORDER Last Admin: 09/03/17 00:52 Dose: 0.33 mcg/kg/min, 6.96 mls/hr Isosorbide Mononitrate (Imdur Er) 30 mg PO DAILY [facility] Last Admin: 09/03/17 09:40 Dose: 30 mg Levothyroxine Sodium (Synthroid) 112 mcg PO 0600 [facility] Last Admin: 09/03/17 05:32 Dose: 112 mcg Losartan Potassium (Cozaar) 25 mg PO DAILY [facility] Last Admin: 09/03/17 09:40 Dose: 25 mg Magnesium Oxide (Mag-Ox) 400 mg PO DAILY [facility] Last Admin: 09/03/17 09:40 Dose: 400 mg Metoprolol Succinate (Toprol Xl) 25 mg PO BRK [facility] Last Admin: 09/03/17 09:40 Dose: 25 mg Morphine Sulfate (Morphine) 0.5 mg IVP Q6H PRN PRN Reason: Pain, moderate (4-7) Last Admin: 09/02/17 22:36 Dose: 0.5 mg Pantoprazole Sodium (Protonix Ec Tab) 40 mg PO ACB [facility] Last Admin: 09/03/17 09:42 Dose: 40 mg Prednisone (Prednisone Tab) 40 mg PO DAILY [facility] Last Admin: 09/03/17 09:40 Dose: 40 mg Warfarin Sodium (Coumadin) 3 mg PO 1800 [facility] PRN Reason: Protocol - Labs Labs: 09/03/17 07:00 09/03/17 07:00 PT 19.6 SECONDS (9.4-12.5) H 09/03/17 06:00 INR 1.69 (0.93-1.08) H 09/03/17 06:00 APTT 28.1 Seconds (25.1-36.5) 09/03/17 07:00 Attending/Attestation - Attestation I have personally seen and examined this patient.: Yes I have fully participated in the care of the patient.: Yes I have reviewed all pertinent clinical information, including history, physical exam and plan: Yes Notes (Text): 09/03/17 11:51 Attending note; Patient seen and examined with resident. Patient is a 87 year old female with a history of systolic heart failure with AICD and on milrinone drip, atrial fibrillation, hypothyroidism, and gout, admitted for acute gout attack and CHF exacerbation. Currently on IV Lasix. Continue IV milrinone. Cardiology evaluation appreciated. both ankle and hand swelling improving. X-ray showed no fracture. Orthopedic evaluation appreciated. Elevated INR. Hold Coumadin. Monitor closely. Acute gout; on prednisone, colchicine and allopurinol. Mildly elevated white count secondary to acute inflammation/steroid treatment. Chronic kidney disease; creatinine is stable at 1.2. Physical therapy evaluation appreciated. Subacute rehabilitation recommended. him manager/social welfare administrator evaluation requested for discharge planning. Pending rehabilitation placement. Patient might need long-term care also. Patient is DNI DNR. pending [facility] placement. Upon discharge the patient will follow-up with PMD .
--- NOTE | 2017-09-03 12:13 | PN ---
DATE: 09/02/2017 SUBJECTIVE: This 87-year-old female was examined at her bedside in the presence of her nurse, Sumi Helm, registered nurse. The patient was lying in her bed. She is weak and deconditioned. She complains of difficulty with ambulation and persistent arthritic pain. At present, she is denying any fever, chills, shortness of breath and on the manager cardiac remains in atrial fibrillation rhythm. PHYSICAL EXAMINATION: VITAL SIGNS:: Her temperature was 97.9, respirations 20, blood pressure 124/68 and pulse 71, pulse ox 94% on room air. HEENT: Head normocephalic, atraumatic. Eyes: No icterus. Ears: Clear. Throat: Noninjected. NECK: Supple. HEART: Was irregular S1, S2. LUNGS: No wheezing. ABDOMEN: Soft. EXTREMITIES: No edema. SKIN: Without rash. NEUROLOGICAL: Deconditioned. VASCULAR: Legs warm to touch. PSYCHOLOGICAL: Alert and anxious. MUSCULOSKELETAL: Degenerative changes of her hands, knees and ankles . LABORATORY DATA: Labs show a white count of 12,600, hemoglobin 9.8, hematocrit 30.1, platelets 238,000. PT/INR 3.06. Sodium 139, K is 4, chloride 100, bicarb 33, BUN 40, creatinine 1.2, random blood sugar 118. Estimated GFR 52 mL/minute. Bilirubin 0.5, AST 58, ALT 47 and alk phos 126. Stool for occult blood was negative. IMPRESSION: An 87-year-old female with chronic renal failure stage III and comorbidities of degenerative arthritis; gout; advanced systolic congestive heart failure, chronic; chronic hypertension; chronic atrial fibrillation; atherosclerotic heart disease; peptic ulcer disease; gastroesophageal reflux disease; hypothyroidism; deconditioning. Plan as discussed with the patient and nursing will be to continue Zyloprim 100 mg p.o. b.i.d., Toprol XL 25 mg p.o. daily, Synthroid 112 mcg p.o. daily, Protonix 40 mg p.o. daily, milrinone 0.33 mcg/kg/minute, prednisone 40 mg p.o. daily, mag oxide 400 mg p.o. daily, Lasix 20 mg IV b.i.d., Imdur 30 mg p.o. daily, digoxin 0.1 25 mg p.o. every 48 hours, Cozaar 25 mg p.o. daily, colchicine 0.6 mg p.o. b.i.d. The patient is ordered to have a heart-healthy bland diet. She continues on the cardiac unit. She is ordered to be out of bed to chair with physical therapy for reconditioning and gait training. Case was reviewed with Magdalena Nowak from [employer]. Apparently, the patient and family are working on subacute rehab with intentions of long-term intermediate placement. The patient will continue to have electrolytes, CBC and INR monitored while in the [facility]. She remains a DNR/DNI and comfort measures are being offered. Yuli Turner MD MTDD
--- NOTE | 2017-09-03 13:18 | PN ---
DATE: 09/03/2017 SUBJECTIVE: This 87-year-old female was examined at her bedside in the presence of her daughter, Anum. The patient was out of bed to chair. 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 PHYSICAL EXAMINATION: VITAL SIGNS: Temperature is 97.8, respirations 20, pulse 70, blood pressure 124/63, pulse ox of 100% on room air. HEENT: Head: Normocephalic, atraumatic. Eyes: No icterus. Ears: Clear. Throat: Noninjected. NECK: Supple. HEART: Irregular S1, S2. LUNGS: Clear. ABDOMEN: Soft. EXTREMITIES: No edema. SKIN: Without rash. NEUROLOGICAL: Intact. PSYCHOLOGICAL: Alert. VASCULAR: Legs warm to touch. LABORATORY DATA: White count 13,100, hemoglobin 10, hematocrit 30.2, platelets 243,000. Sodium 134, K 4.1, chloride 96, bicarb 33, BUN 42, creatinine 1.2. Estimated GFR 52 mL per minute. Bilirubin 0.6, AST 62, ALT 60 and alk phos 118. Stool for occult blood was negative. IMPRESSION: An 87-year-old female with chronic renal failure stage 3; chronic hypertension; history of chronic systolic congestive heart failure, on IV milrinone; also with history of degenerative arthritis; gout; atrial fibrillation, on oral Coumadin; history of hypomagnesemia, corrected on ; history of hypothyroidism; peptic ulcer disease and failure to thrive. PLAN: The plan will be for subacute and long-term custodial placement. She will continue on Colcrys, Coumadin, Cozaar, digoxin, Imdur, Lasix, mag oxide, prednisone, IV milrinone, Protonix, Synthroid, Toprol-XL and Zyloprim. The patient is scheduled for serial INRs while on Coumadin, comprehensive metabolic panel and CBC. Her stool for C. diff toxin has been received, but not reported. She will continue on physical therapy, heart-healthy diet and all of the above was discussed in detail with her daughter, Anum at bedside. All questions were answered. Yuli Turner MD
[2017-09-04] MEDS: Levothyroxine 112 MCG TAB PO SCH (06:52)
[2017-09-04] MEDS: Pantoprazole 40 mg EC Tab PO SCH (06:52)
[2017-09-04] MEDS: Milrinone 20mg/100ml D5W 100 ML IV PRN ×2 (06:52→21:10)
[2017-09-04 07:08] LABS: ALB/GLOB RATIO 0.9 (1.1-1.8); ALBUMIN 2.9 g/dL (3.0-4.8); CALCIUM 8.7 mg/dL (8.4-10.5)
[2017-09-04 07:24] LABS: EOS % 0.3 % (1.5-5.0); GRAN # 10.67 (1.4-6.5); GRAN % 79.2 % (50.0-68.0); HEMOGLOBIN 10.2 g/dL (12.0-16.0); LYMPH # 1.9 (1.2-3.4); LYMPH % 13.9 % (22.0-35.0); MEAN CELL VOLUME 91.7 fl (80.0-105.0); MEAN CORPUSCULAR HEMOGLOBIN 30.3 pg (25.0-35.0); MEAN PLATELET VOLUME 10.3 fl (7.0-11.0); MONO # 0.9 (0.1-0.6); MONO % 6.6 % (1.0-6.0); RBC 3.37 10^6/uL (3.5-6.1); RED CELL DISTRIBUTION WIDTH 14.8 % (11.5-14.5); WHITE BLOOD COUNT 13.5 10^3/ul (4.5-11.0)
[2017-09-04 07:41] LABS: INR 1.44 (0.93-1.08); PARTIAL THROMBOPLASTIN TIME 27.3 Seconds (25.1-36.5); PROTHROMBIN TIME 16.7 SECONDS (9.4-12.5)
--- NOTE | 2017-09-04 08:13 | PN ---
DATE: 09/04/2017 SUBJECTIVE: The patient was seen lying in bed on telemetry. She is currently comfortable. She did have several episodes of loose stool yesterday. She denies any dyspnea. Her joint pain is improved. CURRENT MEDICATIONS: Include IV milrinone, colchicine 0.6 mg b.i.d., Coumadin, Cozaar 25 mg daily, digoxin 0.125 mg every other day, Imdur 30 mg daily, Lasix 20 mg b.i.d., prednisone 40 mg daily, Protonix 40 mg daily, Synthroid 112 mcg daily, Toprol-XL 25 mg daily and allopurinol 100 mg b.i.d. OBJECTIVE: GENERAL: She is a very elderly woman who appears comfortable at rest. VITAL SIGNS: Her blood pressure is 104/50, pulse of 70, respirations are 16. She is afebrile. HEENT: No JVD. CHEST: A few scattered rhonchi. HEART: PMI displaced laterally with soft tones noted. ABDOMEN: Soft, nontender. Normoactive bowel sounds. EXTREMITIES: No edema. DIAGNOSTIC DATA: Morning blood work is pending. IMPRESSION: 1. Chronic congestive heart failure, severe systolic dysfunction secondary to congestive cardiomyopathy. 2. Recurrent gouty attacks. 3. Severe mitral and tricuspid regurgitation. 4. Chronic atrial fibrillation. 5. Status post implantable cardioverter-defibrillator implant. 6. Chronic anemia. 7. Rest of problems as noted. RECOMMENDATIONS: Current cardiac medications will be continued. A reduction in her colchicine dose may be needed if her bowel symptoms worsen. Continued sodium and fluid restriction are advised. Dino Thompson MD
[2017-09-04] MEDS: Enoxaparin 80 mg Syringe SC SCH ×2 (08:33→20:49)
[2017-09-04] MEDS: Metoprolol Succinate 25 mg XL Tab PO SCH (08:34)
[2017-09-04] MEDS: Magnesium Oxide 400 mg Tab UD PO SCH (10:06)
--- NOTE | 2017-09-04 10:53 | CP.PCM.PN ---
<Delicia Burciaga - Last Filed: 09/04/17 10:50> Subjective - Date & Time of Evaluation Date of Evaluation: 09/04/17 Time of Evaluation: 10:50 - Subjective Subjective: Delicia Burciaga, PGY1, Progress Note for Dr Guerrero: Patient seen and examined at bedside. No acute events overnight. Denies cp, sob , abdominal pain, further episodes of watery diarrhea, leg swelling. Objective - Vital Signs/Intake and Output Vital Signs (last 24 hours): Temp Pulse Resp BP Pulse Ox 98.0 F 69 20 128/64 100 09/04/17 06:00 09/04/17 10:07 09/04/17 06:00 09/04/17 10:07 09/04/17 06:00 Intake and Output: 09/04/17 09/04/17 06:59 18:59 Intake Total 520 Balance 520 - Medications Medications: Current Medications Acetaminophen (Tylenol 325mg Tab) 650 mg PO Q6H PRN PRN Reason: Pain, Mild (1-3) Last Admin: 09/03/17 09:40 Dose: 650 mg Allopurinol (Zyloprim) 100 mg PO BID [facility] Last Admin: 09/04/17 10:07 Dose: 100 mg Colchicine (Colocrys) 0.6 mg PO BID [facility] Last Admin: 09/04/17 10:06 Dose: 0.6 mg Digoxin (Digoxin) 0.125 mg PO Q48H [facility] Last Admin: 09/02/17 14:23 Dose: 0.125 mg Enoxaparin Sodium (Lovenox) 70 mg SC Q12H [facility] PRN Reason: Protocol Stop: 09/04/17 20:01 Last Admin: 09/04/17 08:33 Dose: 70 mg Furosemide (Lasix) 20 mg IVP BID [facility] Last Admin: 09/04/17 10:06 Dose: 20 mg Milrinone Lactate/Dextrose (Primacor 20mg/100ml D5w) 100 mls @ 6.96 mls/hr IV .[id number] PRN; Protocol; 0.33 MCG/KG/MIN PRN Reason: TITRATE PER MD ORDER Last Admin: 09/04/17 06:52 Dose: 0.33 mcg/kg/min, 6.96 mls/hr Isosorbide Mononitrate (Imdur Er) 30 mg PO DAILY [facility] Last Admin: 09/04/17 10:06 Dose: 30 mg Levothyroxine Sodium (Synthroid) 112 mcg PO 0600 [facility] Last Admin: 09/04/17 06:52 Dose: 112 mcg Losartan Potassium (Cozaar) 25 mg PO DAILY [facility] Last Admin: 09/04/17 10:07 Dose: 25 mg Magnesium Oxide (Mag-Ox) 400 mg PO DAILY [facility] Last Admin: 09/04/17 10:06 Dose: 400 mg Metoprolol Succinate (Toprol Xl) 25 mg PO BRK [facility] Last Admin: 09/04/17 08:34 Dose: 25 mg Morphine Sulfate (Morphine) 0.5 mg IVP Q6H PRN PRN Reason: Pain, moderate (4-7) Last Admin: 09/02/17 22:36 Dose: 0.5 mg Pantoprazole Sodium (Protonix Ec Tab) 40 mg PO ACB [facility] Last Admin: 09/04/17 06:52 Dose: 40 mg Prednisone (Prednisone Tab) 40 mg PO DAILY [facility] Last Admin: 09/04/17 10:07 Dose: 40 mg Warfarin Sodium (Coumadin) 4 mg PO 1800 [facility] PRN Reason: Protocol - Labs Labs: 09/04/17 06:00 09/04/17 06:00 PT 16.7 SECONDS (9.4-12.5) H 09/04/17 06:00 INR 1.44 (0.93-1.08) H 09/04/17 06:00 APTT 27.3 Seconds (25.1-36.5) 09/04/17 06:00 - Additional Findings Additional findings: - Constitutional Appears: Non-toxic, No Acute Distress - Head Exam Head Exam: ATRAUMATIC, NORMOCEPHALIC - Eye Exam Eye Exam: EOMI, PERRL. absent: Conjunctival injection, Nystagmus, Scleral icterus Pupil Exam: NORMAL ACCOMODATION, PERRL. absent: Fixed, Irregular, Miosis, Unequal - ENT Exam ENT Exam: Mucous Membranes Moist - Neck Exam Neck Exam: Full ROM - Respiratory Exam Respiratory Exam: Decreased Breath Sounds - Cardiovascular Exam Cardiovascular Exam: Irregular Rhythm - GI/Abdominal Exam GI & Abdominal Exam: Soft, Normal Bowel Sounds. absent: Firm, Guarding, Rigid, Tenderness, Mass, Organomegaly, Rebound - Extremities Exam Extremities Exam: No swelling. absent: Calf Tenderness Additional comments: - Back Exam Back Exam: NORMAL INSPECTION - Neurological Exam Neurological Exam: Alert, Awake, Oriented x3 - Psychiatric Exam Psychiatric exam: Normal Affect, Normal Mood - Skin Skin Exam: Dry, Normal Color, Warm Assessment and Plan - Assessment and Plan (Free Text) Assessment: 87 year old female with a history of systolic heart failure with icd and on milrinone drip, atrial fibrillation, hypothyroidism, and gout, admitted for acute gout attack, CHF exacerbation: Watery diarrhea: 2/2 cochicine SE vs r/o c diff - awaiting cdiff results - resolved - monitor - tolerating PO diet well LE swelling/pain: 2/2 acute gout attack vs chf exacerbation - colchicine, allopurinol - prednisone tapering down to 30 mg daily - Ortho Dr Ambriz consulted. F/u recs. - Elevate legs - uric acid 6.6 - BNP elevated 8500 - Lasix 20 IV BID - Cardio consulted. appreciate recs. - monitor - PT misael recommends [facility] Hx of CHF -cont digoxin, cozaar, metoprolol, isosorbide mononitrate, lasix 20 IV BID Hx of Hypothyroidism: -cont home synthroid Hx of Atrial fibrillation: -Cont home metoprolol. -resume coumadin home dosage 3 mg as INR 1.69 today. PPX -Protonix -Coumadin Dispo: PT misael recommends [facility], awaiting director social welfare for placement - [facility] to [facility]. Patient will follow up with PMD Dr Green outpatient. Case seen and discussed with Dr Guerrero. Delicia Burciaga, PGY1 <Marvin Guerrero - Last Filed: 09/04/17 11:03> Objective - Vital Signs/Intake and Output Vital Signs (last 24 hours): Temp Pulse Resp BP Pulse Ox 98.0 F 69 20 128/64 100 09/04/17 06:00 09/04/17 10:07 09/04/17 06:00 09/04/17 10:07 09/04/17 06:00 Intake and Output: 09/04/17 09/04/17 06:59 18:59 Intake Total 520 Balance 520 - Medications Medications: Current Medications Acetaminophen (Tylenol 325mg Tab) 650 mg PO Q6H PRN PRN Reason: Pain, Mild (1-3) Last Admin: 09/03/17 09:40 Dose: 650 mg Allopurinol (Zyloprim) 100 mg PO BID [facility] Last Admin: 09/04/17 10:07 Dose: 100 mg Colchicine (Colocrys) 0.6 mg PO BID [facility] Last Admin: 09/04/17 10:06 Dose: 0.6 mg Digoxin (Digoxin) 0.125 mg PO Q48H [facility] Last Admin: 09/02/17 14:23 Dose: 0.125 mg Enoxaparin Sodium (Lovenox) 70 mg SC Q12H [facility] PRN Reason: Protocol Stop: 09/04/17 20:01 Last Admin: 09/04/17 08:33 Dose: 70 mg Furosemide (Lasix) 20 mg IVP BID [facility] Last Admin: 09/04/17 10:06 Dose: 20 mg Milrinone Lactate/Dextrose (Primacor 20mg/100ml D5w) 100 mls @ 6.96 mls/hr IV .[id number] PRN; Protocol; 0.33 MCG/KG/MIN PRN Reason: TITRATE PER MD ORDER Last Admin: 09/04/17 06:52 Dose: 0.33 mcg/kg/min, 6.96 mls/hr Isosorbide Mononitrate (Imdur Er) 30 mg PO DAILY [facility] Last Admin: 09/04/17 10:06 Dose: 30 mg Levothyroxine Sodium (Synthroid) 112 mcg PO 0600 [facility] Last Admin: 09/04/17 06:52 Dose: 112 mcg Losartan Potassium (Cozaar) 25 mg PO DAILY [facility] Last Admin: 09/04/17 10:07 Dose: 25 mg Magnesium Oxide (Mag-Ox) 400 mg PO DAILY [facility] Last Admin: 09/04/17 10:06 Dose: 400 mg Metoprolol Succinate (Toprol Xl) 25 mg PO BRK [facility] Last Admin: 09/04/17 08:34 Dose: 25 mg Morphine Sulfate (Morphine) 0.5 mg IVP Q6H PRN PRN Reason: Pain, moderate (4-7) Last Admin: 09/02/17 22:36 Dose: 0.5 mg Pantoprazole Sodium (Protonix Ec Tab) 40 mg PO ACB [facility] Last Admin: 09/04/17 06:52 Dose: 40 mg Prednisone (Prednisone Tab) 30 mg PO DAILY [facility] Warfarin Sodium (Coumadin) 4 mg PO 1800 [facility] PRN Reason: Protocol - Labs Labs: 09/04/17 06:00 09/04/17 06:00 PT 16.7 SECONDS (9.4-12.5) H 09/04/17 06:00 INR 1.44 (0.93-1.08) H 09/04/17 06:00 APTT 27.3 Seconds (25.1-36.5) 09/04/17 06:00 Attending/Attestation - Attestation I have personally seen and examined this patient.: Yes I have fully participated in the care of the patient.: Yes I have reviewed all pertinent clinical information, including history, physical exam and plan: Yes Notes (Text): 09/04/17 11:01 Attending note; Patient seen and examined with resident. Patient is a 87 year old female with a history of systolic heart failure with AICD and on milrinone drip, atrial fibrillation, hypothyroidism, and gout, admitted for acute gout attack and CHF exacerbation. Currently on IV Lasix. Continue IV milrinone. Lost about 10 lbs so far. Cardiology evaluation appreciated. both ankle and hand swelling improving. X-ray showed no fracture. Orthopedic evaluation appreciated. INR is low. Started on coumadin and bridging therapy with lovenox. Acute gout; on prednisone, colchicine and allopurinol. Taper and dc prednisone. Mildly elevated white count secondary to acute inflammation/steroid treatment. Blood and urine culture is negative. Chronic kidney disease; creatinine is stable at 1.2. Physical therapy evaluation appreciated. Subacute rehabilitation recommended. Patient is DNI DNR. pending [facility] placement. Upon discharge the patient will follow-up with PMD . 09/04/17 11:03
[2017-09-04] MEDS: Digoxin 125 mcg (0.125 mg) Tab PO SCH (13:31)
--- NOTE | 2017-09-04 16:20 | PN ---
DATE: 09/04/2017 SUBJECTIVE: This 87-year-old female remains on the cardiac hirsch at the [facility]. She continues on oral Coumadin for chronic atrial fibrillation and states her degenerative and gouty arthritis are feeling better on twice daily Colcrys as well as Zyloprim. She denied any fever, chills, chest pain or shortness of breath and remains in an atrial fibrillation rhythm on the athletic monitor. PHYSICAL EXAMINATION: VITAL SIGNS: Temperature was 97.9, respirations 18, pulse 70 and blood pressure 125/56 with a pulse ox of 100% on 2 L nasal O2. HEENT: Head is normocephalic, atraumatic. Eyes: No icterus. Ears: Clear. Throat: Noninjected. NECK: Supple. HEART: Irregular S1, S2. LUNGS: Clear. ABDOMEN: Soft. EXTREMITIES: No edema. SKIN: Without rash. NEUROLOGICAL: Intact. PSYCHOLOGICAL: Alert. VASCULAR: Her legs are warm to touch. LABORATORY DATA: Her white count was 13,500, hemoglobin 10.2, hematocrit 30.6, platelets 249,000. PT/INR 1.44. Sodium 134, K 4.2, chloride 97, bicarb 34, BUN 42, creatinine 1.2. Estimated GFR 52 mL per minute. Phosphorous 1.7, calcium 8.7, percent saturation 34. Iron level 73. Bilirubin 0.5, AST 54, ALT 58, alk phos 113. Stool for occult blood is negative. IMPRESSION: An 87-year-old female with chronic renal failure stage III and comorbidities of gouty arthritis; degenerative arthritis; [id number] systolic decompensated congestive heart failure, on IV milrinone; atrial fibrillation, on oral Coumadin; chronic hypertension; atherosclerotic heart disease; subtherapeutic PT/INR; history of hypomagnesemia; reactive leukocytosis, on oral prednisone; peptic ulcer disease with gastroesophageal reflux disease; hypertension and hypothyroidism. PLAN: The plan for this patient will be to continue Colcrys 0.6 mg p.o. b.i.d., Coumadin 4 mg p.o. daily. She is ordered to have Lovenox 70 mg subcu every 12 until her INR is therapeutic. She will continue on Cozaar 25 mg p.o. daily, digoxin 0.125 mg p.o. every 48 hours, Imdur 30 mg p.o. daily, Lasix 20 mg IV b.i.d. while continuing her milrinone, Primacor cardiac drip at 0.33 mcg/kg/minute. She continues on prednisone 30 mg p.o. daily, Protonix 40 mg p.o. daily, Synthroid 112 mcg p.o. daily, Toprol-XL 25 mg p.o. daily and Zyloprim 100 mg p.o. b.i.d. She is scheduled for repeat PT/INR, CBC and comprehensive metabolic panel in the a.m. She awaits admission for subacute rehab and possible long-term intermediate placement. She is continuing on a heart-healthy diet and physical therapy and all of the above was reviewed in detail with her daughter, Anum. Greater than 35 minutes was spent in the care, discussion of this patient's medical problems, medication and disposition issues with the patient and daughter. All questions were answered. The patient will return to the nephrological care of Dr. Marcum in the a.m. Yuli Turner MD YEHUDA
[2017-09-05] MEDS: Levothyroxine 112 MCG TAB PO SCH (05:53)
[2017-09-05 07:17] LABS: ALB/GLOB RATIO 0.9 (1.1-1.8); ALBUMIN 2.8 g/dL (3.0-4.8); CALCIUM 8.6 mg/dL (8.4-10.5)
[2017-09-05 07:30] LABS: BASO # 0.05 K/mm3 (0.0-2.0); BASO % 0.4 % (0.0-3.0); EOS # 0.1 (0.0-0.7); EOS % 0.4 % (1.5-5.0); GRAN # 11.62 (1.4-6.5); GRAN % 83.3 % (50.0-68.0); HEMOGLOBIN 9.9 g/dL (12.0-16.0); LYMPH # 1.5 (1.2-3.4); LYMPH % 10.6 % (22.0-35.0); MEAN CORPUSCULAR HEMOGLOBIN 30.8 pg (25.0-35.0); MEAN CORPUSCULAR HGB CONC 32.5 g/dl (31.0-37.0); MEAN PLATELET VOLUME 10.8 fl (7.0-11.0); MONO # 0.7 (0.1-0.6); MONO % 5.3 % (1.0-6.0); RBC 3.21 10^6/uL (3.5-6.1); RED CELL DISTRIBUTION WIDTH 14.5 % (11.5-14.5); WHITE BLOOD COUNT 13.9 10^3/ul (4.5-11.0)
[2017-09-05 07:39] LABS: INR 1.54 (0.93-1.08); PARTIAL THROMBOPLASTIN TIME 32.1 Seconds (25.1-36.5); PROTHROMBIN TIME 17.9 SECONDS (9.4-12.5)
[2017-09-05] MEDS: Pantoprazole 40 mg EC Tab PO SCH (08:08)
[2017-09-05] MEDS: Metoprolol Succinate 25 mg XL Tab PO SCH (08:09)
--- NOTE | 2017-09-05 08:59 | CP.PCM.PN ---
Subjective - Date & Time of Evaluation Date of Evaluation: 09/05/17 Time of Evaluation: 07:00 - Subjective Subjective: Doing better. No CP or SOB. LE pains better. + diarrhea V/S noted. V. Paced. PE: Lungs: rhonchi Cor.: S1S2 Abd.: soft Ext: less edema Neuro.: alert Labs noted. H/H = 9.9/30.5, IN = 1.54 BC X1 NG at 5 days. C. diff. neg/neg. Objective - Vital Signs/Intake and Output Vital Signs (last 24 hours): Temp Pulse Resp BP Pulse Ox 97.8 F 67 18 129/63 100 09/05/17 07:25 09/05/17 07:25 09/05/17 07:25 09/05/17 08:09 09/05/17 07:25 Intake and Output: 09/05/17 09/05/17 06:59 18:59 Intake Total 340 Balance 340 - Medications Medications: Current Medications Acetaminophen (Tylenol 325mg Tab) 650 mg PO Q6H PRN PRN Reason: Pain, Mild (1-3) Last Admin: 09/03/17 09:40 Dose: 650 mg Allopurinol (Zyloprim) 100 mg PO BID [facility] Last Admin: 09/04/17 17:06 Dose: 100 mg Colchicine (Colocrys) 0.6 mg PO DAILY [facility] Digoxin (Digoxin) 0.125 mg PO Q48H [facility] Last Admin: 09/04/17 13:31 Dose: 0.125 mg Furosemide (Lasix) 20 mg IVP BID [facility] Last Admin: 09/04/17 17:06 Dose: Not Given Milrinone Lactate/Dextrose (Primacor 20mg/100ml D5w) 100 mls @ 6.96 mls/hr IV .[id number] PRN; Protocol; 0.33 MCG/KG/MIN PRN Reason: TITRATE PER MD ORDER Last Admin: 09/04/17 21:10 Dose: 0.33 mcg/kg/min, 6.96 mls/hr Isosorbide Mononitrate (Imdur Er) 30 mg PO DAILY [facility] Last Admin: 09/04/17 10:06 Dose: 30 mg Levothyroxine Sodium (Synthroid) 112 mcg PO 0600 [facility] Last Admin: 09/05/17 05:53 Dose: 112 mcg Losartan Potassium (Cozaar) 25 mg PO DAILY [facility] Last Admin: 09/04/17 10:07 Dose: 25 mg Magnesium Oxide (Mag-Ox) 400 mg PO DAILY [facility] Last Admin: 09/04/17 10:06 Dose: 400 mg Metoprolol Succinate (Toprol Xl) 25 mg PO BRK [facility] Last Admin: 09/05/17 08:09 Dose: 25 mg Morphine Sulfate (Morphine) 0.5 mg IVP Q6H PRN PRN Reason: Pain, moderate (4-7) Last Admin: 09/02/17 22:36 Dose: 0.5 mg Pantoprazole Sodium (Protonix Ec Tab) 40 mg PO ACB [facility] Last Admin: 09/05/17 08:08 Dose: 40 mg Prednisone (Prednisone Tab) 30 mg PO DAILY [facility] Warfarin Sodium (Coumadin) 4 mg PO 1800 [facility] PRN Reason: Protocol Last Admin: 09/04/17 17:06 Dose: 4 mg Warfarin Sodium (Coumadin) 6 mg PO ONCE ONE PRN Reason: Protocol Stop: 09/05/17 09:01 - Labs Labs: 09/05/17 06:30 09/05/17 06:30 PT 17.9 SECONDS (9.4-12.5) H 09/05/17 06:30 INR 1.54 (0.93-1.08) H 09/05/17 06:30 APTT 32.1 Seconds (25.1-36.5) 09/05/17 06:30 Assessment and Plan - Assessment and Plan (Free Text) Assessment: Diffuse body,LE , knee and wrist pain, SOB/Edema R/O Acute Gout CHF IV on home milrinone infusion 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 Warfarin 6 mg. today. Monitor INR's daily Change IV Lasix 20 BID to PO 40 mg. daily Decrease colchicine to 0.6 daily Monitor : labs, I/O, INRs, etc. Will follow
[2017-09-05] MEDS: Magnesium Oxide 400 mg Tab UD PO SCH (10:00)
--- NOTE | 2017-09-05 11:49 | CP.PCM.PN ---
Subjective - Date & Time of Evaluation Date of Evaluation: 09/05/17 Time of Evaluation: 10:15 - Subjective Subjective: PGY-2 nephrology progress note for Dr Marcum. No acute events noted overnight. Patient appeared comfortable did not offer any complaints. Stated she felt well overall. Stated she's been in bed since Tuesday - she was advised get out of bed today if tolerable. Denied chest pain , abdominal pain, shortness of breath, urinary symptoms, fevers. Tolerating diet. Objective - Vital Signs/Intake and Output Vital Signs (last 24 hours): Temp Pulse Resp BP Pulse Ox 97.8 F 68 18 126/60 100 09/05/17 07:25 09/05/17 10:00 09/05/17 07:25 09/05/17 10:00 09/05/17 07:25 Intake and Output: 09/05/17 09/05/17 06:59 18:59 Intake Total 340 Balance 340 - Medications Medications: Current Medications Acetaminophen (Tylenol 325mg Tab) 650 mg PO Q6H PRN PRN Reason: Pain, Mild (1-3) Last Admin: 09/03/17 09:40 Dose: 650 mg Allopurinol (Zyloprim) 100 mg PO BID [facility] Last Admin: 09/05/17 10:00 Dose: 100 mg Colchicine (Colocrys) 0.6 mg PO DAILY [facility] Last Admin: 09/05/17 10:01 Dose: 0.6 mg Digoxin (Digoxin) 0.125 mg PO Q48H [facility] Last Admin: 09/04/17 13:31 Dose: 0.125 mg Furosemide (Lasix) 40 mg PO DAILY [facility] Last Admin: 09/05/17 10:00 Dose: 40 mg Milrinone Lactate/Dextrose (Primacor 20mg/100ml D5w) 100 mls @ 6.96 mls/hr IV .[id number] PRN; Protocol; 0.33 MCG/KG/MIN PRN Reason: TITRATE PER MD ORDER Last Admin: 09/04/17 21:10 Dose: 0.33 mcg/kg/min, 6.96 mls/hr Isosorbide Mononitrate (Imdur Er) 30 mg PO DAILY [facility] Last Admin: 09/05/17 10:00 Dose: 30 mg Levothyroxine Sodium (Synthroid) 112 mcg PO 0600 [facility] Last Admin: 09/05/17 05:53 Dose: 112 mcg Losartan Potassium (Cozaar) 25 mg PO DAILY [facility] Last Admin: 09/05/17 10:00 Dose: 25 mg Magnesium Oxide (Mag-Ox) 400 mg PO DAILY [facility] Last Admin: 09/05/17 10:00 Dose: 400 mg Metoprolol Succinate (Toprol Xl) 25 mg PO BRK [facility] Last Admin: 09/05/17 08:09 Dose: 25 mg Morphine Sulfate (Morphine) 0.5 mg IVP Q6H PRN PRN Reason: Pain, moderate (4-7) Last Admin: 09/02/17 22:36 Dose: 0.5 mg Pantoprazole Sodium (Protonix Ec Tab) 40 mg PO ACB [facility] Last Admin: 09/05/17 08:08 Dose: 40 mg Prednisone (Prednisone Tab) 30 mg PO DAILY [facility] Last Admin: 09/05/17 09:59 Dose: 30 mg Warfarin Sodium (Coumadin) 4 mg PO 1800 [facility] PRN Reason: Protocol Last Admin: 09/04/17 17:06 Dose: 4 mg - Labs Labs: 09/05/17 06:30 09/05/17 06:30 PT 17.9 SECONDS (9.4-12.5) H 09/05/17 06:30 INR 1.54 (0.93-1.08) H 09/05/17 06:30 APTT 32.1 Seconds (25.1-36.5) 09/05/17 06:30 - Constitutional Appears: Well, No Acute Distress - Head Exam Head Exam: ATRAUMATIC, NORMAL INSPECTION - Eye Exam Eye Exam: EOMI. absent: Periorbital tenderness, Scleral icterus Pupil Exam: PERRL - ENT Exam ENT Exam: Mucous Membranes Moist. absent: Mucous Membranes Dry - Neck Exam Neck Exam: Full ROM, Normal Inspection. absent: Lymphadenopathy, Tenderness - Respiratory Exam Respiratory Exam: Rales, NORMAL BREATHING PATTERN. absent: Rhonchi, Wheezes Additional comments: bibasalar fine rales present (chronic) - Cardiovascular Exam Cardiovascular Exam: REGULAR RHYTHM, +S1, +S2, Murmur. absent: Bradycardia, Tachycardia, JVD - GI/Abdominal Exam GI & Abdominal Exam: Soft, Normal Bowel Sounds. absent: Distended, Firm, Guarding, Tenderness, Rebound - Extremities Exam Extremities Exam: Full ROM, Normal Capillary Refill, Normal Inspection. absent : Calf Tenderness, Joint Swelling, Pedal Edema, Tenderness Additional comments: LE edema no longer present - Neurological Exam Neurological Exam: Alert, Oriented x3 - Psychiatric Exam Psychiatric exam: Normal Affect, Normal Mood - Skin Skin Exam: Intact, Normal Color, Warm Assessment and Plan - Assessment and Plan (Free Text) Assessment: (1) DAPHNE (acute kidney injury) Assessment & Plan: Cardiorenal etiology; improved with sustained diuresis; -continue lasix PO 40 mg QD; -if discharging, continue PO lasix 40 mg QD for a few days until weight back down to low 150's (lbs); then go back to her usual dose of 20 mg PO bid; -continue to optimize cardiac status with B-emilia and ARB, titrate upward as BP tolerates; -daily standing weights if possible (current bed weights unreliable); * If daily weights indicate weight gain it is okay to give evening dose of lasix PO 20mg -hyperkalemia resolved, keep on low K diet for now; Status: Resolved (2) HFrEF (heart failure with reduced ejection fraction) Assessment & Plan: Improving, see above; Status: Acute (3) Hyperuricemia Assessment & Plan: With acute gout flare; on steroids and colchicine; -continue to avoid all NSAIDS; Status: Chronic
--- NOTE | 2017-09-05 13:15 | CP.PCM.PN ---
Subjective - Date & Time of Evaluation Date of Evaluation: 09/05/17 Time of Evaluation: 13:11 - Subjective Subjective: Medicine Progress Note Patient seen and examined at bedside. No acute distress. Patient still complains of bouts of diarrhea, that is unchanged since the day prior. Patient is ambulating well from bed to chair with PT. Patient denies SOB, chest pain, lower extremity pain, and/or lower extremity edema. Patient denies nausea, vomiting, and/or dizziness. Objective - Vital Signs/Intake and Output Vital Signs (last 24 hours): Temp Pulse Resp BP Pulse Ox 97.8 F 68 18 126/60 100 09/05/17 07:25 09/05/17 10:00 09/05/17 07:25 09/05/17 10:00 09/05/17 07:25 Intake and Output: 09/05/17 09/05/17 06:59 18:59 Intake Total 340 Balance 340 - Medications Medications: Current Medications Acetaminophen (Tylenol 325mg Tab) 650 mg PO Q6H PRN PRN Reason: Pain, Mild (1-3) Last Admin: 09/03/17 09:40 Dose: 650 mg Allopurinol (Zyloprim) 100 mg PO BID [facility] Last Admin: 09/05/17 10:00 Dose: 100 mg Colchicine (Colocrys) 0.6 mg PO DAILY [facility] Last Admin: 09/05/17 10:01 Dose: 0.6 mg Digoxin (Digoxin) 0.125 mg PO Q48H [facility] Last Admin: 09/04/17 13:31 Dose: 0.125 mg Enoxaparin Sodium (Lovenox) 70 mg SC Q12H [facility] PRN Reason: Protocol Stop: 09/06/17 01:16 Furosemide (Lasix) 40 mg PO DAILY [facility] Last Admin: 09/05/17 10:00 Dose: 40 mg Milrinone Lactate/Dextrose (Primacor 20mg/100ml D5w) 100 mls @ 6.96 mls/hr IV .[id number] PRN; Protocol; 0.33 MCG/KG/MIN PRN Reason: TITRATE PER MD ORDER Last Admin: 09/04/17 21:10 Dose: 0.33 mcg/kg/min, 6.96 mls/hr Isosorbide Mononitrate (Imdur Er) 30 mg PO DAILY [facility] Last Admin: 09/05/17 10:00 Dose: 30 mg Levothyroxine Sodium (Synthroid) 112 mcg PO 0600 [facility] Last Admin: 09/05/17 05:53 Dose: 112 mcg Losartan Potassium (Cozaar) 25 mg PO DAILY [facility] Last Admin: 09/05/17 10:00 Dose: 25 mg Magnesium Oxide (Mag-Ox) 400 mg PO DAILY [facility] Last Admin: 09/05/17 10:00 Dose: 400 mg Metoprolol Succinate (Toprol Xl) 25 mg PO BRK [facility] Last Admin: 09/05/17 08:09 Dose: 25 mg Morphine Sulfate (Morphine) 0.5 mg IVP Q6H PRN PRN Reason: Pain, moderate (4-7) Last Admin: 09/02/17 22:36 Dose: 0.5 mg Pantoprazole Sodium (Protonix Ec Tab) 40 mg PO ACB [facility] Last Admin: 09/05/17 08:08 Dose: 40 mg Prednisone (Prednisone Tab) 30 mg PO DAILY [facility] Last Admin: 09/05/17 09:59 Dose: 30 mg Warfarin Sodium (Coumadin) 4 mg PO 1800 [facility] PRN Reason: Protocol Last Admin: 09/04/17 17:06 Dose: 4 mg - Labs Labs: 09/05/17 06:30 09/05/17 06:30 PT 17.9 SECONDS (9.4-12.5) H 09/05/17 06:30 INR 1.54 (0.93-1.08) H 09/05/17 06:30 APTT 32.1 Seconds (25.1-36.5) 09/05/17 06:30 - Constitutional Appears: Well, Non-toxic, No Acute Distress - Head Exam Head Exam: ATRAUMATIC, NORMAL INSPECTION, NORMOCEPHALIC - Eye Exam Eye Exam: Normal appearance - ENT Exam ENT Exam: Mucous Membranes Moist - Neck Exam Neck Exam: absent: Lymphadenopathy, Thyromegaly - Respiratory Exam Respiratory Exam: NORMAL BREATHING PATTERN. absent: Accessory Muscle Use, Chest Wall Tenderness, Decreased Breath Sounds, Rales, Rhonchi, Wheezes - Cardiovascular Exam Cardiovascular Exam: Gallop, REGULAR RHYTHM, +S1, +S2. absent: Diastolic murmur , JVD, Murmur Additional comments: S3 gallop appreciated on auscultation. - GI/Abdominal Exam GI & Abdominal Exam: Soft, Normal Bowel Sounds. absent: Distended, Guarding, Tenderness - Extremities Exam Extremities Exam: Normal Inspection. absent: Calf Tenderness, Joint Swelling, Pedal Edema, Tenderness - Back Exam Back Exam: NORMAL INSPECTION - Neurological Exam Neurological Exam: Alert, CN II-XII Intact, Oriented x3. absent: Altered - Psychiatric Exam Psychiatric exam: Normal Affect, Normal Mood - Skin Skin Exam: Dry, Intact, Normal Color, Warm Assessment and Plan - Assessment and Plan (Free Text) Assessment: 87 year old female with a history of systolic heart failure with icd and on milrinone drip, atrial fibrillation, hypothyroidism, and gout, admitted for acute gout attack, CHF exacerbation: CHF with reduced EF - EF 8% - lasix 20 IV BID changed to lasix 40mg QDaily PO - cont digoxin, cozaar, metoprolol, isosorbide mononitrate - BNP ordered - No spironolactone due to history of hyperkalemia - Daily weights - Monitor I + O - Maintain head of bed at 30 degrees - Palliative consulted for goals of care - cardio hospice - OOB as tolerated Watery diarrhea: - likely 2/2 cochicine - cdiff negative - continue to monitor - tolerating PO diet well LE pain - likely 2/2 acute gout attack - colchicine reduced to 0.6mg QDaily,allopurinol - continue prednisone - Ortho Dr Ambriz consulted. - Elevate legs - uric acid 6.6 - monitor - PT eval and treat Hx of Hypothyroidism: -cont home synthroid Hx of Atrial fibrillation: -Cont home metoprolol -INR 1.54 on 09/05 -Therapeutic lovenox bridge given until therapeutic INR reached. -Coumadin 6mg given tonight PPX -Protonix -Coumadin -Lovenox Dispo: PT eval recommends [facility], awaiting secondary social studies teacher for placement - [facility]. Patient will follow up with PMD Dr Green outpatient. Case seen and discussed with Jaswinder Sánchez, PGY1
[2017-09-05] MEDS: Milrinone 20mg/100ml D5W 100 ML IV PRN (13:55)
[2017-09-05] MEDS: Enoxaparin 80 mg Syringe SC SCH (17:17)
[2017-09-06] MEDS: Enoxaparin 80 mg Syringe SC SCH (01:50)
[2017-09-06] MEDS: Milrinone 20mg/100ml D5W 100 ML IV PRN ×2 (01:50→17:26)
[2017-09-06] MEDS: Levothyroxine 112 MCG TAB PO SCH (06:41)
[2017-09-06 07:08] LABS: EOS % 0.1 % (1.5-5.0); GRAN # 11.31 (1.4-6.5); GRAN % 79.7 % (50.0-68.0); LYMPH # 1.9 (1.2-3.4); LYMPH % 13.7 % (22.0-35.0); MEAN CELL VOLUME 91.8 fl (80.0-105.0); MEAN CORPUSCULAR HEMOGLOBIN 30.3 pg (25.0-35.0); MEAN PLATELET VOLUME 10.1 fl (7.0-11.0); MONO # 0.9 (0.1-0.6); MONO % 6.5 % (1.0-6.0); RBC 3.3 10^6/uL (3.5-6.1); WHITE BLOOD COUNT 14.2 10^3/ul (4.5-11.0)
[2017-09-06 07:15] LABS: INR 1.71 (0.93-1.08); PROTHROMBIN TIME 19.9 SECONDS (9.4-12.5)
[2017-09-06 07:22] LABS: ALB/GLOB RATIO 0.9 (1.1-1.8); ALBUMIN 2.9 g/dL (3.0-4.8); CALCIUM 8.7 mg/dL (8.4-10.5)
--- NOTE | 2017-09-06 07:54 | CP.PCM.PN ---
Subjective - Date & Time of Evaluation Date of Evaluation: 09/06/17 Time of Evaluation: 07:00 - Subjective Subjective: Doing better. No CP or SOB. LE pains better. Still diarrhea. Was OOB to chair most of yesterday. V/S noted. PE: Lungs: rhonchi Cor.: S1S2 Abd.: soft Ext: no edema Neuro.: alert Labs noted. H/H = 10/30.3 INR = 1.77 BC X1 NG at 5 days. C. diff. neg/neg. Objective - Vital Signs/Intake and Output Vital Signs (last 24 hours): Temp Pulse Resp BP Pulse Ox 97.5 F L 78 20 112/54 L 100 09/05/17 22:09 09/06/17 01:50 09/05/17 22:09 09/06/17 01:50 09/05/17 22:09 Intake and Output: 09/06/17 09/06/17 06:59 18:59 Intake Total 580 Balance 580 - Medications Medications: Current Medications Acetaminophen (Tylenol 325mg Tab) 650 mg PO Q6H PRN PRN Reason: Pain, Mild (1-3) Last Admin: 09/03/17 09:40 Dose: 650 mg Allopurinol (Zyloprim) 100 mg PO BID [facility] Last Admin: 09/05/17 17:17 Dose: 100 mg Colchicine (Colocrys) 0.6 mg PO DAILY [facility] Last Admin: 09/05/17 10:01 Dose: 0.6 mg Digoxin (Digoxin) 0.125 mg PO Q48H [facility] Last Admin: 09/04/17 13:31 Dose: 0.125 mg Furosemide (Lasix) 40 mg PO DAILY [facility] Last Admin: 09/05/17 10:00 Dose: 40 mg Milrinone Lactate/Dextrose (Primacor 20mg/100ml D5w) 100 mls @ 6.96 mls/hr IV .[id number] PRN; Protocol; 0.33 MCG/KG/MIN PRN Reason: TITRATE PER MD ORDER Last Admin: 09/06/17 01:50 Dose: 0.33 mcg/kg/min, 6.96 mls/hr Isosorbide Mononitrate (Imdur Er) 30 mg PO DAILY [facility] Last Admin: 09/05/17 10:00 Dose: 30 mg Levothyroxine Sodium (Synthroid) 112 mcg PO 0600 [facility] Last Admin: 09/06/17 06:41 Dose: 112 mcg Losartan Potassium (Cozaar) 25 mg PO DAILY [facility] Last Admin: 09/05/17 10:00 Dose: 25 mg Magnesium Oxide (Mag-Ox) 400 mg PO DAILY [facility] Last Admin: 09/05/17 10:00 Dose: 400 mg Metoprolol Succinate (Toprol Xl) 25 mg PO BRK [facility] Last Admin: 09/05/17 08:09 Dose: 25 mg Pantoprazole Sodium (Protonix Ec Tab) 40 mg PO ACB [facility] Last Admin: 09/05/17 08:08 Dose: 40 mg Prednisone (Prednisone Tab) 30 mg PO DAILY [facility] Last Admin: 09/05/17 09:59 Dose: 30 mg Warfarin Sodium (Coumadin) 4 mg PO 1800 [facility] PRN Reason: Protocol Last Admin: 09/04/17 17:06 Dose: 4 mg Warfarin Sodium (Coumadin) 5 mg PO ONCE ONE PRN Reason: Protocol Stop: 09/06/17 10:01 - Labs Labs: 09/06/17 06:30 09/06/17 06:30 PT 19.9 SECONDS (9.4-12.5) H 09/06/17 06:30 INR 1.71 (0.93-1.08) H 09/06/17 06:30 APTT 32.1 Seconds (25.1-36.5) 09/05/17 06:30 Assessment and Plan - Assessment and Plan (Free Text) Assessment: Diffuse body,LE , knee and wrist pain, SOB/Edema, all improved R/O Acute Gout CHF IV on home milrinone infusion [facility] with severe LVD MR,TR,PH, severe AF on warfarin ICD CVA Hypothyroidism GB surgery Former Smoker DNR/DNI Diarrhea, possible related to colchicine Plan: As per Renal, Ortho and Medical Team OOB as mireille./PT as mireille. Warfarin 5 mg. today. Monitor INR's daily Continue Lasix 40 mg. daily Decrease colchicine to 0.6 daily Monitor : labs, I/O, INRs, etc. Rehab and senior living placement efforts. Will follow
[2017-09-06] MEDS: Pantoprazole 40 mg EC Tab PO SCH (08:06)
[2017-09-06] MEDS: Metoprolol Succinate 25 mg XL Tab PO SCH (08:06)
[2017-09-06] MEDS: Magnesium Oxide 400 mg Tab UD PO SCH (09:32)
--- NOTE | 2017-09-06 11:31 | CP.PCM.PN ---
Subjective - Date & Time of Evaluation Date of Evaluation: 09/06/17 Time of Evaluation: 11:31 - Subjective Subjective: PGY-2 nephrology progress note for Dr Marcum's service Patient seen and examined at bedside. No acute events noted overnight. Patient is comfortable and does not report any complaints. She states that she is feeling better overall. She stated she was out of bed with PT yesterday. She was OOB to chair. Denied chest pain, abdominal pain, shortness of breath, urinary symptoms, fevers. Tolerating diet. She does report urinating 2-3 overnight, however this is less then she normally urinates. Objective - Vital Signs/Intake and Output Vital Signs (last 24 hours): Temp Pulse Resp BP Pulse Ox 98.5 F 69 18 119/53 L 100 09/06/17 06:00 09/06/17 11:24 09/06/17 08:51 09/06/17 11:24 09/06/17 06:00 Intake and Output: 09/06/17 09/06/17 06:59 18:59 Intake Total 580 Balance 580 - Medications Medications: Current Medications Acetaminophen (Tylenol 325mg Tab) 650 mg PO Q6H PRN PRN Reason: Pain, Mild (1-3) Last Admin: 09/03/17 09:40 Dose: 650 mg Allopurinol (Zyloprim) 100 mg PO BID [facility] Last Admin: 09/06/17 09:32 Dose: 100 mg Digoxin (Digoxin) 0.125 mg PO Q48H [facility] Last Admin: 09/04/17 13:31 Dose: 0.125 mg Furosemide (Lasix) 40 mg PO DAILY [facility] Last Admin: 09/06/17 11:24 Dose: 40 mg Milrinone Lactate/Dextrose (Primacor 20mg/100ml D5w) 100 mls @ 6.96 mls/hr IV .[id number] PRN; Protocol; 0.33 MCG/KG/MIN PRN Reason: TITRATE PER MD ORDER Last Admin: 09/06/17 01:50 Dose: 0.33 mcg/kg/min, 6.96 mls/hr Isosorbide Mononitrate (Imdur Er) 30 mg PO DAILY [facility] Last Admin: 09/06/17 09:32 Dose: 30 mg Levothyroxine Sodium (Synthroid) 112 mcg PO 0600 [facility] Last Admin: 09/06/17 06:41 Dose: 112 mcg Losartan Potassium (Cozaar) 25 mg PO DAILY [facility] Last Admin: 09/06/17 11:24 Dose: 25 mg Magnesium Oxide (Mag-Ox) 400 mg PO DAILY [facility] Last Admin: 09/06/17 09:32 Dose: 400 mg Metoprolol Succinate (Toprol Xl) 25 mg PO BRK [facility] Last Admin: 09/06/17 08:06 Dose: 25 mg Pantoprazole Sodium (Protonix Ec Tab) 40 mg PO ACB [facility] Last Admin: 09/06/17 08:06 Dose: 40 mg Prednisone (Prednisone Tab) 20 mg PO DAILY [facility] Warfarin Sodium (Coumadin) 4 mg PO 1800 [facility] PRN Reason: Protocol Last Admin: 09/04/17 17:06 Dose: 4 mg - Labs Labs: 09/06/17 06:30 09/06/17 06:30 PT 19.9 SECONDS (9.4-12.5) H 09/06/17 06:30 INR 1.71 (0.93-1.08) H 09/06/17 06:30 APTT 32.1 Seconds (25.1-36.5) 09/05/17 06:30 - Constitutional Appears: Well, No Acute Distress - Head Exam Head Exam: ATRAUMATIC, NORMOCEPHALIC - Eye Exam Eye Exam: EOMI, Normal appearance - ENT Exam ENT Exam: Mucous Membranes Moist - Respiratory Exam Respiratory Exam: Rhonchi, NORMAL BREATHING PATTERN. absent: Wheezes, Respiratory Distress - Cardiovascular Exam Cardiovascular Exam: REGULAR RHYTHM, +S1, +S2. absent: Bradycardia, Tachycardia , Murmur - GI/Abdominal Exam GI & Abdominal Exam: Soft, Normal Bowel Sounds. absent: Distended, Firm, Guarding, Tenderness - Extremities Exam Extremities Exam: Normal Inspection. absent: Pedal Edema, Tenderness - Neurological Exam Neurological Exam: Alert, Awake, Oriented x3 - Skin Skin Exam: Dry, Intact, Normal Color Assessment and Plan - Assessment and Plan (Free Text) Assessment: 87 year old female with a history of systolic heart failure with icd and on milrinone drip, atrial fibrillation, hypothyroidism, and gout, admitted for acute gout attack, CHF exacerbation, found to have DAPHNE Plan: DAPHNE (acute kidney injury) - Cardiorenal etiology; improved with sustained diuresis; - continue lasix PO 40 mg QD - daily weights continues to be above base line will start evening dose of lasix PO 20mg -if discharging, continue PO lasix 40 mg QD for a few days until weight back down to low 150's (lbs); then go back to her usual dose of 20 mg PO bid -continue to optimize cardiac status with B-emilia and ARB, titrate upward as BP tolerates - continue daily standing weights if possible (current bed weights unreliable) -hyperkalemia resolved, keep on low K diet for now HFrEF (heart failure with reduced ejection fraction) - Improving Hyperuricemia - With acute gout flare; on steroids and colchicine - continue to avoid all NSAIDS case seen and discussed with attending.
--- NOTE | 2017-09-06 12:56 | CP.PCM.PN ---
<Jaswinder Degroot - Last Filed: 09/06/17 13:24> Subjective - Date & Time of Evaluation Date of Evaluation: 09/06/17 Time of Evaluation: 12:54 - Subjective Subjective: Medicine Progress Note Patient seen and examined at bedside. No complaints overnight. Today, the patient shows no signs of acute distress and is without complaints. Patient states diarrhea has been improving. Patient is ambulating well from bed to chair with PT. Patient tolerating PO diet well. Patient denies SOB, chest pain, lower extremity pain, and/or lower extremity edema. Patient denies nausea, vomiting, and/or dizziness. Objective - Vital Signs/Intake and Output Vital Signs (last 24 hours): Temp Pulse Resp BP Pulse Ox 98.5 F 69 18 119/53 L 100 09/06/17 06:00 09/06/17 11:24 09/06/17 08:51 09/06/17 11:24 09/06/17 06:00 Intake and Output: 09/06/17 09/06/17 06:59 18:59 Intake Total 580 Balance 580 - Medications Medications: Current Medications Acetaminophen (Tylenol 325mg Tab) 650 mg PO Q6H PRN PRN Reason: Pain, Mild (1-3) Last Admin: 09/03/17 09:40 Dose: 650 mg Allopurinol (Zyloprim) 100 mg PO BID [facility] Last Admin: 09/06/17 09:32 Dose: 100 mg Digoxin (Digoxin) 0.125 mg PO Q48H [facility] Last Admin: 09/04/17 13:31 Dose: 0.125 mg Furosemide (Lasix) 40 mg PO DAILY [facility] Last Admin: 09/06/17 11:24 Dose: 40 mg Furosemide (Lasix) 20 mg PO HS [facility] Milrinone Lactate/Dextrose (Primacor 20mg/100ml D5w) 100 mls @ 6.96 mls/hr IV .[id number] PRN; Protocol; 0.33 MCG/KG/MIN PRN Reason: TITRATE PER MD ORDER Last Admin: 09/06/17 01:50 Dose: 0.33 mcg/kg/min, 6.96 mls/hr Isosorbide Mononitrate (Imdur Er) 30 mg PO DAILY [facility] Last Admin: 09/06/17 09:32 Dose: 30 mg Levothyroxine Sodium (Synthroid) 112 mcg PO 0600 [facility] Last Admin: 09/06/17 06:41 Dose: 112 mcg Losartan Potassium (Cozaar) 25 mg PO DAILY [facility] Last Admin: 09/06/17 11:24 Dose: 25 mg Magnesium Oxide (Mag-Ox) 400 mg PO DAILY [facility] Last Admin: 09/06/17 09:32 Dose: 400 mg Metoprolol Succinate (Toprol Xl) 25 mg PO BRK [facility] Last Admin: 09/06/17 08:06 Dose: 25 mg Pantoprazole Sodium (Protonix Ec Tab) 40 mg PO ACB [facility] Last Admin: 09/06/17 08:06 Dose: 40 mg Prednisone (Prednisone Tab) 20 mg PO DAILY [facility] Warfarin Sodium (Coumadin) 4 mg PO 1800 [facility] PRN Reason: Protocol Last Admin: 09/04/17 17:06 Dose: 4 mg - Labs Labs: 09/06/17 06:30 09/06/17 06:30 PT 19.9 SECONDS (9.4-12.5) H 09/06/17 06:30 INR 1.71 (0.93-1.08) H 09/06/17 06:30 APTT 32.1 Seconds (25.1-36.5) 09/05/17 06:30 - Constitutional Appears: Well, Non-toxic, No Acute Distress - Head Exam Head Exam: ATRAUMATIC, NORMAL INSPECTION, NORMOCEPHALIC - Eye Exam Eye Exam: Conjunctival injection, EOMI, Normal appearance - Neck Exam Neck Exam: Full ROM, Normal Inspection. absent: Thyromegaly - Respiratory Exam Respiratory Exam: Clear to Ausculation Bilateral, NORMAL BREATHING PATTERN. absent: Accessory Muscle Use, Chest Wall Tenderness, Decreased Breath Sounds, Rales, Rhonchi, Wheezes - Cardiovascular Exam Cardiovascular Exam: Gallop (S3 gallop appreciated on auscultation ), REGULAR RHYTHM, RRR, +S1, +S2. absent: Diastolic murmur, Rubs - GI/Abdominal Exam GI & Abdominal Exam: Soft, Normal Bowel Sounds. absent: Distended, Rigid - Extremities Exam Extremities Exam: Full ROM, Normal Inspection. absent: Tenderness - Back Exam Back Exam: Full ROM, NORMAL INSPECTION - Neurological Exam Neurological Exam: Alert, Awake, CN II-XII Intact, Oriented x3 - Psychiatric Exam Psychiatric exam: Normal Affect, Normal Mood - Skin Skin Exam: Dry, Intact, Normal Color, Warm Assessment and Plan - Assessment and Plan (Free Text) Assessment: 87 year old female with a history of systolic heart failure with icd and on milrinone drip, atrial fibrillation, hypothyroidism, and gout, admitted for acute gout attack, CHF exacerbation: CHF with reduced EF - EF 8% - Lasix 20 IV BID changed to lasix 40mg QDaily PO. - Per nephro, Lasix 20mg PO given given at night due to daily weights being above baseline. - Cont digoxin, cozaar, metoprolol, isosorbide mononitrate - BNP repeat 4970 - No spironolactone due to history of hyperkalemia - Daily weights - Monitor I + O - Maintain head of bed at 30 degrees - Awaiting palliative care for goals of care - cardio hospice - OOB as tolerated DAPHNE - Cardiorenal etiology; improved with sustained diuresis; - Continue lasix PO 40 mg QD - Per nephro, daily weights continues to be above base line, thus evening dose of lasix PO 20mg administered - Hyperkalemia resolved, keep on low K diet for now - Avoid NSAIDS HFrEF (heart failure with reduced ejection fraction) - Improving Hyperuricemia - With acute gout flare; on steroids and colchicine - continue to avoid all NSAIDS - daily weights continues to be above base line will start evening dose of lasix PO 20mg Watery diarrhea: - Improving - Likely secondary to colchicine - cdiff negative - continue to monitor - tolerating PO diet well LE pain - resolved - likely 2/2 acute gout attack - Discontinue colchicine - Continue allopurinol - Taper Prednisone to 20mg - Dr Pb Mondragon consulted - Elevate legs - uric acid 6.6 - monitor - PT eval and treat Hx of Hypothyroidism: - Cont home synthroid Hx of Atrial fibrillation: - Cont home metoprolol - INR 1.7 on 09/06 - Therapeutic lovenox bridge given until therapeutic INR reached. - Coumadin 5mg given today, recheck tomorrow. PPX -Protonix -Coumadin -Lovenox Dispo: PT eval recommends [facility], awaiting delinquency prevention social worker for placement - [facility] to [facility]. Patient will follow up with PMD Dr Green outpatient. Case seen and discussed with Leeanne Valadez D.O., Neev D.O. PGY-1 <Finley,Leeanne R - Last Filed: 09/06/17 13:56> Objective - Vital Signs/Intake and Output Vital Signs (last 24 hours): Temp Pulse Resp BP Pulse Ox 98.5 F 69 18 119/53 L 100 09/06/17 06:00 09/06/17 11:24 09/06/17 08:51 09/06/17 11:24 09/06/17 06:00 Intake and Output: 09/06/17 09/06/17 06:59 18:59 Intake Total 580 Balance 580 - Medications Medications: Current Medications Acetaminophen (Tylenol 325mg Tab) 650 mg PO Q6H PRN PRN Reason: Pain, Mild (1-3) Last Admin: 09/03/17 09:40 Dose: 650 mg Allopurinol (Zyloprim) 100 mg PO BID [facility] Last Admin: 09/06/17 09:32 Dose: 100 mg Digoxin (Digoxin) 0.125 mg PO Q48H [facility] Last Admin: 09/06/17 13:13 Dose: 0.125 mg Furosemide (Lasix) 40 mg PO DAILY [facility] Last Admin: 09/06/17 11:24 Dose: 40 mg Furosemide (Lasix) 20 mg PO HS [facility] Milrinone Lactate/Dextrose (Primacor 20mg/100ml D5w) 100 mls @ 6.96 mls/hr IV .[id number] PRN; Protocol; 0.33 MCG/KG/MIN PRN Reason: TITRATE PER MD ORDER Last Admin: 09/06/17 01:50 Dose: 0.33 mcg/kg/min, 6.96 mls/hr Isosorbide Mononitrate (Imdur Er) 30 mg PO DAILY [facility] Last Admin: 09/06/17 09:32 Dose: 30 mg Levothyroxine Sodium (Synthroid) 112 mcg PO 0600 [facility] Last Admin: 09/06/17 06:41 Dose: 112 mcg Losartan Potassium (Cozaar) 25 mg PO DAILY [facility] Last Admin: 09/06/17 11:24 Dose: 25 mg Magnesium Oxide (Mag-Ox) 400 mg PO DAILY [facility] Last Admin: 09/06/17 09:32 Dose: 400 mg Metoprolol Succinate (Toprol Xl) 25 mg PO BRK [facility] Last Admin: 09/06/17 08:06 Dose: 25 mg Pantoprazole Sodium (Protonix Ec Tab) 40 mg PO ACB [facility] Last Admin: 09/06/17 08:06 Dose: 40 mg Prednisone (Prednisone Tab) 20 mg PO DAILY [facility] Warfarin Sodium (Coumadin) 4 mg PO 1800 [facility] PRN Reason: Protocol Last Admin: 09/04/17 17:06 Dose: 4 mg - Labs Labs: 09/06/17 06:30 09/06/17 06:30 PT 19.9 SECONDS (9.4-12.5) H 09/06/17 06:30 INR 1.71 (0.93-1.08) H 09/06/17 06:30 APTT 32.1 Seconds (25.1-36.5) 09/05/17 06:30 Attending/Attestation - Attestation I have personally seen and examined this patient.: Yes I have fully participated in the care of the patient.: Yes I have reviewed all pertinent clinical information, including history, physical exam and plan: Yes Notes (Text): 09/06/17 13:40 Patient seen and examined 10:35 AM by me. Physical assessment and plan discussed with resident. Patient states that she is feeling well. She is denying any pain. She denies any pain in her lower extremities. No chest pain or shortness of breath. No abdominal pain nausea or vomiting. No fevers or chills. No headaches or dizziness. No dysuria. Physical exam: Gen.: Patient is awake and alert sitting up in chair in no acute distress HEENT: Normocephalic atraumatic, extraocular muscles intact, pupils equal reactive, oropharynx is pink and moist, no pharyngeal erythema or exudate appreciated, neck is supple. Cardiovascular: Irregular rhythm, no murmurs rubs or gallops appreciated, bilateral lower extremity improved pitting edema Pulmonary: Normal respiratory effort. No rhonchi rales or wheezing appreciated Gastrointestinal: Soft, nontender, nondistended, positive bowel sounds all 4 quadrants, no guarding Musculoskeletal: Moves all extremities, no calf tenderness Central nervous system: AAO 3 Dermatologic: Skin warm and dry Assessment and plan: Acute on chronic systolic heart failure improving. Continue with diuresis with Lasix 40 mg by mouth daily and 20 mg at bedtime. Cardiology and nephrology following. Recommendations appreciated. Continue with current cardiac medications. Monitor daily weights. Continue to monitor ins and outs. Acute kidney injury slightly worsened today. Continue with diuresis. DAPHNE secondary to cardiorenal etiology. Continue to monitor BUN/creatinine. Gout appears to be resolved. Continue to taper prednisone. Colchicine stopped. Continue with maintenance dose of allopurinol. Leukocytosis likely reactive to steroids. No signs of infection. Continue to monitor. Elevated LFTs likely secondary to hepatic congestion likely secondary to CHF. Continue diuresis. Anemia is stable. Patient is on Coumadin for history of atrial fibrillation. INR 1.71. Patient to receive Coumadin 5 mg by mouth 1 dose tonight. Continue with bridging with Lovenox. Follow-up INR in a.m. Disposition: Pending rehabilitation placement. Case was discussed in detail with the patient regarding her diagnosis and treatment plan
[2017-09-06] MEDS: Digoxin 125 mcg (0.125 mg) Tab PO SCH (13:13)
[2017-09-07] MEDS: Levothyroxine 112 MCG TAB PO SCH (05:33)
[2017-09-07 06:55] LABS: BASO # 0.01 K/mm3 (0.0-2.0); BASO % 0.1 % (0.0-3.0); EOS # 0.1 (0.0-0.7); EOS % 0.6 % (1.5-5.0); GRAN # 8.68 (1.4-6.5); GRAN % 73.9 % (50.0-68.0); HEMOGLOBIN 9.8 g/dL (12.0-16.0); LYMPH # 2.3 (1.2-3.4); LYMPH % 19.4 % (22.0-35.0); MEAN CELL VOLUME 91.6 fl (80.0-105.0); MEAN CORPUSCULAR HEMOGLOBIN 30.3 pg (25.0-35.0); MEAN CORPUSCULAR HGB CONC 33.1 g/dl (31.0-37.0); MEAN PLATELET VOLUME 10.5 fl (7.0-11.0); MONO # 0.7 (0.1-0.6); RBC 3.23 10^6/uL (3.5-6.1); RED CELL DISTRIBUTION WIDTH 15.2 % (11.5-14.5); WHITE BLOOD COUNT 11.7 10^3/ul (4.5-11.0)
[2017-09-07 07:00] LABS: INR 1.95 (0.93-1.08); PROTHROMBIN TIME 22.7 SECONDS (9.4-12.5)
[2017-09-07 07:17] LABS: CALCIUM 8.6 mg/dL (8.4-10.5)
[2017-09-07] MEDS: Metoprolol Succinate 25 mg XL Tab PO SCH (07:57)
[2017-09-07] MEDS: Pantoprazole 40 mg EC Tab PO SCH (07:59)
[2017-09-07] MEDS: Milrinone 20mg/100ml D5W 100 ML IV PRN ×2 (07:59→22:35)
[2017-09-07] MEDS: Magnesium Oxide 400 mg Tab UD PO SCH (09:51)
[2017-09-07] MEDS: Enoxaparin 80 mg Syringe SC SCH ×2 (09:51→21:31)
--- NOTE | 2017-09-07 14:26 | RAD ---
HISTORY: crackles appreciated on pulmonary auscultation COMPARISON: 08/28/2017 FINDINGS: LUNGS: No active pulmonary disease. PLEURA: No significant pleural effusion identified, no pneumothorax apparent. CARDIOVASCULAR: Cardiomegaly/pulmonary vascular congestion. Position/ configuration of pacemaker stable, satisfactory position. OSSEOUS STRUCTURES: No significant abnormalities. VISUALIZED UPPER ABDOMEN: Normal. OTHER FINDINGS: None. IMPRESSION: No discrete/ acute pulmonary infiltrates. No significant interval change compared to the prior examination(s).
--- NOTE | 2017-09-07 14:36 | CP.PCM.PN ---
<Jaswinder Degroot - Last Filed: 09/07/17 15:39> Subjective - Date & Time of Evaluation Date of Evaluation: 09/07/17 Time of Evaluation: 14:33 - Subjective Subjective: Jaswinder Degroot D.O. PGY-1 -- Twister In -- Medicine Progress Note Patient was seen at bedside this morning. Patient reports no concerns today, and denies any pain. Patient says she had 1 bowel movement, which she described as soft stool, and denies worsening of her diarrhea. Patient states she is tolerating a Healthy Heart Diet, and denies difficulty getting OOB. ROS is otherwise unremarkable for any chest pain, shortness of breath, and/or lower extremity pain, headache, fever, chills, and/or dizziness. Objective - Vital Signs/Intake and Output Vital Signs (last 24 hours): Temp Pulse Resp BP Pulse Ox 98.4 F 68 18 119/64 100 09/07/17 06:00 09/07/17 09:53 09/07/17 06:00 09/07/17 09:53 09/07/17 06:00 Intake and Output: 09/07/17 09/07/17 06:59 18:59 Intake Total 720 100 Output Total 2 Balance 718 100 - Medications Medications: Current Medications Acetaminophen (Tylenol 325mg Tab) 650 mg PO Q6H PRN PRN Reason: Pain, Mild (1-3) Last Admin: 09/03/17 09:40 Dose: 650 mg Allopurinol (Zyloprim) 100 mg PO BID [facility] Last Admin: 09/07/17 09:52 Dose: 100 mg Digoxin (Digoxin) 0.125 mg PO Q48H [facility] Last Admin: 09/06/17 13:13 Dose: 0.125 mg Enoxaparin Sodium (Lovenox) 70 mg SC Q12H [facility] PRN Reason: Protocol Stop: 09/07/17 21:01 Last Admin: 09/07/17 09:51 Dose: 70 mg Furosemide (Lasix) 40 mg PO DAILY [facility] Last Admin: 09/07/17 09:52 Dose: 40 mg Furosemide (Lasix) 20 mg PO HS [facility] Last Admin: 09/06/17 21:40 Dose: 20 mg Milrinone Lactate/Dextrose (Primacor 20mg/100ml D5w) 100 mls @ 6.96 mls/hr IV .[id number] PRN; Protocol; 0.33 MCG/KG/MIN PRN Reason: TITRATE PER MD ORDER Last Admin: 09/07/17 07:59 Dose: 0.33 mcg/kg/min, 6.96 mls/hr Isosorbide Mononitrate (Imdur Er) 30 mg PO DAILY [facility] Last Admin: 09/07/17 09:53 Dose: 30 mg Levothyroxine Sodium (Synthroid) 112 mcg PO 0600 [facility] Last Admin: 09/07/17 05:33 Dose: 112 mcg Losartan Potassium (Cozaar) 25 mg PO DAILY [facility] Last Admin: 09/07/17 09:53 Dose: 25 mg Magnesium Oxide (Mag-Ox) 400 mg PO DAILY [facility] Last Admin: 09/07/17 09:51 Dose: 400 mg Metoprolol Succinate (Toprol Xl) 25 mg PO BRK [facility] Last Admin: 09/07/17 07:57 Dose: 25 mg Pantoprazole Sodium (Protonix Ec Tab) 40 mg PO ACB [facility] Last Admin: 09/07/17 07:59 Dose: 40 mg Prednisone (Prednisone Tab) 20 mg PO DAILY [facility] Last Admin: 09/07/17 09:52 Dose: 20 mg Warfarin Sodium (Coumadin) 4 mg PO 1800 [facility] PRN Reason: Protocol Last Admin: 09/04/17 17:06 Dose: 4 mg - Labs Labs: 09/07/17 06:30 09/07/17 06:30 PT 22.7 SECONDS (9.4-12.5) H 09/07/17 06:30 INR 1.95 (0.93-1.08) H 09/07/17 06:30 APTT 32.1 Seconds (25.1-36.5) 09/05/17 06:30 - Constitutional Appears: Well, No Acute Distress - Head Exam Head Exam: ATRAUMATIC, NORMAL INSPECTION, NORMOCEPHALIC - Eye Exam Eye Exam: Normal appearance. absent: Conjunctival injection, Periorbital swelling - ENT Exam ENT Exam: Mucous Membranes Moist, Normal Exam - Neck Exam Neck Exam: Full ROM - Respiratory Exam Respiratory Exam: absent: Accessory Muscle Use, Chest Wall Tenderness, Decreased Breath Sounds, Clear to Ausculation Bilateral Additional comments: crackles appreciated on auscultation - Cardiovascular Exam Cardiovascular Exam: Gallop (S3 gallop appreciated on auscultation ), REGULAR RHYTHM. absent: Bradycardia, Tachycardia, Clicks, Diastolic murmur, Murmur Additional comments: Crackles appreciated on auscultation - GI/Abdominal Exam GI & Abdominal Exam: Soft, Normal Bowel Sounds. absent: Distended, Firm, Guarding, Tenderness, Organomegaly, Rebound - Extremities Exam Extremities Exam: Pedal Edema (+1 edema in bilateral lower extremities ). absent: Calf Tenderness, Joint Swelling, Tenderness - Back Exam Back Exam: NORMAL INSPECTION - Neurological Exam Neurological Exam: Alert, Awake, CN II-XII Intact - Psychiatric Exam Psychiatric exam: Normal Affect, Normal Mood - Skin Skin Exam: Dry, Intact, Normal Color, Warm Assessment and Plan - Assessment and Plan (Free Text) Assessment: Jaswinder Degroot D.O. PGY-1 -- Twister In -- Medicine Progress Note is a 87 year old female with a significant past medical history of congestive heart failure (CHF) with reduced ejection fraction (EF), most recent EF at 8%, and is status post AICD and is on milironone drip, atrial fibrilation, hypothyroidism, and gout. Patient was admitted for treatment and evaluation of left lower extremity pain and acute on chronic CHF exacerbation. Assessment & Plan: 1.chronic CHF with reduced EF, acute exacerbation resolved - EF: 8% on most recent echo - Cardiology consulted: Dr. Quinton GALLARDO - Nephrology consulted: Dr. Trixie GALLARDO - continue digoxin 0.125mg PO Q48H - continue losartan 25mg PO DAILY - continue milironone drip - continue Isosorbide mononitrate - continue lasix 40mg PO DAILY, lasix 20mg PO HS - CXR Result: No significant changes compared to prior examinations. - monitor I+O and daily weights - no spironolactone due to history of hyperkalemia - elevate bed at 30 degrees - palliative care consulted Atrial Fibrillation - INR today 1.95, improving - continue metoprolol - continue warfarin 4mg PO, recheck INR in AM - will continue to bridge with enoxaparin 70mg SC Q12H until INR is at therapeutic level DAPHNE, resolved - continue to monitor Lower extremity pain, resolved - likely secondary to Gout - colchicine discontinued - avoid NSAIDS due to history of DAPHNE - continue allopurinol 100mg PO BID diarrhea, resolved - likely 2/2 colchicine - c-diff negative - continue to monitor Hx Hypothyroidism - continue synthroid PPx: - Protonix - Coumadin - Lovenox Dispo: awaiting social science professor for placement [facility] to [facility]. This case was seen and reviewed with Attending Physician Leeanne Son D.O, D.O. PGY-1 -- Twister In <Leeanne Finley R - Last Filed: 09/07/17 16:05> Objective - Vital Signs/Intake and Output Vital Signs (last 24 hours): Temp Pulse Resp BP Pulse Ox 98.4 F 68 18 119/64 100 09/07/17 06:00 09/07/17 09:53 09/07/17 06:00 09/07/17 09:53 09/07/17 06:00 Intake and Output: 09/07/17 09/07/17 06:59 18:59 Intake Total 720 1060 Output Total 2 Balance 718 1060 - Medications Medications: Current Medications Acetaminophen (Tylenol 325mg Tab) 650 mg PO Q6H PRN PRN Reason: Pain, Mild (1-3) Last Admin: 09/03/17 09:40 Dose: 650 mg Allopurinol (Zyloprim) 100 mg PO BID [facility] Last Admin: 09/07/17 09:52 Dose: 100 mg Digoxin (Digoxin) 0.125 mg PO Q48H [facility] Last Admin: 09/06/17 13:13 Dose: 0.125 mg Enoxaparin Sodium (Lovenox) 70 mg SC Q12H [facility] PRN Reason: Protocol Stop: 09/07/17 21:01 Last Admin: 09/07/17 09:51 Dose: 70 mg Furosemide (Lasix) 40 mg PO DAILY [facility] Last Admin: 09/07/17 09:52 Dose: 40 mg Furosemide (Lasix) 20 mg PO HS [facility] Last Admin: 09/06/17 21:40 Dose: 20 mg Milrinone Lactate/Dextrose (Primacor 20mg/100ml D5w) 100 mls @ 6.96 mls/hr IV .[id number] PRN; Protocol; 0.33 MCG/KG/MIN PRN Reason: TITRATE PER MD ORDER Last Admin: 09/07/17 07:59 Dose: 0.33 mcg/kg/min, 6.96 mls/hr Isosorbide Mononitrate (Imdur Er) 30 mg PO DAILY [facility] Last Admin: 09/07/17 09:53 Dose: 30 mg Levothyroxine Sodium (Synthroid) 112 mcg PO 0600 [facility] Last Admin: 09/07/17 05:33 Dose: 112 mcg Losartan Potassium (Cozaar) 25 mg PO DAILY [facility] Last Admin: 09/07/17 09:53 Dose: 25 mg Magnesium Oxide (Mag-Ox) 400 mg PO DAILY [facility] Last Admin: 09/07/17 09:51 Dose: 400 mg Metoprolol Succinate (Toprol Xl) 25 mg PO BRK [facility] Last Admin: 09/07/17 07:57 Dose: 25 mg Pantoprazole Sodium (Protonix Ec Tab) 40 mg PO ACB [facility] Last Admin: 09/07/17 07:59 Dose: 40 mg Prednisone (Prednisone Tab) 20 mg PO DAILY [facility] Last Admin: 09/07/17 09:52 Dose: 20 mg Warfarin Sodium (Coumadin) 4 mg PO 1800 [facility] PRN Reason: Protocol Last Admin: 09/04/17 17:06 Dose: 4 mg - Labs Labs: 09/07/17 06:30 09/07/17 06:30 PT 22.7 SECONDS (9.4-12.5) H 09/07/17 06:30 INR 1.95 (0.93-1.08) H 09/07/17 06:30 APTT 32.1 Seconds (25.1-36.5) 09/05/17 06:30 Attending/Attestation - Attestation I have personally seen and examined this patient.: Yes I have fully participated in the care of the patient.: Yes I have reviewed all pertinent clinical information, including history, physical exam and plan: Yes Notes (Text): Patient seen and examined by me at 11AM with resident. Case including physical assessment and plan discussed with resident. Agree with above with following additions/corrections. Patient states that she is doing well. She states that she is eating well. She states she is having no pain. No chest pain or shortness of breath. No abdominal pain nausea or vomiting. No fevers or chills. No headaches or dizziness. No dysuria. No diarrhea or constipation. She did have a "soft" bowel movement. Physical exam: Gen: Awake and alert sitting up in chair in no acute distress HEENT: Normocephalic atraumatic, extraocular muscles intact, pupils equal reactive, oropharynx is pink and moist, no pharyngeal erythema or exudate appreciated, neck is supple. Cardiovascular: Irregular rhythm, no murmurs rubs or gallops appreciated, bilateral lower extremity with continued improving pitting edema Pulmonary: Normal respiratory effort. No rhonchi or wheezing appreciated. Mild crackles at bases. Gastrointestinal: Soft, nontender, nondistended, positive bowel sounds all 4 quadrants, no guarding Musculoskeletal: Moves all extremities, no calf tenderness Central nervous system: AAO 3 Dermatologic: Skin warm and dry Assessment and plan: Acute on chronic systolic heart failure resolving. Continue with Lasix 40 mg by mouth daily and 20 mg at bedtime. Cardiology and nephrology following. Recommendations appreciated. Continue with milrinone drip , Cozaar, digoxin, and metoprolol. Continue to monitor daily weights. Continue to monitor ins and outs. Chest x-ray with no acute changes. Acute kidney injury stable. Creatinine improved. B1 stable. Continue with diuresis. DAPHNE likely secondary to cardiorenal etiology. Continue to monitor BUN/creatinine. Gout resolved. Continue to taper prednisone. Colchicine stopped. Continue with maintenance dose of allopurinol. Leukocytosis likely reactive to steroids. No signs of infection. Improving. Continue to monitor. Elevated LFTs likely secondary to hepatic congestion likely secondary to CHF. Resolving, continue to monitor. Anemia is stable. INR up trending. Continue Coumadin. Continue with bridging with Lovenox. Follow-up INR in a.m. Likely stop Lovenox tomorrow. Disposition: Pending rehabilitation placement. Case was discussed in detail with the patient regarding her diagnosis and treatment plan
--- NOTE | 2017-09-07 23:48 | CP.PCM.PN ---
Subjective - Date & Time of Evaluation Date of Evaluation: 09/07/17 Time of Evaluation: 11:00 - Subjective Subjective: 87 yo F w/ CHF w/ severe systolic dysunction, on home milrinone, admitted with CHF exacerbation, gout flare; Reports feeling well; ambulated today without dyspnea; tolerating diet well; urinated more last night after getting pm lasix dose; Objective - Vital Signs/Intake and Output Vital Signs (last 24 hours): Temp Pulse Resp BP Pulse Ox 97.4 F L 70 18 103/46 L 100 09/07/17 22:00 09/07/17 22:35 09/07/17 22:00 09/07/17 22:35 09/07/17 22:00 Intake and Output: 09/07/17 09/08/17 18:59 06:59 Intake Total 1060 100 Balance 1060 100 - Medications Medications: Current Medications Acetaminophen (Tylenol 325mg Tab) 650 mg PO Q6H PRN PRN Reason: Pain, Mild (1-3) Last Admin: 09/03/17 09:40 Dose: 650 mg Allopurinol (Zyloprim) 100 mg PO BID [facility] Last Admin: 09/07/17 17:38 Dose: 100 mg Digoxin (Digoxin) 0.125 mg PO Q48H [facility] Last Admin: 09/06/17 13:13 Dose: 0.125 mg Furosemide (Lasix) 40 mg PO DAILY [facility] Last Admin: 09/07/17 09:52 Dose: 40 mg Furosemide (Lasix) 20 mg PO HS [facility] Last Admin: 09/07/17 21:31 Dose: 20 mg Milrinone Lactate/Dextrose (Primacor 20mg/100ml D5w) 100 mls @ 6.96 mls/hr IV .[id number] PRN; Protocol; 0.33 MCG/KG/MIN PRN Reason: TITRATE PER MD ORDER Last Admin: 09/07/17 22:35 Dose: 0.33 mcg/kg/min, 6.96 mls/hr Isosorbide Mononitrate (Imdur Er) 30 mg PO DAILY [facility] Last Admin: 09/07/17 09:53 Dose: 30 mg Levothyroxine Sodium (Synthroid) 112 mcg PO 0600 [facility] Last Admin: 09/07/17 05:33 Dose: 112 mcg Losartan Potassium (Cozaar) 25 mg PO DAILY [facility] Last Admin: 09/07/17 09:53 Dose: 25 mg Magnesium Oxide (Mag-Ox) 400 mg PO DAILY [facility] Last Admin: 09/07/17 09:51 Dose: 400 mg Metoprolol Succinate (Toprol Xl) 25 mg PO BRK [facility] Last Admin: 09/07/17 07:57 Dose: 25 mg Pantoprazole Sodium (Protonix Ec Tab) 40 mg PO ACB [facility] Last Admin: 09/07/17 07:59 Dose: 40 mg Prednisone (Prednisone Tab) 20 mg PO DAILY [facility] Last Admin: 09/07/17 09:52 Dose: 20 mg Warfarin Sodium (Coumadin) 4 mg PO 1800 [facility] PRN Reason: Protocol Last Admin: 09/07/17 17:38 Dose: 4 mg - Labs Labs: 09/07/17 06:30 09/07/17 06:30 PT 22.7 SECONDS (9.4-12.5) H 09/07/17 06:30 INR 1.95 (0.93-1.08) H 09/07/17 06:30 APTT 32.1 Seconds (25.1-36.5) 09/05/17 06:30 - Constitutional Appears: Non-toxic, No Acute Distress - Eye Exam Eye Exam: absent: Scleral icterus - Respiratory Exam Respiratory Exam: Rales. absent: Respiratory Distress Additional comments: chronic fine rales; - Cardiovascular Exam Cardiovascular Exam: RRR, +S1, +S2. absent: Gallop - GI/Abdominal Exam GI & Abdominal Exam: Soft. absent: Distended, Tenderness - Extremities Exam Additional comments: mild lower leg edema, much improved; - Neurological Exam Neurological Exam: Alert, Awake - Psychiatric Exam Psychiatric exam: Normal Mood. absent: Agitated - Skin Skin Exam: Warm. absent: Cyanosis Assessment and Plan (1) DAPHNE (acute kidney injury) Assessment & Plan: Serum creatinine stable; cardiorenal etiology of renal insufficiency; continue to optimize cardiac status with B-blockers, ARB and diuretics; recommend to continue bid dosing of lasix to avoid avid sodium retention once effect of med wears off; Status: Resolved (2) HFrEF (heart failure with reduced ejection fraction) Assessment & Plan: Signs/symptoms much improved with aggressive diuresis; continue to check daily standing weights; Status: Chronic (3) Hyperuricemia Assessment & Plan: Had gout flare despite being on allopurinol 100 mg bid; should increase to tid dosing now that gout flare resolved (goal uric acid < 6.0); continue colchicine 0.6 mg daily for gout prophylaxis; Status: Chronic (4) Metabolic alkalosis Assessment & Plan: Primary alkalosis due to being on loop diuretics; relatively stable; if alkalosis increases further, start aldactone 12.5 mg bid; Status: Chronic
[2017-09-08] MEDS: Levothyroxine 112 MCG TAB PO SCH (05:44)
[2017-09-08 06:43] LABS: BASO # 0.01 K/mm3 (0.0-2.0); BASO % 0.1 % (0.0-3.0); EOS # 0.2 (0.0-0.7); EOS % 1.3 % (1.5-5.0); GRAN # 9.32 (1.4-6.5); GRAN % 71.3 % (50.0-68.0); HEMOGLOBIN 10.2 g/dL (12.0-16.0); LYMPH # 2.5 (1.2-3.4); LYMPH % 19.2 % (22.0-35.0); MEAN CELL VOLUME 92.2 fl (80.0-105.0); MEAN CORPUSCULAR HEMOGLOBIN 30.5 pg (25.0-35.0); MEAN CORPUSCULAR HGB CONC 33.1 g/dl (31.0-37.0); MEAN PLATELET VOLUME 10.5 fl (7.0-11.0); MONO # 1.1 (0.1-0.6); MONO % 8.1 % (1.0-6.0); RBC 3.34 10^6/uL (3.5-6.1); RED CELL DISTRIBUTION WIDTH 15.2 % (11.5-14.5); WHITE BLOOD COUNT 13.1 10^3/ul (4.5-11.0)
[2017-09-08 06:54] LABS: INR 2.04 (0.93-1.08); PROTHROMBIN TIME 23.8 SECONDS (9.4-12.5)
[2017-09-08 07:18] LABS: ALB/GLOB RATIO 0.9 (1.1-1.8); CALCIUM 8.7 mg/dL (8.4-10.5)
[2017-09-08] MEDS: Metoprolol Succinate 25 mg XL Tab PO SCH (07:43)
[2017-09-08] MEDS: Pantoprazole 40 mg EC Tab PO SCH (07:43)
--- NOTE | 2017-09-08 08:02 | CP.PCM.PN ---
Subjective - Date & Time of Evaluation Date of Evaluation: 09/08/17 Time of Evaluation: 07:00 - Subjective Subjective: Doing better. No CP or SOB. LE pains better. Ambulation with walker yesterday. + decubs V/S noted. PE: Lungs: rhonchi Cor.: S1S2 Abd.: soft Ext: no edema Neuro.: alert Labs noted. H/H = 10.2/30.8, WBC = 13,100, K+= 3.9, Cr= 1.2 BC X1 NG at 5 days. C. diff. neg/neg. Objective - Vital Signs/Intake and Output Vital Signs (last 24 hours): Temp Pulse Resp BP Pulse Ox 97.4 F L 64 18 108/57 L 100 09/07/17 22:00 09/08/17 07:43 09/07/17 22:00 09/08/17 07:43 09/07/17 22:00 Intake and Output: 09/08/17 09/08/17 06:59 18:59 Intake Total 340 Output Total 2 Balance 338 - Medications Medications: Current Medications Acetaminophen (Tylenol 325mg Tab) 650 mg PO Q6H PRN PRN Reason: Pain, Mild (1-3) Last Admin: 09/03/17 09:40 Dose: 650 mg Allopurinol (Zyloprim) 100 mg PO BID [facility] Last Admin: 09/07/17 17:38 Dose: 100 mg Digoxin (Digoxin) 0.125 mg PO Q48H [facility] Last Admin: 09/06/17 13:13 Dose: 0.125 mg Furosemide (Lasix) 40 mg PO DAILY [facility] Last Admin: 09/07/17 09:52 Dose: 40 mg Furosemide (Lasix) 20 mg PO HS [facility] Last Admin: 09/07/17 21:31 Dose: 20 mg Milrinone Lactate/Dextrose (Primacor 20mg/100ml D5w) 100 mls @ 6.96 mls/hr IV .[id number] PRN; Protocol; 0.33 MCG/KG/MIN PRN Reason: TITRATE PER MD ORDER Last Admin: 09/07/17 22:35 Dose: 0.33 mcg/kg/min, 6.96 mls/hr Isosorbide Mononitrate (Imdur Er) 30 mg PO DAILY [facility] Last Admin: 07/04/18 09:53 Dose: 30 mg Levothyroxine Sodium (Synthroid) 112 mcg PO 0600 [facility] Last Admin: 09/08/17 05:44 Dose: 112 mcg Losartan Potassium (Cozaar) 25 mg PO DAILY [facility] Last Admin: 09/07/17 09:53 Dose: 25 mg Magnesium Oxide (Mag-Ox) 400 mg PO DAILY [facility] Last Admin: 09/07/17 09:51 Dose: 400 mg Metoprolol Succinate (Toprol Xl) 25 mg PO BRK [facility] Last Admin: 09/08/17 07:43 Dose: 25 mg Pantoprazole Sodium (Protonix Ec Tab) 40 mg PO ACB [facility] Last Admin: 09/08/17 07:43 Dose: 40 mg Prednisone (Prednisone Tab) 20 mg PO DAILY [facility] Last Admin: 09/07/17 09:52 Dose: 20 mg Warfarin Sodium (Coumadin) 4 mg PO 1800 [facility] PRN Reason: Protocol Last Admin: 09/07/17 17:38 Dose: 4 mg - Labs Labs: 09/08/17 06:10 09/08/17 06:10 PT 23.8 SECONDS (9.4-12.5) H 09/08/17 06:10 INR 2.04 (0.93-1.08) H 09/08/17 06:10 APTT 32.1 Seconds (25.1-36.5) 09/05/17 06:30 Assessment and Plan - Assessment and Plan (Free Text) Assessment: Diffuse body, LE, knee and wrist pains, SOB/Edema Acute Gout CHF IV on home milrinone infusion 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 Warfarin 4 mg. today. Monitor INR's daily PO Lasix 20 40 and 20 Continue colchicine 0.6 daily and allopurinol 100 TID, as per renal rec. Monitor : labs, I/O, INRs, etc. Decubitus care. [facility] care being arranged Will follow
--- NOTE | 2017-09-08 08:31 | PN ---
DATE: 09/07/2017 SUBJECTIVE: The patient is seen sitting in bed on telemetry and she is currently comfortable. Her joint pain is improved. She denies any dyspnea. She has no edema. CURRENT MEDICATIONS: Include Coumadin, Cozaar 25 mg daily, digoxin 0.125 mg every other day, Imdur 30 mg daily, Lasix 60 mg daily, prednisone 20 mg daily, milrinone infusion, Protonix, Synthroid, Toprol-XL 25 mg daily and Zyloprim 100 mg b.i.d. OBJECTIVE: GENERAL: She is a very elderly woman, who appears comfortable at the present time. VITAL SIGNS: Blood pressure 124/66 with pulse of 70, respirations are 16. She is afebrile. HEENT: No JVD. CHEST: A few scattered rhonchi and diminished breath sounds at the bases. HEART: PMI displaced laterally with soft tones noted. ABDOMEN: Soft, nontender, normoactive bowel sounds. EXTREMITIES: No edema. DIAGNOSTIC DATA: Potassium 4, BUN and creatinine are 41 and 1.2. White count 11.7, hemoglobin and hematocrit 9.8 and 29.6 with platelet count of 234,000. INR is 1.95. IMPRESSION: 1. Advanced chronic congestive heart failure, predominantly systolic. 2. Recent acute gout flare-up. 3. Congestive cardiomyopathy. 4. Severe mitral and tricuspid regurgitation. 5. Chronic atrial fibrillation. 6. Prior cerebrovascular accident. 7. Status post implantable cardioverter-defibrillator implant. 8. Do not resuscitate/do not intubate order in place. RECOMMENDATIONSP: Her current cardiac medications should be continued. Apparently, her home environment does not appear to be safe or adequate for at this present time. Arrangements are being made for possible long-term care placement. Her current medications should be continued in the interim. We will follow along as needed. Dino Thompson MD
[2017-09-08] MEDS: Magnesium Oxide 400 mg Tab UD PO SCH (11:11)
--- NOTE | 2017-09-08 13:17 | CP.PCM.PN ---
Subjective - Date & Time of Evaluation Date of Evaluation: 09/08/17 Time of Evaluation: 10:45 - Subjective Subjective: PGY-2 nephrology progress note for Dr Marcum. No acute events noted overnight. Patient seen with daughter at bedside. Did not offer any complaints. Stated she felt better overall. Stated bottle caser working on finding her placement at [facility]. Ambulated yesterday without dysnpnea. Tolerating diet. Urinating well. Objective - Vital Signs/Intake and Output Vital Signs (last 24 hours): Temp Pulse Resp BP Pulse Ox 98 F 69 18 110/62 98 09/08/17 06:00 09/08/17 11:10 09/08/17 06:00 09/08/17 11:11 09/08/17 06:00 Intake and Output: 09/08/17 09/08/17 06:59 18:59 Intake Total 340 Output Total 2 Balance 338 - Medications Medications: Current Medications Acetaminophen (Tylenol 325mg Tab) 650 mg PO Q6H PRN PRN Reason: Pain, Mild (1-3) Last Admin: 09/03/17 09:40 Dose: 650 mg Allopurinol (Zyloprim) 100 mg PO TID [facility] Last Admin: 09/08/17 11:11 Dose: 100 mg Digoxin (Digoxin) 0.125 mg PO Q48H [facility] Last Admin: 09/06/17 13:13 Dose: 0.125 mg Furosemide (Lasix) 40 mg PO DAILY [facility] Last Admin: 09/08/17 11:11 Dose: 40 mg Furosemide (Lasix) 20 mg PO HS [facility] Last Admin: 09/07/17 21:31 Dose: 20 mg Milrinone Lactate/Dextrose (Primacor 20mg/100ml D5w) 100 mls @ 6.96 mls/hr IV .[id number] PRN; Protocol; 0.33 MCG/KG/MIN PRN Reason: TITRATE PER MD ORDER Last Admin: 09/07/17 22:35 Dose: 0.33 mcg/kg/min, 6.96 mls/hr Isosorbide Mononitrate (Imdur Er) 30 mg PO DAILY [facility] Last Admin: 09/08/17 11:15 Dose: 30 mg Levothyroxine Sodium (Synthroid) 112 mcg PO 0600 [facility] Last Admin: 09/08/17 05:44 Dose: 112 mcg Losartan Potassium (Cozaar) 25 mg PO DAILY [facility] Last Admin: 09/08/17 11:10 Dose: 25 mg Magnesium Oxide (Mag-Ox) 400 mg PO DAILY [facility] Last Admin: 09/08/17 11:11 Dose: 400 mg Metoprolol Succinate (Toprol Xl) 25 mg PO BRK [facility] Last Admin: 09/08/17 07:43 Dose: 25 mg Pantoprazole Sodium (Protonix Ec Tab) 40 mg PO ACB [facility] Last Admin: 09/08/17 07:43 Dose: 40 mg Prednisone (Prednisone Tab) 20 mg PO DAILY [facility] Last Admin: 09/08/17 11:11 Dose: 20 mg Warfarin Sodium (Coumadin) 4 mg PO 1800 [facility] PRN Reason: Protocol Last Admin: 09/07/17 17:38 Dose: 4 mg - Labs Labs: 09/08/17 06:10 09/08/17 06:10 PT 23.8 SECONDS (9.4-12.5) H 09/08/17 06:10 INR 2.04 (0.93-1.08) H 09/08/17 06:10 APTT 32.1 Seconds (25.1-36.5) 09/05/17 06:30 - Additional Findings Additional findings: - Constitutional Appears: Non-toxic, No Acute Distress - Eye Exam Eye Exam: absent: Scleral icterus - Respiratory Exam Respiratory Exam: Rales. absent: Respiratory Distress Additional comments: chronic fine rales; - Cardiovascular Exam Cardiovascular Exam: RRR, +S1, +S2. absent: Gallop - GI/Abdominal Exam GI & Abdominal Exam: Soft. absent: Distended, Tenderness - Extremities Exam Additional comments: mild lower leg edema, much improved; - Neurological Exam Neurological Exam: Alert, Awake - Psychiatric Exam Psychiatric exam: Normal Mood. absent: Agitated - Skin Skin Exam: Warm. absent: Cyanosis Assessment and Plan - Assessment and Plan (Free Text) Assessment: 87 yo F w/ CHF w/ severe systolic dysunction, on home milrinone, admitted with CHF exacerbation, gout flare: (1) DAPHNE (acute kidney injury) Assessment & Plan: Serum creatinine stable; cardiorenal etiology of renal insufficiency; continue to optimize cardiac status with B-blockers, ARB and diuretics; recommend to continue bid dosing of lasix to avoid avid sodium retention once effect of med wears off; Status: Resolved (2) HFrEF (heart failure with reduced ejection fraction) Assessment & Plan: Signs/symptoms much improved with aggressive diuresis; continue to check daily standing weights; Status: Chronic (3) Hyperuricemia Assessment & Plan: Had gout flare despite being on allopurinol 100 mg bid; should increase to tid dosing now that gout flare resolved (goal uric acid < 6.0); continue colchicine 0.6 mg daily for gout prophylaxis; Status: Chronic (4) Metabolic alkalosis Assessment & Plan: Primary alkalosis due to being on loop diuretics; relatively stable; if alkalosis increases further, start aldactone 12.5 mg bid; Status: Chronic
[2017-09-08] MEDS: Milrinone 20mg/100ml D5W 100 ML IV PRN (13:37)
--- NOTE | 2017-09-08 13:55 | CP.PCM.PN ---
<Jaswinder Degroot - Last Filed: 09/08/17 21:54> Subjective - Date & Time of Evaluation Date of Evaluation: 09/08/17 Time of Evaluation: 13:50 - Subjective Subjective: Jaswinder Degroot D.O. PGY-1 -- Dispatcher Radio -- Medicine Progress Note The patient was seen at bedside this morning and is without complaints. Per patient, she continues to deny any pain. Patient says she had 1 bowel movement, which she described as soft stool and denies watery diarrhea. Patient states she is tolerating a Healthy Heart Diet, and denies difficulty getting OOB. Patient denies chest pain, shortness of breath, and/or lower extremity pain, headache, fever, chills, and/or dizziness. The patient says her daughter was going to come by with the paperwork requested by the social media senior associate for [facility] placement. Objective - Vital Signs/Intake and Output Vital Signs (last 24 hours): Temp Pulse Resp BP Pulse Ox 98 F 67 18 127/85 98 09/08/17 06:00 09/08/17 13:37 09/08/17 06:00 09/08/17 13:37 09/08/17 06:00 Intake and Output: 09/08/17 09/08/17 06:59 18:59 Intake Total 340 0 Output Total 2 Balance 338 0 - Medications Medications: Current Medications Acetaminophen (Tylenol 325mg Tab) 650 mg PO Q6H PRN PRN Reason: Pain, Mild (1-3) Last Admin: 09/03/17 09:40 Dose: 650 mg Allopurinol (Zyloprim) 100 mg PO TID REPLACED BY [facility] Last Admin: 09/08/17 11:11 Dose: 100 mg Digoxin (Digoxin) 0.125 mg PO Q48H REPLACED BY [facility] Last Admin: 09/06/17 13:13 Dose: 0.125 mg Furosemide (Lasix) 40 mg PO DAILY [facility]PL[facility] Last Admin: 09/08/17 11:11 Dose: 40 mg Furosemide (Lasix) 20 mg PO HS [facility]PL[facility] Last Admin: 09/07/17 21:31 Dose: 20 mg Milrinone Lactate/Dextrose (Primacor 20mg/100ml D5w) 100 mls @ 6.96 mls/hr IV .[id number] PRN; Protocol; 0.33 MCG/KG/MIN PRN Reason: TITRATE PER MD ORDER Last Admin: 09/08/17 13:37 Dose: 0.33 mcg/kg/min, 6.96 mls/hr Isosorbide Mononitrate (Imdur Er) 30 mg PO DAILY REPLACED BY [facility] Last Admin: 09/08/17 11:15 Dose: 30 mg Levothyroxine Sodium (Synthroid) 112 mcg PO 0600 [facility] Last Admin: 09/08/17 05:44 Dose: 112 mcg Losartan Potassium (Cozaar) 25 mg PO DAILY [facility]PL[facility] Last Admin: 09/08/17 11:10 Dose: 25 mg Magnesium Oxide (Mag-Ox) 400 mg PO DAILY [facility]PL[facility] BY [facility] Last Admin: 09/08/17 11:11 Dose: 400 mg Metoprolol Succinate (Toprol Xl) 25 mg PO BRK REPLACED BY [facility] Last Admin: 09/08/17 07:43 Dose: 25 mg Pantoprazole Sodium (Protonix Ec Tab) 40 mg PO ACB REPLACED BY [facility] Last Admin: 09/08/17 07:43 Dose: 40 mg Prednisone (Prednisone Tab) 20 mg PO DAILY [facility]PL[facility] Last Admin: 09/08/17 11:11 Dose: 20 mg Warfarin Sodium (Coumadin) 4 mg PO 1800 REPL[facility]ED BY [facility] PRN Reason: Protocol Last Admin: 09/07/17 17:38 Dose: 4 mg - Labs Labs: 09/08/17 06:10 09/08/17 06:10 PT 23.8 SECONDS (9.4-12.5) H 09/08/17 06:10 INR 2.04 (0.93-1.08) H 09/08/17 06:10 APTT 32.1 Seconds (25.1-36.5) 09/05/17 06:30 - Constitutional Appears: Well, No Acute Distress, Other (was found comfortably laying in bed with the bed at 15 degrees at first bedside visit this morning.) - Head Exam Head Exam: ATRAUMATIC, NORMAL INSPECTION, NORMOCEPHALIC - Eye Exam Eye Exam: Normal appearance. absent: Conjunctival injection, Periorbital swelling, Scleral icterus Pupil Exam: NORMAL ACCOMODATION - ENT Exam ENT Exam: Mucous Membranes Moist, Normal Exam - Neck Exam Neck Exam: Full ROM, Normal Inspection. absent: Lymphadenopathy - Respiratory Exam Respiratory Exam: absent: Accessory Muscle Use, Chest Wall Tenderness, Decreased Breath Sounds, Clear to Ausculation Bilateral (crackles appreciated on auscultation bilaterally) - Cardiovascular Exam Cardiovascular Exam: Gallop (S3 gallop apprecaited on auscultation ). absent: Bradycardia, Tachycardia, Clicks - GI/Abdominal Exam GI & Abdominal Exam: Soft, Normal Bowel Sounds. absent: Distended, Firm, Guarding, Rigid, Hypoactive Bowel Sounds, Rebound - Extremities Exam Extremities Exam: Pedal Edema (+1 pedal edema bilaterally ). absent: Calf Tenderness, Joint Swelling, Tenderness - Back Exam Back Exam: NORMAL INSPECTION - Neurological Exam Neurological Exam: Alert, Awake, Oriented x3 - Psychiatric Exam Psychiatric exam: Normal Affect, Normal Mood - Skin Skin Exam: Dry, Intact, Normal Color, Warm Assessment and Plan - Assessment and Plan (Free Text) Assessment: Jaswinder Degroot D.O. PGY-1 -- Dispatcher Radio -- Medicine Progress Note is a 87 year old female with a significant past medical history of congestive heart failure (CHF) with reduced ejection fraction (EF), most recent EF at 8%, and is status post AICD and is on milironone drip, atrial fibrilation, hypothyroidism, and gout. Patient was admitted for treatment and evaluation of left lower extremity pain and acute on chronic CHF exacerbation. Assessment & Plan: Lower extremity pain, resolved - likely secondary to Gout - colchicine discontinued - avoid NSAIDS due to history of DAPHNE - continue allopurinol 100mg PO BID DAPHNE, resolved - continue to monitor diarrhea, resolved - likely 2/2 colchicine - c-diff negative - continue to monitor Hx chronic CHF with reduced EF, acute exacerbation resolved - EF: 8% on most recent echo - Cardiology following patient - Nephrology following patient - continue digoxin 0.125mg PO Q48H - continue losartan 25mg PO DAILY - continue milironone drip - continue Isosorbide mononitrate - continue lasix 40mg PO DAILY, lasix 20mg PO HS - CXR Result: No significant changes compared to prior examinations. - monitor I+O and daily weights - no spironolactone due to history of hyperkalemia - elevate bed at 30 degrees - palliative care consulted Hx Atrial Fibrillation - INR today > 2, improving - continue metoprolol - continue warfarin 4mg PO, recheck INR in AM - will continue to bridge with enoxaparin 70mg SC Q12H until INR is at therapeutic level Hx Hypothyroidism - continue synthroid PPx: - Protonix - Coumadin - Lovenox Dispo: awaiting social media senior associate for placement [facility] to [facility]. This case was seen and reviewed with Attending Physician Leeanne Son D.O, D.O. PGY-1 -- Dispatcher Radio <Leeanne Finley R - Last Filed: 09/09/17 08:51> Objective - Vital Signs/Intake and Output Vital Signs (last 24 hours): Temp Pulse Resp BP Pulse Ox 97.9 F 66 20 116/54 L 99 09/09/17 00:01 09/09/17 08:37 09/09/17 00:01 09/09/17 08:37 09/09/17 00:01 Intake and Output: 09/09/17 09/09/17 06:59 18:59 Intake Total 620 Balance 620 - Medications Medications: Current Medications Acetaminophen (Tylenol 325mg Tab) 650 mg PO Q6H PRN PRN Reason: Pain, Mild (1-3) Last Admin: 09/03/17 09:40 Dose: 650 mg Allopurinol (Zyloprim) 100 mg PO TID REPLACED BY [facility] Last Admin: 09/08/17 18:31 Dose: 100 mg Colchicine (Colocrys) 0.6 mg PO DAILY REPLACED BY [facility] Digoxin (Digoxin) 0.125 mg PO Q48H REPLACED BY [facility] Last Admin: 09/08/17 14:55 Dose: 0.125 mg Furosemide (Lasix) 40 mg PO DAILY REPLACED BY [facility] Last Admin: 09/08/17 11:11 Dose: 40 mg Furosemide (Lasix) 20 mg PO HS [facility]PLACED BY [facility] Last Admin: 09/08/17 22:30 Dose: 20 mg Milrinone Lactate/Dextrose (Primacor 20mg/100ml D5w) 100 mls @ 6.96 mls/hr IV .[id number] PRN; Protocol; 0.33 MCG/KG/MIN PRN Reason: TITRATE PER MD ORDER Last Admin: 09/09/17 03:32 Dose: 0.33 mcg/kg/min, 6.96 mls/hr Isosorbide Mononitrate (Imdur Er) 30 mg PO DAILY REPLACED BY [facility] Last Admin: 09/08/17 11:15 Dose: 30 mg Levothyroxine Sodium (Synthroid) 112 mcg PO 0600 [facility]PL[facility]ED [facility] Last Admin: 09/09/17 05:08 Dose: 112 mcg Losartan Potassium (Cozaar) 25 mg PO DAILY [facility]PL[facility] Last Admin: 09/08/17 11:10 Dose: 25 mg Magnesium Oxide (Mag-Ox) 400 mg PO DAILY [facility]PL[facility]ED [facility] Last Admin: 09/08/17 11:11 Dose: 400 mg Metoprolol Succinate (Toprol Xl) 25 mg PO BRK REPLACED BY [facility] Last Admin: 09/09/17 08:37 Dose: 25 mg Pantoprazole Sodium (Protonix Ec Tab) 40 mg PO ACB REPLACED BY [facility] Last Admin: 09/09/17 08:37 Dose: 40 mg Prednisone (Prednisone Tab) 20 mg PO DAILY [facility]PL[facility] Last Admin: 09/08/17 11:11 Dose: 20 mg Warfarin Sodium (Coumadin) 4 mg PO 1800 REPL[facility]ED BY [facility] PRN Reason: Protocol Last Admin: 09/08/17 18:31 Dose: 4 mg - Labs Labs: 09/08/17 06:10 09/09/17 07:30 PT 23.0 SECONDS (9.4-12.5) H 09/09/17 07:30 INR 1.97 (0.93-1.08) H 09/09/17 07:30 APTT 32.1 Seconds (25.1-36.5) 09/05/17 06:30 Attending/Attestation - Attestation I have personally seen and examined this patient.: Yes I have fully participated in the care of the patient.: Yes I have reviewed all pertinent clinical information, including history, physical exam and plan: Yes Notes (Text): Patient seen and examined by me at 9:55AM 09/08/17 with resident. Case including physical assessment and plan discussed with resident. Agree with above with following additions/corrections. Patient states she is feeling pretty good. Daughter at bedside. Patient is no longer having diarrhea. States she is having "soft" bowel movements. No chest pain or shortness of breath. No abdominal pain nausea or vomiting. No fevers or chills. No headaches or dizziness. No dysuria. No diarrhea or constipation. She is denying any pain in her joints or extremities. Physical exam: Gen: Awake and alert lying in bed in no acute distress HEENT: Normocephalic atraumatic, extraocular muscles intact, pupils equal reactive, oropharynx is pink and moist, no pharyngeal erythema or exudate appreciated, neck is supple. Cardiovascular: Irregular rhythm, no murmurs rubs or gallops appreciated, bilateral lower extremity with minimal pitting edema Pulmonary: Normal respiratory effort. No rhonchi or wheezing appreciated. Mild crackles at bases. Gastrointestinal: Soft, nontender, nondistended, positive bowel sounds all 4 quadrants, no guarding Musculoskeletal: Moves all extremities, no calf tenderness Central nervous system: AAO 3 Dermatologic: Skin warm and dry Assessment and plan: Acute on chronic systolic heart failure. Acute exacerbation resolved. Continue with Lasix 40 mg by mouth daily and 20 mg at bedtime. Cardiology and nephrology following, recommendations appreciated. Continue with milrinone drip, Cozaar, digoxin, and metoprolol. Continue to monitor daily weights. Weights are improving. Continue to monitor ins and outs. Acute kidney injury stable. Creatinine improved. BUN stable. DAPHNE likely secondary to cardiorenal etiology. Continue to monitor BUN/creatinine. Gout resolved. Continue to taper prednisone. Continue with maintenance dose of allopurinol. Leukocytosis likely reactive to steroids. No signs of infection. Continue to monitor. Elevated LFTs likely secondary to hepatic congestion likely secondary to CHF. Continue to monitor. Anemia is stable. INR therapeutic. Continue Coumadin. Lovenox stopped. Follow-up INR in a.m. Disposition: Pending rehabilitation placement. Case was discussed in detail with the patient and patient's daughter at bedside regarding her diagnosis and treatment plan
[2017-09-08] MEDS: Digoxin 125 mcg (0.125 mg) Tab PO SCH (14:55)
[2017-09-09] MEDS: Milrinone 20mg/100ml D5W 100 ML IV PRN ×2 (03:32→19:07)
[2017-09-09] MEDS: Levothyroxine 112 MCG TAB PO SCH (05:08)
--- NOTE | 2017-09-09 07:33 | CP.PCM.PN ---
Subjective - Date & Time of Evaluation Date of Evaluation: 09/09/17 Time of Evaluation: 07:00 - Subjective Subjective: No CP or SOB. V/S noted. PE: Lungs: rhonchi Cor.: S1S2 Abd.: soft Ext: no edema Neuro.: alert Labs 09/08 noted. H/H = 10.2/30.8, WBC = 13,100, K+= 3.9, Cr= 1.2. Todays labs pending. BC X1 NG at 5 days. C. diff. neg/neg Objective - Vital Signs/Intake and Output Vital Signs (last 24 hours): Temp Pulse Resp BP Pulse Ox 97.9 F 70 20 100/44 L 99 09/09/17 00:01 09/09/17 00:01 09/09/17 00:01 09/09/17 00:01 09/09/17 00:01 Intake and Output: 09/09/17 09/09/17 06:59 18:59 Intake Total 620 Balance 620 - Medications Medications: Current Medications Acetaminophen (Tylenol 325mg Tab) 650 mg PO Q6H PRN PRN Reason: Pain, Mild (1-3) Last Admin: 09/03/17 09:40 Dose: 650 mg Allopurinol (Zyloprim) 100 mg PO TID [facility] Last Admin: 09/08/17 18:31 Dose: 100 mg Digoxin (Digoxin) 0.125 mg PO Q48H [facility] Last Admin: 09/08/17 14:55 Dose: 0.125 mg Furosemide (Lasix) 40 mg PO DAILY [facility] Last Admin: 09/08/17 11:11 Dose: 40 mg Furosemide (Lasix) 20 mg PO HS [facility] Last Admin: 09/08/17 22:30 Dose: 20 mg Milrinone Lactate/Dextrose (Primacor 20mg/100ml D5w) 100 mls @ 6.96 mls/hr IV .[id number] PRN; Protocol; 0.33 MCG/KG/MIN PRN Reason: TITRATE PER MD ORDER Last Admin: 09/09/17 03:32 Dose: 0.33 mcg/kg/min, 6.96 mls/hr Isosorbide Mononitrate (Imdur Er) 30 mg PO DAILY [facility] Last Admin: 09/08/17 11:15 Dose: 30 mg Levothyroxine Sodium (Synthroid) 112 mcg PO 0600 [facility] Last Admin: 09/09/17 05:08 Dose: 112 mcg Losartan Potassium (Cozaar) 25 mg PO DAILY [facility] Last Admin: 09/08/17 11:10 Dose: 25 mg Magnesium Oxide (Mag-Ox) 400 mg PO DAILY [facility] Last Admin: 09/08/17 11:11 Dose: 400 mg Metoprolol Succinate (Toprol Xl) 25 mg PO BRK [facility] Last Admin: 09/08/17 07:43 Dose: 25 mg Pantoprazole Sodium (Protonix Ec Tab) 40 mg PO ACB [facility] Last Admin: 09/08/17 07:43 Dose: 40 mg Prednisone (Prednisone Tab) 20 mg PO DAILY [facility] Last Admin: 09/08/17 11:11 Dose: 20 mg Warfarin Sodium (Coumadin) 4 mg PO 1800 [facility] PRN Reason: Protocol Last Admin: 09/08/17 18:31 Dose: 4 mg - Labs Labs: 09/08/17 06:10 09/08/17 06:10 PT 23.8 SECONDS (9.4-12.5) H 09/08/17 06:10 INR 2.04 (0.93-1.08) H 09/08/17 06:10 APTT 32.1 Seconds (25.1-36.5) 09/05/17 06:30 Assessment and Plan - Assessment and Plan (Free Text) Assessment: Diffuse body, LE, knee and wrist pains, SOB/Edema Acute Gout CHF IV on home milrinone infusion 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 As per Renal and Medical Team OOB as mireille./PT as mireille. PO Lasix 40 and 20 Continue colchicine 0.6 daily and allopurinol 100 TID, as per renal rec. Monitor : labs, I/O, INRs, etc. Decubitus care. watermaster care being arranged Will follow
[2017-09-09 08:05] LABS: INR 1.97 (0.93-1.08)
[2017-09-09 08:08] LABS: CALCIUM 8.6 mg/dL (8.4-10.5)
[2017-09-09] MEDS: Pantoprazole 40 mg EC Tab PO SCH (08:37)
[2017-09-09] MEDS: Metoprolol Succinate 25 mg XL Tab PO SCH (08:37)
--- NOTE | 2017-09-09 09:14 | CP.PCM.PN ---
<Jaswinder Degroot - Last Filed: 09/09/17 12:18> Subjective - Date & Time of Evaluation Date of Evaluation: 09/09/17 Time of Evaluation: 09:11 - Subjective Subjective: Jaswinder Degroot D.O. 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 patient is without any complaints, and denies any pain. Per patient, she had a bowel movement this morning, stool was soft and patient denies diarrhea. Patient says she was able to get out of bed yesterday without issue. Patient is able to tolerate PO intake without issue. Bed is at 30 degrees. Patient denies chest pain, headache, nausea, vomiting and/ or dizziness Objective - Vital Signs/Intake and Output Vital Signs (last 24 hours): Temp Pulse Resp BP Pulse Ox 98.7 F 66 20 116/54 L 100 09/09/17 06:00 09/09/17 08:37 09/09/17 06:00 09/09/17 08:37 09/09/17 06:00 Intake and Output: 09/09/17 09/09/17 06:59 18:59 Intake Total 620 Balance 620 - Medications Medications: Current Medications Acetaminophen (Tylenol 325mg Tab) 650 mg PO Q6H PRN PRN Reason: Pain, Mild (1-3) Last Admin: 09/03/17 09:40 Dose: 650 mg Allopurinol (Zyloprim) 100 mg PO TID [facility] Last Admin: 09/08/17 18:31 Dose: 100 mg Colchicine (Colocrys) 0.6 mg PO DAILY [facility] Digoxin (Digoxin) 0.125 mg PO Q48H [facility] Last Admin: 09/08/17 14:55 Dose: 0.125 mg Furosemide (Lasix) 40 mg PO DAILY [facility] Last Admin: 09/08/17 11:11 Dose: 40 mg Furosemide (Lasix) 20 mg PO HS [facility] Last Admin: 09/08/17 22:30 Dose: 20 mg Milrinone Lactate/Dextrose (Primacor 20mg/100ml D5w) 100 mls @ 6.96 mls/hr IV .[id number] PRN; Protocol; 0.33 MCG/KG/MIN PRN Reason: TITRATE PER MD ORDER Last Admin: 09/09/17 03:32 Dose: 0.33 mcg/kg/min, 6.96 mls/hr Isosorbide Mononitrate (Imdur Er) 30 mg PO DAILY [facility] Last Admin: 09/08/17 11:15 Dose: 30 mg Levothyroxine Sodium (Synthroid) 112 mcg PO 0600 [facility] Last Admin: 09/09/17 05:08 Dose: 112 mcg Losartan Potassium (Cozaar) 25 mg PO DAILY [facility] Last Admin: 09/08/17 11:10 Dose: 25 mg Magnesium Oxide (Mag-Ox) 400 mg PO DAILY [facility] Last Admin: 09/08/17 11:11 Dose: 400 mg Metoprolol Succinate (Toprol Xl) 25 mg PO BRK [facility] Last Admin: 09/09/17 08:37 Dose: 25 mg Pantoprazole Sodium (Protonix Ec Tab) 40 mg PO ACB [facility] Last Admin: 09/09/17 08:37 Dose: 40 mg Prednisone (Prednisone Tab) 20 mg PO DAILY [facility] Last Admin: 09/08/17 11:11 Dose: 20 mg Warfarin Sodium (Coumadin) 4 mg PO 1800 [facility] PRN Reason: Protocol Last Admin: 09/08/17 18:31 Dose: 4 mg Warfarin Sodium (Coumadin) 5 mg PO ONCE ONE PRN Reason: Protocol Stop: 09/09/17 18:01 - Labs Labs: 09/08/17 06:10 09/09/17 07:30 PT 23.0 SECONDS (9.4-12.5) H 09/09/17 07:30 INR 1.97 (0.93-1.08) H 09/09/17 07:30 APTT 32.1 Seconds (25.1-36.5) 09/05/17 06:30 - Constitutional Appears: Well - Head Exam Head Exam: ATRAUMATIC, NORMAL INSPECTION, NORMOCEPHALIC - Eye Exam Eye Exam: Normal appearance. absent: Conjunctival injection, Periorbital swelling Pupil Exam: NORMAL ACCOMODATION - ENT Exam ENT Exam: Mucous Membranes Moist, Normal Exam - Neck Exam Neck Exam: Full ROM, Normal Inspection - Respiratory Exam Respiratory Exam: NORMAL BREATHING PATTERN. absent: Clear to Ausculation Bilateral (crackles appreciated bilaterally in lower lobes) - Cardiovascular Exam Cardiovascular Exam: Gallop (S3 gallop appreciated on auscultation ), REGULAR RHYTHM - GI/Abdominal Exam GI & Abdominal Exam: Soft, Normal Bowel Sounds. absent: Diminished Bowel Sounds , Hypoactive Bowel Sounds - Extremities Exam Extremities Exam: Normal Inspection. absent: Calf Tenderness, Joint Swelling, Pedal Edema, Tenderness - Back Exam Back Exam: NORMAL INSPECTION - Neurological Exam Neurological Exam: Alert, CN II-XII Intact, Oriented x3 - Psychiatric Exam Psychiatric exam: Normal Affect, Normal Mood - Skin Skin Exam: Dry, Intact, Normal Color, Warm Assessment and Plan - Assessment and Plan (Free Text) Assessment: 87 year old female with a history of systolic congestive heart failure with reduced ejection fraction of 8% with icd and on milrinone drip, atrial fibrillation, hypothyroidism, and gout, admitted for lower extremity pain likely secondary to acute gout attack vs acute on chronic CHF. Lower extremity pain likely secondary to acute gout attack vs acute exacerbation of congestive heart failure with reduced ejection fraction of 8%, resolved lasix 40mg QDaily PO, lasix 20mg PO HS continue allopurinol prednisone taper to 20mg PO cont digoxin, cozaar, metoprolol, isosorbide mononitrate no spironolactone due to history of hyperkalemia daily weights monitor I + O maintain head of bed at 30 degrees OOB as tolerated PT eval and treat cardio consulted watery diarrhea, resolved likely 2/2 cochicine cdiff negative continue to monitor tolerating PO diet well monitor pending placement for [facility] Atrial fibrillation, chronic cont home metoprolol INR 1.97 today, warfarin 5mg po once ordered for tonight lvenox bridge discontinued as of 09/08 recheck hyperkalemia, resolved limit to daily 2g potassium per nephro continue to monitor with daily labs Chronic kidney disease, Stage III of cardiorenal etiology mild hyperkalemia resolved continue to optimize cardiac status avoid all NSAIDS as they will cause loss of renal autoregulation and precipitate DAPHNE and worsening of heart failure nephro consulted cardio consulted hyperuricemia, resolved allopurinol monitor history of hypothyroidism cont home synthroid Dispo: Awaiting [facility] to LTC. Patient will follow up with PMD Dr Green outpatient. Patient seen and case was discussed in detail with Dr. Triny Finley. Jaswinder Degroot D.O. 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 <Leeanne Finley - Last Filed: 09/10/17 07:36> Objective - Vital Signs/Intake and Output Vital Signs (last 24 hours): Temp Pulse Resp BP Pulse Ox 97.9 F 67 18 119/69 100 09/10/17 06:00 09/10/17 06:00 09/10/17 06:00 09/10/17 06:00 09/10/17 06:00 Intake and Output: 09/10/17 09/10/17 06:59 18:59 Intake Total 533 Output Total 500 Balance 33 - Medications Medications: Current Medications Acetaminophen (Tylenol 325mg Tab) 650 mg PO Q6H PRN PRN Reason: Pain, Mild (1-3) Last Admin: 09/03/17 09:40 Dose: 650 mg Allopurinol (Zyloprim) 100 mg PO TID [facility] Last Admin: 09/09/17 19:03 Dose: 100 mg Digoxin (Digoxin) 0.125 mg PO Q48H [facility] Last Admin: 09/08/17 14:55 Dose: 0.125 mg Furosemide (Lasix) 20 mg PO HS [facility] Last Admin: 09/09/17 21:29 Dose: 20 mg Furosemide (Lasix) 20 mg PO DAILY [facility] Milrinone Lactate/Dextrose (Primacor 20mg/100ml D5w) 100 mls @ 6.96 mls/hr IV .[id number] PRN; Protocol; 0.33 MCG/KG/MIN PRN Reason: TITRATE PER MD ORDER Last Admin: 09/09/17 19:07 Dose: 0.33 mcg/kg/min, 6.96 mls/hr Isosorbide Mononitrate (Imdur Er) 30 mg PO DAILY [facility] Last Admin: 09/09/17 10:57 Dose: 30 mg Levothyroxine Sodium (Synthroid) 112 mcg PO 0600 [facility] Last Admin: 09/10/17 05:34 Dose: 112 mcg Losartan Potassium (Cozaar) 25 mg PO DAILY [facility] Last Admin: 09/09/17 10:57 Dose: 25 mg Magnesium Oxide (Mag-Ox) 400 mg PO DAILY [facility] Last Admin: 09/09/17 10:41 Dose: 400 mg Metoprolol Succinate (Toprol Xl) 25 mg PO BRK [facility] Last Admin: 09/09/17 08:37 Dose: 25 mg Pantoprazole Sodium (Protonix Ec Tab) 40 mg PO ACB [facility] Last Admin: 09/09/17 08:37 Dose: 40 mg Prednisone (Prednisone Tab) 10 mg PO DAILY [facility] Spironolactone (Aldactone) 12.5 mg PO DAILY [facility] - Labs Labs: 09/08/17 06:10 09/09/17 07:30 PT 24.1 SECONDS (9.4-12.5) H 09/10/17 06:30 INR 2.06 (0.93-1.08) H 09/10/17 06:30 APTT 32.1 Seconds (25.1-36.5) 09/05/17 06:30 Attending/Attestation - Attestation I have personally seen and examined this patient.: Yes I have fully participated in the care of the patient.: Yes I have reviewed all pertinent clinical information, including history, physical exam and plan: Yes Notes (Text): Patient seen and examined by me at 2:15PM 09/09/17 with resident. Case including physical assessment and plan discussed with resident. Agree with above with following additions/corrections. Patient states she is feeling okay. Feels cold. Patient states she had a soft bowel movement this morning. No chest pain or shortness of breath. No abdominal pain, nausea, or vomiting. No fevers or chills. No headaches or dizziness. No dysuria. No diarrhea or constipation. No pain in her joints or extremities. Physical exam: Gen: Awake and alert sitting up in chair in no acute distress HEENT: Normocephalic atraumatic, extraocular muscles intact, pupils equal reactive, oropharynx is pink and moist, no pharyngeal erythema or exudate appreciated, neck is supple. Cardiovascular: Irregular rhythm, no murmurs rubs or gallops appreciated, bilateral lower extremity with mild pitting edema Pulmonary: Normal respiratory effort. No rhonchi or wheezing appreciated. Mild crackles at bases. Gastrointestinal: Soft, nontender, nondistended, positive bowel sounds all 4 quadrants, no guarding Musculoskeletal: Moves all extremities, no calf tenderness Central nervous system: AAO 3 Dermatologic: Skin warm and dry Assessment and plan: Acute on chronic systolic heart failure. Acute exacerbation resolved. Lasix reduced to 20 mg twice a day secondary metabolic alkalosis. Spironolactone added. Cardiology and nephrology following, recommendations appreciated. Continue with milrinone drip, Cozaar, digoxin, and metoprolol. Continue to monitor daily weights and ins and outs. Acute kidney injury stable. DAPHNE likely secondary to cardiorenal etiology. Continue to monitor BUN/creatinine. Gout resolved. Continue to taper prednisone. Continue with maintenance dose of allopurinol. Discussed with nephrology, no colchicine. Leukocytosis likely reactive to steroids. No signs of infection. Continue to monitor. Elevated LFTs likely secondary to hepatic congestion likely secondary to CHF. Continue to monitor. Anemia is stable. INR slightly subtherapeutic. Coumadin 5 mg 1 dose tonight. Lovenox stopped. Follow-up INR in a.m. Disposition: Pending rehabilitation placement. Case was discussed in detail with the patient and medical referral coordinator at bedside regarding current diagnosis and treatment plan
--- NOTE | 2017-09-09 09:24 | CP.PCM.PN ---
<RonnieScottygris - Last Filed: 09/09/17 12:30> Subjective - Date & Time of Evaluation Date of Evaluation: 09/09/17 Time of Evaluation: 09:00 - Subjective Subjective: PGY-1 Nephrology Progress Note for Dr. Marcum's service Patient was seen and examined at bedside. Patient offers no complaints currently. Patient is tolerating diet. Patient stated that she is urinating and having normal bowel movements with no episodes of diarrhea. Patient has been ambulating without dyspnea on exertion. Patient denies chest pain, shortness of breath, dizziness, nausea and vomiting. Objective - Vital Signs/Intake and Output Vital Signs (last 24 hours): Temp Pulse Resp BP Pulse Ox 98.7 F 66 20 116/54 L 100 09/09/17 06:00 09/09/17 08:37 09/09/17 06:00 09/09/17 08:37 09/09/17 06:00 Intake and Output: 09/09/17 09/09/17 06:59 18:59 Intake Total 620 Balance 620 - Medications Medications: Current Medications Acetaminophen (Tylenol 325mg Tab) 650 mg PO Q6H PRN PRN Reason: Pain, Mild (1-3) Last Admin: 09/03/17 09:40 Dose: 650 mg Allopurinol (Zyloprim) 100 mg PO TID [facility] Last Admin: 09/08/17 18:31 Dose: 100 mg Colchicine (Colocrys) 0.6 mg PO DAILY [facility] Digoxin (Digoxin) 0.125 mg PO Q48H [facility] Last Admin: 09/08/17 14:55 Dose: 0.125 mg Furosemide (Lasix) 40 mg PO DAILY [facility] Last Admin: 09/08/17 11:11 Dose: 40 mg Furosemide (Lasix) 20 mg PO HS [facility] Last Admin: 09/08/17 22:30 Dose: 20 mg Milrinone Lactate/Dextrose (Primacor 20mg/100ml D5w) 100 mls @ 6.96 mls/hr IV .[id number] PRN; Protocol; 0.33 MCG/KG/MIN PRN Reason: TITRATE PER MD ORDER Last Admin: 09/09/17 03:32 Dose: 0.33 mcg/kg/min, 6.96 mls/hr Isosorbide Mononitrate (Imdur Er) 30 mg PO DAILY [facility] Last Admin: 09/08/17 11:15 Dose: 30 mg Levothyroxine Sodium (Synthroid) 112 mcg PO 0600 [facility] Last Admin: 09/09/17 05:08 Dose: 112 mcg Losartan Potassium (Cozaar) 25 mg PO DAILY [facility] Last Admin: 09/08/17 11:10 Dose: 25 mg Magnesium Oxide (Mag-Ox) 400 mg PO DAILY [facility] Last Admin: 09/08/17 11:11 Dose: 400 mg Metoprolol Succinate (Toprol Xl) 25 mg PO BRK [facility] Last Admin: 09/09/17 08:37 Dose: 25 mg Pantoprazole Sodium (Protonix Ec Tab) 40 mg PO ACB [facility] Last Admin: 09/09/17 08:37 Dose: 40 mg Prednisone (Prednisone Tab) 20 mg PO DAILY [facility] Last Admin: 09/08/17 11:11 Dose: 20 mg Warfarin Sodium (Coumadin) 5 mg PO ONCE ONE PRN Reason: Protocol Stop: 09/09/17 18:01 - Labs Labs: 09/08/17 06:10 09/09/17 07:30 PT 23.0 SECONDS (9.4-12.5) H 09/09/17 07:30 INR 1.97 (0.93-1.08) H 09/09/17 07:30 APTT 32.1 Seconds (25.1-36.5) 09/05/17 06:30 - Additional Findings Additional findings: - Constitutional Appears: Non-toxic, No Acute Distress - Eye Exam Eye Exam: absent: Scleral icterus - Respiratory Exam Respiratory Exam: Rales. absent: Respiratory Distress Additional comments: chronic fine rales; - Cardiovascular Exam Cardiovascular Exam: RRR, +S1, +S2. absent: Gallop - GI/Abdominal Exam GI & Abdominal Exam: Soft. absent: Distended, Tenderness - Extremities Exam Additional comments: no edema noted today; - Neurological Exam Neurological Exam: Alert, Awake - Psychiatric Exam Psychiatric exam: Normal Mood. absent: Agitated - Skin Skin Exam: Warm. absent: Cyanosis Assessment and Plan - Assessment and Plan (Free Text) Assessment: Patient is a 87 y.o female admitted with CHF exacerbation on milrinone drip and gout flare. Patient has a past medical history of CHF with severe systolic dysfunction (EF=8%), hypothyroidism, Afib, and gout flares. Plan: Acute Kidney Injury (Resolved) -Cr stable at 1.3 -Cardiorenal etiology of renal insufficiency -Continue meds to optimize cardiac function with B-blockers, ARB and diuretics -Decreased morning dose Lasix 40 to 20mg. -Continue HS Lasix dose 20mg. Congestive Heart Failure -Patient c/o no symptoms after aggressive diuresis with Lasix -Check daily standing weights -Continue milrinone drip Hyperuricemia -Likely secondary to Gout -Colcichine 0.6 daily -Avoid NSAIDS due to DAPHNE -Increased allopurinol 100mg PO TID Diarrhea (Resolved) -Restarted colchicine; Possible side effect of medication is diarrhea -Patient 0 episodes of diarrhea -Continue to monitor <Otoniel Marcum - Last Filed: 09/10/17 07:06> Objective - Vital Signs/Intake and Output Vital Signs (last 24 hours): Temp Pulse Resp BP Pulse Ox 97.5 F L 71 20 115/61 100 09/09/17 22:00 09/09/17 22:00 09/09/17 22:00 09/09/17 22:00 09/09/17 22:00 Intake and Output: 09/09/17 09/10/17 18:59 06:59 Intake Total 100 533 Output Total 500 Balance 100 33 - Medications Medications: Current Medications Acetaminophen (Tylenol 325mg Tab) 650 mg PO Q6H PRN PRN Reason: Pain, Mild (1-3) Last Admin: 09/03/17 09:40 Dose: 650 mg Allopurinol (Zyloprim) 100 mg PO TID [facility] Last Admin: 09/09/17 19:03 Dose: 100 mg Digoxin (Digoxin) 0.125 mg PO Q48H [facility] Last Admin: 09/08/17 14:55 Dose: 0.125 mg Furosemide (Lasix) 20 mg PO HS [facility] Last Admin: 09/09/17 21:29 Dose: 20 mg Furosemide (Lasix) 20 mg PO DAILY [facility] Milrinone Lactate/Dextrose (Primacor 20mg/100ml D5w) 100 mls @ 6.96 mls/hr IV .[id number] PRN; Protocol; 0.33 MCG/KG/MIN PRN Reason: TITRATE PER MD ORDER Last Admin: 09/09/17 19:07 Dose: 0.33 mcg/kg/min, 6.96 mls/hr Isosorbide Mononitrate (Imdur Er) 30 mg PO DAILY [facility] Last Admin: 09/09/17 10:57 Dose: 30 mg Levothyroxine Sodium (Synthroid) 112 mcg PO 0600 [facility] Last Admin: 09/10/17 05:34 Dose: 112 mcg Losartan Potassium (Cozaar) 25 mg PO DAILY [facility] Last Admin: 09/09/17 10:57 Dose: 25 mg Magnesium Oxide (Mag-Ox) 400 mg PO DAILY [facility] Last Admin: 09/09/17 10:41 Dose: 400 mg Metoprolol Succinate (Toprol Xl) 25 mg PO BRK [facility] Last Admin: 09/09/17 08:37 Dose: 25 mg Pantoprazole Sodium (Protonix Ec Tab) 40 mg PO ACB [facility] Last Admin: 09/09/17 08:37 Dose: 40 mg Prednisone (Prednisone Tab) 10 mg PO DAILY [facility] Spironolactone (Aldactone) 12.5 mg PO DAILY [facility] - Labs Labs: 09/08/17 06:10 09/09/17 07:30 PT 23.0 SECONDS (9.4-12.5) H 09/09/17 07:30 INR 1.97 (0.93-1.08) H 09/09/17 07:30 APTT 32.1 Seconds (25.1-36.5) 09/05/17 06:30 Assessment and Plan (1) DAPHNE (acute kidney injury) Status: Resolved (2) HFrEF (heart failure with reduced ejection fraction) Status: Chronic (3) Hyperuricemia Status: Chronic (4) Metabolic alkalosis Status: Chronic Attending/Attestation - Attestation I have personally seen and examined this patient.: Yes I have fully participated in the care of the patient.: Yes I have reviewed all pertinent clinical information, including history, physical exam and plan: Yes Notes (Text): Patient seen and examined; I agree with the resident's note as above with the following edits/additions: 87 yo F w/ severe systolic dysfunction, on home milrinone, admitted with CHF exacerbation and acute gout flare, nephrology following for renal insufficiency; Patient reports feeling well lately; denies any shortness of breath; only ambulating with PT; leg swelling remains much improved; Cardiorenal etiology of renal insufficiency; continue to f/u with cardiology service for optimization with B-emilia, ARB and inotropic agent; Otherwise, renal function stable lately; recommend to continue bid dosing of lasix to avoid sodium retention when effect of lasix wears off; decreasing morning dose to 20 mg PO as metabolic alkalosis is progressing; adding small dose of aldactone 12.5 mg daily to counter alkalosis; continue to check daily weights (generally in the low-mid 150's lb range when euvolemic); Thank you for allowing us to participate in the care of Ms. Barlow, we will continue to follow.
[2017-09-09] MEDS: Magnesium Oxide 400 mg Tab UD PO SCH (10:41)
[2017-09-10] MEDS: Levothyroxine 112 MCG TAB PO SCH (05:34)
[2017-09-10 07:13] LABS: INR 2.06 (0.93-1.08); PROTHROMBIN TIME 24.1 SECONDS (9.4-12.5)
[2017-09-10] MEDS: Pantoprazole 40 mg EC Tab PO SCH (08:17)
[2017-09-10] MEDS: Metoprolol Succinate 25 mg XL Tab PO SCH (08:17)
[2017-09-10] MEDS: Magnesium Oxide 400 mg Tab UD PO SCH (09:53)
[2017-09-10] MEDS: Milrinone 20mg/100ml D5W 100 ML IV PRN (09:58)
[2017-09-10] MEDS: Digoxin 125 mcg (0.125 mg) Tab PO SCH (14:05)
--- NOTE | 2017-09-10 14:40 | CP.PCM.PN ---
<Jaswinder Degroot - Last Filed: 09/10/17 17:04> Subjective - Date & Time of Evaluation Date of Evaluation: 09/10/17 Time of Evaluation: 14:35 - Subjective Subjective: Jaswinder Degroot D.O. PGY-1 -- Family Resident Physician -- Medicine Progress Note Patient was seen at bedside and is doing well today. Patient reports bowel movement, which she described as soft stool. Patient is able to get out of bed to chair without difficulty. Patient is able to tolerate PO diet without issue. Patient denies chest pain, shortness of breath, lower extremity edema, pain in lower extremities, nausea, vomiting, fever, chills and/or dizziness. Patient reports no other complaints today. Objective - Vital Signs/Intake and Output Vital Signs (last 24 hours): Temp Pulse Resp BP Pulse Ox 97.9 F 69 15 120/54 L 100 09/10/17 06:00 09/10/17 09:56 09/10/17 10:00 09/10/17 09:56 09/10/17 06:00 Intake and Output: 09/10/17 09/10/17 06:59 18:59 Intake Total 533 100 Output Total 500 Balance 33 100 - Medications Medications: Current Medications Acetaminophen (Tylenol 325mg Tab) 650 mg PO Q6H PRN PRN Reason: Pain, Mild (1-3) Last Admin: 09/03/17 09:40 Dose: 650 mg Allopurinol (Zyloprim) 100 mg PO TID [facility] Last Admin: 09/10/17 14:05 Dose: 100 mg Digoxin (Digoxin) 0.125 mg PO Q48H [facility] Last Admin: 09/10/17 14:05 Dose: 0.125 mg Furosemide (Lasix) 20 mg PO HS [facility] Last Admin: 09/09/17 21:29 Dose: 20 mg Furosemide (Lasix) 20 mg PO DAILY [facility] Last Admin: 09/10/17 09:56 Dose: 20 mg Milrinone Lactate/Dextrose (Primacor 20mg/100ml D5w) 100 mls @ 6.96 mls/hr IV .[id number] PRN; Protocol; 0.33 MCG/KG/MIN PRN Reason: TITRATE PER MD ORDER Last Admin: 09/10/17 09:58 Dose: 0.33 mcg/kg/min, 6.96 mls/hr Isosorbide Mononitrate (Imdur Er) 30 mg PO DAILY [facility] Last Admin: 09/10/17 09:53 Dose: 30 mg Levothyroxine Sodium (Synthroid) 112 mcg PO 0600 [facility] Last Admin: 09/10/17 05:34 Dose: 112 mcg Losartan Potassium (Cozaar) 25 mg PO DAILY [facility] Last Admin: 09/10/17 09:56 Dose: 25 mg Magnesium Oxide (Mag-Ox) 400 mg PO DAILY [facility] Last Admin: 09/10/17 09:53 Dose: 400 mg Metoprolol Succinate (Toprol Xl) 25 mg PO BRK [facility] Last Admin: 09/10/17 08:17 Dose: 25 mg Pantoprazole Sodium (Protonix Ec Tab) 40 mg PO ACB [facility] Last Admin: 09/10/17 08:17 Dose: 40 mg Prednisone (Prednisone Tab) 10 mg PO DAILY [facility] Last Admin: 09/10/17 09:53 Dose: 10 mg Spironolactone (Aldactone) 12.5 mg PO DAILY [facility] Last Admin: 09/10/17 09:53 Dose: 12.5 mg - Labs Labs: 09/08/17 06:10 09/09/17 07:30 PT 24.1 SECONDS (9.4-12.5) H 09/10/17 06:30 INR 2.06 (0.93-1.08) H 09/10/17 06:30 APTT 32.1 Seconds (25.1-36.5) 09/05/17 06:30 - Constitutional Appears: Well, Non-toxic, No Acute Distress - Head Exam Head Exam: ATRAUMATIC, NORMAL INSPECTION, NORMOCEPHALIC - Eye Exam Eye Exam: Normal appearance. absent: Conjunctival injection, Periorbital swelling, Periorbital tenderness Pupil Exam: NORMAL ACCOMODATION - ENT Exam ENT Exam: Mucous Membranes Moist, Normal Exam - Neck Exam Neck Exam: Full ROM, Normal Inspection. absent: Lymphadenopathy, Tenderness - Respiratory Exam Respiratory Exam: NORMAL BREATHING PATTERN. absent: Accessory Muscle Use, Chest Wall Tenderness, Decreased Breath Sounds, Clear to Ausculation Bilateral, Prolonged Expiratory Phase, Wheezes, Stridor Additional comments: crackles appreciated on auscultation in lower lobes bilaterally - Cardiovascular Exam Cardiovascular Exam: Gallop (S3 gallop appreciated on auscultation ), RRR (at 68 beats per minute ). absent: Bradycardia, Tachycardia, Murmur - GI/Abdominal Exam GI & Abdominal Exam: Soft, Normal Bowel Sounds. absent: Bruit, Distended, Rigid , Tenderness, Diminished Bowel Sounds, Hernia, Hyperactive Bowel Sounds, Hypoactive Bowel Sounds - Extremities Exam Extremities Exam: absent: Pedal Edema - Back Exam Back Exam: NORMAL INSPECTION. absent: rash noted, tenderness - Neurological Exam Neurological Exam: Alert, Awake, CN II-XII Intact, Oriented x3 - Psychiatric Exam Psychiatric exam: Normal Affect, Normal Mood - Skin Skin Exam: Dry, Intact, Normal Color, Warm Assessment and Plan - Assessment and Plan (Free Text) Plan: Assessment: 87 year old female with a history of systolic congestive heart failure with reduced ejection fraction of 8% with icd and on milrinone drip, atrial fibrillation, hypothyroidism, and gout, admitted for lower extremity pain likely secondary to acute gout attack vs acute on chronic CHF. lower extremity pain likely secondary to acute gout attack vs acute exacerbation of congestive heart failure with reduced ejection fraction of 8%, resolved change lasix 20mg PO daily, 20mg PO HS, per nephro QDaily PO, continue allopurinol change prednisone taper to 10mg PO cont digoxin, cozaar, metoprolol, isosorbide mononitrate start spironolactone 12.5mg PO DAILY, per nephrology daily weights monitor I + O maintain head of bed at 30 degrees OOB as tolerated PT eval and treat cardio consulted watery diarrhea, resolved likely 2/2 cochicine cdiff negative CBC recheck ordered continue to monitor tolerating PO diet well monitor Atrial fibrillation, chronic cont home metoprolol INR 2.06 today, warfarin 5mg po once ordered for tonight recheck hyperkalemia, resolved BMP recheck ordered limit to daily 2g potassium per nephro continue to monitor with daily labs Chronic kidney disease, Stage III of cardiorenal etiology continue to optimize cardiac status nephro consulted, appreciated recommendations cardio consulted, appreciated recommendations hyperuricemia, resolved continue allopurinol monitor history of hypothyroidism cont home synthroid Dispo: Awaiting [facility] to [facility]TC. Patient will follow up with PMD Dr Green outpatient. Patient seen and case was discussed in detail with Dr. Triny Finley. Jaswinder Degroot D.O. PGY1 -- [employer] <Leeanne Finley R - Last Filed: 09/10/17 20:18> Objective - Vital Signs/Intake and Output Vital Signs (last 24 hours): Temp Pulse Resp BP Pulse Ox 97.5 F L 70 18 109/47 L 98 09/10/17 16:08 09/10/17 16:08 09/10/17 16:08 09/10/17 16:08 09/10/17 16:08 Intake and Output: 09/10/17 09/11/17 18:59 06:59 Intake Total 450 Output Total 350 Balance 100 - Medications Medications: Current Medications Acetaminophen (Tylenol 325mg Tab) 650 mg PO Q6H PRN PRN Reason: Pain, Mild (1-3) Last Admin: 09/03/17 09:40 Dose: 650 mg Allopurinol (Zyloprim) 100 mg PO TID [facility] Last Admin: 09/10/17 17:47 Dose: 100 mg Digoxin (Digoxin) 0.125 mg PO Q48H [facility] Last Admin: 09/10/17 14:05 Dose: 0.125 mg Furosemide (Lasix) 20 mg PO HS [facility] Last Admin: 09/09/17 21:29 Dose: 20 mg Furosemide (Lasix) 20 mg PO DAILY [facility] Last Admin: 09/10/17 09:56 Dose: 20 mg Milrinone Lactate/Dextrose (Primacor 20mg/100ml D5w) 100 mls @ 6.96 mls/hr IV .[id number] PRN; Protocol; 0.33 MCG/KG/MIN PRN Reason: TITRATE PER MD ORDER Last Admin: 09/10/17 09:58 Dose: 0.33 mcg/kg/min, 6.96 mls/hr Isosorbide Mononitrate (Imdur Er) 30 mg PO DAILY [facility] Last Admin: 09/10/17 09:53 Dose: 30 mg Levothyroxine Sodium (Synthroid) 112 mcg PO 0600 [facility] Last Admin: 09/10/17 05:34 Dose: 112 mcg Losartan Potassium (Cozaar) 25 mg PO DAILY [facility] Last Admin: 09/10/17 09:56 Dose: 25 mg Magnesium Oxide (Mag-Ox) 400 mg PO DAILY [facility] Last Admin: 09/10/17 09:53 Dose: 400 mg Metoprolol Succinate (Toprol Xl) 25 mg PO BRK [facility] Last Admin: 09/10/17 08:17 Dose: 25 mg Pantoprazole Sodium (Protonix Ec Tab) 40 mg PO ACB [facility] Last Admin: 09/10/17 08:17 Dose: 40 mg Prednisone (Prednisone Tab) 10 mg PO DAILY [facility] Last Admin: 09/10/17 09:53 Dose: 10 mg Spironolactone (Aldactone) 12.5 mg PO DAILY [facility] Last Admin: 09/10/17 09:53 Dose: 12.5 mg Warfarin Sodium (Coumadin) 5 mg PO 1800 [facility] PRN Reason: Protocol Last Admin: 09/10/17 17:47 Dose: 5 mg - Labs Labs: 09/08/17 06:10 09/09/17 07:30 PT 24.1 SECONDS (9.4-12.5) H 09/10/17 06:30 INR 2.06 (0.93-1.08) H 09/10/17 06:30 APTT 32.1 Seconds (25.1-36.5) 09/05/17 06:30 Attending/Attestation - Attestation I have personally seen and examined this patient.: Yes I have fully participated in the care of the patient.: Yes I have reviewed all pertinent clinical information, including history, physical exam and plan: Yes Notes (Text): Patient seen and examined by me at 9:55AM with resident. Case including physical assessment and plan discussed with resident. Agree with above with following additions/corrections. Patient states she is feeling pretty good. States she had a regular bowel movement today. No chest pain or shortness of breath. No abdominal pain, nausea , or vomiting. No fevers or chills. No headaches or dizziness. No dysuria. No diarrhea or constipation. No pain in her joints or extremities. Physical exam: Gen: Awake and alert sitting up in chair in no acute distress HEENT: Normocephalic atraumatic, extraocular muscles intact, pupils equal reactive, oropharynx is pink and moist, no pharyngeal erythema or exudate appreciated, neck is supple. Cardiovascular: Irregular rhythm, no murmurs or rubs appreciated, positive S3. bilateral lower extremity with mild pitting edema Pulmonary: Normal respiratory effort. No rhonchi, rales or wheezing appreciated. Gastrointestinal: Soft, nontender, nondistended, positive bowel sounds all 4 quadrants, no guarding Musculoskeletal: Moves all extremities, no calf tenderness Central nervous system: AAO 3 Dermatologic: Skin warm and dry Assessment and plan: Acute on chronic systolic heart failure. Acute exacerbation resolved. Patient compensated. Continue Lasix 20 mg twice a day. With metabolic alkalosis. Continue Spironolactone. Cardiology and nephrology following, recommendations appreciated. Continue with milrinone drip, Cozaar, digoxin, and metoprolol. Continue to monitor daily weights and ins and outs. BUN stable. Creatinine within normal limits. DAPHNE likely secondary to cardiorenal etiology. Continue to monitor BUN/creatinine. Gout resolved. Continue to taper prednisone. Continue with allopurinol for maintenance. Discussed with nephrology, no colchicine. Leukocytosis likely reactive to steroids. No signs of infection. Continue to monitor. Elevated LFTs likely secondary to hepatic congestion likely secondary to CHF. Continue to monitor. Anemia is stable. INR therapeutic. Coumadin 5 mg 1 dose tonight. Follow-up INR in a.m. Disposition: Pending rehabilitation placement. Case was discussed in detail with the patient and nuclear medicine medical director at bedside regarding current diagnosis and treatment plan
[2017-09-11] MEDS: Milrinone 20mg/100ml D5W 100 ML IV PRN ×2 (01:15→14:54)
[2017-09-11] MEDS: Levothyroxine 112 MCG TAB PO SCH (05:43)
--- NOTE | 2017-09-11 07:52 | CP.PCM.PN ---
Subjective - Date & Time of Evaluation Date of Evaluation: 09/10/17 Time of Evaluation: 09:30 - Subjective Subjective: Patient reports feeling well; no breathing complaints; tolerating diet; awaiting placement; Objective - Vital Signs/Intake and Output Vital Signs (last 24 hours): Temp Pulse Resp BP Pulse Ox 97.5 F L 70 20 96/45 L 97 09/10/17 21:48 09/10/17 21:48 09/10/17 21:48 09/10/17 22:00 09/10/17 21:48 Intake and Output: 09/11/17 09/11/17 06:59 18:59 Intake Total 820 Balance 820 - Medications Medications: Current Medications Acetaminophen (Tylenol 325mg Tab) 650 mg PO Q6H PRN PRN Reason: Pain, Mild (1-3) Last Admin: 09/03/17 09:40 Dose: 650 mg Allopurinol (Zyloprim) 100 mg PO TID [facility] Last Admin: 09/10/17 17:47 Dose: 100 mg Digoxin (Digoxin) 0.125 mg PO Q48H [facility] Last Admin: 09/10/17 14:05 Dose: 0.125 mg Furosemide (Lasix) 20 mg PO HS [facility] Last Admin: 09/10/17 22:00 Dose: 20 mg Furosemide (Lasix) 20 mg PO DAILY [facility] Last Admin: 09/10/17 09:56 Dose: 20 mg Milrinone Lactate/Dextrose (Primacor 20mg/100ml D5w) 100 mls @ 6.96 mls/hr IV .[id number] PRN; Protocol; 0.33 MCG/KG/MIN PRN Reason: TITRATE PER MD ORDER Last Admin: 09/11/17 01:15 Dose: 0.33 mcg/kg/min, 6.96 mls/hr Isosorbide Mononitrate (Imdur Er) 30 mg PO DAILY [facility] Last Admin: 09/10/17 09:53 Dose: 30 mg Levothyroxine Sodium (Synthroid) 112 mcg PO 0600 [facility] Last Admin: 09/11/17 05:43 Dose: 112 mcg Losartan Potassium (Cozaar) 25 mg PO DAILY [facility] Last Admin: 09/10/17 09:56 Dose: 25 mg Magnesium Oxide (Mag-Ox) 400 mg PO DAILY [facility] Last Admin: 07/07/18 09:53 Dose: 400 mg Metoprolol Succinate (Toprol Xl) 25 mg PO BRK [facility] Last Admin: 09/10/17 08:17 Dose: 25 mg Pantoprazole Sodium (Protonix Ec Tab) 40 mg PO ACB [facility] Last Admin: 09/10/17 08:17 Dose: 40 mg Prednisone (Prednisone Tab) 10 mg PO DAILY [facility] Last Admin: 09/10/17 09:53 Dose: 10 mg Spironolactone (Aldactone) 12.5 mg PO DAILY [facility] Last Admin: 09/10/17 09:53 Dose: 12.5 mg Warfarin Sodium (Coumadin) 5 mg PO 1800 [facility] PRN Reason: Protocol Last Admin: 09/10/17 17:47 Dose: 5 mg - Labs Labs: 09/08/17 06:10 09/09/17 07:30 PT 24.1 SECONDS (9.4-12.5) H 09/10/17 06:30 INR 2.06 (0.93-1.08) H 09/10/17 06:30 APTT 32.1 Seconds (25.1-36.5) 09/05/17 06:30 - Constitutional Appears: Non-toxic, No Acute Distress - Eye Exam Eye Exam: absent: Scleral icterus - Respiratory Exam Respiratory Exam: absent: Respiratory Distress Additional comments: chronic fine rales b/l - Cardiovascular Exam Cardiovascular Exam: RRR, +S1, +S2. absent: Gallop - GI/Abdominal Exam GI & Abdominal Exam: absent: Distended - Extremities Exam Additional comments: minimal lower leg edema; - Neurological Exam Neurological Exam: Alert, Awake - Psychiatric Exam Psychiatric exam: Normal Mood. absent: Agitated - Skin Skin Exam: Warm. absent: Cyanosis Assessment and Plan (1) Renal insufficiency Assessment & Plan: Stable and relatively mild renal insufficiency of cardiorenal etiology; continue to optimize CHF status per cardio recs; recommend to continue on bid dosing of lasix 20 mg daily; check daily standing weights (target is in low to mid 150's lbs); Status: Chronic (2) HFrEF (heart failure with reduced ejection fraction) Assessment & Plan: Asymptomatic and euvolemic on exam; continue heart failure meds; Status: Chronic (3) Hyperuricemia Assessment & Plan: Gout flare resolved; continue allopurinol 100 mg tid; target uric acid level < 6.0, titrate dose upward as needed; Status: Chronic (4) Metabolic alkalosis Assessment & Plan: In the setting of being on standing loop diuretics; aldactone 12.5 mg daily added to counter alkalosis; Status: Acute
[2017-09-11 07:59] LABS: BASO # 0.01 K/mm3 (0.0-2.0); BASO % 0.1 % (0.0-3.0); EOS # 0.4 (0.0-0.7); EOS % 2.8 % (1.5-5.0); GRAN # 8.82 (1.4-6.5); GRAN % 67.9 % (50.0-68.0); LYMPH # 2.9 (1.2-3.4); LYMPH % 22.1 % (22.0-35.0); MEAN CELL VOLUME 92.9 fl (80.0-105.0); MEAN CORPUSCULAR HEMOGLOBIN 30.8 pg (25.0-35.0); MEAN CORPUSCULAR HGB CONC 33.1 g/dl (31.0-37.0); MEAN PLATELET VOLUME 10.6 fl (7.0-11.0); MONO # 0.9 (0.1-0.6); MONO % 7.1 % (1.0-6.0); RBC 3.25 10^6/uL (3.5-6.1); RED CELL DISTRIBUTION WIDTH 15.7 % (11.5-14.5)
--- NOTE | 2017-09-11 08:13 | CP.PCM.PN ---
<Jaswinder Degroot - Last Filed: 09/11/17 18:56> Subjective - Date & Time of Evaluation Date of Evaluation: 09/11/17 Time of Evaluation: 08:10 - Subjective Subjective: Jaswinder Degroot D.O. PGY-1 -- Family Resident Physician -- Medicine Progress Note Today, patient was seen at bedside. Patient with no complaints overnight. Patient is tolerating her diet, and is without complaints. Patient denies chest pain, abdominal pain, headache, shortness of breath, fever, chills, joint pain, nausea, and/or vomiting. Objective - Vital Signs/Intake and Output Vital Signs (last 24 hours): Temp Pulse Resp BP Pulse Ox 97.5 F L 70 20 96/45 L 97 09/10/17 21:48 09/10/17 21:48 09/10/17 21:48 09/10/17 22:00 09/10/17 21:48 Intake and Output: 09/11/17 09/11/17 06:59 18:59 Intake Total 820 Balance 820 - Medications Medications: Current Medications Acetaminophen (Tylenol 325mg Tab) 650 mg PO Q6H PRN PRN Reason: Pain, Mild (1-3) Last Admin: 09/03/17 09:40 Dose: 650 mg Allopurinol (Zyloprim) 100 mg PO TID [facility] Last Admin: 09/10/17 17:47 Dose: 100 mg Digoxin (Digoxin) 0.125 mg PO Q48H [facility] Last Admin: 09/10/17 14:05 Dose: 0.125 mg Furosemide (Lasix) 20 mg PO HS [facility] Last Admin: 09/10/17 22:00 Dose: 20 mg Furosemide (Lasix) 20 mg PO DAILY [facility] Last Admin: 09/10/17 09:56 Dose: 20 mg Milrinone Lactate/Dextrose (Primacor 20mg/100ml D5w) 100 mls @ 6.96 mls/hr IV .[id number] PRN; Protocol; 0.33 MCG/KG/MIN PRN Reason: TITRATE PER MD ORDER Last Admin: 09/11/17 01:15 Dose: 0.33 mcg/kg/min, 6.96 mls/hr Isosorbide Mononitrate (Imdur Er) 30 mg PO DAILY [facility] Last Admin: 09/10/17 09:53 Dose: 30 mg Levothyroxine Sodium (Synthroid) 112 mcg PO 0600 [facility] Last Admin: 09/11/17 05:43 Dose: 112 mcg Losartan Potassium (Cozaar) 25 mg PO DAILY [facility] Last Admin: 09/10/17 09:56 Dose: 25 mg Magnesium Oxide (Mag-Ox) 400 mg PO DAILY [facility] Last Admin: 09/10/17 09:53 Dose: 400 mg Metoprolol Succinate (Toprol Xl) 25 mg PO BRK [facility] Last Admin: 09/10/17 08:17 Dose: 25 mg Pantoprazole Sodium (Protonix Ec Tab) 40 mg PO ACB [facility] Last Admin: 09/10/17 08:17 Dose: 40 mg Prednisone (Prednisone Tab) 10 mg PO DAILY [facility] Last Admin: 09/10/17 09:53 Dose: 10 mg Spironolactone (Aldactone) 12.5 mg PO DAILY [facility] Last Admin: 09/10/17 09:53 Dose: 12.5 mg Warfarin Sodium (Coumadin) 5 mg PO 1800 [facility] PRN Reason: Protocol Last Admin: 09/10/17 17:47 Dose: 5 mg - Labs Labs: 09/11/17 07:00 09/09/17 07:30 PT 24.1 SECONDS (9.4-12.5) H 09/10/17 06:30 INR 2.06 (0.93-1.08) H 09/10/17 06:30 APTT 32.1 Seconds (25.1-36.5) 09/05/17 06:30 - Constitutional Appears: Well, Non-toxic, No Acute Distress - Head Exam Head Exam: ATRAUMATIC, NORMAL INSPECTION, NORMOCEPHALIC - Eye Exam Eye Exam: Normal appearance. absent: Conjunctival injection, Scleral icterus Pupil Exam: NORMAL ACCOMODATION - ENT Exam ENT Exam: Mucous Membranes Moist, Normal Exam - Neck Exam Neck Exam: Full ROM, Normal Inspection. absent: Lymphadenopathy, Tenderness - Respiratory Exam Respiratory Exam: NORMAL BREATHING PATTERN. absent: Accessory Muscle Use, Chest Wall Tenderness, Decreased Breath Sounds, Clear to Ausculation Bilateral ( crackles appreciated on auscultation bilaterally in lower lung kraus ), Prolonged Expiratory Phase, Rales, Rhonchi, Wheezes, Respiratory Distress, Stridor - Cardiovascular Exam Cardiovascular Exam: Gallop (S3 gallop appreciated on auscultation ), REGULAR RHYTHM (at 70 beats per minute ). absent: Bradycardia, Tachycardia, Diastolic murmur, Rubs - GI/Abdominal Exam GI & Abdominal Exam: Soft, Normal Bowel Sounds. absent: Bruit, Distended, Firm , Guarding, Rigid, Tenderness, Diminished Bowel Sounds - Extremities Exam Extremities Exam: Normal Inspection. absent: Tenderness - Back Exam Back Exam: NORMAL INSPECTION. absent: paraspinal tenderness - Neurological Exam Neurological Exam: Alert, Awake, CN II-XII Intact, Oriented x3 - Psychiatric Exam Psychiatric exam: Normal Affect, Normal Mood - Skin Skin Exam: Dry, Intact, Normal Color, Warm Assessment and Plan - Assessment and Plan (Free Text) Assessment: 87 [id number] with a past medical history of systolic congestive heart failure (CHF) with reduced ejection fraction (EF) of 8% with icd and on milrinone drip, atrial fibrillation, hypothyroidism, and gout, admitted for lower extremity (LE) pain likely secondary to acute gout attack vs acute on chronic CHF LE pain secondary to acute gouty attack versus acute exacerbation of CHF with reduced EF of 8%, resolved Continue lasix 20mg PO daily, 20mg PO HS, as per nephro Continue allopurinol Prednisone taper to 5mg PO starting tomorrow x 3 days Continue digoxin, cozaar, metoprolol, isosorbide mononitrate Continue spironolactone 12.5mg PO DAILY, per nephrology Daily weights Monitor I + O Maintain head of bed at 30 degrees OOB as tolerated PT eval and treat Cardio consulted, recommendations appreciated Atrial fibrillation, chronic Continue metoprolol INR: 2.35 today Warfarin 4mg PO once Repeat INR ordered Hyperkalemia, resolved Repeat BMP ordered Continue with 2g limit of potassium, as per nephrology Continue to monitor with daily labs Chronic kidney disease, Stage III of cardiorenal etiology Continue to optimize cardiac status Nephrology consulted, appreciated recommendations Cardiology consulted, appreciated recommendations Watery diarrhea, resolved Likely 2/2 cochicine C.diff negative CBC recheck ordered Continue to monitor Tolerating PO diet well Hyperuricemia, resolved continue allopurinol continue to monitor History of hypothyroidism Continue synthroid Dispo: Pending placement [facility] to [facility]. Patient seen and case was discussed in detail with Dr. Triny Finley. Jaswinder Degroot D.O. PGY1 -- Librarian Special Library <Leeanne Finley R - Last Filed: 09/11/17 23:25> Objective - Vital Signs/Intake and Output Vital Signs (last 24 hours): Temp Pulse Resp BP Pulse Ox 97.6 F 70 18 109/61 99 09/11/17 21:49 09/11/17 21:49 09/11/17 21:49 09/11/17 21:49 09/11/17 21:49 Intake and Output: 09/11/17 09/12/17 18:59 06:59 Intake Total 100 360 Balance 100 360 - Medications Medications: Current Medications Acetaminophen (Tylenol 325mg Tab) 650 mg PO Q6H PRN PRN Reason: Pain, Mild (1-3) Last Admin: 09/11/17 08:52 Dose: 650 mg Allopurinol (Zyloprim) 100 mg PO TID [facility] Last Admin: 09/11/17 17:46 Dose: 100 mg Digoxin (Digoxin) 0.125 mg PO Q48H [facility] Last Admin: 09/10/17 14:05 Dose: 0.125 mg Furosemide (Lasix) 20 mg PO HS [facility] Last Admin: 09/11/17 21:09 Dose: 20 mg Furosemide (Lasix) 20 mg PO DAILY [facility] Last Admin: 09/11/17 10:36 Dose: 20 mg Milrinone Lactate/Dextrose (Primacor 20mg/100ml D5w) 100 mls @ 6.96 mls/hr IV .[id number] PRN; Protocol; 0.33 MCG/KG/MIN PRN Reason: TITRATE PER MD ORDER Last Admin: 09/11/17 14:54 Dose: 0.33 mcg/kg/min, 6.96 mls/hr Isosorbide Mononitrate (Imdur Er) 30 mg PO DAILY [facility] Last Admin: 09/11/17 10:36 Dose: 30 mg Levothyroxine Sodium (Synthroid) 112 mcg PO 0600 [facility] Last Admin: 09/11/17 05:43 Dose: 112 mcg Losartan Potassium (Cozaar) 25 mg PO DAILY [facility] Last Admin: 09/11/17 10:35 Dose: Not Given Magnesium Oxide (Mag-Ox) 400 mg PO DAILY [facility] Last Admin: 09/11/17 10:35 Dose: 400 mg Metoprolol Succinate (Toprol Xl) 25 mg PO BRK [facility] Last Admin: 09/11/17 08:30 Dose: 25 mg Pantoprazole Sodium (Protonix Ec Tab) 40 mg PO ACB [facility] Last Admin: 09/11/17 08:30 Dose: 40 mg Prednisone (Prednisone Tab) 5 mg PO DAILY [facility] Spironolactone (Aldactone) 12.5 mg PO DAILY [facility] Last Admin: 09/11/17 10:36 Dose: 12.5 mg Warfarin Sodium (Coumadin) 4 mg PO 1800 [facility] Last Admin: 09/11/17 17:46 Dose: 4 mg - Labs Labs: 09/11/17 07:00 09/11/17 07:00 PT 27.5 SECONDS (9.4-12.5) H 09/11/17 07:30 INR 2.35 (0.93-1.08) H 09/11/17 07:30 APTT 32.1 Seconds (25.1-36.5) 09/05/17 06:30 Attending/Attestation - Attestation I have personally seen and examined this patient.: Yes I have fully participated in the care of the patient.: Yes I have reviewed all pertinent clinical information, including history, physical exam and plan: Yes Notes (Text): Patient seen and examined by me at 11:10AM with resident. Case including physical assessment and plan discussed with resident. Agree with above with following additions/corrections. Patient states she is feeling ok. Feels tired today after being washed with the nurse. Had a bowel movement this morning. Patient denies chest pain or shortness of breath. No abdominal pain, nausea, or vomiting. No fevers or chills. No headaches or dizziness. No dysuria. No diarrhea or constipation. No pain in her joints or extremities. Physical exam: Gen: Awake and alert sitting up in chair in no acute distress HEENT: Normocephalic atraumatic, extraocular muscles intact, pupils equal reactive, oropharynx is pink and moist, no pharyngeal erythema or exudate appreciated, neck is supple. Cardiovascular: Irregular rhythm, no murmurs or rubs appreciated, positive S3. bilateral lower extremity with mild pitting edema Pulmonary: Normal respiratory effort. No rhonchi, rales or wheezing appreciated. Gastrointestinal: Soft, nontender, nondistended, positive bowel sounds all 4 quadrants, no guarding Musculoskeletal: Moves all extremities, no calf tenderness Central nervous system: AAO 3 Dermatologic: Skin warm and dry Assessment and plan: Acute on chronic systolic heart failure. Acute exacerbation resolved. Patient compensated. Continue Lasix 20 mg twice a day. Continue Spironolactone to counter act metabolic alkalosis per nephro. Cardiology and nephrology following, recommendations appreciated. Continue with milrinone drip, Cozaar, digoxin, and metoprolol. Continue to monitor daily weights and ins and outs. BUN and Creatinine elevated. DAPHNE likely secondary to cardiorenal etiology. Continue to monitor BUN/creatinine. Gout resolved. Continue to taper prednisone. Continue with allopurinol for maintenance. Leukocytosis likely reactive to steroids. No signs of infection. Afebrile. Continue to monitor. Elevated LFTs likely secondary to hepatic congestion likely secondary to CHF. Continue to monitor. Anemia is stable. INR therapeutic. Continue Coumadin. Follow-up INR in a.m. Disposition: Pending rehabilitation placement. Case was discussed in detail with the patient and biomedical engineering aide at bedside regarding current diagnosis and treatment plan
[2017-09-11 08:16] LABS: CALCIUM 8.4 mg/dL (8.4-10.5)
[2017-09-11] MEDS: Pantoprazole 40 mg EC Tab PO SCH (08:30)
[2017-09-11] MEDS: Metoprolol Succinate 25 mg XL Tab PO SCH (08:30)
[2017-09-11 08:32] LABS: INR 2.35 (0.93-1.08); PROTHROMBIN TIME 27.5 SECONDS (9.4-12.5)
[2017-09-11] MEDS: Magnesium Oxide 400 mg Tab UD PO SCH (10:35)
[2017-09-12] MEDS: Levothyroxine 112 MCG TAB PO SCH (05:23)
[2017-09-12] MEDS: Milrinone 20mg/100ml D5W 100 ML IV PRN ×2 (05:41→21:57)
[2017-09-12 07:28] LABS: BASO # 0.01 K/mm3 (0.0-2.0); BASO % 0.1 % (0.0-3.0); EOS # 0.3 (0.0-0.7); EOS % 2.7 % (1.5-5.0); GRAN # 7.38 (1.4-6.5); GRAN % 66.5 % (50.0-68.0); HEMOGLOBIN 10.1 g/dL (12.0-16.0); LYMPH # 2.6 (1.2-3.4); LYMPH % 23.2 % (22.0-35.0); MEAN CELL VOLUME 91.8 fl (80.0-105.0); MEAN CORPUSCULAR HEMOGLOBIN 30.6 pg (25.0-35.0); MEAN CORPUSCULAR HGB CONC 33.3 g/dl (31.0-37.0); MEAN PLATELET VOLUME 10.3 fl (7.0-11.0); MONO # 0.8 (0.1-0.6); MONO % 7.5 % (1.0-6.0); RBC 3.3 10^6/uL (3.5-6.1); RED CELL DISTRIBUTION WIDTH 15.9 % (11.5-14.5); WHITE BLOOD COUNT 11.1 10^3/ul (4.5-11.0)
[2017-09-12 07:42] LABS: ALB/GLOB RATIO 1.1 (1.1-1.8); ALBUMIN 3.1 g/dL (3.0-4.8); CALCIUM 8.4 mg/dL (8.4-10.5)
[2017-09-12 07:47] LABS: INR 2.65 (0.93-1.08); PROTHROMBIN TIME 31.1 SECONDS (9.4-12.5)
[2017-09-12] MEDS: Pantoprazole 40 mg EC Tab PO SCH (09:46)
[2017-09-12] MEDS: Metoprolol Succinate 25 mg XL Tab PO SCH (09:47)
[2017-09-12] MEDS: Magnesium Oxide 400 mg Tab UD PO SCH (09:48)
--- NOTE | 2017-09-12 12:49 | CP.PCM.PN ---
Subjective - Date & Time of Evaluation Date of Evaluation: 09/12/17 Time of Evaluation: 10:00 - Subjective Subjective: PGY-1 Nephrology Progress Note for Dr. Marcum's Service Patient seen and examined at bedside. Patient reports feeling good. Patient ambulated with assistance and had no breathing difficulties. Patient is making good urine output with no complaints. Patient has good appetite. Patient is aware that [facility] Patient denies chest pain, shortness of breath, n/v/c/d, and dizziness. Objective - Vital Signs/Intake and Output Vital Signs (last 24 hours): Temp Pulse Resp BP Pulse Ox 97.8 F 68 18 114/60 100 09/12/17 06:00 09/12/17 06:00 09/12/17 06:00 09/12/17 09:48 09/12/17 11:53 Intake and Output: 09/12/17 09/12/17 06:59 18:59 Intake Total 580 Balance 580 - Medications Medications: Current Medications Acetaminophen (Tylenol 325mg Tab) 650 mg PO Q6H PRN PRN Reason: Pain, Mild (1-3) Last Admin: 09/11/17 08:52 Dose: 650 mg Allopurinol (Zyloprim) 100 mg PO TID [facility] Last Admin: 09/12/17 09:46 Dose: 100 mg Digoxin (Digoxin) 0.125 mg PO Q48H [facility] Last Admin: 09/10/17 14:05 Dose: 0.125 mg Furosemide (Lasix) 20 mg PO HS [facility] Last Admin: 09/11/17 21:09 Dose: 20 mg Furosemide (Lasix) 20 mg PO DAILY [facility] Last Admin: 09/12/17 09:46 Dose: 20 mg Milrinone Lactate/Dextrose (Primacor 20mg/100ml D5w) 100 mls @ 6.96 mls/hr IV .[id number] PRN; Protocol; 0.33 MCG/KG/MIN PRN Reason: TITRATE PER MD ORDER Last Admin: 09/12/17 05:41 Dose: 0.33 mcg/kg/min, 6.96 mls/hr Isosorbide Mononitrate (Imdur Er) 30 mg PO DAILY [facility] Last Admin: 09/12/17 09:48 Dose: 30 mg Levothyroxine Sodium (Synthroid) 112 mcg PO 0600 [facility] Last Admin: 09/12/17 05:23 Dose: 112 mcg Losartan Potassium (Cozaar) 25 mg PO DAILY [facility] Last Admin: 09/12/17 09:48 Dose: 25 mg Magnesium Oxide (Mag-Ox) 400 mg PO DAILY [facility] Last Admin: 09/12/17 09:48 Dose: 400 mg Metoprolol Succinate (Toprol Xl) 25 mg PO BRK [facility] Last Admin: 09/12/17 09:47 Dose: 25 mg Pantoprazole Sodium (Protonix Ec Tab) 40 mg PO ACB [facility] Last Admin: 09/12/17 09:46 Dose: 40 mg Prednisone (Prednisone Tab) 5 mg PO DAILY [facility] Last Admin: 09/12/17 09:47 Dose: 5 mg Spironolactone (Aldactone) 12.5 mg PO DAILY [facility] Last Admin: 09/12/17 09:48 Dose: 12.5 mg Warfarin Sodium (Coumadin) 4 mg PO 1800 [facility] Last Admin: 09/11/17 17:46 Dose: 4 mg - Labs Labs: 09/12/17 07:20 09/12/17 07:20 PT 31.1 SECONDS (9.4-12.5) H 09/12/17 07:20 INR 2.65 (0.93-1.08) H 09/12/17 07:20 APTT 32.1 Seconds (25.1-36.5) 09/05/17 06:30 - Additional Findings Additional findings: - Constitutional Appears: Non-toxic, No Acute Distress - Eye Exam Eye Exam: absent: Scleral icterus - Respiratory Exam Respiratory Exam: absent: Respiratory Distress Additional comments: chronic fine rales b/l - Cardiovascular Exam Cardiovascular Exam: RRR, +S1, +S2. absent: Gallop - GI/Abdominal Exam GI & Abdominal Exam: absent: Distended - Extremities Exam Additional comments: minimal lower leg edema; - Neurological Exam Neurological Exam: Alert, Awake - Psychiatric Exam Psychiatric exam: Normal Mood. absent: Agitated - Skin Skin Exam: Warm. absent: Cyanosis Assessment and Plan - Assessment and Plan (Free Text) Assessment: Patient is a 87 y.o female admitted with CHF exacerbation (on milrinone drip) and gout flare up. Patient has a past medical history of CHF with severe systolic dysfunction (EF=8%), hypothyroidism, Afib, and gout flares. Plan: (1) Renal insufficiency Assessment & Plan: Stable and relatively mild renal insufficiency of cardiorenal etiology; continue to optimize CHF status per cardio recs; Continue on bid dosing of lasix 20 mg daily; check daily standing weights (target is in low to mid 150's lbs); Status: Chronic (2) HFrEF (heart failure with reduced ejection fraction) Assessment & Plan: Asymptomatic and euvolemic on exam; continue heart failure meds; leg edema has improved Status: Chronic (3) Hyperuricemia Assessment & Plan: Gout flare resolved Continue allopurinol 100 mg tid Target uric acid level < 6.0, titrate dose upward as needed; Status: Chronic (4) Metabolic alkalosis Assessment & Plan: Continue Lasix at 20 bid; Continue Aldactone to counter the alkalosis of loop diuretic Status: Acute Discussed with primary team. Patient is [facility] in [facility].
[2017-09-12] MEDS: Digoxin 125 mcg (0.125 mg) Tab PO SCH (13:39)
--- NOTE | 2017-09-12 15:42 | CP.PCM.PN ---
<Archie Jorge - Last Filed: 09/12/17 15:28> Subjective - Date & Time of Evaluation Date of Evaluation: 09/12/17 Time of Evaluation: 15:28 - Subjective Subjective: Medicine Progress Note: Pt seen and examined at bedside. No acute overnight events. Patient states she is doing well. Diarrhea has resolved. Patient is OOB to chair. Patient denies CP , SOB, n/v/d, abdominal pain, fever, chills, RIVERA, or dizziness. Objective - Vital Signs/Intake and Output Vital Signs (last 24 hours): Temp Pulse Resp BP Pulse Ox 97.8 F 68 18 114/60 100 09/12/17 06:00 09/12/17 06:00 09/12/17 06:00 09/12/17 09:48 09/12/17 11:53 Intake and Output: 09/12/17 09/12/17 06:59 18:59 Intake Total 580 Balance 580 - Medications Medications: Current Medications Acetaminophen (Tylenol 325mg Tab) 650 mg PO Q6H PRN PRN Reason: Pain, Mild (1-3) Last Admin: 09/11/17 08:52 Dose: 650 mg Allopurinol (Zyloprim) 100 mg PO TID [facility] Last Admin: 09/12/17 13:39 Dose: 100 mg Digoxin (Digoxin) 0.125 mg PO Q48H [facility] Last Admin: 09/12/17 13:39 Dose: 0.125 mg Furosemide (Lasix) 20 mg PO HS [facility] Last Admin: 09/11/17 21:09 Dose: 20 mg Furosemide (Lasix) 20 mg PO DAILY [facility] Last Admin: 09/12/17 09:46 Dose: 20 mg Milrinone Lactate/Dextrose (Primacor 20mg/100ml D5w) 100 mls @ 6.96 mls/hr IV .[id number] PRN; Protocol; 0.33 MCG/KG/MIN PRN Reason: TITRATE PER MD ORDER Last Admin: 09/12/17 05:41 Dose: 0.33 mcg/kg/min, 6.96 mls/hr Isosorbide Mononitrate (Imdur Er) 30 mg PO DAILY [facility] Last Admin: 09/12/17 09:48 Dose: 30 mg Levothyroxine Sodium (Synthroid) 112 mcg PO 0600 [facility] Last Admin: 09/12/17 05:23 Dose: 112 mcg Losartan Potassium (Cozaar) 25 mg PO DAILY [facility] Last Admin: 09/12/17 09:48 Dose: 25 mg Magnesium Oxide (Mag-Ox) 400 mg PO DAILY [facility] Last Admin: 09/12/17 09:48 Dose: 400 mg Metoprolol Succinate (Toprol Xl) 25 mg PO BRK [facility] Last Admin: 09/12/17 09:47 Dose: 25 mg Pantoprazole Sodium (Protonix Ec Tab) 40 mg PO ACB [facility] Last Admin: 09/12/17 09:46 Dose: 40 mg Prednisone (Prednisone Tab) 5 mg PO DAILY [facility] Last Admin: 09/12/17 09:47 Dose: 5 mg Spironolactone (Aldactone) 12.5 mg PO DAILY [facility] Last Admin: 09/12/17 09:48 Dose: 12.5 mg Warfarin Sodium (Coumadin) 3 mg PO 1800 [facility] Warfarin Sodium (Coumadin) 3 mg PO 1800 [facility] - Labs Labs: 09/12/17 07:20 09/12/17 07:20 PT 31.1 SECONDS (9.4-12.5) H 09/12/17 07:20 INR 2.65 (0.93-1.08) H 09/12/17 07:20 APTT 32.1 Seconds (25.1-36.5) 09/05/17 06:30 - Constitutional Appears: No Acute Distress - Head Exam Head Exam: ATRAUMATIC, NORMAL INSPECTION, NORMOCEPHALIC - Eye Exam Eye Exam: Normal appearance - ENT Exam ENT Exam: Normal Exam - Neck Exam Neck Exam: Normal Inspection - Respiratory Exam Respiratory Exam: Clear to Ausculation Bilateral. absent: Rales, Rhonchi, Wheezes - Cardiovascular Exam Cardiovascular Exam: RRR, +S1, +S2. absent: Gallop, Rubs, Murmur - GI/Abdominal Exam GI & Abdominal Exam: Soft. absent: Distended, Guarding, Tenderness, Rebound - Extremities Exam Extremities Exam: Pedal Edema (1+) - Back Exam Back Exam: NORMAL INSPECTION - Neurological Exam Neurological Exam: Alert, Awake, Oriented x3 - Psychiatric Exam Psychiatric exam: Normal Affect, Normal Mood - Skin Skin Exam: Dry, Intact, Normal Color, Warm Assessment and Plan - Assessment and Plan (Free Text) Assessment: 87 [id number] with a past medical history of systolic congestive heart failure (CHF) with reduced ejection fraction (EF) of 8% with icd and on milrinone drip, atrial fibrillation, hypothyroidism, and gout, admitted for lower extremity (LE) pain likely 2/2 acute gout attack and acute on chronic CHF exacerbation. Plan: Chronic systolic CHF (EF 8%), Acute exacerbation resolved - Cont Milrinone - Cont lasix 20mg PO daily and 20mg PO HS - Cont digoxin, cozaar, Toprol XL, isosorbide mononitrate - Cont spironolactone 12.5mg PO DAILY - Daily weights - Monitor I + O - Maintain head of bed at 30 degrees - OOB advised - PT eval and treat - Cardio consulted, recommendations appreciated Atrial fibrillation, chronic - Continue metoprolol - INR: 2.65 today - Warfarin 3 mg - Monitor INR Chronic kidney disease, Stage III of cardiorenal etiology - Continue to optimize cardiac status - Nephrology consulted, appreciated recommendations - Cardiology consulted, appreciated recommendations LE pain secondary to acute gouty attack, resovled - Continue allopurinol - Prednisone 5 mg, cont to taper Hyperkalemia, resolved - 2g Potassium daily limit, per nephrology - Cont to monitor Watery diarrhea, resolved - Likely 2/2 cochicine - C.diff negative - Continue to monitor Hyperuricemia, resolved - continue allopurinol History of hypothyroidism - Continue synthroid GI/DVT PPx - Protonix - Coumadin Dispo: Placement pending acceptance to [facility] vs [facility]. F/u social work. Patient seen and discussed in detail with Dr. Guerrero. Mayank Jorge, PGY1 <Marvin Guerrero - Last Filed: 09/12/17 16:40> Objective - Vital Signs/Intake and Output Vital Signs (last 24 hours): Temp Pulse Resp BP Pulse Ox 97.8 F 68 18 114/60 100 09/12/17 06:00 09/12/17 06:00 09/12/17 06:00 09/12/17 09:48 09/12/17 11:53 Intake and Output: 09/12/17 09/12/17 06:59 18:59 Intake Total 580 Balance 580 - Medications Medications: Current Medications Acetaminophen (Tylenol 325mg Tab) 650 mg PO Q6H PRN PRN Reason: Pain, Mild (1-3) Last Admin: 09/11/17 08:52 Dose: 650 mg Allopurinol (Zyloprim) 100 mg PO TID [facility] Last Admin: 09/12/17 13:39 Dose: 100 mg Digoxin (Digoxin) 0.125 mg PO Q48H [facility] Last Admin: 09/12/17 13:39 Dose: 0.125 mg Furosemide (Lasix) 20 mg PO HS [facility] Last Admin: 09/11/17 21:09 Dose: 20 mg Furosemide (Lasix) 20 mg PO DAILY [facility] Last Admin: 09/12/17 09:46 Dose: 20 mg Milrinone Lactate/Dextrose (Primacor 20mg/100ml D5w) 100 mls @ 6.96 mls/hr IV .[id number] PRN; Protocol; 0.33 MCG/KG/MIN PRN Reason: TITRATE PER MD ORDER Last Admin: 09/12/17 05:41 Dose: 0.33 mcg/kg/min, 6.96 mls/hr Isosorbide Mononitrate (Imdur Er) 30 mg PO DAILY [facility] Last Admin: 09/12/17 09:48 Dose: 30 mg Levothyroxine Sodium (Synthroid) 112 mcg PO 0600 [facility] Last Admin: 09/12/17 05:23 Dose: 112 mcg Losartan Potassium (Cozaar) 25 mg PO DAILY [facility] Last Admin: 09/12/17 09:48 Dose: 25 mg Magnesium Oxide (Mag-Ox) 400 mg PO DAILY [facility] Last Admin: 09/12/17 09:48 Dose: 400 mg Metoprolol Succinate (Toprol Xl) 25 mg PO BRK [facility] Last Admin: 09/12/17 09:47 Dose: 25 mg Pantoprazole Sodium (Protonix Ec Tab) 40 mg PO ACB [facility] Last Admin: 09/12/17 09:46 Dose: 40 mg Prednisone (Prednisone Tab) 5 mg PO DAILY [facility] Last Admin: 09/12/17 09:47 Dose: 5 mg Spironolactone (Aldactone) 12.5 mg PO DAILY [facility] Last Admin: 09/12/17 09:48 Dose: 12.5 mg Warfarin Sodium (Coumadin) 3 mg PO 1800 [facility] - Labs Labs: 09/12/17 07:20 09/12/17 07:20 PT 31.1 SECONDS (9.4-12.5) H 09/12/17 07:20 INR 2.65 (0.93-1.08) H 09/12/17 07:20 APTT 32.1 Seconds (25.1-36.5) 09/05/17 06:30 Attending/Attestation - Attestation I have personally seen and examined this patient.: Yes I have fully participated in the care of the patient.: Yes I have reviewed all pertinent clinical information, including history, physical exam and plan: Yes Notes (Text): 09/12/17 16:38 Attending note; Patient seen and examined with resident. Patient is a 87 year old female with a history of systolic heart failure with AICD and on milrinone drip, atrial fibrillation, hypothyroidism, and gout, admitted for acute gout attack and CHF exacerbation. Currently with stable cardiac status. Leg edema improved. Currently on lasix, Aldactone, Cozaar, metoprolol, Imdur .Continue IV milrinone. Acute gout; on tapering dose of prednisoneand allopurinol. Mildly elevated white count secondary to acute inflammation/steroid treatment. Blood and urine culture is negative. Chronic kidney disease; creatinine is stable at 1.2. Physical therapy evaluation appreciated. Subacute rehabilitation recommended. Patient is DNI DNR. pending [facility] placement. Case discussed with social media content specialist in detail. Upon discharge the patient will follow-up with PMD .
[2017-09-13] MEDS: Levothyroxine 112 MCG TAB PO SCH (06:18)
[2017-09-13 07:04] LABS: INR 2.7 (0.93-1.08); PROTHROMBIN TIME 31.7 SECONDS (9.4-12.5)
[2017-09-13] MEDS: Metoprolol Succinate 25 mg XL Tab PO SCH (08:46)
[2017-09-13] MEDS: Pantoprazole 40 mg EC Tab PO SCH (08:46)
--- NOTE | 2017-09-13 08:59 | CP.PCM.PN ---
<Rachele Trujillo - Last Filed: 09/13/17 13:07> Subjective - Date & Time of Evaluation Date of Evaluation: 09/13/17 Time of Evaluation: 07:30 - Subjective Subjective: PGY-1 Nephrology Progress Note for Dr. Marcum's service Patient seen and examined at bedside. Patient reports feeling good and offers no complaints. Patient is making good urine output with good appetite. Patient denies shortness of breath, chest pain, N/V/C/D, and dizziness. Objective - Vital Signs/Intake and Output Vital Signs (last 24 hours): Temp Pulse Resp BP Pulse Ox 98.3 F 71 18 116/63 99 09/13/17 06:00 09/13/17 08:46 09/13/17 06:00 09/13/17 08:46 09/13/17 06:00 Intake and Output: 09/13/17 09/13/17 06:59 18:59 Intake Total 183 Balance 183 - Medications Medications: Current Medications Acetaminophen (Tylenol 325mg Tab) 650 mg PO Q6H PRN PRN Reason: Pain, Mild (1-3) Last Admin: 09/11/17 08:52 Dose: 650 mg Allopurinol (Zyloprim) 100 mg PO TID [facility] Last Admin: 09/12/17 17:16 Dose: 100 mg Digoxin (Digoxin) 0.125 mg PO Q48H [facility] Last Admin: 09/12/17 13:39 Dose: 0.125 mg Furosemide (Lasix) 20 mg PO HS [facility] Last Admin: 09/12/17 21:36 Dose: 20 mg Furosemide (Lasix) 20 mg PO DAILY [facility] Last Admin: 09/12/17 09:46 Dose: 20 mg Milrinone Lactate/Dextrose (Primacor 20mg/100ml D5w) 100 mls @ 6.96 mls/hr IV .[id number] PRN; Protocol; 0.33 MCG/KG/MIN PRN Reason: TITRATE PER MD ORDER Last Admin: 09/12/17 21:57 Dose: 0.33 mcg/kg/min, 6.96 mls/hr Isosorbide Mononitrate (Imdur Er) 30 mg PO DAILY [facility] Last Admin: 09/12/17 09:48 Dose: 30 mg Levothyroxine Sodium (Synthroid) 112 mcg PO 0600 [facility] Last Admin: 09/13/17 06:18 Dose: 112 mcg Losartan Potassium (Cozaar) 25 mg PO DAILY [facility] Last Admin: 09/12/17 09:48 Dose: 25 mg Magnesium Oxide (Mag-Ox) 400 mg PO DAILY [facility] Last Admin: 09/12/17 09:48 Dose: 400 mg Metoprolol Succinate (Toprol Xl) 25 mg PO BRK [facility] Last Admin: 09/13/17 08:46 Dose: 25 mg Pantoprazole Sodium (Protonix Ec Tab) 40 mg PO ACB [facility] Last Admin: 09/13/17 08:46 Dose: 40 mg Prednisone (Prednisone Tab) 5 mg PO DAILY [facility] Last Admin: 09/12/17 09:47 Dose: 5 mg Spironolactone (Aldactone) 12.5 mg PO DAILY [facility] Last Admin: 09/12/17 09:48 Dose: 12.5 mg Warfarin Sodium (Coumadin) 3 mg PO 1800 [facility] Last Admin: 09/12/17 17:16 Dose: 3 mg - Labs Labs: 09/12/17 07:20 09/12/17 07:20 PT 31.7 SECONDS (9.4-12.5) H 09/13/17 06:20 INR 2.70 (0.93-1.08) H 09/13/17 06:20 APTT 32.1 Seconds (25.1-36.5) 09/05/17 06:30 - Additional Findings Additional findings: - Additional Findings Additional findings: - Constitutional Appears: Non-toxic, No Acute Distress - Eye Exam Eye Exam: absent: Scleral icterus - Respiratory Exam Respiratory Exam: absent: Respiratory Distress Additional comments: chronic fine rales b/l - Cardiovascular Exam Cardiovascular Exam: RRR, +S1, +S2. absent: Gallop - GI/Abdominal Exam GI & Abdominal Exam: absent: Distended - Extremities Exam Additional comments: minimal lower leg edema; - Neurological Exam Neurological Exam: Alert, Awake - Psychiatric Exam Psychiatric exam: Normal Mood. absent: Agitated - Skin Skin Exam: Warm. absent: Cyanosis Assessment and Plan - Assessment and Plan (Free Text) Assessment: Patient is a 87 year old female with PMH CHF (EF 8%), Atrial Fib, hypothyroidism , and gout admitted for LE pain and acute CHF exacerbation. Plan: (1) Renal insufficiency Assessment & Plan: Stable and relatively mild renal insufficiency of cardiorenal etiology; continue to optimize CHF status per cardio recs; Continue Lasix 20mg daily and 20mg HS; check daily standing weights (target is in low to mid 150's lbs); Status: Chronic (2) HFrEF (heart failure with reduced ejection fraction) Assessment & Plan: Asymptomatic and euvolemic on exam; continue heart failure meds; leg edema has improved significantly Status: Chronic (3) Hyperuricemia Assessment & Plan: Gout flare resolved Continue allopurinol 100 mg tid Continue prednisone taper Target uric acid level < 6.0, titrate dose upward as needed; Status: Chronic (4) Metabolic alkalosis Assessment & Plan: Continue Lasix at 20 bid; Continue Aldactone to counter the alkalosis of loop diuretic Status: Acute Discussed with primary team. Patient is awaiting placement in manager terminal facility. <Otoniel Marcum - Last Filed: 09/14/17 07:44> Objective - Vital Signs/Intake and Output Vital Signs (last 24 hours): Temp Pulse Resp BP Pulse Ox 98.1 F 70 19 115/52 L 98 09/13/17 22:48 09/13/17 22:48 09/13/17 22:48 09/13/17 22:48 09/13/17 22:48 Intake and Output: 09/14/17 09/14/17 06:59 18:59 Intake Total 100 Output Total 250 Balance -150 - Medications Medications: Current Medications Acetaminophen (Tylenol 325mg Tab) 650 mg PO Q6H PRN PRN Reason: Pain, Mild (1-3) Last Admin: 09/11/17 08:52 Dose: 650 mg Allopurinol (Zyloprim) 100 mg PO TID [facility] Last Admin: 09/13/17 18:16 Dose: 100 mg Digoxin (Digoxin) 0.125 mg PO Q48H [facility] Last Admin: 09/12/17 13:39 Dose: 0.125 mg Furosemide (Lasix) 20 mg PO HS [facility] Last Admin: 09/13/17 22:06 Dose: 20 mg Furosemide (Lasix) 20 mg PO DAILY [facility] Last Admin: 09/13/17 12:11 Dose: 20 mg Milrinone Lactate/Dextrose (Primacor 20mg/100ml D5w) 100 mls @ 6.96 mls/hr IV .[id number] PRN; Protocol; 0.33 MCG/KG/MIN PRN Reason: TITRATE PER MD ORDER Last Admin: 09/14/17 01:52 Dose: 0.33 mcg/kg/min, 6.96 mls/hr Isosorbide Mononitrate (Imdur Er) 30 mg PO DAILY [facility] Last Admin: 09/13/17 12:11 Dose: 30 mg Levothyroxine Sodium (Synthroid) 112 mcg PO 0600 [facility] Last Admin: 09/14/17 05:29 Dose: 112 mcg Losartan Potassium (Cozaar) 25 mg PO DAILY [facility] Last Admin: 09/13/17 12:11 Dose: 25 mg Magnesium Oxide (Mag-Ox) 400 mg PO DAILY [facility] Last Admin: 09/13/17 12:10 Dose: 400 mg Metoprolol Succinate (Toprol Xl) 25 mg PO BRK [facility] Last Admin: 09/13/17 08:46 Dose: 25 mg Pantoprazole Sodium (Protonix Ec Tab) 40 mg PO ACB [facility] Last Admin: 09/13/17 08:46 Dose: 40 mg Prednisone (Prednisone Tab) 5 mg PO DAILY [facility] Last Admin: 09/13/17 12:10 Dose: 5 mg Spironolactone (Aldactone) 12.5 mg PO DAILY [facility] Last Admin: 09/13/17 12:11 Dose: 12.5 mg Warfarin Sodium (Coumadin) 3 mg PO 1800 [facility] Last Admin: 09/13/17 18:16 Dose: 3 mg - Labs Labs: 09/12/17 07:20 09/12/17 07:20 PT 31.7 SECONDS (9.4-12.5) H 09/13/17 06:20 INR 2.70 (0.93-1.08) H 09/13/17 06:20 APTT 32.1 Seconds (25.1-36.5) 09/05/17 06:30 Assessment and Plan (1) Renal insufficiency Status: Chronic (2) HFrEF (heart failure with reduced ejection fraction) Status: Chronic (3) Hyperuricemia Status: Chronic (4) Metabolic alkalosis Status: Acute Attending/Attestation - Attestation I have personally seen and examined this patient.: Yes I have fully participated in the care of the patient.: Yes I have reviewed all pertinent clinical information, including history, physical exam and plan: Yes Notes (Text): Patient seen and examined; I agree with the resident's note as above with the following edits/additions: Patient with severe systolic dysfunction, on home milrinone, cardiorenal etiology of renal insufficiency, admitted with CHF exacerbation and gout flare, both of which have resolved; CHF status remains tenuous; currently on low dose toprol XL and losartan, as well lasix 20 mg bid and aldactone 12.5 mg daily; need to assess standing weights daily; if increasing, need to increase am dose of lasix to 40 mg daily; given renal insufficiency, needs bid dosing of loop diuretics and potentially higher doses; aldactone needs to be maintained to offset ensuing metabolic alkalosis (recently controlled);
[2017-09-13] MEDS: Magnesium Oxide 400 mg Tab UD PO SCH (12:10)
[2017-09-13] MEDS: Milrinone 20mg/100ml D5W 100 ML IV PRN (13:07)
--- NOTE | 2017-09-13 18:30 | CP.PCM.PN ---
<Jaswinder Degroot - Last Filed: 09/13/17 18:26> Subjective - Date & Time of Evaluation Date of Evaluation: 09/13/17 Time of Evaluation: 18:26 - Subjective Subjective: Jaswinder Degroot D.O. PGY-1 -- Clinical Scientist -- Medicine Progress Note Patient was seen and examined at bedside this morning. Patient denies any complaints overnight. Patient tolerated her diet and was able to get out of bed to chair. Patient says she had a normal bowel movement this morning, and denies watery stool. Review of systems is otherwise unremarkable for nausea, vomiting, shortness of breath, chest pain, abdominal pain, fever, and/or headaches. Objective - Vital Signs/Intake and Output Vital Signs (last 24 hours): Temp Pulse Resp BP Pulse Ox 98.3 F 70 18 114/52 L 99 09/13/17 06:00 09/13/17 13:07 09/13/17 06:00 09/13/17 13:07 09/13/17 06:00 Intake and Output: 09/13/17 09/13/17 06:59 18:59 Intake Total 183 100 Balance 183 100 - Medications Medications: Current Medications Acetaminophen (Tylenol 325mg Tab) 650 mg PO Q6H PRN PRN Reason: Pain, Mild (1-3) Last Admin: 09/11/17 08:52 Dose: 650 mg Allopurinol (Zyloprim) 100 mg PO TID [facility] Last Admin: 09/13/17 18:16 Dose: 100 mg Digoxin (Digoxin) 0.125 mg PO Q48H [facility] Last Admin: 09/12/17 13:39 Dose: 0.125 mg Furosemide (Lasix) 20 mg PO HS [facility] Last Admin: 09/12/17 21:36 Dose: 20 mg Furosemide (Lasix) 20 mg PO DAILY [facility] Last Admin: 09/13/17 12:11 Dose: 20 mg Milrinone Lactate/Dextrose (Primacor 20mg/100ml D5w) 100 mls @ 6.96 mls/hr IV .[id number] PRN; Protocol; 0.33 MCG/KG/MIN PRN Reason: TITRATE PER MD ORDER Last Admin: 09/13/17 13:07 Dose: 0.33 mcg/kg/min, 6.96 mls/hr Isosorbide Mononitrate (Imdur Er) 30 mg PO DAILY [facility] Last Admin: 09/13/17 12:11 Dose: 30 mg Levothyroxine Sodium (Synthroid) 112 mcg PO 0600 [facility] Last Admin: 09/13/17 06:18 Dose: 112 mcg Losartan Potassium (Cozaar) 25 mg PO DAILY [facility] Last Admin: 09/13/17 12:11 Dose: 25 mg Magnesium Oxide (Mag-Ox) 400 mg PO DAILY [facility] Last Admin: 09/13/17 12:10 Dose: 400 mg Metoprolol Succinate (Toprol Xl) 25 mg PO BRK [facility] Last Admin: 09/13/17 08:46 Dose: 25 mg Pantoprazole Sodium (Protonix Ec Tab) 40 mg PO ACB [facility] Last Admin: 09/13/17 08:46 Dose: 40 mg Prednisone (Prednisone Tab) 5 mg PO DAILY [facility] Last Admin: 09/13/17 12:10 Dose: 5 mg Spironolactone (Aldactone) 12.5 mg PO DAILY [facility] Last Admin: 09/13/17 12:11 Dose: 12.5 mg Warfarin Sodium (Coumadin) 3 mg PO 1800 [facility] Last Admin: 09/13/17 18:16 Dose: 3 mg - Labs Labs: 09/12/17 07:20 09/12/17 07:20 PT 31.7 SECONDS (9.4-12.5) H 09/13/17 06:20 INR 2.70 (0.93-1.08) H 09/13/17 06:20 APTT 32.1 Seconds (25.1-36.5) 09/05/17 06:30 - Constitutional Appears: Well, Non-toxic, No Acute Distress - Head Exam Head Exam: ATRAUMATIC, NORMAL INSPECTION, NORMOCEPHALIC - Eye Exam Eye Exam: EOMI, Normal appearance. absent: Conjunctival injection, Scleral icterus - ENT Exam ENT Exam: Mucous Membranes Moist - Neck Exam Neck Exam: Full ROM, Normal Inspection - Respiratory Exam Respiratory Exam: NORMAL BREATHING PATTERN. absent: Accessory Muscle Use, Decreased Breath Sounds, Clear to Ausculation Bilateral (crackles appreciated in lower lung kraus bilaterally), Prolonged Expiratory Phase, Rales, Wheezes, Respiratory Distress - Cardiovascular Exam Cardiovascular Exam: Gallop (S3 gallop appreciated on auscultation ), REGULAR RHYTHM. absent: Bradycardia, Tachycardia, Diastolic murmur, JVD, Rubs, Murmur - GI/Abdominal Exam GI & Abdominal Exam: Soft, Normal Bowel Sounds. absent: Bruit, Guarding, Rigid , Tenderness - Extremities Exam Extremities Exam: Normal Inspection. absent: Pedal Edema (wrinkling of bilateral lower extremities appreciated ), Tenderness - Back Exam Back Exam: Full ROM, NORMAL INSPECTION. absent: paraspinal tenderness, rash noted - Neurological Exam Neurological Exam: Alert, Awake, CN II-XII Intact, Normal Gait, Oriented x3 - Psychiatric Exam Psychiatric exam: Normal Affect, Normal Mood - Skin Skin Exam: Dry, Intact, Normal Color, Warm Assessment and Plan - Assessment and Plan (Free Text) Assessment: 87 [id number] with a past medical history of systolic congestive heart failure (CHF) with reduced ejection fraction (EF) of 8% status post AICD placement and on milrinone drip, atrial fibrillation, hypothyroidism, and gout, admitted for lower extremity (LE) pain likely secondary to acute gout attack and acute on chronic CHF exacerbation. Chronic systolic CHF (EF 8%), Acute exacerbation resolved Continue Milrinone Continue lasix 20mg PO daily and 20mg PO HS Continue digoxin, cozaar, Toprol XL, isosorbide mononitrate Continue spironolactone 12.5mg PO DAILY Monitor daily weights Monitor I + O Maintain head of bed at 30 degrees OOB PT eval and treat Cardiology consulted, recommendations appreciated Atrial fibrillation, chronic Continue metoprolol INR: 2.7 today Warfarin 4 mg Chronic kidney disease, Stage III of cardiorenal etiology Continue to optimize cardiac status Nephrology consulted, appreciated recommendations Cardiology consulted, appreciated recommendations LE pain secondary to acute gouty attack, resolved Continue allopurinol Prednisone 5 mg, continue to taper Hyperkalemia, resolved 2g Potassium daily limit, per nephrology Watery diarrhea, resolved Likely 2/2 cochicine C.diff negative Continue to monitor Hyperuricemia, resolved Continue allopurinol History of hypothyroidism Continue synthroid GI/DVT PPx Protonix Coumadin Dispo: Placement pending acceptance to [facility] vs [facility]. F/u social work. Patient seen and discussed in detail with Attending Physician, Dr. Cesar Degroot, RemyO. PGY1 <Marvin Guerrero - Last Filed: 09/14/17 15:14> Objective - Vital Signs/Intake and Output Vital Signs (last 24 hours): Temp Pulse Resp BP Pulse Ox 98.0 F 70 20 109/52 L 97 09/14/17 06:00 09/14/17 10:35 09/14/17 06:00 09/14/17 10:35 09/14/17 06:00 Intake and Output: 09/14/17 09/14/17 06:59 18:59 Intake Total 100 Output Total 250 Balance -150 - Medications Medications: Current Medications Acetaminophen (Tylenol 325mg Tab) 650 mg PO Q6H PRN PRN Reason: Pain, Mild (1-3) Last Admin: 09/11/17 08:52 Dose: 650 mg Allopurinol (Zyloprim) 100 mg PO TID [facility] Last Admin: 09/14/17 14:53 Dose: 100 mg Digoxin (Digoxin) 0.125 mg PO Q48H [facility] Last Admin: 09/14/17 14:53 Dose: 0.125 mg Furosemide (Lasix) 20 mg PO HS [facility] Last Admin: 09/13/17 22:06 Dose: 20 mg Furosemide (Lasix) 40 mg PO DAILY [facility] Milrinone Lactate/Dextrose (Primacor 20mg/100ml D5w) 100 mls @ 6.96 mls/hr IV .[id number] PRN; Protocol; 0.33 MCG/KG/MIN PRN Reason: TITRATE PER MD ORDER Last Admin: 09/14/17 01:52 Dose: 0.33 mcg/kg/min, 6.96 mls/hr Isosorbide Mononitrate (Imdur Er) 30 mg PO DAILY [facility] Last Admin: 09/14/17 10:34 Dose: 30 mg Levothyroxine Sodium (Synthroid) 112 mcg PO 0600 [facility] Last Admin: 09/14/17 05:29 Dose: 112 mcg Losartan Potassium (Cozaar) 25 mg PO DAILY [facility] Last Admin: 09/14/17 10:35 Dose: Not Given Magnesium Oxide (Mag-Ox) 400 mg PO DAILY [facility] Last Admin: 09/14/17 10:31 Dose: 400 mg Metoprolol Succinate (Toprol Xl) 25 mg PO BRK [facility] Last Admin: 09/14/17 08:18 Dose: 25 mg Pantoprazole Sodium (Protonix Ec Tab) 40 mg PO ACB [facility] Last Admin: 09/14/17 08:18 Dose: 40 mg Prednisone (Prednisone Tab) 5 mg PO DAILY [facility] Last Admin: 09/14/17 10:31 Dose: 5 mg Spironolactone (Aldactone) 12.5 mg PO BID [facility] Warfarin Sodium (Coumadin) 3 mg PO 1800 [facility] Last Admin: 09/13/17 18:16 Dose: 3 mg - Labs Labs: 09/12/17 07:20 09/12/17 07:20 PT 31.7 SECONDS (9.4-12.5) H 09/13/17 06:20 INR 2.70 (0.93-1.08) H 09/13/17 06:20 APTT 32.1 Seconds (25.1-36.5) 09/05/17 06:30 Attending/Attestation - Attestation I have personally seen and examined this patient.: Yes I have fully participated in the care of the patient.: Yes I have reviewed all pertinent clinical information, including history, physical exam and plan: Yes Notes (Text): 09/14/17 15:13 Attending note; Patient seen and examined with resident. Patient is a 87 year old female with a history of systolic heart failure with AICD and on milrinone drip, atrial fibrillation, hypothyroidism, and gout, admitted for acute gout attack and CHF exacerbation. Currently with stable cardiac status. Leg edema improved. on lasix, Aldactone, Cozaar, metoprolol, Imdur .Continue IV milrinone. INR is therapeutic. Acute gout; on tapering dose of prednisone and allopurinol. Chronic kidney disease; creatinine is stable at 1.2. Physical therapy evaluation appreciated. Subacute rehabilitation recommended. Patient is [facility]NI DNR. pending [facility] placement. Case discussed with social professionals in detail. Upon discharge the patient will follow-up with PMD . 09/14/17 15:13 09/14/17 15:14
[2017-09-14] MEDS: Milrinone 20mg/100ml D5W 100 ML IV PRN ×2 (01:52→16:32)
[2017-09-14] MEDS: Levothyroxine 112 MCG TAB PO SCH (05:29)
--- NOTE | 2017-09-14 07:50 | PN ---
DATE: 09/14/2017 SUBJECTIVE: The patient is seen sitting in chair on 5R. She is currently comfortable. She awaits placement in either rehabilitation center or long-term care facility. She denies any dyspnea or joint pain recently. CURRENT MEDICATIONS: Include IV milrinone, Aldactone 12.5 mg daily, Coumadin, Cozaar 25 mg daily, digoxin 0.125 mg every other day, Imdur 30 mg daily, Lasix 20 mg b.i.d., prednisone 5 mg daily, Protonix 40 mg daily, Synthroid 112 mcg daily, Toprol-XL 25 mg daily and Zyloprim. OBJECTIVE: GENERAL: She is a very elderly woman who appears comfortable at rest. VITAL SIGNS: Her blood pressure is 116/52 with a pulse of 70, respirations are 14. She is afebrile. HEENT: No JVD. CHEST: A few scattered rhonchi. No rales heard. HEART: PMI displaced laterally with soft tones noted. ABDOMEN: Soft, nontender. Normoactive bowel sounds. EXTREMITIES: No edema. DIAGNOSTIC DATA: INR is 2.7. IMPRESSION: 1. Chronic severe systolic congestive heart failure, appears fairly well compensated at present. 2. Severe congestive cardiomyopathy. 3. Severe mitral and tricuspid regurgitation. 4. Chronic atrial fibrillation. 5. History of ventricular tachycardia, status post implantable cardioverter-defibrillator implant. 6. Recurrent gout. RECOMMENDATIONS: Cardiac medications should be continued for now. She is currently receiving a Lasix dose at bedtime, which may worsen nocturia symptoms. This should be switched to an earlier dosing. From a cardiac standpoint, she is stable for transfer once accepted at a facility. We will follow along as needed. Dino Thompson MD MTDD
[2017-09-14] MEDS: Pantoprazole 40 mg EC Tab PO SCH (08:18)
[2017-09-14] MEDS: Metoprolol Succinate 25 mg XL Tab PO SCH (08:18)
--- NOTE | 2017-09-14 09:44 | CP.PCM.PN ---
Subjective - Date & Time of Evaluation Date of Evaluation: 09/14/17 Time of Evaluation: 07:30 - Subjective Subjective: PGY-1 Nephrology Progress Note for Dr. Marcum's service Patient seen and examined at bedside. Patient reports no acute complaints and feeling well. Patient was seated in chair (ambulated without assistance) and having breakfast. Patient reports good appetite. Patient reports no diarrhea admitting to a normal bowel movement yesterday. Patient admits to good urine output with no urinary symptoms. Patient denies chest pain, shortness of breath , n/v/c/d. Objective - Vital Signs/Intake and Output Vital Signs (last 24 hours): Temp Pulse Resp BP Pulse Ox 98.0 F 70 20 117/64 97 09/14/17 06:00 09/14/17 06:00 09/14/17 06:00 09/14/17 08:18 09/14/17 06:00 Intake and Output: 09/14/17 09/14/17 06:59 18:59 Intake Total 100 Output Total 250 Balance -150 - Medications Medications: Current Medications Acetaminophen (Tylenol 325mg Tab) 650 mg PO Q6H PRN PRN Reason: Pain, Mild (1-3) Last Admin: 09/11/17 08:52 Dose: 650 mg Allopurinol (Zyloprim) 100 mg PO TID [facility] Last Admin: 09/13/17 18:16 Dose: 100 mg Digoxin (Digoxin) 0.125 mg PO Q48H [facility] Last Admin: 09/12/17 13:39 Dose: 0.125 mg Furosemide (Lasix) 20 mg PO HS [facility] Last Admin: 09/13/17 22:06 Dose: 20 mg Furosemide (Lasix) 20 mg PO DAILY [facility] Last Admin: 09/13/17 12:11 Dose: 20 mg Milrinone Lactate/Dextrose (Primacor 20mg/100ml D5w) 100 mls @ 6.96 mls/hr IV .[id number] PRN; Protocol; 0.33 MCG/KG/MIN PRN Reason: TITRATE PER MD ORDER Last Admin: 09/14/17 01:52 Dose: 0.33 mcg/kg/min, 6.96 mls/hr Isosorbide Mononitrate (Imdur Er) 30 mg PO DAILY [facility] Last Admin: 09/13/17 12:11 Dose: 30 mg Levothyroxine Sodium (Synthroid) 112 mcg PO 0600 [facility] Last Admin: 09/14/17 05:29 Dose: 112 mcg Losartan Potassium (Cozaar) 25 mg PO DAILY [facility] Last Admin: 09/13/17 12:11 Dose: 25 mg Magnesium Oxide (Mag-Ox) 400 mg PO DAILY [facility] Last Admin: 09/13/17 12:10 Dose: 400 mg Metoprolol Succinate (Toprol Xl) 25 mg PO BRK [facility] Last Admin: 09/14/17 08:18 Dose: 25 mg Pantoprazole Sodium (Protonix Ec Tab) 40 mg PO ACB [facility] Last Admin: 09/14/17 08:18 Dose: 40 mg Prednisone (Prednisone Tab) 5 mg PO DAILY [facility] Last Admin: 09/13/17 12:10 Dose: 5 mg Spironolactone (Aldactone) 12.5 mg PO DAILY [facility] Last Admin: 09/13/17 12:11 Dose: 12.5 mg Warfarin Sodium (Coumadin) 3 mg PO 1800 [facility] Last Admin: 09/13/17 18:16 Dose: 3 mg - Labs Labs: 09/12/17 07:20 09/12/17 07:20 PT 31.7 SECONDS (9.4-12.5) H 09/13/17 06:20 INR 2.70 (0.93-1.08) H 09/13/17 06:20 APTT 32.1 Seconds (25.1-36.5) 09/05/17 06:30 - Additional Findings Additional findings: - Constitutional Appears: Non-toxic, No Acute Distress - Eye Exam Eye Exam: absent: Scleral icterus - Respiratory Exam Respiratory Exam: absent: Respiratory Distress Additional comments: chronic fine rales b/l - Cardiovascular Exam Cardiovascular Exam: RRR, +S1, +S2. absent: Gallop - GI/Abdominal Exam GI & Abdominal Exam: absent: Distended - Extremities Exam Additional comments: minimal lower leg edema; - Neurological Exam Neurological Exam: Alert, Awake - Psychiatric Exam Psychiatric exam: Normal Mood. absent: Agitated - Skin Skin Exam: Warm. absent: Cyanosis Assessment and Plan - Assessment and Plan (Free Text) Assessment: Patient is a 87 year old female with PMH CHF (EF 8%), Atrial Fib, hypothyroidism , and gout admitted for gout flare and acute CHF exacerbation which has now resolved. Patient awaiting placement in snf facility. Plan: (1) Renal insufficiency Assessment & Plan: Stable and relatively mild renal insufficiency of cardiorenal etiology continue to optimize CHF status per cardio recs Continue Lasix 20mg daily and 20mg HS Check daily standing weights Standing weight today was 160.8 Increased AM dose of Lasix to 40mg Status: Chronic (2) HFrEF (heart failure with reduced ejection fraction) Assessment & Plan: Asymptomatic and euvolemic on exam Continue heart failure meds leg edema has improved significantly Status: Chronic (3) Hyperuricemia Assessment & Plan: Gout flare resolved Continue allopurinol 100 mg tid Continue prednisone taper Target uric acid level < 6.0, titrate dose upward as needed; Status: Chronic (4) Metabolic alkalosis Assessment & Plan: Continue Lasix 40 at AM and 20 HS; Increased Aldactone to bid to counter the alkalosis of increased loop diuretic and improve diuresis Status: Acute Discussed with primary team. Patient is awaiting placement in snf facility.
[2017-09-14] MEDS: Magnesium Oxide 400 mg Tab UD PO SCH (10:31)
[2017-09-14] MEDS: Digoxin 125 mcg (0.125 mg) Tab PO SCH (14:53)
--- NOTE | 2017-09-14 20:01 | CP.PCM.PN ---
<Jaswinder Degroot - Last Filed: 09/14/17 20:12> Subjective - Date & Time of Evaluation Date of Evaluation: 09/14/17 Time of Evaluation: 20:01 - Subjective Subjective: Patient was seen and examined at bedside this morning. Patient says she had a normal bowel movement this morning, and denies watery stool. Patient has no complaints over night. Patient tolerated her diet and was able to get out of bed to chair. Review of systems is otherwise unremarkable for nausea, vomiting, shortness of breath, chest pain, abdominal pain, fever, and/or headaches. Objective - Vital Signs/Intake and Output Vital Signs (last 24 hours): Temp Pulse Resp BP Pulse Ox 97.8 F 70 97 H 109/54 L 97 09/14/17 14:00 09/14/17 16:32 09/14/17 14:00 09/14/17 16:32 09/14/17 06:00 Intake and Output: 09/14/17 09/15/17 18:59 06:59 Intake Total 100 Balance 100 - Medications Medications: Current Medications Acetaminophen (Tylenol 325mg Tab) 650 mg PO Q6H PRN PRN Reason: Pain, Mild (1-3) Last Admin: 09/11/17 08:52 Dose: 650 mg Allopurinol (Zyloprim) 100 mg PO TID [facility] Last Admin: 09/14/17 17:29 Dose: 100 mg Digoxin (Digoxin) 0.125 mg PO Q48H [facility] Last Admin: 09/14/17 14:53 Dose: 0.125 mg Furosemide (Lasix) 20 mg PO HS [facility] Last Admin: 09/13/17 22:06 Dose: 20 mg Furosemide (Lasix) 40 mg PO DAILY [facility] Milrinone Lactate/Dextrose (Primacor 20mg/100ml D5w) 100 mls @ 6.96 mls/hr IV .[id number] PRN; Protocol; 0.33 MCG/KG/MIN PRN Reason: TITRATE PER MD ORDER Last Admin: 09/14/17 16:32 Dose: 0.33 mcg/kg/min, 6.96 mls/hr Isosorbide Mononitrate (Imdur Er) 30 mg PO DAILY [facility] Last Admin: 09/14/17 10:34 Dose: 30 mg Levothyroxine Sodium (Synthroid) 112 mcg PO 0600 [facility] Last Admin: 09/14/17 05:29 Dose: 112 mcg Losartan Potassium (Cozaar) 25 mg PO DAILY [facility] Last Admin: 09/14/17 10:35 Dose: Not Given Magnesium Oxide (Mag-Ox) 400 mg PO DAILY [facility] Last Admin: 09/14/17 10:31 Dose: 400 mg Metoprolol Succinate (Toprol Xl) 25 mg PO BRK [facility] Last Admin: 09/14/17 08:18 Dose: 25 mg Pantoprazole Sodium (Protonix Ec Tab) 40 mg PO ACB [facility] Last Admin: 09/14/17 08:18 Dose: 40 mg Prednisone (Prednisone Tab) 5 mg PO DAILY [facility] Last Admin: 09/14/17 10:31 Dose: 5 mg Spironolactone (Aldactone) 12.5 mg PO BID [facility] Last Admin: 09/14/17 17:29 Dose: 12.5 mg Warfarin Sodium (Coumadin) 3 mg PO 1800 [facility] Last Admin: 09/14/17 17:29 Dose: 3 mg - Labs Labs: 09/12/17 07:20 09/12/17 07:20 PT 31.7 SECONDS (9.4-12.5) H 09/13/17 06:20 INR 2.70 (0.93-1.08) H 09/13/17 06:20 APTT 32.1 Seconds (25.1-36.5) 09/05/17 06:30 - Constitutional Appears: Well, Non-toxic, No Acute Distress - Head Exam Head Exam: ATRAUMATIC, NORMAL INSPECTION, NORMOCEPHALIC - Eye Exam Eye Exam: Normal appearance Pupil Exam: NORMAL ACCOMODATION - ENT Exam ENT Exam: Mucous Membranes Moist, Normal Exam - Neck Exam Neck Exam: Normal Inspection - Respiratory Exam Respiratory Exam: NORMAL BREATHING PATTERN - Cardiovascular Exam Cardiovascular Exam: Gallop (S3), REGULAR RHYTHM - GI/Abdominal Exam GI & Abdominal Exam: Normal Bowel Sounds - Extremities Exam Extremities Exam: Full ROM, Normal Inspection. absent: Joint Swelling, Pedal Edema, Tenderness - Back Exam Back Exam: NORMAL INSPECTION - Neurological Exam Neurological Exam: Alert, Awake, CN II-XII Intact, Normal Gait - Psychiatric Exam Psychiatric exam: Normal Affect, Normal Mood - Skin Skin Exam: Dry, Intact, Normal Color, Warm Assessment and Plan - Assessment and Plan (Free Text) Assessment: 87 [id number] with a past medical history of systolic congestive heart failure (CHF) with reduced ejection fraction (EF) of 8% status post AICD placement and on milrinone drip, atrial fibrillation, hypothyroidism, and gout, admitted for lower extremity (LE) pain likely secondary to acute gout attack and acute on chronic CHF exacerbation. Chronic systolic CHF (EF 8%), Acute exacerbation resolved Continue Milrinone Continue lasix 20mg PO daily and 20mg PO HS Continue digoxin, cozaar, Toprol XL, isosorbide mononitrate Continue spironolactone 12.5mg PO DAILY Monitor daily weights Monitor I + O Maintain head of bed at 30 degrees OOB PT eval and treat Cardiology consulted, recommendations appreciated Atrial fibrillation, chronic Continue metoprolol Warfarin 4 mg Chronic kidney disease, Stage III of cardiorenal etiology Continue to optimize cardiac status Nephrology consulted, appreciated recommendations Cardiology consulted, appreciated recommendations LE pain secondary to acute gouty attack, resolved Continue allopurinol Prednisone 5 mg, continue to taper Hyperkalemia, resolved 2g Potassium daily limit, per nephrology Watery diarrhea, resolved Likely 2/2 cochicine C.diff negative Continue to monitor Hyperuricemia, resolved Continue allopurinol History of hypothyroidism Continue synthroid GI/DVT PPx Protonix Coumadin Dispo: Placement pending acceptance to [facility] vs [facility]. F/u social work. Patient seen and discussed in detail with Attending Physician, Dr. Cesar Degroot, D.Erika. PGY1 <Marvin Guerrero - Last Filed: 09/15/17 16:24> Objective - Vital Signs/Intake and Output Vital Signs (last 24 hours): Temp Pulse Resp BP Pulse Ox 98.3 F 75 18 128/59 L 97 09/15/17 06:00 09/15/17 09:01 09/15/17 10:00 09/15/17 09:02 09/15/17 06:00 Intake and Output: 09/15/17 09/15/17 06:59 18:59 Intake Total 960 Balance 960 - Medications Medications: Current Medications Acetaminophen (Tylenol 325mg Tab) 650 mg PO Q6H PRN PRN Reason: Pain, Mild (1-3) Last Admin: 09/11/17 08:52 Dose: 650 mg Allopurinol (Zyloprim) 100 mg PO TID [facility] Last Admin: 09/15/17 15:26 Dose: 100 mg Colchicine (Colocrys) 0.6 mg PO DAILY PRN PRN Reason: PAIN DUE TO GOUT Digoxin (Digoxin) 0.125 mg PO Q48H [facility] Last Admin: 09/14/17 14:53 Dose: 0.125 mg Furosemide (Lasix) 20 mg PO HS [facility] Last Admin: 09/14/17 21:41 Dose: 20 mg Furosemide (Lasix) 40 mg PO DAILY [facility] Last Admin: 09/15/17 09:02 Dose: 40 mg Milrinone Lactate/Dextrose (Primacor 20mg/100ml D5w) 100 mls @ 6.96 mls/hr IV .[id number] PRN; Protocol; 0.33 MCG/KG/MIN PRN Reason: TITRATE PER MD ORDER Last Admin: 09/15/17 06:59 Dose: 0.33 mcg/kg/min, 6.96 mls/hr Isosorbide Mononitrate (Imdur Er) 30 mg PO DAILY [facility] Last Admin: 09/15/17 09:01 Dose: 30 mg Levothyroxine Sodium (Synthroid) 112 mcg PO 0600 [facility] Last Admin: 09/15/17 05:51 Dose: 112 mcg Losartan Potassium (Cozaar) 25 mg PO DAILY [facility] Last Admin: 09/15/17 09:01 Dose: 25 mg Magnesium Oxide (Mag-Ox) 400 mg PO DAILY [facility] Last Admin: 09/15/17 09:01 Dose: 400 mg Metoprolol Succinate (Toprol Xl) 25 mg PO BRK [facility] Last Admin: 09/15/17 08:39 Dose: 25 mg Pantoprazole Sodium (Protonix Ec Tab) 40 mg PO ACB [facility] Last Admin: 09/15/17 08:39 Dose: 40 mg Prednisone (Prednisone Tab) 5 mg PO DAILY [facility] Last Admin: 09/15/17 09:01 Dose: 5 mg Spironolactone (Aldactone) 12.5 mg PO BID [facility] Last Admin: 09/15/17 09:02 Dose: 12.5 mg Warfarin Sodium (Coumadin) 3 mg PO 1800 [facility] Last Admin: 09/14/17 17:29 Dose: 3 mg - Labs Labs: 09/12/17 07:20 09/12/17 07:20 PT 31.7 SECONDS (9.4-12.5) H 09/13/17 06:20 INR 2.70 (0.93-1.08) H 09/13/17 06:20 APTT 32.1 Seconds (25.1-36.5) 09/05/17 06:30 Attending/Attestation - Attestation I have personally seen and examined this patient.: Yes I have fully participated in the care of the patient.: Yes I have reviewed all pertinent clinical information, including history, physical exam and plan: Yes Notes (Text): 09/15/17 16:23 Attending note; Patient seen and examined with resident. Patient is a 87 year old female with a history of systolic heart failure with AICD and on milrinone drip, atrial fibrillation, hypothyroidism, and gout, admitted for acute gout attack and CHF exacerbation. Currently with stable cardiac status. Leg edema improved. on lasix, Aldactone, Cozaar, metoprolol, Imdur .Continue IV milrinone. INR is therapeutic. Acute gout; on tapering dose of prednisone and allopurinol. Chronic kidney disease; creatinine is stable at 1.2. Physical therapy evaluation appreciated. Subacute rehabilitation recommended. Patient is DNI DNR. pending [facility] placement. Case discussed with nursing home social worker in detail. Upon discharge the patient will follow-up with PMD .
[2017-09-15] MEDS: Levothyroxine 112 MCG TAB PO SCH (05:51)
--- NOTE | 2017-09-15 06:37 | CP.PCM.PN ---
<Jaswinder Degroot - Last Filed: 09/15/17 20:45> Subjective - Date & Time of Evaluation Date of Evaluation: 09/15/17 Time of Evaluation: 06:37 - Subjective Subjective: Jaswinder Degroot D.O. PGY-1 -- [employer] -- Medicine Progress Note Patient was seen and evaluated at bedside this morning. Tolerating diet well and had bowel movement that was non-watery this morning. Patient says she was able to get out of bed to chair with assistance the day prior with PT. Ms. Barlow has no complaints. Denies shortness of breath, chest pain, headache, dizziness, abdominal pain and/or nausea. Objective - Vital Signs/Intake and Output Vital Signs (last 24 hours): Temp Pulse Resp BP Pulse Ox 98.2 F 70 18 137/63 99 09/14/17 22:00 09/14/17 22:00 09/14/17 22:00 09/14/17 22:00 09/14/17 22:00 Intake and Output: 09/14/17 09/15/17 18:59 06:59 Intake Total 100 860 Balance 100 860 - Medications Medications: Current Medications Acetaminophen (Tylenol 325mg Tab) 650 mg PO Q6H PRN PRN Reason: Pain, Mild (1-3) Last Admin: 09/11/17 08:52 Dose: 650 mg Allopurinol (Zyloprim) 100 mg PO TID [facility] Last Admin: 09/14/17 17:29 Dose: 100 mg Digoxin (Digoxin) 0.125 mg PO Q48H [facility] Last Admin: 09/14/17 14:53 Dose: 0.125 mg Furosemide (Lasix) 20 mg PO HS [facility] Last Admin: 09/14/17 21:41 Dose: 20 mg Furosemide (Lasix) 40 mg PO DAILY [facility] Milrinone Lactate/Dextrose (Primacor 20mg/100ml D5w) 100 mls @ 6.96 mls/hr IV .[id number] PRN; Protocol; 0.33 MCG/KG/MIN PRN Reason: TITRATE PER MD ORDER Last Admin: 09/14/17 16:32 Dose: 0.33 mcg/kg/min, 6.96 mls/hr Isosorbide Mononitrate (Imdur Er) 30 mg PO DAILY [facility] Last Admin: 09/14/17 10:34 Dose: 30 mg Levothyroxine Sodium (Synthroid) 112 mcg PO 0600 [facility] Last Admin: 09/15/17 05:51 Dose: 112 mcg Losartan Potassium (Cozaar) 25 mg PO DAILY [facility] Last Admin: 09/14/17 10:35 Dose: Not Given Magnesium Oxide (Mag-Ox) 400 mg PO DAILY [facility] Last Admin: 09/14/17 10:31 Dose: 400 mg Metoprolol Succinate (Toprol Xl) 25 mg PO BRK [facility] Last Admin: 09/14/17 08:18 Dose: 25 mg Pantoprazole Sodium (Protonix Ec Tab) 40 mg PO ACB [facility] Last Admin: 09/14/17 08:18 Dose: 40 mg Prednisone (Prednisone Tab) 5 mg PO DAILY [facility] Last Admin: 09/14/17 10:31 Dose: 5 mg Spironolactone (Aldactone) 12.5 mg PO BID [facility] Last Admin: 09/14/17 17:29 Dose: 12.5 mg Warfarin Sodium (Coumadin) 3 mg PO 1800 [facility] Last Admin: 09/14/17 17:29 Dose: 3 mg - Labs Labs: 09/12/17 07:20 09/12/17 07:20 PT 31.7 SECONDS (9.4-12.5) H 09/13/17 06:20 INR 2.70 (0.93-1.08) H 09/13/17 06:20 APTT 32.1 Seconds (25.1-36.5) 09/05/17 06:30 - Constitutional Appears: Well, Non-toxic, No Acute Distress - Head Exam Head Exam: ATRAUMATIC, NORMAL INSPECTION, NORMOCEPHALIC - Eye Exam Eye Exam: Normal appearance. absent: Conjunctival injection, Scleral icterus - ENT Exam ENT Exam: Mucous Membranes Moist, Normal Exam - Neck Exam Neck Exam: Full ROM, Normal Inspection - Respiratory Exam Respiratory Exam: Clear to Ausculation Bilateral, NORMAL BREATHING PATTERN. absent: Chest Wall Tenderness, Decreased Breath Sounds, Rales, Rhonchi, Wheezes , Respiratory Distress, Stridor - Cardiovascular Exam Cardiovascular Exam: Gallop, REGULAR RHYTHM. absent: Rubs, Murmur Additional comments: 75 beats per minute - GI/Abdominal Exam GI & Abdominal Exam: Soft, Normal Bowel Sounds. absent: Tenderness - Extremities Exam Extremities Exam: Normal Inspection, Pedal Edema (trace edema in bilateral lower extremities ), Tenderness - Back Exam Back Exam: NORMAL INSPECTION. absent: paraspinal tenderness - Neurological Exam Neurological Exam: Alert, Awake, CN II-XII Intact, Oriented x3 - Psychiatric Exam Psychiatric exam: Normal Affect, Normal Mood - Skin Skin Exam: Dry, Intact, Normal Color, Warm Assessment and Plan - Assessment and Plan (Free Text) Assessment: 87 [id number] with a past medical history of systolic congestive heart failure (CHF) with reduced ejection fraction (EF) of 8% status post AICD placement and on milrinone drip, atrial fibrillation, hypothyroidism, and gout, admitted for lower extremity (LE) pain likely secondary to acute gout attack and acute on chronic CHF exacerbation. LE pain secondary to acute gouty attack, resolved Colchicine 0.6mg PO Daily PRN Continue allopurinol Prednisone 5 mg, continue to taper Chronic systolic CHF (EF 8%), Acute exacerbation resolved Continue with same medical therapy Monitor daily weights Monitor I + O Maintain head of bed at 30 degrees OOB Consulted PT for eval and treat Cardiology and nephrology consulted on case, recommendations appreciated Atrial fibrillation, chronic Continue metoprolol, warfarin Chronic kidney disease, Stage III of cardiorenal etiology Continue to optimize cardiac status Nephrology and Cardiology consulted on case, recommendations appreciated Hyperkalemia, resolved 2g Potassium daily limit, per nephrology Watery diarrhea, resolved Likely 2/2 cochicine C.diff negative Continue to monitor Hyperuricemia, resolved Continue allopurinol History of hypothyroidism Continue synthroid GI/DVT PPx Protonix Coumadin Dispo: Placement pending acceptance to [facility] vs [facility]. F/u PT recommendations. F/u social work. Patient seen and case discussed in detail with Attending Physician, Dr. Cesar Degroot D.O. PGY1 Lowe extremity pain---- - Start colchicine 0.6 PO Daily PRN Patient seen and case discussed in detail with Attending Physician, Dr. Cesar Degroot D.O. PGY1 <Marvin Guerrero - Last Filed: 09/16/17 14:13> Objective - Vital Signs/Intake and Output Vital Signs (last 24 hours): Temp Pulse Resp BP Pulse Ox 98.7 F 69 20 122/51 L 96 09/16/17 06:00 09/16/17 12:31 09/16/17 10:00 09/16/17 12:31 09/16/17 06:00 Intake and Output: 09/16/17 09/16/17 06:59 18:59 Intake Total 820 100 Balance 820 100 - Medications Medications: Current Medications Acetaminophen (Tylenol 325mg Tab) 650 mg PO Q6H PRN PRN Reason: Pain, Mild (1-3) Last Admin: 09/11/17 08:52 Dose: 650 mg Allopurinol (Zyloprim) 100 mg PO TID [facility] Last Admin: 09/16/17 10:25 Dose: 100 mg Colchicine (Colocrys) 0.6 mg PO DAILY [facility] Digoxin (Digoxin) 0.125 mg PO Q48H [facility] Last Admin: 09/14/17 14:53 Dose: 0.125 mg Furosemide (Lasix) 20 mg PO HS [facility] Last Admin: 09/15/17 21:23 Dose: 20 mg Furosemide (Lasix) 40 mg PO DAILY [facility] Last Admin: 09/16/17 10:25 Dose: 40 mg Milrinone Lactate/Dextrose (Primacor 20mg/100ml D5w) 100 mls @ 6.96 mls/hr IV .[id number] PRN; Protocol; 0.33 MCG/KG/MIN PRN Reason: TITRATE PER MD ORDER Last Admin: 09/16/17 12:31 Dose: 0.33 mcg/kg/min, 6.96 mls/hr Isosorbide Mononitrate (Imdur Er) 30 mg PO DAILY [facility] Last Admin: 09/16/17 10:24 Dose: 30 mg Levothyroxine Sodium (Synthroid) 112 mcg PO 0600 [facility] Last Admin: 09/15/17 05:51 Dose: 112 mcg Losartan Potassium (Cozaar) 25 mg PO DAILY [facility] Last Admin: 09/16/17 10:26 Dose: 25 mg Metoprolol Succinate (Toprol Xl) 25 mg PO BRK [facility] Last Admin: 09/16/17 10:25 Dose: 25 mg Pantoprazole Sodium (Protonix Ec Tab) 40 mg PO ACB [facility] Last Admin: 09/16/17 10:25 Dose: 40 mg Spironolactone (Aldactone) 12.5 mg PO BID [facility] Last Admin: 09/16/17 10:25 Dose: 12.5 mg Warfarin Sodium (Coumadin) 3 mg PO 1800 [facility] Last Admin: 09/15/17 17:05 Dose: 3 mg - Labs Labs: 09/12/17 07:20 09/12/17 07:20 PT 31.7 SECONDS (9.4-12.5) H 09/13/17 06:20 INR 2.70 (0.93-1.08) H 09/13/17 06:20 APTT 32.1 Seconds (25.1-36.5) 09/05/17 06:30 Attending/Attestation - Attestation I have personally seen and examined this patient.: Yes I have fully participated in the care of the patient.: Yes I have reviewed all pertinent clinical information, including history, physical exam and plan: Yes Notes (Text): 09/16/17 14:12 Attending note; Patient seen and examined with resident. Patient is a 87 year old female with a history of systolic heart failure with AICD and on milrinone drip, atrial fibrillation, hypothyroidism, and gout, admitted for acute gout attack and CHF exacerbation. Currently with stable cardiac status. Leg edema improved. on lasix, Aldactone, Cozaar, metoprolol, Imdur .Continue IV milrinone. INR is therapeutic. Acute gout; on tapering dose of prednisone and allopurinol. Complaining of mild left ankle pain. Colchicine added. Minimal swelling present. Chronic kidney disease; creatinine is stable at 1.2. Physical therapy evaluation appreciated. Subacute rehabilitation recommended. Patient is DNI DNR. pending [facility] placement. Case discussed with executive secretary social welfare in detail. Upon discharge the patient will follow-up with PMD .
[2017-09-15] MEDS: Milrinone 20mg/100ml D5W 100 ML IV PRN ×2 (06:59→21:26)
--- NOTE | 2017-09-15 07:35 | CP.PCM.PN ---
Subjective - Date & Time of Evaluation Date of Evaluation: 09/15/17 Time of Evaluation: 07:25 - Subjective Subjective: Rachele Trujillo PGY-1 [facility] Progress Note for Dr. Marcum's service Patient seen and examined at bedside. Patient offers no acute complaints. Pt ambulates with assistance to chair and bathroom. Patient reports good appetite and no urinary symptoms. Patient denies chest pain, shortness of breath, n/v/c/ d. Objective - Vital Signs/Intake and Output Vital Signs (last 24 hours): Temp Pulse Resp BP Pulse Ox 98.2 F 75 18 128/59 L 99 09/14/17 22:00 09/15/17 06:59 09/14/17 22:00 09/15/17 06:59 09/14/17 22:00 Intake and Output: 09/15/17 09/15/17 06:59 18:59 Intake Total 960 Balance 960 - Medications Medications: Current Medications Acetaminophen (Tylenol 325mg Tab) 650 mg PO Q6H PRN PRN Reason: Pain, Mild (1-3) Last Admin: 09/11/17 08:52 Dose: 650 mg Allopurinol (Zyloprim) 100 mg PO TID [facility] Last Admin: 09/14/17 17:29 Dose: 100 mg Digoxin (Digoxin) 0.125 mg PO Q48H [facility] Last Admin: 09/14/17 14:53 Dose: 0.125 mg Furosemide (Lasix) 20 mg PO HS [facility] Last Admin: 09/14/17 21:41 Dose: 20 mg Furosemide (Lasix) 40 mg PO DAILY [facility] Milrinone Lactate/Dextrose (Primacor 20mg/100ml D5w) 100 mls @ 6.96 mls/hr IV .[id number] PRN; Protocol; 0.33 MCG/KG/MIN PRN Reason: TITRATE PER MD ORDER Last Admin: 09/15/17 06:59 Dose: 0.33 mcg/kg/min, 6.96 mls/hr Isosorbide Mononitrate (Imdur Er) 30 mg PO DAILY [facility] Last Admin: 09/14/17 10:34 Dose: 30 mg Levothyroxine Sodium (Synthroid) 112 mcg PO 0600 [facility] Last Admin: 09/15/17 05:51 Dose: 112 mcg Losartan Potassium (Cozaar) 25 mg PO DAILY [facility] Last Admin: 09/14/17 10:35 Dose: Not Given Magnesium Oxide (Mag-Ox) 400 mg PO DAILY [facility] Last Admin: 09/14/17 10:31 Dose: 400 mg Metoprolol Succinate (Toprol Xl) 25 mg PO BRK [facility] Last Admin: 09/14/17 08:18 Dose: 25 mg Pantoprazole Sodium (Protonix Ec Tab) 40 mg PO ACB [facility] Last Admin: 09/14/17 08:18 Dose: 40 mg Prednisone (Prednisone Tab) 5 mg PO DAILY [facility] Last Admin: 09/14/17 10:31 Dose: 5 mg Spironolactone (Aldactone) 12.5 mg PO BID [facility] Last Admin: 09/14/17 17:29 Dose: 12.5 mg Warfarin Sodium (Coumadin) 3 mg PO 1800 [facility] Last Admin: 09/14/17 17:29 Dose: 3 mg - Labs Labs: 09/12/17 07:20 09/12/17 07:20 PT 31.7 SECONDS (9.4-12.5) H 09/13/17 06:20 INR 2.70 (0.93-1.08) H 09/13/17 06:20 APTT 32.1 Seconds (25.1-36.5) 09/05/17 06:30 - Additional Findings Additional findings: - Constitutional Appears: Non-toxic, No Acute Distress - Eye Exam Eye Exam: absent: Scleral icterus - Respiratory Exam Respiratory Exam: absent: Respiratory Distress Additional comments: chronic fine rales b/l - Cardiovascular Exam Cardiovascular Exam: RRR, +S1, +S2. absent: Gallop - GI/Abdominal Exam GI & Abdominal Exam: absent: Distended - Extremities Exam Additional comments: minimal lower leg edema; - Neurological Exam Neurological Exam: Alert, Awake - Psychiatric Exam Psychiatric exam: Normal Mood. absent: Agitated - Skin Skin Exam: Warm. absent: Cyanosis Assessment and Plan - Assessment and Plan (Free Text) Assessment: Patient is a 87 year old female with PMH CHF (EF 8%), Atrial Fib, hypothyroidism , and gout admitted for gout flare and acute CHF exacerbation which has now resolved. Patient awaiting placement in [facility] ex[facility] facility. Plan: (1) Renal insufficiency Assessment & Plan: Stable and relatively mild renal insufficiency of cardiorenal etiology continue to optimize CHF status per cardio recs Continue Lasix 40mg daily and 20mg HS Check daily standing weights Status: Chronic (2) HFrEF (heart failure with reduced ejection fraction) Assessment & Plan: Asymptomatic and euvolemic on exam Continue heart failure meds leg edema has improved significantly Status: Chronic (3) Hyperuricemia Assessment & Plan: Gout flare resolved Continue allopurinol 100 mg tid Continue prednisone taper Target uric acid level < 6.0, titrate dose upward as needed; Status: Chronic (4) Metabolic alkalosis Assessment & Plan: Continue Lasix 40 at AM and 20 HS; Continue Aldactone 12.5 bid; Status: Acute Discussed medical management and care for patient with women's garment fitter, Dr. Marcum. [facility].
[2017-09-15] MEDS: Metoprolol Succinate 25 mg XL Tab PO SCH (08:39)
[2017-09-15] MEDS: Pantoprazole 40 mg EC Tab PO SCH (08:39)
[2017-09-15] MEDS: Magnesium Oxide 400 mg Tab UD PO SCH (09:01)
--- NOTE | 2017-09-16 06:17 | CP.PCM.PN ---
<Jaswinder Degroot - Last Filed: 09/16/17 19:18> Subjective - Date & Time of Evaluation Date of Evaluation: 09/16/17 Time of Evaluation: 06:00 - Subjective Subjective: Jaswinder Degroot D.O. PGY-1 -- Sample Tester -- Medicine Progress Note Patient was seen and evaluated at bedside this morning. Per patient, she has no complaints. Patient says she had a bowel movement and denies any diarrhea. Patient says she noticed her swelling in her lower extremities decrease since the day prior. Patient otherwise denies chest pain, shortness of breath, palpitations, abdominal pain, numbness and/or tingling, nausea, vomiting, and/ or fever. Objective - Vital Signs/Intake and Output Vital Signs (last 24 hours): Temp Pulse Resp BP Pulse Ox 97.4 F L 66 18 109/68 99 09/15/17 14:00 09/15/17 14:00 09/15/17 14:00 09/15/17 21:23 09/15/17 14:00 Intake and Output: 09/15/17 09/16/17 18:59 06:59 Intake Total 820 Balance 820 - Medications Medications: Current Medications Acetaminophen (Tylenol 325mg Tab) 650 mg PO Q6H PRN PRN Reason: Pain, Mild (1-3) Last Admin: 09/11/17 08:52 Dose: 650 mg Allopurinol (Zyloprim) 100 mg PO TID [facility] Last Admin: 09/15/17 17:06 Dose: 100 mg Colchicine (Colocrys) 0.6 mg PO DAILY PRN PRN Reason: PAIN DUE TO GOUT Last Admin: 09/15/17 20:23 Dose: 0.6 mg Digoxin (Digoxin) 0.125 mg PO Q48H [facility] Last Admin: 09/14/17 14:53 Dose: 0.125 mg Furosemide (Lasix) 20 mg PO HS [facility] Last Admin: 09/15/17 21:23 Dose: 20 mg Furosemide (Lasix) 40 mg PO DAILY [facility] Last Admin: 09/15/17 09:02 Dose: 40 mg Milrinone Lactate/Dextrose (Primacor 20mg/100ml D5w) 100 mls @ 6.96 mls/hr IV .[id number] PRN; Protocol; 0.33 MCG/KG/MIN PRN Reason: TITRATE PER MD ORDER Last Admin: 09/15/17 21:26 Dose: 0.33 mcg/kg/min, 6.96 mls/hr Isosorbide Mononitrate (Imdur Er) 30 mg PO DAILY [facility] Last Admin: 09/15/17 09:01 Dose: 30 mg Levothyroxine Sodium (Synthroid) 112 mcg PO 0600 [facility] Last Admin: 09/15/17 05:51 Dose: 112 mcg Losartan Potassium (Cozaar) 25 mg PO DAILY [facility] Last Admin: 09/15/17 09:01 Dose: 25 mg Magnesium Oxide (Mag-Ox) 400 mg PO DAILY [facility] Last Admin: 09/15/17 09:01 Dose: 400 mg Metoprolol Succinate (Toprol Xl) 25 mg PO BRK [facility] Last Admin: 09/15/17 08:39 Dose: 25 mg Pantoprazole Sodium (Protonix Ec Tab) 40 mg PO ACB [facility] Last Admin: 09/15/17 08:39 Dose: 40 mg Prednisone (Prednisone Tab) 5 mg PO DAILY [facility] Last Admin: 09/15/17 09:01 Dose: 5 mg Spironolactone (Aldactone) 12.5 mg PO BID [facility] Last Admin: 09/15/17 17:06 Dose: 12.5 mg Warfarin Sodium (Coumadin) 3 mg PO 1800 [facility] Last Admin: 09/15/17 17:05 Dose: 3 mg - Labs Labs: 09/12/17 07:20 09/12/17 07:20 PT 31.7 SECONDS (9.4-12.5) H 09/13/17 06:20 INR 2.70 (0.93-1.08) H 09/13/17 06:20 APTT 32.1 Seconds (25.1-36.5) 09/05/17 06:30 - Head Exam Head Exam: ATRAUMATIC, NORMAL INSPECTION, NORMOCEPHALIC - Eye Exam Eye Exam: Normal appearance Pupil Exam: NORMAL ACCOMODATION - ENT Exam ENT Exam: Mucous Membranes Moist, Normal Exam - Neck Exam Neck Exam: Full ROM, Normal Inspection - Respiratory Exam Respiratory Exam: Clear to Ausculation Bilateral, NORMAL BREATHING PATTERN. absent: Accessory Muscle Use, Chest Wall Tenderness, Decreased Breath Sounds, Prolonged Expiratory Phase, Rales, Rhonchi, Wheezes, Respiratory Distress, Stridor - Cardiovascular Exam Cardiovascular Exam: Gallop (S3 gallop ), REGULAR RHYTHM. absent: Bradycardia, Tachycardia, Clicks, Diastolic murmur, Irregular Rhythm - GI/Abdominal Exam GI & Abdominal Exam: Soft, Normal Bowel Sounds. absent: Bruit, Distended, Firm , Hyperactive Bowel Sounds, Rebound - Extremities Exam Extremities Exam: Pedal Edema (+1 pedal edama bilaterally). absent: Calf Tenderness, Tenderness - Back Exam Back Exam: NORMAL INSPECTION. absent: muscle spasm, paraspinal tenderness, rash noted, tenderness - Neurological Exam Neurological Exam: Alert, Awake, CN II-XII Intact, Normal Gait, Oriented x3 - Psychiatric Exam Psychiatric exam: Normal Affect, Normal Mood - Skin Skin Exam: Dry, Intact, Normal Color, Warm Assessment and Plan - Assessment and Plan (Free Text) Assessment: 87 [id number] with a past medical history of systolic congestive heart failure (CHF) with reduced ejection fraction (EF) of 8% status post AICD placement and on milrinone drip, atrial fibrillation, hypothyroidism, and gout, admitted for lower extremity (LE) pain likely secondary to acute gout attack and acute on chronic CHF exacerbation. LE pain secondary to acute gouty attack, resolved Colchicine 0.6mg PO Daily PRN Continue allopurinol Discontinue prednisone 5 mg taper Chronic systolic CHF (EF 8%), Acute exacerbation resolved Continue with same medical therapy Monitor daily weights Monitor I + O Maintain head of bed at 30 degrees OOB Consulted PT for eval and treat Cardiology and nephrology consulted on case, recommendations appreciated Atrial fibrillation, chronic Continue metoprolol, warfarin 3mg PO Chronic kidney disease, Stage III of cardiorenal etiology Continue to optimize cardiac status Nephrology and Cardiology consulted on case, recommendations appreciated Hyperkalemia, resolved 2g Potassium daily limit, per nephrology Watery diarrhea, resolved Likely 2/2 cochicine C.diff negative Continue to monitor Hyperuricemia, resolved Continue allopurinol History of hypothyroidism Continue synthroid GI/DVT PPx Protonix Coumadin Dispo: Placement accepted. Pending transfer to [facility]. Patient seen and case discussed in detail with Attending Physician, Dr. Cesar Degroot, D.O. PGY1 <Marvin Guerrero - Last Filed: 09/17/17 11:12> Objective - Vital Signs/Intake and Output Vital Signs (last 24 hours): Temp Pulse Resp BP Pulse Ox 98.5 F 92 H 19 103/48 L 99 09/17/17 06:00 09/17/17 08:26 09/17/17 06:00 09/17/17 10:44 09/17/17 06:00 Intake and Output: 09/17/17 09/17/17 06:59 18:59 Intake Total 340 Balance 340 - Medications Medications: Current Medications Acetaminophen (Tylenol 325mg Tab) 650 mg PO Q6H PRN PRN Reason: Pain, Mild (1-3) Last Admin: 09/11/17 08:52 Dose: 650 mg Allopurinol (Zyloprim) 100 mg PO TID [facility] Last Admin: 09/16/17 18:10 Dose: 100 mg Colchicine (Colocrys) 0.6 mg PO DAILY [facility] Last Admin: 09/17/17 10:44 Dose: 0.6 mg Colchicine (Colocrys) 0.6 mg PO ONCE ONE Stop: 09/17/17 19:42 Last Admin: 09/16/17 21:28 Dose: 0.6 mg Digoxin (Digoxin) 0.125 mg PO Q48H [facility] Last Admin: 09/16/17 15:57 Dose: 0.125 mg Furosemide (Lasix) 20 mg PO HS [facility] Last Admin: 09/17/17 04:56 Dose: 20 mg Furosemide (Lasix) 40 mg PO DAILY [facility] Last Admin: 09/17/17 10:45 Dose: Not Given Milrinone Lactate/Dextrose (Primacor 20mg/100ml D5w) 100 mls @ 6.96 mls/hr IV .[id number] PRN; Protocol; 0.33 MCG/KG/MIN PRN Reason: TITRATE PER MD ORDER Last Admin: 09/17/17 00:22 Dose: 0.33 mcg/kg/min, 6.96 mls/hr Isosorbide Mononitrate (Imdur Er) 30 mg PO DAILY [facility] Last Admin: 09/17/17 10:45 Dose: 30 mg Levothyroxine Sodium (Synthroid) 112 mcg PO 0600 [facility] Last Admin: 09/17/17 05:43 Dose: 112 mcg Losartan Potassium (Cozaar) 25 mg PO DAILY [facility] Last Admin: 09/17/17 10:44 Dose: Not Given Metoprolol Succinate (Toprol Xl) 25 mg PO BRK [facility] Last Admin: 09/17/17 08:26 Dose: 25 mg Pantoprazole Sodium (Protonix Ec Tab) 40 mg PO ACB [facility] Last Admin: 09/17/17 08:27 Dose: 40 mg Spironolactone (Aldactone) 12.5 mg PO BID [facility] Last Admin: 09/17/17 10:45 Dose: 12.5 mg Warfarin Sodium (Coumadin) 3 mg PO 1800 [facility] Last Admin: 09/16/17 18:10 Dose: 3 mg - Labs Labs: 09/12/17 07:20 09/12/17 07:20 PT 31.7 SECONDS (9.4-12.5) H 09/13/17 06:20 INR 2.70 (0.93-1.08) H 09/13/17 06:20 APTT 32.1 Seconds (25.1-36.5) 09/05/17 06:30 Attending/Attestation - Attestation I have personally seen and examined this patient.: Yes I have fully participated in the care of the patient.: Yes I have reviewed all pertinent clinical information, including history, physical exam and plan: Yes Notes (Text): 09/17/17 11:Attending note; Patient seen and examined with resident. Sitting in chair. Denies any complaints. Not in any acute distress. Patient is a 87 year old female with a history of systolic heart failure with AICD and on milrinone drip, atrial fibrillation, hypothyroidism, and gout, admitted for acute gout attack and CHF exacerbation. Currently with stable cardiac status. Leg edema improved. Acute gout; on tapering dose of prednisone and allopurinol. Complaining of mild left ankle pain. Physical therapy evaluation appreciated. Subacute rehabilitation recommended. Patient is DNI DNR. pending [facility] placement. Case discussed with director of social media marketing in detail. Upon discharge the patient will follow-up with PMD . 12
--- NOTE | 2017-09-16 09:20 | CP.PCM.PN ---
<Rachele Trujillo - Last Filed: 09/16/17 10:19> Subjective - Date & Time of Evaluation Date of Evaluation: 09/16/17 Time of Evaluation: 09:00 - Subjective Subjective: Scottygris Mortonem PGY-1 [facility] Progress Note Patient seen and examined at bedside. Patient offers no acute complaints; healthy appetite; denies diarrhea; reports good urine output with no urinary symptoms. Patient states her ankle was swollen last night and received colchicine at night. Patient denies chest pain, shortness of breath, N/V, constipation or diarrhea. Objective - Vital Signs/Intake and Output Vital Signs (last 24 hours): Temp Pulse Resp BP Pulse Ox 98.7 F 69 20 108/54 L 96 09/16/17 06:00 09/16/17 06:00 09/16/17 06:00 09/16/17 06:00 09/16/17 06:00 Intake and Output: 09/16/17 09/16/17 06:59 18:59 Intake Total 820 Balance 820 - Medications Medications: Current Medications Acetaminophen (Tylenol 325mg Tab) 650 mg PO Q6H PRN PRN Reason: Pain, Mild (1-3) Last Admin: 09/11/17 08:52 Dose: 650 mg Allopurinol (Zyloprim) 100 mg PO TID [facility] Last Admin: 09/15/17 17:06 Dose: 100 mg Colchicine (Colocrys) 0.6 mg PO DAILY PRN PRN Reason: PAIN DUE TO GOUT Last Admin: 09/15/17 20:23 Dose: 0.6 mg Digoxin (Digoxin) 0.125 mg PO Q48H [facility] Last Admin: 09/14/17 14:53 Dose: 0.125 mg Furosemide (Lasix) 20 mg PO HS [facility] Last Admin: 09/15/17 21:23 Dose: 20 mg Furosemide (Lasix) 40 mg PO DAILY [facility] Last Admin: 09/15/17 09:02 Dose: 40 mg Milrinone Lactate/Dextrose (Primacor 20mg/100ml D5w) 100 mls @ 6.96 mls/hr IV .[id number] PRN; Protocol; 0.33 MCG/KG/MIN PRN Reason: TITRATE PER MD ORDER Last Admin: 09/15/17 21:26 Dose: 0.33 mcg/kg/min, 6.96 mls/hr Isosorbide Mononitrate (Imdur Er) 30 mg PO DAILY [facility] Last Admin: 09/15/17 09:01 Dose: 30 mg Levothyroxine Sodium (Synthroid) 112 mcg PO 0600 [facility] Last Admin: 09/15/17 05:51 Dose: 112 mcg Losartan Potassium (Cozaar) 25 mg PO DAILY [facility] Last Admin: 09/15/17 09:01 Dose: 25 mg Magnesium Oxide (Mag-Ox) 400 mg PO DAILY [facility] Last Admin: 09/15/17 09:01 Dose: 400 mg Metoprolol Succinate (Toprol Xl) 25 mg PO BRK [facility] Last Admin: 09/15/17 08:39 Dose: 25 mg Pantoprazole Sodium (Protonix Ec Tab) 40 mg PO ACB [facility] Last Admin: 09/15/17 08:39 Dose: 40 mg Spironolactone (Aldactone) 12.5 mg PO BID [facility] Last Admin: 09/15/17 17:06 Dose: 12.5 mg Warfarin Sodium (Coumadin) 3 mg PO 1800 [facility] Last Admin: 09/15/17 17:05 Dose: 3 mg - Labs Labs: 09/12/17 07:20 09/12/17 07:20 PT 31.7 SECONDS (9.4-12.5) H 09/13/17 06:20 INR 2.70 (0.93-1.08) H 09/13/17 06:20 APTT 32.1 Seconds (25.1-36.5) 09/05/17 06:30 - Additional Findings Additional findings: - Constitutional Appears: Non-toxic, No Acute Distress - Eye Exam Eye Exam: absent: Scleral icterus - Respiratory Exam Respiratory Exam: absent: Respiratory Distress Additional comments: chronic fine rales b/l - Cardiovascular Exam Cardiovascular Exam: RRR, +S1, +S2. absent: Gallop - GI/Abdominal Exam GI & Abdominal Exam: Soft; +Bowel Sounds absent: Distended - Extremities Exam Additional comments: minimal lower leg edema; mild ankle swelling - Neurological Exam Neurological Exam: Alert, Awake - Psychiatric Exam Psychiatric exam: Normal Mood. absent: Agitated - Skin Skin Exam: Warm. absent: Cyanosis Assessment and Plan - Assessment and Plan (Free Text) Assessment: Patient is a 87 year old female with PMH CHF (EF 8%), Atrial Fib, hypothyroidism , and gout admitted for gout flare and acute CHF exacerbation which has now resolved. 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 Plan: (1) Renal insufficiency Assessment & Plan: Stable and relatively mild renal insufficiency of cardiorenal etiology continue to optimize CHF status per cardio recs Continue Lasix 40mg daily and 20mg HS Check daily standing weights Standing weight (09/16/17) - 158.8 (prior 160.8); likely secondary to increased diuresis Status: Chronic (2) HFrEF (heart failure with reduced ejection fraction) Assessment & Plan: Asymptomatic and euvolemic on exam Continue heart failure meds leg edema has improved significantly Status: Chronic (3) Hyperuricemia Assessment & Plan: Gout flare resolved Continue allopurinol 100 mg tid; may consider increasing dosage due to ankle swelling Prednisone DC'ed Target uric acid level < 6.0, titrate dose upward as needed; Received dose of colchicine last night for ankle swelling; ankle mildly swollen Colchicine changed to daily dosage instead of prn Continue to monitor Status: Chronic (4) Metabolic alkalosis Assessment & Plan: Continue Lasix 40 at AM and 20 HS; Continue Aldactone 12.5 bid; Status: Acute Discussed medical management and care for patient with returns supervisor, Dr. Marcum. Patient is awaiting placement in residential facility. <Otoniel Marcum - Last Filed: 09/17/17 07:19> Objective - Vital Signs/Intake and Output Vital Signs (last 24 hours): Temp Pulse Resp BP Pulse Ox 98.1 F 70 18 112/51 L 96 09/16/17 22:00 09/17/17 00:22 09/16/17 22:00 09/17/17 04:56 09/16/17 22:00 Intake and Output: 09/17/17 09/17/17 06:59 18:59 Intake Total 340 Balance 340 - Medications Medications: Current Medications Acetaminophen (Tylenol 325mg Tab) 650 mg PO Q6H PRN PRN Reason: Pain, Mild (1-3) Last Admin: 09/11/17 08:52 Dose: 650 mg Allopurinol (Zyloprim) 100 mg PO TID [facility] Last Admin: 09/16/17 18:10 Dose: 100 mg Colchicine (Colocrys) 0.6 mg PO DAILY [facility] Last Admin: 09/17/17 04:56 Dose: 0.6 mg Colchicine (Colocrys) 0.6 mg PO ONCE ONE Stop: 09/17/17 19:42 Last Admin: 09/16/17 21:28 Dose: 0.6 mg Digoxin (Digoxin) 0.125 mg PO Q48H [facility] Last Admin: 09/16/17 15:57 Dose: 0.125 mg Furosemide (Lasix) 20 mg PO HS [facility] Last Admin: 09/17/17 04:56 Dose: 20 mg Furosemide (Lasix) 40 mg PO DAILY [facility] Last Admin: 09/16/17 10:25 Dose: 40 mg Milrinone Lactate/Dextrose (Primacor 20mg/100ml D5w) 100 mls @ 6.96 mls/hr IV .[id number] PRN; Protocol; 0.33 MCG/KG/MIN PRN Reason: TITRATE PER MD ORDER Last Admin: 09/17/17 00:22 Dose: 0.33 mcg/kg/min, 6.96 mls/hr Isosorbide Mononitrate (Imdur Er) 30 mg PO DAILY [facility] Last Admin: 09/16/17 10:24 Dose: 30 mg Levothyroxine Sodium (Synthroid) 112 mcg PO 0600 [facility] Last Admin: 09/17/17 05:43 Dose: 112 mcg Losartan Potassium (Cozaar) 25 mg PO DAILY [facility] Last Admin: 09/16/17 10:26 Dose: 25 mg Metoprolol Succinate (Toprol Xl) 25 mg PO BRK [facility] Last Admin: 09/16/17 10:25 Dose: 25 mg Pantoprazole Sodium (Protonix Ec Tab) 40 mg PO ACB [facility] Last Admin: 09/16/17 10:25 Dose: 40 mg Spironolactone (Aldactone) 12.5 mg PO BID [facility] Last Admin: 09/16/17 18:10 Dose: 12.5 mg Warfarin Sodium (Coumadin) 3 mg PO 1800 [facility] Last Admin: 09/16/17 18:10 Dose: 3 mg - Labs Labs: 09/12/17 07:20 09/12/17 07:20 PT 31.7 SECONDS (9.4-12.5) H 09/13/17 06:20 INR 2.70 (0.93-1.08) H 09/13/17 06:20 APTT 32.1 Seconds (25.1-36.5) 09/05/17 06:30 Assessment and Plan (1) Renal insufficiency Status: Chronic (2) HFrEF (heart failure with reduced ejection fraction) Status: Chronic (3) Hyperuricemia Status: Chronic (4) Metabolic alkalosis Status: Acute Attending/Attestation - Attestation I have personally seen and examined this patient.: Yes I have fully participated in the care of the patient.: Yes I have reviewed all pertinent clinical information, including history, physical exam and plan: Yes Notes (Text): Patient seen and examined; I agree with the resident's note as above with the following edits/additions: Patient with cardiomyopathy on home milrinone, admitted with CHF exacerbation and acute gout flare, now awaiting placement; Bilateral ankle edema noted yesterday evening with L ankle warm to touch despite patient not being in pain; ankle edema still present today but warmth has decreased significantly; colchicine dose given due to concern for gout flare and order being changed from daily prn to standing; increased dose of diuretics may be increasing uric acid level; -recommend to check uric acid level with next set of labs; should increase allopurinol dose as needed; -continue lasix PO 40 mg in am and 20 mg in pm; -needs daily standing weights; -continue B-blockers/ARB per cardio recs; -continue aldactone to offset alkalosis;
[2017-09-16] MEDS: Pantoprazole 40 mg EC Tab PO SCH (10:25)
[2017-09-16] MEDS: Metoprolol Succinate 25 mg XL Tab PO SCH (10:25)
[2017-09-16] MEDS: Magnesium Oxide 400 mg Tab UD PO SCH (11:31)
[2017-09-16] MEDS: Milrinone 20mg/100ml D5W 100 ML IV PRN (12:31)
--- NOTE | 2017-09-16 12:57 | CP.PCM.DIS ---
Provider - Provider Date of Admission: 08/29/17 01:36 Attending physician: Marvin Guerrero MD Primary care physician: Boaz Green MD Hospital Course - Lab Results Lab Results: Micro Results 09/02/17 12:30 Stool C. difficile Antigen & Toxin A,B (M - Final 08/29/17 06:40 Blood Blood Culture - Final NO GROWTH AFTER 5 DAYS 09/01/17 12:00 Urine Urine Culture - Final No Growth (<1,000 CFU/ML) Most Recent Lab Values WBC 11.1 10^3/ul (4.5-11.0) H 09/12/17 07:20 RBC 3.30 10^6/uL (3.5-6.1) L 09/12/17 07:20 Hgb 10.1 g/dL (12.0-16.0) L 09/12/17 07:20 Hct 30.3 % (36.0-48.0) L 09/12/17 07:20 MCV 91.8 fl (80.0-105.0) 09/12/17 07:20 MCH 30.6 pg (25.0-35.0) 09/12/17 07:20 MCHC 33.3 g/dl (31.0-37.0) 09/12/17 07:20 RDW 15.9 % (11.5-14.5) H 09/12/17 07:20 Plt Count 204 10^3/uL (120.0-450.0) 09/12/17 07:20 MPV 10.3 fl (7.0-11.0) 09/12/17 07:20 Gran % 66.5 % (50.0-68.0) 09/12/17 07:20 Lymph % (Auto) 23.2 % (22.0-35.0) 09/12/17 07:20 [place] % (Auto) 7.5 % (1.0-6.0) H 09/12/17 07:20 Eos % (Auto) 2.7 % (1.5-5.0) 09/12/17 07:20 Baso % (Auto) 0.1 % (0.0-3.0) 09/12/17 07:20 Gran # 7.38 (1.4-6.5) H 09/12/17 07:20 Lymph # (Auto) 2.6 (1.2-3.4) 09/12/17 07:20 [place] # (Auto) 0.8 (0.1-0.6) H 09/12/17 07:20 Eos # (Auto) 0.3 (0.0-0.7) 09/12/17 07:20 Baso # (Auto) 0.01 K/mm3 (0.0-2.0) 09/12/17 07:20 PT 31.7 SECONDS (9.4-12.5) H 09/13/17 06:20 INR 2.70 (0.93-1.08) H 09/13/17 06:20 APTT 32.1 Seconds (25.1-36.5) 09/05/17 06:30 Sodium 137 mmol/L (132-148) 09/12/17 07:20 Potassium 4.6 mmol/L (3.6-5.0) 09/12/17 07:20 Chloride 98 mmol/L (98-107) 09/12/17 07:20 Carbon Dioxide 31 mmol/L (21-33) 09/12/17 07:20 Anion Gap 12 (10-20) 09/12/17 07:20 BUN 39 mg/dL (7-21) H 09/12/17 07:20 Creatinine 1.2 mg/dl (0.7-1.2) 09/12/17 07:20 Est GFR ( Amer) 52 09/12/17 07:20 Est GFR (Non-Af Amer) 43 09/12/17 07:20 Random Glucose 91 mg/dL (70-110) 09/12/17 07:20 Uric Acid 6.7 mg/dL (2.5-6.2) H 08/30/17 06:30 Calcium 8.4 mg/dL (8.4-10.5) 09/12/17 07:20 Phosphorus 3.4 mg/dL (2.5-4.5) 08/29/17 00:33 Magnesium 1.9 mg/dL (1.7-2.2) 09/09/17 07:30 Iron 73 ug/dL (45-180) 08/31/17 06:00 TIBC 216 ug/dL (265-497) L 08/31/17 06:00 % Saturation 34 % (20-55) 08/31/17 06:00 Ferritin 56.7 ng/mL 08/31/17 06:00 Total Bilirubin 0.4 mg/dL (0.2-1.3) 09/12/17 07:20 AST 40 U/L (14-36) H D 09/12/17 07:20 ALT 62 U/L (7-56) H 09/12/17 07:20 Alkaline Phosphatase 92 U/L (38-126) 09/12/17 07:20 Lactate Dehydrogenase 638 U/L (333-699) 08/29/17 00:33 Total Creatine Kinase 32 U/L (35-230) L 08/29/17 00:33 Troponin I 0.06 ng/mL 08/29/17 11:48 NT-Pro-B Natriuret Pep 4970 pg/mL (0-450) H 09/05/17 06:30 Total Protein 6.1 g/dL (5.8-8.3) 09/12/17 07:20 Albumin 3.1 g/dL (3.0-4.8) 09/12/17 07:20 Globulin 3.0 gm/dL 09/12/17 07:20 Albumin/Globulin Ratio 1.1 (1.1-1.8) 09/12/17 07:20 Procalcitonin 0.49 NG/ML (0.19-0.49) 08/29/17 07:06 Free T4 1.68 ng/dL (0.78-2.19) 08/29/17 08:30 TSH 3rd Generation 7.48 mIU/mL (0.46-4.68) H 08/29/17 08:30 Stool Occult Blood Negative (NEGATIVE) 09/02/17 12:50 Discharge Exam - Head Exam Head Exam: ATRAUMATIC, NORMAL INSPECTION, NORMOCEPHALIC Discharge Plan - Discharge Medications Prescriptions: Allopurinol [Zyloprim] 100 mg PO BID #28 tab Colchicine [Colcrys] 0.6 mg PO DAILY #14 tablet Digoxin 0.125 mg PO Q48H #7 tab Famotidine [Pepcid] 20 mg PO HS #14 tab Furosemide [Lasix] 20 mg PO HS 14 Days #14 tab Furosemide [Lasix] 40 mg PO DAILY #14 tab Isosorbide Mononitrate ER [Imdur ER] 30 mg PO DAILY #14 tab Levothyroxine [Synthroid] 112 mcg PO DAILY #14 tab Losartan [Cozaar] 25 mg PO DAILY #14 tab Metoprolol Succinate XL [Toprol XL] 25 mg PO BRK #14 tab Milrinone 20mg/100ml D5W [Primacor 20mg/100ml D5W] 0.33 mcg IV CONT 30 Days bag Spironolactone 12.5 mg PO BID 14 Days #28 tablet Warfarin [Coumadin] 3 mg PO QOTHERDAY #7 tab Warfarin [Coumadin] 5 mg PO QOTHERDAY #7 tab - Follow Up Plan Condition: GOOD Disposition: HOME/ ROUTINE Instructions: Gout, Lifestyle Changes to Manage Gout, Heart Failure With Reduced Ejection Fraction Additional Instructions: - Please resume medications - Follow up with PMD Dr Green in 1 week, for INR level - Follow up with Dr Alcantara in 1 week - Follow up with Dr Hope in 1 week. - Return to ER for any concerns. Referrals: Zander Hope MD [Staff Provider] - Juan Jose Alcantara MD [Staff Provider] - Otoniel Marcum MD [Staff Provider] - Boaz Green MD [Primary Care Provider] -
[2017-09-16] MEDS: Digoxin 125 mcg (0.125 mg) Tab PO SCH (15:57)
[2017-09-17] MEDS: Milrinone 20mg/100ml D5W 100 ML IV PRN (00:22)
[2017-09-17] MEDS: Levothyroxine 112 MCG TAB PO SCH (05:43)
[2017-09-17] MEDS: Metoprolol Succinate 25 mg XL Tab PO SCH (08:26)
[2017-09-17] MEDS: Pantoprazole 40 mg EC Tab PO SCH (08:27)
--- NOTE | 2017-09-17 10:34 | CP.PCM.PN ---
<Pedro Hardy - Last Filed: 09/17/17 10:38> Subjective - Date & Time of Evaluation Date of Evaluation: 09/17/17 Time of Evaluation: 10:31 - Subjective Subjective: Pedro Hardy D.O PGY-1, Internal Medicine progress note for Dr. Guerrero Patient was examined at bedside, no acute overnight events. Patient offers no new complaints at this time. Denies fevers, chills, chest pain, shortness of breath, abdominal pain, N/V/D. Objective - Vital Signs/Intake and Output Vital Signs (last 24 hours): Temp Pulse Resp BP Pulse Ox 98.1 F 92 H 18 128/60 96 09/16/17 22:00 09/17/17 08:26 09/16/17 22:00 09/17/17 08:26 09/16/17 22:00 Intake and Output: 09/17/17 09/17/17 06:59 18:59 Intake Total 340 Balance 340 - Medications Medications: Current Medications Acetaminophen (Tylenol 325mg Tab) 650 mg PO Q6H PRN PRN Reason: Pain, Mild (1-3) Last Admin: 09/11/17 08:52 Dose: 650 mg Allopurinol (Zyloprim) 100 mg PO TID [facility] Last Admin: 09/16/17 18:10 Dose: 100 mg Colchicine (Colocrys) 0.6 mg PO DAILY [facility] Last Admin: 09/17/17 04:56 Dose: 0.6 mg Colchicine (Colocrys) 0.6 mg PO ONCE ONE Stop: 09/17/17 19:42 Last Admin: 09/16/17 21:28 Dose: 0.6 mg Digoxin (Digoxin) 0.125 mg PO Q48H [facility] Last Admin: 09/16/17 15:57 Dose: 0.125 mg Furosemide (Lasix) 20 mg PO HS [facility] Last Admin: 09/17/17 04:56 Dose: 20 mg Furosemide (Lasix) 40 mg PO DAILY [facility] Last Admin: 09/16/17 10:25 Dose: 40 mg Milrinone Lactate/Dextrose (Primacor 20mg/100ml D5w) 100 mls @ 6.96 mls/hr IV .[id number] PRN; Protocol; 0.33 MCG/KG/MIN PRN Reason: TITRATE PER MD ORDER Last Admin: 09/17/17 00:22 Dose: 0.33 mcg/kg/min, 6.96 mls/hr Isosorbide Mononitrate (Imdur Er) 30 mg PO DAILY [facility] Last Admin: 09/16/17 10:24 Dose: 30 mg Levothyroxine Sodium (Synthroid) 112 mcg PO 0600 [facility] Last Admin: 09/17/17 05:43 Dose: 112 mcg Losartan Potassium (Cozaar) 25 mg PO DAILY [facility] Last Admin: 09/16/17 10:26 Dose: 25 mg Metoprolol Succinate (Toprol Xl) 25 mg PO BRK [facility] Last Admin: 09/17/17 08:26 Dose: 25 mg Pantoprazole Sodium (Protonix Ec Tab) 40 mg PO ACB [facility] Last Admin: 09/17/17 08:27 Dose: 40 mg Spironolactone (Aldactone) 12.5 mg PO BID [facility] Last Admin: 09/16/17 18:10 Dose: 12.5 mg Warfarin Sodium (Coumadin) 3 mg PO 1800 [facility] Last Admin: 09/16/17 18:10 Dose: 3 mg - Labs Labs: 09/12/17 07:20 09/12/17 07:20 PT 31.7 SECONDS (9.4-12.5) H 09/13/17 06:20 INR 2.70 (0.93-1.08) H 09/13/17 06:20 APTT 32.1 Seconds (25.1-36.5) 09/05/17 06:30 - Constitutional Appears: No Acute Distress - Head Exam Head Exam: ATRAUMATIC, NORMAL INSPECTION - Eye Exam Eye Exam: Normal appearance - ENT Exam ENT Exam: Mucous Membranes Moist - Respiratory Exam Respiratory Exam: Clear to Ausculation Bilateral. absent: Rales, Rhonchi, Wheezes - Cardiovascular Exam Cardiovascular Exam: REGULAR RHYTHM, +S1, +S2. absent: Gallop, Rubs, Murmur - GI/Abdominal Exam GI & Abdominal Exam: Soft, Normal Bowel Sounds. absent: Tenderness - Extremities Exam Extremities Exam: absent: Calf Tenderness, Pedal Edema - Neurological Exam Neurological Exam: Alert, Awake, Oriented x3 - Psychiatric Exam Psychiatric exam: Normal Affect, Normal Mood - Skin Skin Exam: Dry, Normal Color, Warm Assessment and Plan - Assessment and Plan (Free Text) Assessment: Ms. Barlow is a 87 [id number] with a past medical history of systolic congestive heart failure (CHF) with reduced ejection fraction (EF) of 8% status post AICD placement and on milrinone drip, atrial fibrillation, hypothyroidism, and gout, admitted for lower extremity (LE) pain likely secondary to acute gout attack and acute on chronic CHF exacerbation. Plan: LE pain secondary to acute gouty attack, resolved Colchicine 0.6mg PO Daily PRN Continue allopurinol Discontinue prednisone 5 mg taper Chronic systolic CHF (EF 8%), Acute exacerbation resolved Continue with same medical therapy LLE edema improving Monitor daily weights Monitor I + O Maintain head of bed at 30 degrees OOB Consulted PT for eval and treat Cardiology and nephrology consulted on case, recommendations appreciated Atrial fibrillation, chronic Continue metoprolol, warfarin 3mg PO Chronic kidney disease, Stage III of cardiorenal etiology Continue to optimize cardiac status Nephrology and Cardiology consulted on case, recommendations appreciated Hyperkalemia, resolved 2g Potassium daily limit, per nephrology continue to monitor Watery diarrhea, resolved Likely 2/2 cochicine C.diff negative Continue to monitor Hyperuricemia, resolved Continue allopurinol History of hypothyroidism Continue synthroid GI/DVT PPx Protonix Coumadin Dispo: Placement accepted at [facility]. Awaiting insurance authorization. Patient seen and case discussed in detail with Attending Physician, Dr. Guerrero <Marvin Guerrero - Last Filed: 09/17/17 11:15> Objective - Vital Signs/Intake and Output Vital Signs (last 24 hours): Temp Pulse Resp BP Pulse Ox 98.5 F 92 H 19 103/48 L 99 09/17/17 06:00 09/17/17 08:26 09/17/17 06:00 09/17/17 10:44 09/17/17 06:00 Intake and Output: 09/17/17 09/17/17 06:59 18:59 Intake Total 340 Balance 340 - Medications Medications: Current Medications Acetaminophen (Tylenol 325mg Tab) 650 mg PO Q6H PRN PRN Reason: Pain, Mild (1-3) Last Admin: 09/11/17 08:52 Dose: 650 mg Allopurinol (Zyloprim) 100 mg PO TID [facility] Last Admin: 09/16/17 18:10 Dose: 100 mg Colchicine (Colocrys) 0.6 mg PO DAILY [facility] Last Admin: 09/17/17 10:44 Dose: 0.6 mg Colchicine (Colocrys) 0.6 mg PO ONCE ONE Stop: 09/17/17 19:42 Last Admin: 09/16/17 21:28 Dose: 0.6 mg Digoxin (Digoxin) 0.125 mg PO Q48H [facility] Last Admin: 09/16/17 15:57 Dose: 0.125 mg Furosemide (Lasix) 20 mg PO HS [facility] Last Admin: 09/17/17 04:56 Dose: 20 mg Furosemide (Lasix) 40 mg PO DAILY [facility] Last Admin: 09/17/17 10:45 Dose: Not Given Milrinone Lactate/Dextrose (Primacor 20mg/100ml D5w) 100 mls @ 6.96 mls/hr IV .[id number] PRN; Protocol; 0.33 MCG/KG/MIN PRN Reason: TITRATE PER MD ORDER Last Admin: 09/17/17 00:22 Dose: 0.33 mcg/kg/min, 6.96 mls/hr Isosorbide Mononitrate (Imdur Er) 30 mg PO DAILY [facility] Last Admin: 09/17/17 10:45 Dose: 30 mg Levothyroxine Sodium (Synthroid) 112 mcg PO 0600 [facility] Last Admin: 09/17/17 05:43 Dose: 112 mcg Losartan Potassium (Cozaar) 25 mg PO DAILY [facility] Last Admin: 09/17/17 10:44 Dose: Not Given Metoprolol Succinate (Toprol Xl) 25 mg PO BRK [facility] Last Admin: 09/17/17 08:26 Dose: 25 mg Pantoprazole Sodium (Protonix Ec Tab) 40 mg PO ACB [facility] Last Admin: 09/17/17 08:27 Dose: 40 mg Spironolactone (Aldactone) 12.5 mg PO BID [facility] Last Admin: 09/17/17 10:45 Dose: 12.5 mg Warfarin Sodium (Coumadin) 3 mg PO 1800 [facility] Last Admin: 09/16/17 18:10 Dose: 3 mg - Labs Labs: 09/12/17 07:20 09/12/17 07:20 PT 31.7 SECONDS (9.4-12.5) H 09/13/17 06:20 INR 2.70 (0.93-1.08) H 09/13/17 06:20 APTT 32.1 Seconds (25.1-36.5) 09/05/17 06:30 Attending/Attestation - Attestation I have personally seen and examined this patient.: Yes I have fully participated in the care of the patient.: Yes I have reviewed all pertinent clinical information, including history, physical exam and plan: Yes Notes (Text): 09/17/17 11:14 Patient seen and examined with resident. Sitting in chair. Denies any complaints. Not in any acute distress. Patient is a 87 year old female with a history of systolic heart failure with AICD and on milrinone drip, atrial fibrillation, hypothyroidism, and gout, admitted for acute gout attack and CHF exacerbation. Currently with stable cardiac status. Leg edema improved. Acute gout; on tapering dose of prednisone and allopurinol. Complaining of mild left ankle pain. Physical therapy evaluation appreciated. Subacute rehabilitation recommended. Patient is DNI DNR. Patient was accepted at [facility]. Pending insurance authorization. Possible discharge on Tuesday. Upon discharge the patient will follow-up with PMD . 12
[2017-09-18] MEDS: Pantoprazole 40 mg EC Tab PO SCH ×2 (05:56→20:15)
[2017-09-18] MEDS: Levothyroxine 112 MCG TAB PO SCH (05:56)
[2017-09-18] MEDS: Milrinone 20mg/100ml D5W 100 ML IV PRN ×2 (05:56→21:19)
[2017-09-18] MEDS: Metoprolol Succinate 25 mg XL Tab PO SCH (10:38)
--- NOTE | 2017-09-18 10:43 | CP.PCM.PN ---
<Pedro Hardy - Last Filed: 09/18/17 10:37> Subjective - Date & Time of Evaluation Date of Evaluation: 09/18/17 Time of Evaluation: 10:37 - Subjective Subjective: Pedro Hardy D.O PGY-1, Internal Medicine progress note for Dr. Guerrero Patient was examined at bedside, no acute overnight events. Patient offers no new complaints at this time. Denies fevers, chills, chest pain, shortness of breath, abdominal pain, N/V/D. Objective - Vital Signs/Intake and Output Vital Signs (last 24 hours): Temp Pulse Resp BP Pulse Ox 97.7 F 70 18 122/55 L 100 09/18/17 08:03 09/18/17 08:03 09/18/17 08:03 09/18/17 08:03 09/18/17 08:03 Intake and Output: 09/18/17 09/18/17 06:59 18:59 Intake Total 720 Balance 720 - Medications Medications: Current Medications Acetaminophen (Tylenol 325mg Tab) 650 mg PO Q6H PRN PRN Reason: Pain, Mild (1-3) Last Admin: 09/11/17 08:52 Dose: 650 mg Allopurinol (Zyloprim) 100 mg PO TID [facility] Last Admin: 09/17/17 17:45 Dose: 100 mg Colchicine (Colocrys) 0.6 mg PO DAILY [facility] Last Admin: 09/17/17 10:44 Dose: 0.6 mg Digoxin (Digoxin) 0.125 mg PO Q48H [facility] Last Admin: 09/16/17 15:57 Dose: 0.125 mg Furosemide (Lasix) 20 mg PO HS [facility] Last Admin: 09/17/17 21:11 Dose: 20 mg Furosemide (Lasix) 40 mg PO DAILY [facility] Last Admin: 09/17/17 10:45 Dose: Not Given Milrinone Lactate/Dextrose (Primacor 20mg/100ml D5w) 100 mls @ 6.96 mls/hr IV .[id number] PRN; Protocol; 0.33 MCG/KG/MIN PRN Reason: TITRATE PER MD ORDER Last Admin: 09/18/17 05:56 Dose: 0.33 mcg/kg/min, 6.96 mls/hr Isosorbide Mononitrate (Imdur Er) 30 mg PO DAILY [facility] Last Admin: 09/17/17 10:45 Dose: 30 mg Levothyroxine Sodium (Synthroid) 112 mcg PO 0600 [facility] Last Admin: 09/18/17 05:56 Dose: 112 mcg Losartan Potassium (Cozaar) 25 mg PO DAILY [facility] Last Admin: 09/17/17 10:44 Dose: Not Given Metoprolol Succinate (Toprol Xl) 25 mg PO BRK [facility] Last Admin: 09/17/17 08:26 Dose: 25 mg Pantoprazole Sodium (Protonix Ec Tab) 40 mg PO ACB [facility] Last Admin: 09/18/17 05:56 Dose: 40 mg Spironolactone (Aldactone) 12.5 mg PO BID [facility] Last Admin: 09/17/17 17:46 Dose: Not Given Warfarin Sodium (Coumadin) 3 mg PO 1800 [facility] Last Admin: 09/17/17 17:46 Dose: 3 mg - Labs Labs: 09/12/17 07:20 09/12/17 07:20 PT 31.7 SECONDS (9.4-12.5) H 09/13/17 06:20 INR 2.70 (0.93-1.08) H 09/13/17 06:20 APTT 32.1 Seconds (25.1-36.5) 09/05/17 06:30 - Constitutional Appears: No Acute Distress - Head Exam Head Exam: ATRAUMATIC, NORMAL INSPECTION - Eye Exam Eye Exam: Normal appearance - ENT Exam ENT Exam: Mucous Membranes Moist - Respiratory Exam Respiratory Exam: Clear to Ausculation Bilateral. absent: Rales, Rhonchi, Wheezes - Cardiovascular Exam Cardiovascular Exam: REGULAR RHYTHM, +S1, +S2. absent: Rubs, Murmur - GI/Abdominal Exam GI & Abdominal Exam: Soft, Normal Bowel Sounds. absent: Tenderness - Extremities Exam Extremities Exam: absent: Calf Tenderness, Pedal Edema - Neurological Exam Neurological Exam: Alert, Awake, Oriented x3 - Psychiatric Exam Psychiatric exam: Normal Affect, Normal Mood - Skin Skin Exam: Dry, Normal Color, Warm Assessment and Plan - Assessment and Plan (Free Text) Assessment: Ms. Barlow is a 87 [id number] with a past medical history of systolic congestive heart failure (CHF) with reduced ejection fraction (EF) of 8% status post AICD placement and on milrinone drip, atrial fibrillation, hypothyroidism, and gout, admitted for lower extremity (LE) pain likely secondary to acute gout attack and acute on chronic CHF exacerbation. We are awaiting insurance approval for placement. Plan: Chronic systolic CHF (EF 8%), Acute exacerbation resolved Continue with same medical therapy LLE edema improving Monitor daily weights Monitor I + O Maintain head of bed at 30 degrees OOB Consulted PT for eval and treat Cardiology and nephrology seen patient LE pain secondary to acute gouty attack, resolved Colchicine 0.6mg PO Daily PRN Continue allopurinol Atrial fibrillation, chronic Continue metoprolol, coumadin Chronic kidney disease, Stage III of cardiorenal etiology Continue to optimize cardiac status Hyperkalemia, resolved 2g Potassium daily limit, per nephrology continue to monitor Hyperuricemia, resolved Continue allopurinol History of hypothyroidism Continue synthroid GI/DVT PPx Protonix Coumadin Dispo: Placement accepted at [facility]. Awaiting insurance authorization. Patient seen and case discussed in detail with Attending Physician, Dr. Guerrero <Marvin Guerrero - Last Filed: 09/18/17 13:59> Objective - Vital Signs/Intake and Output Vital Signs (last 24 hours): Temp Pulse Resp BP Pulse Ox 97.7 F 70 18 118/63 100 09/18/17 08:03 09/18/17 08:03 09/18/17 08:03 09/18/17 10:37 09/18/17 08:03 Intake and Output: 09/18/17 09/18/17 06:59 18:59 Intake Total 720 620 Balance 720 620 - Medications Medications: Current Medications Acetaminophen (Tylenol 325mg Tab) 650 mg PO Q6H PRN PRN Reason: Pain, Mild (1-3) Last Admin: 09/11/17 08:52 Dose: 650 mg Allopurinol (Zyloprim) 100 mg PO TID [facility] Last Admin: 09/18/17 10:41 Dose: 100 mg Colchicine (Colocrys) 0.6 mg PO DAILY [facility] Last Admin: 09/18/17 10:38 Dose: 0.6 mg Digoxin (Digoxin) 0.125 mg PO Q48H [facility] Last Admin: 09/16/17 15:57 Dose: 0.125 mg Furosemide (Lasix) 20 mg PO HS [facility] Last Admin: 09/17/17 21:11 Dose: 20 mg Furosemide (Lasix) 40 mg PO DAILY [facility] Last Admin: 09/18/17 10:37 Dose: 40 mg Milrinone Lactate/Dextrose (Primacor 20mg/100ml D5w) 100 mls @ 6.96 mls/hr IV .[id number] PRN; Protocol; 0.33 MCG/KG/MIN PRN Reason: TITRATE PER MD ORDER Last Admin: 09/18/17 05:56 Dose: 0.33 mcg/kg/min, 6.96 mls/hr Isosorbide Mononitrate (Imdur Er) 30 mg PO DAILY [facility] Last Admin: 09/18/17 10:38 Dose: 30 mg Levothyroxine Sodium (Synthroid) 112 mcg PO 0600 [facility] Last Admin: 09/18/17 05:56 Dose: 112 mcg Losartan Potassium (Cozaar) 25 mg PO DAILY [facility] Last Admin: 09/18/17 10:38 Dose: 25 mg Metoprolol Succinate (Toprol Xl) 25 mg PO BRK [facility] Last Admin: 09/18/17 10:38 Dose: 25 mg Pantoprazole Sodium (Protonix Ec Tab) 40 mg PO ACB [facility] Last Admin: 09/18/17 05:56 Dose: 40 mg Spironolactone (Aldactone) 12.5 mg PO BID [facility] Last Admin: 09/18/17 10:38 Dose: 12.5 mg Warfarin Sodium (Coumadin) 3 mg PO 1800 [facility] Last Admin: 09/17/17 17:46 Dose: 3 mg - Labs Labs: 09/12/17 07:20 09/12/17 07:20 PT 31.7 SECONDS (9.4-12.5) H 09/13/17 06:20 INR 2.70 (0.93-1.08) H 09/13/17 06:20 APTT 32.1 Seconds (25.1-36.5) 09/05/17 06:30 Attending/Attestation - Attestation I have personally seen and examined this patient.: Yes I have fully participated in the care of the patient.: Yes I have reviewed all pertinent clinical information, including history, physical exam and plan: Yes Notes (Text): 09/18/17 13:59 Patient seen and examined with resident. Denies any complaints. Not in any acute distress. Patient is a 87 year old female with a history of systolic heart failure with AICD and on milrinone drip, atrial fibrillation, hypothyroidism, and gout, admitted for acute gout attack and CHF exacerbation. Currently with stable cardiac status. Leg edema improved. Acute gout; on tapering dose of prednisone and allopurinol. Complaining of mild left ankle pain. Physical therapy evaluation appreciated. Subacute rehabilitation recommended. Patient is DNI DNR. Patient was accepted at [facility]. Pending insurance authorization. Possible discharge on Tuesday. Upon discharge the patient will follow-up with PMD .
[2017-09-18] MEDS: Digoxin 125 mcg (0.125 mg) Tab PO SCH (14:46)
[2017-09-18 14:49] VITALS: PULSE 89
[2017-09-18 21:32] VITALS: O2SAT 100
[2017-09-19] MEDS: Levothyroxine 112 MCG TAB PO SCH (06:00)
[2017-09-19 08:49] VITALS: RESP 18
--- NOTE | 2017-09-19 09:25 | CP.PCM.PN ---
Subjective - Date & Time of Evaluation Date of Evaluation: 09/19/17 Time of Evaluation: 09:22 - Subjective Subjective: PGY-3 Nephrology progress note for Dr. Marcum's service Patient seen and examined at bedside. No acute distress. Patient states that she is doing well, denies chest pain, abd pain, n/v. she states that she is eating well and finishing all her meals. She states that she is urinating well on lasix. She states that she did not have PT over the weekend but was OOB to chair and walked to commode. Objective - Vital Signs/Intake and Output Vital Signs (last 24 hours): Temp Pulse Resp BP Pulse Ox 97.4 F L 66 18 126/77 100 09/19/17 06:00 09/19/17 06:00 09/19/17 06:00 09/19/17 06:00 09/19/17 06:00 Intake and Output: 09/19/17 09/19/17 06:59 18:59 Intake Total 100 Balance 100 - Medications Medications: Current Medications Acetaminophen (Tylenol 325mg Tab) 650 mg PO Q6H PRN PRN Reason: Pain, Mild (1-3) Last Admin: 09/11/17 08:52 Dose: 650 mg Allopurinol (Zyloprim) 100 mg PO TID [facility] Last Admin: 09/18/17 17:16 Dose: 100 mg Colchicine (Colocrys) 0.6 mg PO DAILY [facility] Last Admin: 09/18/17 10:38 Dose: 0.6 mg Digoxin (Digoxin) 0.125 mg PO Q48H [facility] Last Admin: 09/18/17 14:46 Dose: 0.125 mg Furosemide (Lasix) 20 mg PO HS [facility] Last Admin: 09/18/17 21:59 Dose: Not Given Furosemide (Lasix) 40 mg PO DAILY [facility] Last Admin: 09/18/17 10:37 Dose: 40 mg Milrinone Lactate/Dextrose (Primacor 20mg/100ml D5w) 100 mls @ 6.96 mls/hr IV .[id number] PRN; Protocol; 0.33 MCG/KG/MIN PRN Reason: TITRATE PER MD ORDER Last Admin: 09/18/17 21:19 Dose: 0.33 mcg/kg/min, 6.96 mls/hr Isosorbide Mononitrate (Imdur Er) 30 mg PO DAILY [facility] Last Admin: 09/18/17 10:38 Dose: 30 mg Levothyroxine Sodium (Synthroid) 112 mcg PO 0600 [facility] Last Admin: 09/19/17 06:00 Dose: 112 mcg Losartan Potassium (Cozaar) 25 mg PO DAILY [facility] Last Admin: 09/18/17 10:38 Dose: 25 mg Metoprolol Succinate (Toprol Xl) 25 mg PO BRK [facility] Last Admin: 09/18/17 10:38 Dose: 25 mg Pantoprazole Sodium (Protonix Ec Tab) 40 mg PO ACB [facility] Last Admin: 09/18/17 20:15 Dose: Not Given Spironolactone (Aldactone) 12.5 mg PO BID [facility] Last Admin: 09/18/17 17:16 Dose: 12.5 mg Warfarin Sodium (Coumadin) 3 mg PO 1800 [facility] Last Admin: 09/18/17 17:15 Dose: 3 mg - Labs Labs: 09/12/17 07:20 09/12/17 07:20 PT 31.7 SECONDS (9.4-12.5) H 09/13/17 06:20 INR 2.70 (0.93-1.08) H 09/13/17 06:20 APTT 32.1 Seconds (25.1-36.5) 09/05/17 06:30 - Constitutional Appears: Well, No Acute Distress - Head Exam Head Exam: ATRAUMATIC, NORMOCEPHALIC - Eye Exam Eye Exam: EOMI, Normal appearance - ENT Exam ENT Exam: Mucous Membranes Moist - Respiratory Exam Respiratory Exam: Clear to Ausculation Bilateral, NORMAL BREATHING PATTERN. absent: Decreased Breath Sounds, Rales, Rhonchi, Wheezes, Respiratory Distress - Cardiovascular Exam Cardiovascular Exam: REGULAR RHYTHM. absent: Bradycardia, Tachycardia - GI/Abdominal Exam GI & Abdominal Exam: Soft, Normal Bowel Sounds. absent: Distended, Tenderness - Extremities Exam Extremities Exam: Normal Inspection. absent: Pedal Edema, Tenderness - Neurological Exam Neurological Exam: Alert, Awake, Oriented x3 - Skin Skin Exam: Dry, Intact, Normal Color, Warm Assessment and Plan - Assessment and Plan (Free Text) Assessment: 87 year old female with PMH CHF (EF 8%), Atrial Fib, hypothyroidism, and gout admitted for gout flare and acute CHF exacerbation and DAPHNE which has now resolved. Patient awaiting [facility] in [facility]. Plan: (1) Renal insufficiency Assessment & Plan: Stable and relatively mild renal insufficiency of cardiorenal etiology continue to optimize CHF status per cardio recs Continue Lasix 40mg daily and 20mg HS Check daily standing weights Standing weight (09/19/17) - 159.9 (prior 160.8); likely secondary to increased diuresis Status: Chronic (2) HFrEF (heart failure with reduced ejection fraction) Assessment & Plan: Asymptomatic and euvolemic on exam Continue heart failure meds leg edema has improved significantly Status: Chronic (3) Hyperuricemia Assessment & Plan: Gout flare resolved increased allopurinol 200 mg BID; may consider increasing dosage due to ankle swelling Prednisone DC'ed Target uric acid level < 6.0, titrate dose upward as needed; cont daily Colchicine instead of prn Continue to monitor Status: Chronic (4) Metabolic alkalosis Assessment & Plan: Continue Lasix 40 at AM and 20 HS; Continue Aldactone 12.5 bid; Status: Acute Discussed medical management and care for patient with claims examiner, Dr. Marcum. Patient is awaiting placement in [facility].
[2017-09-19] MEDS: Pantoprazole 40 mg EC Tab PO SCH (09:41)
[2017-09-19] MEDS: Metoprolol Succinate 25 mg XL Tab PO SCH (09:42)
[2017-09-19 12:38] LABS: BASO # 0.02 K/mm3 (0.0-2.0); BASO % 0.3 % (0.0-3.0); EOS # 0.3 (0.0-0.7); EOS % 3.9 % (1.5-5.0); GRAN # 5.15 (1.4-6.5); GRAN % 64.9 % (50.0-68.0); HEMOGLOBIN 10.7 g/dL (12.0-16.0); LYMPH # 2.1 (1.2-3.4); MEAN CELL VOLUME 93.4 fl (80.0-105.0); MEAN CORPUSCULAR HEMOGLOBIN 30.8 pg (25.0-35.0); MEAN PLATELET VOLUME 9.6 fl (7.0-11.0); MONO # 0.4 (0.1-0.6); MONO % 4.9 % (1.0-6.0); RBC 3.47 10^6/uL (3.5-6.1); RED CELL DISTRIBUTION WIDTH 16.5 % (11.5-14.5); WHITE BLOOD COUNT 7.9 10^3/ul (4.5-11.0)
[2017-09-19 13:21] LABS: INR 1.73 (0.93-1.08); PROTHROMBIN TIME 20.1 SECONDS (9.4-12.5)
[2017-09-19] MEDS: Milrinone 20mg/100ml D5W 100 ML IV PRN (13:51)
--- NOTE | 2017-09-19 14:26 | CP.PCM.DIS ---
<Archie Jorge - Last Filed: 09/19/17 14:21> Provider - Provider Date of Admission: 08/29/17 01:36 Attending physician: Marvin Guerrero MD Primary care physician: Boaz Green MD Consults: Cardio: Quinton Nephro: Trixie Ortho: Jayy Palliative: Paramonte Time Spent in preparation of Discharge (in minutes): 45 Diagnosis - Discharge Diagnosis (1) Systolic CHF, acute on chronic Status: Chronic Priority: High (2) Atrial fibrillation Status: Chronic Priority: Medium (3) CKD (chronic kidney disease), stage III Status: Chronic Priority: Medium (4) Gout Status: Chronic Priority: Medium (5) Osteoarthritis Status: Chronic Priority: Medium (6) DAPHNE (acute kidney injury) Status: Resolved Priority: Medium Hospital Course - Lab Results Lab Results: Micro Results 09/02/17 12:30 Stool C. difficile Antigen & Toxin A,B (M - Final 08/29/17 06:40 Blood Blood Culture - Final NO GROWTH AFTER 5 DAYS 09/01/17 12:00 Urine Urine Culture - Final No Growth (<1,000 CFU/ML) Most Recent Lab Values WBC 7.9 10^3/ul (4.5-11.0) D 09/19/17 12:30 RBC 3.47 10^6/uL (3.5-6.1) L 09/19/17 12:30 Hgb 10.7 g/dL (12.0-16.0) L 09/19/17 12:30 Hct 32.4 % (36.0-48.0) L 09/19/17 12:30 MCV 93.4 fl (80.0-105.0) 09/19/17 12:30 MCH 30.8 pg (25.0-35.0) 09/19/17 12:30 MCHC 33.0 g/dl (31.0-37.0) 09/19/17 12:30 RDW 16.5 % (11.5-14.5) H 09/19/17 12:30 Plt Count 157 10^3/uL (120.0-450.0) 09/19/17 12:30 MPV 9.6 fl (7.0-11.0) 09/19/17 12:30 Gran % 64.9 % (50.0-68.0) 09/19/17 12:30 Lymph % (Auto) 26.0 % (22.0-35.0) 09/19/17 12:30 Hudson % (Auto) 4.9 % (1.0-6.0) 09/19/17 12:30 Eos % (Auto) 3.9 % (1.5-5.0) 09/19/17 12:30 Baso % (Auto) 0.3 % (0.0-3.0) 09/19/17 12:30 Gran # 5.15 (1.4-6.5) 09/19/17 12:30 Lymph # (Auto) 2.1 (1.2-3.4) 09/19/17 12:30 Hudson # (Auto) 0.4 (0.1-0.6) 09/19/17 12:30 Eos # (Auto) 0.3 (0.0-0.7) 09/19/17 12:30 Baso # (Auto) 0.02 K/mm3 (0.0-2.0) 09/19/17 12:30 PT 20.1 SECONDS (9.4-12.5) H 09/19/17 12:30 INR 1.73 (0.93-1.08) H 09/19/17 12:30 APTT 32.1 Seconds (25.1-36.5) 09/05/17 06:30 Sodium 137 mmol/L (132-148) 09/12/17 07:20 Potassium 4.6 mmol/L (3.6-5.0) 09/12/17 07:20 Chloride 98 mmol/L (98-107) 09/12/17 07:20 Carbon Dioxide 31 mmol/L (21-33) 09/12/17 07:20 Anion Gap 12 (10-20) 09/12/17 07:20 BUN 39 mg/dL (7-21) H 09/12/17 07:20 Creatinine 1.2 mg/dl (0.7-1.2) 09/12/17 07:20 Est GFR ( Amer) 52 09/12/17 07:20 Est GFR (Non-Af Amer) 43 09/12/17 07:20 Random Glucose 91 mg/dL (70-110) 09/12/17 07:20 Uric Acid 4.8 mg/dL (2.5-6.2) 09/19/17 12:30 Calcium 8.4 mg/dL (8.4-10.5) 09/12/17 07:20 Phosphorus 3.4 mg/dL (2.5-4.5) 08/29/17 00:33 Magnesium 1.9 mg/dL (1.7-2.2) 09/09/17 07:30 Iron 73 ug/dL (45-180) 08/31/17 06:00 TIBC 216 ug/dL (265-497) L 08/31/17 06:00 % Saturation 34 % (20-55) 08/31/17 06:00 Ferritin 56.7 ng/mL 08/31/17 06:00 Total Bilirubin 0.4 mg/dL (0.2-1.3) 09/12/17 07:20 AST 40 U/L (14-36) H D 09/12/17 07:20 ALT 62 U/L (7-56) H 09/12/17 07:20 Alkaline Phosphatase 92 U/L (38-126) 09/12/17 07:20 Lactate Dehydrogenase 638 U/L (333-699) 08/29/17 00:33 Total Creatine Kinase 32 U/L (35-230) L 08/29/17 00:33 Troponin I 0.06 ng/mL 08/29/17 11:48 NT-Pro-B Natriuret Pep 4970 pg/mL (0-450) H 09/05/17 06:30 Total Protein 6.1 g/dL (5.8-8.3) 09/12/17 07:20 Albumin 3.1 g/dL (3.0-4.8) 09/12/17 07:20 Globulin 3.0 gm/dL 09/12/17 07:20 Albumin/Globulin Ratio 1.1 (1.1-1.8) 09/12/17 07:20 Procalcitonin 0.49 NG/ML (0.19-0.49) 08/29/17 07:06 Free T4 1.68 ng/dL (0.78-2.19) 08/29/17 08:30 TSH 3rd Generation 7.48 mIU/mL (0.46-4.68) H 08/29/17 08:30 Stool Occult Blood Negative (NEGATIVE) 09/02/17 12:50 - Hospital Course Hospital Course: Patient is an 87 yo F with PMH of chronic systolic CHF (EF 8%) s/p AICD on milrinone drip, atrial fibrillation on AC, hypothyroidism and gout presented to [facility] due to diffuse body aches. In the ED, patient was found to have a supratherapeutic INR and elevated BNP. She was admitted for evaluation and treatment for acute on chronic systolic CHF exacerbation, supratherapeutic INR on coumadin for atrial fibrillation, and acute gout attack. Patient seen was by orthopedics, who advised continued allopurinol, colchicine, and tapered prednisone for her gout. Patient's INR was monitored and coumadin was adjusted until therapeutic INR was achieved. Patient was continued on milrinone and guideline-directed home medications for CHF. Patient was diuresed with Lasix and Aldactone and was monitored according to her daily weights and I's and O's. Cardio was consulted, recommendations were appreciated. Nephrology was consulted due to decreased renal function, which was likely cardiorenal in nature. Lasix was adjusted by nephro as daily weights were not decreasing as expected. Electrolytes were monitored and repleted as necessary. Furthermore, during hospital course patient developed an acute episode of diarrhea. C. diff was negative and it was determined that diarrhea was likely secondary to colchicine. Colchicine was held and her diarrhea resolved. Physical therapy evaluated patient and recommended subacute rehab on discharge. Due to ongoing insurance, social work, and home conflicts patient's hospital course was prolonged. Today, the patient was seen and examined at bedside. No acute overnight events. Patient was accepted to [facility]. As patient is medically stable, she was [facility]. Patient will be continued on her medications as listed below. As patient's INR had been labile during hospital course, instructions were given to patient, nurse, and LTC to give 5 mg of Coumadin tonight, followed by alternating daily doses of 3 and 4 mg of Coumadin. Patient's INR will be monitored every other day until INR is stable and therapeutic. Patient was instructed to follow up with her PMD, shredder/granulator operator, orthopedist, and traffic observer within 1 week of discharge. Patient acknowledged and agreed with plan .Patient was discussed with all consultants who were in agreed with plan. Medications - Allopurinol 200 mg PO BID - Colchicine 0.6 mg PO as needed for gout - Digoxin 0.125 mg Q48H - Pepcid 20 mg PO HS - Lasix 40 mg daily and 20 mg HS - Imdur ER 30 mg daily - Levothyroxine 112 mcg PO daily - Losartan 25 mg PO daily - Toprol XL 25 mg BRK - Milrinone gtt - Aldactone 12.5 mg PO BID - Tramadol 50 mg PO q8h prn - Warfarin 5 mg once, then alternating 3 mg and 4 mg daily PO Discharge Exam - Head Exam Head Exam: ATRAUMATIC, NORMOCEPHALIC - Eye Exam Eye Exam: EOMI, Normal appearance, PERRL Pupil Exam: NORMAL ACCOMODATION, PERRL - ENT Exam ENT Exam: Mucous Membranes Moist - Neck Exam Neck exam: Full Rom - Respiratory Exam Respiratory Exam: Clear to PA & Lateral. absent: Rales, Rhonchi, Wheezes - Cardiovascular Exam Cardiovascular Exam: RRR. absent: Diastolic murmur, Gallop, Rubs, Systolic Murmur Additional comments: +s3 - GI/Abdominal Exam GI & Abdominal Exam: Soft. absent: Distended, Guarding, Rebound, Tenderness - Extremities Exam Extremities exam: pedal edema (+1) - Neurological Exam Neurological exam: Alert, CN II-XII Intact, Oriented x3 - Psychiatric Exam Psychiatric exam: Normal Affect, Normal Mood - Skin Skin Exam: Dry, Intact, Normal Color, Warm Discharge Plan - Discharge Medications Prescriptions: Colchicine 0.6 mg PO DAILY PRN #7 tablet PRN Reason: gout Digoxin 0.125 mg PO Q48H #7 tab Famotidine [Pepcid] 20 mg PO HS #14 tab Levothyroxine [Synthroid] 112 mcg PO DAILY #14 tab Losartan [Cozaar] 25 mg PO DAILY #14 tab Metoprolol Succinate XL [Toprol XL] 25 mg PO BRK #14 tab Milrinone 20mg/100ml D5W [Primacor 20mg/100ml D5W] 0.33 mcg IV CONT 30 Days bag Spironolactone 12.5 mg PO BID 14 Days #28 tablet Warfarin [Coumadin] 3 mg PO QOTHERDAY #7 tab Warfarin [Coumadin] 4 mg PO QOTHERDAY #7 tab - Follow Up Plan Condition: GOOD Disposition: TRANSF TO SNF Instructions: Gout, Lifestyle Changes to Manage Gout, Heart Failure With Reduced Ejection Fraction Additional Instructions: - TAKE 3 MG OF COUMADIN TOMORROW, THEN 4 MG THE DAY AFTER. ALTERNATE BETWEEN 3 AND 4 MG OF COUMADIN PER DAY. - DRAW INR EVERY OTHER DAY UNTIL CONSISTENTLY THERAPEUTIC - Please resume medications - Follow up with primary care doctor Dr Green in 1 week, for INR level - Follow up with [facility] Dr Alcantara in 1 week - Follow up with orthopedics Dr Hope in 1 week. - Follow up with Nephrology (kidney doctor) Dr. Marcum in 1 week - Return to ER for any concerns. Referrals: Zander Hope MD [Staff Provider] - Juan Jose Alcantara MD [Staff Provider] - Otoniel Marcum MD [Staff Provider] - Boaz Green MD [Primary Care Provider] - <TusharLeeanne R - Last Filed: 09/20/17 14:36> Provider - Provider Date of Admission: 08/29/17 01:36 Attending physician: Marvin Guerrero MD Primary care physician: Boaz Green MD Hospital Course - Lab Results Lab Results: Micro Results 09/02/17 12:30 Stool C. difficile Antigen & Toxin A,B (M - Final 08/29/17 06:40 Blood Blood Culture - Final NO GROWTH AFTER 5 DAYS 09/01/17 12:00 Urine Urine Culture - Final No Growth (<1,000 CFU/ML) Most Recent Lab Values WBC 7.9 10^3/ul (4.5-11.0) D 09/19/17 12:30 RBC 3.47 10^6/uL (3.5-6.1) L 09/19/17 12:30 Hgb 10.7 g/dL (12.0-16.0) L 09/19/17 12:30 Hct 32.4 % (36.0-48.0) L 09/19/17 12:30 MCV 93.4 fl (80.0-105.0) 09/19/17 12:30 MCH 30.8 pg (25.0-35.0) 09/19/17 12:30 MCHC 33.0 g/dl (31.0-37.0) 09/19/17 12:30 RDW 16.5 % (11.5-14.5) H 09/19/17 12:30 Plt Count 157 10^3/uL (120.0-450.0) 09/19/17 12:30 MPV 9.6 fl (7.0-11.0) 09/19/17 12:30 Gran % 64.9 % (50.0-68.0) 09/19/17 12:30 Lymph % (Auto) 26.0 % (22.0-35.0) 09/19/17 12:30 Hudson % (Auto) 4.9 % (1.0-6.0) 09/19/17 12:30 Eos % (Auto) 3.9 % (1.5-5.0) 09/19/17 12:30 Baso % (Auto) 0.3 % (0.0-3.0) 09/19/17 12:30 Gran # 5.15 (1.4-6.5) 09/19/17 12:30 Lymph # (Auto) 2.1 (1.2-3.4) 09/19/17 12:30 Hudson # (Auto) 0.4 (0.1-0.6) 09/19/17 12:30 Eos # (Auto) 0.3 (0.0-0.7) 09/19/17 12:30 Baso # (Auto) 0.02 K/mm3 (0.0-2.0) 09/19/17 12:30 PT 20.1 SECONDS (9.4-12.5) H 09/19/17 12:30 INR 1.73 (0.93-1.08) H 09/19/17 12:30 APTT 32.1 Seconds (25.1-36.5) 09/05/17 06:30 Sodium 137 mmol/L (132-148) 09/12/17 07:20 Potassium 4.6 mmol/L (3.6-5.0) 09/12/17 07:20 Chloride 98 mmol/L (98-107) 09/12/17 07:20 Carbon Dioxide 31 mmol/L (21-33) 09/12/17 07:20 Anion Gap 12 (10-20) 09/12/17 07:20 BUN 39 mg/dL (7-21) H 09/12/17 07:20 Creatinine 1.2 mg/dl (0.7-1.2) 09/12/17 07:20 Est GFR ( Amer) 52 09/12/17 07:20 Est GFR (Non-Af Amer) 43 09/12/17 07:20 Random Glucose 91 mg/dL (70-110) 09/12/17 07:20 Uric Acid 4.8 mg/dL (2.5-6.2) 09/19/17 12:30 Calcium 8.4 mg/dL (8.4-10.5) 09/12/17 07:20 Phosphorus 3.4 mg/dL (2.5-4.5) 08/29/17 00:33 Magnesium 1.9 mg/dL (1.7-2.2) 09/09/17 07:30 Iron 73 ug/dL (45-180) 08/31/17 06:00 TIBC 216 ug/dL (265-497) L 08/31/17 06:00 % Saturation 34 % (20-55) 08/31/17 06:00 Ferritin 56.7 ng/mL 08/31/17 06:00 Total Bilirubin 0.4 mg/dL (0.2-1.3) 09/12/17 07:20 AST 40 U/L (14-36) H D 09/12/17 07:20 ALT 62 U/L (7-56) H 09/12/17 07:20 Alkaline Phosphatase 92 U/L (38-126) 09/12/17 07:20 Lactate Dehydrogenase 638 U/L (333-699) 08/29/17 00:33 Total Creatine Kinase 32 U/L (35-230) L 08/29/17 00:33 Troponin I 0.06 ng/mL 08/29/17 11:48 NT-Pro-B Natriuret Pep 4970 pg/mL (0-450) H 09/05/17 06:30 Total Protein 6.1 g/dL (5.8-8.3) 09/12/17 07:20 Albumin 3.1 g/dL (3.0-4.8) 09/12/17 07:20 Globulin 3.0 gm/dL 09/12/17 07:20 Albumin/Globulin Ratio 1.1 (1.1-1.8) 09/12/17 07:20 Procalcitonin 0.49 NG/ML (0.19-0.49) 08/29/17 07:06 Free T4 1.68 ng/dL (0.78-2.19) 08/29/17 08:30 TSH 3rd Generation 7.48 mIU/mL (0.46-4.68) H 08/29/17 08:30 Stool Occult Blood Negative (NEGATIVE) 09/02/17 12:50 Attending/Attestation - Attestation I have personally seen and examined this patient.: Yes I have fully participated in the care of the patient.: Yes I have reviewed all pertinent clinical information, including history, physical exam and plan: Yes Notes (Text): Patient seen and examined by me with resident at 11:50AM 09/19/17. Case including discharge plan discussed with resident. Agree with above with following additions/corrections. Patientis a 87-year old female with past medical history significant for CHF status post ICD on milrinone drip, atrial fibrillation, hypothyroidism, and gout that presented to the emergency room with diffuse body aches as well as shortness of breath. Please see dictated H&P for further details. Patient was admitted with diffuse arthralgias, myalgias, elevated BNP, DAPHNE, indeterminate troponin, and CHF. Cardiology and nephrology were consulted. Patient has CKD 3. Was also found to have hyperurecemia. Patient was also evaluated by orthopedics and was found to have acute gout exacerbation. Patient was also found to have lower extremity edema and was treated for acute on chronic CHF exacerbation. Patient was continued on home IV milrinone, digoxin, cozaar, metoprolol, isosorbide mononitrate, and was maintained on Lasix. Patient was treated with allopurinol, colchicine and steroids for gout. Patient was also found to have supratherapeutic INR on admission. Coumadin was adjusted. Patient did develop diarrhea. C-diff was ruled out. Diarrhea likely secondary to colchicine and did resolve. Patient was found to have DAPNHE on CKD, likely cardiorenal in etiology. This did improved with continued diuresis. Patient was also found to have leukocytosis which was likely secondary to steroids and did resolve. Patient also had elevated LFTs likely secondary to hepatic congestion likely secondary to CHF. This did improve. Chest xray showed severe cardiomegaly and moderate vascular congestion, nothing acute. Repeat xray did not show any changes. Patient's acute CHF exacerbation improved. Leg swelling resolved. Myalgias and arthralgias resolved. Patient was doing well with physical therapy. All symptoms improved. Patient was cleared for discharge by all consultants. Patient was [facility] to [facility]. Physical exam: Gen: Awake and alert sitting up in chair in no acute distress HEENT: Normocephalic, atraumatic, extraocular muscles intact, pupils equal reactive, oropharynx is pink and moist, no pharyngeal erythema or exudate appreciated, neck is supple. Cardiovascular: Irregular rhythm, no murmurs or rubs appreciated, positive S3. No lower extremity edema appreciated. Pulmonary: Normal respiratory effort. No rhonchi, rales or wheezing appreciated. Gastrointestinal: Soft, nontender, nondistended, positive bowel sounds all 4 quadrants, no guarding Musculoskeletal: Moves all extremities, no calf tenderness Central nervous system: AAO 3 Dermatologic: Skin warm and dry Please see chart for full details. Follow up instructions. Patient to follow-up with primary care doctor within 1 week. Patient to follow-up with shredder/granulator operator Dr. Alcantara within 1 week. Patient to follow-up with orthopedics Dr. Hope within 1 week. Patient to follow-up with nephrology Dr. Marcum within 1 week. Patient to alternate between 3m and 4mg of coumadin. Patient to have INR drawn every other day until consistently therapeutic. All instructions explained to patient at bedside in detail. Patient also given written instructions. Patient both understands and agrees to all instructions. Time spent in discharging the patient including chart review, medication reconciliation, discussion with the patient, patient's at bedside, nuclear medical tech, consultants, and nursing staff was approximately 45 minutes.
[2017-09-19 15:10] VITALS: BP 108/49; PULSE 70; TEMP 98
== END 2017-09-19 22:31 | DRG 291 ==
LOC: ED 22:32 → ERH 08-29 01:36 → 2RNO 08-29 03:29 → 5RSO 09-04 13:04
PROVIDERS: ADMIT Internal Medicine; ATTEND Internal Medicine
DX: I13.0 Hypertensive heart and chronic kidney disease with heart failure and stage 1 through stage 4 chronic kidney disease, or unspecified chronic kidney disease (principal); I50.23 Acute on chronic systolic (congestive) heart failure; E87.3 Alkalosis; N17.9 Acute kidney failure, unspecified; I48.2 Chronic atrial fibrillation; N18.3 Chronic kidney disease, stage 3 (moderate); D64.9 Anemia, unspecified; D72.829 Elevated white blood cell count, unspecified; E03.9 Hypothyroidism, unspecified; E87.5 Hyperkalemia; I08.1 Rheumatic disorders of both mitral and tricuspid valves; I25.10 Atherosclerotic heart disease of native coronary artery without angina pectoris; I27.20 Pulmonary hypertension, unspecified; I42.0 Dilated cardiomyopathy; J44.9 Chronic obstructive pulmonary disease, unspecified; K21.9 Gastro-esophageal reflux disease without esophagitis; K25.9 Gastric ulcer, unspecified as acute or chronic, without hemorrhage or perforation; K76.1 Chronic passive congestion of liver; M10.9 Gout, unspecified; M17.12 Unilateral primary osteoarthritis, left knee; M19.039 Primary osteoarthritis, unspecified wrist; R79.1 Abnormal coagulation profile; T45.515A Adverse effect of anticoagulants, initial encounter; L89.152 Pressure ulcer of sacral region, stage 2; Z51.5 Encounter for palliative care; Z66 Do not resuscitate; Z79.01 Long term (current) use of anticoagulants; Z79.899 Other long term (current) drug therapy; Z82.49 Family history of ischemic heart disease and other diseases of the circulatory system; Z86.73 Personal history of transient ischemic attack (TIA), and cerebral infarction without residual deficits; Z86.79 Personal history of other diseases of the circulatory system; Z87.11 Personal history of peptic ulcer disease; Z87.891 Personal history of nicotine dependence; Z90.49 Acquired absence of other specified parts of digestive tract; Z95.810 Presence of automatic (implantable) cardiac defibrillator

== ENCOUNTER 2018-01-06 16:39 | Inpatient (IN) | payer MEDICARE, SELFPAY ==
[2018-01-06 16:57] VITALS: BMI 27.3
[2018-01-06] MEDS ORDERED: Milrinone 20mg/100ml D5W 100 ML IV STA (17:18)
--- NOTE | 2018-01-06 17:25 | ED PDOC ---
Arrival/HPI - General Chief Complaint: Med Refill Time Seen by Provider: 01/06/18 16:41 - History of Present Illness Narrative History of Present Illness (Text): 01/06/18 17:28 87 year old female w/ PMH of heart failure, presents to the emergency depart ment for medication refill. She reports she was previously in [facility] for the past 3 months on a milrinone drip with repeated refills per her jewelry maker, Dr. Maria. The patient states she was discharged from rehab with accommodations but had a recent insurance change leaving her unable to obtain a refill of her milrinone drip. Earlier today, patient noticed her machine was malfunctioning. She denies any fever, chills, shortness of breath, chest pain, diarrhea, nausea, vomiting, urinary symptoms, back pain, neck pain, headache, dizziness, or any other complaints. PMD: Dr. Green Time/Duration: Other (earlier today) Symptom Onset: Gradual Symptom Course: Unchanged Activities at Onset: Light Context: Home Past Medical History - Provider Review Nursing Documentation Reviewed: Yes - Travel History Have you recently traveled outside [place] w/in the past 3 mons?: No - Infectious Disease Hx of Infectious Diseases: None - Tetanus Immunization Tetanus Immunization: Unknown - Cardiac Hx Congestive Heart Failure: Yes - Pulmonary Hx Chronic Obstructive Pulmonary Disease (COPD): Yes - Neurological HX Cerebrovascular Accident: Yes - HEENT Hx HEENT Disorder: Yes Hx Cataracts: Yes - Renal Hx Renal Disorder: No - Endocrine/Metabolic Hx Hypothyroidism: Yes - Hematological/Oncological Hx Blood Disorders: No - Integumentary Hx Dermatological Disorder: Yes (b/l pedal edema) - Musculoskeletal/Rheumatological Hx Falls: Yes - Gastrointestinal Hx Gastrointestinal Disorders: Yes (CHOLECYSTECTOMY,HERNIORHAPPHY) - Genitourinary/Gynecological Hx Reproductive Disorders: No - Psychiatric Hx Emotional Abuse: No Hx Physical Abuse: No Hx Substance Use: No - Surgical History Hx Cholecystectomy: Yes Other/Comment: R chest port - Anesthesia Hx Anesthesia: Yes Hx Anesthesia Reactions: No Hx Malignant Hyperthermia: No - Suicidal Assessment Feels Threatened In Home Enviroment: No Family/Social History - Physician Review Nursing Documentation Reviewed: Yes Family/Social History: Unknown Family HX Smoking Status: Former Smoker Hx Alcohol Use: No Hx Substance Use: No Allergies/Home Meds Allergies/Adverse Reactions: Allergies codeine Allergy (Verified 08/28/17 22:47) SHORTNESS OF BREATH Penicillins Allergy (Verified 08/28/17 22:47) RASH Review of Systems - Physician Review All systems were reviewed & negative as marked: Yes - Review of Systems Constitutional: absent: Fevers, Night Sweats Respiratory: absent: SOB Cardiovascular: absent: Chest Pain Gastrointestinal: absent: Diarrhea, Nausea, Vomiting Genitourinary Female: absent: Urine Output Changes Musculoskeletal: absent: Back Pain, Neck Pain Neurological: absent: Headache, Dizziness Physical Exam Vital Signs Reviewed: Yes Temperature: Afebrile Blood Pressure: Normal Pulse: Regular Respiratory Rate: Normal Appearance: Positive for: Well-Appearing, Non-Toxic, Comfortable Pain Distress: None Mental Status: Positive for: Alert and Oriented X 3 - Systems Exam Head: Present: Atraumatic, Normocephalic Pupils: Present: PERRL Extroacular Muscles: Present: EOMI Conjunctiva: Present: Normal Mouth: Present: Moist Mucous Membranes Neck: Present: Normal Range of Motion Respiratory/Chest: Present: Clear to Auscultation, Good Air Exchange. No: Respiratory Distress, Accessory Muscle Use Cardiovascular: Present: Regular Rate and Rhythm, Normal S1, S2. No: Murmurs Abdomen: No: Tenderness, Distention, Peritoneal Signs Back: Present: Normal Inspection Upper Extremity: Present: Normal Inspection. No: Cyanosis, Edema Lower Extremity: Present: Normal Inspection. No: Edema Neurological: Present: GCS=15, CN II-XII Intact, Speech Normal Skin: Present: Warm, Dry, Normal Color. No: Rashes Psychiatric: Present: Alert, Oriented x 3, Normal Insight, Normal Concentration Medical Decision Making ED Course and Treatment: 01/06/18 17:30 Impression: 87 year old female presenting to the emergency room for medication refill. Plan: -- Labs -- CBC -- Chest X-ray -- Milrinone -- Reassess and disposition Prior Visits: Notes and results from previous visits were reviewed. Progress Notes: 01/06/18 19:00 Spoke to Sumit(social media senior associate) who states [facility] made an error in setting up continous care at home for the patient to receive the refillable drip. Patient will have to stay for admission and have Dr. Alcantara(cardiology) formally evaluate her for a prescription refill. Patient and family updated on plan and are in agreement. Call placed to pediatric medical assistant. 01/06/18 19:11 Case discussed with pediatric medical assistant who accepts case on behalf of Dr. Huntley (portrait artist). - RAD Interpretation Narrative RAD Interpretations (Text): 01/06/18 18:00 Procedure: Chest X-ray Impression: No active disease. Dictator: Ben Borges MD Radiology Orders: 01/06/18 17:23 CHEST PORTABLE [RAD] Stat Stakeholder Manager: Radiologist - Medication Orders Current Medication Orders: Milrinone Lactate/Dextrose (Primacor 20mg/100ml D5w) 100 mls @ 8.369 mls/hr IV .[id number] STA; Protocol Stop: 01/07/18 05:14 - Scribe Statement The provider has reviewed the documentation as recorded by the Shaila Vuong All medical record entries made by the Scribe were at my direction and personally dictated by me. I have reviewed the chart and agree that the record accurately reflects my personal performance of the history, physical exam, medical decision making, and the department course for this patient. I have also personally directed, reviewed, and agree with the discharge instructions and disposition. Disposition/Present on Arrival - Present on Arrival Any Indicators Present on Arrival: No History of DVT/PE: No History of Uncontrolled Diabetes: No Urinary Catheter: No History of Decub. Ulcer: No History Surgical Site Infection Following: None - Disposition Have Diagnosis and Disposition been Completed?: Yes Diagnosis: Encounter for medication refill Disposition: HOSPITALIZED Disposition Time: 21:00 Patient Plan: Observation Condition: STABLE
--- NOTE | 2018-01-06 17:43 | RAD ---
Date of service: 01/06/2018 HISTORY: hypotension COMPARISON: Chest radiograph dated 09/07/2017. FINDINGS: LUNGS: No active pulmonary disease. PLEURA: No significant pleural effusion identified, no pneumothorax apparent. CARDIOVASCULAR: Left subclavian access AICD/pacemaker redemonstrated. Aortic atherosclerotic calcifications. Cardiomediastinal silhouette stably enlarged. OSSEOUS STRUCTURES: Unchanged. VISUALIZED UPPER ABDOMEN: Normal. OTHER FINDINGS: Right internal jugular access chest port with tip in the SVC. IMPRESSION: No active disease.
[2018-01-06 18:48] LABS: BASO # 0.06 K/mm3 (0.0-2.0); BASO % 0.8 % (0.0-3.0); EOS # 0.2 (0.0-0.7); EOS % 3.1 % (1.5-5.0); GRAN # 4.3 (1.4-6.5); HEMOGLOBIN 10.4 g/dL (12.0-16.0); LYMPH # 2.2 (1.2-3.4); LYMPH % 29.2 % (22.0-35.0); MEAN CELL VOLUME 94.7 fl (80.0-105.0); MEAN CORPUSCULAR HEMOGLOBIN 30.6 pg (25.0-35.0); MEAN CORPUSCULAR HGB CONC 32.3 g/dl (31.0-37.0); MEAN PLATELET VOLUME 10.3 fl (7.0-11.0); MONO # 0.7 (0.1-0.6); MONO % 8.9 % (1.0-6.0); RBC 3.4 10^6/uL (3.5-6.1); RED CELL DISTRIBUTION WIDTH 15.5 % (11.5-14.5); WHITE BLOOD COUNT 7.4 10^3/uL (4.5-11.0)
[2018-01-06 18:58] LABS: ALB/GLOB RATIO 1.1 (1.1-1.8); ALBUMIN 3.7 g/dL (3.0-4.8); CALCIUM 9.7 mg/dL (8.4-10.5); URIC ACID 4.1 mg/dL (2.5-6.2)
[2018-01-06] MEDS ORDERED: Primacor 1 mg/ml Inj (10 ml) IV SCH (19:00)
[2018-01-06 19:08] LABS: TROPONIN I 0.06 ng/mL
[2018-01-06] MEDS ORDERED: MILRINONE IV SCH (19:15)
[2018-01-06] MEDS ORDERED: WATER IV SCH (19:15)
[2018-01-06] MEDS ORDERED: DEXTROSE 5% IV SCH (19:15)
[2018-01-06] MEDS: WATER IV SCH (19:55)
[2018-01-06] MEDS: DEXTROSE 5% IV SCH (19:55)
[2018-01-06] MEDS: MILRINONE IV SCH (19:55)
[2018-01-06 20:06] LABS: URINE BILIRUBIN NEGATIVE (NEGATIVE); URINE BLOOD TRACE-INTACT (NEGATIVE); URINE GLUCOSE (UA) NEGATIVE (NEGATIVE); URINE LEUKOCYTE ESTERASE LARGE Leu/uL (NEGATIVE); URINE PROTEIN NEGATIVE mg/dL (<30 mg/dL); URINE UROBILINOGEN 0.2 E.U./dL (<1 E.U./dL)
[2018-01-06 20:07] LABS: URINE APPEARANCE CLEAR (CLEAR); URINE COLOR LIGHT YELLOW (YELLOW)
[2018-01-06 20:14] LABS: URINE RBC 0 - 2 /hpf (0-2)
[2018-01-06 20:15] LABS: URINE BACTERIA TRACE (NEG)
--- NOTE | 2018-01-06 20:33 | CP.PCM.HP ---
History of Present Illness - History of Present Illness History of Present Illness: PGY-3 H&P for hospitalist service 87 yo female with PMH of systolic heart failure with AICD and on milrinone drip, Atrial fibrillation, hypothyroidism, gout, arthritis presented to the emergency department for medication refill. Patient states that she was previously in [facility] for the past 3 months on a milrinone drip with repeated refills per her unarmed security officer, Dr. Alcantara. Patient reports that she was discharged from rehab with accommodations for her milirone drip but had a recent insurance change leaving her unable to obtain a refill the medication. Earlier today she also noticed her machine was malfunctioning. Patient denies any fever, chills, shortness of breath, chest pain, diarrhea, nausea, vomiting, urinary symptoms, back pain, neck pain, headache, dizziness. Her only complaint is pain from her chronic arthritis. 12 point ROS negative excerpt as stated. PMD: Boaz Viera PMH: systolic heart failure with ICD and on milrinone drip, Atrial fibrillation, hypothyroidism, gout, arthritis PSH: laminectomy, cholecystectomy, hernia repair, icd placement Allergies: Codeine (dyspnea), penicillin (rash) Social history: Former smoker (quit in 1990), denies illicit drug use or alcohol Family history: heart disease father Present on Admission - Present on Admission Any Indicators Present on Admission: No Review of Systems - Review of Systems All systems: reviewed and no additional remarkable complaints except Past Patient History - Infectious Disease Hx of Infectious Diseases: None - Tetanus Immunizations Tetanus Immunization: Unknown - Past Medical History & Family History Past Medical History?: Yes - Past Social History Smoking Status: Former Smoker - CARDIAC Hx Congestive Heart Failure: Yes - PULMONARY Hx Chronic Obstructive Pulmonary Disease (COPD): Yes - NEUROLOGICAL HX Cerebrovascular Accident: Yes - HEENT Hx HEENT Problems: Yes Hx Cataracts: Yes - RENAL Hx Chronic Kidney Disease: No - ENDOCRINE/METABOLIC Hx Hypothyroidism: Yes - HEMATOLOGICAL/ONCOLOGICAL Hx Blood Disorders: No - INTEGUMENTARY Hx Dermatological Problems: Yes (b/l pedal edema) - MUSCULOSKELETAL/RHEUMATOLOGICAL Hx Falls: Yes - GASTROINTESTINAL Hx Gastrointestinal Disorders: Yes (CHOLECYSTECTOMY,HERNIORHAPPHY) - GENITOURINARY/GYNECOLOGICAL Hx Reproductive Disorders: No - PSYCHIATRIC Hx Emotional Abuse: No Hx Physical Abuse: No Hx Substance Use: No - SURGICAL HISTORY Hx Cholecystectomy: Yes Other/Comment: R chest port - ANESTHESIA Hx Anesthesia: Yes Hx Anesthesia Reactions: No Hx Malignant Hyperthermia: No Meds Allergies/Adverse Reactions: Allergies Allergy/AdvReac Type Severity Reaction Status Date / Time codeine Allergy SHORTNESS Verified 08/28/17 22:47 OF BREATH Penicillins Allergy RASH Verified 08/28/17 22:47 Physical Exam - Constitutional Appears: Well, No Acute Distress - Head Exam Head Exam: ATRAUMATIC, NORMAL INSPECTION, NORMOCEPHALIC - Eye Exam Eye Exam: EOMI, Normal appearance. absent: Conjunctival injection, Periorbital swelling, Periorbital tenderness, Scleral icterus - ENT Exam ENT Exam: Mucous Membranes Moist, Normal External Ear Exam. absent: Mucous Membranes Dry - Respiratory Exam Respiratory Exam: Clear to Auscultation Bilateral, NORMAL BREATHING PATTERN. absent: Accessory Muscle Use, Chest Wall Tenderness, Decreased Breath Sounds, Rales, Rhonchi, Wheezes, Respiratory Distress - Cardiovascular Exam Cardiovascular Exam: REGULAR RHYTHM, RRR. absent: Bradycardia, Tachycardia, Diastolic murmur, Systolic Murmur - GI/Abdominal Exam GI & Abdominal Exam: Normal Bowel Sounds, Soft. absent: Diminished Bowel Sounds, Distended, Firm, Guarding, Tenderness - Extremities Exam Extremities exam: Positive for: normal inspection. Negative for: calf tenderness, pedal edema, tenderness - Neurological Exam Neurological exam: Alert, CN II-XII Intact, Oriented x3 - Psychiatric Exam Psychiatric exam: Normal Affect, Normal Mood - Skin Skin Exam: Dry, Intact, Normal Color, Warm Results - Vital Signs Recent Vital Signs: Last Vital Signs Temp 97.7 F 01/06/18 17:40 Pulse 70 01/06/18 20:15 Resp 18 01/06/18 20:15 BP 135/59 L 01/06/18 20:15 Pulse Ox 96 01/06/18 20:15 - Labs Result Diagrams: 01/06/18 18:30 01/06/18 18:30 Labs: Laboratory Results - last 24 hr 01/06/18 01/06/18 01/06/18 18:30 18:30 20:00 WBC 7.4 RBC 3.40 L Hgb 10.4 L Hct 32.2 L MCV 94.7 MCH 30.6 MCHC 32.3 RDW 15.5 H Plt Count 197 MPV 10.3 Gran % 58.0 Lymph % (Auto) 29.2 Bee % (Auto) 8.9 H Eos % (Auto) 3.1 Baso % (Auto) 0.8 Gran # 4.30 Lymph # (Auto) 2.2 Bee # (Auto) 0.7 H Eos # (Auto) 0.2 Baso # (Auto) 0.06 Sodium 135 Potassium 4.9 Chloride 100 Carbon Dioxide 27 Anion Gap 14 BUN 46 H Creatinine 1.5 H Est GFR ( Amer) 40 Est GFR (Non-Af Amer) 33 Random Glucose 96 Uric Acid 4.1 Calcium 9.7 Total Bilirubin 1.5 H AST 41 H ALT 38 Alkaline Phosphatase 153 H D Troponin I 0.06 NT-Pro-B Natriuret Pep 3280 H Total Protein 7.2 Albumin 3.7 Globulin 3.4 Albumin/Globulin Ratio 1.1 Urine Color Light yellow Urine Appearance Clear Urine pH 6.0 Ur Specific Franklin 1.015 Urine Protein Negative Urine Glucose (UA) Negative Urine Ketones Negative Urine Blood Trace-intact H Urine Nitrate Negative Urine Bilirubin Negative Urine Urobilinogen 0.2 Ur Leukocyte Esterase Large H Urine RBC 0 - 2 Urine WBC 5 - 10 Ur Epithelial Cells None Urine Bacteria Trace Assessment & Plan - Assessment and Plan (Free Text) Assessment: 87 yo female with PMH of systolic heart failure with AICD and on milrinone drip, Atrial fibrillation, hypothyroidism, gout, arthritis presented to the emergency department for refill and malfunction of milrinone drip. Plan: systolic heart failure with ICD and on milrinone drip - patient started on milirone drip - ED spoke with case management social worker who stated [facility] made an error in setting up continuous care at home for the patient to receive the refillable drip. - Will have unarmed security officer, Dr. Alcantara evaluate her for a prescription refill. - continue all other cardiac medication including digoxin, imdur, toprol, cozaar, lasix, spironolactone - will follow up electrolytes, hgb a1c DAPHNE, elevated creatinine - most likely pre- renal due to cardiac - will repeat in AM a. fib - rate controlled - continue toprol and warfarin - will get INR in AM gout - continue home medications, Allopurinol and Colchicine hypothyriodism - continue synthriod - will check TSH and free t4 in am case seen and discussed with attending
[2018-01-07 07:14] LABS: INR 1.12; PARTIAL THROMBOPLASTIN TIME 28.4 Seconds (25.1-36.5); PROTHROMBIN TIME 12.9 SECONDS (9.4-12.5)
[2018-01-07 07:16] LABS: CALCIUM 9.4 mg/dL (8.4-10.5); HEMOGLOBIN 10.1 g/dL (12.0-16.0); MEAN CELL VOLUME 94.8 fl (80.0-105.0); MEAN CORPUSCULAR HEMOGLOBIN 30.6 pg (25.0-35.0); MEAN CORPUSCULAR HGB CONC 32.3 g/dl (31.0-37.0); MEAN PLATELET VOLUME 10.3 fl (7.0-11.0); RBC 3.3 10^6/uL (3.5-6.1); RED CELL DISTRIBUTION WIDTH 15.4 % (11.5-14.5); WHITE BLOOD COUNT 6.7 10^3/uL (4.5-11.0)
[2018-01-07 07:32] LABS: FREE T4 1.52 ng/dL (0.78-2.19)
[2018-01-07] MEDS: Metoprolol Succinate 25 mg XL Tab PO SCH (08:31)
[2018-01-07] MEDS: Levothyroxine 112 MCG TAB PO SCH (08:31)
--- NOTE | 2018-01-07 10:15 | CON ---
DATE: 01/07/2018 REQUESTING PHYSICIAN: Dr. Guerrero. REASON FOR CONSULTATION: Congestive heart failure. HISTORY AND PRESENT ILLNESS: This is an 87-year-old woman known to us with a history of dilated cardiomyopathy, severe LV dysfunction, recurrent heart failure, prior ICD implant and a history of atrial fibrillation who was recently discharged from a subacute facility. There appears to have been some difficulty with renewing her milrinone infusion upon discharge, possibly because of insurance issues. She presents to the emergency room with some dyspnea and concerns about being maintained off milrinone. She is on chronic milrinone therapy for a number of years. She denies any chest pain. She has had no recent edema. PAST MEDICAL HISTORY: Her past medical history is notable for the problems mentioned above. She has a history of prior cholecystectomy, laminectomy and herniorrhaphy. She has undergone prior ICD implant. SOCIAL HISTORY: She is a former smoker. She denies alcohol use. ALLERGIES: SHE HAS HAD A REACTION TO PENICILLIN WELL CODEINE IN THE PAST. FAMILY HISTORY: Both parents from age-related illness and probably did have some premature heart disease. REVIEW OF SYSTEMS: A 10-point review of systems is notable mainly for the problems mentioned above. She is in the process of arranging for a move to her stay with her daughter in [place] for long-term care. PHYSICAL EXAMINATION: GENERAL: She is a very elderly woman who appears comfortable at rest at the present time. VITAL SIGNS: Her blood pressure is 120/50 with a pulse of 70 in ventricular pacing, respirations of 16, she is afebrile. HEENT: No JVD noted. CHEST: A few scattered rhonchi are heard. HEART: PMI is displaced laterally, soft tones are present. Systolic murmurs are present in lower left sternal border of the apex. ABDOMEN: Soft and nontender with bowel sounds. EXTREMITIES: Trace ankle edema. DIAGNOSTIC DATA: Potassium 4.9, BUN and creatinine are 41 and 1.5. White count 6.7, hemoglobin and hematocrit 10.1 and 31.3 with a platelet count of 198,000. INR is 1.12 and troponin is 0.06. BNP is 3280. IMPRESSION: 1. Chronic heart failure, currently with class II to III symptoms, systolic in nature. 2. Paroxysmal atrial fibrillation. 3. Status post implantable cardioverter-defibrillator implant. 4. Mitral and tricuspid regurgitation. 5. Rest of problems as noted. RECOMMENDATIONS: Prior medications will be resumed including spirolactone, warfarin, losartan, digoxin, isosorbide, Lasix as well as her milrinone infusion. Arrangements will be made through the Adult Probation Officer to clarify her prescription issues. Once home infusion has been reestablished, discharge would be appropriate. Thank you for this consultation. Dino Thompson MD
--- NOTE | 2018-01-07 11:42 | CP.PCM.PN ---
<Delicia Burciaga - Last Filed: 01/07/18 12:46> Subjective - Date & Time of Evaluation Date of Evaluation: 01/07/18 Time of Evaluation: 11:41 - Subjective Subjective: Delicia Burciaga, PGY1, Medicine Progress Note for Dr Guerrero: Patient seen and examined at bedside. Patient had 7 beats on V tach overnight. Denies leg swelling, chest pain, sob, cough, fevers, chills, nausea, vomiting. States that she would like to go home. However, discussed with patient that she would need to wait till Tuesday for arrangement of her milrinone drip to be started at home. Patient verbalized understanding. Objective - Vital Signs/Intake and Output Vital Signs (last 24 hours): Temp Pulse Resp BP Pulse Ox 97.9 F 70 18 120/49 L 100 01/07/18 06:00 01/07/18 10:00 01/07/18 06:00 01/07/18 09:39 01/07/18 06:00 Intake and Output: 01/07/18 01/07/18 06:59 18:59 Intake Total 200 Output Total 200 Balance 0 - Medications Medications: Current Medications Acetaminophen (Tylenol 325mg Tab) 650 mg PO Q6H PRN PRN Reason: Fever >100.4 F Last Admin: 01/06/18 22:42 Dose: 650 mg Allopurinol (Zyloprim) 200 mg PO BID [facility] Last Admin: 01/07/18 09:39 Dose: 200 mg Colchicine (Colocrys) 0.6 mg PO DAILY [facility] Last Admin: 01/07/18 09:40 Dose: 0.6 mg Digoxin (Digoxin) 0.125 mg PO Q48H [facility] Famotidine (Pepcid) 20 mg PO HS [facility] Last Admin: 01/06/18 22:38 Dose: 20 mg Furosemide (Lasix) 40 mg PO DAILY [facility] Last Admin: 01/07/18 09:39 Dose: 40 mg Milrinone Lactate/Dextrose 40 (mg/ Dextrose) 200 mls @ 7 mls/hr IV .Q24H [facility] Last Admin: 01/06/18 19:55 Dose: 7 mls/hr Isosorbide Mononitrate (Imdur Er) 30 mg PO DAILY [facility] Last Admin: 01/07/18 09:38 Dose: 30 mg Levothyroxine Sodium (Synthroid) 112 mcg PO ACB [facility] Last Admin: 01/07/18 08:31 Dose: 112 mcg Losartan Potassium (Cozaar) 25 mg PO DAILY [facility] Last Admin: 01/07/18 09:38 Dose: 25 mg Metoprolol Succinate (Toprol Xl) 25 mg PO BRK [facility] Last Admin: 01/07/18 08:31 Dose: 25 mg Spironolactone (Aldactone) 12.5 mg PO BID [facility] Last Admin: 01/07/18 09:39 Dose: 12.5 mg Warfarin Sodium (Coumadin) 3 mg PO Q48H [facility]; Protocol Warfarin Sodium (Coumadin) 4 mg PO Q48H [facility] - Labs Labs: 01/07/18 06:00 01/07/18 06:00 PT 12.9 SECONDS (9.4-12.5) H 01/07/18 06:00 INR 1.12 01/07/18 06:00 APTT 28.4 Seconds (25.1-36.5) 01/07/18 06:00 - Constitutional Appears: Non-toxic, No Acute Distress - Head Exam Head Exam: ATRAUMATIC, NORMOCEPHALIC - Eye Exam Eye Exam: EOMI, PERRL. absent: Conjunctival injection, Nystagmus, Scleral icterus Pupil Exam: NORMAL ACCOMODATION, PERRL. absent: Fixed, Irregular, Miosis, Unequal - ENT Exam ENT Exam: Mucous Membranes Moist - Neck Exam Neck Exam: Full ROM, Normal Inspection - Respiratory Exam Respiratory Exam: Clear to Ausculation Bilateral, NORMAL BREATHING PATTERN. absent: Accessory Muscle Use, Rhonchi, Wheezes, Respiratory Distress - Cardiovascular Exam Cardiovascular Exam: Murmur (systolic murmur) Additional comments: ventricular paced rhythm - GI/Abdominal Exam GI & Abdominal Exam: Soft, Normal Bowel Sounds. absent: Guarding, Rigid, Tenderness, Mass, Organomegaly, Rebound - Extremities Exam Extremities Exam: Normal Inspection. absent: Calf Tenderness, Pedal Edema - Back Exam Back Exam: NORMAL INSPECTION. absent: CVA tenderness (L), CVA tenderness (R) - Neurological Exam Neurological Exam: Alert, Awake, Oriented x3 - Psychiatric Exam Psychiatric exam: Normal Affect, Normal Mood - Skin Skin Exam: Dry, Normal Color, Warm Assessment and Plan - Assessment and Plan (Free Text) Assessment: 87 year old female with PMH systolic heart failure (Last EF 8% in 2017) with AICD and on milrinone drip, Atrial fibrillation on warfarin, hypothyroidism, gout, arthritis, presents for refill and malfunction of her milrinone drip: Systolic heart failure with ICD and on milrinone drip: - continue with milirone drip - ED spoke with social and political studies professor who stated [facility] made an error in setting up continuous care at home for the patient to receive the refillable drip. - Cardiology Dr Alcantara on board. F/u recs. - continue with home meds: digoxin, imdur, toprol, cozaar, lasix, spironolactone Mild DAPHNE: - most likely pre- renal due to cardiac - monitor Hx of atrial fibrillation: - rate controlled - continue home toprol and warfarin - INR 1.12. will give warfarin 4 mg Hx of Gout: - continue home medications, Allopurinol and Colchicine Hx of Hypothyriodism: - TSH and Ft4 normal - continue home synthriod PPX: Pepcid, warfarin Case seen and discussed with Dr Guerrero. <Marvin Guerrero - Last Filed: 01/07/18 16:51> Objective - Vital Signs/Intake and Output Vital Signs (last 24 hours): Temp Pulse Resp BP Pulse Ox 97.1 F L 69 19 166/61 H 100 01/07/18 12:00 01/07/18 12:00 01/07/18 12:00 01/07/18 12:00 01/07/18 06:00 Intake and Output: 01/07/18 01/07/18 06:59 18:59 Intake Total 200 Output Total 200 Balance 0 - Medications Medications: Current Medications Acetaminophen (Tylenol 325mg Tab) 650 mg PO Q6H PRN PRN Reason: Fever >100.4 F Last Admin: 01/06/18 22:42 Dose: 650 mg Allopurinol (Zyloprim) 200 mg PO BID [facility] Last Admin: 01/07/18 09:39 Dose: 200 mg Colchicine (Colocrys) 0.6 mg PO DAILY [facility] Last Admin: 01/07/18 09:40 Dose: 0.6 mg Digoxin (Digoxin) 0.125 mg PO Q48H [facility] Last Admin: 01/07/18 14:23 Dose: 0.125 mg Famotidine (Pepcid) 20 mg PO HS [facility] Last Admin: 01/06/18 22:38 Dose: 20 mg Furosemide (Lasix) 40 mg PO DAILY [facility] Last Admin: 01/07/18 09:39 Dose: 40 mg Milrinone Lactate/Dextrose 40 (mg/ Dextrose) 200 mls @ 7 mls/hr IV .Q24H [facility] Last Admin: 01/06/18 19:55 Dose: 7 mls/hr Isosorbide Mononitrate (Imdur Er) 30 mg PO DAILY [facility] Last Admin: 01/07/18 09:38 Dose: 30 mg Levothyroxine Sodium (Synthroid) 112 mcg PO ACB [facility] Last Admin: 01/07/18 08:31 Dose: 112 mcg Losartan Potassium (Cozaar) 25 mg PO DAILY [facility] Last Admin: 01/07/18 09:38 Dose: 25 mg Metoprolol Succinate (Toprol Xl) 25 mg PO BRK [facility] Last Admin: 01/07/18 08:31 Dose: 25 mg Spironolactone (Aldactone) 12.5 mg PO BID [facility] Last Admin: 01/07/18 09:39 Dose: 12.5 mg Warfarin Sodium (Coumadin) 3 mg PO Q48H [facility]; Protocol Warfarin Sodium (Coumadin) 4 mg PO Q48H [facility] - Labs Labs: 01/07/18 06:00 01/07/18 06:00 PT 12.9 SECONDS (9.4-12.5) H 01/07/18 06:00 INR 1.12 01/07/18 06:00 APTT 28.4 Seconds (25.1-36.5) 01/07/18 06:00 Attending/Attestation - Attestation I have personally seen and examined this patient.: Yes I have fully participated in the care of the patient.: Yes I have reviewed all pertinent clinical information, including history, physical exam and plan: Yes Notes (Text): 01/07/18 16:42 Attending note ; Patient seen and examined with resident . Patient is alert and awake . Denies any chest pain, shortness of breath . Denies any abdominal pain, nausea, vomiting . Tolerating diet well . Denies any palpitation . Denies any fevers, chills . Denies any urinary, bowel symptoms . Patient is a 87 year old female with PMH systolic heart failure (Last EF 8% in 2017) with AICD and on milrinone drip, Atrial fibrillation on warfarin, hypothyroidism, gout, arthritis, presents for refill and malfunction of her milrinone drip. 1. Severe cardiomyopathy ;Currently on milrinone. Patient is clinically stable. Cardiology evaluation requested. 2. History of atrial fibrillation; patient has pacemaker. On Coumadin. INR is subtherapeutic. Mostly secondary to medication noncompliance. Started on Lovenox bridging therapy. Continue Coumadin. 3. Acute renal insufficiency; secondary to hemodynamic changes. Currently started back on milrinone drip. Monitor closely. 4. Chronic cardiomyopathy; continue digoxin, Aldactone, Lasix, Cozaar. 5. Hypothyroidism; continue Synthroid. PT evaluation requested. Will discuss with social and political studies professor/foster care case manager on Tuesday for home milrinone arrangements. Upon discharge the patient will follow-up with PMD cardiology Dr. Serna. 01/07/18 16:44 01/07/18 16:47 01/07/18 16:48 01/07/18 16:50
[2018-01-07] MEDS: Digoxin 125 mcg (0.125 mg) Tab PO SCH (14:23)
--- NOTE | 2018-01-07 15:39 | CARD ---
APPROVED REPORT Date of service: 01/06/2018 EKG Measurement Heart [id number] <Conclusion> Electronic ventricular pacemaker
[2018-01-07] MEDS: Enoxaparin 80 mg Syringe SC SCH (17:26)
[2018-01-08] MEDS: Enoxaparin 80 mg Syringe SC SCH ×2 (05:47→17:36)
--- NOTE | 2018-01-08 06:19 | PN ---
DATE: 01/08/2018 SUBJECTIVE: The patient is seen lying in bed on telemetry. She is currently comfortable. Arrangements cannot be made for resumption of her home milrinone infusion until Tuesday. She remains on IV milrinone at the present time. MEDICATIONS: Her other medications include Aldactone 12.5 mm b.i.d., colchicine, warfarin, Cozaar 25 mg daily, digoxin 0.125 mg every other day, Imdur 30 mg daily, Lovenox, Pepcid, Synthroid, metoprolol 25 mg daily and Zyloprim. OBJECTIVE: GENERAL: She is a very elderly woman, who is comfortable at the present time. VITAL SIGNS: Blood pressure 116/50 with pulse of 70 with ventricular pacing, respirations are 14. She is afebrile. HEENT: No JVD. CHEST: A few scattered rhonchi. HEART: PMI displaced laterally with soft tones noted. ABDOMEN: Soft, nontender, normoactive bowel sounds. EXTREMITIES: Trace ankle edema. DIAGNOSTIC DATA: Morning blood work pending. IMPRESSION: 1. Severe nonischemic cardiomyopathy with chronic congestive heart failure, systolic in nature. 2. Paroxysmal atrial fibrillation. 3. Mitral and tricuspid regurgitation. 4. Status post implantable cardioverter-defibrillator implant. RECOMMENDATIONS: Her current medications will be continued for now. Lovenox will continue until her INR is in a target range of 2-3. Arrangements for milrinone infusion at home will be put in place tomorrow when the resources are available. We will continue to follow and make further recommendations as appropriate. Dino Thompson MD
[2018-01-08] MEDS: Levothyroxine 112 MCG TAB PO SCH (08:00)
[2018-01-08] MEDS: Metoprolol Succinate 25 mg XL Tab PO SCH (08:00)
[2018-01-08 08:09] LABS: INR 1.17; PROTHROMBIN TIME 13.5 SECONDS (9.4-12.5)
[2018-01-08 08:12] LABS: BASO # 0.04 K/mm3 (0.0-2.0); BASO % 0.5 % (0.0-3.0); EOS # 0.3 (0.0-0.7); EOS % 3.8 % (1.5-5.0); GRAN # 4.83 (1.4-6.5); GRAN % 54.7 % (50.0-68.0); HEMOGLOBIN 10.8 g/dL (12.0-16.0); LYMPH # 2.8 (1.2-3.4); LYMPH % 32.1 % (22.0-35.0); MEAN CELL VOLUME 94.6 fl (80.0-105.0); MEAN CORPUSCULAR HEMOGLOBIN 30.4 pg (25.0-35.0); MEAN CORPUSCULAR HGB CONC 32.1 g/dl (31.0-37.0); MEAN PLATELET VOLUME 10.6 fl (7.0-11.0); MONO # 0.8 (0.1-0.6); MONO % 8.9 % (1.0-6.0); RBC 3.55 10^6/uL (3.5-6.1); RED CELL DISTRIBUTION WIDTH 15.3 % (11.5-14.5); WHITE BLOOD COUNT 8.8 10^3/uL (4.5-11.0)
[2018-01-08 08:15] LABS: ALBUMIN 3.5 g/dL (3.0-4.8); CALCIUM 9.4 mg/dL (8.4-10.5)
--- NOTE | 2018-01-08 13:23 | CP.PCM.PN ---
<Radha Downing - Last Filed: 01/08/18 13:16> Subjective - Date & Time of Evaluation Date of Evaluation: 01/08/18 Time of Evaluation: 13:16 - Subjective Subjective: Radha Downing DO PGY1, Medicine Progress Note for Dr Guerrero: Pt was seen and examined this morning at bedside. Pt states that she had no acute overnight events and denies feeling any palpitations or chest pain. She asks if anything could be done to expedite the process of her going home, but after discussing with her that she will have to stay until tuesday the pt understood. She denies any fevers, chills, nausea, vomiting, constipation, diarrhea, chest pain, SOB, cough or dysuria. She had no acute complaints at this time. Objective - Vital Signs/Intake and Output Vital Signs (last 24 hours): Temp Pulse Resp BP Pulse Ox 98 F 69 18 114/59 L 99 01/08/18 12:00 01/08/18 12:00 01/08/18 12:00 01/08/18 12:00 01/08/18 06:00 Intake and Output: 01/08/18 01/08/18 06:59 18:59 Intake Total Output Total Balance - Medications Medications: Current Medications Acetaminophen (Tylenol 325mg Tab) 650 mg PO Q6H PRN PRN Reason: Fever >100.4 F Last Admin: 01/08/18 09:48 Dose: 650 mg Allopurinol (Zyloprim) 200 mg PO BID [facility] Last Admin: 01/08/18 09:48 Dose: 200 mg Colchicine (Colocrys) 0.6 mg PO DAILY [facility] Last Admin: 01/08/18 09:49 Dose: 0.6 mg Digoxin (Digoxin) 0.125 mg PO Q48H [facility] Last Admin: 01/07/18 14:23 Dose: 0.125 mg Enoxaparin Sodium (Lovenox) 70 mg SC Q12H [facility]; Protocol Last Admin: 01/08/18 05:47 Dose: 70 mg Famotidine (Pepcid) 20 mg PO HS [facility] Last Admin: 01/07/18 21:54 Dose: 20 mg Milrinone Lactate/Dextrose 40 (mg/ Dextrose) 200 mls @ 7 mls/hr IV .Q24H [facility] Last Admin: 01/06/18 19:55 Dose: 7 mls/hr Isosorbide Mononitrate (Imdur Er) 30 mg PO DAILY [facility] Last Admin: 01/08/18 09:48 Dose: 30 mg Levothyroxine Sodium (Synthroid) 112 mcg PO ACB [facility] Last Admin: 01/08/18 08:00 Dose: 112 mcg Losartan Potassium (Cozaar) 25 mg PO DAILY [facility] Last Admin: 01/08/18 09:48 Dose: 25 mg Metoprolol Succinate (Toprol Xl) 25 mg PO BRK [facility] Last Admin: 01/08/18 08:00 Dose: 25 mg Spironolactone (Aldactone) 12.5 mg PO BID [facility] Last Admin: 01/08/18 09:49 Dose: 12.5 mg Warfarin Sodium (Coumadin) 4 mg PO 1800 [facility] - Labs Labs: 01/08/18 07:30 01/08/18 07:30 PT 13.5 SECONDS (9.4-12.5) H 01/08/18 07:30 INR 1.17 01/08/18 07:30 APTT 28.4 Seconds (25.1-36.5) 01/07/18 06:00 - Constitutional Appears: Well, Non-toxic, No Acute Distress - Head Exam Head Exam: ATRAUMATIC, NORMAL INSPECTION, NORMOCEPHALIC - Eye Exam Eye Exam: EOMI, Normal appearance, PERRL - ENT Exam ENT Exam: Mucous Membranes Moist, Normal Exam - Respiratory Exam Respiratory Exam: Clear to Ausculation Bilateral, NORMAL BREATHING PATTERN. absent: Rales, Rhonchi, Wheezes - Cardiovascular Exam Cardiovascular Exam: +S1, +S2, Murmur (Systolic) Additional comments: Ventricular paced rhythm - GI/Abdominal Exam GI & Abdominal Exam: Soft, Normal Bowel Sounds. absent: Firm, Guarding, Rigid, Tenderness - Extremities Exam Extremities Exam: Full ROM, Normal Capillary Refill, Normal Inspection. absent: Calf Tenderness, Pedal Edema, Tenderness - Back Exam Back Exam: NORMAL INSPECTION. absent: CVA tenderness (L), CVA tenderness (R) - Neurological Exam Neurological Exam: Alert, Awake, Oriented x3 - Psychiatric Exam Psychiatric exam: Normal Affect, Normal Mood - Skin Skin Exam: Dry, Intact, Normal Color, Warm Assessment and Plan - Assessment and Plan (Free Text) Assessment: Pt is an 87 yo F with PMHx of systolic heart failure (Last EF 8% in 2017) with AICD and on milrinone drip, Atrial fibrillation on warfarin, hypothyroidism, gout, arthritis, presents for refill and malfunction of her milrinone drip: Plan: 1. Systolic heart failure with ICD and on milrinone drip: - continue with milirone drip - ED spoke with social organization professor who stated [facility] made an error in setting up continuous care at home for the patient to receive the refillable drip. - Cardiology Dr Thompson on board - States that once pts home meds can be resumed and insurance will accept them, she can be D/tamera. - continue with home meds: digoxin, imdur, toprol, cozaar, spironolactone and coumadin 2. Mild DAPHNE: - most likely pre- renal due to cardiac - monitor 3. Hx of atrial fibrillation: - rate controlled - continue home toprol and warfarin - INR 1.17. will continue warfarin 4 mg 4. Hx of Gout: - continue home medications, Allopurinol and Colchicine 5. Hx of Hypothyriodism: - TSH and Ft4 normal - continue home synthroid 6. PPX: Pepcid, warfarin Case seen and discussed with Dr. Cesar Downing PGY1 <Marvin Guerrero - Last Filed: 01/08/18 13:58> Objective - Vital Signs/Intake and Output Vital Signs (last 24 hours): Temp Pulse Resp BP Pulse Ox 98 F 69 18 114/59 L 99 01/08/18 12:00 01/08/18 12:00 01/08/18 12:00 01/08/18 12:00 01/08/18 06:00 Intake and Output: 01/08/18 01/08/18 06:59 18:59 Intake Total Output Total Balance - Medications Medications: Current Medications Acetaminophen (Tylenol 325mg Tab) 650 mg PO Q6H PRN PRN Reason: Fever >100.4 F Last Admin: 01/08/18 09:48 Dose: 650 mg Allopurinol (Zyloprim) 200 mg PO BID [facility] Last Admin: 01/08/18 09:48 Dose: 200 mg Colchicine (Colocrys) 0.6 mg PO DAILY [facility] Last Admin: 01/08/18 09:49 Dose: 0.6 mg Digoxin (Digoxin) 0.125 mg PO Q48H [facility] Last Admin: 01/07/18 14:23 Dose: 0.125 mg Enoxaparin Sodium (Lovenox) 70 mg SC Q12H [facility]; Protocol Last Admin: 01/08/18 05:47 Dose: 70 mg Famotidine (Pepcid) 20 mg PO HS [facility] Last Admin: 01/07/18 21:54 Dose: 20 mg Milrinone Lactate/Dextrose 40 (mg/ Dextrose) 200 mls @ 7 mls/hr IV .Q24H [facility] Last Admin: 01/06/18 19:55 Dose: 7 mls/hr Isosorbide Mononitrate (Imdur Er) 30 mg PO DAILY [facility] Last Admin: 01/08/18 09:48 Dose: 30 mg Levothyroxine Sodium (Synthroid) 112 mcg PO ACB [facility] Last Admin: 01/08/18 08:00 Dose: 112 mcg Losartan Potassium (Cozaar) 25 mg PO DAILY [facility] Last Admin: 01/08/18 09:48 Dose: 25 mg Metoprolol Succinate (Toprol Xl) 25 mg PO BRK [facility] Last Admin: 01/08/18 08:00 Dose: 25 mg Spironolactone (Aldactone) 12.5 mg PO BID [facility] Last Admin: 01/08/18 09:49 Dose: 12.5 mg Warfarin Sodium (Coumadin) 4 mg PO 1800 [facility] - Labs Labs: 01/08/18 07:30 01/08/18 07:30 PT 13.5 SECONDS (9.4-12.5) H 01/08/18 07:30 INR 1.17 01/08/18 07:30 APTT 28.4 Seconds (25.1-36.5) 01/07/18 06:00 Attending/Attestation - Attestation I have personally seen and examined this patient.: Yes I have fully participated in the care of the patient.: Yes I have reviewed all pertinent clinical information, including history, physical exam and plan: Yes Notes (Text): 01/08/18 13:56 Attending note: Patient seen and examined with resident . Patient is alert and awake . Denies any chest pain, shortness of breath . Denies any abdominal pain, nausea, vomiting . Tolerating diet well . Denies any palpitation . Denies any fevers, chills . Denies any urinary, bowel symptoms . Patient is a 87 year old female with PMH systolic heart failure (Last EF 8% in 2017) with AICD and on milrinone drip, Atrial fibrillation on warfarin, hypothyroidism, gout, arthritis, presents for refill and malfunction of her milrinone drip. 1. Severe cardiomyopathy ;Currently on milrinone. Patient is clinically stable. Cardiology evaluation appreciated. 2. History of atrial fibrillation; patient has pacemaker. On Coumadin. INR is subtherapeutic. Mostly secondary to medication noncompliance. Started on Lovenox bridging therapy. Continue Coumadin. 3. Acute renal insufficiency; secondary to hemodynamic changes. Currently started back on milrinone drip. Monitor closely. 4. Chronic cardiomyopathy; continue digoxin, Aldactone, Lasix, Cozaar. 5. Hypothyroidism; continue Synthroid. PT evaluation appreciated. home services and PT recommended. Will discuss with social organization professor/shoe parts caser on Tuesday for home milrinone arrangements. Upon discharge the patient will follow-up with PMD cardiology Dr. Serna. 01/08/18 13:58
[2018-01-09] MEDS: DEXTROSE 5% IV SCH (03:43)
[2018-01-09] MEDS: WATER IV SCH (03:43)
[2018-01-09] MEDS: MILRINONE IV SCH (03:43)
[2018-01-09 07:40] LABS: BASO # 0.04 K/mm3 (0.0-2.0); BASO % 0.6 % (0.0-3.0); EOS # 0.4 (0.0-0.7); EOS % 5.5 % (1.5-5.0); GRAN # 3.65 (1.4-6.5); GRAN % 50.6 % (50.0-68.0); HEMOGLOBIN 10.1 g/dL (12.0-16.0); LYMPH # 2.5 (1.2-3.4); MEAN CELL VOLUME 94.5 fl (80.0-105.0); MEAN CORPUSCULAR HEMOGLOBIN 30.9 pg (25.0-35.0); MEAN CORPUSCULAR HGB CONC 32.7 g/dl (31.0-37.0); MEAN PLATELET VOLUME 10.1 fl (7.0-11.0); MONO # 0.6 (0.1-0.6); MONO % 8.3 % (1.0-6.0); RBC 3.27 10^6/uL (3.5-6.1); RED CELL DISTRIBUTION WIDTH 15.3 % (11.5-14.5); WHITE BLOOD COUNT 7.2 10^3/uL (4.5-11.0)
[2018-01-09 07:47] LABS: INR 1.14; PROTHROMBIN TIME 13.1 SECONDS (9.4-12.5)
[2018-01-09 07:54] LABS: ALBUMIN 3.3 g/dL (3.0-4.8); CALCIUM 9.2 mg/dL (8.4-10.5)
[2018-01-09] MEDS: Levothyroxine 112 MCG TAB PO SCH (08:19)
[2018-01-09] MEDS: Metoprolol Succinate 25 mg XL Tab PO SCH (08:19)
[2018-01-09] MEDS: Enoxaparin 80 mg Syringe SC SCH (08:19)
--- NOTE | 2018-01-09 08:53 | CP.PCM.PN ---
Subjective - Date & Time of Evaluation Date of Evaluation: 01/09/18 Time of Evaluation: 07:00 - Subjective Subjective: Stable on 2R. Hands ache but no CP or SOB. V/S noted. V. Paced PE: Lungs: few rhonchi Cor.: S1S2 Abd.: soft Ext.: min. edema Neuro.: alert I/O = 1680/500 recorded Labs: H/H 10.1/30.9, INR = 1.14, Cr.= 1.6 Objective - Vital Signs/Intake and Output Vital Signs (last 24 hours): Temp Pulse Resp BP Pulse Ox 97.6 F 70 20 120/56 L 100 01/09/18 06:00 01/09/18 08:19 01/09/18 06:00 01/09/18 08:19 01/09/18 06:00 Intake and Output: 01/09/18 01/09/18 06:59 18:59 Intake Total 480 Output Total 500 Balance -20 - Medications Medications: Current Medications Acetaminophen (Tylenol 325mg Tab) 650 mg PO Q6H PRN PRN Reason: Fever >100.4 F Last Admin: 01/08/18 09:48 Dose: 650 mg Allopurinol (Zyloprim) 200 mg PO BID [facility] Last Admin: 01/08/18 17:33 Dose: 200 mg Colchicine (Colocrys) 0.3 mg PO DAILY [facility] Digoxin (Digoxin) 0.125 mg PO Q48H [facility] Last Admin: 01/07/18 14:23 Dose: 0.125 mg Enoxaparin Sodium (Lovenox) 70 mg SC Q12H [facility]; Protocol Last Admin: 01/09/18 08:19 Dose: 70 mg Famotidine (Pepcid) 20 mg PO HS [facility] Last Admin: 01/08/18 23:04 Dose: 20 mg Milrinone Lactate/Dextrose 40 (mg/ Dextrose) 200 mls @ 7 mls/hr IV .Q24H [facility] Last Admin: 01/09/18 03:43 Dose: 7 mls/hr Isosorbide Mononitrate (Imdur Er) 30 mg PO DAILY [facility] Last Admin: 01/08/18 09:48 Dose: 30 mg Levothyroxine Sodium (Synthroid) 112 mcg PO ACB [facility] Last Admin: 01/09/18 08:19 Dose: 112 mcg Losartan Potassium (Cozaar) 25 mg PO DAILY [facility] Last Admin: 01/08/18 09:48 Dose: 25 mg Metoprolol Succinate (Toprol Xl) 25 mg PO BRK [facility] Last Admin: 01/09/18 08:19 Dose: 25 mg Spironolactone (Aldactone) 12.5 mg PO BID [facility] Last Admin: 01/08/18 17:33 Dose: 12.5 mg Warfarin Sodium (Coumadin) 5 mg PO 1800 [facility] Last Admin: 01/08/18 17:33 Dose: 5 mg - Labs Labs: 01/09/18 07:25 01/09/18 07:25 PT 13.1 SECONDS (9.4-12.5) H 01/09/18 07:25 INR 1.14 01/09/18 07:25 APTT 28.4 Seconds (25.1-36.5) 01/07/18 06:00 Assessment and Plan - Assessment and Plan (Free Text) Assessment: Dyspnea Hand pains CHF, home milrinone CCM with severe LVD and severe MR, TR and PH Chronic AF, on warfarin ICD CVA Hypothyroidism Former Smoker Gout H/O GB surgery, laminectomy, hernia repair Plan: Re-Establish home milrinone infusion. Pt. planning to move to nursing facility in [place] (near her daughter) soon. Social SVC to clarify and coordinate with daughter regarding this transfer. OOB to chair as mireille. Lovenox > warfarin with 7.5 mg. today. Monitor INRs daily until therapeutic. Analgesics Check U. A. Level Pt was previously DNR/DNI status. Please clarify status.
[2018-01-09] MEDS ORDERED: Non Formulary Medication (Warfarin [Coumadin] 4 MG) PO SCH (10:00)
[2018-01-09] MEDS: Digoxin 125 mcg (0.125 mg) Tab PO SCH (14:41)
--- NOTE | 2018-01-09 17:25 | CP.PCM.PN ---
<Pam Russell - Last Filed: 01/09/18 17:22> Subjective - Date & Time of Evaluation Date of Evaluation: 01/09/18 Time of Evaluation: 11:00 - Subjective Subjective: Yvonne Betancur, PGY1 Medicine Progress Note for Dr. Finley Patient seen and examined at bedside this morning. No acute events reported overnight. No new complaints offered at this time. Denies CP, SOB, urinary complaints, numbness, tingling, swelling, fevers and nausea. Tolerating diet well. Objective - Vital Signs/Intake and Output Vital Signs (last 24 hours): Temp Pulse Resp BP Pulse Ox 97.6 F 70 20 98/67 L 100 01/09/18 12:00 01/09/18 14:00 01/09/18 12:00 01/09/18 12:00 01/09/18 06:00 Intake and Output: 01/09/18 01/09/18 06:59 18:59 Intake Total 480 Output Total 500 Balance -20 - Medications Medications: Current Medications Acetaminophen (Tylenol 325mg Tab) 650 mg PO Q6H PRN PRN Reason: Fever >100.4 F Last Admin: 01/08/18 09:48 Dose: 650 mg Allopurinol (Zyloprim) 200 mg PO BID [facility] Last Admin: 01/09/18 09:36 Dose: 200 mg Colchicine (Colocrys) 0.3 mg PO DAILY [facility] Last Admin: 01/09/18 09:35 Dose: 0.3 mg Digoxin (Digoxin) 0.125 mg PO Q48H [facility] Last Admin: 01/09/18 14:41 Dose: 0.125 mg Enoxaparin Sodium (Lovenox) 70 mg SC DAILY [facility]; Protocol Famotidine (Pepcid) 20 mg PO HS [facility] Last Admin: 01/08/18 23:04 Dose: 20 mg Furosemide (Lasix) 40 mg PO DAILY [facility] Last Admin: 01/09/18 09:36 Dose: 40 mg Milrinone Lactate/Dextrose 40 (mg/ Dextrose) 200 mls @ 7 mls/hr IV .Q24H [facility] Last Admin: 01/09/18 03:43 Dose: 7 mls/hr Isosorbide Mononitrate (Imdur Er) 30 mg PO DAILY [facility] Last Admin: 01/09/18 09:36 Dose: 30 mg Levothyroxine Sodium (Synthroid) 112 mcg PO ACB [facility] Last Admin: 01/09/18 08:19 Dose: 112 mcg Losartan Potassium (Cozaar) 25 mg PO DAILY [facility] Last Admin: 01/09/18 09:36 Dose: 25 mg Metoprolol Succinate (Toprol Xl) 25 mg PO BRK [facility] Last Admin: 01/09/18 08:19 Dose: 25 mg Spironolactone (Aldactone) 12.5 mg PO BID [facility] Last Admin: 01/09/18 09:36 Dose: 12.5 mg - Labs Labs: 01/09/18 07:25 01/09/18 07:25 PT 13.1 SECONDS (9.4-12.5) H 01/09/18 07:25 INR 1.14 01/09/18 07:25 APTT 28.4 Seconds (25.1-36.5) 01/07/18 06:00 - Constitutional Appears: No Acute Distress - Head Exam Head Exam: ATRAUMATIC, NORMAL INSPECTION - Eye Exam Eye Exam: EOMI Pupil Exam: PERRL - ENT Exam ENT Exam: Mucous Membranes Moist - Respiratory Exam Respiratory Exam: Clear to Ausculation Bilateral. absent: Accessory Muscle Use, Respiratory Distress - Cardiovascular Exam Cardiovascular Exam: REGULAR RHYTHM, +S1, +S2 Additional comments: ventricular paced rhyhtm appreciated - GI/Abdominal Exam GI & Abdominal Exam: Soft, Normal Bowel Sounds. absent: Guarding, Rigid - Extremities Exam Extremities Exam: Normal Inspection. absent: Calf Tenderness - Neurological Exam Neurological Exam: Alert, Oriented x3 - Skin Skin Exam: Normal Color, Warm Assessment and Plan - Assessment and Plan (Free Text) Assessment: This is an 87 year old female with PMH of systolic heart failure (Last EF 8% in 2017) with AICD and on milrinone drip, Atrial fibrillation on warfarin, hypothyroidism, gout, arthritis, presents for management of DAPHNE and systolic heart failure. Plan: Systolic heart failure with ICD: -Last EF 8% in 03/30/2016 -Previously at [facility], patient unable to refill milrinone drip outpatient -continue milrinone drip, currently on 7ml/hr -continue cozaar, digoxin, imdur, toprol, aldactone -Cardiology on consult, Dr Thompson, appreciate reccomendations Mild DAPHNE: -consider hemodynamic instability as etiology -continue milrinone drip -monitor BP - monitor BUN/Cr History of atrial fibrillation: -continue coumadin, toprol -currently rate controlled, has pacemaker - INR is therapeutic. will continue warfarin History of Hypothyriodism: - TSH and free T4 are WNL - continue home synthroid History of Gout: -continue home Allopurinol and Colchicine PPX with pepcid and coumadin Patient seen and case discussed with attending, Dr. Finley <Leeanne Finley R - Last Filed: 01/10/18 08:01> Objective - Vital Signs/Intake and Output Vital Signs (last 24 hours): Temp Pulse Resp BP Pulse Ox 98.5 F 70 20 130/72 97 01/10/18 06:00 01/10/18 06:00 01/10/18 06:00 01/10/18 06:00 01/10/18 06:00 Intake and Output: 01/10/18 01/10/18 06:59 18:59 Intake Total 240 84 Balance 240 84 - Medications Medications: Current Medications Acetaminophen (Tylenol 325mg Tab) 650 mg PO Q6H PRN PRN Reason: Fever >100.4 F Last Admin: 01/08/18 09:48 Dose: 650 mg Allopurinol (Zyloprim) 200 mg PO BID [facility] Last Admin: 01/09/18 18:21 Dose: 200 mg Colchicine (Colocrys) 0.3 mg PO DAILY [facility] Last Admin: 01/09/18 09:35 Dose: 0.3 mg Digoxin (Digoxin) 0.125 mg PO Q48H [facility] Last Admin: 01/09/18 14:41 Dose: 0.125 mg Enoxaparin Sodium (Lovenox) 70 mg SC DAILY [facility]; Protocol Famotidine (Pepcid) 20 mg PO HS [facility] Last Admin: 01/09/18 23:12 Dose: 20 mg Furosemide (Lasix) 40 mg PO DAILY [facility] Last Admin: 01/09/18 09:36 Dose: 40 mg Milrinone Lactate/Dextrose 40 (mg/ Dextrose) 200 mls @ 7 mls/hr IV .Q24H [facility] Last Admin: 01/10/18 06:10 Dose: 7 mls/hr Isosorbide Mononitrate (Imdur Er) 30 mg PO DAILY [facility] Last Admin: 01/09/18 09:36 Dose: 30 mg Levothyroxine Sodium (Synthroid) 112 mcg PO ACB [facility] Last Admin: 01/09/18 08:19 Dose: 112 mcg Losartan Potassium (Cozaar) 25 mg PO DAILY [facility] Last Admin: 01/09/18 09:36 Dose: 25 mg Metoprolol Succinate (Toprol Xl) 25 mg PO BRK [facility] Last Admin: 01/09/18 08:19 Dose: 25 mg Spironolactone (Aldactone) 12.5 mg PO BID [facility] Last Admin: 01/09/18 18:19 Dose: 12.5 mg - Labs Labs: 01/09/18 07:25 01/10/18 05:53 PT 12.3 SECONDS (9.4-12.5) 01/10/18 05:53 INR 1.07 01/10/18 05:53 APTT 28.4 Seconds (25.1-36.5) 01/07/18 06:00 Attending/Attestation - Attestation I have personally seen and examined this patient.: Yes I have fully participated in the care of the patient.: Yes I have reviewed all pertinent clinical information, including history, physical exam and plan: Yes Notes (Text): Patient seen and examined by me with resident at 11:50AM with resident 01/09/18. Case including HPI, physical exam, and assessment and plan discussed with resident. Agree with above with following additions/corrections. Patient is an 87 year old female with past medical history significant for systolic heart failure s/p ICD on milrinone drip, atrial fibrillation on coumadin, hypothyroidism, gout, and arthritis that presented to the emergency room for medication refill and malfunctioning of milrinone drip. Patient states she is feeling pretty good. She states she does have some right wrist pain from arthritis. Patient denies any chest pain or palpitations. No fevers or chills. No nausea, vomiting, abdominal pain. No dysuria. Paitent denies any constipation or diarrhea. Physical exam: General: Awake and alert lying in bed in no acute distress HEENT: Normocephalic, atraumatic. Extraocular muscles intact, pupils equal and reactive, no scleral icterus. Oropharynx is pink and moist. Neck is supple. Cardiovascular: Normal rhythm. Normal S1, S2. No murmurs, rubs, or gallops appreciated Pulmonary: Normal respiratory effort. No rhonchi, rales, or wheezing appreciated Gastrointestinal: Soft, nondistended. Nontender. Positive bowel sounds all 4 quadrants. No guarding. Musculoskeletal: Moves all extremities. No edema appreciated. No calf tenderness. Central nervous system: AAO x3 Dermatologic: Skin warm and dry. Assessment and plan: Patient is an 87 year old female with past medical history significant for systolic heart failure s/p ICD on milrinone drip, atrial fibrillation on coumadin, hypothyroidism, gout, and arthritis that presented to the emergency room for medication refill and malfunctioning of milrinone drip. 1. Severe nonischemic cardiomyopathy. Chronic systolic CHF. S/P ICD. Continue milrinone drip. Continue digoxin, imdur, cozaar, metoprolol, and aldactone. Cardiology following, recommendations appreciated. 2. DAPHNE. Likely secondary to severe cardiomyopathy. Creatinine stable. Continue to monitor. 3. Paroxysmal atrial fibrillation. INR subtherapeutic at 1.14. Continue to bridge with lovenox. Patient to get Coumadin 7.5 mg tonight. Continue to monitor INR. 4. History of gout. Continue allopurinol and colchicine. 5. Hypothyroidism. Continue synthroid. 6. Anemia of chronic disease. H&H stable. Patient at baseline. Continue to monitor. 7. GI/DVT prophylaxis. Pepcid/lovenox Case was discussed in detail with the patient regarding current diagnosis and treatment plan. All questions answered.
[2018-01-10] MEDS: MILRINONE IV SCH ×2 (06:10→19:38)
[2018-01-10] MEDS: DEXTROSE 5% IV SCH ×2 (06:10→19:38)
[2018-01-10] MEDS: WATER IV SCH ×2 (06:10→19:38)
[2018-01-10 06:40] LABS: INR 1.07; PROTHROMBIN TIME 12.3 SECONDS (9.4-12.5)
[2018-01-10 06:51] LABS: ALBUMIN 3.2 g/dL (3.0-4.8); CALCIUM 9.1 mg/dL (8.4-10.5)
--- NOTE | 2018-01-10 09:53 | CP.PCM.PN ---
Subjective - Date & Time of Evaluation Date of Evaluation: 01/10/18 Time of Evaluation: 07:00 - Subjective Subjective: Stable on 2R. She feels better. No CP or SOB. V/S noted. V. Paced PE: Lungs: few rhonchi Cor.: S1S2 Abd.: soft Ext.: min. edema Neuro.: alert Labs noted: INR = 1.07, Cr.= 1.6 Objective - Vital Signs/Intake and Output Vital Signs (last 24 hours): Temp Pulse Resp BP Pulse Ox 98.5 F 70 20 130/72 97 01/10/18 06:00 01/10/18 06:00 01/10/18 06:00 01/10/18 06:00 01/10/18 06:00 Intake and Output: 01/10/18 01/10/18 06:59 18:59 Intake Total 240 84 Balance 240 84 - Medications Medications: Current Medications Acetaminophen (Tylenol 325mg Tab) 650 mg PO Q6H PRN PRN Reason: Fever >100.4 F Last Admin: 01/08/18 09:48 Dose: 650 mg Allopurinol (Zyloprim) 200 mg PO BID [facility] Last Admin: 01/09/18 18:21 Dose: 200 mg Colchicine (Colocrys) 0.3 mg PO DAILY [facility] Last Admin: 01/09/18 09:35 Dose: 0.3 mg Digoxin (Digoxin) 0.125 mg PO Q48H [facility] Last Admin: 01/09/18 14:41 Dose: 0.125 mg Enoxaparin Sodium (Lovenox) 70 mg SC DAILY [facility]; Protocol Famotidine (Pepcid) 20 mg PO HS [facility] Last Admin: 01/09/18 23:12 Dose: 20 mg Furosemide (Lasix) 40 mg PO DAILY [facility] Last Admin: 01/09/18 09:36 Dose: 40 mg Milrinone Lactate/Dextrose 40 (mg/ Dextrose) 200 mls @ 7 mls/hr IV .Q24H [facility] Last Admin: 01/10/18 06:10 Dose: 7 mls/hr Isosorbide Mononitrate (Imdur Er) 30 mg PO DAILY [facility] Last Admin: 01/09/18 09:36 Dose: 30 mg Levothyroxine Sodium (Synthroid) 112 mcg PO ACB [facility] Last Admin: 01/09/18 08:19 Dose: 112 mcg Losartan Potassium (Cozaar) 25 mg PO DAILY [facility] Last Admin: 01/09/18 09:36 Dose: 25 mg Metoprolol Succinate (Toprol Xl) 25 mg PO BRK [facility] Last Admin: 01/09/18 08:19 Dose: 25 mg Spironolactone (Aldactone) 12.5 mg PO BID [facility] Last Admin: 01/09/18 18:19 Dose: 12.5 mg Warfarin Sodium (Coumadin) 7.5 mg PO ONCE ONE; Protocol Stop: 01/10/18 12:01 - Labs Labs: 01/09/18 07:25 01/10/18 05:53 PT 12.3 SECONDS (9.4-12.5) 01/10/18 05:53 INR 1.07 01/10/18 05:53 APTT 28.4 Seconds (25.1-36.5) 01/07/18 06:00 Assessment and Plan - Assessment and Plan (Free Text) Assessment: Dyspnea Hand pains CHF, home milrinone CCM with severe LVD and severe MR, TR and PH Chronic AF, on warfarin ICD CVA Hypothyroidism Former Smoker Gout H/O GB surgery, laminectomy, hernia repair Plan: Re-Establish home milrinone infusion. Pt. planning to move to nursing facility in [place] (near her daughter) soon. Social SVC to clarify and coordinate with daughter regarding this transfer. OOB to chair as mireille. Warfarin 7.5 today. Heparin SQ to bridge. Monitor INRs daily until therapeutic. Analgesics Check U. A. Level Pt was previously DNR/DNI status. Please clarify status.
[2018-01-10] MEDS ORDERED: Enoxaparin 80 mg Syringe SC SCH (10:00)
[2018-01-10] MEDS: Levothyroxine 112 MCG TAB PO SCH (10:01)
--- NOTE | 2018-01-10 10:15 | CP.PCM.PN ---
<Pam Russell - Last Filed: 01/10/18 15:08> Subjective - Date & Time of Evaluation Date of Evaluation: 01/10/18 Time of Evaluation: 10:12 - Subjective Subjective: Yvonne Orozco, PGY1 Medicine Progress Note for Dr. Finley Patient seen and examined at bedside this morning. No acute events reported overnight and no new complaints offered at this time. Tolerating diet without complaints. Denies CP, SOB, urinary complaints, numbness, tingling, swelling, fevers and nausea. Hemodynamically stable. Objective - Vital Signs/Intake and Output Vital Signs (last 24 hours): Temp Pulse Resp BP Pulse Ox 98.5 F 70 20 130/72 97 01/10/18 06:00 01/10/18 06:00 01/10/18 06:00 01/10/18 06:00 01/10/18 06:00 Intake and Output: 01/10/18 01/10/18 06:59 18:59 Intake Total 240 84 Balance 240 84 - Medications Medications: Current Medications Acetaminophen (Tylenol 325mg Tab) 650 mg PO Q6H PRN PRN Reason: Fever >100.4 F Last Admin: 01/08/18 09:48 Dose: 650 mg Allopurinol (Zyloprim) 200 mg PO BID [facility] Last Admin: 01/09/18 18:21 Dose: 200 mg Colchicine (Colocrys) 0.3 mg PO DAILY [facility] Last Admin: 01/09/18 09:35 Dose: 0.3 mg Digoxin (Digoxin) 0.125 mg PO Q48H [facility] Last Admin: 01/09/18 14:41 Dose: 0.125 mg Enoxaparin Sodium (Lovenox) 70 mg SC DAILY [facility]; Protocol Famotidine (Pepcid) 20 mg PO HS [facility] Last Admin: 01/09/18 23:12 Dose: 20 mg Furosemide (Lasix) 40 mg PO DAILY [facility] Last Admin: 01/09/18 09:36 Dose: 40 mg Milrinone Lactate/Dextrose 40 (mg/ Dextrose) 200 mls @ 7 mls/hr IV .Q24H [facility] Last Admin: 01/10/18 06:10 Dose: 7 mls/hr Isosorbide Mononitrate (Imdur Er) 30 mg PO DAILY [facility] Last Admin: 01/09/18 09:36 Dose: 30 mg Levothyroxine Sodium (Synthroid) 112 mcg PO ACB [facility] Last Admin: 01/09/18 08:19 Dose: 112 mcg Losartan Potassium (Cozaar) 25 mg PO DAILY [facility] Last Admin: 01/09/18 09:36 Dose: 25 mg Metoprolol Succinate (Toprol Xl) 25 mg PO BRK [facility] Last Admin: 01/09/18 08:19 Dose: 25 mg Spironolactone (Aldactone) 12.5 mg PO BID [facility] Last Admin: 01/09/18 18:19 Dose: 12.5 mg Warfarin Sodium (Coumadin) 7.5 mg PO ONCE ONE; Protocol Stop: 01/10/18 12:01 - Labs Labs: 01/09/18 07:25 01/10/18 05:53 PT 12.3 SECONDS (9.4-12.5) 01/10/18 05:53 INR 1.07 01/10/18 05:53 APTT 28.4 Seconds (25.1-36.5) 01/07/18 06:00 - Constitutional Appears: No Acute Distress - Head Exam Head Exam: ATRAUMATIC, NORMAL INSPECTION - Eye Exam Eye Exam: EOMI Pupil Exam: PERRL - ENT Exam ENT Exam: Mucous Membranes Moist - Respiratory Exam Respiratory Exam: Clear to Ausculation Bilateral. absent: Accessory Muscle Use, Wheezes, Respiratory Distress - Cardiovascular Exam Cardiovascular Exam: +S1, +S2, Murmur Additional comments: ventricular paced rhythm appreciated - GI/Abdominal Exam GI & Abdominal Exam: Soft, Normal Bowel Sounds. absent: Guarding, Rigid - Extremities Exam Extremities Exam: Normal Capillary Refill, Normal Inspection. absent: Calf Tenderness - Neurological Exam Neurological Exam: Alert, Awake, Oriented x3 - Skin Skin Exam: Normal Color, Warm Assessment and Plan - Assessment and Plan (Free Text) Assessment: This is an 87 year old female with PMH of systolic heart failure (Last EF 8% in 2017) with AICD and on milrinone drip, Atrial fibrillation on warfarin, hypothyroidism, gout, arthritis, presents for management of systolic heart failure and DAPHNE . Plan: Systolic heart failure s/p ICD: -Last EF 8% in 03/30/2016, severe non ischemic cardiomyopathy -Previously at [facility], patient unable to refill milrinone drip outpatient -continue milrinone drip, now running at 7ml/hr -continue lasix 40mg PO, digoxin, imdur, cozaar, toprol XL, aldactone -Cardiology on consult, Dr Thompson, appreciate recommendations -per cardiology, no other alternatives to milrinone Mild DAPHNE: -consider hemodynamic instability as etiology from severe cardiomyopathy -continue milrinone drip -monitor BP, currently stable -monitor BUN/Cr, presently at baseline History of atrial fibrillation: -continue coumadin, toprol -currently rate controlled, s/p ICD - INR is therapeutic. will continue warfarin -monitor INR History of Hypothyriodism: - TSH and free T4 are WNL - continue home synthroid History of Gout: -continue home Allopurinol and Colchicine (0.6mg q2days) PPX with pepcid and lovenox Patient seen and case discussed with attending, Dr. Finley <Leeanne Finley R - Last Filed: 01/12/18 07:49> Objective - Vital Signs/Intake and Output Vital Signs (last 24 hours): Temp Pulse Resp BP Pulse Ox 87.9 F L 70 20 134/63 97 01/12/18 06:00 01/12/18 06:00 01/12/18 06:00 01/12/18 06:00 01/11/18 06:00 Intake and Output: 01/12/18 01/12/18 06:59 18:59 Intake Total 360 Balance 360 - Medications Medications: Current Medications Acetaminophen (Tylenol 325mg Tab) 650 mg PO Q6H PRN PRN Reason: Pain, moderate (4-7) Last Admin: 01/11/18 04:52 Dose: 650 mg Allopurinol (Zyloprim) 200 mg PO BID [facility] Last Admin: 01/11/18 18:59 Dose: 200 mg Colchicine (Colocrys) 0.6 mg PO Q2D [facility] Last Admin: 01/10/18 17:45 Dose: 0.6 mg Digoxin (Digoxin) 0.125 mg PO Q48H [facility] Last Admin: 01/11/18 15:06 Dose: 0.125 mg Famotidine (Pepcid) 20 mg PO HS [facility] Last Admin: 01/11/18 22:32 Dose: 20 mg Furosemide (Lasix) 40 mg PO DAILY [facility] Last Admin: 01/11/18 10:55 Dose: 40 mg Heparin Sodium (Porcine) (Heparin) 5,000 units SC Q8 [facility]; Protocol Last Admin: 01/12/18 05:37 Dose: 5,000 units Milrinone Lactate/Dextrose 40 (mg/ Dextrose) 200 mls @ 7 mls/hr IV .Q24H [facility] Last Admin: 01/11/18 18:59 Dose: Not Given Isosorbide Mononitrate (Imdur Er) 30 mg PO DAILY [facility] Last Admin: 01/11/18 10:55 Dose: 30 mg Levothyroxine Sodium (Synthroid) 112 mcg PO ACB [facility] Last Admin: 01/11/18 08:39 Dose: 112 mcg Losartan Potassium (Cozaar) 25 mg PO DAILY [facility] Last Admin: 01/11/18 10:55 Dose: 25 mg Metoprolol Succinate (Toprol Xl) 25 mg PO BRK [facility] Last Admin: 01/11/18 08:39 Dose: 25 mg Spironolactone (Aldactone) 12.5 mg PO BID [facility] Last Admin: 01/11/18 18:58 Dose: 12.5 mg - Labs Labs: 01/12/18 05:25 01/12/18 05:25 PT 18.5 SECONDS (9.4-12.5) H 01/12/18 05:25 INR 1.59 01/12/18 05:25 APTT 28.4 Seconds (25.1-36.5) 01/07/18 06:00 Attending/Attestation - Attestation I have personally seen and examined this patient.: Yes I have fully participated in the care of the patient.: Yes I have reviewed all pertinent clinical information, including history, physical exam and plan: Yes Notes (Text): Patient seen and examined by me with resident at 12PM with resident 01/10/18. Case including HPI, physical exam, and assessment and plan discussed with resident. Agree with above with following additions/corrections. Patient is an 87 year old female with past medical history significant for systolic heart failure s/p ICD on milrinone drip, atrial fibrillation on coumadin, hypothyroidism, gout, and arthritis that presented to the emergency room for medication refill and malfunctioning of milrinone drip. Patient states she feels ok. States that she got a little short of breath when she went to the bathroom. Right wrist and hand pain has improved. No chest pain or palpitations. No fevers or chills. No nausea, vomiting, abdominal pain. No dysuria. No headaches or dizziness. Paitent denies any constipation or diarrhea. Physical exam: General: Awake and alert lying in bed in no acute distress HEENT: Normocephalic, atraumatic. Extraocular muscles intact, pupils equal and reactive, no scleral icterus. Oropharynx is pink and moist. Neck is supple. Cardiovascular: Normal rhythm. Normal S1, S2. No murmurs, rubs, or gallops appreciated Pulmonary: Normal respiratory effort. No rhonchi, rales, or wheezing appreciated Gastrointestinal: Soft, nondistended. Nontender. Positive bowel sounds all 4 quadrants. No guarding. Musculoskeletal: Moves all extremities. No edema appreciated. No calf tenderness. Central nervous system: AAO x3 Dermatologic: Skin warm and dry. Assessment and plan: Patient is an 87 year old female with past medical history significant for systolic heart failure s/p ICD on milrinone drip, atrial fibrill ation on coumadin, hypothyroidism, gout, and arthritis that presented to the emergency room for medication refill and malfunctioning of milrinone drip. 1. Severe nonischemic cardiomyopathy. Chronic systolic CHF. S/P ICD. With some shortness of breath. Continue milrinone drip. Continue digoxin, imdur, cozaar, metoprolol, and aldactone. Cardiology following, recommendations appreciated. 2. Subtherapeutic INR. Continue with coumadin 7.5mg . INR 1.07. 3. DAPHNE. Likely secondary to severe cardiomyopathy. Creatinine stable. Continue to monitor. 4. Paroxysmal atrial fibrillation. Continue to bridge with lovenox. Patient to get Coumadin 7.5 mg tonight. Continue to monitor INR. 5. History of gout. Continue allopurinol and colchicine. 6. Hypothyroidism. Continue synthroid. 7. Anemia of chronic disease. H&H stable. Patient at baseline. Continue to monitor. 8. GI/DVT prophylaxis. Pepcid/lovenox Case was discussed in detail with the patient regarding current diagnosis and treatment plan. All questions answered.
[2018-01-10] MEDS: Metoprolol Succinate 25 mg XL Tab PO SCH (10:20)
[2018-01-11 06:20] LABS: INR 1.31; PROTHROMBIN TIME 15.1 SECONDS (9.4-12.5)
[2018-01-11 06:34] LABS: ALBUMIN 3.3 g/dL (3.0-4.8); CALCIUM 9.1 mg/dL (8.4-10.5); URIC ACID 3.5 mg/dL (2.5-6.2)
[2018-01-11 06:47] LABS: BASO # 0.05 K/mm3 (0.0-2.0); BASO % 0.7 % (0.0-3.0); EOS # 0.4 (0.0-0.7); EOS % 5.4 % (1.5-5.0); GRAN # 3.38 (1.4-6.5); GRAN % 48.9 % (50.0-68.0); HEMOGLOBIN 10.1 g/dL (12.0-16.0); LYMPH # 2.4 (1.2-3.4); LYMPH % 35.4 % (22.0-35.0); MEAN CELL VOLUME 95.1 fl (80.0-105.0); MEAN CORPUSCULAR HEMOGLOBIN 30.8 pg (25.0-35.0); MEAN CORPUSCULAR HGB CONC 32.4 g/dl (31.0-37.0); MEAN PLATELET VOLUME 10.5 fl (7.0-11.0); MONO # 0.7 (0.1-0.6); MONO % 9.6 % (1.0-6.0); RBC 3.28 10^6/uL (3.5-6.1); RED CELL DISTRIBUTION WIDTH 15.6 % (11.5-14.5); WHITE BLOOD COUNT 6.9 10^3/uL (4.5-11.0)
[2018-01-11] MEDS: Metoprolol Succinate 25 mg XL Tab PO SCH (08:39)
[2018-01-11] MEDS: Levothyroxine 112 MCG TAB PO SCH (08:39)
--- NOTE | 2018-01-11 13:08 | PN ---
DATE: 01/11/2018 SUBJECTIVE: The patient is seen lying in bed on telemetry. She is currently comfortable. She remains on IV milrinone. Her other medications include Aldactone, colchicine, Coumadin, Cozaar, digoxin, subcutaneous heparin, Imdur, Lasix, Pepcid, Synthroid, Toprol-XL and Zyloprim. OBJECTIVE: GENERAL: She is a very elderly woman, who appears comfortable at the present time. VITAL SIGNS: Her blood pressure is 130/50 with pulse of 70 with ventricular pacing, respirations are 14. She is afebrile. HEENT: No JVD. CHEST: A few scattered rhonchi. HEART: PMI displaced laterally with soft tones noted. ABDOMEN: Soft, nontender. Normoactive bowel sounds. EXTREMITIES: No edema. DIAGNOSTIC DATA: Potassium 4.7, BUN and creatinine are 47 and 1.6. White count 6.9, hemoglobin and hematocrit 10 and 31.2 with platelet count 201,000. INR is 1.31. IMPRESSION: 1. Chronic congestive heart failure, on chronic home milrinone therapy. 2. Severe nonischemic cardiomyopathy. 3. Paroxysmal atrial fibrillation. 4. Status post implantable cardioverter-defibrillator implant. 5. Mitral and tricuspid regurgitation. RECOMMENDATIONS: Her current medications will be continued for now. Subcutaneous heparin is being continued while her Coumadin is adjusted to a target INR of 2-3. She awaits arrangements for home milrinone infusion and ultimate transfer to [place] to stay with her daughter. DNR/DNI orders in place. We will follow along as needed. Dino Thompson MD
[2018-01-11] MEDS: WATER IV SCH ×2 (14:20→18:59)
[2018-01-11] MEDS: DEXTROSE 5% IV SCH ×2 (14:20→18:59)
[2018-01-11] MEDS: MILRINONE IV SCH ×2 (14:20→18:59)
[2018-01-11] MEDS: Digoxin 125 mcg (0.125 mg) Tab PO SCH (15:06)
--- NOTE | 2018-01-11 15:33 | CP.PCM.PN ---
<Pam Russell - Last Filed: 01/11/18 15:19> Subjective - Date & Time of Evaluation Date of Evaluation: 01/11/18 Time of Evaluation: 11:00 - Subjective Subjective: Yvonne Orozco, PGY1 Medicine Progress Note for Dr. Finley Patient seen and examined at bedside this morning. No acute events reported overnight and tolerating diet well. No new complaints offered at this time. Denies CP, SOB, urinary complaints, numbness, tingling, swelling, fevers and nausea. Objective - Vital Signs/Intake and Output Vital Signs (last 24 hours): Temp Pulse Resp BP Pulse Ox 98.7 F 69 19 100/45 L 97 01/11/18 12:00 01/11/18 12:00 01/11/18 12:00 01/11/18 12:00 01/11/18 06:00 Intake and Output: 01/11/18 01/11/18 06:59 18:59 Intake Total 986 Output Total 600 Balance 386 - Medications Medications: Current Medications Acetaminophen (Tylenol 325mg Tab) 650 mg PO Q6H PRN PRN Reason: Pain, moderate (4-7) Last Admin: 01/11/18 04:52 Dose: 650 mg Allopurinol (Zyloprim) 200 mg PO BID [facility] Last Admin: 01/10/18 17:45 Dose: 200 mg Colchicine (Colocrys) 0.6 mg PO Q2D [facility] Last Admin: 01/10/18 17:45 Dose: 0.6 mg Digoxin (Digoxin) 0.125 mg PO Q48H [facility] Last Admin: 01/09/18 14:41 Dose: 0.125 mg Famotidine (Pepcid) 20 mg PO HS [facility] Last Admin: 01/10/18 21:37 Dose: Not Given Furosemide (Lasix) 40 mg PO DAILY [facility] Last Admin: 01/10/18 10:02 Dose: 40 mg Heparin Sodium (Porcine) (Heparin) 5,000 units SC Q8 [facility]; Protocol Milrinone Lactate/Dextrose 40 (mg/ Dextrose) 200 mls @ 7 mls/hr IV .Q24H [facility] Last Admin: 01/10/18 19:38 Dose: Not Given Isosorbide Mononitrate (Imdur Er) 30 mg PO DAILY [facility] Last Admin: 01/10/18 10:05 Dose: 30 mg Levothyroxine Sodium (Synthroid) 112 mcg PO ACB [facility] Last Admin: 01/11/18 08:39 Dose: 112 mcg Losartan Potassium (Cozaar) 25 mg PO DAILY [facility] Last Admin: 01/10/18 10:06 Dose: 25 mg Metoprolol Succinate (Toprol Xl) 25 mg PO BRK [facility] Last Admin: 01/11/18 08:39 Dose: 25 mg Spironolactone (Aldactone) 12.5 mg PO BID [facility] Last Admin: 01/10/18 17:45 Dose: 12.5 mg Warfarin Sodium (Coumadin) 7.5 mg PO 1800 [facility]; Protocol Stop: 01/11/18 18:01 - Labs Labs: 01/11/18 06:00 01/11/18 06:00 PT 15.1 SECONDS (9.4-12.5) H 01/11/18 06:00 INR 1.31 01/11/18 06:00 APTT 28.4 Seconds (25.1-36.5) 01/07/18 06:00 - Constitutional Appears: No Acute Distress - Head Exam Head Exam: ATRAUMATIC, NORMAL INSPECTION - Eye Exam Eye Exam: EOMI Pupil Exam: PERRL - ENT Exam ENT Exam: Mucous Membranes Moist - Respiratory Exam Respiratory Exam: Clear to Ausculation Bilateral. absent: Accessory Muscle Use, Respiratory Distress - Cardiovascular Exam Cardiovascular Exam: REGULAR RHYTHM, +S1, +S2 - GI/Abdominal Exam GI & Abdominal Exam: Normal Bowel Sounds. absent: Guarding, Rigid - Extremities Exam Extremities Exam: Normal Inspection. absent: Calf Tenderness - Neurological Exam Neurological Exam: Alert, Oriented x3 - Skin Skin Exam: Normal Color, Warm Assessment and Plan - Assessment and Plan (Free Text) Assessment: This is an 87 year old female with PMH of systolic heart failure (Last EF 8% in 2017) with AICD and on milrinone drip, Atrial fibrillation on warfarin, hypothyroidism, gout, arthritis, presents for management of systolic heart failure and DAPHNE . Plan: History of atrial fibrillation: -continue coumadin, 7.5mg -currently rate controlled, s/p ICD -INR is 1.31 today from 1.07 yesterday, will need to be at least 1.7 before discharge -monitor INR -per cardiology, will use heparin sc as bridge, discontinue lovenex Systolic heart failure s/p ICD: -Last EF 8% in 03/30/2016, severe non ischemic cardiomyopathy -Previously at [facility], patient unable to refill milrinone drip outpatient -continue milrinone drip -outpatient milrinone pump established with social service -continue lasix 40mg PO, digoxin, imdur, cozaar, toprol XL, aldactone -Cardiology on consult, Dr Thompson, appreciate recommendations -per cardiology, no other alternatives to milrinone Mild DAPHNE: -consider hemodynamic instability as etiology from severe cardiomyopathy -continue milrinone drip -monitor BP, currently stable -monitor BUN/Cr, presently at baseline History of Hypothyriodism: - TSH and free T4 are WNL - continue home synthroid History of Gout: -continue home Allopurinol and Colchicine (0.6mg q2days) PPX with pepcid and lovenox Patient seen and case discussed with attending, Dr. Finley <Leeanne Finley R - Last Filed: 01/12/18 07:54> Objective - Vital Signs/Intake and Output Vital Signs (last 24 hours): Temp Pulse Resp BP Pulse Ox 87.9 F L 70 20 134/63 97 01/12/18 06:00 01/12/18 06:00 01/12/18 06:00 01/12/18 06:00 01/11/18 06:00 Intake and Output: 01/12/18 01/12/18 06:59 18:59 Intake Total 360 Balance 360 - Medications Medications: Current Medications Acetaminophen (Tylenol 325mg Tab) 650 mg PO Q6H PRN PRN Reason: Pain, moderate (4-7) Last Admin: 01/11/18 04:52 Dose: 650 mg Allopurinol (Zyloprim) 200 mg PO BID [facility] Last Admin: 01/11/18 18:59 Dose: 200 mg Colchicine (Colocrys) 0.6 mg PO Q2D [facility] Last Admin: 01/10/18 17:45 Dose: 0.6 mg Digoxin (Digoxin) 0.125 mg PO Q48H [facility] Last Admin: 01/11/18 15:06 Dose: 0.125 mg Famotidine (Pepcid) 20 mg PO HS [facility] Last Admin: 01/11/18 22:32 Dose: 20 mg Furosemide (Lasix) 40 mg PO DAILY [facility] Last Admin: 11/07/18 10:55 Dose: 40 mg Heparin Sodium (Porcine) (Heparin) 5,000 units SC Q8 [facility]; Protocol Last Admin: 01/12/18 05:37 Dose: 5,000 units Milrinone Lactate/Dextrose 40 (mg/ Dextrose) 200 mls @ 7 mls/hr IV .Q24H [facility] Last Admin: 01/11/18 18:59 Dose: Not Given Isosorbide Mononitrate (Imdur Er) 30 mg PO DAILY [facility] Last Admin: 01/11/18 10:55 Dose: 30 mg Levothyroxine Sodium (Synthroid) 112 mcg PO ACB [facility] Last Admin: 01/11/18 08:39 Dose: 112 mcg Losartan Potassium (Cozaar) 25 mg PO DAILY [facility] Last Admin: 01/11/18 10:55 Dose: 25 mg Metoprolol Succinate (Toprol Xl) 25 mg PO BRK [facility] Last Admin: 01/11/18 08:39 Dose: 25 mg Spironolactone (Aldactone) 12.5 mg PO BID [facility] Last Admin: 01/11/18 18:58 Dose: 12.5 mg Warfarin Sodium (Coumadin) 7.5 mg PO ONCE [facility]; Protocol Stop: 01/12/18 10:01 - Labs Labs: 01/12/18 05:25 01/12/18 05:25 PT 18.5 SECONDS (9.4-12.5) H 01/12/18 05:25 INR 1.59 01/12/18 05:25 APTT 28.4 Seconds (25.1-36.5) 01/07/18 06:00 Attending/Attestation - Attestation I have personally seen and examined this patient.: Yes I have fully participated in the care of the patient.: Yes I have reviewed all pertinent clinical information, including history, physical exam and plan: Yes Notes (Text): Patient seen and examined by me with resident at 10:20AM with resident 01/11/18. Case including HPI, physical exam, and assessment and plan discussed with resident. Agree with above with following additions/corrections. Patient is an 87 year old female with past medical history significant for systolic heart failure s/p ICD on milrinone drip, atrial fibrillation on coumadin, hypothyroidism, gout, and arthritis that presented to the emergency room for medication refill and malfunctioning of milrinone drip. Patient states she feels pretty good. Daughters at bedside. Denies any shortness of breath today. Right hand and wrist pain has improved. No chest pain or palpitations. No fevers or chills. No nausea, vomiting, abdominal pain. No dysuria. No headaches or dizziness. No constipation or diarrhea. Physical exam: General: Awake and alert lying in bed in no acute distress HEENT: Normocephalic, atraumatic. Extraocular muscles intact, pupils equal and reactive, no scleral icterus. Oropharynx is pink and moist. Neck is supple. Cardiovascular: Normal rhythm. Normal S1, S2. No murmurs, rubs, or gallops appreciated Pulmonary: Normal respiratory effort. No rhonchi, rales, or wheezing appreciated Gastrointestinal: Soft, nondistended. Nontender. Positive bowel sounds all 4 quadrants. No guarding. Musculoskeletal: Moves all extremities. No edema appreciated. No calf tenderness. Central nervous system: AAO x3 Dermatologic: Skin warm and dry. Assessment and plan: Patient is an 87 year old female with past medical history significant for systolic heart failure s/p ICD on milrinone drip, atrial fibrillation on coumadin, hypothyroidism, gout, and arthritis that presented to the emergency room for medication refill and malfunctioning of milrinone drip. 1. Severe nonischemic cardiomyopathy. Chronic systolic CHF. S/P ICD. With some shortness of breath. Continue milrinone drip. Continue digoxin, imdur, cozaar, metoprolol, and aldactone. Cardiology following, recommendations appreciated. 2. Subtherapeutic INR. Continue with coumadin 7.5mg . INR 1.31. 3. DAPHNE. Likely secondary to severe cardiomyopathy. Creatinine stable. Continue to monitor. 4. Paroxysmal atrial fibrillation. Continue to bridge with lovenox. Patient to get Coumadin 7.5 mg tonight. Continue to monitor INR. 5. History of gout. Continue allopurinol and colchicine. Colchicine renally dosed. 6. Hypothyroidism. Continue synthroid. 7. Anemia of chronic disease. H&H stable. Patient at baseline. Continue to monitor. 8. GI/DVT prophylaxis. Pepcid/lovenox 9. D/C home once INR therapeutic. Case was discussed in detail with the patient regarding current diagnosis and treatment plan. All questions answered.
[2018-01-12 06:52] LABS: INR 1.59; PROTHROMBIN TIME 18.5 SECONDS (9.4-12.5)
[2018-01-12 06:55] LABS: BASO # 0.04 K/mm3 (0.0-2.0); BASO % 0.6 % (0.0-3.0); EOS # 0.5 (0.0-0.7); EOS % 7.1 % (1.5-5.0); GRAN # 3.19 (1.4-6.5); GRAN % 49.3 % (50.0-68.0); HEMOGLOBIN 10.1 g/dL (12.0-16.0); LYMPH % 30.3 % (22.0-35.0); MEAN CELL VOLUME 94.6 fl (80.0-105.0); MEAN CORPUSCULAR HEMOGLOBIN 30.2 pg (25.0-35.0); MEAN PLATELET VOLUME 11.1 fl (7.0-11.0); MONO # 0.8 (0.1-0.6); MONO % 12.7 % (1.0-6.0); RBC 3.34 10^6/uL (3.5-6.1); RED CELL DISTRIBUTION WIDTH 15.4 % (11.5-14.5); WHITE BLOOD COUNT 6.5 10^3/uL (4.5-11.0)
[2018-01-12 07:02] LABS: ALBUMIN 3.4 g/dL (3.0-4.8); CALCIUM 9.2 mg/dL (8.4-10.5)
--- NOTE | 2018-01-12 07:58 | CP.PCM.PN ---
Subjective - Date & Time of Evaluation Date of Evaluation: 01/12/18 Time of Evaluation: 07:00 - Subjective Subjective: Stable on 2R. She feels better. No CP or SOB. V/S noted. V. Paced PE: Lungs: few rhonchi Cor.: S1S2 Abd.: soft Ext.: min. edema Neuro.: alert Labs noted: INR = 1.59, Cr.= 1.4, K+= 5.2, H/H 01/04, UA = 3.5 Objective - Vital Signs/Intake and Output Vital Signs (last 24 hours): Temp Pulse Resp BP Pulse Ox 87.9 F L 70 20 134/63 97 01/12/18 06:00 01/12/18 06:00 01/12/18 06:00 01/12/18 06:00 01/11/18 06:00 Intake and Output: 01/12/18 01/12/18 06:59 18:59 Intake Total 360 Balance 360 - Medications Medications: Current Medications Acetaminophen (Tylenol 325mg Tab) 650 mg PO Q6H PRN PRN Reason: Pain, moderate (4-7) Last Admin: 01/11/18 04:52 Dose: 650 mg Allopurinol (Zyloprim) 200 mg PO BID [facility] Last Admin: 01/11/18 18:59 Dose: 200 mg Colchicine (Colocrys) 0.6 mg PO Q2D [facility] Last Admin: 01/10/18 17:45 Dose: 0.6 mg Digoxin (Digoxin) 0.125 mg PO Q48H [facility] Last Admin: 01/11/18 15:06 Dose: 0.125 mg Famotidine (Pepcid) 20 mg PO HS [facility] Last Admin: 01/11/18 22:32 Dose: 20 mg Furosemide (Lasix) 40 mg PO DAILY [facility] Last Admin: 01/11/18 10:55 Dose: 40 mg Heparin Sodium (Porcine) (Heparin) 5,000 units SC Q8 [facility]; Protocol Last Admin: 01/12/18 05:37 Dose: 5,000 units Milrinone Lactate/Dextrose 40 (mg/ Dextrose) 200 mls @ 7 mls/hr IV .Q24H [facility] Last Admin: 01/11/18 18:59 Dose: Not Given Isosorbide Mononitrate (Imdur Er) 30 mg PO DAILY [facility] Last Admin: 01/11/18 10:55 Dose: 30 mg Levothyroxine Sodium (Synthroid) 112 mcg PO ACB [facility] Last Admin: 01/11/18 08:39 Dose: 112 mcg Losartan Potassium (Cozaar) 25 mg PO DAILY [facility] Last Admin: 01/11/18 10:55 Dose: 25 mg Metoprolol Succinate (Toprol Xl) 25 mg PO BRK [facility] Last Admin: 01/11/18 08:39 Dose: 25 mg Spironolactone (Aldactone) 12.5 mg PO BID [facility] Last Admin: 01/11/18 18:58 Dose: 12.5 mg Warfarin Sodium (Coumadin) 7.5 mg PO ONCE [facility]; Protocol Stop: 01/12/18 10:01 - Labs Labs: 01/12/18 05:25 01/12/18 05:25 PT 18.5 SECONDS (9.4-12.5) H 01/12/18 05:25 INR 1.59 01/12/18 05:25 APTT 28.4 Seconds (25.1-36.5) 01/07/18 06:00 Assessment and Plan - Assessment and Plan (Free Text) Assessment: Dyspnea Hand pains CHF, home milrinone CCM with severe LVD and severe MR, TR and PH Chronic AF, on warfarin ICD CVA Hypothyroidism Former Smoker Gout H/O GB surgery, laminectomy, hernia repair DNR/NI status Plan: Re-Establish home milrinone infusion. Pt. planning to move to nursing facility in [place] (near her daughter) soon. Social SVC to clarify and coordinate with daughter regarding this transfer. OOB to chair as mireille. Warfarin 7.5 today. Heparin SQ to bridge. Monitor INRs daily until therapeutic. Analgesics
[2018-01-12] MEDS: Levothyroxine 112 MCG TAB PO SCH (08:10)
[2018-01-12] MEDS: Metoprolol Succinate 25 mg XL Tab PO SCH (08:10)
--- NOTE | 2018-01-12 11:33 | CP.PCM.PN ---
<Pam Russell - Last Filed: 01/12/18 11:17> Subjective - Date & Time of Evaluation Date of Evaluation: 01/12/18 Time of Evaluation: 10:00 - Subjective Subjective: Yvonne Orozco, PGY1 Medicine Progress Note Patient seen and examined at bedside this morning. No acute events reported overnight and offers no new complaints today. Rgiht hand pain is improved. Tolerating diet well. Denies CP, SOB, urinary complaints, numbness, tingling, swelling, fevers and nausea. Objective - Vital Signs/Intake and Output Vital Signs (last 24 hours): Temp Pulse Resp BP Pulse Ox 87.9 F L 70 20 130/60 97 01/12/18 06:00 01/12/18 06:00 01/12/18 06:00 01/12/18 10:51 01/11/18 06:00 Intake and Output: 01/12/18 01/12/18 06:59 18:59 Intake Total 360 Balance 360 - Medications Medications: Current Medications Acetaminophen (Tylenol 325mg Tab) 650 mg PO Q6H PRN PRN Reason: Pain, moderate (4-7) Last Admin: 01/11/18 04:52 Dose: 650 mg Allopurinol (Zyloprim) 200 mg PO BID [facility] Last Admin: 01/12/18 10:52 Dose: 200 mg Colchicine (Colocrys) 0.6 mg PO Q2D [facility] Last Admin: 01/10/18 17:45 Dose: 0.6 mg Digoxin (Digoxin) 0.125 mg PO Q48H [facility] Last Admin: 01/11/18 15:06 Dose: 0.125 mg Famotidine (Pepcid) 20 mg PO HS [facility] Last Admin: 01/11/18 22:32 Dose: 20 mg Furosemide (Lasix) 40 mg PO DAILY [facility] Last Admin: 01/12/18 10:51 Dose: 40 mg Heparin Sodium (Porcine) (Heparin) 5,000 units SC Q8 [facility]; Protocol Last Admin: 01/12/18 05:37 Dose: 5,000 units Milrinone Lactate/Dextrose 40 (mg/ Dextrose) 200 mls @ 7 mls/hr IV .Q24H [facility] Last Admin: 01/11/18 18:59 Dose: Not Given Isosorbide Mononitrate (Imdur Er) 30 mg PO DAILY [facility] Last Admin: 01/12/18 10:51 Dose: 30 mg Levothyroxine Sodium (Synthroid) 112 mcg PO ACB [facility] Last Admin: 01/12/18 08:10 Dose: 112 mcg Losartan Potassium (Cozaar) 25 mg PO DAILY [facility] Last Admin: 01/12/18 10:51 Dose: 25 mg Metoprolol Succinate (Toprol Xl) 25 mg PO BRK [facility] Last Admin: 01/12/18 08:10 Dose: 25 mg Spironolactone (Aldactone) 12.5 mg PO BID [facility] Last Admin: 01/12/18 10:50 Dose: 12.5 mg - Labs Labs: 01/12/18 05:25 01/12/18 05:25 PT 18.5 SECONDS (9.4-12.5) H 01/12/18 05:25 INR 1.59 01/12/18 05:25 APTT 28.4 Seconds (25.1-36.5) 01/07/18 06:00 - Constitutional Appears: No Acute Distress - Head Exam Head Exam: ATRAUMATIC, NORMAL INSPECTION - Eye Exam Eye Exam: EOMI Pupil Exam: Fixed - ENT Exam ENT Exam: Mucous Membranes Moist - Respiratory Exam Respiratory Exam: Clear to Ausculation Bilateral. absent: Accessory Muscle Use, Wheezes - Cardiovascular Exam Cardiovascular Exam: REGULAR RHYTHM, +S1, +S2 - GI/Abdominal Exam GI & Abdominal Exam: Normal Bowel Sounds. absent: Guarding, Rigid - Extremities Exam Extremities Exam: Normal Inspection. absent: Calf Tenderness - Neurological Exam Neurological Exam: Alert, Oriented x3 - Skin Skin Exam: Normal Color, Warm Assessment and Plan - Assessment and Plan (Free Text) Assessment: This is an 87 year old female with PMH of systolic heart failure (Last EF 8% in 2016) with AICD and on milrinone drip, Atrial fibrillation on warfarin, hypothyroidism, gout, arthritis, presents for management of systolic heart failure and DAPHNE . Patient planning to move to nursing facility in [place] near daughter this Tuesday. Plan: Systolic heart failure s/p ICD: -last EF 8% in 03/30/2016, severe non ischemic cardiomyopathy -per social service, infusion company will not cover milrinone drip in [place], attempting to find alternative option -Previously at [facility], patient unable to refill milrinone drip outpatient -continue milrinone drip -continue lasix 40mg PO, digoxin, imdur, cozaar, toprol XL, aldactone -Cardiology on consult, Dr Thompson, appreciate recommendations -per cardiology, no other alternatives to milrinone History of atrial fibrillation: -continue coumadin, 7.5mg -currently rate controlled, s/p ICD -INR is 1.59 today from 1.31 yesterday, improving -continue to monitor INR -per cardiology, will use heparin sc as bridge Mild DAPHNE: -consider hemodynamic instability as etiology from severe cardiomyopathy -continue milrinone drip -monitor BP, currently stable -monitor BUN/Cr, presently at baseline History of Hypothyriodism: - TSH and free T4 are WNL - continue home synthroid History of Gout: -continue home Allopurinol and Colchicine (0.6mg q2days) PPX with pepcid and lovenox Patient seen and case discussed with attending, Dr. Finley <Leeanne Finley R - Last Filed: 01/13/18 09:30> Objective - Vital Signs/Intake and Output Vital Signs (last 24 hours): Temp Pulse Resp BP Pulse Ox 98.2 F 70 20 118/55 L 100 01/13/18 06:00 01/13/18 07:47 01/13/18 06:00 01/13/18 07:47 01/13/18 06:00 Intake and Output: 01/13/18 01/13/18 06:59 18:59 Intake Total 1464 Balance 1464 - Medications Medications: Current Medications Acetaminophen (Tylenol 325mg Tab) 650 mg PO Q6H PRN PRN Reason: Pain, moderate (4-7) Last Admin: 01/11/18 04:52 Dose: 650 mg Allopurinol (Zyloprim) 200 mg PO BID [facility] Last Admin: 01/12/18 17:20 Dose: 200 mg Colchicine (Colocrys) 0.6 mg PO Q2D [facility] Last Admin: 01/12/18 17:19 Dose: 0.6 mg Digoxin (Digoxin) 0.125 mg PO Q48H [facility] Last Admin: 01/11/18 15:06 Dose: 0.125 mg Famotidine (Pepcid) 20 mg PO HS [facility] Last Admin: 01/12/18 22:21 Dose: 20 mg Furosemide (Lasix) 40 mg PO DAILY [facility] Last Admin: 01/12/18 10:51 Dose: 40 mg Milrinone Lactate/Dextrose 40 (mg/ Dextrose) 200 mls @ 7 mls/hr IV .Q24H [facility] Last Admin: 01/11/18 18:59 Dose: Not Given Isosorbide Mononitrate (Imdur Er) 30 mg PO DAILY [facility] Last Admin: 01/12/18 10:51 Dose: 30 mg Levothyroxine Sodium (Synthroid) 112 mcg PO ACB [facility] Last Admin: 01/13/18 07:47 Dose: 112 mcg Losartan Potassium (Cozaar) 25 mg PO DAILY [facility] Last Admin: 01/12/18 10:51 Dose: 25 mg Metoprolol Succinate (Toprol Xl) 25 mg PO BRK [facility] Last Admin: 01/13/18 07:47 Dose: 25 mg Spironolactone (Aldactone) 12.5 mg PO BID [facility] Last Admin: 01/12/18 17:19 Dose: 12.5 mg Warfarin Sodium (Coumadin) 4 mg PO 1800 [facility]; Protocol - Labs Labs: 01/13/18 06:55 01/13/18 06:55 PT 26.2 SECONDS (9.4-12.5) H 01/13/18 06:55 INR 2.24 01/13/18 06:55 APTT 28.4 Seconds (25.1-36.5) 01/07/18 06:00 Attending/Attestation - Attestation I have personally seen and examined this patient.: Yes I have fully participated in the care of the patient.: Yes I have reviewed all pertinent clinical information, including history, physical exam and plan: Yes Notes (Text): Patient seen and examined by me with resident at 9:45AM with resident 01/12/18. Case including HPI, physical exam, and assessment and plan discussed with resident. Agree with above with following additions/corrections. Patient is an 87 year old female with past medical history significant for systolic heart failure s/p ICD on milrinone drip, atrial fibrillation on coumadin, hypothyroidism, gout, and arthritis that presented to the emergency room for medication refill and malfunctioning of milrinone drip. Patient states she feels much better today. Patient states she walked to the bathroom today without feeling short of breath. She states her right wrist and finger pain is "much better." Patient denies chest pain or palpitations. No fevers or chills. No nausea, vomiting, abdominal pain. No dysuria. No headaches or dizziness. No constipation or diarrhea. Physical exam: General: Awake and alert lying in bed in no acute distress HEENT: Normocephalic, atraumatic. Extraocular muscles intact, pupils equal and reactive, no scleral icterus. Oropharynx is pink and moist. Neck is supple. Cardiovascular: Normal rhythm. Normal S1, S2. No murmurs, rubs, or gallops appreciated Pulmonary: Normal respiratory effort. No rhonchi, rales, or wheezing appreciated Gastrointestinal: Soft, nondistended. Nontender. Positive bowel sounds all 4 quadrants. No guarding. Musculoskeletal: Moves all extremities. No edema appreciated. No calf ten derness. Central nervous system: AAO x3 Dermatologic: Skin warm and dry. Assessment and plan: Patient is an 87 year old female with past medical history significant for systolic heart failure s/p ICD on milrinone drip, atrial fibrillation on coumadin, hypothyroidism, gout, and arthritis that presented to the emergency room for medication refill and malfunctioning of milrinone drip. 1. Severe nonischemic cardiomyopathy. Chronic systolic CHF. S/P ICD. Shortness of breath improved. Continue milrinone drip. Continue digoxin, imdur, cozaar, metoprolol, and aldactone. Cardiology following, recommendations appreciated. 2. Subtherapeutic INR. Continue with coumadin 7.5mg. Continue to monitor INR. 3. DAPHNE. Likely secondary to severe cardiomyopathy. Creatinine stable. Continue to monitor. 4. Paroxysmal atrial fibrillation. Patient to get Coumadin 7.5 mg tonight. Continue to monitor INR. 5. History of gout. Continue allopurinol and colchicine. 6. Hypothyroidism. Continue synthroid. 7. Anemia of chronic disease. H&H stable. Patient at baseline. Continue to monitor. 8. GI/DVT prophylaxis. Pepcid/lovenox Case was discussed in detail with the patient regarding current diagnosis and treatment plan. All questions answered.
[2018-01-13 07:25] LABS: INR 2.24; PROTHROMBIN TIME 26.2 SECONDS (9.4-12.5)
[2018-01-13 07:26] LABS: BASO # 0.03 K/mm3 (0.0-2.0); BASO % 0.5 % (0.0-3.0); EOS # 0.5 (0.0-0.7); EOS % 7.3 % (1.5-5.0); GRAN # 2.93 (1.4-6.5); GRAN % 44.7 % (50.0-68.0); HEMOGLOBIN 10.2 g/dL (12.0-16.0); LYMPH # 2.6 (1.2-3.4); MEAN CELL VOLUME 95.5 fl (80.0-105.0); MEAN CORPUSCULAR HEMOGLOBIN 30.8 pg (25.0-35.0); MEAN CORPUSCULAR HGB CONC 32.3 g/dl (31.0-37.0); MEAN PLATELET VOLUME 10.3 fl (7.0-11.0); MONO # 0.6 (0.1-0.6); MONO % 8.5 % (1.0-6.0); RBC 3.31 10^6/uL (3.5-6.1); RED CELL DISTRIBUTION WIDTH 15.5 % (11.5-14.5); WHITE BLOOD COUNT 6.6 10^3/uL (4.5-11.0)
[2018-01-13 07:27] LABS: ALB/GLOB RATIO 1.1 (1.1-1.8); ALBUMIN 3.5 g/dL (3.0-4.8); CALCIUM 9.3 mg/dL (8.4-10.5)
[2018-01-13] MEDS: Levothyroxine 112 MCG TAB PO SCH (07:47)
[2018-01-13] MEDS: Metoprolol Succinate 25 mg XL Tab PO SCH (07:47)
--- NOTE | 2018-01-13 08:06 | CP.PCM.PN ---
Subjective - Date & Time of Evaluation Date of Evaluation: 01/13/18 Time of Evaluation: 07:00 - Subjective Subjective: Stable on 2R. She feels OK. No CP or SOB. She wants to go home. V/S noted. V. Paced PE: Lungs: few rhonchi Cor.: S1S2 Abd.: soft Ext.: min. edema Neuro.: alert Labs noted: INR = 2.24, Cr.= 1.8, K+= 5.1, H/H 01/04 Objective - Vital Signs/Intake and Output Vital Signs (last 24 hours): Temp Pulse Resp BP Pulse Ox 98.2 F 70 20 118/55 L 100 01/13/18 06:00 01/13/18 07:47 01/13/18 06:00 01/13/18 07:47 01/13/18 06:00 Intake and Output: 01/13/18 01/13/18 06:59 18:59 Intake Total 1464 Balance 1464 - Medications Medications: Current Medications Acetaminophen (Tylenol 325mg Tab) 650 mg PO Q6H PRN PRN Reason: Pain, moderate (4-7) Last Admin: 01/11/18 04:52 Dose: 650 mg Allopurinol (Zyloprim) 200 mg PO BID [facility] Last Admin: 01/12/18 17:20 Dose: 200 mg Colchicine (Colocrys) 0.6 mg PO Q2D [facility] Last Admin: 01/12/18 17:19 Dose: 0.6 mg Digoxin (Digoxin) 0.125 mg PO Q48H [facility] Last Admin: 01/11/18 15:06 Dose: 0.125 mg Famotidine (Pepcid) 20 mg PO HS [facility] Last Admin: 01/12/18 22:21 Dose: 20 mg Furosemide (Lasix) 40 mg PO DAILY [facility] Last Admin: 01/12/18 10:51 Dose: 40 mg Milrinone Lactate/Dextrose 40 (mg/ Dextrose) 200 mls @ 7 mls/hr IV .Q24H [facility] Last Admin: 01/11/18 18:59 Dose: Not Given Isosorbide Mononitrate (Imdur Er) 30 mg PO DAILY [facility] Last Admin: 01/12/18 10:51 Dose: 30 mg Levothyroxine Sodium (Synthroid) 112 mcg PO ACB [facility] Last Admin: 01/13/18 07:47 Dose: 112 mcg Losartan Potassium (Cozaar) 25 mg PO DAILY [facility] Last Admin: 01/12/18 10:51 Dose: 25 mg Metoprolol Succinate (Toprol Xl) 25 mg PO BRK [facility] Last Admin: 01/13/18 07:47 Dose: 25 mg Spironolactone (Aldactone) 12.5 mg PO BID [facility] Last Admin: 01/12/18 17:19 Dose: 12.5 mg Warfarin Sodium (Coumadin) 4 mg PO 1800 [facility]; Protocol - Labs Labs: 01/13/18 06:55 01/13/18 06:55 PT 26.2 SECONDS (9.4-12.5) H 01/13/18 06:55 INR 2.24 01/13/18 06:55 APTT 28.4 Seconds (25.1-36.5) 01/07/18 06:00 Assessment and Plan - Assessment and Plan (Free Text) Assessment: Dyspnea Hand pains CHF, home milrinone CCM with severe LVD and severe MR, TR and PH Chronic AF, on warfarin ICD CVA Hypothyroidism Former Smoker Gout H/O GB surgery, laminectomy, hernia repair DNR/NI status Plan: Re-Establish home milrinone infusion. Pt. planning to move to nursing facility in [place] (near her daughter) soon. Social SVC to clarify and coordinate with daughter regarding this transfer. OOB to chair as mireille. Warfarin 4 mg. daily. Monitor INRs daily while in hospital. Analgesics Home soon.
--- NOTE | 2018-01-13 13:49 | CP.PCM.PN ---
<Pam Russell - Last Filed: 01/13/18 13:50> Subjective - Date & Time of Evaluation Date of Evaluation: 01/13/18 Time of Evaluation: 09:45 - Subjective Subjective: Yvonne Orozco, PGY1 Medicine Progress Note Patient seen and examined at bedside this morning. No acute events reported overnight. Resting comfortably and tolerating diet without complaint. Offers no new concerns today. Denies CP, SOB, urinary complaints, numbness, tingling, swelling, fevers and nausea. Objective - Vital Signs/Intake and Output Vital Signs (last 24 hours): Temp Pulse Resp BP Pulse Ox 98.2 F 70 20 102/43 L 100 01/13/18 06:00 01/13/18 07:47 01/13/18 06:00 01/13/18 10:59 01/13/18 06:00 Intake and Output: 01/13/18 01/13/18 06:59 18:59 Intake Total 1464 Balance 1464 - Medications Medications: Current Medications Acetaminophen (Tylenol 325mg Tab) 650 mg PO Q6H PRN PRN Reason: Pain, moderate (4-7) Last Admin: 01/11/18 04:52 Dose: 650 mg Allopurinol (Zyloprim) 200 mg PO BID [facility] Last Admin: 01/13/18 10:58 Dose: 200 mg Colchicine (Colocrys) 0.6 mg PO Q2D [facility] Last Admin: 01/12/18 17:19 Dose: 0.6 mg Digoxin (Digoxin) 0.125 mg PO Q48H [facility] Last Admin: 01/11/18 15:06 Dose: 0.125 mg Famotidine (Pepcid) 20 mg PO HS [facility] Last Admin: 01/12/18 22:21 Dose: 20 mg Furosemide (Lasix) 40 mg PO DAILY [facility] Last Admin: 01/13/18 10:59 Dose: 40 mg Milrinone Lactate/Dextrose 40 (mg/ Dextrose) 200 mls @ 7 mls/hr IV .Q24H [facility] Last Admin: 01/11/18 18:59 Dose: Not Given Isosorbide Mononitrate (Imdur Er) 30 mg PO DAILY [facility] Last Admin: 01/13/18 10:59 Dose: 30 mg Levothyroxine Sodium (Synthroid) 112 mcg PO ACB [facility] Last Admin: 01/13/18 07:47 Dose: 112 mcg Losartan Potassium (Cozaar) 25 mg PO DAILY [facility] Last Admin: 01/13/18 10:59 Dose: Not Given Metoprolol Succinate (Toprol Xl) 25 mg PO BRK [facility] Last Admin: 01/13/18 07:47 Dose: 25 mg Spironolactone (Aldactone) 12.5 mg PO BID [facility] Last Admin: 01/13/18 10:59 Dose: 12.5 mg Warfarin Sodium (Coumadin) 4 mg PO 1800 [facility]; Protocol - Labs Labs: 01/13/18 06:55 01/13/18 06:55 PT 26.2 SECONDS (9.4-12.5) H 01/13/18 06:55 INR 2.24 01/13/18 06:55 APTT 28.4 Seconds (25.1-36.5) 01/07/18 06:00 - Additional Findings Additional findings: - Constitutional Appears: No Acute Distress - Head Exam Head Exam: ATRAUMATIC, NORMAL INSPECTION - Eye Exam Eye Exam: EOMI Pupil Exam: Fixed - ENT Exam ENT Exam: Mucous Membranes Moist - Respiratory Exam Respiratory Exam: Clear to Ausculation Bilateral. absent: Accessory Muscle Use, Wheezes - Cardiovascular Exam Cardiovascular Exam: REGULAR RHYTHM, +S1, +S2 - GI/Abdominal Exam GI & Abdominal Exam: Normal Bowel Sounds. absent: Guarding, Rigid - Extremities Exam Extremities Exam: Normal Inspection. absent: Calf Tenderness - Neurological Exam Neurological Exam: Alert, Oriented x3 - Skin Skin Exam: Normal Color, Warm Assessment and Plan - Assessment and Plan (Free Text) Assessment: This is an 87 year old female with PMH of systolic heart failure (Last EF 8% in 2016) with AICD and on milrinone drip, Atrial fibrillation on warfarin, hypothyroidism, gout, arthritis, presents for management of systolic heart failure and DAPHNE . Patient planning to move to nursing facility in [place] near daughter this Tuesday. Plan: Systolic heart failure s/p ICD: -last EF 8% in 03/30/2016, severe non ischemic cardiomyopathy -per daughter who is now POA, patient will not go to [place] on Tuesday. Daughter is applying for medicaid on behalf of patient and states patient will not move to [place] until approved. Due to patient's previous status of moving to [place], agent discontinued eligibility for milrinone infusion pump -will continue to attempt home milrinone insusion pump -Previously at [facility], patient unable to refill milrinone drip outpatient -continue milrinone drip for now -continue lasix 40mg PO, digoxin, imdur, cozaar, toprol XL, aldactone -Cardiology on consult, Dr Thompson, appreciate recommendations -per cardiology, no other alternatives to milrinone History of atrial fibrillation: -continue coumadin, will start coumadin 4mg dose per recommendations -currently rate controlled, s/p ICD -INR is 2.24 from 1.59 yesterday, improving -continue to monitor INR Mild DAPHNE: -consider hemodynamic instability as etiology from severe cardiomyopathy -continue milrinone drip -monitor BP, currently stable -monitor BUN/Cr, presently at baseline History of Hypothyriodism: - TSH and free T4 are WNL - continue home synthroid History of Gout: -continue home Allopurinol and Colchicine (0.6mg q2days) PPX with pepcid and lovenox Patient seen and case discussed with attending, Dr. Finley <Leeanne Finley R - Last Filed: 01/13/18 14:20> Objective - Vital Signs/Intake and Output Vital Signs (last 24 hours): Temp Pulse Resp BP Pulse Ox 97.8 F 80 20 109/60 100 01/13/18 12:00 01/13/18 12:00 01/13/18 12:00 01/13/18 12:00 01/13/18 06:00 Intake and Output: 01/13/18 01/13/18 06:59 18:59 Intake Total 1464 Balance 1464 - Medications Medications: Current Medications Acetaminophen (Tylenol 325mg Tab) 650 mg PO Q6H PRN PRN Reason: Pain, moderate (4-7) Last Admin: 01/11/18 04:52 Dose: 650 mg Allopurinol (Zyloprim) 200 mg PO BID [facility] Last Admin: 01/13/18 10:58 Dose: 200 mg Colchicine (Colocrys) 0.6 mg PO Q2D [facility] Last Admin: 01/12/18 17:19 Dose: 0.6 mg Digoxin (Digoxin) 0.125 mg PO Q48H [facility] Last Admin: 01/11/18 15:06 Dose: 0.125 mg Famotidine (Pepcid) 20 mg PO HS [facility] Last Admin: 01/12/18 22:21 Dose: 20 mg Furosemide (Lasix) 40 mg PO DAILY [facility] Last Admin: 01/13/18 10:59 Dose: 40 mg Milrinone Lactate/Dextrose 40 (mg/ Dextrose) 200 mls @ 7 mls/hr IV .Q24H [facility] Last Admin: 01/11/18 18:59 Dose: Not Given Isosorbide Mononitrate (Imdur Er) 30 mg PO DAILY [facility] Last Admin: 01/13/18 10:59 Dose: 30 mg Levothyroxine Sodium (Synthroid) 112 mcg PO ACB [facility] Last Admin: 01/13/18 07:47 Dose: 112 mcg Losartan Potassium (Cozaar) 25 mg PO DAILY [facility] Last Admin: 01/13/18 10:59 Dose: Not Given Metoprolol Succinate (Toprol Xl) 25 mg PO BRK [facility] Last Admin: 01/13/18 07:47 Dose: 25 mg Spironolactone (Aldactone) 12.5 mg PO BID [facility] Last Admin: 01/13/18 10:59 Dose: 12.5 mg Warfarin Sodium (Coumadin) 4 mg PO 1800 [facility]; Protocol - Labs Labs: 01/13/18 06:55 01/13/18 06:55 PT 26.2 SECONDS (9.4-12.5) H 01/13/18 06:55 INR 2.24 01/13/18 06:55 APTT 28.4 Seconds (25.1-36.5) 01/07/18 06:00 Attending/Attestation - Attestation I have personally seen and examined this patient.: Yes I have fully participated in the care of the patient.: Yes I have reviewed all pertinent clinical information, including history, physical exam and plan: Yes Notes (Text): Patient seen and examined by me with resident at 11:30AM with resident 01/13/18. Case including HPI, physical exam, and assessment and plan discussed with resident. Agree with above with following additions/corrections. Patient is an 87 year old female with past medical history significant for systolic heart failure s/p ICD on milrinone drip, atrial fibrillation on coumadin, hypothyroidism, gout, and arthritis that presented to the emergency room for medication refill and malfunctioning of milrinone drip. Patient states she feels pretty good. Patient's daughter at bedside. Patient is asking when the "needle in my port" will be changed. Nurse notified to change needle. Patient denies any shortness of breath. States right had pain has resolved today. No chest pain or palpitations. No fevers or chills. No nausea, vomiting, abdominal pain. No dysuria. No headaches or dizziness. No constipation or diarrhea. Physical exam: General: Awake and alert lying in bed in no acute distress HEENT: Normocephalic, atraumatic. Extraocular muscles intact, pupils equal and reactive, no scleral icterus. Oropharynx is pink and moist. Neck is supple. Cardiovascular: Normal rhythm. Normal S1, S2. No murmurs, rubs, or gallops appreciated Pulmonary: Normal respiratory effort. No rhonchi, rales, or wheezing appreciated Gastrointestinal: Soft, nondistended. Nontender. Positive bowel sounds all 4 quadrants. No guarding. Musculoskeletal: Moves all extremities. No edema appreciated. No calf tenderness. Central nervous system: AAO x3 Dermatologic: Skin warm and dry. Assessment and plan: Patient is an 87 year old female with past medical history significant for systolic heart failure s/p ICD on milrinone drip, atrial fibrillation on coumadin, hypothyroidism, gout, and arthritis that presented to the emergency room for medication refill and malfunctioning of milrinone drip. 1. Severe nonischemic cardiomyopathy. Chronic systolic CHF. S/P ICD. Continue milrinone drip. Continue digoxin, imdur, cozaar, metoprolol, and aldactone. Cardiology following, recommendations appreciated. 2. Subtherapeutic INR. Resolved. Continue home dose Coumadin 4mg daily. Jorge nue to monitor INR. 3. DAPHNE. Likely secondary to severe cardiomyopathy. Creatinine stable. Continue to monitor. 4. Paroxysmal atrial fibrillation. INR therapeutic. Continue home Coumadin dose of 4mg PO daily. Continue to monitor INR. 5. History of gout. Continue allopurinol and colchicine. 6. Hypothyroidism. Continue synthroid. 7. Anemia of chronic disease. H&H stable. Patient at baseline. Continue to monitor. 8. GI/DVT prophylaxis. Pepcid/lovenox Case was discussed in detail with the patient and patient's daughter at bedside regarding current diagnosis and treatment plan. All questions answered.
[2018-01-13] MEDS: Digoxin 125 mcg (0.125 mg) Tab PO SCH (14:25)
[2018-01-13 14:26] VITALS: PULSE 80
[2018-01-14] MEDS: MILRINONE IV SCH (03:01)
[2018-01-14] MEDS: WATER IV SCH (03:01)
[2018-01-14] MEDS: DEXTROSE 5% IV SCH (03:01)
[2018-01-14 06:34] VITALS: O2SAT 100
--- NOTE | 2018-01-14 07:50 | CP.PCM.PN ---
Subjective - Date & Time of Evaluation Date of Evaluation: 01/14/18 Time of Evaluation: 07:00 - Subjective Subjective: Stable on 2R. She feels OK. No CP or SOB. V/S noted. V. Paced PE: Lungs: few rhonchi Cor.: S1S2 Abd.: soft Ext.: min. edema Neuro.: alert Labs 01/13 noted: INR = 2.24, Cr.= 1.8, K+= 5.1, H/H 01/04. Todays labs pending. Objective - Vital Signs/Intake and Output Vital Signs (last 24 hours): Temp Pulse Resp BP Pulse Ox 97.8 F 70 19 129/67 100 01/14/18 06:00 01/14/18 06:00 01/14/18 06:00 01/14/18 06:00 01/14/18 06:00 Intake and Output: 01/14/18 01/14/18 06:59 18:59 Intake Total 330 84 Balance 330 84 - Medications Medications: Current Medications Acetaminophen (Tylenol 325mg Tab) 650 mg PO Q6H PRN PRN Reason: Pain, moderate (4-7) Last Admin: 01/13/18 18:46 Dose: 650 mg Allopurinol (Zyloprim) 200 mg PO BID [facility] Last Admin: 01/13/18 18:39 Dose: 200 mg Colchicine (Colocrys) 0.6 mg PO Q2D [facility] Last Admin: 01/12/18 17:19 Dose: 0.6 mg Digoxin (Digoxin) 0.125 mg PO Q48H [facility] Last Admin: 01/13/18 14:25 Dose: 0.125 mg Famotidine (Pepcid) 20 mg PO HS [facility] Last Admin: 01/13/18 21:03 Dose: 20 mg Furosemide (Lasix) 40 mg PO DAILY [facility] Last Admin: 01/13/18 10:59 Dose: 40 mg Milrinone Lactate/Dextrose 40 (mg/ Dextrose) 200 mls @ 7 mls/hr IV .Q24H [facility] Last Admin: 01/14/18 03:01 Dose: 7 mls/hr Isosorbide Mononitrate (Imdur Er) 30 mg PO DAILY [facility] Last Admin: 01/13/18 10:59 Dose: 30 mg Levothyroxine Sodium (Synthroid) 112 mcg PO ACB [facility] Last Admin: 01/13/18 07:47 Dose: 112 mcg Losartan Potassium (Cozaar) 25 mg PO DAILY [facility] Last Admin: 01/13/18 10:59 Dose: Not Given Metoprolol Succinate (Toprol Xl) 25 mg PO BRK [facility] Last Admin: 01/13/18 07:47 Dose: 25 mg Spironolactone (Aldactone) 12.5 mg PO BID [facility] Last Admin: 01/13/18 18:39 Dose: 12.5 mg Warfarin Sodium (Coumadin) 4 mg PO 1800 [facility]; Protocol Last Admin: 01/13/18 18:39 Dose: 4 mg - Labs Labs: 01/13/18 06:55 01/13/18 06:55 PT 26.2 SECONDS (9.4-12.5) H 01/13/18 06:55 INR 2.24 01/13/18 06:55 APTT 28.4 Seconds (25.1-36.5) 01/07/18 06:00 Assessment and Plan - Assessment and Plan (Free Text) Assessment: Dyspnea Hand pains CHF, home milrinone 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 Re-Establish home milrinone infusion. Pt. planning to move to nursing facility in [place] (near her daughter) soon. Social SVC to clarify and coordinate with daughter regarding this transfer. OOB to chair as mireille. Warfarin 4 mg. daily. Monitor INRs daily while in hospital. Analgesics Home today. Pt. Moving to [place] Tuesday. Has appointment with physician Tuesday.
[2018-01-14 07:58] LABS: INR 2.38; PROTHROMBIN TIME 27.9 SECONDS (9.4-12.5)
[2018-01-14 08:03] LABS: BASO # 0.04 K/mm3 (0.0-2.0); BASO % 0.6 % (0.0-3.0); EOS # 0.4 (0.0-0.7); EOS % 6.4 % (1.5-5.0); GRAN # 2.84 (1.4-6.5); GRAN % 45.1 % (50.0-68.0); HEMOGLOBIN 10.6 g/dL (12.0-16.0); LYMPH # 2.5 (1.2-3.4); MEAN CORPUSCULAR HEMOGLOBIN 30.9 pg (25.0-35.0); MEAN CORPUSCULAR HGB CONC 32.5 g/dl (31.0-37.0); MEAN PLATELET VOLUME 10.1 fl (7.0-11.0); MONO # 0.6 (0.1-0.6); MONO % 8.9 % (1.0-6.0); RBC 3.43 10^6/uL (3.5-6.1); RED CELL DISTRIBUTION WIDTH 15.6 % (11.5-14.5); WHITE BLOOD COUNT 6.3 10^3/uL (4.5-11.0)
[2018-01-14 08:17] LABS: ALB/GLOB RATIO 1.1 (1.1-1.8); ALBUMIN 3.6 g/dL (3.0-4.8); CALCIUM 9.4 mg/dL (8.4-10.5)
[2018-01-14] MEDS ORDERED: Sod Polystyrene Sulf 15 gm/60 ml Susp PO ONE (08:28)
[2018-01-14] MEDS: Metoprolol Succinate 25 mg XL Tab PO SCH (09:20)
[2018-01-14] MEDS: Levothyroxine 112 MCG TAB PO SCH (09:20)
[2018-01-14 18:13] VITALS: BP 133/58; PULSE 98; RESP 20; TEMP 98
--- NOTE | 2018-01-14 20:31 | CP.PCM.DIS ---
<Pam Russell - Last Filed: 01/15/18 18:53> Provider - Provider Date of Admission: 01/09/18 13:18 Attending physician: Marvin Guerrero MD Primary care physician: Boaz Green MD Consults: Cardio - [facility] Palliative care Time Spent in preparation of Discharge (in minutes): 35 Hospital Course - Lab Results Lab Results: Micro Results 01/06/18 21:58 Urine,Clean Catch Urine Culture - Final No Growth (<1,000 CFU/ML) Most Recent Lab Values WBC 6.3 10^3/uL (4.5-11.0) 01/14/18 07:30 RBC 3.43 10^6/uL (3.5-6.1) L 01/14/18 07:30 Hgb 10.6 g/dL (12.0-16.0) L 01/14/18 07:30 Hct 32.6 % (36.0-48.0) L 01/14/18 07:30 MCV 95.0 fl (80.0-105.0) 01/14/18 07:30 MCH 30.9 pg (25.0-35.0) 01/14/18 07:30 MCHC 32.5 g/dl (31.0-37.0) 01/14/18 07:30 RDW 15.6 % (11.5-14.5) H 01/14/18 07:30 Plt Count 202 10^3/uL (120.0-450.0) 01/14/18 07:30 MPV 10.1 fl (7.0-11.0) 01/14/18 07:30 Gran % 45.1 % (50.0-68.0) L 01/14/18 07:30 Lymph % (Auto) 39.0 % (22.0-35.0) H 01/14/18 07:30 [place] % (Auto) 8.9 % (1.0-6.0) H 01/14/18 07:30 Eos % (Auto) 6.4 % (1.5-5.0) H 01/14/18 07:30 Baso % (Auto) 0.6 % (0.0-3.0) 01/14/18 07:30 Gran # 2.84 (1.4-6.5) 01/14/18 07:30 Lymph # (Auto) 2.5 (1.2-3.4) 01/14/18 07:30 [place] # (Auto) 0.6 (0.1-0.6) 01/14/18 07:30 Eos # (Auto) 0.4 (0.0-0.7) 01/14/18 07:30 Baso # (Auto) 0.04 K/mm3 (0.0-2.0) 01/14/18 07:30 PT 27.9 SECONDS (9.4-12.5) H 01/14/18 07:30 INR 2.38 01/14/18 07:30 APTT 28.4 Seconds (25.1-36.5) 01/07/18 06:00 Sodium 134 mmol/L (132-148) 01/14/18 07:30 Potassium 5.2 mmol/L (3.6-5.0) H 01/14/18 07:30 Chloride 99 mmol/L (98-107) 01/14/18 07:30 Carbon Dioxide 28 mmol/L (21-33) 01/14/18 07:30 Anion Gap 13 (10-20) 01/14/18 07:30 BUN 42 mg/dL (7-21) H 01/14/18 07:30 Creatinine 1.7 mg/dl (0.7-1.2) H 01/14/18 07:30 Est GFR ( Amer) 34 01/14/18 07:30 Est GFR (Non-Af Amer) 28 01/14/18 07:30 Random Glucose 97 mg/dL (70-110) 01/14/18 07:30 Hemoglobin A1c 6.2 % (4.2-6.5) 01/07/18 06:00 Uric Acid 3.5 mg/dL (2.5-6.2) 01/11/18 06:00 Calcium 9.4 mg/dL (8.4-10.5) 01/14/18 07:30 Phosphorus 3.5 mg/dL (2.5-4.5) 01/07/18 06:00 Magnesium 1.9 mg/dL (1.7-2.2) 01/07/18 06:00 Total Bilirubin 0.4 mg/dL (0.2-1.3) 01/14/18 07:30 AST 48 U/L (14-36) H 01/14/18 07:30 ALT 46 U/L (7-56) 01/14/18 07:30 Alkaline Phosphatase 125 U/L (38-126) 01/14/18 07:30 Troponin I 0.06 ng/mL 01/06/18 18:30 NT-Pro-B Natriuret Pep 3280 pg/mL (0-450) H 01/06/18 18:30 Total Protein 6.8 g/dL (5.8-8.3) 01/14/18 07:30 Albumin 3.6 g/dL (3.0-4.8) 01/14/18 07:30 Globulin 3.2 gm/dL 01/14/18 07:30 Albumin/Globulin Ratio 1.1 (1.1-1.8) 01/14/18 07:30 Triglycerides 44 mg/dL (35-160) 01/07/18 06:00 Cholesterol 129 mg/dL (130-200) L 01/07/18 06:00 LDL Cholesterol Direct 74 mg/dL (0-129) 01/07/18 06:00 HDL Cholesterol 44 mg/dL (29-60) 01/07/18 06:00 Free T4 1.52 ng/dL (0.78-2.19) 01/07/18 06:00 TSH 3rd Generation 3.35 mIU/mL (0.46-4.68) 01/07/18 06:00 Urine Color Light yellow (YELLOW) 01/06/18 20:00 Urine Appearance Clear (CLEAR) 01/06/18 20:00 Urine pH 6.0 (4.7-8.0) 01/06/18 20:00 Ur Specific [place] 1.015 (1.005-1.035) 01/06/18 20:00 Urine Protein Negative mg/dL (<30 mg/dL) 01/06/18 20:00 Urine Glucose (UA) Negative mg/dL (NEGATIVE) 01/06/18 20:00 Urine Ketones Negative mg/dL (NEGATIVE) 01/06/18 20:00 Urine Blood Trace-intact (NEGATIVE) H 01/06/18 20:00 Urine Nitrate Negative (NEGATIVE) 01/06/18 20:00 Urine Bilirubin Negative (NEGATIVE) 01/06/18 20:00 Urine Urobilinogen 0.2 E.U./dL (<1 E.U./dL) 01/06/18 20:00 Ur Leukocyte Esterase Large Nay/uL (NEGATIVE) H 01/06/18 20:00 Urine RBC 0 - 2 /hpf (0-2) 01/06/18 20:00 Urine WBC 5 - 10 /hpf (0-6) 01/06/18 20:00 Ur Epithelial Cells None /hpf (0-5) 01/06/18 20:00 Urine Bacteria Trace (NEG) 01/06/18 20:00 - Hospital Course Hospital Course: Upon Admission: 87 yo female with PMH of systolic heart failure with AICD and on milrinone drip, Atrial fibrillation, hypothyroidism, gout, arthritis presented to the emergency department for medication refill. Patient states that she was previously in [facility] for the past 3 months on a milrinone drip with repeated refills per her motor builder assembler, Dr. Alcantara. Patient reports that she was discharged from rehab with accommodations for her milirone drip but had a recent insurance change leaving her unable to obtain a refill the medication. Additionally, she noticed her machine was malfunctioning. During Hospital Course patient was treated for her systolic heart failure s/p ICD, atrial fibrillation, and mild DAPHNE. Last EF was 8% in 03/30/2016 indicating. severe non ischemic cardiomyopathy. As per cardiology, there is no other alternative to milrinone drip at this time. Patient received milrinone infusion drip throughout hospital stay and received lasix 40mg PO, digoxin, imdur, cozaar, toprol XL and aldactone. Patient was continued on coumadin and INR was monitored through hospital stay and kept therapeutic. Patient noted to have DAPHNE likely 2/2 hemodynamic instability from severe cardiomyopathy. slab worker was able to have patient approved for milrinone infusion pump and patient discharged with plan to travel to [place] with daughter. Discharge Exam - Head Exam Head Exam: ATRAUMATIC, NORMAL INSPECTION - Additional Findings Additional findings: - Constitutional Appears: No Acute Distress - Head Exam Head Exam: ATRAUMATIC, NORMAL INSPECTION - Eye Exam Eye Exam: EOMI - ENT Exam ENT Exam: Mucous Membranes Moist - Respiratory Exam Respiratory Exam: Clear to Ausculation Bilateral. absent: Accessory Muscle Use, Wheezes - Cardiovascular Exam Cardiovascular Exam: REGULAR RHYTHM, +S1, +S2 - GI/Abdominal Exam GI & Abdominal Exam: Normal Bowel Sounds. absent: Guarding, Rigid - Extremities Exam Extremities Exam: Normal Inspection. Distal pulses +2 absent: Calf Tenderness - Neurological Exam Neurological Exam: Alert, Oriented x3 - Skin Skin Exam: Normal Color, Warm Discharge Plan - Discharge Medications Prescriptions: RX: Allopurinol [Zyloprim] 200 mg PO BID #60 tab RX: Colchicine 0.3 mg PO DAILY PRN #30 tablet PRN Reason: gout RX: Digoxin 0.125 mg PO Q48H #15 tab RX: Famotidine [Pepcid] 20 mg PO HS #30 tab RX: Furosemide [Lasix] 40 mg PO DAILY #30 tab RX: Isosorbide Mononitrate ER [Imdur ER] 30 mg PO DAILY #30 tab RX: Levothyroxine [Synthroid] 112 mcg PO DAILY #30 tab RX: Losartan [Cozaar] 25 mg PO DAILY #30 tab RX: Metoprolol Succinate XL [Toprol XL] 25 mg PO BRK #30 tab RX: Spironolactone 12.5 mg PO BID 14 Days #60 tablet RX: Warfarin [Coumadin] 4 mg PO DAILY 3 Days #3 tab - Follow Up Plan Condition: STABLE Disposition: HOME/ ROUTINE Instructions: Heart Healthy Diet, Heart Failure, Adult (DC), Milrinone Additional Instructions: Instructions has provided to Daughter, Sadie, with whom Ms. Barlow will stay in [place] starting this 01/15. Please establish care with primary care doctor Dr Carlo Monet ([phone]) in [place] on Tuesday01/16/18 as scheduled. You will need your INR checked on that day and you will need to get any adjusted Coumadin dosing or refills needed from your primary care doctor. Your potassium level was found to be slightly elevated. You will need to have blood work done on Tuesday01/16/18 to recheck your levels with your primary care doctor. A nurse from [facility] visiting nursing agency will be coming to your house in [place] on 01/16/2018. Their personnel specialist is Janell Davis [phone], fax [phone]. [facility] will be giving you the milrinone infusion and pump for home. Please establish care with motor builder assembler within 3-5 days after move to [place] this week. Per Dr Alcantara, take wafarin 4 mg daily. Stop home warfarin dosage. Follow up with Cardiology in [place] within 3-5 days of discharge, for monitoring of your INR levels. As discussed with you, you do not need refills for any other medications at this time except for the coumadin. Please return to the Emergency Room for any new or worsening symptoms. Referrals: Juan Jose Alcantara MD [Staff Provider] - Boaz Green MD [Primary Care Provider] - <Leeanne Finley - Last Filed: 01/16/18 15:37> Provider - Provider Date of Admission: 01/09/18 13:18 Attending physician: Marvin Guerrero MD Primary care physician: Boaz Green MD Hospital Course - Lab Results Lab Results: Micro Results 01/06/18 21:58 Urine,Clean Catch Urine Culture - Final No Growth (<1,000 CFU/ML) Most Recent Lab Values WBC 6.3 10^3/uL (4.5-11.0) 01/14/18 07:30 RBC 3.43 10^6/uL (3.5-6.1) L 01/14/18 07:30 Hgb 10.6 g/dL (12.0-16.0) L 01/14/18 07:30 Hct 32.6 % (36.0-48.0) L 01/14/18 07:30 MCV 95.0 fl (80.0-105.0) 01/14/18 07:30 MCH 30.9 pg (25.0-35.0) 01/14/18 07:30 MCHC 32.5 g/dl (31.0-37.0) 01/14/18 07:30 RDW 15.6 % (11.5-14.5) H 01/14/18 07:30 Plt Count 202 10^3/uL (120.0-450.0) 01/14/18 07:30 MPV 10.1 fl (7.0-11.0) 01/14/18 07:30 Gran % 45.1 % (50.0-68.0) L 01/14/18 07:30 Lymph % (Auto) 39.0 % (22.0-35.0) H 01/14/18 07:30 [place] % (Auto) 8.9 % (1.0-6.0) H 01/14/18 07:30 Eos % (Auto) 6.4 % (1.5-5.0) H 01/14/18 07:30 Baso % (Auto) 0.6 % (0.0-3.0) 01/14/18 07:30 Gran # 2.84 (1.4-6.5) 01/14/18 07:30 Lymph # (Auto) 2.5 (1.2-3.4) 01/14/18 07:30 [place] # (Auto) 0.6 (0.1-0.6) 01/14/18 07:30 Eos # (Auto) 0.4 (0.0-0.7) 01/14/18 07:30 Baso # (Auto) 0.04 K/mm3 (0.0-2.0) 01/14/18 07:30 PT 27.9 SECONDS (9.4-12.5) H 01/14/18 07:30 INR 2.38 01/14/18 07:30 APTT 28.4 Seconds (25.1-36.5) 01/07/18 06:00 Sodium 134 mmol/L (132-148) 01/14/18 07:30 Potassium 5.2 mmol/L (3.6-5.0) H 01/14/18 07:30 Chloride 99 mmol/L (98-107) 01/14/18 07:30 Carbon Dioxide 28 mmol/L (21-33) 01/14/18 07:30 Anion Gap 13 (10-20) 01/14/18 07:30 BUN 42 mg/dL (7-21) H 01/14/18 07:30 Creatinine 1.7 mg/dl (0.7-1.2) H 01/14/18 07:30 Est GFR ( Amer) 34 01/14/18 07:30 Est GFR (Non-Af Amer) 28 01/14/18 07:30 Random Glucose 97 mg/dL (70-110) 01/14/18 07:30 Hemoglobin A1c 6.2 % (4.2-6.5) 01/07/18 06:00 Uric Acid 3.5 mg/dL (2.5-6.2) 01/11/18 06:00 Calcium 9.4 mg/dL (8.4-10.5) 01/14/18 07:30 Phosphorus 3.5 mg/dL (2.5-4.5) 01/07/18 06:00 Magnesium 1.9 mg/dL (1.7-2.2) 01/07/18 06:00 Total Bilirubin 0.4 mg/dL (0.2-1.3) 01/14/18 07:30 AST 48 U/L (14-36) H 01/14/18 07:30 ALT 46 U/L (7-56) 01/14/18 07:30 Alkaline Phosphatase 125 U/L (38-126) 01/14/18 07:30 Troponin I 0.06 ng/mL 01/06/18 18:30 NT-Pro-B Natriuret Pep 3280 pg/mL (0-450) H 01/06/18 18:30 Total Protein 6.8 g/dL (5.8-8.3) 01/14/18 07:30 Albumin 3.6 g/dL (3.0-4.8) 01/14/18 07:30 Globulin 3.2 gm/dL 01/14/18 07:30 Albumin/Globulin Ratio 1.1 (1.1-1.8) 01/14/18 07:30 Triglycerides 44 mg/dL (35-160) 01/07/18 06:00 Cholesterol 129 mg/dL (130-200) L 01/07/18 06:00 LDL Cholesterol Direct 74 mg/dL (0-129) 01/07/18 06:00 HDL Cholesterol 44 mg/dL (29-60) 01/07/18 06:00 Free T4 1.52 ng/dL (0.78-2.19) 01/07/18 06:00 TSH 3rd Generation 3.35 mIU/mL (0.46-4.68) 01/07/18 06:00 Urine Color Light yellow (YELLOW) 01/06/18 20:00 Urine Appearance Clear (CLEAR) 01/06/18 20:00 Urine pH 6.0 (4.7-8.0) 01/06/18 20:00 Ur Specific [place] 1.015 (1.005-1.035) 01/06/18 20:00 Urine Protein Negative mg/dL (<30 mg/dL) 01/06/18 20:00 Urine Glucose (UA) Negative mg/dL (NEGATIVE) 01/06/18 20:00 Urine Ketones Negative mg/dL (NEGATIVE) 01/06/18 20:00 Urine Blood Trace-intact (NEGATIVE) H 01/06/18 20:00 Urine Nitrate Negative (NEGATIVE) 01/06/18 20:00 Urine Bilirubin Negative (NEGATIVE) 01/06/18 20:00 Urine Urobilinogen 0.2 E.U./dL (<1 E.U./dL) 01/06/18 20:00 Ur Leukocyte Esterase Large Nay/uL (NEGATIVE) H 01/06/18 20:00 Urine RBC 0 - 2 /hpf (0-2) 01/06/18 20:00 Urine WBC 5 - 10 /hpf (0-6) 01/06/18 20:00 Ur Epithelial Cells None /hpf (0-5) 01/06/18 20:00 Urine Bacteria Trace (NEG) 01/06/18 20:00 Attending/Attestation - Attestation I have personally seen and examined this patient.: Yes I have fully participated in the care of the patient.: Yes I have reviewed all pertinent clinical information, including history, physical exam and plan: Yes Notes (Text): Please note dc summary is for 01/14/18. Patient seen and examined by me with resident at 8:30AM on 01/14/18. Case incl uding discharge plan discussed with resident. Agree with above with following additions/corrections. Patient is an 87 year old female with past medical history significant for systolic heart failure s/p ICD on milrinone drip, atrial fibrillation on coumadin, hypothyroidism, gout, and arthritis that presented to the emergency room for medication refill and malfunctioning of milrinone drip. Please see H&P for full details. Patient was admitted with systolic CHF s/p ICD on milrinone, DAPHNE, a-fib, gout, and hypothyroidism. Cardiology was consulted and following. INR was subtherapeutic on admission. Patient was placed on milrinone drip, digoxin, imdur, cozaar, metoprolol, and aldactone for severe nonischemic cardiomyopathy and chronic systolic CHF. Patient was given Coumadin at 7.5mg until INR was therapeutic. Patient was then started on 4mg of Coumadin. Patient was continued on allopurinol and colchicine for history of gout. Patient was also found to have DAPHNE likely secondary to severe cardiomyopathy. Creatinine was stable. Patient was continued on synthroid for hypothyroidism. Patient also with anemia of chronic disease. H&H was stable. Patient was able to have milrinone infusion set up for home. INR was therapeutic. Shortness of breath with ambulation resolved. Patient was discharged home. On day of discharge, patient stated she was feeling pretty good. Patient stated she was ready to go home. Patient denied any chest pain or shortness of breath. No palpitations. No headaches or dizziness. No change in vision. No nausea, vomiting, or abdominal pain. No dysuria. No fevers or chills. No diarrhea or constipation. Patient was ambulating without shortness of breath. Physical exam: General: Awake and alert lying in bed in no acute distress HEENT: Normocephalic, atraumatic. Extraocular muscles intact, pupils equal and reactive, no scleral icterus. Oropharynx is pink and moist. Neck is supple. Cardiovascular: Normal rhythm. Normal S1, S2. No murmurs, rubs, or gallops isaias reciated Pulmonary: Normal respiratory effort. No rhonchi, rales, or wheezing appreciated Gastrointestinal: Soft, nondistended. Nontender. Positive bowel sounds all 4 quadrants. No guarding. Musculoskeletal: Moves all extremities. No edema appreciated. No calf tenderness. Central nervous system: AAO x3, CN 2-12 grossly intact Dermatologic: Skin warm and dry. Please see chart for full details. Follow up instructions: Patient to establish care with primary care doctor Dr. Carlo Monet ([phone]) in [place] on Tuesday01/16/18 as scheduled. Patient will need INR checked and Coumadin dose adjusted if needed. Patient to take 4mg of Coumadin until INR checked per motor builder assembler Dr. Alcantara. Patient will need repeat blood work to check her potassium level. A nurse from [facility] visiting nursing agency will be going to patients house in [place] on 01/16/2018. All instructions explained to in detail. Patient both understands and agrees to all instructions. Written instructions also given. Time spent in discharging the patient including chart review, medication reconciliation, discussion with the patient, medical office technician, consultants, and nursing staff was 40 minutes.
== END 2018-01-14 21:20 | disposition home or self-care (01) | DRG 315 ==
LOC: ED 16:39 → ERH 19:09 → 2RNO 23:02 → OBSVTOIN 01-09 13:18 → 2RNO 01-11 20:07
PROVIDERS: ADMIT Hospitalist; ATTEND Internal Medicine
DX: I42.0 Dilated cardiomyopathy (principal); I50.22 Chronic systolic (congestive) heart failure; N17.9 Acute kidney failure, unspecified; I47.2 Ventricular tachycardia; I48.0 Paroxysmal atrial fibrillation; I48.2 Chronic atrial fibrillation; I08.1 Rheumatic disorders of both mitral and tricuspid valves; D63.8 Anemia in other chronic diseases classified elsewhere; M10.9 Gout, unspecified; E03.9 Hypothyroidism, unspecified; Z79.899 Other long term (current) drug therapy; Z66 Do not resuscitate; M79.641 Pain in right hand; R79.1 Abnormal coagulation profile; Z79.01 Long term (current) use of anticoagulants; Z95.810 Presence of automatic (implantable) cardiac defibrillator; Z86.73 Personal history of transient ischemic attack (TIA), and cerebral infarction without residual deficits; Z87.891 Personal history of nicotine dependence; Z91.14 Patient's other noncompliance with medication regimen; Z82.49 Family history of ischemic heart disease and other diseases of the circulatory system